=== PATIENT | male | born 1935 | race African-American/Black ===

== ENCOUNTER 2017-01-02 12:49 | Inpatient (IN) | payer MEDICARE ==
[~2017-01-02] VITALS: Ht 170.2 cm; Wt 80.7 kg
[2017-01-02 12:50] VITALS: BP 105/49
[2017-01-02] MEDS ORDERED: Esomeprazole sodium 40mg vial IVP ONE (13:00)
--- NOTE | 2017-01-02 13:00 | Emergency Room Report ---
History of Present Illness General Chief Complaint: Gastrointestinal Bleed Source: Significant Other, EMS Present Illness HPI 81-year-old male history of respiratory failure with trach, bedbound nonverbal, diabetes, multiple pressure ulcers, presenting from residential with congestion , vomiting, and coffee-ground emesis. Per residential charts patient is not on any blood thinners. History is limited as patient is nonverbal Allergies: Coded Allergies: No Known Allergies (Unverified , 01/02/17) Patient History Limited by: medical condition Past Medical History: see triage record Past Surgical History: unable to obtain Pertinent Family History: unable to obtain Reviewed Nursing Documentation: PMH: Agreed, PSxH: Agreed Review of Systems All Other Systems: limited - Dementia nonverbal Physical Exam Vital Signs Date Time Temp Pulse Resp B/P (MAP) Pulse Ox O2 Delivery O2 Flow Rate FiO2 01/02/17 12:47 100.9 127 18 105/49 99 T-piece 5.0 Sp02 EP Interpretation: reviewed, abnormal - Satting 99 on 5 L O2 General Appearance: other - Chronically ill-appearing male, trach, nonverbal Head: normocephalic, atraumatic Eyes: bilateral eye normal inspection, bilateral eye PERRL, bilateral eye EOMI ENT: normal ENT inspection, dry mucus membranes Neck: normal inspection, full range of motion, supple Respiratory: other - Trach, coarse breath sounds bilaterally, mildly tachypneic at 25, chest symmetrical Cardiovascular #1: normal inspection, regular rate, rhythm, no edema, normal capillary refill Cardiovascular #2: 2+ radial (R), 2+ radial (L) Gastrointestinal: soft, non-distended, no guarding, other - PEG tube in place, no grimace to deep palpation all quadrants of abdomen Genitourinary: no CVA tenderness Musculoskeletal: non-tender, other - Contracted lower extremities. Neurologic: other - Nonverbal and not responsive, not following commands Psychiatric: memory normal Skin: other - 5 x 5 cm sacral decubital ulcer stage III, mild purulent drainage Procedures Critical Care Time Critical Care Time 40 minutes of CC time 81-year-old male with coffee-ground emesis VS: Febrile tachycardic borderline hypotensive Sepsis criteria met Pt trached, not vented PLAN: IV access, labs, lactate, Blood/Urine Cx, Abx Anticipate admission to [facility] CC time also includes review of labs, review of EMR, paperwork from SNF, d/w hospitalist CC could include dosing of pressors, additional Abx CC time does not include procedures Medical Decision Making Diagnostic Impression: Primary Impression: Coffee ground emesis Additional Impressions: Severe sepsis Hyperkalemia UTI (urinary tract infection) Respiratory failure ER Course 81-year-old male bedbound nonverbal treat presenting with congestion, coffee- ground emesis DDX: Sepsis 2/2 UTI, PNA, bacteremia, will also consider intra-abdominal pathology such as colitis / diverticulitis / acalculous cholecystitis if no other course found but at this time abdomen soft, NT, ND. Upper GI bleed Plan: IV access - 30cc/kg bolus NS Obtain labs including cbc, bmp, blood culture, blood gas, lactate, ua, ucx CXR EKG Broad spectrum ABX Nexium IV ER course: Patient given NS at 30cc/kg bolus Patient's BP has remained stable with MAP > 65 Given broad spectrum abx - vancomycin and zosyn UTI Labs revealing leukocytosis, hyperkalemia (treated) Nexium IV given There have been no episodes of coffee-ground emesis in the emergency room Disposition: Patient will admitted to [facility] Patient requires close monitoring of respiratory/hemodynamic status and continuation of IV antibiotics. D/W Hospitalist Please note that this Emergency Department Report was dictated using [employer] blueprinting and photocopy technology software, occasionally this can lead to erroneous entry secondary to interpretation by the dictation equipment. Laboratory Tests Test 01/02/17 13:00 01/02/17 13:10 01/02/17 14:45 01/03/17 04:15 White Blood Count 15.5 K/UL (4.8-10.8) H 11.4 K/UL (4.8-10.8) H Red Blood Count 3.58 M/UL (4.70-6.10) L 3.34 M/UL (4.70-6.10) L Hemoglobin 10.1 G/DL (14.2-18.0) L 9.5 G/DL (14.2-18.0) L Hematocrit 32.2 % (42.0-52.0) L 30.1 % (42.0-52.0) L Mean Corpuscular Volume 90 FL (80-99) 90 FL (80-99) Mean Corpuscular Hemoglobin 28.1 PG (27.0-31.0) 28.4 PG (27.0-31.0) Mean Corpuscular Hemoglobin Concent 31.3 G/DL (32.0-36.0) L 31.5 G/DL (32.0-36.0) L Red Cell Distribution Width 15.7 % (11.6-14.8) H 15.7 % (11.6-14.8) H Platelet Count 262 K/UL (150-450) 240 K/UL (150-450) Mean Platelet Volume 7.7 FL (6.5-10.1) 7.3 FL (6.5-10.1) Neutrophils (%) (Auto) 81.5 % (45.0-75.0) H 70.5 % (45.0-75.0) Lymphocytes (%) (Auto) 10.4 % (20.0-45.0) L 16.6 % (20.0-45.0) L Monocytes (%) (Auto) 7.0 % (1.0-10.0) 11.5 % (1.0-10.0) H Eosinophils (%) (Auto) 0.1 % (0.0-3.0) 0.9 % (0.0-3.0) Basophils (%) (Auto) 1.0 % (0.0-2.0) 0.5 % (0.0-2.0) Prothrombin Time 9.6 SEC (9.30-11.50) Prothrombin Time INR 0.9 (0.9-1.1) PTT 21 SEC (23-33) L Sodium Level 135 mEQ/L (135-145) Pending Potassium Level 5.6 mEQ/L (3.4-4.9) H Pending Chloride Level 91 mEQ/L (98-107) L Pending Carbon Dioxide Level 33 mEQ/L (20-30) H Pending Anion Gap 11 (5-15) Blood Urea Nitrogen 21 mg/dL (7-23) Pending Creatinine 0.7 mg/dL (0.7-1.2) Pending Estimate Glomerular Filtration Rate mL/min (>60) Pending Glucose Level 105 mg/dL (74-106) Pending Hemoglobin A1c 5.9 % (< 6.0) Lactic Acid Level 2.00 mmol/L (0.66-2.22) 1.90 mmol/L (0.66-2.22) Calcium Level 9.6 mg/dL (8.6-10.2) Pending Total Bilirubin 0.2 mg/dL (0.0-1.2) 0.3 mg/dL (0.0-1.2) Aspartate Amino Transferase (AST) 34 U/L (5-40) 14 U/L (5-40) Alanine Aminotransferase (ALT) 10 U/L (3-41) 6 U/L (3-41) Alkaline Phosphatase 136 U/L (40-129) H 100 U/L (40-129) Total Creatine Kinase 88 U/L (38-174) Creatine Kinase MB < 1.5 ng/mL (< 6.7) Creatine Kinase MB Relative Index 1.7 Troponin I < 0.30 ng/mL (<=0.30) Total Protein 8.8 g/dL (6.6-8.7) H 7.1 g/dL (6.6-8.7) Albumin 2.9 g/dL (3.5-5.2) L 2.5 g/dL (3.5-5.2) L Globulin 5.9 g/dL Albumin/Globulin Ratio 0.4 (1.0-2.7) L Lipase 16 U/L (< 60) Valproic Acid Level 39 ug/mL (50-100) L Urine Color Yellow Urine Appearance Slightly cloudy Urine pH 8 (4.5-8.0) Urine Specific [place] 1.010 (1.005-1.035) Urine Protein 3+ (NEGATIVE) H Urine Glucose (UA) Negative (NEGATIVE) Urine Ketones Negative (NEGATIVE) Urine Occult Blood 5+ (NEGATIVE) H Urine Nitrite Negative (NEGATIVE) Urine Bilirubin Negative (NEGATIVE) Urine Urobilinogen Normal MG/DL (0.0-1.0) Urine Leukocyte Esterase 3+ (NEGATIVE) H Urine RBC 40-60 /HPF (0 - 0) H Urine WBC 20-30 /HPF (0 - 0) H Urine Squamous Epithelial Cells Occasional /LPF Urine Bacteria Many /HPF (NONE) H Urine Mucus Few /LPF (NONE/OCC) H Magnesium Level Pending Direct Bilirubin 0.1 mg/dL (0.1-0.3) Pro-B-Type Natriuretic Peptide Pending EKG Diagnostic Results Rate: tachycardiac Rhythm: NSR ST Segments: other - TWI aVL ASA given to the pt in ED: No Rhythm Strip Diag. Results EP Interpretation: yes Rate: 120 Rhythm: no PVC's, no ectopy Chest X-Ray Diagnostic Results Chest X-Ray Diagnostic Results : Chest X-Ray Ordered: Yes # of Views/Limited/Complete: 1 View Indication: Shortness of Breath EP Interpretation: Yes Electronically Signed by: Electronically signed by Fidel Rodriguez MD Last Vital Signs Date Time Temp Pulse Resp B/P (MAP) Pulse Ox O2 Delivery O2 Flow Rate FiO2 01/02/17 12:47 100.9 127 18 105/49 99 T-piece 5.0 Disposition: ADMITTED INPATIENT Condition: Critical Fidel Rodriguez M.D. Jan 02, 2017 13:00
[2017-01-02] MEDS ORDERED: Acetaminophen 650 MG SUPP RECTAL ONE (13:15)
[2017-01-02 13:36] LABS: APPEARANCE,URINE SLIGHTLY CLOUDY; KETONES,URINE NEGATIVE (NEGATIVE); LEUKOCYTE ESTERASE ,URINE 3+ (NEGATIVE); NITRITE,URINE NEGATIVE (NEGATIVE); PH,URINE 8 (4.5-8.0); PROTEIN,URINE 3+ (NEGATIVE); UROBILINOGEN,URINE NORMAL MG/DL (0.0-1.0)
[2017-01-02 13:37] LABS: EOSINOPHILS % (AUTO) 0.1 % (0.0-3.0); LYMPHOCYTES % (AUTO) 10.4 % (20.0-45.0); MEAN CORPUSCULAR HEMOGLOBIN 28.1 PG (27.0-31.0); MEAN CORPUSCULAR HGB CONC 31.3 G/DL (32.0-36.0); MEAN CORPUSCULAR VOLUME 90 FL (80-99); MEAN PLATELET VOLUME 7.7 FL (6.5-10.1); NEUTROPHILS % (AUTO) 81.5 % (45.0-75.0); PLATELET COUNT 262 K/UL (150-450); RED BLOOD COUNT 3.58 M/UL (4.70-6.10); RED CELL DISTRIBUTION WIDTH 15.7 % (11.6-14.8); WHITE BLOOD COUNT 15.5 K/UL (4.8-10.8)
[2017-01-02 13:44] LABS: INR 0.9 (0.9-1.1); PROTHROMBIN TIME 9.6 SEC (9.30-11.50)
[2017-01-02] MEDS ORDERED: Zosyn 3.375gm inj ONE (13:44)
[2017-01-02] MEDS ORDERED: Piperacillin/Tazobactam 3.375 GM in NS 110 ML IVPB ONE (13:45)
[2017-01-02] MEDS ORDERED: Vancomycin 1.5gm/D5W 250ml 250 ML IVPB ONE (13:45)
[2017-01-02 13:47] LABS: RBC,URINE 40-60 /HPF (0 - 0); SQUAMOUS EPITHELIAL CELL,UR OCCASIONAL /LPF (NONE/OCC); WBC,URINE 20-30 /HPF (0 - 0)
[2017-01-02 13:48] LABS: BACTERIA,URINE MANY /HPF; MUCUS,URINE FEW /LPF (NONE/OCC)
[2017-01-02 13:51] LABS: ALANINE AMINOTRANSFERASE 10 U/L (3-41); ALBUMIN/GLOBULIN RATIO 0.4 (1.0-2.7); ANION GAP 11 (5-15); ASPARTATE AMINO TRANSFERASE 34 U/L (5-40); CALCIUM 9.6 mg/dL (8.6-10.2); CARBON DIOXIDE 33 mEQ/L (20-30); CHLORIDE 91 mEQ/L (98-107); CREATININE 0.7 mg/dL (0.7-1.2); HEMOLYSIS 85; LIPASE 16 U/L (< 60); POTASSIUM 5.6 mEQ/L (3.4-4.9); SODIUM 135 mEQ/L (135-145); TOTAL PROTEIN 8.8 g/dL (6.6-8.7)
[2017-01-02 13:52] LABS: TROPONIN I < 0.30 ng/mL (<=0.30)
[2017-01-02 13:56] LABS: REFLEX LACTIC ACID YES OR NO YES
[2017-01-02] MEDS ORDERED: ACETAMINOP160 MG/51 GT (13:56)
[2017-01-02] MEDS ORDERED: HIBICLENS118 ML ORAL (13:56)
[2017-01-02] MEDS ORDERED: DEPAKENE250 MG/5 M GT (13:56)
[2017-01-02] MEDS ORDERED: AMIKACIN S500 MG/2 M INH (13:56)
[2017-01-02] MEDS ORDERED: EPOGEN10000 UNIT SUBQ (13:57)
[2017-01-02] MEDS ORDERED: COLACE100 MG/10 GT (13:57)
[2017-01-02] MEDS ORDERED: HEPARIN SO5000 UNIT2 SUBQ (14:00)
[2017-01-02] MEDS ORDERED: FAMOTIDINE20 MG GT (14:00)
[2017-01-02] MEDS ORDERED: Sodium Bicarbonate 50ml Carp IV ONE (14:00)
[2017-01-02] MEDS ORDERED: FERROUS SU220 MG/53 GT (14:00)
[2017-01-02] MEDS ORDERED: LEVEMIR FL100 UNIT/2 SQ (14:00)
[2017-01-02] MEDS ORDERED: Calcium Gluconate 1gm/10ml vial IVP ONE (14:00)
[2017-01-02 14:02] LABS: CKMB < 1.5 ng/mL (< 6.7)
[2017-01-02 14:04] VITALS: BP 116/70
[2017-01-02] MEDS ORDERED: VIMPAT100 MG GT (14:05)
[2017-01-02] MEDS ORDERED: LEVETIRACE100 MG/1 M GT (14:05)
[2017-01-02] MEDS ORDERED: NORCO 5-325 TA1 EAC1 ORAL (14:05)
[2017-01-02] MEDS ORDERED: COMBIVENT RESPIM4 GM IH (14:05)
[2017-01-02] MEDS ORDERED: VITAMIN C250 MG GT (14:08)
[2017-01-02] MEDS ORDERED: ZINC SULFATE220 M1 GT (14:08)
[2017-01-02] MEDS ORDERED: POLYETHYLENE GL17 GM GT (14:08)
[2017-01-02] MEDS ORDERED: NOVOLOG100 UNIT/3 SUBQ (14:08)
[2017-01-02 16:00] VITALS: BP 113/59
[2017-01-02] MEDS ORDERED: DuoNeb 0.5-3(2.5)mg/3ml neb HHN PRN (16:15)
[2017-01-02] MEDS ORDERED: Milk of Magnesia 30ml Ud ORAL PRN (16:15)
[2017-01-02] MEDS: D5NS 1,000 ML IV SCH (16:51)
[2017-01-02] MEDS ORDERED: Miralax 17gm pkt GT PRN (17:00)
[2017-01-02 17:35] LABS: HEMOGLOBIN A1C 5.9 % (< 6.0)
--- NOTE | 2017-01-02 17:52 | Infectious Diseases Prog Note ---
Assessment/Plan Assessment/Plan Full consult to follow: A) 1) sepsis, uti, fever, leukocytosis, ? pna 2) pmh noted 3) allergies - nkda P) 1) zosyn and vancomycin 2) check chest x-ray, labs and cultures 3) thank you Subjective Allergies: Coded Allergies: No Known Allergies (Unverified , 01/02/17) Objective Vital Signs Last 24 Hour Vital Signs Date Time Temp Pulse Resp B/P (MAP) Pulse Ox O2 Delivery O2 Flow Rate FiO2 01/02/17 16:00 129 01/02/17 16:00 99.2 118 20 113/59 100 T-piece 5.0 01/02/17 15:20 134 23 145/55 100 T-piece 01/02/17 15:01 98.7 01/02/17 14:10 5.0 01/02/17 14:10 131 22 T-piece 5.0 01/02/17 14:04 127 20 116/70 100 T-piece 5.0 01/02/17 12:50 101.9 127 18 105/49 100 T-piece 5.0 01/02/17 12:47 100.9 127 18 105/49 99 T-piece 5.0 Height (Feet): 5 Height (Inches): 8.00 Weight (Pounds): 180 Laboratory Tests Test 01/02/17 13:00 01/02/17 13:10 01/02/17 14:45 White Blood Count 15.5 K/UL (4.8-10.8) H Red Blood Count 3.58 M/UL (4.70-6.10) L Hemoglobin 10.1 G/DL (14.2-18.0) L Hematocrit 32.2 % (42.0-52.0) L Mean Corpuscular Volume 90 FL (80-99) Mean Corpuscular Hemoglobin 28.1 PG (27.0-31.0) Mean Corpuscular Hemoglobin Concent 31.3 G/DL (32.0-36.0) L Red Cell Distribution Width 15.7 % (11.6-14.8) H Platelet Count 262 K/UL (150-450) Mean Platelet Volume 7.7 FL (6.5-10.1) Neutrophils (%) (Auto) 81.5 % (45.0-75.0) H Lymphocytes (%) (Auto) 10.4 % (20.0-45.0) L Monocytes (%) (Auto) 7.0 % (1.0-10.0) Eosinophils (%) (Auto) 0.1 % (0.0-3.0) Basophils (%) (Auto) 1.0 % (0.0-2.0) Prothrombin Time 9.6 SEC (9.30-11.50) Prothromb Time International Ratio 0.9 (0.9-1.1) Activated Partial Thromboplast Time 21 SEC (23-33) L Sodium Level 135 mEQ/L (135-145) Potassium Level 5.6 mEQ/L (3.4-4.9) H Chloride Level 91 mEQ/L (98-107) L Carbon Dioxide Level 33 mEQ/L (20-30) H Anion Gap 11 (5-15) Blood Urea Nitrogen 21 mg/dL (7-23) Creatinine 0.7 mg/dL (0.7-1.2) Estimat Glomerular Filtration Rate mL/min (>60) Glucose Level 105 mg/dL (74-106) Hemoglobin A1c 5.9 % (< 6.0) Lactic Acid Level 2.00 mmol/L (0.66-2.22) 1.90 mmol/L (0.66-2.22) Calcium Level 9.6 mg/dL (8.6-10.2) Total Bilirubin 0.2 mg/dL (0.0-1.2) Aspartate Amino Transf (AST/SGOT) 34 U/L (5-40) Alanine Aminotransferase (ALT/SGPT) 10 U/L (3-41) Alkaline Phosphatase 136 U/L (40-129) H Total Creatine Kinase 88 U/L (38-174) Creatine Kinase MB < 1.5 ng/mL (< 6.7) Creatine Kinase MB Relative Index 1.7 Troponin I < 0.30 ng/mL (<=0.30) Total Protein 8.8 g/dL (6.6-8.7) H Albumin 2.9 g/dL (3.5-5.2) L Globulin 5.9 g/dL Albumin/Globulin Ratio 0.4 (1.0-2.7) L Lipase 16 U/L (< 60) Valproic Acid (Depakene) Level 39 ug/mL (50-100) L Urine Color Yellow Urine Appearance Slightly cloudy Urine pH 8 (4.5-8.0) Urine Specific [place] 1.010 (1.005-1.035) Urine Protein 3+ (NEGATIVE) H Urine Glucose (UA) Negative (NEGATIVE) Urine Ketones Negative (NEGATIVE) Urine Occult Blood 5+ (NEGATIVE) H Urine Nitrite Negative (NEGATIVE) Urine Bilirubin Negative (NEGATIVE) Urine Urobilinogen Normal MG/DL (0.0-1.0) Urine Leukocyte Esterase 3+ (NEGATIVE) H Urine RBC 40-60 /HPF (0 - 0) H Urine WBC 20-30 /HPF (0 - 0) H Urine Squamous Epithelial Cells Occasional /LPF Urine Bacteria Many /HPF (NONE) H Urine Mucus Few /LPF (NONE/OCC) H Current Medications Medications (Trade) Dose Ordered Sig/Dorie Route PRN Reason Start Time Stop Time Status Last Admin Dose Admin Acetaminophen (Tylenol) 650 mg Q4H PRN ORAL Mild Pain (Pain Scale 1-3) 01/02/17 16:15 02/01/17 16:14 Albuterol/ Ipratropium (DuoNeb 0.5-3(2.5)mg/3ml) 3 ml Q4H PRN HHN Shortness of Breath 01/02/17 16:15 01/07/17 16:14 Bisacodyl (Dulcolax) 10 mg DAILYPRN PRN RECTAL Constipation 01/02/17 16:15 02/01/17 16:14 Dextrose (Dextrose 50%) STAT PRN IV Hypoglycemia 01/02/17 16:15 02/01/17 16:14 Dextrose/Sodium Chloride 1,000 ml @ 100 mls/hr Q10H IV 01/02/17 17:00 02/01/17 16:59 01/02/17 16:51 Docusate Sodium (Colace) 100 mg EVERY 12 HOURS ORAL 01/03/17 09:00 02/02/17 08:59 Heparin Sodium (Porcine) (Heparin 5000 units/ml) 5,000 units EVERY 12 HOURS SUBQ 01/02/17 21:00 02/01/17 20:59 Insulin Aspart (NovoLOG) Q6HR SUBQ 01/03/17 00:00 02/01/17 20:59 Ipratropium [place] (Atrovent) 500 mcg Q6HRT HHN 01/02/17 17:00 01/07/17 16:59 Lacosamide (Vimpat) 100 mg EVERY 12 HOURS ORAL 01/02/17 21:00 02/01/17 20:59 Levetiracetam (Keppra) 1,500 mg BID GT 01/02/17 18:00 02/01/17 17:59 Magnesium Hydroxide (Mom) 30 ml HSPRN PRN ORAL Constipation 01/02/17 16:15 02/01/17 16:14 Ondansetron HCl (Zofran) 4 mg Q6H PRN IVP Nausea & Vomiting 01/02/17 16:15 02/01/17 16:14 Pantoprazole (Protonix) 40 mg DAILY ORAL 01/03/17 09:00 02/02/17 08:59 Piperacillin Sod/ Tazobactam Sod 3.375 gm/Dextrose 110 ml @ 27.5 mls/hr Q8HR IVPB 01/02/17 22:00 01/09/17 21:59 Polyethylene Glycol (Miralax) 17 gm DAILYPRN PRN GT Constipation 01/02/17 17:00 02/01/17 16:59 Valproic Acid (Depakene) 500 mg Q8HR GT 01/02/17 22:00 02/01/17 21:59 Vancomycin HCl (Vanco rx to dose) 1 ea DAILY PRN MISC Per rx protocol 01/02/17 16:15 02/01/17 16:14 Vancomycin HCl/ Dextrose 250 ml @ 166.667 mls/hr Q24H IVPB 01/03/17 12:00 01/08/17 11:59 JENNIFER BEVERLY Jan 02, 2017 17:52
[2017-01-02] MEDS: levETIRAcetam 500mg/5ml Liquid GT SCH (18:02)
[2017-01-02] MEDS: Ipratropium 0.02% Inh Soln 2.5ml UD HHN SCH (19:24)
[2017-01-02 20:00] VITALS: BP_SYST 120; BP_SYST 126; BP_DIAS 60; BP_DIAS 64
--- NOTE | 2017-01-02 20:06 | History and Physical ---
History of Present Illness General Date patient seen: Jan 02, 2017 Time patient seen: 18:00 Reason for Hospitalization: Sepsis, UTI, concern for GI bleed Present Illness HPI 81 year old male with pmh of HTN, DM2, seizure disorder, advanced dementia, s/p trach and PEG, recurrently infected sacral decubitus ulcers presenting from SNF with congestion and coffee-ground emesis. At baseline pt is nonverbal, nonambulatory, bedbound and demented at a senior care. He is poorly responsive , occasionally spontaneously opens eyes but not to command. Per senior care charts patient is not on any blood thinners. In ED, pt febrile to 101, WBC 15K, tachycardic to 140s. Pt found to have positive U/A. Given vanco and zosyn for sepsis, as well as IVFs. No coffee- ground emesis noted. Pt started on PPI. Allergies: Coded Allergies: No Known Allergies (Unverified , 01/02/17) Medication History Scheduled Amikacin Sulfate (Amikacin Sulfate*), 500 MG INH BID, (Reported) Ascorbic Acid* (Vitamin C*), Unknown Dose GT DAILY, (Reported) Chlorhexidine Gluconate* (Hibiclens*), 5 OZ ORAL EVERY 12 HOURS, (Reported) Docusate Sodium (Docusate Sodium), 100 MG GT TWICE A DAY, (Reported) Epoetin Dereje (Epogen), 10,000 UNIT SUBQ 3XW, (Reported) Famotidine (Famotidine), 20 MG GT TWICE A DAY, (Reported) Ferrous Sulfate (Ferrous Sulfate), 7.5 MG GT DAILY, (Reported) Heparin Sod (Porcine) (Heparin Sodium*), 5,000 UNITS SUBQ EVERY 12 HOURS, ( Reported) Insulin Aspart* (Novolog*), 0 SUBQ BEFORE MEALS AND HS, (Reported) Insulin Detemir (Levemir Flextouch), 42 UNIT SQ BID, (Reported) Lacosamide (Vimpat), 100 MG GT EVERY 12 HOURS, (Reported) Levetiracetam* (Levetiracetam*), 1,500 MG GT BID, (Reported) Valproate Sodium (Depakene), 500 MG GT EVERY 8 HOURS, (Reported) Zinc Sulfate (Zinc Sulfate*), 220 MG GT DAILY, (Reported) Scheduled PRN Acetaminophen* (Acetaminophen*), 320 MG GT Q6H PRN for Mild Pain/Temp > 100.5, ( Reported) Hydrocodone Bit/Acetaminophen 5-325* ([place] 5-325 Tablet*), 1 TAB ORAL Q6HR PRN for For Pain, (Reported) Ipratropium/Albuterol Sulfate (Combivent Respimat Inhal [place]), 3 ML IH EVERY 6 HOURS PRN for Shortness of Breath, (Reported) Polyethylene Glycol 3350* (Polyethylene Glycol 3350*), 17 GM GT DAILY PRN for Constipation, (Reported) Patient History History Provided By: Family Member, Medical Record, PMD Healthcare decision maker Resuscitation status Full Code Advanced Directive on File Past Medical/Surgical History Past Medical/Surgical History: (1) Advanced dementia (2) Tracheostomy in place (3) S/P percutaneous endoscopic gastrostomy (PEG) tube placement (4) HTN (hypertension) (5) Seizure disorder (6) Diabetes mellitus Family History Family History: Patient reports no known family medical history. Social History Social History: (1) lives at [facility] Review of Systems ROS Narrative Unable to obtain as pt w/ dementia and non-verbal Physical Exam Physical Exam Narrative General: Non-verbal, unresponsive to voice or pain, +trach Head: normocephalic, without obvious abnormality, atraumatic Eyes: conjunctivae/corneas clear. PERRL Throat: lips, mucosa, and tongue normal. MMM Neck: supple, symmetrical, trachea midline, and no JVD Lungs: clear to auscultation bilaterally Heart: regular rate and rhythm, S1, S2 normal, no murmur, click, rub or gallop Abdomen: soft, non-tender, non-distended, bowel sounds normal; +PEG Extremities: extremities normal, atraumatic, no cyanosis or edema Pulses: 2+ and symmetric Skin: skin color, texture, turgor normal; no rashes or lesions Neurologic: grossly normal, no focal deficits Last 24 Hour Vital Signs Date Time Temp Pulse Resp B/P (MAP) Pulse Ox O2 Delivery O2 Flow Rate FiO2 01/02/17 19:28 55 01/02/17 19:28 104 20 100 Trach Collar 5.0 35 01/02/17 19:27 Trach Collar 5.0 35 01/02/17 19:24 104 20 T-piece 5.0 01/02/17 19:24 104 20 Trach Collar 5.0 35 9/16/17 16:00 129 01/02/17 16:00 99.2 118 20 113/59 100 T-piece 5.0 01/02/17 15:20 134 23 145/55 100 T-piece 01/02/17 15:01 98.7 01/02/17 14:10 5.0 01/02/17 14:10 131 22 T-piece 5.0 01/02/17 14:04 127 20 116/70 100 T-piece 5.0 01/02/17 12:50 101.9 127 18 105/49 100 T-piece 5.0 01/02/17 12:47 100.9 127 18 105/49 99 T-piece 5.0 Intake and Output 01/02/17 01/03/17 19:00 07:00 Intake Total 1360 ml Output Total 750 ml Balance 610 ml Intake Free Water 50 ml IV Total 1310 ml Output Urine Total 750 ml Laboratory Tests Test 01/02/17 13:00 01/02/17 13:10 01/02/17 14:45 White Blood Count 15.5 K/UL (4.8-10.8) H Red Blood Count 3.58 M/UL (4.70-6.10) L Hemoglobin 10.1 G/DL (14.2-18.0) L Hematocrit 32.2 % (42.0-52.0) L Mean Corpuscular Volume 90 FL (80-99) Mean Corpuscular Hemoglobin 28.1 PG (27.0-31.0) Mean Corpuscular Hemoglobin Concent 31.3 G/DL (32.0-36.0) L Red Cell Distribution Width 15.7 % (11.6-14.8) H Platelet Count 262 K/UL (150-450) Mean Platelet Volume 7.7 FL (6.5-10.1) Neutrophils (%) (Auto) 81.5 % (45.0-75.0) H Lymphocytes (%) (Auto) 10.4 % (20.0-45.0) L Monocytes (%) (Auto) 7.0 % (1.0-10.0) Eosinophils (%) (Auto) 0.1 % (0.0-3.0) Basophils (%) (Auto) 1.0 % (0.0-2.0) Prothrombin Time 9.6 SEC (9.30-11.50) Prothromb Time International Ratio 0.9 (0.9-1.1) Activated Partial Thromboplast Time 21 SEC (23-33) L Sodium Level 135 mEQ/L (135-145) Potassium Level 5.6 mEQ/L (3.4-4.9) H Chloride Level 91 mEQ/L (98-107) L Carbon Dioxide Level 33 mEQ/L (20-30) H Anion Gap 11 (5-15) Blood Urea Nitrogen 21 mg/dL (7-23) Creatinine 0.7 mg/dL (0.7-1.2) Estimat Glomerular Filtration Rate mL/min (>60) Glucose Level 105 mg/dL (74-106) Hemoglobin A1c 5.9 % (< 6.0) Lactic Acid Level 2.00 mmol/L (0.66-2.22) 1.90 mmol/L (0.66-2.22) Calcium Level 9.6 mg/dL (8.6-10.2) Total Bilirubin 0.2 mg/dL (0.0-1.2) Aspartate Amino Transf (AST/SGOT) 34 U/L (5-40) Alanine Aminotransferase (ALT/SGPT) 10 U/L (3-41) Alkaline Phosphatase 136 U/L (40-129) H Total Creatine Kinase 88 U/L (38-174) Creatine Kinase MB < 1.5 ng/mL (< 6.7) Creatine Kinase MB Relative Index 1.7 Troponin I < 0.30 ng/mL (<=0.30) Total Protein 8.8 g/dL (6.6-8.7) H Albumin 2.9 g/dL (3.5-5.2) L Globulin 5.9 g/dL Albumin/Globulin Ratio 0.4 (1.0-2.7) L Lipase 16 U/L (< 60) Valproic Acid (Depakene) Level 39 ug/mL (50-100) L Urine Color Yellow Urine Appearance Slightly cloudy Urine pH 8 (4.5-8.0) Urine Specific [place] 1.010 (1.005-1.035) Urine Protein 3+ (NEGATIVE) H Urine Glucose (UA) Negative (NEGATIVE) Urine Ketones Negative (NEGATIVE) Urine Occult Blood 5+ (NEGATIVE) H Urine Nitrite Negative (NEGATIVE) Urine Bilirubin Negative (NEGATIVE) Urine Urobilinogen Normal MG/DL (0.0-1.0) Urine Leukocyte Esterase 3+ (NEGATIVE) H Urine RBC 40-60 /HPF (0 - 0) H Urine WBC 20-30 /HPF (0 - 0) H Urine Squamous Epithelial Cells Occasional /LPF Urine Bacteria Many /HPF (NONE) H Urine Mucus Few /LPF (NONE/OCC) H Height (Feet): 5 Height (Inches): 8.00 Weight (Pounds): 180 Medications Current Medications Medications (Trade) Dose Ordered Sig/Dorie Route PRN Reason Start Time Stop Time Status Last Admin Dose Admin Acetaminophen (Tylenol) 650 mg Q4H PRN ORAL Mild Pain (Pain Scale 1-3) 01/02/17 16:15 02/01/17 16:14 Albuterol/ Ipratropium (DuoNeb 0.5-3(2.5)mg/3ml) 3 ml Q4H PRN HHN Shortness of Breath 01/02/17 16:15 01/07/17 16:14 Bisacodyl (Dulcolax) 10 mg DAILYPRN PRN RECTAL Constipation 01/02/17 16:15 02/01/17 16:14 Dextrose (Dextrose 50%) STAT PRN IV Hypoglycemia 01/02/17 16:15 02/01/17 16:14 Dextrose/Sodium Chloride 1,000 ml @ 100 mls/hr Q10H IV 01/02/17 17:00 02/01/17 16:59 01/02/17 16:51 Docusate Sodium (Colace) 100 mg EVERY 12 HOURS ORAL 01/03/17 09:00 02/02/17 08:59 Heparin Sodium (Porcine) (Heparin 5000 units/ml) 5,000 units EVERY 12 HOURS SUBQ 01/02/17 21:00 02/01/17 20:59 Insulin Aspart (NovoLOG) Q6HR SUBQ 01/03/17 00:00 02/01/17 20:59 Ipratropium [place] (Atrovent) 500 mcg Q6HRT HHN 01/02/17 17:00 01/07/17 16:59 01/02/17 19:24 Lacosamide (Vimpat) 100 mg EVERY 12 HOURS ORAL 01/02/17 21:00 02/01/17 20:59 Levetiracetam (Keppra) 1,500 mg BID GT 01/02/17 18:00 02/01/17 17:59 01/02/17 18:02 Magnesium Hydroxide (Mom) 30 ml HSPRN PRN ORAL Constipation 01/02/17 16:15 02/01/17 16:14 Ondansetron HCl (Zofran) 4 mg Q6H PRN IVP Nausea & Vomiting 01/02/17 16:15 02/01/17 16:14 Pantoprazole (Protonix) 40 mg DAILY ORAL 01/03/17 09:00 02/02/17 08:59 Piperacillin Sod/ Tazobactam Sod 3.375 gm/Dextrose 110 ml @ 27.5 mls/hr Q8HR IVPB 01/02/17 22:00 01/09/17 21:59 Polyethylene Glycol (Miralax) 17 gm DAILYPRN PRN GT Constipation 01/02/17 17:00 02/01/17 16:59 Valproic Acid (Depakene) 500 mg Q8HR GT 01/02/17 22:00 02/01/17 21:59 Vancomycin HCl (Vanco rx to dose) 1 ea DAILY PRN MISC Per rx protocol 01/02/17 16:15 02/01/17 16:14 Vancomycin HCl/ Dextrose 250 ml @ 166.667 mls/hr Q24H IVPB 01/03/17 12:00 01/08/17 11:59 Assessment/Plan Problem List: (1) Decubitus ulcer of sacral region, stage 4 ICD Codes: L89.154 - Pressure ulcer of sacral region, stage 4 SNOMED: 184489775, 722430552 (2) Severe sepsis ICD Codes: A41.9 - Sepsis, unspecified organism; R65.20 - Severe sepsis without septic shock SNOMED: 22300852 (3) UTI (urinary tract infection) ICD Codes: N39.0 - Urinary tract infection, site not specified SNOMED: 90962866 (4) Coffee ground emesis ICD Codes: K92.0 - Hematemesis SNOMED: 191690775, 62096278 (5) Acute blood loss anemia ICD Codes: D62 - Acute posthemorrhagic anemia SNOMED: 043903066 (6) Advanced dementia ICD Codes: F03.90 - Unspecified dementia without behavioral disturbance SNOMED: 55554357 (7) Tracheostomy in place ICD Codes: Z93.0 - Tracheostomy status SNOMED: 837682311 (8) S/P percutaneous endoscopic gastrostomy (PEG) tube placement ICD Codes: Z93.1 - Gastrostomy status SNOMED: 670263917 (9) Hyperkalemia ICD Codes: E87.5 - Hyperkalemia SNOMED: 48397139 (10) HTN (hypertension) ICD Codes: I10 - Essential (primary) hypertension SNOMED: 73683944 (11) Seizure disorder ICD Codes: G40.909 - Epilepsy, unspecified, not intractable, without status epilepticus SNOMED: 393719914 (12) Diabetes mellitus ICD Codes: E11.9 - Type 2 diabetes mellitus without complications SNOMED: 67717731 (13) Functional quadriplegia ICD Codes: R53.2 - Functional quadriplegia SNOMED: 932759037423638 Status: stable Assessment/Plan Admit to [facility], Pulm and ID consulted Broad-spectrum abx: vanco and zosyn for now (01/02-) F/u urine and blood cultures IVFs Monitor lytes closely Type and screen Trend CBC, transfuse for hgb<7.5 or active bleeding NPO, hold tube feeds for now Trach and PEG care Wound care consult Supportive care DVT Prophylaxis: SCD Code Status: Full Hospital Classification Declaration: Based on this initial evaluation, and depending on the patient's clinical course, I anticipate that this patient will require hospitalization for 2-3 days for severe sepsis and close respiratory/ hemodynamic monitoring. Disposition: Once the patient is stable to leave the hospital, I anticipate the patient will likely be discharged to the following environment: back to SNF I spent 70 minutes on this patient's case, and 40 minutes were dedicated to counseling and/or care coordination. Discussed with patient/family, nursing staff, SW/CM, pulm, ID, GI regarding clinical status, treatment course, and disposition planning. Time of note may not reflect time of encounter. Travis Hinojosa M.D. Jan 02, 2017 20:06
[2017-01-02] MEDS: Heparin 5000 units/ml inj SUBQ SCH (21:00)
[2017-01-02] MEDS ORDERED: Dyna-Hex 2% Top Sol 8oz TOPIC SCH (21:00)
[2017-01-02] MEDS ORDERED: NovoLOG Insulin Flexpen SUBQ SCH (21:00)
[2017-01-02] MEDS: Lacosamide 100 MG TABLET ORAL SCH (21:36)
[2017-01-02] MEDS: Valproic Acid 250mg/5ml Liquid GT SCH (21:37)
[2017-01-02] MEDS: Piperacillin/Tazobactam 3.375 GM in D5W 110 ML IVPB SCH (21:38)
[2017-01-02] MEDS: NovoLOG Insulin Flexpen SUBQ SCH (23:49)
[2017-01-03] VITALS: BP 120/60
[2017-01-03] MEDS: Ipratropium 0.02% Inh Soln 2.5ml UD HHN SCH ×4 (01:12→19:17)
[2017-01-03] MEDS: D5NS 1,000 ML IV SCH ×3 (02:51→23:00)
[2017-01-03 04:00] VITALS: BP 127/58
[2017-01-03 05:24] LABS: BASOPHILS % (AUTO) 0.5 % (0.0-2.0); EOSINOPHILS % (AUTO) 0.9 % (0.0-3.0); LYMPHOCYTES % (AUTO) 16.6 % (20.0-45.0); MEAN CORPUSCULAR HEMOGLOBIN 28.4 PG (27.0-31.0); MEAN CORPUSCULAR HGB CONC 31.5 G/DL (32.0-36.0); MEAN CORPUSCULAR VOLUME 90 FL (80-99); MEAN PLATELET VOLUME 7.3 FL (6.5-10.1); MONOCYTES % (AUTO) 11.5 % (1.0-10.0); NEUTROPHILS % (AUTO) 70.5 % (45.0-75.0); PLATELET COUNT 240 K/UL (150-450); RED BLOOD COUNT 3.34 M/UL (4.70-6.10); RED CELL DISTRIBUTION WIDTH 15.7 % (11.6-14.8); WHITE BLOOD COUNT 11.4 K/UL (4.8-10.8)
[2017-01-03] MEDS: Valproic Acid 250mg/5ml Liquid GT SCH ×3 (05:57→21:33)
[2017-01-03] MEDS: NovoLOG Insulin Flexpen SUBQ SCH ×3 (05:58→17:35)
[2017-01-03] MEDS: Piperacillin/Tazobactam 3.375 GM in D5W 110 ML IVPB SCH ×3 (05:58→21:35)
[2017-01-03 06:39] LABS: BILIRUBIN,DIRECT 0.1 mg/dL (0.1-0.3); TOTAL PROTEIN 7.1 g/dL (6.6-8.7)
[2017-01-03 07:38] LABS: CHLORIDE 100 mEQ/L (98-107); POTASSIUM 3.8 mEQ/L (3.4-4.9); SODIUM 140 mEQ/L (135-145)
[2017-01-03 07:42] LABS: ANION GAP 9 (5-15); CALCIUM 9.1 mg/dL (8.6-10.2); CARBON DIOXIDE 31 mEQ/L (20-30); CREATININE 0.5 mg/dL (0.7-1.2)
[2017-01-03 07:50] LABS: MAGNESIUM 1.9 mg/dL (1.7-2.5)
[2017-01-03 08:00] VITALS: BP 113/56
[2017-01-03] MEDS: Lacosamide 100 MG TABLET ORAL SCH ×2 (09:00→20:58)
[2017-01-03] MEDS: Docusate 100mg cap ORAL SCH ×2 (09:01→20:58)
[2017-01-03] MEDS: levETIRAcetam 500mg/5ml Liquid GT SCH ×2 (09:01→17:35)
[2017-01-03] MEDS: Heparin 5000 units/ml inj SUBQ SCH ×2 (09:03→20:58)
[2017-01-03] MEDS ORDERED: D5NS 1000ml IV ONE (10:04)
[2017-01-03] MEDS ORDERED: Tubing IV Secondary IV ONE (10:04)
[2017-01-03] MEDS ORDERED: NS 275ml ONE (10:04)
--- NOTE | 2017-01-03 11:00 | Consultation ---
History of Present Illness General Date patient seen: Jan 03, 2017 Chief Complaint: Gastrointestinal Bleed Referring physician: Dr. Robles Present Illness HPI 81-year-old male with PMHx of of chronic respiratory failure with trach, bedbound nonverbal, diabetes, multiple pressure ulcers, PEG, end-stage Alzheimers, presenting from [facility] with congestion, vomiting, and coffee- ground emesis. Patient was febrile in [facility] and admitted to [facility] for further evaluation and treatment. Allergies: Coded Allergies: No Known Allergies (Unverified , 01/02/17) Medication History Scheduled Amikacin Sulfate (Amikacin Sulfate*), 500 MG INH BID, (Reported) Ascorbic Acid* (Vitamin C*), Unknown Dose GT DAILY, (Reported) Chlorhexidine Gluconate* (Hibiclens*), 5 OZ ORAL EVERY 12 HOURS, (Reported) Docusate Sodium (Docusate Sodium), 100 MG GT TWICE A DAY, (Reported) Epoetin Dereje (Epogen), 10,000 UNIT SUBQ 3XW, (Reported) Famotidine (Famotidine), 20 MG GT TWICE A DAY, (Reported) Ferrous Sulfate (Ferrous Sulfate), 7.5 MG GT DAILY, (Reported) Heparin Sod (Porcine) (Heparin Sodium*), 5,000 UNITS SUBQ EVERY 12 HOURS, ( Reported) Insulin Aspart* (Novolog*), 0 SUBQ BEFORE MEALS AND HS, (Reported) Insulin Detemir (Levemir Flextouch), 42 UNIT SQ BID, (Reported) Lacosamide (Vimpat), 100 MG GT EVERY 12 HOURS, (Reported) Levetiracetam* (Levetiracetam*), 1,500 MG GT BID, (Reported) Valproate Sodium (Depakene), 500 MG GT EVERY 8 HOURS, (Reported) Zinc Sulfate (Zinc Sulfate*), 220 MG GT DAILY, (Reported) Scheduled PRN Acetaminophen* (Acetaminophen*), 320 MG GT Q6H PRN for Mild Pain/Temp > 100.5, ( Reported) Hydrocodone Bit/Acetaminophen 5-325* ([place] 5-325 Tablet*), 1 TAB ORAL Q6HR PRN for For Pain, (Reported) Ipratropium/Albuterol Sulfate (Combivent Respimat Inhal [place]), 3 ML IH EVERY 6 HOURS PRN for Shortness of Breath, (Reported) Polyethylene Glycol 3350* (Polyethylene Glycol 3350*), 17 GM GT DAILY PRN for Constipation, (Reported) Patient History Healthcare decision maker Resuscitation status Full Code Advanced Directive on File Past Medical/Surgical History Past Medical/Surgical History: (1) Alzheimer's dementia (2) Tracheostomy care (3) G tube feedings Review of Systems All Other Systems: negative except mentioned in HPI Physical Exam General Appearance: WD/WN Lines, tubes and drains: peripheral HEENT: normocephalic, atraumatic Neck: non-tender, normal alignment Respiratory/Chest: chest wall non-tender, lungs clear Cardiovascular/Chest: normal peripheral pulses, normal rate Abdomen: normal bowel sounds, non tender Genitourinary/Rectal: normal genital exam, normal rectal exam Extremities: normal range of motion Skin Exam: normal pigmentation Last 24 Hour Vital Signs Date Time Temp Pulse Resp B/P (MAP) Pulse Ox O2 Delivery O2 Flow Rate FiO2 01/03/17 08:00 74 01/03/17 08:00 97.9 75 20 113/56 100 T-piece 5.0 01/03/17 08:00 5.0 01/03/17 07:01 99 T-piece 6.0 35 01/03/17 07:01 T-piece 6.0 35 01/03/17 06:35 88 20 99 Trach Collar 6.0 35 01/03/17 06:30 89 20 99 Trach Collar 6.0 35 01/03/17 06:30 35 01/03/17 04:00 79 01/03/17 04:00 97.7 80 20 127/58 100 T-piece 5.0 01/03/17 04:00 5.0 01/03/17 01:19 86 20 99 Trach Collar 5.0 30 01/03/17 01:12 55 01/03/17 01:12 70 20 97 Trach Collar 5.0 35 01/03/17 00:00 97.7 96 20 120/60 100 T-piece 5.0 01/03/17 00:00 85 01/02/17 20:00 5.0 01/02/17 20:00 111 01/02/17 20:00 99.0 111 19 126/64 100 T-piece 5.0 01/02/17 19:45 110 20 100 Trach Collar 5.0 35 01/02/17 19:28 55 01/02/17 19:28 104 20 100 Trach Collar 5.0 35 01/02/17 19:27 Trach Collar 5.0 35 01/02/17 19:24 104 20 T-piece 5.0 01/02/17 19:24 104 20 Trach Collar 5.0 35 01/02/17 16:00 129 01/02/17 16:00 99.2 118 20 113/59 100 T-piece 5.0 01/02/17 15:20 134 23 145/55 100 T-piece 01/02/17 15:01 98.7 01/02/17 14:10 5.0 01/02/17 14:10 131 22 T-piece 5.0 01/02/17 14:04 127 20 116/70 100 T-piece 5.0 01/02/17 12:50 101.9 127 18 105/49 100 T-piece 5.0 01/02/17 12:47 100.9 127 18 105/49 99 T-piece 5.0 Intake and Output 01/03/17 01/04/17 19:00 07:00 Intake Total 182.5 ml Balance 182.5 ml IV Total 182.5 ml Laboratory Tests Test 01/02/17 13:00 01/02/17 13:10 01/02/17 14:45 01/03/17 04:15 White Blood Count 15.5 K/UL (4.8-10.8) H 11.4 K/UL (4.8-10.8) H Red Blood Count 3.58 M/UL (4.70-6.10) L 3.34 M/UL (4.70-6.10) L Hemoglobin 10.1 G/DL (14.2-18.0) L 9.5 G/DL (14.2-18.0) L Hematocrit 32.2 % (42.0-52.0) L 30.1 % (42.0-52.0) L Mean Corpuscular Volume 90 FL (80-99) 90 FL (80-99) Mean Corpuscular Hemoglobin 28.1 PG (27.0-31.0) 28.4 PG (27.0-31.0) Mean Corpuscular Hemoglobin Concent 31.3 G/DL (32.0-36.0) L 31.5 G/DL (32.0-36.0) L Red Cell Distribution Width 15.7 % (11.6-14.8) H 15.7 % (11.6-14.8) H Platelet Count 262 K/UL (150-450) 240 K/UL (150-450) Mean Platelet Volume 7.7 FL (6.5-10.1) 7.3 FL (6.5-10.1) Neutrophils (%) (Auto) 81.5 % (45.0-75.0) H 70.5 % (45.0-75.0) Lymphocytes (%) (Auto) 10.4 % (20.0-45.0) L 16.6 % (20.0-45.0) L Monocytes (%) (Auto) 7.0 % (1.0-10.0) 11.5 % (1.0-10.0) H Eosinophils (%) (Auto) 0.1 % (0.0-3.0) 0.9 % (0.0-3.0) Basophils (%) (Auto) 1.0 % (0.0-2.0) 0.5 % (0.0-2.0) Prothrombin Time 9.6 SEC (9.30-11.50) Prothromb Time International Ratio 0.9 (0.9-1.1) Activated Partial Thromboplast Time 21 SEC (23-33) L Sodium Level 135 mEQ/L (135-145) 140 mEQ/L (135-145) Potassium Level 5.6 mEQ/L (3.4-4.9) H 3.8 mEQ/L (3.4-4.9) Chloride Level 91 mEQ/L (98-107) L 100 mEQ/L (98-107) Carbon Dioxide Level 33 mEQ/L (20-30) H 31 mEQ/L (20-30) H Anion Gap 11 (5-15) 9 (5-15) Blood Urea Nitrogen 21 mg/dL (7-23) 15 mg/dL (7-23) Creatinine 0.7 mg/dL (0.7-1.2) 0.5 mg/dL (0.7-1.2) L Estimat Glomerular Filtration Rate mL/min (>60) mL/min (>60) Glucose Level 105 mg/dL (74-106) 94 mg/dL (74-106) Hemoglobin A1c 5.9 % (< 6.0) Lactic Acid Level 2.00 mmol/L (0.66-2.22) 1.90 mmol/L (0.66-2.22) Calcium Level 9.6 mg/dL (8.6-10.2) 9.1 mg/dL (8.6-10.2) Total Bilirubin 0.2 mg/dL (0.0-1.2) 0.3 mg/dL (0.0-1.2) Aspartate Amino Transf (AST/SGOT) 34 U/L (5-40) 14 U/L (5-40) Alanine Aminotransferase (ALT/SGPT) 10 U/L (3-41) 6 U/L (3-41) Alkaline Phosphatase 136 U/L (40-129) H 100 U/L (40-129) Total Creatine Kinase 88 U/L (38-174) Creatine Kinase MB < 1.5 ng/mL (< 6.7) Creatine Kinase MB Relative Index 1.7 Troponin I < 0.30 ng/mL (<=0.30) Total Protein 8.8 g/dL (6.6-8.7) H 7.1 g/dL (6.6-8.7) Albumin 2.9 g/dL (3.5-5.2) L 2.5 g/dL (3.5-5.2) L Globulin 5.9 g/dL Albumin/Globulin Ratio 0.4 (1.0-2.7) L Lipase 16 U/L (< 60) Valproic Acid (Depakene) Level 39 ug/mL (50-100) L Urine Color Yellow Urine Appearance Slightly cloudy Urine pH 8 (4.5-8.0) Urine Specific [place] 1.010 (1.005-1.035) Urine Protein 3+ (NEGATIVE) H Urine Glucose (UA) Negative (NEGATIVE) Urine Ketones Negative (NEGATIVE) Urine Occult Blood 5+ (NEGATIVE) H Urine Nitrite Negative (NEGATIVE) Urine Bilirubin Negative (NEGATIVE) Urine Urobilinogen Normal MG/DL (0.0-1.0) Urine Leukocyte Esterase 3+ (NEGATIVE) H Urine RBC 40-60 /HPF (0 - 0) H Urine WBC 20-30 /HPF (0 - 0) H Urine Squamous Epithelial Cells Occasional /LPF Urine Bacteria Many /HPF (NONE) H Urine Mucus Few /LPF (NONE/OCC) H Magnesium Level 1.9 mg/dL (1.7-2.5) Direct Bilirubin 0.1 mg/dL (0.1-0.3) Pro-B-Type Natriuretic Peptide 796 pg/mL (0-450) H Microbiology Date/Time Source Procedure Growth Status 01/02/17 13:10 Urine,Clean Catch Urine Culture - Preliminary Gram Negative Sunday Resulted Height (Feet): 5 Height (Inches): 8.00 Weight (Pounds): 180 Medications Current Medications Medications (Trade) Dose Ordered Sig/Dorie Route PRN Reason Start Time Stop Time Status Last Admin Dose Admin Acetaminophen (Tylenol) 650 mg Q4H PRN ORAL Mild Pain (Pain Scale 1-3) 01/02/17 16:15 02/01/17 16:14 Albuterol/ Ipratropium (DuoNeb 0.5-3(2.5)mg/3ml) 3 ml Q4H PRN HHN Shortness of Breath 01/02/17 16:15 01/07/17 16:14 Bisacodyl (Dulcolax) 10 mg DAILYPRN PRN RECTAL Constipation 01/02/17 16:15 02/01/17 16:14 Dextrose (Dextrose 50%) STAT PRN IV Hypoglycemia 01/02/17 16:15 02/01/17 16:14 Dextrose/Sodium Chloride 1,000 ml @ 100 mls/hr Q10H IV 01/02/17 17:00 02/01/17 16:59 01/03/17 02:51 Docusate Sodium (Colace) 100 mg EVERY 12 HOURS ORAL 01/03/17 09:00 02/02/17 08:59 01/03/17 09:01 Heparin Sodium (Porcine) (Heparin 5000 units/ml) 5,000 units EVERY 12 HOURS SUBQ 01/02/17 21:00 02/01/17 20:59 01/03/17 09:03 Insulin Aspart (NovoLOG) Q6HR SUBQ 01/03/17 00:00 02/01/17 20:59 Ipratropium [place] (Atrovent) 500 mcg Q6HRT HHN 01/02/17 17:00 01/07/17 16:59 01/03/17 06:58 Lacosamide (Vimpat) 100 mg EVERY 12 HOURS ORAL 01/02/17 21:00 02/01/17 20:59 01/03/17 09:00 Levetiracetam (Keppra) 1,500 mg BID GT 01/02/17 18:00 02/01/17 17:59 01/03/17 09:01 Magnesium Hydroxide (Mom) 30 ml HSPRN PRN ORAL Constipation 01/02/17 16:15 02/01/17 16:14 Ondansetron HCl (Zofran) 4 mg Q6H PRN IVP Nausea & Vomiting 01/02/17 16:15 02/01/17 16:14 Pantoprazole (Protonix) 40 mg DAILY ORAL 01/03/17 09:00 02/02/17 08:59 01/03/17 09:00 Piperacillin Sod/ Tazobactam Sod 3.375 gm/Dextrose 110 ml @ 27.5 mls/hr Q8HR IVPB 01/02/17 22:00 01/09/17 21:59 01/03/17 05:58 Polyethylene Glycol (Miralax) 17 gm DAILYPRN PRN GT Constipation 01/02/17 17:00 02/01/17 16:59 Valproic Acid (Depakene) 500 mg Q8HR GT 01/02/17 22:00 02/01/17 21:59 01/03/17 05:57 Vancomycin HCl (Vanco rx to dose) 1 ea DAILY PRN MISC Per rx protocol 01/02/17 16:15 02/01/17 16:14 Vancomycin HCl/ Dextrose 250 ml @ 166.667 mls/hr Q24H IVPB 01/03/17 12:00 01/08/17 11:59 Assessment/Plan Problem List: (1) Respiratory failure ICD Codes: J96.90 - Respiratory failure, unspecified, unspecified whether with hypoxia or hypercapnia SNOMED: 065984476 (2) Severe sepsis ICD Codes: A41.9 - Sepsis, unspecified organism; R65.20 - Severe sepsis without septic shock SNOMED: 82890958 (3) Coffee ground emesis ICD Codes: K92.0 - Hematemesis SNOMED: 997854779, 05290857 (4) Tracheostomy care ICD Codes: Z43.0 - Encounter for attention to tracheostomy SNOMED: 404583908 (5) Alzheimer's dementia ICD Codes: G30.9 - Alzheimer's disease, unspecified SNOMED: 02625569 (6) G tube feedings ICD Codes: Z93.1 - Gastrostomy status SNOMED: 593651956, 516615927 (7) UTI (urinary tract infection) ICD Codes: N39.0 - Urinary tract infection, site not specified SNOMED: 58362461 Respiratory: monitor respiratory rate, adjust FIO2 Cardiac: continue to monitor HR/BP Renal: F/U I&O, keep IV fluid, other - d5 ns 100 cc/hour Infectious Disease: check cultures, continue antibiotics Gastrointestinal: hold feedings, abdominal imaging, other - EGD tomorrow Endocrine: monitor blood sugar Hematologic: monitor H/H Neurologic: PRN Ativan Affect: PRN ativan Time Spent (Minutes): 40 Notes Reviewed: cardio, renal Discussed with: nurses, consultants BAM SCHAEFFER Jan 03, 2017 10:59
--- NOTE | 2017-01-03 11:06 | Diagnostic Imaging Report ---
Indication: Dyspnea Comparison: None A single view chest radiograph was obtained. Findings: Tracheostomy noted. There is basilar atelectasis with several linear reticular densities noted at the lower lung sánchez. Lung volumes are slightly low. Heart is prominent in size. Bones are osteopenic. Impression: Basilar atelectasis. Doubt CHF/interstitial edema. Followup recommended.
[2017-01-03 11:58] VITALS: BP 128/66
[2017-01-03] MEDS ORDERED: Vancomycin 1250mg/D5W 250ml IVPB SCH (12:00)
[2017-01-03 16:00] VITALS: BP 132/66
--- NOTE | 2017-01-03 16:33 | Infectious Diseases Prog Note ---
Assessment/Plan Assessment/Plan Full consult dictated: A) 1) sepsis, gram neg uti/pyelonephritis, fever, leukocytosis 2) pmh noted 3) allergies - nkda P) 1) zosyn, discontinue vancomycin 2) check cultures and f/u labs 3) orders entered and noted 4) continue per Dr. Robles and consultants 4) wound care per protocol - doubt sepsis source Subjective Allergies: Coded Allergies: No Known Allergies (Unverified , 01/02/17) Objective Vital Signs Last 24 Hour Vital Signs Date Time Temp Pulse Resp B/P (MAP) Pulse Ox O2 Delivery O2 Flow Rate FiO2 01/03/17 12:35 75 20 99 Trach Collar 6.0 35 01/03/17 12:30 35 01/03/17 12:30 74 20 99 Trach Collar 6.0 35 01/03/17 12:00 76 01/03/17 12:00 5.0 01/03/17 11:58 97.7 78 20 128/66 100 T-piece 5.0 01/03/17 08:00 74 01/03/17 08:00 97.9 75 20 113/56 100 T-piece 5.0 01/03/17 08:00 5.0 01/03/17 07:01 99 T-piece 6.0 35 01/03/17 07:01 T-piece 6.0 35 01/03/17 06:35 88 20 99 Trach Collar 6.0 35 01/03/17 06:30 89 20 99 Trach Collar 6.0 35 01/03/17 06:30 35 01/03/17 04:00 79 01/03/17 04:00 97.7 80 20 127/58 100 T-piece 5.0 01/03/17 04:00 5.0 01/03/17 01:19 86 20 99 Trach Collar 5.0 30 01/03/17 01:12 55 01/03/17 01:12 70 20 97 Trach Collar 5.0 35 01/03/17 00:00 97.7 96 20 120/60 100 T-piece 5.0 01/03/17 00:00 85 01/02/17 20:00 5.0 01/02/17 20:00 111 01/02/17 20:00 99.0 111 19 126/64 100 T-piece 5.0 01/02/17 19:45 110 20 100 Trach Collar 5.0 35 01/02/17 19:28 55 01/02/17 19:28 104 20 100 Trach Collar 5.0 35 01/02/17 19:27 Trach Collar 5.0 35 01/02/17 19:24 104 20 T-piece 5.0 01/02/17 19:24 104 20 Trach Collar 5.0 35 Height (Feet): 5 Height (Inches): 8.00 Weight (Pounds): 180 Microbiology Date/Time Source Procedure Growth Status 01/02/17 13:10 Urine,Clean Catch Urine Culture - Preliminary Gram Negative Sunday Resulted Laboratory Tests Test 01/03/17 04:15 White Blood Count 11.4 K/UL (4.8-10.8) H Red Blood Count 3.34 M/UL (4.70-6.10) L Hemoglobin 9.5 G/DL (14.2-18.0) L Hematocrit 30.1 % (42.0-52.0) L Mean Corpuscular Volume 90 FL (80-99) Mean Corpuscular Hemoglobin 28.4 PG (27.0-31.0) Mean Corpuscular Hemoglobin Concent 31.5 G/DL (32.0-36.0) L Red Cell Distribution Width 15.7 % (11.6-14.8) H Platelet Count 240 K/UL (150-450) Mean Platelet Volume 7.3 FL (6.5-10.1) Neutrophils (%) (Auto) 70.5 % (45.0-75.0) Lymphocytes (%) (Auto) 16.6 % (20.0-45.0) L Monocytes (%) (Auto) 11.5 % (1.0-10.0) H Eosinophils (%) (Auto) 0.9 % (0.0-3.0) Basophils (%) (Auto) 0.5 % (0.0-2.0) Sodium Level 140 mEQ/L (135-145) Potassium Level 3.8 mEQ/L (3.4-4.9) Chloride Level 100 mEQ/L (98-107) Carbon Dioxide Level 31 mEQ/L (20-30) H Anion Gap 9 (5-15) Blood Urea Nitrogen 15 mg/dL (7-23) Creatinine 0.5 mg/dL (0.7-1.2) L Estimat Glomerular Filtration Rate mL/min (>60) Glucose Level 94 mg/dL (74-106) Calcium Level 9.1 mg/dL (8.6-10.2) Magnesium Level 1.9 mg/dL (1.7-2.5) Total Bilirubin 0.3 mg/dL (0.0-1.2) Direct Bilirubin 0.1 mg/dL (0.1-0.3) Aspartate Amino Transf (AST/SGOT) 14 U/L (5-40) Alanine Aminotransferase (ALT/SGPT) 6 U/L (3-41) Alkaline Phosphatase 100 U/L (40-129) Pro-B-Type Natriuretic Peptide 796 pg/mL (0-450) H Total Protein 7.1 g/dL (6.6-8.7) Albumin 2.5 g/dL (3.5-5.2) L Current Medications Medications (Trade) Dose Ordered Sig/Dorie Route PRN Reason Start Time Stop Time Status Last Admin Dose Admin Acetaminophen (Tylenol) 650 mg Q4H PRN ORAL Mild Pain (Pain Scale 1-3) 01/02/17 16:15 02/01/17 16:14 Albuterol/ Ipratropium (DuoNeb 0.5-3(2.5)mg/3ml) 3 ml Q4H PRN HHN Shortness of Breath 01/02/17 16:15 01/07/17 16:14 Bisacodyl (Dulcolax) 10 mg DAILYPRN PRN RECTAL Constipation 01/02/17 16:15 02/01/17 16:14 Dextrose (Dextrose 50%) STAT PRN IV Hypoglycemia 01/02/17 16:15 02/01/17 16:14 Dextrose/Sodium Chloride 1,000 ml @ 100 mls/hr Q10H IV 01/02/17 17:00 02/01/17 16:59 01/03/17 13:44 Docusate Sodium (Colace) 100 mg EVERY 12 HOURS ORAL 01/03/17 09:00 02/02/17 08:59 01/03/17 09:01 Heparin Sodium (Porcine) (Heparin 5000 units/ml) 5,000 units EVERY 12 HOURS SUBQ 01/02/17 21:00 02/01/17 20:59 01/03/17 09:03 Insulin Aspart (NovoLOG) Q6HR SUBQ 01/03/17 00:00 02/01/17 20:59 01/03/17 11:47 Ipratropium [place] (Atrovent) 500 mcg Q6HRT HHN 01/02/17 17:00 01/07/17 16:59 01/03/17 12:42 Lacosamide (Vimpat) 100 mg EVERY 12 HOURS ORAL 01/02/17 21:00 02/01/17 20:59 01/03/17 09:00 Levetiracetam (Keppra) 1,500 mg BID GT 01/02/17 18:00 02/01/17 17:59 01/03/17 09:01 Magnesium Hydroxide (Mom) 30 ml HSPRN PRN ORAL Constipation 01/02/17 16:15 02/01/17 16:14 Ondansetron HCl (Zofran) 4 mg Q6H PRN IVP Nausea & Vomiting 01/02/17 16:15 02/01/17 16:14 Pantoprazole (Protonix) 40 mg DAILY ORAL 01/03/17 09:00 02/02/17 08:59 01/03/17 09:00 Piperacillin Sod/ Tazobactam Sod 3.375 gm/Dextrose 110 ml @ 27.5 mls/hr Q8HR IVPB 01/02/17 22:00 01/09/17 21:59 01/03/17 13:44 Polyethylene Glycol (Miralax) 17 gm DAILYPRN PRN GT Constipation 01/02/17 17:00 02/01/17 16:59 Valproic Acid (Depakene) 500 mg Q8HR GT 01/02/17 22:00 02/01/17 21:59 01/03/17 13:43 Vancomycin HCl (Vanco rx to dose) 1 ea DAILY PRN MISC Per rx protocol 01/02/17 16:15 02/01/17 16:14 Vancomycin HCl/ Dextrose 250 ml @ 166.667 mls/hr Q24H IVPB 01/03/17 12:00 01/08/17 11:59 01/03/17 11:10 JENNIFER BEVERLY Jan 03, 2017 16:33
--- NOTE | 2017-01-03 17:45 | Consultation ---
DATE OF CONSULTATION: 01/03/2017 GASTROENTEROLOGY CONSULTATION CHIEF COMPLAINT: Coffee-ground emesis. History Of Present Illness: Most of the history is per chart. The patient has a history of chronic respiratory failure with trach, chronic dysphagia requiring G-tube, and nonverbal. In halfway, the patient had episode of coffee-grounds emesis and was transferred to hospital. PAST MEDICAL HISTORY: 1. Prior respiratory failure, now only on trach collar. 2. Dysphagia requiring G-tube placement. 3. Severe decubital ulcerations. 4. Diabetes. 5. Constipation. PAST SURGICAL HISTORY: Tracheostomy. MEDICATIONS: Please see medication reconciliation list. ALLERGIES: No known drug allergies. Social History: Currently lives in a halfway. No known prior history of alcohol or drug abuse. FAMILY HISTORY: Noncontributory. REVIEW OF SYSTEMS: Unable to obtain. PHYSICAL EXAMINATION: Vital Signs: Temperature 97.9 degrees, pulse 75, respirations 20, and blood pressure 113/56. HEENT: Normocephalic and atraumatic. Sclerae anicteric. NECK: Supple. No lymphadenopathy. CARDIOVASCULAR: Regular rhythm. Plus S1 and S2. LUNGS: Decreased breath sounds bilaterally based on the supine exam. Abdomen: Soft and nontender. G-tube in place. No rebound. No guarding. No peritoneal sign. EXTREMITIES: No cyanosis, no clubbing, no edema. Laboratory Data: Laboratories showed white count 7.4, hemoglobin 9.5, hematocrit 30, and platelet count is 240,000. Assessment: This is an 81-year-old male with significant medical problems as dictated above, came in with coffee-ground emesis and anemia. Plan: Keep the patient NPO. Continue on Protonix. Plan to do an endoscopy tomorrow for evaluation of upper gastrointestinal bleeding. I want to thank, Dr. Lima, for this kind referral. Chandrakant Tony M.D. DR: ANGEL JOB#: [id number] CC: Guy Lima M.D.; Fax#: [phone]
[2017-01-03 20:00] VITALS: BP 144/78
--- NOTE | 2017-01-03 21:43 | General Progress Note ---
Assessment/Plan Problem List: (1) Decubitus ulcer of sacral region, stage 4 ICD Codes: L89.154 - Pressure ulcer of sacral region, stage 4 SNOMED: 364976445, 883703252 (2) Severe sepsis ICD Codes: A41.9 - Sepsis, unspecified organism; R65.20 - Severe sepsis without septic shock SNOMED: 10001681 (3) UTI (urinary tract infection) ICD Codes: N39.0 - Urinary tract infection, site not specified SNOMED: 90971809 (4) Coffee ground emesis ICD Codes: K92.0 - Hematemesis SNOMED: 756046336, 69389774 (5) Acute blood loss anemia ICD Codes: D62 - Acute posthemorrhagic anemia SNOMED: 428018323 (6) Advanced dementia ICD Codes: F03.90 - Unspecified dementia without behavioral disturbance SNOMED: 57631358 (7) Tracheostomy in place ICD Codes: Z93.0 - Tracheostomy status SNOMED: 476873865 (8) S/P percutaneous endoscopic gastrostomy (PEG) tube placement ICD Codes: Z93.1 - Gastrostomy status SNOMED: 514560757 (9) Hyperkalemia ICD Codes: E87.5 - Hyperkalemia SNOMED: 60216767 (10) HTN (hypertension) ICD Codes: I10 - Essential (primary) hypertension SNOMED: 27116719 (11) Seizure disorder ICD Codes: G40.909 - Epilepsy, unspecified, not intractable, without status epilepticus SNOMED: 904805753 (12) Diabetes mellitus ICD Codes: E11.9 - Type 2 diabetes mellitus without complications SNOMED: 59478068 (13) Functional quadriplegia ICD Codes: R53.2 - Functional quadriplegia SNOMED: 911367741666202 Status: stable Assessment/Plan GI, Pulm and ID consulted D/c vanco (01/02-01/03) Cont zosyn (01/02-) F/u urine and blood cultures IVFs PPI Monitor lytes closely Type and screen Trend CBC, transfuse for hgb<7.5 or active bleeding NPO, hold tube feeds for now Possible plan for EGD tomorrow Trach and PEG care Wound care consult Supportive care DVT Prophylaxis: SCD Code Status: Full Hospital Classification Declaration: Based on this initial evaluation, and depending on the patient's clinical course, I anticipate that this patient will require hospitalization for 2-3 days for severe sepsis and close respiratory/ hemodynamic monitoring. Disposition: Once the patient is stable to leave the hospital, I anticipate the patient will likely be discharged to the following environment: back to SNF I spent 42 minutes on this patient's case, and 22 minutes were dedicated to counseling and/or care coordination. Discussed with patient/family, nursing staff, SW/CM, pulm, ID, GI regarding clinical status, treatment course, and disposition planning. Time of note may not reflect time of encounter. Subjective Date patient seen: Jan 03, 2017 Time patient seen: 14:20 ROS Limited/Unobtainable: Yes Allergies: Coded Allergies: No Known Allergies (Unverified , 01/02/17) Subjective No acute o/n events HR improved WBC down to 11K No fevers this AM Urine cx w/ >100K GNR Pt non-verbal, bed-bound at baseline. Poorly responsive at baseline Unable to obtain ROS given dementia, non-verbal Objective Last 24 Hour Vital Signs Date Time Temp Pulse Resp B/P (MAP) Pulse Ox O2 Delivery O2 Flow Rate FiO2 01/03/17 20:00 91 01/03/17 20:00 5.0 01/03/17 19:20 102 20 98 T-piece 8.0 30 01/03/17 19:19 30 01/03/17 19:18 100 20 96 T-piece 8.0 30 01/03/17 19:18 T-piece 8.0 30 01/03/17 19:17 97 T-piece 8.0 30 01/03/17 16:00 5.0 01/03/17 16:00 78 01/03/17 16:00 97.7 81 20 132/66 100 T-piece 5.0 01/03/17 12:35 75 20 99 Trach Collar 6.0 35 01/03/17 12:30 35 01/03/17 12:30 74 20 99 Trach Collar 6.0 35 01/03/17 12:00 76 01/03/17 12:00 5.0 01/03/17 11:58 97.7 78 20 128/66 100 T-piece 5.0 01/03/17 08:00 74 01/03/17 08:00 97.9 75 20 113/56 100 T-piece 5.0 01/03/17 08:00 5.0 01/03/17 07:01 99 T-piece 6.0 35 01/03/17 07:01 T-piece 6.0 35 01/03/17 06:35 88 20 99 Trach Collar 6.0 35 01/03/17 06:30 89 20 99 Trach Collar 6.0 35 01/03/17 06:30 35 01/03/17 04:00 79 01/03/17 04:00 97.7 80 20 127/58 100 T-piece 5.0 01/03/17 04:00 5.0 01/03/17 01:19 86 20 99 Trach Collar 5.0 30 01/03/17 01:12 55 01/03/17 01:12 70 20 97 Trach Collar 5.0 35 01/03/17 00:00 97.7 96 20 120/60 100 T-piece 5.0 01/03/17 00:00 85 Intake and Output 01/03/17 01/04/17 19:00 07:00 Intake Total 1142.500 ml Output Total 500 ml Balance 642.500 ml Intake Free Water 100 ml IV Total 1042.500 ml Output Urine Total 500 ml Laboratory Tests 01/03/17 04:15: White Blood Count 11.4H, Red Blood Count 3.34L, Hemoglobin 9.5L, Hematocrit 30.1L, Mean Corpuscular Volume 90, Mean Corpuscular Hemoglobin 28.4, Mean Corpuscular Hemoglobin Concent 31.5L, Red Cell Distribution Width 15.7H, Platelet Count 240, Mean Platelet Volume 7.3, Neutrophils (%) (Auto) 70.5, Lymphocytes (%) (Auto) 16.6L, Monocytes (%) (Auto) 11.5H, Eosinophils (%) (Auto ) 0.9, Basophils (%) (Auto) 0.5, Sodium Level 140, Potassium Level 3.8, Chloride Level 100, Carbon Dioxide Level 31H, Anion Gap 9, Blood Urea Nitrogen 15, Creatinine 0.5L, Estimat Glomerular Filtration Rate , Glucose Level 94, Calcium Level 9.1, Magnesium Level 1.9, Total Bilirubin 0.3, Direct Bilirubin 0.1, Aspartate Amino Transf (AST/SGOT) 14, Alanine Aminotransferase (ALT/SGPT) 6 , Alkaline Phosphatase 100, Pro-B-Type Natriuretic Peptide 796H, Total Protein 7.1, Albumin 2.5L Height (Feet): 5 Height (Inches): 8.00 Weight (Pounds): 180 Objective General: Non-verbal, unresponsive to voice or pain, +trach Head: normocephalic, without obvious abnormality, atraumatic Eyes: conjunctivae/corneas clear. PERRL Throat: lips, mucosa, and tongue normal. MMM Neck: supple, symmetrical, trachea midline, and no JVD Lungs: clear to auscultation bilaterally Heart: regular rate and rhythm, S1, S2 normal, no murmur, click, rub or gallop Abdomen: soft, non-tender, non-distended, bowel sounds normal; +PEG Extremities: extremities normal, atraumatic, no cyanosis or edema Pulses: 2+ and symmetric Skin: skin color, texture, turgor normal; no rashes or lesions Neurologic: grossly normal, no focal deficits General: Non-verbal, unresponsive to voice or pain, +trach Head: normocephalic, without obvious abnormality, atraumatic Eyes: conjunctivae/corneas clear. PERRL Throat: lips, mucosa, and tongue normal. MMM Neck: supple, symmetrical, trachea midline, and no JVD Lungs: clear to auscultation bilaterally Heart: regular rate and rhythm, S1, S2 normal, no murmur, click, rub or gallop Abdomen: soft, non-tender, non-distended, bowel sounds normal; +PEG Extremities: extremities normal, atraumatic, no cyanosis or edema Pulses: 2+ and symmetric Skin: skin color, texture, turgor normal; no rashes or lesions Neurologic: grossly normal, no focal deficits Travis Hinojosa M.D. Jan 03, 2017 21:43
[2017-01-04] VITALS: BP 133/77
[2017-01-04] MEDS ORDERED: Metoprolol 5mg/5ml Inj IVP SCH (01:00)
[2017-01-04] MEDS: Ipratropium 0.02% Inh Soln 2.5ml UD HHN SCH ×4 (01:00→19:21)
[2017-01-04] MEDS: D5NS 1,000 ML IV SCH (03:56)
[2017-01-04 04:00] VITALS: BP 123/84
[2017-01-04 04:47] LABS: BASOPHILS % (AUTO) 0.9 % (0.0-2.0); EOSINOPHILS % (AUTO) 1.8 % (0.0-3.0); LYMPHOCYTES % (AUTO) 20.2 % (20.0-45.0); MEAN CORPUSCULAR HEMOGLOBIN 27.8 PG (27.0-31.0); MEAN CORPUSCULAR HGB CONC 31.2 G/DL (32.0-36.0); MEAN CORPUSCULAR VOLUME 89 FL (80-99); MEAN PLATELET VOLUME 7.5 FL (6.5-10.1); MONOCYTES % (AUTO) 11.4 % (1.0-10.0); NEUTROPHILS % (AUTO) 65.7 % (45.0-75.0); PLATELET COUNT 208 K/UL (150-450); RED BLOOD COUNT 3.35 M/UL (4.70-6.10); RED CELL DISTRIBUTION WIDTH 15.5 % (11.6-14.8); WHITE BLOOD COUNT 8.4 K/UL (4.8-10.8)
[2017-01-04 04:56] LABS: PROTHROMBIN TIME 10.7 SEC (9.30-11.50)
[2017-01-04 05:07] LABS: ALANINE AMINOTRANSFERASE 6 U/L (3-41); ALBUMIN/GLOBULIN RATIO 0.4 (1.0-2.7); ANION GAP 7 (5-15); ASPARTATE AMINO TRANSFERASE 14 U/L (5-40); CALCIUM 10.3 mg/dL (8.6-10.2); CARBON DIOXIDE 31 mEQ/L (20-30); CHLORIDE 100 mEQ/L (98-107); CREATININE 0.4 mg/dL (0.7-1.2); LACTATE DEHYDROGENASE 220 U/L (135-230); MAGNESIUM 1.8 mg/dL (1.7-2.5); PHOSPHORUS 2.7 mg/dL (2.5-4.8); POTASSIUM 3.4 mEQ/L (3.4-4.9); SODIUM 138 mEQ/L (135-145); TOTAL PROTEIN 6.9 g/dL (6.6-8.7)
[2017-01-04 05:41] LABS: HEMOLYSIS 8; IRON 29 ug/dL (59-158); TOTAL IRON BINDING CAPACITY 190 ug/dL (250-400)
[2017-01-04] MEDS: Valproic Acid 250mg/5ml Liquid GT SCH ×3 (05:46→21:04)
[2017-01-04] MEDS: Piperacillin/Tazobactam 3.375 GM in D5W 110 ML IVPB SCH ×3 (05:47→21:05)
[2017-01-04] MEDS: NovoLOG Insulin Flexpen SUBQ SCH ×4 (05:48→17:13)
[2017-01-04 06:04] LABS: ERYTHROCYTE SEDIMENTATION RATE 105 MM/HR (0-30)
[2017-01-04 06:06] LABS: RETICULOCYTE COUNT 2.5 % (0.0-2.0)
[2017-01-04 06:07] LABS: PATH BLOOD SMEAR/OMC SENT TO PATHOLOGIST
[2017-01-04 08:00] VITALS: BP 121/75
[2017-01-04] MEDS: levETIRAcetam 500mg/5ml Liquid GT SCH ×2 (08:43→17:10)
[2017-01-04] MEDS: Docusate 100mg cap ORAL SCH ×2 (08:43→21:03)
[2017-01-04] MEDS: Lacosamide 100 MG TABLET ORAL SCH ×2 (08:43→21:03)
[2017-01-04] MEDS: Heparin 5000 units/ml inj SUBQ SCH ×2 (08:47→21:06)
--- NOTE | 2017-01-04 09:30 | Consultation ---
DATE OF CONSULTATION: 01/03/2017 INFECTIOUS DISEASES CONSULTATION CONSULTING PHYSICIAN: Bear Ocampo M.D. ATTENDING PHYSICIAN: Guy Lima M.D. I was asked by Dr. Robles to see this patient. Reason For Consultation: Gram-negative UTI, pyelonephritis, and sepsis. Chief Complaint: The patient's chief complaint coming to the hospital is sepsis and coffee-ground emesis. History Of Present Illness: This is an 81-year-old male with tracheostomy. He is clearly not on a vent. He does have a Crump. He presents to [facility] with fevers and leukocytosis likely septic. Workup shows that he has Gram-negative UTI/pyelonephritis and sepsis. Infectious Diseases consultation is requested for antibiotic management. Chest x-ray shows CHF and interstitial edema, no consolidation mentioned, it does show atelectasis also. The patient is on Zosyn and vancomycin. The patient's vancomycin will be discontinued. Final cultures are pending. MAR was noted. Orders noted. Notes and records were reviewed. The patient did come in with coffee-ground emesis also. Past Medical History: The patient's past medical history includes history of following: The patient has a past medical history of trach, no vent. Currently, he has history of respiratory failure. He has a history of being bedbound. He has history of diabetes, history of pressure ulcers, trach, respiratory failure, and history of congestion. He came in with coffee-ground emesis. History of PEG, Alzheimer's, G-tube, dysphagia, and diabetes. He is anemic also. Please see past medical history in medical order. Medications: Upon reviewing the MAR, he is on the following medications. He is on vancomycin, which I have discontinued. He is on Protonix. He is on Colace, NovoLog insulin, Zosyn, piperacillin and tazobactam, Depakene, heparin, Lacosamide, Keppra, MiraLAX, Atrovent, breathing treatments including DuoNeb, Tylenol, bisacodyl, Zofran, vancomycin and Zosyn antibiotics. ALLERGIES: No known drug allergies. No antibiotic allergies. Family History: Per the records. No mention of exposure to tuberculosis or cancer. Social History: Per the records, no mention of smoking, alcohol, or drug abuse. Review Of Systems: General: He has generalized weakness. Opens eyes. He has a trach, but no vent. Head And Neck: He has trach. Cardiac: No pressors. Gastrointestinal: No nausea, vomiting, or diarrhea. Also, he came in with coffee-ground emesis. Genitourinary: He has a Crump. Pulmonary: Mild congestion noted. Skin: No rash. He has wounds that are covered. Neurologic: No seizures. He has generalized weakness and fatigue. Overall, poorly responsive. PHYSICAL EXAMINATION: Vital Signs: Temperature on admission was 101.9, currently temperature is 97.7 degrees, pulse rate is 75, respiratory rate 20, and saturation 99%. He is on trach collar with FiO2 35%. His heart rate has been as high as 131 on admission. General: Opens eyes occasionally, but overall lethargic, poorly responsive. HEENT: Oral exam, no thrush. He has trach intact. Trach collar. No vent. Normocephalic. Eye exam, no icterus. NECK: Supple. HEART: Regular. No gallop or murmur. Lungs: Few bilateral rhonchi. Decreased breath sounds and crackles. No definite rales. ABDOMEN: Soft. Positive bowel sounds. SKIN: No rash or dermatitis. MUSCULOSKELETAL: No effusion or contractures. EXTREMITIES: Legs are without cellulitis. PERIPHERAL VASCULAR: No cyanosis or gangrene. GENITOURINARY: He has a Crump. LINES: Line sites without phlebitis. NEUROLOGIC: Responsive. Opens eyes with generalized weakness noted. Skin: Multiple wounds reviewed and did not look acutely infected to me. Laboratory And Diagnostic Data: Laboratory data is as follows, white count is 11.4 and hemoglobin 9.5. White count initially is 15.5. Creatinine 0.5. Cultures grew. Urine culture growing greater than 100,000 gram-negative rods. Identification is pending. Urinalysis had 3+ leukocyte esterase, 23 white blood cells, and many bacteria. Imaging Studies: Chest x-ray shows there is no obvious consolidation, but does show atelectasis. ASSESSMENT AND PLAN: 1. The patient has likely severe sepsis with fevers, leukocytosis, and altered mental status. The patient has a Gram-negative urinary tract infection plus pyelonephritis with sepsis syndrome. Continue Zosyn for Gram-negative coverage. I will discontinue vancomycin. Chest x-ray shows no obvious pneumonia or consolidation. Continue Zosyn. Check urine culture and labs. 2. Wound care protocol. I do not think wounds are clearly infected. 3. Anemia. 4. Tracheostomy, no ventilator and history of respiratory failure. 5. Dysphagia and gastrostomy tube. 6. Diabetes. 7. History of pressure ulcers. Wound care protocol. 8. History of Alzheimer's. 9. Dementia. 10. Poor historian. 11. Chronic respiratory failure. 12. Bedbound. 13. Weakness. 14. Coffee-ground emesis, treatment per primary consultants. 15. Allergies are negative. 16. MAR was noted. 17. Case was discussed with RN. 18. Family history is noncontributory. 19. Notes are reviewed. 20. MAR was noted. 21. Continue treatment per primary consultants. 22. skin care per protocol - doubt wounds septic source 23. Notes and records were reviewed. I was asked by Dr. Robles to see this patient in Infectious Diseases consult. Bear Ocampo M.D. DR: LAURA JOB#: [id number] CC: QUINTON
--- NOTE | 2017-01-04 11:01 | Pulmonology Progress Note ---
Assessment/Plan Problems: (1) Respiratory failure (2) Severe sepsis (3) Coffee ground emesis (4) Tracheostomy care (5) Alzheimer's dementia (6) G tube feedings (7) UTI (urinary tract infection) Respiratory: monitor respiratory rate, adjust FIO2, CXR Cardiac: continue to monitor HR/BP Renal: F/U I&O, keep IV fluid Infectious Disease: check cultures Gastrointestinal: continue feedings/current rate, adjust feedings, start feedings Endocrine: monitor blood sugar, check HgA1C, continue sliding scale insulin Hematologic: monitor H/H, transfuse if hgb<8.5 Neurologic: PRN Ativan, keep patient comfortable Affect: PRN ativan Notes Reviewed: hydrometallurgical engineer, renal Discussed with: nurses, consultants, watch case polisher Subjective ROS Limited/Unobtainable: Yes Constitutional: Reports: no symptoms HEENT: Repors: no symptoms Allergies: Coded Allergies: No Known Allergies (Unverified , 01/02/17) Objective Last 24 Hour Vital Signs Date Time Temp Pulse Resp B/P (MAP) Pulse Ox O2 Delivery O2 Flow Rate FiO2 01/04/17 08:00 28 01/04/17 08:00 92 01/04/17 08:00 98.7 98 20 121/75 100 T-piece 01/04/17 07:33 81 20 100 Trach Collar 6.0 01/04/17 07:31 T-piece 6.0 01/04/17 07:24 28 01/04/17 07:24 80 20 98 Trach Collar 6.0 01/04/17 07:20 99 T-piece 6.0 01/04/17 04:00 30 01/04/17 04:00 97.5 96 20 123/84 100 T-piece 01/04/17 04:00 105 01/04/17 01:36 T-piece 8.0 01/04/17 01:34 T-piece 8.0 01/04/17 01:30 99 T-piece 6.0 01/04/17 01:30 T-piece 6.0 01/04/17 01:10 140 133/77 01/04/17 00:00 30 01/04/17 00:00 97.5 130 20 133/77 100 T-piece 01/04/17 00:00 130 01/03/17 20:00 91 9/17/17 20:00 97.5 96 20 144/78 99 T-piece 5.0 30 01/03/17 20:00 5.0 01/03/17 19:20 102 20 98 T-piece 8.0 30 01/03/17 19:19 30 01/03/17 19:18 100 20 96 T-piece 8.0 30 01/03/17 19:18 T-piece 8.0 30 01/03/17 19:17 97 T-piece 8.0 30 01/03/17 16:00 5.0 01/03/17 16:00 78 01/03/17 16:00 97.7 81 20 132/66 100 T-piece 5.0 01/03/17 12:35 75 20 99 Trach Collar 6.0 35 01/03/17 12:30 35 01/03/17 12:30 74 20 99 Trach Collar 6.0 35 01/03/17 12:00 76 01/03/17 12:00 5.0 01/03/17 11:58 97.7 78 20 128/66 100 T-piece 5.0 Intake and Output 01/04/17 01/05/17 19:00 07:00 Intake Total 285.0 ml Balance 285.0 ml IV Total 255.0 ml Other 30 ml General Appearance: cachetic HEENT: normocephalic, anicteric Respiratory/Chest: chest wall non-tender, lungs clear Cardiovascular: normal peripheral pulses, normal rate Abdomen: normal bowel sounds, soft, non tender Genitourinary: normal external genitalia Extremities: no cyanosis Neurologic/Psychiatric: speech correction assistant II-XII grossly normal, abnormal gait Lymphatic: no neck adenopathy, no groin adenopathy Microbiology Date/Time Source Procedure Growth Status 01/02/17 13:15 Blood Blood Culture - Preliminary NO GROWTH AFTER 24 HOURS Resulted 01/02/17 13:02 Blood Blood Culture - Preliminary NO GROWTH AFTER 24 HOURS Resulted 01/02/17 17:00 Nasal Nares MRSA Culture - Final NO METHICILLIN RESISTANT STAPH AUREUS... Complete 01/02/17 13:10 Urine,Clean Catch Urine Culture - Final Providencia Stuartii Complete 01/02/17 17:00 Rectum VRE Culture - Final Enterococcus Faecium - Vre Complete Laboratory Tests 01/04/17 03:35: White Blood Count 8.4, Red Blood Count 3.35L, Hemoglobin 9.3L, Hematocrit 29.9L , Mean Corpuscular Volume 89, Mean Corpuscular Hemoglobin 27.8, Mean Corpuscular Hemoglobin Concent 31.2L, Red Cell Distribution Width 15.5H, Platelet Count 208, Mean Platelet Volume 7.5, Neutrophils (%) (Auto) 65.7, Lymphocytes (%) (Auto) 20.2, Monocytes (%) (Auto) 11.4H, Eosinophils (%) (Auto) 1.8, Basophils (%) (Auto) 0.9, Erythrocyte Sedimentation Rate 105H, Reticulocyte Count 2.5H, Prothrombin Time 10.7, Prothromb Time International Ratio 1.0, Activated Partial Thromboplast Time 34H, Sodium Level 138, Potassium Level 3.4, Chloride Level 100, Carbon Dioxide Level 31H, Anion Gap 7, Blood Urea Nitrogen 8, Creatinine 0.4L, Estimat Glomerular Filtration Rate , Glucose Level 137H, Calcium Level 10.3H, Phosphorus Level 2.7, Magnesium Level 1.8, Iron Level 29L, Total Iron Binding Capacity 190L, Percent Iron Saturation 15, Unsaturated Iron Binding 161, Total Bilirubin 0.3, Aspartate Amino Transf (AST/ SGOT) 14, Alanine Aminotransferase (ALT/SGPT) 6, Alkaline Phosphatase 100, Lactate Dehydrogenase 220, Total Protein 6.9, Albumin 2.1L, Globulin 4.8, Albumin/Globulin Ratio 0.4L, Carcinoembryonic Antigen 4.9H, Vitamin B12 Level 1684H, Folate [Pending] Current Medications Medications (Trade) Dose Ordered Sig/Dorie Route PRN Reason Start Time Stop Time Status Last Admin Dose Admin Acetaminophen (Tylenol) 650 mg Q4H PRN ORAL Mild Pain (Pain Scale 1-3) 01/02/17 16:15 02/01/17 16:14 Albuterol/ Ipratropium (DuoNeb 0.5-3(2.5)mg/3ml) 3 ml Q4H PRN HHN Shortness of Breath 01/02/17 16:15 01/07/17 16:14 Bisacodyl (Dulcolax) 10 mg DAILYPRN PRN RECTAL Constipation 01/02/17 16:15 02/01/17 16:14 Dextrose (Dextrose 50%) STAT PRN IV Hypoglycemia 01/02/17 16:15 02/01/17 16:14 Dextrose/Sodium Chloride 1,000 ml @ 100 mls/hr Q10H IV 01/02/17 17:00 02/01/17 16:59 01/04/17 03:56 Docusate Sodium (Colace) 100 mg EVERY 12 HOURS ORAL 01/03/17 09:00 02/02/17 08:59 01/04/17 08:43 Heparin Sodium (Porcine) (Heparin 5000 units/ml) 5,000 units EVERY 12 HOURS SUBQ 01/02/17 21:00 02/01/17 20:59 01/04/17 08:47 Insulin Aspart (NovoLOG) Q6HR SUBQ 01/03/17 00:00 02/01/17 20:59 01/03/17 11:47 Ipratropium [place] (Atrovent) 500 mcg Q6HRT HHN 01/02/17 17:00 01/07/17 16:59 01/04/17 07:27 Lacosamide (Vimpat) 100 mg EVERY 12 HOURS ORAL 01/02/17 21:00 02/01/17 20:59 01/04/17 08:43 Levetiracetam (Keppra) 1,500 mg BID GT 01/02/17 18:00 02/01/17 17:59 01/04/17 08:43 Magnesium Hydroxide (Mom) 30 ml HSPRN PRN ORAL Constipation 01/02/17 16:15 02/01/17 16:14 Metoprolol Tartrate (Lopressor) 5 mg NOW IVP 01/04/17 01:00 02/03/17 00:59 01/04/17 01:10 Ondansetron HCl (Zofran) 4 mg Q6H PRN IVP Nausea & Vomiting 01/02/17 16:15 02/01/17 16:14 Pantoprazole (Protonix) 40 mg DAILY ORAL 01/03/17 09:00 02/02/17 08:59 01/04/17 08:42 Piperacillin Sod/ Tazobactam Sod 3.375 gm/Dextrose 110 ml @ 27.5 mls/hr Q8HR IVPB 01/02/17 22:00 01/09/17 21:59 01/04/17 05:47 Polyethylene Glycol (Miralax) 17 gm DAILYPRN PRN GT Constipation 01/02/17 17:00 02/01/17 16:59 Valproic Acid (Depakene) 500 mg Q8HR GT 01/02/17 22:00 02/01/17 21:59 01/03/17 21:33 BAM SCHAEFFER Jan 04, 2017 11:01
--- NOTE | 2017-01-04 11:04 | Pre-Procedure Note/Attestation ---
Pre-Procedure Note/Attestation Complete Prior to Procedure Planned Procedure: not applicable Procedure Narrative: egd Indications for Procedure Pre-Operative Diagnosis: gib Attestation I attest that I discussed the nature of the procedure; its benefits; risks and complications; and alternatives (and the risks and benefits of such alternatives ), prior to the procedure, with the patient (or the patient's legal access service representative). I attest that, if there was a reasonable possibility of needing a blood transfusion, the patient (or the patient's legal access service representative) was given the [facility] standardized written summary, pursuant to the Andrew Philippe Blood Safety Act ([place] Health and Safety Code # 1645, as amended). I attest that I re-evaluated the patient just prior to the surgery and that there has been no change in the patient's H&P, except as documented below: CHANEL GILBERT Jan 04, 2017 11:04
[2017-01-04] MEDS ORDERED: D5NS 1000ml IV ONE (11:18)
--- NOTE | 2017-01-04 11:54 | Endoscopy Procedure Note ---
Endoscopy Procedure Note Indication for Procedure: anemia, GIB Procedures Performed: EGD Operative Findings/Diagnosis: gastritis Specimen: yes Pt Tolerated Procedure Well: Yes Estimated Blood Loss: none Anesthesiologist: andressa Anesthesia: MAC Implant(s) used?: No 50 yrs or older w/o bx or poly: Not Applicable 10yrs. F/U not recommended: Not Applicable CHANEL GILBERT Jan 04, 2017 11:54
[2017-01-04 12:00] VITALS: BP 112/68
--- NOTE | 2017-01-04 12:08 | Anethesia Preoperative Eval ---
Anesthesia Pre-op PMH/ROS General Date of Evaluation: Jan 04, 2017 Time of Evaluation: 11:35 Anesthesiologist: andressa ASA Score: ASA 4 Mallampati Score Class I : Soft palate, uvula, fauces, pillars visible Class II: Soft palate, uvula, fauces visible Class III: Soft palate, base of uvula visible Class IV: Only hard plate visible Mallampati Classification: Class II Surgeon: ryder Diagnosis: coffee ground emesis Surgical Procedure: egd Anesthesia History: none Social History: smoking - nonsmoker Family History: no anesthesia problems Allergies: Coded Allergies: No Known Allergies (Unverified , 01/02/17) Medications: see eMAR Past Medical History Cardiovascular: Reports: HTN Pulmonary: Reports: other - tracheostomy, respiratory failure Gastrointestinal/Genitourinary: Reports: other - coffee ground emesis Neurologic/Psychiatric: Reports: CVA, other - functional quadriplegia, seizure Endocrine: Reports: DM Hematology/Immune: Reports: anemia Anesthesia Pre-op Phys. Exam Physician Exam Last Vital Signs Date Time Temp Pulse Resp B/P (MAP) Pulse Ox O2 Delivery O2 Flow Rate FiO2 01/04/17 08:00 28 01/04/17 08:00 92 01/04/17 08:00 98.7 20 121/75 100 T-piece 01/04/17 07:33 6.0 Constitutional: NAD Neurologic: other - quadriplegia Respiratory: other - scattered rales Gastrointestinal: S/NT/ND - g-tube Airway Exam Mallampati Score: Class II MO: limited Neck: tracheostomy TMD: 2fb ROM: limited Teeth: missing, broken Anesthesia Pre-op A/P Labs Labs Test 01/02/17 13:00 01/02/17 13:10 01/02/17 14:45 01/03/17 04:15 White Blood Count 15.5 K/UL (4.8-10.8) 11.4 K/UL (4.8-10.8) Red Blood Count 3.58 M/UL (4.70-6.10) 3.34 M/UL (4.70-6.10) Hemoglobin 10.1 G/DL (14.2-18.0) 9.5 G/DL (14.2-18.0) Hematocrit 32.2 % (42.0-52.0) 30.1 % (42.0-52.0) Mean Corpuscular Volume 90 FL (80-99) 90 FL (80-99) Mean Corpuscular Hemoglobin 28.1 PG (27.0-31.0) 28.4 PG (27.0-31.0) Mean Corpuscular Hemoglobin Concent 31.3 G/DL (32.0-36.0) 31.5 G/DL (32.0-36.0) Red Cell Distribution Width 15.7 % (11.6-14.8) 15.7 % (11.6-14.8) Platelet Count 262 K/UL (150-450) 240 K/UL (150-450) Mean Platelet Volume 7.7 FL (6.5-10.1) 7.3 FL (6.5-10.1) Neutrophils (%) (Auto) 81.5 % (45.0-75.0) 70.5 % (45.0-75.0) Lymphocytes (%) (Auto) 10.4 % (20.0-45.0) 16.6 % (20.0-45.0) Monocytes (%) (Auto) 7.0 % (1.0-10.0) 11.5 % (1.0-10.0) Eosinophils (%) (Auto) 0.1 % (0.0-3.0) 0.9 % (0.0-3.0) Basophils (%) (Auto) 1.0 % (0.0-2.0) 0.5 % (0.0-2.0) Prothrombin Time 9.6 SEC (9.30-11.50) Prothromb Time International Ratio 0.9 (0.9-1.1) Activated Partial Thromboplast Time 21 SEC (23-33) Sodium Level 135 mEQ/L (135-145) 140 mEQ/L (135-145) Potassium Level 5.6 mEQ/L (3.4-4.9) 3.8 mEQ/L (3.4-4.9) Chloride Level 91 mEQ/L (98-107) 100 mEQ/L (98-107) Carbon Dioxide Level 33 mEQ/L (20-30) 31 mEQ/L (20-30) Anion Gap 11 (5-15) 9 (5-15) Blood Urea Nitrogen 21 mg/dL (7-23) 15 mg/dL (7-23) Creatinine 0.7 mg/dL (0.7-1.2) 0.5 mg/dL (0.7-1.2) Estimat Glomerular Filtration Rate mL/min (>60) mL/min (>60) Glucose Level 105 mg/dL (74-106) 94 mg/dL (74-106) Hemoglobin A1c 5.9 % (< 6.0) Lactic Acid Level 2.00 mmol/L (0.66-2.22) 1.90 mmol/L (0.66-2.22) Calcium Level 9.6 mg/dL (8.6-10.2) 9.1 mg/dL (8.6-10.2) Total Bilirubin 0.2 mg/dL (0.0-1.2) 0.3 mg/dL (0.0-1.2) Aspartate Amino Transf (AST/SGOT) 34 U/L (5-40) 14 U/L (5-40) Alanine Aminotransferase (ALT/SGPT) 10 U/L (3-41) 6 U/L (3-41) Alkaline Phosphatase 136 U/L (40-129) 100 U/L (40-129) Total Creatine Kinase 88 U/L (38-174) Creatine Kinase MB < 1.5 ng/mL (< 6.7) Creatine Kinase MB Relative Index 1.7 Troponin I < 0.30 ng/mL (<=0.30) Total Protein 8.8 g/dL (6.6-8.7) 7.1 g/dL (6.6-8.7) Albumin 2.9 g/dL (3.5-5.2) 2.5 g/dL (3.5-5.2) Globulin 5.9 g/dL Albumin/Globulin Ratio 0.4 (1.0-2.7) Lipase 16 U/L (< 60) Valproic Acid (Depakene) Level 39 ug/mL (50-100) Urine Color Yellow Urine Appearance Slightly cloudy Urine pH 8 (4.5-8.0) Urine Specific [place] 1.010 (1.005-1.035) Urine Protein 3+ (NEGATIVE) Urine Glucose (UA) Negative (NEGATIVE) Urine Ketones Negative (NEGATIVE) Urine Occult Blood 5+ (NEGATIVE) Urine Nitrite Negative (NEGATIVE) Urine Bilirubin Negative (NEGATIVE) Urine Urobilinogen Normal MG/DL (0.0-1.0) Urine Leukocyte Esterase 3+ (NEGATIVE) Urine RBC 40-60 /HPF (0 - 0) Urine WBC 20-30 /HPF (0 - 0) Urine Squamous Epithelial Cells Occasional /LPF Urine Bacteria Many /HPF (NONE) Urine Mucus Few /LPF (NONE/OCC) Magnesium Level 1.9 mg/dL (1.7-2.5) Direct Bilirubin 0.1 mg/dL (0.1-0.3) Pro-B-Type Natriuretic Peptide 796 pg/mL (0-450) Test 01/04/17 03:35 01/04/17 11:15 White Blood Count 8.4 K/UL (4.8-10.8) Red Blood Count 3.35 M/UL (4.70-6.10) Hemoglobin 9.3 G/DL (14.2-18.0) Hematocrit 29.9 % (42.0-52.0) Mean Corpuscular Volume 89 FL (80-99) Mean Corpuscular Hemoglobin 27.8 PG (27.0-31.0) Mean Corpuscular Hemoglobin Concent 31.2 G/DL (32.0-36.0) Red Cell Distribution Width 15.5 % (11.6-14.8) Platelet Count 208 K/UL (150-450) Mean Platelet Volume 7.5 FL (6.5-10.1) Neutrophils (%) (Auto) 65.7 % (45.0-75.0) Lymphocytes (%) (Auto) 20.2 % (20.0-45.0) Monocytes (%) (Auto) 11.4 % (1.0-10.0) Eosinophils (%) (Auto) 1.8 % (0.0-3.0) Basophils (%) (Auto) 0.9 % (0.0-2.0) Erythrocyte Sedimentation Rate 105 MM/HR (0-30) Reticulocyte Count 2.5 % (0.0-2.0) Prothrombin Time 10.7 SEC (9.30-11.50) Prothromb Time International Ratio 1.0 (0.9-1.1) Activated Partial Thromboplast Time 34 SEC (23-33) Sodium Level 138 mEQ/L (135-145) Potassium Level 3.4 mEQ/L (3.4-4.9) Chloride Level 100 mEQ/L (98-107) Carbon Dioxide Level 31 mEQ/L (20-30) Anion Gap 7 (5-15) Blood Urea Nitrogen 8 mg/dL (7-23) Creatinine 0.4 mg/dL (0.7-1.2) Estimat Glomerular Filtration Rate mL/min (>60) Glucose Level 137 mg/dL (74-106) Calcium Level 10.3 mg/dL (8.6-10.2) Phosphorus Level 2.7 mg/dL (2.5-4.8) Magnesium Level 1.8 mg/dL (1.7-2.5) Iron Level 29 ug/dL (59-158) Total Iron Binding Capacity 190 ug/dL (250-400) Percent Iron Saturation 15 % (15-50) Unsaturated Iron Binding 161 ug/dL (112-346) Total Bilirubin 0.3 mg/dL (0.0-1.2) Aspartate Amino Transf (AST/SGOT) 14 U/L (5-40) Alanine Aminotransferase (ALT/SGPT) 6 U/L (3-41) Alkaline Phosphatase 100 U/L (40-129) Lactate Dehydrogenase 220 U/L (135-230) Total Protein 6.9 g/dL (6.6-8.7) Albumin 2.1 g/dL (3.5-5.2) Globulin 4.8 g/dL Albumin/Globulin Ratio 0.4 (1.0-2.7) Carcinoembryonic Antigen 4.9 ng/mL Vitamin B12 Level 1684 pg/mL (211-946) Vancomycin Level Trough 4.9 ug/mL (5.0-12.0) Hematology Test 01/04/17 03:35 White Blood Count 8.4 K/UL (4.8-10.8) Red Blood Count 3.35 M/UL (4.70-6.10) L Hemoglobin 9.3 G/DL (14.2-18.0) L Hematocrit 29.9 % (42.0-52.0) L Mean Corpuscular Volume 89 FL (80-99) Mean Corpuscular Hemoglobin 27.8 PG (27.0-31.0) Mean Corpuscular Hemoglobin Concent 31.2 G/DL (32.0-36.0) L Red Cell Distribution Width 15.5 % (11.6-14.8) H Platelet Count 208 K/UL (150-450) Mean Platelet Volume 7.5 FL (6.5-10.1) Neutrophils (%) (Auto) 65.7 % (45.0-75.0) Lymphocytes (%) (Auto) 20.2 % (20.0-45.0) Monocytes (%) (Auto) 11.4 % (1.0-10.0) H Eosinophils (%) (Auto) 1.8 % (0.0-3.0) Basophils (%) (Auto) 0.9 % (0.0-2.0) Erythrocyte Sedimentation Rate 105 MM/HR (0-30) H Reticulocyte Count 2.5 % (0.0-2.0) H Coagulation Test 01/04/17 03:35 Prothrombin Time 10.7 SEC (9.30-11.50) Prothromb Time International Ratio 1.0 (0.9-1.1) Activated Partial Thromboplast Time 34 SEC (23-33) H Chemistry Test 01/04/17 03:35 Sodium Level 138 mEQ/L (135-145) Potassium Level 3.4 mEQ/L (3.4-4.9) Chloride Level 100 mEQ/L (98-107) Carbon Dioxide Level 31 mEQ/L (20-30) H Anion Gap 7 (5-15) Blood Urea Nitrogen 8 mg/dL (7-23) Creatinine 0.4 mg/dL (0.7-1.2) L Estimat Glomerular Filtration Rate mL/min (>60) Glucose Level 137 mg/dL (74-106) H Calcium Level 10.3 mg/dL (8.6-10.2) H Phosphorus Level 2.7 mg/dL (2.5-4.8) Magnesium Level 1.8 mg/dL (1.7-2.5) Iron Level 29 ug/dL (59-158) L Total Iron Binding Capacity 190 ug/dL (250-400) L Percent Iron Saturation 15 % (15-50) Unsaturated Iron Binding 161 ug/dL (112-346) Total Bilirubin 0.3 mg/dL (0.0-1.2) Aspartate Amino Transf (AST/SGOT) 14 U/L (5-40) Alanine Aminotransferase (ALT/SGPT) 6 U/L (3-41) Alkaline Phosphatase 100 U/L (40-129) Lactate Dehydrogenase 220 U/L (135-230) Total Protein 6.9 g/dL (6.6-8.7) Albumin 2.1 g/dL (3.5-5.2) L Globulin 4.8 g/dL Albumin/Globulin Ratio 0.4 (1.0-2.7) L Carcinoembryonic Antigen 4.9 ng/mL H Vitamin B12 Level 1684 pg/mL (211-946) H Folate Pending Risk Assessment & Plan Assessment: [email or web address] Plan: mac Status Change Before Surgery: No Pre-Antibiotics Drug: YULISA Curtis Jan 04, 2017 12:08
--- NOTE | 2017-01-04 12:10 | Immediate Post-Op Evaluation ---
Immediate Post-Op Evalulation Immediate Post-Op Evalulation Procedure: egd Date of Evaluation: Jan 04, 2017 Time of Evaluation: 12:08 IV Fluids: 30ml 0.9ns Blood Products: none Estimated Blood Loss: negligible Blood Pressure Systolic: 120 Blood Pressure Diastolic: 78 Pulse Rate: 84 Respiratory Rate: 18 O2 Sat by Pulse Oximetry: 100 Temperature (Fahrenheit): 98.7 Pain Score (1-10): 0 Nausea: No Vomiting: No Complications none Patient Status: awake, reacts, patent Hydration Status: adequate Drug: YULISA Curtis Jan 04, 2017 12:10
--- NOTE | 2017-01-04 12:11 | 48 Hour Post Anesthesia Eval ---
Post Anesthesia Evaluation Procedure: egd Date of Evaluation: Jan 04, 2017 Time of Evaluation: 12:10 Blood Pressure Systolic: 120 0: 78 Pulse Rate: 84 Respiratory Rate: 18 Temperature (Fahrenheit): 98.7 O2 Sat by Pulse Oximetry: 100 Airway: patent Nausea: No Vomiting: No Pain Intensity: 0 Hydration Status: adequate Cardiopulmonary Status: stable Mental Status/LOC: patient returned to baseline Post-Anesthesia Complications: none Follow-up care needed: N/A YULISA ALFARO Jan 04, 2017 12:11
[2017-01-04] MEDS ORDERED: DiphenhydrAMINE 50mg/ml Inj IVP PRN (12:15)
[2017-01-04] MEDS ORDERED: Midazolam 2mg/2ml Inj IVP PRN (12:15)
[2017-01-04] MEDS ORDERED: Hydromorphone 0.5mg/0.5ml inj IVP PRN (12:15)
[2017-01-04] MEDS ORDERED: Atropine Inj 1mg/10ml Syr IV PRN (12:15)
--- NOTE | 2017-01-04 13:54 | Wound Care Consultation ---
Wound Assessment Wound Assessment #1: Wound Number: 1 Wound Present on Admission: Yes New Wound: No Status Change of Wound: No Wound Location Body Site Modif: mid Wound Location Body Site: sacral Wound Type: pressure ulcer Elsa Test: Does not Elsa Pressure Ulcer Stage: IV/unstageable Wound Thickness: Full Thickness Wound Length: 9.0 Wound Width: 7.5 Wound Depth: 1.5 Percent of Wound [place]/Red: 100 Wound Drainage Description: Serosanguineous Wound Drainage Amount: Moderate Wound Drainage Odor: None/Absent Tissue Surrounding Wound: Macerated Wound Undermining at 12:00: 3.2 Wound Undermining at 3:00: 1.5 Wound Undermining at 6:00: 0.8 Wound General Appearance: Reddened, Draining, Bone Palpable, Muscle Visible Wound Assessment #2: Wound Number: 2 Wound Present on Admission: Yes New Wound: No Status Change of Wound: No Wound Location Body Site Modif: right Wound Location Body Site: foot Wound Type: pressure ulcer Elsa Test: Does not Elsa Pressure Ulcer Stage: IV/unstageable Wound Thickness: Full Thickness Wound Length: 2.5 Wound Width: 4.0 Wound Depth: utd Percent of Wound Black/Brown: 100 Wound Drainage Amount: None Wound Drainage Odor: None/Absent Tissue Surrounding Wound: Intact Wound General Appearance: Asymptomatic, Blackened Wound Assessment #3: Wound Number: 3 Wound Present on Admission: Yes New Wound: No Status Change of Wound: No Wound Location Body Site Modif: right Wound Location Body Site: metatarsal head - 1st Wound Type: pressure ulcer Elsa Test: Does not Elsa Pressure Ulcer Stage: IV/unstageable Wound Thickness: Full Thickness Wound Length: 2.0 Wound Width: 2.0 Wound Depth: utd Percent of Wound Bed Yellow/Wh: 100 - dry Wound Drainage Amount: None Wound Drainage Odor: None/Absent Tissue Surrounding Wound: Intact Wound General Appearance: Asymptomatic Wound Comment #1 Sacral stage IV pressure ulcer #2 Right 1st metatarsal head unstageable pressure ulcer #3 Right foot unstageable dry eschar adhered to the wound bed Recommendation -Keep clean and dry -Local wound care per protocol -Turn and reposition -Optimize nutrition -Low air loss mattress -Offload both heels -Heel protector on both heels -Assess and f/u accordingly for any changes VARUN PURDY RN Jan 04, 2017 13:54
--- NOTE | 2017-01-04 15:01 | Cardiac Electrophysiology PN ---
Subjective Subjective [id number] Objective Last 24 Hour Vital Signs Date Time Temp Pulse Resp B/P (MAP) Pulse Ox O2 Delivery O2 Flow Rate FiO2 01/04/17 12:59 82 20 100 Trach Collar 6.0 28 01/04/17 12:53 T-piece 6.0 28 01/04/17 12:46 66 20 100 Trach Collar 6.0 28 01/04/17 12:46 28 01/04/17 12:45 100 T-piece 6.0 28 01/04/17 12:11 84 18 100 01/04/17 12:10 84 18 100 01/04/17 12:00 98.5 72 21 112/68 100 T-piece 28 01/04/17 12:00 72 01/04/17 12:00 28 01/04/17 08:00 28 01/04/17 08:00 92 01/04/17 08:00 98.7 98 20 121/75 100 T-piece 28 01/04/17 07:33 81 20 100 Trach Collar 6.0 28 01/04/17 07:31 T-piece 6.0 28 01/04/17 07:24 28 01/04/17 07:24 80 20 98 Trach Collar 6.0 28 01/04/17 07:20 99 T-piece 6.0 28 01/04/17 04:00 30 01/04/17 04:00 97.5 96 20 123/84 100 T-piece 30 01/04/17 04:00 105 01/04/17 01:36 T-piece 8.0 30 01/04/17 01:34 T-piece 8.0 30 01/04/17 01:30 99 T-piece 6.0 28 01/04/17 01:30 T-piece 6.0 28 01/04/17 01:10 140 133/77 01/04/17 00:00 30 01/04/17 00:00 97.5 130 20 133/77 100 T-piece 30 01/04/17 00:00 130 01/03/17 20:00 91 01/03/17 20:00 97.5 96 20 144/78 99 T-piece 5.0 30 01/03/17 20:00 5.0 01/03/17 19:20 102 20 98 T-piece 8.0 30 01/03/17 19:19 30 01/03/17 19:18 100 20 96 T-piece 8.0 30 01/03/17 19:18 T-piece 8.0 30 01/03/17 19:17 97 T-piece 8.0 30 01/03/17 16:00 5.0 01/03/17 16:00 78 01/03/17 16:00 97.7 81 20 132/66 100 T-piece 5.0 Intake and Output 01/04/17 01/05/17 19:00 07:00 Intake Total 853.0 ml Output Total 250 ml Balance 603.0 ml IV Total 793.0 ml Tube Feeding 30 ml Other 30 ml Output Urine Total 250 ml Laboratory Tests Test 01/04/17 03:35 01/04/17 11:15 White Blood Count 8.4 K/UL (4.8-10.8) Red Blood Count 3.35 M/UL (4.70-6.10) L Hemoglobin 9.3 G/DL (14.2-18.0) L Hematocrit 29.9 % (42.0-52.0) L Mean Corpuscular Volume 89 FL (80-99) Mean Corpuscular Hemoglobin 27.8 PG (27.0-31.0) Mean Corpuscular Hemoglobin Concent 31.2 G/DL (32.0-36.0) L Red Cell Distribution Width 15.5 % (11.6-14.8) H Platelet Count 208 K/UL (150-450) Mean Platelet Volume 7.5 FL (6.5-10.1) Neutrophils (%) (Auto) 65.7 % (45.0-75.0) Lymphocytes (%) (Auto) 20.2 % (20.0-45.0) Monocytes (%) (Auto) 11.4 % (1.0-10.0) H Eosinophils (%) (Auto) 1.8 % (0.0-3.0) Basophils (%) (Auto) 0.9 % (0.0-2.0) Erythrocyte Sedimentation Rate 105 MM/HR (0-30) H Reticulocyte Count 2.5 % (0.0-2.0) H Prothrombin Time 10.7 SEC (9.30-11.50) Prothromb Time International Ratio 1.0 (0.9-1.1) Activated Partial Thromboplast Time 34 SEC (23-33) H Sodium Level 138 mEQ/L (135-145) Potassium Level 3.4 mEQ/L (3.4-4.9) Chloride Level 100 mEQ/L (98-107) Carbon Dioxide Level 31 mEQ/L (20-30) H Anion Gap 7 (5-15) Blood Urea Nitrogen 8 mg/dL (7-23) Creatinine 0.4 mg/dL (0.7-1.2) L Estimat Glomerular Filtration Rate mL/min (>60) Glucose Level 137 mg/dL (74-106) H Calcium Level 10.3 mg/dL (8.6-10.2) H Phosphorus Level 2.7 mg/dL (2.5-4.8) Magnesium Level 1.8 mg/dL (1.7-2.5) Iron Level 29 ug/dL (59-158) L Total Iron Binding Capacity 190 ug/dL (250-400) L Percent Iron Saturation 15 % (15-50) Unsaturated Iron Binding 161 ug/dL (112-346) Total Bilirubin 0.3 mg/dL (0.0-1.2) Aspartate Amino Transf (AST/SGOT) 14 U/L (5-40) Alanine Aminotransferase (ALT/SGPT) 6 U/L (3-41) Alkaline Phosphatase 100 U/L (40-129) Lactate Dehydrogenase 220 U/L (135-230) Total Protein 6.9 g/dL (6.6-8.7) Albumin 2.1 g/dL (3.5-5.2) L Globulin 4.8 g/dL Albumin/Globulin Ratio 0.4 (1.0-2.7) L Carcinoembryonic Antigen 4.9 ng/mL H Vitamin B12 Level 1684 pg/mL (211-946) H Folate Pending Vancomycin Level Trough 4.9 ug/mL (5.0-12.0) L Microbiology Date/Time Source Procedure Growth Status 01/02/17 13:15 Blood Blood Culture - Preliminary NO GROWTH AFTER 24 HOURS Resulted 01/02/17 13:02 Blood Blood Culture - Preliminary NO GROWTH AFTER 24 HOURS Resulted 01/02/17 17:00 Nasal Nares MRSA Culture - Final NO METHICILLIN RESISTANT STAPH AUREUS... Complete 01/02/17 13:10 Urine,Clean Catch Urine Culture - Final Providencia Stuartii Complete 01/02/17 17:00 Rectum VRE Culture - Final Enterococcus Faecium - Vre Complete ANA ROSA TAYLOR Jan 04, 2017 15:00
[2017-01-04 16:00] VITALS: BP 129/67
--- NOTE | 2017-01-04 18:59 | Cardiology Report ---
APPROVED REPORT EXAM: Two-dimensional and M-mode echocardiogram with Doppler and color Doppler. INDICATION Tachycardia M-Mode DIMENSIONS IVSd1.0 (0.7-1.1cm)Left Atrium (MM)2.8 (1.6-4.0cm) LVDd5.2 (3.5-5.6cm)Aortic Root3.0 (2.0-3.7cm) PWd1.1 (0.7-1.1cm)Aortic Cusp Exc.1.9 (1.5-2.0cm) LVDs3.5 (2.5-4.0cm) PWs1.2 cm Normal left ventricular chamber size, systolic function and wall motion. Left ventricular ejection fraction estimated to be 55-60%. No evidence of left ventricular hypertrophy. No evidence of pericardial or pleural effusion. Right cardiac chamber sizes are within normal limits. Mild left atrial enlargement by 2D. Focal aortic valve sclerosis with adequate cusp excursion. Thickened mitral valve leaflets with normal excursion. Mild mitral annulus and aortic root calcification. Pulmonic valve not well visualized. Normal tricuspid valve structure. IVC not obtainable. A color flow and spectral Doppler study was performed and revealed: Trace mitral regurgitation. Mitral diastolic velocities suggest reduced left ventricular relaxation c/w diastolic dysfunction grade 1. No tricuspid regurgitation. Tricuspid systolic velocities suggests peak right ventricular systolic pressure of 22 mmHg
--- NOTE | 2017-01-04 19:10 | Cardiology Report ---
APPROVED REPORT EKG Measurement Heart [id number] Sinus tachycardia Possible Left atrial enlargement Anteroseptal infarct, age undetermined Abnormal ECG
[2017-01-04 19:51] VITALS: BP 133/65
[2017-01-04] MEDS: Metoprolol 25mg tab PEG SCH (21:03)
[2017-01-05] VITALS: BP 110/55
[2017-01-05] MEDS: NovoLOG Insulin Flexpen SUBQ SCH ×4 (00:41→17:54)
[2017-01-05] MEDS: Ipratropium 0.02% Inh Soln 2.5ml UD HHN SCH ×4 (01:13→20:13)
--- NOTE | 2017-01-05 01:45 | Consultation ---
DATE OF CONSULTATION: 01/04/2017 CARDIOLOGY CONSULTATION REFERRING PHYSICIAN: Guy Lima M.D. REASON FOR CONSULTATION: Atrial fibrillation. History Of Present Illness: The patient is an 81-year-old gentleman with history of hypertension, diabetes, seizure disorder, as well as advanced dementia, who has ventilator-dependent respiratory failure, status post tracheostomy and history of PEG placement, who was admitted for coffee-ground emesis and congestion. The patient has had recurrent infected sacral decubitus as well. The patient is nonverbal, his at the bedside and the patient is currently bedbound and demented. On telemetry, the patient had episodes of atrial fibrillation with rapid ventricular response and a Cardiology consultation was obtained for further evaluation. PAST MEDICAL HISTORY: As mentioned above. MEDICATIONS: Per reconciliation. Social History: He lives in a care home. Does not smoke or drink alcohol. FAMILY HISTORY: Noncontributory. REVIEW OF SYSTEMS: Cannot be obtained. PHYSICAL EXAMINATION: Vital Signs: Blood pressure is 112/68, pulse is 98, respirations 18, and temperature 98.5. HEAD AND NECK: No JVD. Status post tracheostomy. LUNGS: Decreased breath sounds. CARDIOVASCULAR: Irregular S1 and S2 with no gallop or murmur. ABDOMEN: Status post G-tube. EXTREMITIES: No pitting edema. Laboratory Data: White count 8.4, hemoglobin 9.2, hematocrit of 30, and platelet count is 208,000. Sodium 138, potassium 3.4, BUN 8, creatinine 0.5, and glucose of 137. INR is 1. ASSESSMENT AND PLAN: 1. Bursts of atrial fibrillation with rapid ventricular response. Currently, the patient is in sinus rhythm, looks like the patient had low-dose beta-nita suppressing his arrhythmia. The patient received 5 mg intravenous metoprolol earlier as well. 2. Coffee-ground emesis. The patient underwent esophagogastroduodenoscopy today by Dr. Tony that showed gastritis. 3. Respiratory failure, status post tracheostomy. 4. Dysphagia, status post percutaneous endoscopic gastrostomy placement. 5. Sacral decubitus. Further evaluation by wound management and is on IV antibiotics per Dr. Ocampo. Thank you very much, Dr. Lima, for allowing me to participate in the care of this patient. Please do not hesitate to contact me if you have any questions regarding my evaluation. Sonny Aranda M.D. DR: MARITZA JOB#: [id number] CC:
[2017-01-05 04:00] VITALS: BP 110/49
[2017-01-05 05:10] LABS: BASOPHILS % (AUTO) 0.8 % (0.0-2.0); EOSINOPHILS % (AUTO) 1.3 % (0.0-3.0); LYMPHOCYTES % (AUTO) 27.6 % (20.0-45.0); MEAN CORPUSCULAR HEMOGLOBIN 27.9 PG (27.0-31.0); MEAN CORPUSCULAR VOLUME 90 FL (80-99); MONOCYTES % (AUTO) 12.2 % (1.0-10.0); NEUTROPHILS % (AUTO) 58.2 % (45.0-75.0); PLATELET COUNT 259 K/UL (150-450); RED BLOOD COUNT 3.27 M/UL (4.70-6.10); RED CELL DISTRIBUTION WIDTH 15.7 % (11.6-14.8); WHITE BLOOD COUNT 6.1 K/UL (4.8-10.8)
[2017-01-05 05:40] LABS: ALANINE AMINOTRANSFERASE 6 U/L (3-41); ALBUMIN/GLOBULIN RATIO 0.5 (1.0-2.7); ANION GAP 11 (5-15); ASPARTATE AMINO TRANSFERASE 15 U/L (5-40); CALCIUM 8.6 mg/dL (8.6-10.2); CARBON DIOXIDE 31 mEQ/L (20-30); CHLORIDE 99 mEQ/L (98-107); HEMOLYSIS 2; MAGNESIUM 1.7 mg/dL (1.7-2.5); PHOSPHORUS 2.5 mg/dL (2.5-4.8); POTASSIUM 3.4 mEQ/L (3.4-4.9); SODIUM 141 mEQ/L (135-145); TOTAL PROTEIN 6.9 g/dL (6.6-8.7)
[2017-01-05] MEDS: Valproic Acid 250mg/5ml Liquid GT SCH ×3 (06:09→21:42)
[2017-01-05] MEDS: Piperacillin/Tazobactam 3.375 GM in D5W 110 ML IVPB SCH ×3 (06:09→13:33)
[2017-01-05 06:12] LABS: CREATININE 0.4 mg/dL (0.7-1.2)
--- NOTE | 2017-01-05 06:32 | General Progress Note ---
Assessment/Plan Problem List: (1) Atrial fibrillation with RVR ICD Codes: I48.91 - Unspecified atrial fibrillation SNOMED: 388277478259598 (2) Severe sepsis ICD Codes: A41.9 - Sepsis, unspecified organism; R65.20 - Severe sepsis without septic shock SNOMED: 56423045 (3) UTI (urinary tract infection) ICD Codes: N39.0 - Urinary tract infection, site not specified SNOMED: 57357726 (4) Decubitus ulcer of sacral region, stage 4 ICD Codes: L89.154 - Pressure ulcer of sacral region, stage 4 SNOMED: 754582821, 688946025 (5) Coffee ground emesis ICD Codes: K92.0 - Hematemesis SNOMED: 641547017, 76596309 (6) Acute blood loss anemia ICD Codes: D62 - Acute posthemorrhagic anemia SNOMED: 520814111 (7) Advanced dementia ICD Codes: F03.90 - Unspecified dementia without behavioral disturbance SNOMED: 96670056 (8) Tracheostomy in place ICD Codes: Z93.0 - Tracheostomy status SNOMED: 552919388 (9) Hyperkalemia ICD Codes: E87.5 - Hyperkalemia SNOMED: 68966341 (10) S/P percutaneous endoscopic gastrostomy (PEG) tube placement ICD Codes: Z93.1 - Gastrostomy status SNOMED: 394291117 (11) HTN (hypertension) ICD Codes: I10 - Essential (primary) hypertension SNOMED: 91663591 (12) Seizure disorder ICD Codes: G40.909 - Epilepsy, unspecified, not intractable, without status epilepticus SNOMED: 812998261 (13) Diabetes mellitus ICD Codes: E11.9 - Type 2 diabetes mellitus without complications SNOMED: 55972073 (14) Functional quadriplegia ICD Codes: R53.2 - Functional quadriplegia SNOMED: 337507652402624 Status: stable Assessment/Plan GI, Pulm and ID consulted D/c vanco (01/02-01/03) Cont zosyn (01/02-) F/u urine and blood cultures D/c IVFs Monitor lytes closely Type and screen Trend CBC, transfuse for hgb<7.5 or active bleeding s/p EGD on 01/04 which showed gastritis PPI Resume tube feeds Cardiology consulted given Afib w/ RVR MTP 25mg BID Trach and PEG care Wound care consult Supportive care Possible d/c back to SNF tomorrow DVT Prophylaxis: SCD Code Status: Full Hospital Classification Declaration: Based on this initial evaluation, and depending on the patient's clinical course, I anticipate that this patient will require hospitalization for 1-2 days for severe sepsis and close respiratory/ hemodynamic monitoring. Disposition: Once the patient is stable to leave the hospital, I anticipate the patient will likely be discharged to the following environment: back to SNF I spent 40 minutes on this patient's case, and 22 minutes were dedicated to counseling and/or care coordination. Discussed with patient/family, nursing staff, SW/CM, pulm, ID, GI regarding clinical status, treatment course, and disposition planning. Time of note may not reflect time of encounter. Subjective Date patient seen: Jan 04, 2017 Time patient seen: 15:30 ROS Limited/Unobtainable: Yes Allergies: Coded Allergies: No Known Allergies (Unverified , 01/02/17) Subjective Episode of Afib RVR w/ HR 150s overnight. MTP 5mg IVP given w/ good response. Now in NSR WBC down to 6K No fevers this AM Urine cx w/ >100K Providencii stuarti Pt non-verbal, bed-bound at baseline. Poorly responsive at baseline Unable to obtain ROS given dementia, non-verbal Objective Last 24 Hour Vital Signs Date Time Temp Pulse Resp B/P (MAP) Pulse Ox O2 Delivery O2 Flow Rate FiO2 01/05/17 04:00 97.5 69 19 110/49 100 T-piece 28 01/05/17 04:00 77 01/05/17 01:14 74 20 100 T-piece 6.0 28 01/05/17 01:13 T-piece 6.0 28 01/05/17 01:13 69 20 100 Trach Collar 6.0 28 01/05/17 01:13 100 T-piece 6.0 28 01/05/17 00:00 69 01/05/17 00:00 97.9 68 20 110/55 100 T-piece 28 01/05/17 00:00 28 01/04/17 21:03 91 133/65 01/04/17 20:00 92 01/04/17 20:00 28 01/04/17 19:51 97.5 91 20 133/65 98 T-piece 01/04/17 19:24 85 20 100 Trach Collar 6.0 01/04/17 19:21 76 20 100 Trach Collar 6.0 01/04/17 19:21 100 T-piece 6.0 01/04/17 19:21 T-piece 6.0 01/04/17 19:21 28 01/04/17 16:00 82 01/04/17 16:00 28 01/04/17 16:00 97.8 79 21 129/67 100 T-piece 01/04/17 12:59 82 20 100 Trach Collar 6.0 01/04/17 12:53 T-piece 6.0 01/04/17 12:46 66 20 100 Trach Collar 6.0 01/04/17 12:46 28 01/04/17 12:45 100 T-piece 6.0 01/04/17 12:11 84 18 100 01/04/17 12:10 84 18 100 01/04/17 12:00 98.5 72 21 112/68 100 T-piece 01/04/17 12:00 72 01/04/17 12:00 28 01/04/17 08:00 28 01/04/17 08:00 92 01/04/17 08:00 98.7 98 20 121/75 100 T-piece 01/04/17 07:33 81 20 100 Trach Collar 6.0 01/04/17 07:31 T-piece 6.0 01/04/17 07:24 28 01/04/17 07:24 80 20 98 Trach Collar 6.0 01/04/17 07:20 99 T-piece 6.0 28 Laboratory Tests 01/04/17 11:15: Vancomycin Level Trough 4.9L 01/05/17 03:10: White Blood Count 6.1, Red Blood Count 3.27L, Hemoglobin 9.1L, Hematocrit 29.4L , Mean Corpuscular Volume 90, Mean Corpuscular Hemoglobin 27.9, Mean Corpuscular Hemoglobin Concent 31.0L, Red Cell Distribution Width 15.7H, Platelet Count 259, Mean Platelet Volume 7.0, Neutrophils (%) (Auto) 58.2, Lymphocytes (%) (Auto) 27.6, Monocytes (%) (Auto) 12.2H, Eosinophils (%) (Auto) 1.3, Basophils (%) (Auto) 0.8, Sodium Level 141, Potassium Level 3.4, Chloride Level 99, Carbon Dioxide Level 31H, Anion Gap 11, Blood Urea Nitrogen 8, Creatinine 0.4L, Estimat Glomerular Filtration Rate , Glucose Level 139H, Calcium Level 8.6, Phosphorus Level 2.5, Magnesium Level 1.7, Total Bilirubin < 0.2, Aspartate Amino Transf (AST/SGOT) 15, Alanine Aminotransferase (ALT/SGPT) 6 , Alkaline Phosphatase 97, Total Protein 6.9, Albumin 2.5L, Globulin 4.4, Albumin/Globulin Ratio 0.5L Height (Feet): 5 Height (Inches): 7.00 Weight (Pounds): 178 Objective General: Non-verbal, unresponsive to voice or pain, +trach Head: normocephalic, without obvious abnormality, atraumatic Eyes: conjunctivae/corneas clear. PERRL Throat: lips, mucosa, and tongue normal. MMM Neck: supple, symmetrical, trachea midline, and no JVD Lungs: clear to auscultation bilaterally Heart: regular rate and rhythm, S1, S2 normal, no murmur, click, rub or gallop Abdomen: soft, non-tender, non-distended, bowel sounds normal; +PEG Extremities: extremities normal, atraumatic, no cyanosis or edema Pulses: 2+ and symmetric Skin: skin color, texture, turgor normal; no rashes or lesions Neurologic: grossly normal, no focal deficits General: Non-verbal, unresponsive to voice or pain, +trach Head: normocephalic, without obvious abnormality, atraumatic Eyes: conjunctivae/corneas clear. PERRL Throat: lips, mucosa, and tongue normal. MMM Neck: supple, symmetrical, trachea midline, and no JVD Lungs: clear to auscultation bilaterally Heart: regular rate and rhythm, S1, S2 normal, no murmur, click, rub or gallop Abdomen: soft, non-tender, non-distended, bowel sounds normal; +PEG Extremities: extremities normal, atraumatic, no cyanosis or edema Pulses: 2+ and symmetric Skin: skin color, texture, turgor normal; no rashes or lesions Neurologic: grossly normal, no focal deficits Travis HinojosaD. Jan 05, 2017 06:32
[2017-01-05 08:00] VITALS: BP 114/56
[2017-01-05] MEDS: Lacosamide 100 MG TABLET ORAL SCH ×2 (09:22→21:42)
[2017-01-05] MEDS: Metoprolol 25mg tab PEG SCH ×2 (09:22→21:42)
[2017-01-05] MEDS: Docusate 100mg/10ml Liq NG SCH ×2 (09:22→18:00)
[2017-01-05] MEDS: levETIRAcetam 500mg/5ml Liquid GT SCH ×2 (09:22→18:04)
[2017-01-05] MEDS: Heparin 5000 units/ml inj SUBQ SCH ×2 (09:23→21:50)
[2017-01-05 12:03] VITALS: BP 112/61
--- NOTE | 2017-01-05 12:49 | GI Progress Note ---
Assessment/Plan Problems: (1) Acute blood loss anemia ICD Codes: D62 - Acute posthemorrhagic anemia SNOMED: 352422458 (2) Diabetes mellitus ICD Codes: E11.9 - Type 2 diabetes mellitus without complications SNOMED: 03054501 (3) Advanced dementia ICD Codes: F03.90 - Unspecified dementia without behavioral disturbance SNOMED: 20681519 (4) G tube feedings ICD Codes: Z93.1 - Gastrostomy status SNOMED: 114085760, 145744861 (5) Coffee ground emesis ICD Codes: K92.0 - Hematemesis SNOMED: 221545285, 93063572 Status: stable Status Narrative Discussed with Dr. Tony. Assessment/Plan Endoscopy Procedure Note Indication for Procedure: anemia, GIB Procedures Performed: EGD Operative Findings/Diagnosis: gastritis CHANEL TONY - Jan 04, 2017 11:54 Recommendations: GTFs per dietary fu bx and treat appropriately monitor H&H, prn tranfusions ppi fu labs Subjective Subjective limited Objective Last 24 Hour Vital Signs Date Time Temp Pulse Resp B/P (MAP) Pulse Ox O2 Delivery O2 Flow Rate FiO2 01/05/17 12:03 80 01/05/17 12:03 28 01/05/17 12:03 97.8 80 20 112/61 100 T-piece 01/05/17 09:22 84 114/56 01/05/17 08:00 84 01/05/17 08:00 01/05/17 08:00 98.3 84 20 114/56 100 T-piece 01/05/17 06:53 100 T-piece 6.0 01/05/17 06:53 T-piece 6.0 01/05/17 06:53 81 20 100 T-piece 6.0 01/05/17 06:48 83 18 100 Trach Collar 6.0 01/05/17 06:48 28 01/05/17 04:00 97.5 69 19 110/49 100 T-piece 01/05/17 04:00 01/05/17 04:00 77 01/05/17 01:14 74 20 100 T-piece 6.0 01/05/17 01:13 T-piece 6.0 01/05/17 01:13 69 20 100 Trach Collar 6.0 01/05/17 01:13 100 T-piece 6.0 28 01/05/17 00:00 69 01/05/17 00:00 97.9 68 20 110/55 100 T-piece 28 01/05/17 00:00 28 01/04/17 21:03 91 133/65 01/04/17 20:00 92 01/04/17 20:00 28 01/04/17 19:51 97.5 91 20 133/65 98 T-piece 28 01/04/17 19:24 85 20 100 Trach Collar 6.0 28 01/04/17 19:21 76 20 100 Trach Collar 6.0 28 01/04/17 19:21 100 T-piece 6.0 28 01/04/17 19:21 T-piece 6.0 28 01/04/17 19:21 28 01/04/17 16:00 82 01/04/17 16:00 28 01/04/17 16:00 97.8 79 21 129/67 100 T-piece 01/04/17 12:59 82 20 100 Trach Collar 6.0 01/04/17 12:53 T-piece 6.0 28 Laboratory Tests Test 01/05/17 03:10 White Blood Count 6.1 K/UL (4.8-10.8) Red Blood Count 3.27 M/UL (4.70-6.10) L Hemoglobin 9.1 G/DL (14.2-18.0) L Hematocrit 29.4 % (42.0-52.0) L Mean Corpuscular Volume 90 FL (80-99) Mean Corpuscular Hemoglobin 27.9 PG (27.0-31.0) Mean Corpuscular Hemoglobin Concent 31.0 G/DL (32.0-36.0) L Red Cell Distribution Width 15.7 % (11.6-14.8) H Platelet Count 259 K/UL (150-450) Mean Platelet Volume 7.0 FL (6.5-10.1) Neutrophils (%) (Auto) 58.2 % (45.0-75.0) Lymphocytes (%) (Auto) 27.6 % (20.0-45.0) Monocytes (%) (Auto) 12.2 % (1.0-10.0) H Eosinophils (%) (Auto) 1.3 % (0.0-3.0) Basophils (%) (Auto) 0.8 % (0.0-2.0) Sodium Level 141 mEQ/L (135-145) Potassium Level 3.4 mEQ/L (3.4-4.9) Chloride Level 99 mEQ/L (98-107) Carbon Dioxide Level 31 mEQ/L (20-30) H Anion Gap 11 (5-15) Blood Urea Nitrogen 8 mg/dL (7-23) Creatinine 0.4 mg/dL (0.7-1.2) L Estimat Glomerular Filtration Rate mL/min (>60) Glucose Level 139 mg/dL (74-106) H Calcium Level 8.6 mg/dL (8.6-10.2) Phosphorus Level 2.5 mg/dL (2.5-4.8) Magnesium Level 1.7 mg/dL (1.7-2.5) Total Bilirubin < 0.2 mg/dL (0.0-1.2) Aspartate Amino Transf (AST/SGOT) 15 U/L (5-40) Alanine Aminotransferase (ALT/SGPT) 6 U/L (3-41) Alkaline Phosphatase 97 U/L (40-129) Total Protein 6.9 g/dL (6.6-8.7) Albumin 2.5 g/dL (3.5-5.2) L Globulin 4.4 g/dL Albumin/Globulin Ratio 0.5 (1.0-2.7) L Height (Feet): 5 Height (Inches): 7.00 Weight (Pounds): 178 General Appearance: no apparent distress, alert Cardiovascular: normal rate Respiratory/Chest: normal breath sounds, no respiratory distress Abdominal Exam: normal bowel sounds, non tender, soft Kalpana Oneil N.PRuben Jan 05, 2017 12:49
--- NOTE | 2017-01-05 12:57 | General Progress Note ---
Assessment/Plan Problem List: (1) Atrial fibrillation with RVR ICD Codes: I48.91 - Unspecified atrial fibrillation SNOMED: 550266478276895 (2) Severe sepsis ICD Codes: A41.9 - Sepsis, unspecified organism; R65.20 - Severe sepsis without septic shock SNOMED: 20361044 (3) UTI (urinary tract infection) ICD Codes: N39.0 - Urinary tract infection, site not specified SNOMED: 02175569 (4) Decubitus ulcer of sacral region, stage 4 ICD Codes: L89.154 - Pressure ulcer of sacral region, stage 4 SNOMED: 615601461, 311465189 (5) Coffee ground emesis ICD Codes: K92.0 - Hematemesis SNOMED: 337220007, 53249946 (6) Acute blood loss anemia ICD Codes: D62 - Acute posthemorrhagic anemia SNOMED: 101348118 (7) Advanced dementia ICD Codes: F03.90 - Unspecified dementia without behavioral disturbance SNOMED: 14335327 (8) Tracheostomy in place ICD Codes: Z93.0 - Tracheostomy status SNOMED: 824025450 (9) Hyperkalemia ICD Codes: E87.5 - Hyperkalemia SNOMED: 37034049 (10) S/P percutaneous endoscopic gastrostomy (PEG) tube placement ICD Codes: Z93.1 - Gastrostomy status SNOMED: 642013745 (11) HTN (hypertension) ICD Codes: I10 - Essential (primary) hypertension SNOMED: 71114572 (12) Seizure disorder ICD Codes: G40.909 - Epilepsy, unspecified, not intractable, without status epilepticus SNOMED: 084066997 (13) Diabetes mellitus ICD Codes: E11.9 - Type 2 diabetes mellitus without complications SNOMED: 82402895 (14) Functional quadriplegia ICD Codes: R53.2 - Functional quadriplegia SNOMED: 049952362075710 Status: stable Assessment/Plan GI, Pulm and ID consulted D/c vanco (01/02-01/03) D/c zosyn (01/02-01/04) Start ceftriaxone per ID x 1 more week F/u urine and blood cultures D/c IVFs Monitor lytes closely Type and screen Trend CBC, transfuse for hgb<7.5 or active bleeding s/p EGD on 01/04 which showed gastritis PPI Resume tube feeds Cardiology consulted given Afib w/ RVR MTP 25mg BID Trach and PEG care Wound care consult Supportive care Possible d/c back to SNF tomorrow DVT Prophylaxis: SCD Code Status: Full Hospital Classification Declaration: Based on this initial evaluation, and depending on the patient's clinical course, I anticipate that this patient will require hospitalization for 1-2 days for severe sepsis and close respiratory/ hemodynamic monitoring. Disposition: Once the patient is stable to leave the hospital, I anticipate the patient will likely be discharged to the following environment: back to SNF I spent 40 minutes on this patient's case, and 22 minutes were dedicated to counseling and/or care coordination. Discussed with patient/family, nursing staff, SW/CM, pulm, ID, GI regarding clinical status, treatment course, and disposition planning. Time of note may not reflect time of encounter. Subjective Date patient seen: Jan 05, 2017 Time patient seen: 14:00 ROS Limited/Unobtainable: No Allergies: Coded Allergies: No Known Allergies (Unverified , 01/02/17) Subjective No acute o/n events No further Afib RVR Pt non-verbal, bed-bound at baseline. Poorly responsive at baseline Unable to obtain ROS given dementia, non-verbal Objective Last 24 Hour Vital Signs Date Time Temp Pulse Resp B/P (MAP) Pulse Ox O2 Delivery O2 Flow Rate FiO2 01/05/17 12:03 80 01/05/17 12:03 28 01/05/17 12:03 97.8 80 20 112/61 100 T-piece 01/05/17 09:22 84 114/56 01/05/17 08:00 84 01/05/17 08:00 28 01/05/17 08:00 98.3 84 20 114/56 100 T-piece 01/05/17 06:53 100 T-piece 6.0 01/05/17 06:53 T-piece 6.0 01/05/17 06:53 81 20 100 T-piece 6.0 01/05/17 06:48 83 18 100 Trach Collar 6.0 01/05/17 06:48 28 01/05/17 04:00 97.5 69 19 110/49 100 T-piece 01/05/17 04:00 28 01/05/17 04:00 77 01/05/17 01:14 74 20 100 T-piece 6.0 01/05/17 01:13 T-piece 6.0 01/05/17 01:13 69 20 100 Trach Collar 6.0 01/05/17 01:13 100 T-piece 6.0 01/05/17 00:00 69 01/05/17 00:00 97.9 68 20 110/55 100 T-piece 01/05/17 00:00 28 01/04/17 21:03 91 133/65 01/04/17 20:00 92 01/04/17 20:00 28 01/04/17 19:51 97.5 91 20 133/65 98 T-piece 01/04/17 19:24 85 20 100 Trach Collar 6.0 01/04/17 19:21 76 20 100 Trach Collar 6.0 01/04/17 19:21 100 T-piece 6.0 01/04/17 19:21 T-piece 6.0 01/04/17 19:21 28 01/04/17 16:00 82 01/04/17 16:00 28 01/04/17 16:00 97.8 79 21 129/67 100 T-piece 01/04/17 12:59 82 20 100 Trach Collar 6.0 Laboratory Tests 01/05/17 03:10: White Blood Count 6.1, Red Blood Count 3.27L, Hemoglobin 9.1L, Hematocrit 29.4L , Mean Corpuscular Volume 90, Mean Corpuscular Hemoglobin 27.9, Mean Corpuscular Hemoglobin Concent 31.0L, Red Cell Distribution Width 15.7H, Platelet Count 259, Mean Platelet Volume 7.0, Neutrophils (%) (Auto) 58.2, Lymphocytes (%) (Auto) 27.6, Monocytes (%) (Auto) 12.2H, Eosinophils (%) (Auto) 1.3, Basophils (%) (Auto) 0.8, Sodium Level 141, Potassium Level 3.4, Chloride Level 99, Carbon Dioxide Level 31H, Anion Gap 11, Blood Urea Nitrogen 8, Creatinine 0.4L, Estimat Glomerular Filtration Rate , Glucose Level 139H, Calcium Level 8.6, Phosphorus Level 2.5, Magnesium Level 1.7, Total Bilirubin < 0.2, Aspartate Amino Transf (AST/SGOT) 15, Alanine Aminotransferase (ALT/SGPT) 6 , Alkaline Phosphatase 97, Total Protein 6.9, Albumin 2.5L, Globulin 4.4, Albumin/Globulin Ratio 0.5L Height (Feet): 5 Height (Inches): 7.00 Weight (Pounds): 178 Objective General: Non-verbal, unresponsive to voice or pain, +trach Head: normocephalic, without obvious abnormality, atraumatic Eyes: conjunctivae/corneas clear. PERRL Throat: lips, mucosa, and tongue normal. MMM Neck: supple, symmetrical, trachea midline, and no JVD Lungs: clear to auscultation bilaterally Heart: regular rate and rhythm, S1, S2 normal, no murmur, click, rub or gallop Abdomen: soft, non-tender, non-distended, bowel sounds normal; +PEG Extremities: extremities normal, atraumatic, no cyanosis or edema Pulses: 2+ and symmetric Skin: skin color, texture, turgor normal; no rashes or lesions Neurologic: grossly normal, no focal deficits General: Non-verbal, unresponsive to voice or pain, +trach Head: normocephalic, without obvious abnormality, atraumatic Eyes: conjunctivae/corneas clear. PERRL Throat: lips, mucosa, and tongue normal. MMM Neck: supple, symmetrical, trachea midline, and no JVD Lungs: clear to auscultation bilaterally Heart: regular rate and rhythm, S1, S2 normal, no murmur, click, rub or gallop Abdomen: soft, non-tender, non-distended, bowel sounds normal; +PEG Extremities: extremities normal, atraumatic, no cyanosis or edema Pulses: 2+ and symmetric Skin: skin color, texture, turgor normal; no rashes or lesions Neurologic: grossly normal, no focal deficits Travis Hinojosa M.D. Jan 05, 2017 12:57
--- NOTE | 2017-01-05 14:56 | Infectious Diseases Prog Note ---
Assessment/Plan Assessment/Plan ASSESSMENT AND PLAN: 1. providencia uti with sepsis and leukocytosis and fevers - clinically better - change abx to ceftriaxone - day # 3/10 abx - d/w Dr. Robles 2. Wound care protocol. I do not think wounds are clearly infected. 3. Anemia, atx, vre colonization and isolation 4. Tracheostomy, no ventilator and history of respiratory failure. 5. Dysphagia and gastrostomy tube. 6. Diabetes. 7. History of pressure ulcers. Wound care protocol. 8. History of Alzheimer's. 9. Dementia. 10. Poor historian. 11. Chronic respiratory failure. 12. Bedbound. 13. Weakness. 14. Coffee-ground emesis, treatment per primary consultants. 15. Allergies are negative. 16. MAR was noted. 17. Case was discussed with RN. 18. Family history is noncontributory. 19. Notes are reviewed. 20. MAR was noted. 21. Continue treatment per primary consultants. 22. skin care per protocol - doubt wounds septic source 23. Notes and records were reviewed. Subjective Constitutional: Denies: fever HEENT: Reports: congestion, other - + trach, no vent Respiratory: Denies: shortness of breath Cardiovascular: Denies: chest pain Gastrointestinal/Abdominal: Denies: nausea, vomiting, diarrhea Genitourinary: Reports: other - + olvera Neurologic: Denies: headache, weakness Psychiatric: Reports: no symptoms Skin: Denies: rash Hematologic: Denies: bleeding Musculoskeletal: Denies: pain Allergies: Coded Allergies: No Known Allergies (Unverified , 01/02/17) Objective Vital Signs Last 24 Hour Vital Signs Date Time Temp Pulse Resp B/P (MAP) Pulse Ox O2 Delivery O2 Flow Rate FiO2 01/05/17 12:57 83 20 100 T-piece 6.0 01/05/17 12:50 28 01/05/17 12:50 100 T-piece 6.0 01/05/17 12:50 80 18 100 Trach Collar 6.0 01/05/17 12:50 T-piece 6.0 01/05/17 12:03 80 01/05/17 12:03 01/05/17 12:03 97.8 80 20 112/61 100 T-piece 01/05/17 09:22 84 114/56 01/05/17 08:00 84 01/05/17 08:00 28 01/05/17 08:00 98.3 84 20 114/56 100 T-piece 01/05/17 06:53 100 T-piece 6.0 01/05/17 06:53 T-piece 6.0 01/05/17 06:53 81 20 100 T-piece 6.0 01/05/17 06:48 83 18 100 Trach Collar 6.0 01/05/17 06:48 01/05/17 04:00 97.5 69 19 110/49 100 T-piece 01/05/17 04:00 01/05/17 04:00 77 01/05/17 01:14 74 20 100 T-piece 6.0 01/05/17 01:13 T-piece 6.0 01/05/17 01:13 69 20 100 Trach Collar 6.0 01/05/17 01:13 100 T-piece 6.0 01/05/17 00:00 69 01/05/17 00:00 97.9 68 20 110/55 100 T-piece 01/05/17 00:00 01/04/17 21:03 91 133/65 01/04/17 20:00 92 01/04/17 20:00 01/04/17 19:51 97.5 91 20 133/65 98 T-piece 01/04/17 19:24 85 20 100 Trach Collar 6.0 01/04/17 19:21 76 20 100 Trach Collar 6.0 01/04/17 19:21 100 T-piece 6.0 01/04/17 19:21 T-piece 6.0 01/04/17 19:21 28 01/04/17 16:00 82 01/04/17 16:00 28 01/04/17 16:00 97.8 79 21 129/67 100 T-piece 28 Height (Feet): 5 Height (Inches): 7.00 Weight (Pounds): 178 General Appearance: no acute distress HEENT: normocephalic, mucous membranes moist, EOMI, supple, no JVD, status post trach Respiratory/Chest: no accessory muscle use, rhonchi - bilaterally, other - fairly clear bilateral with occ rhonchi Cardiovascular: normal rate, regular rhythm, no gallop/murmur, no JVD Abdomen: normal bowel sounds, soft, non tender, no organomegaly, non distended Genitourinary: other - + olvera - urine cloudy Extremities: no cyanosis Skin: no rash, no ulcers Neurologic/Psychiatric: alert, responsive Lymphatic: no neck adenopathy Musculoskeletal: no effusion Objective chest x-ray - atx (reviewed) Microbiology Date/Time Source Procedure Growth Status 01/02/17 17:00 Nasal Nares MRSA Culture - Final NO METHICILLIN RESISTANT STAPH AUREUS... Complete 01/02/17 17:00 Rectum VRE Culture - Final Enterococcus Faecium - Vre Complete Laboratory Tests Test 01/05/17 03:10 White Blood Count 6.1 K/UL (4.8-10.8) Red Blood Count 3.27 M/UL (4.70-6.10) L Hemoglobin 9.1 G/DL (14.2-18.0) L Hematocrit 29.4 % (42.0-52.0) L Mean Corpuscular Volume 90 FL (80-99) Mean Corpuscular Hemoglobin 27.9 PG (27.0-31.0) Mean Corpuscular Hemoglobin Concent 31.0 G/DL (32.0-36.0) L Red Cell Distribution Width 15.7 % (11.6-14.8) H Platelet Count 259 K/UL (150-450) Mean Platelet Volume 7.0 FL (6.5-10.1) Neutrophils (%) (Auto) 58.2 % (45.0-75.0) Lymphocytes (%) (Auto) 27.6 % (20.0-45.0) Monocytes (%) (Auto) 12.2 % (1.0-10.0) H Eosinophils (%) (Auto) 1.3 % (0.0-3.0) Basophils (%) (Auto) 0.8 % (0.0-2.0) Sodium Level 141 mEQ/L (135-145) Potassium Level 3.4 mEQ/L (3.4-4.9) Chloride Level 99 mEQ/L (98-107) Carbon Dioxide Level 31 mEQ/L (20-30) H Anion Gap 11 (5-15) Blood Urea Nitrogen 8 mg/dL (7-23) Creatinine 0.4 mg/dL (0.7-1.2) L Estimat Glomerular Filtration Rate mL/min (>60) Glucose Level 139 mg/dL (74-106) H Calcium Level 8.6 mg/dL (8.6-10.2) Phosphorus Level 2.5 mg/dL (2.5-4.8) Magnesium Level 1.7 mg/dL (1.7-2.5) Total Bilirubin < 0.2 mg/dL (0.0-1.2) Aspartate Amino Transf (AST/SGOT) 15 U/L (5-40) Alanine Aminotransferase (ALT/SGPT) 6 U/L (3-41) Alkaline Phosphatase 97 U/L (40-129) Total Protein 6.9 g/dL (6.6-8.7) Albumin 2.5 g/dL (3.5-5.2) L Globulin 4.4 g/dL Albumin/Globulin Ratio 0.5 (1.0-2.7) L Current Medications Medications (Trade) Dose Ordered Sig/Dorie Route PRN Reason Start Time Stop Time Status Last Admin Dose Admin Acetaminophen (Tylenol) 650 mg Q4H PRN ORAL Mild Pain (Pain Scale 1-3) 01/02/17 16:15 02/01/17 16:14 Albuterol/ Ipratropium (DuoNeb 0.5-3(2.5)mg/3ml) 3 ml Q4H PRN HHN Shortness of Breath 01/02/17 16:15 01/07/17 16:14 Bisacodyl (Dulcolax) 10 mg DAILYPRN PRN RECTAL Constipation 01/02/17 16:15 02/01/17 16:14 Dextrose (Dextrose 50%) STAT PRN IV Hypoglycemia 01/02/17 16:15 02/01/17 16:14 Docusate Sodium (Colace) 100 mg TWICE A DAY NG 01/05/17 09:00 02/04/17 08:59 01/05/17 09:22 Heparin Sodium (Porcine) (Heparin 5000 units/ml) 5,000 units EVERY 12 HOURS SUBQ 01/02/17 21:00 02/01/17 20:59 01/05/17 09:23 Insulin Aspart (NovoLOG) Q6HR SUBQ 01/03/17 00:00 02/01/17 20:59 01/05/17 12:11 Ipratropium [place] (Atrovent) 500 mcg Q6HRT HHN 01/02/17 17:00 01/07/17 16:59 01/05/17 12:59 Lacosamide (Vimpat) 100 mg EVERY 12 HOURS ORAL 01/02/17 21:00 02/01/17 20:59 01/05/17 09:22 Levetiracetam (Keppra) 1,500 mg BID GT 01/02/17 18:00 02/01/17 17:59 01/05/17 09:22 Magnesium Hydroxide (Mom) 30 ml HSPRN PRN ORAL Constipation 01/02/17 16:15 02/01/17 16:14 Metoprolol Tartrate (Lopressor) 25 mg Q12HR PEG 01/04/17 21:00 02/03/17 20:59 01/05/17 09:22 Ondansetron HCl (Zofran) 4 mg Q6H PRN IVP Nausea & Vomiting 01/02/17 16:15 02/01/17 16:14 Pantoprazole (Protonix) 40 mg DAILY ORAL 01/03/17 09:00 02/02/17 08:59 01/05/17 09:22 Piperacillin Sod/ Tazobactam Sod 3.375 gm/Dextrose 110 ml @ 27.5 mls/hr Q8HR IVPB 01/02/17 22:00 01/09/17 21:59 01/05/17 13:33 Polyethylene Glycol (Miralax) 17 gm DAILYPRN PRN GT Constipation 01/02/17 17:00 02/01/17 16:59 Valproic Acid (Depakene) 500 mg Q8HR GT 01/02/17 22:00 02/01/17 21:59 01/05/17 13:19 JENNIFER BEVERLY Jan 05, 2017 14:56
--- NOTE | 2017-01-05 15:25 | Pulmonology Progress Note ---
Assessment/Plan Problems: (1) Respiratory failure (2) Severe sepsis (3) Coffee ground emesis (4) Tracheostomy care (5) Alzheimer's dementia (6) G tube feedings (7) UTI (urinary tract infection) Respiratory: monitor respiratory rate, adjust FIO2 Cardiac: continue to monitor HR/BP Renal: F/U I&O, check electrolytes Infectious Disease: check cultures, continue antibiotics - afebrile on current regimen, other - GNR in urine Gastrointestinal: continue feedings/current rate, other - endosocoy showed gastritis Endocrine: monitor blood sugar Hematologic: monitor H/H Prophylaxis: Protonix, SCDs Notes Reviewed: grassroots organizer, ID, GI Discussed with: nurses, consultants Subjective ROS Limited/Unobtainable: Yes Allergies: Coded Allergies: No Known Allergies (Unverified , 01/02/17) Objective Last 24 Hour Vital Signs Date Time Temp Pulse Resp B/P (MAP) Pulse Ox O2 Delivery O2 Flow Rate FiO2 01/05/17 12:57 83 20 100 T-piece 6.0 01/05/17 12:50 28 01/05/17 12:50 100 T-piece 6.0 01/05/17 12:50 80 18 100 Trach Collar 6.0 01/05/17 12:50 T-piece 6.0 01/05/17 12:03 80 01/05/17 12:03 01/05/17 12:03 97.8 80 20 112/61 100 T-piece 01/05/17 09:22 84 114/56 01/05/17 08:00 84 01/05/17 08:00 01/05/17 08:00 98.3 84 20 114/56 100 T-piece 01/05/17 06:53 100 T-piece 6.0 01/05/17 06:53 T-piece 6.0 01/05/17 06:53 81 20 100 T-piece 6.0 01/05/17 06:48 83 18 100 Trach Collar 6.0 01/05/17 06:48 01/05/17 04:00 97.5 69 19 110/49 100 T-piece 01/05/17 04:00 01/05/17 04:00 77 01/05/17 01:14 74 20 100 T-piece 6.0 01/05/17 01:13 T-piece 6.0 28 01/05/17 01:13 69 20 100 Trach Collar 6.0 28 01/05/17 01:13 100 T-piece 6.0 01/05/17 00:00 69 01/05/17 00:00 97.9 68 20 110/55 100 T-piece 28 01/05/17 00:00 28 01/04/17 21:03 91 133/65 01/04/17 20:00 92 01/04/17 20:00 28 01/04/17 19:51 97.5 91 20 133/65 98 T-piece 28 01/04/17 19:24 85 20 100 Trach Collar 6.0 28 01/04/17 19:21 76 20 100 Trach Collar 6.0 01/04/17 19:21 100 T-piece 6.0 01/04/17 19:21 T-piece 6.0 28 01/04/17 19:21 28 01/04/17 16:00 82 01/04/17 16:00 28 01/04/17 16:00 97.8 79 21 129/67 100 T-piece 28 General Appearance: WD/WN HEENT: status post trach Respiratory/Chest: chest wall non-tender, lungs clear Cardiovascular: normal peripheral pulses Abdomen: no scars Skin: no rash, no ulcers Microbiology Date/Time Source Procedure Growth Status 01/02/17 17:00 Nasal Nares MRSA Culture - Final NO METHICILLIN RESISTANT STAPH AUREUS... Complete 01/02/17 17:00 Rectum VRE Culture - Final Enterococcus Faecium - Vre Complete Laboratory Tests 01/05/17 03:10: White Blood Count 6.1, Red Blood Count 3.27L, Hemoglobin 9.1L, Hematocrit 29.4L , Mean Corpuscular Volume 90, Mean Corpuscular Hemoglobin 27.9, Mean Corpuscular Hemoglobin Concent 31.0L, Red Cell Distribution Width 15.7H, Platelet Count 259, Mean Platelet Volume 7.0, Neutrophils (%) (Auto) 58.2, Lymphocytes (%) (Auto) 27.6, Monocytes (%) (Auto) 12.2H, Eosinophils (%) (Auto) 1.3, Basophils (%) (Auto) 0.8, Sodium Level 141, Potassium Level 3.4, Chloride Level 99, Carbon Dioxide Level 31H, Anion Gap 11, Blood Urea Nitrogen 8, Creatinine 0.4L, Estimat Glomerular Filtration Rate , Glucose Level 139H, Calcium Level 8.6, Phosphorus Level 2.5, Magnesium Level 1.7, Total Bilirubin < 0.2, Aspartate Amino Transf (AST/SGOT) 15, Alanine Aminotransferase (ALT/SGPT) 6 , Alkaline Phosphatase 97, Total Protein 6.9, Albumin 2.5L, Globulin 4.4, Albumin/Globulin Ratio 0.5L Current Medications Medications (Trade) Dose Ordered Sig/Dorie Route PRN Reason Start Time Stop Time Status Last Admin Dose Admin Acetaminophen (Tylenol) 650 mg Q4H PRN ORAL Mild Pain (Pain Scale 1-3) 01/02/17 16:15 02/01/17 16:14 Albuterol/ Ipratropium (DuoNeb 0.5-3(2.5)mg/3ml) 3 ml Q4H PRN HHN Shortness of Breath 01/02/17 16:15 01/07/17 16:14 Bisacodyl (Dulcolax) 10 mg DAILYPRN PRN RECTAL Constipation 01/02/17 16:15 02/01/17 16:14 Ceftriaxone Sodium 1 gm/ Dextrose 50 ml @ 100 mls/hr Q24H IVPB 01/05/17 16:00 01/12/17 15:59 Dextrose (Dextrose 50%) STAT PRN IV Hypoglycemia 01/02/17 16:15 02/01/17 16:14 Docusate Sodium (Colace) 100 mg TWICE A DAY NG 01/05/17 09:00 02/04/17 08:59 01/05/17 09:22 Heparin Sodium (Porcine) (Heparin 5000 units/ml) 5,000 units EVERY 12 HOURS SUBQ 01/02/17 21:00 02/01/17 20:59 01/05/17 09:23 Insulin Aspart (NovoLOG) Q6HR SUBQ 01/03/17 00:00 02/01/17 20:59 01/05/17 12:11 Ipratropium [place] (Atrovent) 500 mcg Q6HRT HHN 01/02/17 17:00 01/07/17 16:59 01/05/17 12:59 Lacosamide (Vimpat) 100 mg EVERY 12 HOURS ORAL 01/02/17 21:00 02/01/17 20:59 01/05/17 09:22 Levetiracetam (Keppra) 1,500 mg BID GT 01/02/17 18:00 02/01/17 17:59 01/05/17 09:22 Magnesium Hydroxide (Mom) 30 ml HSPRN PRN ORAL Constipation 01/02/17 16:15 02/01/17 16:14 Metoprolol Tartrate (Lopressor) 25 mg Q12HR PEG 01/04/17 21:00 02/03/17 20:59 01/05/17 09:22 Ondansetron HCl (Zofran) 4 mg Q6H PRN IVP Nausea & Vomiting 01/02/17 16:15 02/01/17 16:14 Pantoprazole (Protonix) 40 mg DAILY ORAL 01/03/17 09:00 02/02/17 08:59 01/05/17 09:22 Polyethylene Glycol (Miralax) 17 gm DAILYPRN PRN GT Constipation 01/02/17 17:00 02/01/17 16:59 Valproic Acid (Depakene) 500 mg Q8HR GT 01/02/17 22:00 02/01/17 21:59 01/05/17 13:19 BAM SCHAEFFER Jan 05, 2017 15:25
[2017-01-05 16:00] VITALS: BP 117/59
[2017-01-05] MEDS: cefTRIAXone 1 GM in D5W 50 ML IVPB SCH (17:04)
--- NOTE | 2017-01-05 17:14 | Cardiac Electrophysiology PN ---
Assessment/Plan Assessment/Plan 1. Atrial fibrillation with rapid ventricular response last night again up to 160s. Converted to sinus rhythm, continue Lopressor 25 bid 2. Coffee-ground emesis. The patient underwent esophagogastroduodenoscopy by Dr. Tony that showed gastritis. 3. Respiratory failure, status post tracheostomy. 4. Dysphagia, status post percutaneous endoscopic gastrostomy placement. 5. Sacral decubitus. IV antibiotics per Dr. Ocampo. DW RN Subjective Subjective Comfortable in NAD. Nonverbal. Trach to T tube. No arrhythmias overnight. Objective Last 24 Hour Vital Signs Date Time Temp Pulse Resp B/P (MAP) Pulse Ox O2 Delivery O2 Flow Rate FiO2 01/05/17 16:00 28 01/05/17 16:00 84 01/05/17 16:00 97.9 84 19 117/59 100 T-piece 01/05/17 12:57 83 20 100 T-piece 6.0 01/05/17 12:50 28 01/05/17 12:50 100 T-piece 6.0 01/05/17 12:50 80 18 100 Trach Collar 6.0 01/05/17 12:50 T-piece 6.0 01/05/17 12:03 80 01/05/17 12:03 28 01/05/17 12:03 97.8 80 20 112/61 100 T-piece 01/05/17 09:22 84 114/56 01/05/17 08:00 84 01/05/17 08:00 01/05/17 08:00 98.3 84 20 114/56 100 T-piece 01/05/17 06:53 100 T-piece 6.0 01/05/17 06:53 T-piece 6.0 01/05/17 06:53 81 20 100 T-piece 6.0 01/05/17 06:48 83 18 100 Trach Collar 6.0 01/05/17 06:48 01/05/17 04:00 97.5 69 19 110/49 100 T-piece 01/05/17 04:00 01/05/17 04:00 77 01/05/17 01:14 74 20 100 T-piece 6.0 01/05/17 01:13 T-piece 6.0 01/05/17 01:13 69 20 100 Trach Collar 6.0 28 01/05/17 01:13 100 T-piece 6.0 28 01/05/17 00:00 69 01/05/17 00:00 97.9 68 20 110/55 100 T-piece 28 01/05/17 00:00 28 01/04/17 21:03 91 133/65 01/04/17 20:00 92 01/04/17 20:00 28 01/04/17 19:51 97.5 91 20 133/65 98 T-piece 28 01/04/17 19:24 85 20 100 Trach Collar 6.0 28 01/04/17 19:21 76 20 100 Trach Collar 6.0 28 01/04/17 19:21 100 T-piece 6.0 28 01/04/17 19:21 T-piece 6.0 28 01/04/17 19:21 28 Intake and Output 01/05/17 01/06/17 19:00 07:00 Intake Total 550 ml Balance 550 ml Intake Free Water 100 ml Tube Feeding 450 ml Laboratory Tests Test 01/05/17 03:10 White Blood Count 6.1 K/UL (4.8-10.8) Red Blood Count 3.27 M/UL (4.70-6.10) L Hemoglobin 9.1 G/DL (14.2-18.0) L Hematocrit 29.4 % (42.0-52.0) L Mean Corpuscular Volume 90 FL (80-99) Mean Corpuscular Hemoglobin 27.9 PG (27.0-31.0) Mean Corpuscular Hemoglobin Concent 31.0 G/DL (32.0-36.0) L Red Cell Distribution Width 15.7 % (11.6-14.8) H Platelet Count 259 K/UL (150-450) Mean Platelet Volume 7.0 FL (6.5-10.1) Neutrophils (%) (Auto) 58.2 % (45.0-75.0) Lymphocytes (%) (Auto) 27.6 % (20.0-45.0) Monocytes (%) (Auto) 12.2 % (1.0-10.0) H Eosinophils (%) (Auto) 1.3 % (0.0-3.0) Basophils (%) (Auto) 0.8 % (0.0-2.0) Sodium Level 141 mEQ/L (135-145) Potassium Level 3.4 mEQ/L (3.4-4.9) Chloride Level 99 mEQ/L (98-107) Carbon Dioxide Level 31 mEQ/L (20-30) H Anion Gap 11 (5-15) Blood Urea Nitrogen 8 mg/dL (7-23) Creatinine 0.4 mg/dL (0.7-1.2) L Estimat Glomerular Filtration Rate mL/min (>60) Glucose Level 139 mg/dL (74-106) H Calcium Level 8.6 mg/dL (8.6-10.2) Phosphorus Level 2.5 mg/dL (2.5-4.8) Magnesium Level 1.7 mg/dL (1.7-2.5) Total Bilirubin < 0.2 mg/dL (0.0-1.2) Aspartate Amino Transf (AST/SGOT) 15 U/L (5-40) Alanine Aminotransferase (ALT/SGPT) 6 U/L (3-41) Alkaline Phosphatase 97 U/L (40-129) Total Protein 6.9 g/dL (6.6-8.7) Albumin 2.5 g/dL (3.5-5.2) L Globulin 4.4 g/dL Albumin/Globulin Ratio 0.5 (1.0-2.7) L Objective HEAD AND NECK: No JVD. Status post tracheostomy. LUNGS: Decreased breath sounds. CARDIOVASCULAR: Regular S1 and S2 with no gallop or murmur. ABDOMEN: Status post G-tube. EXTREMITIES: No pitting edema. ANA ROSA TAYLOR Jan 05, 2017 17:14
[2017-01-05] MEDS ORDERED: CEFTRIAXON1 GM/50 ML IV (17:49)
[2017-01-05 20:00] VITALS: BP 114/62
[2017-01-06] VITALS: BP 110/53
[2017-01-06] MEDS: NovoLOG Insulin Flexpen SUBQ SCH ×4 (00:27→17:06)
[2017-01-06] MEDS: Ipratropium 0.02% Inh Soln 2.5ml UD HHN SCH ×3 (02:08→13:15)
[2017-01-06 04:00] VITALS: BP 125/62
[2017-01-06 05:54] LABS: BASOPHILS % (AUTO) 0.6 % (0.0-2.0); LYMPHOCYTES % (AUTO) 28.3 % (20.0-45.0); MEAN CORPUSCULAR HEMOGLOBIN 27.6 PG (27.0-31.0); MEAN CORPUSCULAR HGB CONC 30.8 G/DL (32.0-36.0); MEAN CORPUSCULAR VOLUME 89 FL (80-99); MEAN PLATELET VOLUME 6.8 FL (6.5-10.1); MONOCYTES % (AUTO) 12.4 % (1.0-10.0); NEUTROPHILS % (AUTO) 57.8 % (45.0-75.0); PLATELET COUNT 266 K/UL (150-450); RED CELL DISTRIBUTION WIDTH 15.6 % (11.6-14.8); WHITE BLOOD COUNT 6.5 K/UL (4.8-10.8)
[2017-01-06] MEDS: Valproic Acid 250mg/5ml Liquid GT SCH ×2 (06:10→14:58)
[2017-01-06 06:23] LABS: ANION GAP 9 (5-15); CALCIUM 8.8 mg/dL (8.6-10.2); CARBON DIOXIDE 32 mEQ/L (20-30); CHLORIDE 101 mEQ/L (98-107); CREATININE 0.5 mg/dL (0.7-1.2); HEMOLYSIS 0; MAGNESIUM 1.7 mg/dL (1.7-2.5); PHOSPHORUS 2.5 mg/dL (2.5-4.8); POTASSIUM 3.8 mEQ/L (3.4-4.9); SODIUM 142 mEQ/L (135-145)
[2017-01-06 08:11] VITALS: BP 120/60
[2017-01-06] MEDS: Lacosamide 100 MG TABLET ORAL SCH (09:21)
[2017-01-06] MEDS: Metoprolol 25mg tab PEG SCH (09:21)
[2017-01-06] MEDS: Docusate 100mg/10ml Liq NG SCH ×2 (09:21→16:59)
[2017-01-06] MEDS: levETIRAcetam 500mg/5ml Liquid GT SCH ×2 (09:22→17:00)
[2017-01-06] MEDS: Heparin 5000 units/ml inj SUBQ SCH (09:23)
--- NOTE | 2017-01-06 10:42 | GI Progress Note ---
Assessment/Plan Problems: (1) Acute blood loss anemia ICD Codes: D62 - Acute posthemorrhagic anemia SNOMED: 455531654 (2) Diabetes mellitus ICD Codes: E11.9 - Type 2 diabetes mellitus without complications SNOMED: 82698453 (3) Advanced dementia ICD Codes: F03.90 - Unspecified dementia without behavioral disturbance SNOMED: 87067049 (4) G tube feedings ICD Codes: Z93.1 - Gastrostomy status SNOMED: 084950321, 731538291 (5) Coffee ground emesis ICD Codes: K92.0 - Hematemesis SNOMED: 493260770, 23236643 Status: stable, unchanged Status Narrative Discussed with Dr. Tony. Assessment/Plan Endoscopy Procedure Note Indication for Procedure: anemia, GIB Procedures Performed: EGD Operative Findings/Diagnosis: gastritis CHANEL TONY - Jan 04, 2017 11:54 Recommendations: GTFs per dietary fu bx and treat appropriately monitor H&H, prn transfusions ppi fu labs Subjective Subjective limited Objective Last 24 Hour Vital Signs Date Time Temp Pulse Resp B/P (MAP) Pulse Ox O2 Delivery O2 Flow Rate FiO2 01/06/17 09:57 70 01/06/17 09:21 67 120/60 01/06/17 08:11 98.1 67 18 120/60 100 T-piece 01/06/17 08:00 64 01/06/17 08:00 01/06/17 06:59 77 18 100 T-piece 6.0 01/06/17 06:50 28 01/06/17 06:50 T-piece 5.0 01/06/17 06:50 100 T-piece 5.0 01/06/17 06:50 85 18 100 Trach Collar 5.0 01/06/17 04:00 98.2 75 19 125/62 100 T-piece 5.0 01/06/17 04:00 5.0 01/06/17 04:00 84 01/06/17 02:15 81 18 100 T-piece 6.0 01/06/17 02:15 28 01/06/17 02:09 T-piece 5.0 01/06/17 02:09 99 T-piece 5.0 01/06/17 02:08 71 18 99 Trach Collar 6.0 01/06/17 00:00 68 01/06/17 00:00 98.1 66 18 110/53 100 T-piece 5.0 01/05/17 21:42 85 114/62 01/05/17 20:24 28 01/05/17 20:24 85 18 100 T-piece 6.0 28 01/05/17 20:15 99 T-piece 5.0 28 01/05/17 20:15 T-piece 5.0 28 01/05/17 20:13 70 18 99 Trach Collar 6.0 28 01/05/17 20:00 71 01/05/17 20:00 5.0 28 01/05/17 20:00 97.9 74 19 114/62 100 T-piece 5.0 01/05/17 16:00 28 01/05/17 16:00 84 01/05/17 16:00 97.9 84 19 117/59 100 T-piece 01/05/17 12:57 83 20 100 T-piece 6.0 01/05/17 12:50 28 01/05/17 12:50 100 T-piece 6.0 01/05/17 12:50 80 18 100 Trach Collar 6.0 01/05/17 12:50 T-piece 6.0 01/05/17 12:03 80 01/05/17 12:03 28 01/05/17 12:03 97.8 80 20 112/61 100 T-piece 28 Laboratory Tests Test 01/06/17 03:35 White Blood Count 6.5 K/UL (4.8-10.8) Red Blood Count 3.40 M/UL (4.70-6.10) L Hemoglobin 9.4 G/DL (14.2-18.0) L Hematocrit 30.4 % (42.0-52.0) L Mean Corpuscular Volume 89 FL (80-99) Mean Corpuscular Hemoglobin 27.6 PG (27.0-31.0) Mean Corpuscular Hemoglobin Concent 30.8 G/DL (32.0-36.0) L Red Cell Distribution Width 15.6 % (11.6-14.8) H Platelet Count 266 K/UL (150-450) Mean Platelet Volume 6.8 FL (6.5-10.1) Neutrophils (%) (Auto) 57.8 % (45.0-75.0) Lymphocytes (%) (Auto) 28.3 % (20.0-45.0) Monocytes (%) (Auto) 12.4 % (1.0-10.0) H Eosinophils (%) (Auto) 1.0 % (0.0-3.0) Basophils (%) (Auto) 0.6 % (0.0-2.0) Sodium Level 142 mEQ/L (135-145) Potassium Level 3.8 mEQ/L (3.4-4.9) Chloride Level 101 mEQ/L (98-107) Carbon Dioxide Level 32 mEQ/L (20-30) H Anion Gap 9 (5-15) Blood Urea Nitrogen 8 mg/dL (7-23) Creatinine 0.5 mg/dL (0.7-1.2) L Estimat Glomerular Filtration Rate mL/min (>60) Glucose Level 106 mg/dL (74-106) Calcium Level 8.8 mg/dL (8.6-10.2) Phosphorus Level 2.5 mg/dL (2.5-4.8) Magnesium Level 1.7 mg/dL (1.7-2.5) Height (Feet): 5 Height (Inches): 7.00 Weight (Pounds): 178 General Appearance: no apparent distress, alert Cardiovascular: normal rate Respiratory/Chest: other - mech vent Abdominal Exam: GT site - c/d/i Kalpana Oneil N.P. Jan 06, 2017 10:42
--- NOTE | 2017-01-06 10:54 | Pulmonology Progress Note ---
Assessment/Plan Problems: (1) Respiratory failure (2) Severe sepsis (3) Coffee ground emesis (4) Tracheostomy care (5) Alzheimer's dementia (6) G tube feedings (7) UTI (urinary tract infection) Respiratory: monitor respiratory rate, adjust FIO2 Cardiac: continue to monitor HR/BP Renal: F/U I&O, keep IV fluid, check electrolytes Infectious Disease: check cultures, continue antibiotics, other - on ceftrixone , afebrile, wbc wnl Gastrointestinal: continue feedings/current rate Endocrine: monitor blood sugar Neurologic: PRN Ativan, PRN Morphine Prophylaxis: Protonix Notes Reviewed: pharmacy operations coordinator, cardio Discussed with: nurses, consultants Subjective ROS Limited/Unobtainable: No Constitutional: Reports: no symptoms HEENT: Repors: no symptoms Allergies: Coded Allergies: No Known Allergies (Unverified , 01/02/17) Objective Last 24 Hour Vital Signs Date Time Temp Pulse Resp B/P (MAP) Pulse Ox O2 Delivery O2 Flow Rate FiO2 01/06/17 09:57 70 01/06/17 09:21 67 120/60 01/06/17 08:11 98.1 67 18 120/60 100 T-piece 01/06/17 08:00 64 01/06/17 08:00 01/06/17 06:59 77 18 100 T-piece 6.0 01/06/17 06:50 01/06/17 06:50 T-piece 5.0 01/06/17 06:50 100 T-piece 5.0 01/06/17 06:50 85 18 100 Trach Collar 5.0 01/06/17 04:00 98.2 75 19 125/62 100 T-piece 5.0 01/06/17 04:00 5.0 01/06/17 04:00 84 01/06/17 02:15 81 18 100 T-piece 6.0 01/06/17 02:15 01/06/17 02:09 T-piece 5.0 01/06/17 02:09 99 T-piece 5.0 01/06/17 02:08 71 18 99 Trach Collar 6.0 01/06/17 00:00 68 01/06/17 00:00 98.1 66 18 110/53 100 T-piece 5.0 01/05/17 21:42 85 114/62 01/05/17 20:24 28 01/05/17 20:24 85 18 100 T-piece 6.0 01/05/17 20:15 99 T-piece 5.0 01/05/17 20:15 T-piece 5.0 01/05/17 20:13 70 18 99 Trach Collar 6.0 01/05/17 20:00 71 01/05/17 20:00 5.0 01/05/17 20:00 97.9 74 19 114/62 100 T-piece 5.0 01/05/17 16:00 28 01/05/17 16:00 84 01/05/17 16:00 97.9 84 19 117/59 100 T-piece 01/05/17 12:57 83 20 100 T-piece 6.0 01/05/17 12:50 28 01/05/17 12:50 100 T-piece 6.0 01/05/17 12:50 80 18 100 Trach Collar 6.0 01/05/17 12:50 T-piece 6.0 01/05/17 12:03 80 01/05/17 12:03 28 01/05/17 12:03 97.8 80 20 112/61 100 T-piece 28 General Appearance: WD/WN HEENT: normocephalic, status post trach Respiratory/Chest: chest wall non-tender, lungs clear, normal breath sounds, chest wall tender Cardiovascular: normal peripheral pulses, normal rate Abdomen: normal bowel sounds, soft, non tender Extremities: no cyanosis Neurologic/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: 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, no motor/sensory deficits Lymphatic: no neck adenopathy Laboratory Tests 01/06/17 03:35: White Blood Count 6.5, Red Blood Count 3.40L, Hemoglobin 9.4L, Hematocrit 30.4L , Mean Corpuscular Volume 89, Mean Corpuscular Hemoglobin 27.6, Mean Corpuscular Hemoglobin Concent 30.8L, Red Cell Distribution Width 15.6H, Platelet Count 266, Mean Platelet Volume 6.8, Neutrophils (%) (Auto) 57.8, Lymphocytes (%) (Auto) 28.3, Monocytes (%) (Auto) 12.4H, Eosinophils (%) (Auto) 1.0, Basophils (%) (Auto) 0.6, Sodium Level 142, Potassium Level 3.8, Chloride Level 101, Carbon Dioxide Level 32H, Anion Gap 9, Blood Urea Nitrogen 8, Creatinine 0.5L, Estimat Glomerular Filtration Rate , Glucose Level 106, Calcium Level 8.8, Phosphorus Level 2.5, Magnesium Level 1.7 Current Medications Medications (Trade) Dose Ordered Sig/Dorie Route PRN Reason Start Time Stop Time Status Last Admin Dose Admin Acetaminophen (Tylenol) 650 mg Q4H PRN ORAL Mild Pain (Pain Scale 1-3) 01/02/17 16:15 02/01/17 16:14 Albuterol/ Ipratropium (DuoNeb 0.5-3(2.5)mg/3ml) 3 ml Q4H PRN HHN Shortness of Breath 01/02/17 16:15 01/07/17 16:14 Bisacodyl (Dulcolax) 10 mg DAILYPRN PRN RECTAL Constipation 01/02/17 16:15 02/01/17 16:14 Ceftriaxone Sodium 1 gm/ Dextrose 50 ml @ 100 mls/hr Q24H IVPB 01/05/17 16:00 01/12/17 15:59 01/05/17 17:04 Dextrose (Dextrose 50%) STAT PRN IV Hypoglycemia 01/02/17 16:15 02/01/17 16:14 Docusate Sodium (Colace) 100 mg TWICE A DAY NG 01/05/17 09:00 02/04/17 08:59 01/06/17 09:21 Heparin Sodium (Porcine) (Heparin 5000 units/ml) 5,000 units EVERY 12 HOURS SUBQ 01/02/17 21:00 02/01/17 20:59 01/06/17 09:23 Insulin Aspart (NovoLOG) Q6HR SUBQ 01/03/17 00:00 02/01/17 20:59 01/06/17 06:10 Ipratropium [place] (Atrovent) 500 mcg Q6HRT HHN 01/02/17 17:00 01/07/17 16:59 01/06/17 06:50 Lacosamide (Vimpat) 100 mg EVERY 12 HOURS ORAL 01/02/17 21:00 02/01/17 20:59 01/06/17 09:21 Levetiracetam (Keppra) 1,500 mg BID GT 01/02/17 18:00 02/01/17 17:59 01/06/17 09:22 Magnesium Hydroxide (Mom) 30 ml HSPRN PRN ORAL Constipation 01/02/17 16:15 02/01/17 16:14 Metoprolol Tartrate (Lopressor) 25 mg Q12HR PEG 01/04/17 21:00 02/03/17 20:59 01/06/17 09:21 Ondansetron HCl (Zofran) 4 mg Q6H PRN IVP Nausea & Vomiting 01/02/17 16:15 02/01/17 16:14 Pantoprazole (Protonix) 40 mg DAILY ORAL 01/03/17 09:00 02/02/17 08:59 01/06/17 09:21 Polyethylene Glycol (Miralax) 17 gm DAILYPRN PRN GT Constipation 01/02/17 17:00 02/01/17 16:59 Valproic Acid (Depakene) 500 mg Q8HR GT 01/02/17 22:00 02/01/17 21:59 01/06/17 06:10 BAM SCHAEFFER Jan 06, 2017 10:54
[2017-01-06 11:28] VITALS: BP 117/58
[2017-01-06 16:00] VITALS: BP 131/66
--- NOTE | 2017-01-06 16:13 | Cardiac Electrophysiology PN ---
Assessment/Plan Assessment/Plan 1. Atrial fibrillation with rapid ventricular response. Converted to sinus rhythm, continue Lopressor 25 bid 2. Coffee-ground emesis. S/P esophagogastroduodenoscopy by Dr. Tony that showed gastritis. 3. Respiratory failure, status post tracheostomy. 4. Dysphagia, status post percutaneous endoscopic gastrostomy placement. 5. Sacral decubitus. IV antibiotics per Dr. Ocampo. DW RN Subjective Subjective Comfortable in NAD. Nonverbal. Trach to T tube. No arrhythmias. RNA t bedside. DC planning today. Objective Last 24 Hour Vital Signs Date Time Temp Pulse Resp B/P (MAP) Pulse Ox O2 Delivery O2 Flow Rate FiO2 01/06/17 13:22 82 18 100 T-piece 6.0 01/06/17 13:12 28 01/06/17 13:12 80 18 100 Trach Collar 5.0 01/06/17 13:12 T-piece 6.0 01/06/17 13:12 100 T-piece 6.0 01/06/17 11:28 28 01/06/17 11:28 97.9 72 20 117/58 100 T-piece 01/06/17 09:57 70 01/06/17 09:21 67 120/60 01/06/17 08:11 98.1 67 18 120/60 100 T-piece 01/06/17 08:00 64 01/06/17 08:00 01/06/17 06:59 77 18 100 T-piece 6.0 01/06/17 06:50 01/06/17 06:50 T-piece 5.0 01/06/17 06:50 100 T-piece 5.0 01/06/17 06:50 85 18 100 Trach Collar 5.0 01/06/17 04:00 98.2 75 19 125/62 100 T-piece 5.0 01/06/17 04:00 5.0 01/06/17 04:00 84 01/06/17 02:15 81 18 100 T-piece 6.0 01/06/17 02:15 01/06/17 02:09 T-piece 5.0 01/06/17 02:09 99 T-piece 5.0 01/06/17 02:08 71 18 99 Trach Collar 6.0 28 01/06/17 00:00 68 01/06/17 00:00 98.1 66 18 110/53 100 T-piece 5.0 28 01/05/17 21:42 85 114/62 01/05/17 20:24 28 01/05/17 20:24 85 18 100 T-piece 6.0 28 01/05/17 20:15 99 T-piece 5.0 28 01/05/17 20:15 T-piece 5.0 28 01/05/17 20:13 70 18 99 Trach Collar 6.0 28 01/05/17 20:00 71 01/05/17 20:00 5.0 28 01/05/17 20:00 97.9 74 19 114/62 100 T-piece 5.0 28 Laboratory Tests Test 01/06/17 03:35 White Blood Count 6.5 K/UL (4.8-10.8) Red Blood Count 3.40 M/UL (4.70-6.10) L Hemoglobin 9.4 G/DL (14.2-18.0) L Hematocrit 30.4 % (42.0-52.0) L Mean Corpuscular Volume 89 FL (80-99) Mean Corpuscular Hemoglobin 27.6 PG (27.0-31.0) Mean Corpuscular Hemoglobin Concent 30.8 G/DL (32.0-36.0) L Red Cell Distribution Width 15.6 % (11.6-14.8) H Platelet Count 266 K/UL (150-450) Mean Platelet Volume 6.8 FL (6.5-10.1) Neutrophils (%) (Auto) 57.8 % (45.0-75.0) Lymphocytes (%) (Auto) 28.3 % (20.0-45.0) Monocytes (%) (Auto) 12.4 % (1.0-10.0) H Eosinophils (%) (Auto) 1.0 % (0.0-3.0) Basophils (%) (Auto) 0.6 % (0.0-2.0) Sodium Level 142 mEQ/L (135-145) Potassium Level 3.8 mEQ/L (3.4-4.9) Chloride Level 101 mEQ/L (98-107) Carbon Dioxide Level 32 mEQ/L (20-30) H Anion Gap 9 (5-15) Blood Urea Nitrogen 8 mg/dL (7-23) Creatinine 0.5 mg/dL (0.7-1.2) L Estimat Glomerular Filtration Rate mL/min (>60) Glucose Level 106 mg/dL (74-106) Calcium Level 8.8 mg/dL (8.6-10.2) Phosphorus Level 2.5 mg/dL (2.5-4.8) Magnesium Level 1.7 mg/dL (1.7-2.5) Objective HEAD AND NECK: No JVD. Status post tracheostomy. LUNGS: Decreased breath sounds. CARDIOVASCULAR: Regular S1 and S2 with no gallop or murmur. ABDOMEN: Status post G-tube. EXTREMITIES: No pitting edema. ANA ROSA TAYLOR Jan 06, 2017 16:13
[2017-01-06] MEDS: cefTRIAXone 1 GM in D5W 50 ML IVPB SCH (16:57)
[2017-01-07] MEDS ORDERED: METOPROLOL TART25 MG ORAL (05:53)
--- NOTE | 2017-01-07 05:53 | Discharge Summary ---
Discharge Summary Hospital Course Date of Admission Jan 02, 2017 at 13:52 Date of Discharge Jan 06, 2017 at 17:40 Admitting Diagnosis Sepsis, Coffee ground emesis PHU FriasRuben Ramos is a 81 year old male who was admitted on Jan 02, 2017 at 13:52 for Sepsis,Coffee Ground Emesis Discharge Discharge Disposition Patient was discharged to Discharge Diagnoses: Travis Hinojosa M.D. Jan 07, 2017 05:53
== END 2017-01-06 17:40 | DRG 871 ==
LOC: EDBD 12:49 → EMR 13:41 → 2W 13:52 → EDBEDREQ 14:42
PROC: 0DJ08ZZ Inspection of Upper Intestinal Tract, Via Natural or Artificial Opening Endoscopic (ICD-10-PCS; principal; 2017-01-04 13:30)
DX: A41.59 Other Gram-negative sepsis (principal); R53.2 Functional quadriplegia; N17.9 Acute kidney failure, unspecified; K92.0 Hematemesis; L89.154 Pressure ulcer of sacral region, stage 4; J96.10 Chronic respiratory failure, unspecified whether with hypoxia or hypercapnia; N39.0 Urinary tract infection, site not specified; I50.9 Heart failure, unspecified; N12 Tubulo-interstitial nephritis, not specified as acute or chronic; D62 Acute posthemorrhagic anemia; R65.20 Severe sepsis without septic shock; E87.5 Hyperkalemia; I10 Essential (primary) hypertension; G40.909 Epilepsy, unspecified, not intractable, without status epilepticus; E11.9 Type 2 diabetes mellitus without complications; K29.70 Gastritis, unspecified, without bleeding; I48.91 Unspecified atrial fibrillation; R13.10 Dysphagia, unspecified; G30.9 Alzheimer's disease, unspecified; F02.80 Dementia in other diseases classified elsewhere, unspecified severity, without behavioral disturbance, psychotic disturbance, mood disturbance, and anxiety; Z93.1 Gastrostomy status; Z93.0 Tracheostomy status; Z79.899 Other long term (current) drug therapy; Z74.01 Bed confinement status
CPT/HCPCS: 36415; 71010; 80048; 80053; 80076; 80164; 80202; 81003; 82378; 82550; 82553; 82607; 82746; 82962; 83036; 83540; 83550; 83605; 83615; 83690; 83735; 83880; 84100; 84484; 85025; 85044; 85060; 85610; 85651; 85730; 86850; 86900; 86901; 87040; 87081; 87086; 87181; 93005; 93306; 94003; 94150; 94640; 94664; 94760; 99291; J1815; J7620

== ENCOUNTER 2017-02-02 01:45 | Inpatient (IN) | payer MEDICARE ==
[2017-02-02] VITALS (7 sets, daily range): BP systolic 110–149; BP diastolic 51–80
[~2017-02-02] VITALS: Ht 185.4 cm; Wt 77.1 kg
[~2017-02-02 01:45] MED LIST: ACETAMINOP160 MG/51 GT; AMIKACIN S500 MG/2 M INH; CEFTRIAXON1 GM/50 ML IV; COLACE100 MG/10 GT; COMBIVENT RESPIM4 GM IH; DEPAKENE250 MG/5 M GT; EPOGEN10000 UNIT SUBQ; FAMOTIDINE20 MG GT; FERROUS SU220 MG/53 GT; HEPARIN SO5000 UNIT2 SUBQ; HIBICLENS118 ML ORAL; LEVEMIR FL100 UNIT/2 SQ; LEVETIRACE100 MG/1 M GT; METOPROLOL TART25 MG ORAL; NORCO 5-325 TA1 EAC1 ORAL; NOVOLOG100 UNIT/3 SUBQ; POLYETHYLENE GL17 GM GT; VIMPAT100 MG GT; VITAMIN C250 MG GT; ZINC SULFATE220 M1 GT
[2017-02-02 02:23] LABS: APPEARANCE,URINE CLOUDY; KETONES,URINE NEGATIVE (NEGATIVE); LEUKOCYTE ESTERASE ,URINE 3+ (NEGATIVE); NITRITE,URINE NEGATIVE (NEGATIVE); PH,URINE 8 (4.5-8.0); PROTEIN,URINE 3+ (NEGATIVE); UROBILINOGEN,URINE NORMAL MG/DL (0.0-1.0)
--- NOTE | 2017-02-02 02:29 | Emergency Room Report ---
History of Present Illness General Chief Complaint: Fever Source: EMS Present Illness HPI Patient was sent from nursing facility with complaints of fever Here the patient has a productive cough Has a tracheostomy but is not ventilator-dependent Unknown regarding vomiting or diarrhea Patient himself is nonverbal There was no reports of any fall or trauma Symptoms ongoing since earlier this afternoon Allergies: Coded Allergies: No Known Allergies (Unverified , 01/02/17) Patient History Limited by: medical condition Past Medical History: see triage record Pertinent Family History: unable to obtain Reviewed Nursing Documentation: PMH: Agreed, PSxH: Agreed Nursing Documentation-PMH Hx Hypertension: Yes Hx Diabetes: Yes Hx Gastrointestinal Problems: Yes - G-tube Hx Cerebrovascular Accident: Yes Hx Seizures: Yes Review of Systems All Other Systems: limited - Other than the ones mentioned in the history of present illness all others are reviewed however they do stay limited due to the patient's mental status Physical Exam Vital Signs Date Time Temp Pulse Resp B/P (MAP) Pulse Ox O2 Delivery O2 Flow Rate FiO2 02/02/17 01:46 100.9 131 17 133/94 92 Room Air Sp02 EP Interpretation: reviewed, abnormal - Interpreted low at 92%, on cool mist blow-by patient is saturating at 95% which is normal General Appearance: mild distress - appears short breath Head: normocephalic, atraumatic Eyes: bilateral eye PERRL, bilateral eye EOMI ENT: normal pharynx Neck: supple, other - Tracheostomy in place Respiratory: crackles - Diffusely in both lower lobes Cardiovascular #1: no edema, tachycardia Gastrointestinal: soft, no mass Musculoskeletal: other - Patient is chronically debilitated does not move extremities Neurologic: responsive - To physical stimuli, otherwise decreased GCS Skin: other - ulcers Lymphatic: no adenopathy Medical Decision Making Diagnostic Impression: Primary Impression: Tracheostomy in place Additional Impressions: Decubitus ulcer of sacral region, stage 4 UTI (urinary tract infection) uri ER Course Patient is a fairly complex patient with multiple differential to consideration including but not limited to cardiac cardiopulmonary and vascular emergencies Patient's lactic acid is elevated patient presents with a fever there is concern for obvious sepsis however patient's blood pressure is appropriate no signs of any severe sepsis patient was provided with IV hydration and antibiotics And requires further inpatient care Labs Test 02/02/17 01:13 02/02/17 02:15 Urine Color Yellow Urine Appearance Cloudy Urine pH 8 (4.5-8.0) Urine Specific [place] 1.015 (1.005-1.035) Urine Protein 3+ (NEGATIVE) Urine Glucose (UA) Negative (NEGATIVE) Urine Ketones Negative (NEGATIVE) Urine Occult Blood 4+ (NEGATIVE) Urine Nitrite Negative (NEGATIVE) Urine Bilirubin Negative (NEGATIVE) Urine Urobilinogen Normal MG/DL (0.0-1.0) Urine Leukocyte Esterase 3+ (NEGATIVE) Urine RBC 15-20 /HPF (0 - 0) Urine WBC 40-60 /HPF (0 - 0) Urine Squamous Epithelial Cells Occasional /LPF Urine Amorphous Sediment Many /LPF (NONE) Urine Bacteria Many /HPF (NONE) White Blood Count 12.2 K/UL (4.8-10.8) Red Blood Count 4.19 M/UL (4.70-6.10) Hemoglobin 12.0 G/DL (14.2-18.0) Hematocrit 37.1 % (42.0-52.0) Mean Corpuscular Volume 89 FL (80-99) Mean Corpuscular Hemoglobin 28.7 PG (27.0-31.0) Mean Corpuscular Hemoglobin Concent 32.4 G/DL (32.0-36.0) Red Cell Distribution Width 15.6 % (11.6-14.8) Platelet Count 318 K/UL (150-450) Mean Platelet Volume 8.1 FL (6.5-10.1) Neutrophils (%) (Auto) 79.0 % (45.0-75.0) Lymphocytes (%) (Auto) 12.2 % (20.0-45.0) Monocytes (%) (Auto) 7.5 % (1.0-10.0) Eosinophils (%) (Auto) 0.9 % (0.0-3.0) Basophils (%) (Auto) 0.5 % (0.0-2.0) Sodium Level 134 MMOL/L (136-145) Potassium Level 4.6 MMOL/L (3.5-5.1) Chloride Level 96 MMOL/L (98-107) Carbon Dioxide Level 31 MMOL/L (21-32) Anion Gap 7 mmol/L (5-15) Blood Urea Nitrogen 21 mg/dL (7-18) Creatinine 0.9 MG/DL (0.55-1.30) Estimat Glomerular Filtration Rate mL/min (>60) Glucose Level 225 MG/DL (74-106) Lactic Acid Level 3.10 mmol/L (0.66-2.22) Calcium Level 10.1 MG/DL (8.5-10.1) Total Bilirubin 0.2 MG/DL (0.2-1.0) Aspartate Amino Transf (AST/SGOT) 13 U/L (15-37) Alanine Aminotransferase (ALT/SGPT) 13 U/L (12-78) Alkaline Phosphatase 169 U/L (46-116) Total Creatine Kinase 75 U/L (26-308) Creatine Kinase MB 0.4 NG/ML (0.0-3.6) Creatine Kinase MB Relative Index 0.5 Troponin I 0.007 ng/mL (0.000-0.056) Pro-B-Type Natriuretic Peptide 345 pg/mL (0-125) Total Protein 9.4 G/DL (6.4-8.2) Albumin 2.6 G/DL (3.4-5.0) Globulin 6.8 g/dL Albumin/Globulin Ratio 0.4 (1.0-2.7) Lipase 99 U/L (73-393) Rhythm Strip Diag. Results EP Interpretation: yes Rate: 78 Rhythm: NSR, no PVC's, no ectopy Chest X-Ray Diagnostic Results Chest X-Ray Diagnostic Results : Chest X-Ray Ordered: Yes # of Views/Limited/Complete: 1 View Indication: Chest Pain EP Interpretation: Yes Interpretation: no consolidation, no effusion, no pneumothorax, other - mild pulmonary congest Impression: No acute disease Electronically Signed by: Carlyn James DO Last Vital Signs Date Time Temp Pulse Resp B/P (MAP) Pulse Ox O2 Delivery O2 Flow Rate FiO2 02/02/17 01:46 100.9 131 17 133/94 92 Room Air Status: improved Disposition: ADMITTED INPATIENT Condition: Serious CARLYN JAMES D.O. Feb 02, 2017 02:29
[2017-02-02 02:48] LABS: RBC,URINE 15-20 /HPF (0 - 0); SQUAMOUS EPITHELIAL CELL,UR OCCASIONAL /LPF (NONE/OCC); WBC,URINE 40-60 /HPF (0 - 0)
[2017-02-02 02:48] LABS: BASOPHILS % (AUTO) 0.5 % (0.0-2.0); EOSINOPHILS % (AUTO) 0.9 % (0.0-3.0); LYMPHOCYTES % (AUTO) 12.2 % (20.0-45.0); MEAN CORPUSCULAR HEMOGLOBIN 28.7 PG (27.0-31.0); MEAN CORPUSCULAR HGB CONC 32.4 G/DL (32.0-36.0); MEAN CORPUSCULAR VOLUME 89 FL (80-99); MEAN PLATELET VOLUME 8.1 FL (6.5-10.1); MONOCYTES % (AUTO) 7.5 % (1.0-10.0); PLATELET COUNT 318 K/UL (150-450); RED BLOOD COUNT 4.19 M/UL (4.70-6.10); RED CELL DISTRIBUTION WIDTH 15.6 % (11.6-14.8); WHITE BLOOD COUNT 12.2 K/UL (4.8-10.8)
[2017-02-02 02:49] LABS: AMORPHOUS SEDIMENT,UR MANY /LPF; BACTERIA,URINE MANY /HPF
[2017-02-02 03:10] LABS: REFLEX LACTIC ACID YES OR NO YES
[2017-02-02 03:13] LABS: ALANINE AMINOTRANSFERASE 13 U/L (12-78); ALBUMIN/GLOBULIN RATIO 0.4 (1.0-2.7); ANION GAP 7 mmol/L (5-15); ASPARTATE AMINO TRANSFERASE 13 U/L (15-37); CALCIUM 10.1 MG/DL (8.5-10.1); CARBON DIOXIDE 31 MMOL/L (21-32); CHLORIDE 96 MMOL/L (98-107); CKMB 0.4 NG/ML (0.0-3.6); CREATININE 0.9 MG/DL (0.55-1.30); LIPASE 99 U/L (73-393); POTASSIUM 4.6 MMOL/L (3.5-5.1); SODIUM 134 MMOL/L (136-145); TOTAL PROTEIN 9.4 G/DL (6.4-8.2)
[2017-02-02] MEDS ORDERED: Zosyn 3.375gm inj ONE (03:38)
[2017-02-02] MEDS ORDERED: Piperacillin/Tazobactam 3.375 GM in NS 110 ML IVPB ONE (03:45)
[2017-02-02] MEDS ORDERED: MIRALAX17 G2 ORAL (05:14)
[2017-02-02] MEDS ORDERED: DEPAKOTE250 MG PO (05:14)
[2017-02-02] MEDS ORDERED: PROTONIX40 MG ORAL (05:14)
[2017-02-02] MEDS ORDERED: KEPPRA500 M4 ORAL (05:14)
[2017-02-02] MEDS ORDERED: DUONEB 0.5-3(2.53 ML HHN (05:14)
[2017-02-02] MEDS ORDERED: NOVOLOG100 UNIT/3 SUBQ (05:14)
[2017-02-02] MEDS ORDERED: ZOFRAN4 M3 ORAL (05:14)
[2017-02-02] MEDS ORDERED: COLACE100 MG ORAL (05:14)
[2017-02-02] MEDS ORDERED: LORazepam Inj 2mg/ml 1ml IV PRN (12:15)
[2017-02-02] MEDS ORDERED: Morphine Sulfate 4mg/ml Inj IVP PRN (12:15)
[2017-02-02] MEDS ORDERED: Albuterol/Ipratropium 3ml neb HHN PRN (12:15)
[2017-02-02] MEDS ORDERED: Miralax 17gm pkt ORAL PRN (12:15)
--- NOTE | 2017-02-02 12:37 | Diagnostic Imaging Report ---
Indication: Dyspnea Comparison: 01/02/17 A single view chest radiograph was obtained. Findings: No definite infiltrate or pulmonary vascular congestion identified. The heart is normal in size. Tracheostomy noted. Right hemidiaphragm is elevated. The aorta is mildly enlarged consistent with atherosclerotic vascular disease. The bones are osteopenic. Impression: No acute disease
[2017-02-02] MEDS ORDERED: Vancomycin 1.5 GM/D5W 250ML IVPB ONE (14:00)
--- NOTE | 2017-02-02 14:45 | Infectious Diseases Prog Note ---
Assessment/Plan Assessment/Plan Full consult dictated: A) 1) uti, sepsis, sirs, ? asp pna/hcap, congestion, ams, leukocytosis, fevers 2) pmh noted 3) allergies - negative P) 1) vancomycin and zosyn 2) check labs, uc, chest x-ray, bc 3) d/w Dr. Robles 4) thank you Subjective Allergies: Coded Allergies: No Known Allergies (Unverified , 01/02/17) Objective Vital Signs Last 24 Hour Vital Signs Date Time Temp Pulse Resp B/P (MAP) Pulse Ox O2 Delivery O2 Flow Rate FiO2 02/02/17 13:00 99 T-piece 8.0 35 02/02/17 13:00 T-piece 8.0 35 02/02/17 12:00 98.3 101 19 110/58 96 T-piece 02/02/17 08:00 112 02/02/17 08:00 97.5 111 20 142/77 99 Trach Collar 35 02/02/17 07:32 99 T-piece 8.0 35 02/02/17 07:30 T-piece 8.0 35 02/02/17 06:09 98.2 120 20 149/78 100 02/02/17 05:30 99.3 122 23 142/76 100 Trach Collar 10.0 35 02/02/17 05:15 10.0 35 02/02/17 05:14 99.3 122 23 142/76 100 Trach Collar 10.0 35 02/02/17 03:03 99.3 127 17 138/80 100 Trach Collar 10.0 35 02/02/17 02:00 134 17 Trach Collar 10.0 35 02/02/17 02:00 100 Trach Collar 10.0 35 02/02/17 01:46 100.9 131 17 133/94 92 Room Air Height (Feet): 6 Height (Inches): 1.00 Weight (Pounds): 170 Laboratory Tests Test 02/02/17 01:13 02/02/17 02:15 02/02/17 04:10 Urine Color Yellow Urine Appearance Cloudy Urine pH 8 (4.5-8.0) Urine Specific [place] 1.015 (1.005-1.035) Urine Protein 3+ (NEGATIVE) H Urine Glucose (UA) Negative (NEGATIVE) Urine Ketones Negative (NEGATIVE) Urine Occult Blood 4+ (NEGATIVE) H Urine Nitrite Negative (NEGATIVE) Urine Bilirubin Negative (NEGATIVE) Urine Urobilinogen Normal MG/DL (0.0-1.0) Urine Leukocyte Esterase 3+ (NEGATIVE) H Urine RBC 15-20 /HPF (0 - 0) H Urine WBC 40-60 /HPF (0 - 0) H Urine Squamous Epithelial Cells Occasional /LPF Urine Amorphous Sediment Many /LPF (NONE) H Urine Bacteria Many /HPF (NONE) H White Blood Count 12.2 K/UL (4.8-10.8) H Red Blood Count 4.19 M/UL (4.70-6.10) L Hemoglobin 12.0 G/DL (14.2-18.0) L Hematocrit 37.1 % (42.0-52.0) L Mean Corpuscular Volume 89 FL (80-99) Mean Corpuscular Hemoglobin 28.7 PG (27.0-31.0) Mean Corpuscular Hemoglobin Concent 32.4 G/DL (32.0-36.0) Red Cell Distribution Width 15.6 % (11.6-14.8) H Platelet Count 318 K/UL (150-450) Mean Platelet Volume 8.1 FL (6.5-10.1) Neutrophils (%) (Auto) 79.0 % (45.0-75.0) H Lymphocytes (%) (Auto) 12.2 % (20.0-45.0) L Monocytes (%) (Auto) 7.5 % (1.0-10.0) Eosinophils (%) (Auto) 0.9 % (0.0-3.0) Basophils (%) (Auto) 0.5 % (0.0-2.0) Sodium Level 134 MMOL/L (136-145) L Potassium Level 4.6 MMOL/L (3.5-5.1) Chloride Level 96 MMOL/L (98-107) L Carbon Dioxide Level 31 MMOL/L (21-32) Anion Gap 7 mmol/L (5-15) Blood Urea Nitrogen 21 mg/dL (7-18) H Creatinine 0.9 MG/DL (0.55-1.30) Estimat Glomerular Filtration Rate mL/min (>60) Glucose Level 225 MG/DL (74-106) H Lactic Acid Level 3.10 mmol/L (0.66-2.22) H 1.30 mmol/L (0.66-2.22) Calcium Level 10.1 MG/DL (8.5-10.1) Total Bilirubin 0.2 MG/DL (0.2-1.0) Aspartate Amino Transf (AST/SGOT) 13 U/L (15-37) L Alanine Aminotransferase (ALT/SGPT) 13 U/L (12-78) Alkaline Phosphatase 169 U/L (46-116) H Total Creatine Kinase 75 U/L (26-308) Creatine Kinase MB 0.4 NG/ML (0.0-3.6) Creatine Kinase MB Relative Index 0.5 Troponin I 0.007 ng/mL (0.000-0.056) Pro-B-Type Natriuretic Peptide 345 pg/mL (0-125) H Total Protein 9.4 G/DL (6.4-8.2) H Albumin 2.6 G/DL (3.4-5.0) L Globulin 6.8 g/dL Albumin/Globulin Ratio 0.4 (1.0-2.7) L Lipase 99 U/L (73-393) Current Medications Medications (Trade) Dose Ordered Sig/Dorie Route PRN Reason Start Time Stop Time Status Last Admin Dose Admin Acetaminophen (Tylenol) 650 mg Q4H PRN ORAL T>100.5 02/02/17 12:15 03/04/17 12:14 Albuterol/ Ipratropium (DuoNeb 0.5-3(2.5)mg/3ml) 3 ml Q4H PRN HHN Shortness of Breath 02/02/17 12:15 02/07/17 12:14 Dextrose (Dextrose 50%) STAT PRN IV Hypoglycemia 02/02/17 12:15 03/04/17 12:14 Divalproex Sodium (Depakote) 250 mg Q12HR ORAL 02/02/17 21:00 03/04/17 20:59 Heparin Sodium (Porcine) (Heparin 5000 units/ml) 5,000 units EVERY 12 HOURS SUBQ 02/02/17 21:00 03/04/17 20:59 Insulin Aspart (NovoLOG) BEFORE MEALS AND HS SUBQ 02/02/17 16:30 03/04/17 16:29 Levetiracetam (Keppra) 500 mg EVERY 12 HOURS ORAL 02/02/17 21:00 03/04/17 20:59 Lorazepam (Ativan 2mg/ml 1ml) 2 mg Q2H PRN IV For Anxiety 02/02/17 12:15 02/09/17 12:14 Metoprolol Tartrate (Lopressor) 25 mg Q12HR ORAL 02/02/17 21:00 03/04/17 20:59 Morphine Sulfate (Morphine Sulfate) 4 mg Q4H PRN IVP Severe Pain (Pain Scale 7-10) 02/02/17 12:15 02/09/17 12:14 Ondansetron HCl (Zofran) 4 mg Q6H PRN IVP Nausea & Vomiting 02/02/17 12:15 03/04/17 12:14 Pantoprazole (Protonix) 40 mg DAILY IV 02/03/17 09:00 03/05/17 08:59 Piperacillin Sod/ Tazobactam Sod 4.5 gm/Dextrose 110 ml @ 27.5 mls/hr Q8HR@0000,0800,1600 IVPB 02/02/17 16:00 02/09/17 15:59 Polyethylene Glycol (Miralax) 17 gm DAILYPRN PRN ORAL Constipation 02/02/17 12:15 03/04/17 12:14 Sodium Chloride 1,000 ml @ 75 mls/hr [id number] IV 02/02/17 13:00 03/04/17 12:59 02/02/17 13:54 Vancomycin HCl (Vanco rx to dose) 1 ea DAILY PRN MISC Per rx protocol 02/02/17 12:15 03/04/17 12:14 Vancomycin HCl 1 gm/Dextrose 275 ml @ 183.3 mls/ hr Q24H IVPB 02/03/17 14:00 02/08/17 13:59 Vancomycin HCl/ Dextrose 250 ml @ 125 mls/hr ONCE ONCE IVPB 02/02/17 14:00 02/02/17 15:59 02/02/17 14:24 JENNIFER BEVERLY Feb 02, 2017 14:45
[2017-02-02] MEDS: Zosyn 4.5gm q8h **Extended infusion IVPB SCH ×4 (16:58→23:31)
[2017-02-02] MEDS: NovoLOG Insulin Flexpen SUBQ SCH ×2 (16:59→22:17)
[2017-02-02] MEDS ORDERED: Piperacillin/Tazobactam 3.375 GM in NS 110 ML IVPB SCH (18:00)
--- NOTE | 2017-02-02 18:58 | Wound Care Consultation ---
Wound Assessment Wound Assessment #1: Wound Number: 1 Wound Present on Admission: Yes New Wound: No Status Change of Wound: No Wound Location Body Site Modif: right Wound Location Body Site: heel Wound Type: pressure ulcer Elsa Test: Does not Elsa Pressure Ulcer Stage: Unstageable Wound Thickness: Full Thickness Wound Length: 3.0 Wound Width: 3.0 Wound Depth: utd Percent of Wound Black/Brown: 100 - dry Wound Drainage Description: Serosanguineous Wound Drainage Amount: Scant Wound Drainage Odor: None/Absent Tissue Surrounding Wound: scar tissue Wound Assessment #2: Wound Number: 2 Wound Present on Admission: Yes New Wound: No Status Change of Wound: No Wound Location Body Site Modif: right Wound Location Body Site: heel Wound Type: pressure ulcer Elsa Test: Does not Elsa Wound Thickness: Full Thickness - scar tissue Wound Length: 3.0 Wound Width: 4.5 Percent of Wound Olds/Red: 100 - pink Wound Drainage Amount: None Wound Drainage Odor: None/Absent Tissue Surrounding Wound: Intact Wound General Appearance: Asymptomatic, Open to air, Clean/Dry Wound Assessment #3: Wound Number: 3 Wound Present on Admission: Yes New Wound: No Status Change of Wound: No Wound Location Body Site Modif: mid Wound Location Body Site: sacral Wound Type: pressure ulcer Elsa Test: Does not Elsa Pressure Ulcer Stage: IV Wound Thickness: Full Thickness Wound Length: 5.5 Wound Width: 4.5 Wound Depth: 0.5 Percent of Wound Olds/Red: 100 Wound Drainage Description: Serosanguineous Wound Drainage Amount: Moderate Wound Drainage Odor: None/Absent Tissue Surrounding Wound: Macerated Wound General Appearance: Reddened, Draining, Muscle Visible Wound Assessment #4: Wound Number: 4 Wound Present on Admission: Yes New Wound: No Status Change of Wound: No Wound Location Body Site Modif: left, right, medial, lateral Wound Location Body Site: malleolus/ankle Wound Type: scar Elsa Test: Does not Elsa Wound Thickness: Full Thickness Wound Drainage Amount: None Wound Drainage Odor: None/Absent Tissue Surrounding Wound: Intact Wound General Appearance: Asymptomatic Wound Assessment #5: Wound Number: 5 Wound Present on Admission: Yes New Wound: No Status Change of Wound: No Wound Location Body Site Modif: right Wound Location Body Site: metatarsal head - 1st Wound Type: pressure ulcer Elsa Test: Does not Elsa Wound Thickness: Full Thickness - scar tissue with small dry scab Wound Length: 2.0 Wound Width: 2.0 Wound Depth: utd Percent of Wound Olds/Red: 100 Wound Drainage Amount: None Wound Drainage Odor: None/Absent Tissue Surrounding Wound: Intact Wound General Appearance: Asymptomatic, Open to air, Clean/Dry Wound Comment #1 Left heel full thickness scar tissue #2 Right heel unstageable pressure ulcer #3 Sacral stage IV pressure ulcer #4 Right 1st metatarsal head full thickness scar tissue with dry scab #5 Left and right medial and lateral malleolus with full thickness scar tissue Recommendation -Local wound care per protocol -Keep clean and dry -Turn and reposition -Optimize nutrition -Offload both heels -Heel protector on both heels -Low air loss mattress -Assess and f/u accordingly for any changes VARUN PURDY RN Feb 02, 2017 18:58
--- NOTE | 2017-02-02 22:00 | Consultation ---
DATE OF CONSULTATION: 02/02/2017 INFECTIOUS DISEASE CONSULTATION CONSULTING PHYSICIAN: Bear Ocampo M.D. ATTENDING PHYSICIAN: Guy Lima M.D. REQUESTING PHYSICIAN: I was asked by Dr. Robles to see this patient. REASON FOR CONSULTATION: Sepsis, UTI, and possible pneumonia. CHIEF COMPLAINT: The patient's chief complaint coming in to the hospital is fevers, sepsis, and leukocytosis. HISTORY OF PRESENT ILLNESS: This is an 81-year-old male, who is a very poor historian. The patient comes in to [facility] with fevers, tachycardia, and respiratory insufficiency. The patient is septic with elevated white count. He has altered mental status. The patient's workup shows UTI. Initial chest x-ray is negative. The patient will be started on broad-spectrum antibiotics, vancomycin and Zosyn. An Infectious Disease consultation was requested for antibiotic management. Case was discussed with Dr. Robles. Cultures are pending. MAR was noted. Orders noted. Notes and records were reviewed. PAST MEDICAL HISTORY: The patient's past medical history includes history of the following: The patient has a past medical history of trach. He is currently not on vent. He has a history of respiratory failure and history of decubitus. He has a history of diabetes and tracheostomy. He has history of decubitus and pressure ulcers. He has history of congestion. He has history of dysphagia and G-tube. He has history of Alzheimer's. He seems to have possible dementia. He is anemic. He has a history of weakness. He has a history of functional quadriplegia, history of UTIs, and atrial fibrillation. He does have a history of hypertension and seizures. MEDICATIONS: Upon reviewing the MAR, he is on the following medications. He is on vancomycin. He is on Protonix. He is on Depakote or divalproex. He is on levetiracetam. He is on metoprolol. He is on heparin, insulin, piperacillin and tazobactam, and vancomycin. He is on albuterol, acetaminophen, and morphine. He is on MiraLAX. He is on Zofran. He is on lorazepam. Vancomycin and Zosyn antibiotics. ALLERGIES: No known drug allergies. SOCIAL HISTORY: Negative for smoking, alcohol, and drug abuse. FAMILY HISTORY: Noncontributory per the records. No mention of exposure to tuberculosis or cancer. REVIEW OF SYSTEMS: CONSTITUTIONAL: The patient has generalized weakness and fatigue. He is poorly responsive. He has a trach. He has a Crump. He has no vent at this time. I do not believe he has a central line. HEAD AND NECK: He has a trach. CARDIAC: No pressors. GASTROINTESTINAL: No nausea, vomiting, or diarrhea. GENITOURINARY: He has a Crump. PULMONARY: Congestion and shortness of breath. SKIN: No new rash. NEUROLOGIC: No seizures. He has generalized weakness. Poorly responsive. SKIN: He has multiple wounds and skin breakdown. PHYSICAL EXAMINATION: VITAL SIGNS: T-max is 101.9 degrees. Heart rate is 101. It has been as high as 112 today, temperature now is 98.3 degrees, respiratory rate 19. It has been as high as high 23, blood pressure 110/58, and saturation 96%. He is on a T-piece, FiO2 35%. GENERAL: Poorly responsive and lethargic. HEAD AND NECK: Trach intact. Normocephalic. Eye exam, no icterus. NECK: Supple. HEART: Regular. No gallop or murmur. Occasionally irregular. LUNGS: Bilateral rhonchi. Possible rales. ABDOMEN: Soft. Positive bowel sounds. He has a G-tube, intact. SKIN: No new rash. His wounds were reviewed. Most pronounced is the sacrococcyx wound, which looks clean. It does not look to be infected. Other wounds do not look acutely infected at this time. MUSCULOSKELETAL: No effusion. EXTREMITIES: Legs are without cellulitis. PERIPHERAL VASCULAR: No cyanosis or gangrene. Possible contractures. RECTAL: Deferred. GENITOURINARY: He has a Crump. Urine is cloudy. LINES: Line sites without phlebitis. NEUROLOGIC: Poorly responsive. Generalized weakness. LABORATORY AND DIAGNOSTIC DATA: Laboratory data is as follows: White count 12.2 and hemoglobin 12.0. The patient's creatinine is 0.9 and sodium 134. UA had 3+ leukocyte esterase, 4 to 6 white blood cells, and many bacteria. Cultures are pending. Chest x-ray initially was negative. No acute disease. ASSESSMENT AND PLAN: 1. The patient has sepsis syndrome with systemic inflammatory response syndrome, fevers, elevated white count, respiratory failure, and elevated heart rate, most likely sepsis secondary to urinary tract infection with sepsis and also possible aspiration and healthcare-acquired pneumonia. The patient is at high risk for aspiration with a tracheostomy and altered mental status. Continue Zosyn and vancomycin. Check cultures, labs, and followup chest x-ray. Continue wound care protocol. I do not think the wounds are acutely infected at this time causing the underlying sepsis. 2. The patient has a tracheostomy. No ventilator. 3. Dysphagia, gastrostomy tube. 4. Weakness. 5. Altered mental status. 6. Alzheimer's. 7. Dementia. 8. Hypertension. 9. Diabetes. 10. Blood sugar and blood pressure control per primary. 11. Seizures. 12. Wound care protocol. 13. Quadriplegia. 14. Atrial fibrillation. 15. Hypokalemia history. 16. Urinary tract infection. 17. History of decubitus. 18. Aspiration risk. 19. 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 20. The patient has anemia. 21. Hyponatremia. 22. Allergies are negative. 23. Family history is noncontributory. 24. Social history is negative. 25. MAR was noted. 26. Case was discussed with RN. 27. Case was discussed with Dr. Robles. 28. PATRICIO care. 29. Continue treatment per primary consultants. Bear Ocampo M.D. DR: SHEILA JOB#: [id number] CC:
[2017-02-02] MEDS: Metoprolol 25mg tab ORAL SCH (22:14)
[2017-02-02] MEDS: Heparin 5000 units/ml inj SUBQ SCH (22:16)
[2017-02-03] VITALS: BP 115/58
--- NOTE | 2017-02-03 02:05 | History and Physical ---
History of Present Illness General Date patient seen: Feb 03, 2017 Time patient seen: 12:00 Reason for Hospitalization: Fever Present Illness HPI 81 year old male with pmh of HTN, DM2, pAfib, gastritis, seizure disorder, advanced dementia, s/p trach and PEG, recurrently infected sacral decubitus ulcers who presents from SNF with fever. Pt noted to have fever as well as productive cough as well as SOB. No reports of chest pain, abd pain, n/v, d/c. Pt is nonverbal and bed-bound at baseline. In ED, pt w/ fever to 100.9, tachycardic to 130s. U/A positive. CXR w/ questionable infiltrate. Pt also w/ lactic acidosis. He was given IVFs and zosyn in ED. Allergies: Coded Allergies: No Known Allergies (Unverified , 01/02/17) Medication History Scheduled Ascorbic Acid* (Vitamin C*), Unknown Dose GT DAILY, (Reported) Ceftriaxone Na/Dextrose,Iso (Ceftriaxone 1 Gm Piggyback), 1 GM IV Q24H Chlorhexidine Gluconate* (Hibiclens*), 5 OZ ORAL EVERY 12 HOURS, (Reported) Divalproex Sodium* (Depakote*), 250 MG PO Q12HR, (Reported) Docusate Sodium (Docusate Sodium), 100 MG GT TWICE A DAY, (Reported) Docusate Sodium* (Colace*), 100 MG ORAL TWICE A DAY, (Reported) Epoetin Dereje (Epogen), 10,000 UNIT SUBQ 3XW, (Reported) Famotidine (Famotidine), 20 MG GT TWICE A DAY, (Reported) Ferrous Sulfate (Ferrous Sulfate), 7.5 MG GT DAILY, (Reported) Heparin Sod (Porcine) (Heparin Sodium*), 5,000 UNITS SUBQ EVERY 12 HOURS, ( Reported) Insulin Aspart* (Novolog*), 0 SUBQ BEFORE MEALS AND HS, (Reported) Insulin Detemir (Levemir Flextouch), 42 UNIT SQ BID, (Reported) Lacosamide (Vimpat), 100 MG GT EVERY 12 HOURS, (Reported) Levetiracetam (Keppra), 500 MG ORAL EVERY 12 HOURS, (Reported) Levetiracetam* (Levetiracetam*), 1,500 MG GT BID, (Reported) Metoprolol Tartrate* (Metoprolol Tartrate*), 25 MG ORAL TWICE A DAY Pantoprazole* (Protonix*), 40 MG ORAL DAILY, (Reported) Polyethylene Glycol 3350* (Miralax*), 17 GM ORAL DAILY, (Reported) Valproate Sodium (Depakene), 500 MG GT EVERY 8 HOURS, (Reported) Zinc Sulfate (Zinc Sulfate*), 220 MG GT DAILY, (Reported) Scheduled PRN Acetaminophen* (Acetaminophen*), 320 MG GT Q6H PRN for Mild Pain/Temp > 100.5, ( Reported) Hydrocodone Bit/Acetaminophen 5-325* ([place] 5-325 Tablet*), 1 TAB ORAL Q6HR PRN for For Pain, (Reported) Ipratropium/Albuterol Sulfate (Combivent Respimat Inhal Antigo), 3 ML IH EVERY 6 HOURS PRN for Shortness of Breath, (Reported) Ondansetron* (Zofran*), 4 MG ORAL Q4HR PRN for Nausea & Vomiting, (Reported) Polyethylene Glycol 3350* (Polyethylene Glycol 3350*), 17 GM GT DAILY PRN for Constipation, (Reported) Miscellaneous Medications Insulin Aspart* (Novolog*), 0 SUBQ, (Reported) Ipratropium/Albuterol Sulfate (DuoNeb 0.5-3(2.5)mg/3ml), 3 ML HHN, (Reported) Patient History Healthcare decision maker Manuelito Ramos Resuscitation status Full Code Advanced Directive on File No Past Medical/Surgical History Past Medical/Surgical History: (1) Paroxysmal a-fib (2) Advanced dementia (3) HTN (hypertension) (4) Seizure disorder (5) Diabetes mellitus (6) S/P percutaneous endoscopic gastrostomy (PEG) tube placement (7) Tracheostomy in place (8) Decubitus ulcer of sacral region, stage 4 Family History Family History: Patient reports no known family medical history. Social History Social History: (1) lives at [facility] Review of Systems ROS Narrative Unable to obtain as pt non-verbal Physical Exam Physical Exam Narrative General: non-verbal, bed bound, occasionally opens eyes but not to command Head: normocephalic, without obvious abnormality, atraumatic Eyes: conjunctivae/corneas clear. PERRL Throat: lips, mucosa, and tongue normal. MMM Neck: supple, symmetrical, trachea midline, and no JVD, +tracheostomy c/d/i Lungs: +rhonchi b/l Heart: regular rate and rhythm, S1, S2 normal, no murmur, click, rub or gallop Abdomen: soft, non-tender, non-distended, bowel sounds normal; no masses or organomegaly Extremities: extremities normal, atraumatic, no cyanosis or edema Pulses: 2+ and symmetric Skin: skin color, texture, turgor normal; no rashes or lesions Neurologic: unable to assess as pt does not follow commands Last 24 Hour Vital Signs Date Time Temp Pulse Resp B/P (MAP) Pulse Ox O2 Delivery O2 Flow Rate FiO2 02/03/17 01:05 T-piece 8.0 35 02/03/17 01:05 99 T-piece 8.0 35 02/03/17 00:00 10.0 35 02/03/17 00:00 91 02/03/17 00:00 98.2 88 16 115/58 100 T-piece 88 02/02/17 22:14 87 113/60 02/02/17 20:00 86 02/02/17 20:00 10.0 35 02/02/17 20:00 97.7 87 16 113/60 100 Mechanical Ventilator 87 02/02/17 19:41 T-piece 8.0 35 02/02/17 19:41 99 T-piece 8.0 35 02/02/17 16:00 115 02/02/17 16:00 99.3 104 19 112/51 96 T-piece 35 02/02/17 13:00 99 T-piece 8.0 35 02/02/17 13:00 T-piece 8.0 35 02/02/17 12:00 98.3 101 19 110/58 96 T-piece 02/02/17 11:45 100 02/02/17 08:00 112 02/02/17 08:00 97.5 111 20 142/77 99 Trach Collar 35 02/02/17 07:32 99 T-piece 8.0 35 02/02/17 07:30 T-piece 8.0 35 02/02/17 06:09 98.2 120 20 149/78 100 02/02/17 05:30 99.3 122 23 142/76 100 Trach Collar 10.0 35 02/02/17 05:15 10.0 35 02/02/17 05:14 99.3 122 23 142/76 100 Trach Collar 10.0 35 02/02/17 03:03 99.3 127 17 138/80 100 Trach Collar 10.0 35 Laboratory Tests Test 02/02/17 02:15 02/02/17 04:10 White Blood Count 12.2 K/UL (4.8-10.8) H Red Blood Count 4.19 M/UL (4.70-6.10) L Hemoglobin 12.0 G/DL (14.2-18.0) L Hematocrit 37.1 % (42.0-52.0) L Mean Corpuscular Volume 89 FL (80-99) Mean Corpuscular Hemoglobin 28.7 PG (27.0-31.0) Mean Corpuscular Hemoglobin Concent 32.4 G/DL (32.0-36.0) Red Cell Distribution Width 15.6 % (11.6-14.8) H Platelet Count 318 K/UL (150-450) Mean Platelet Volume 8.1 FL (6.5-10.1) Neutrophils (%) (Auto) 79.0 % (45.0-75.0) H Lymphocytes (%) (Auto) 12.2 % (20.0-45.0) L Monocytes (%) (Auto) 7.5 % (1.0-10.0) Eosinophils (%) (Auto) 0.9 % (0.0-3.0) Basophils (%) (Auto) 0.5 % (0.0-2.0) Sodium Level 134 MMOL/L (136-145) L Potassium Level 4.6 MMOL/L (3.5-5.1) Chloride Level 96 MMOL/L (98-107) L Carbon Dioxide Level 31 MMOL/L (21-32) Anion Gap 7 mmol/L (5-15) Blood Urea Nitrogen 21 mg/dL (7-18) H Creatinine 0.9 MG/DL (0.55-1.30) Estimat Glomerular Filtration Rate mL/min (>60) Glucose Level 225 MG/DL (74-106) H Lactic Acid Level 3.10 mmol/L (0.66-2.22) H 1.30 mmol/L (0.66-2.22) Calcium Level 10.1 MG/DL (8.5-10.1) Total Bilirubin 0.2 MG/DL (0.2-1.0) Aspartate Amino Transf (AST/SGOT) 13 U/L (15-37) L Alanine Aminotransferase (ALT/SGPT) 13 U/L (12-78) Alkaline Phosphatase 169 U/L (46-116) H Total Creatine Kinase 75 U/L (26-308) Creatine Kinase MB 0.4 NG/ML (0.0-3.6) Creatine Kinase MB Relative Index 0.5 Troponin I 0.007 ng/mL (0.000-0.056) Pro-B-Type Natriuretic Peptide 345 pg/mL (0-125) H Total Protein 9.4 G/DL (6.4-8.2) H Albumin 2.6 G/DL (3.4-5.0) L Globulin 6.8 g/dL Albumin/Globulin Ratio 0.4 (1.0-2.7) L Lipase 99 U/L (73-393) Height (Feet): 6 Height (Inches): 1.00 Weight (Pounds): 170 Medications Current Medications Medications (Trade) Dose Ordered Sig/Dorie Route PRN Reason Start Time Stop Time Status Last Admin Dose Admin Acetaminophen (Tylenol) 650 mg Q4H PRN ORAL T>100.5 02/02/17 12:15 03/04/17 12:14 Albuterol/ Ipratropium (DuoNeb 0.5-3(2.5)mg/3ml) 3 ml Q4H PRN HHN Shortness of Breath 02/02/17 12:15 02/07/17 12:14 Dextrose (Dextrose 50%) STAT PRN IV Hypoglycemia 02/02/17 12:15 03/04/17 12:14 Divalproex Sodium (Depakote) 250 mg Q12HR ORAL 02/02/17 21:00 03/04/17 20:59 02/02/17 22:13 Heparin Sodium (Porcine) (Heparin 5000 units/ml) 5,000 units EVERY 12 HOURS SUBQ 02/02/17 21:00 03/04/17 20:59 02/02/17 22:16 Insulin Aspart (NovoLOG) BEFORE MEALS AND HS SUBQ 02/02/17 16:30 03/04/17 16:29 02/02/17 22:17 Levetiracetam (Keppra) 500 mg EVERY 12 HOURS ORAL 02/02/17 21:00 03/04/17 20:59 02/02/17 22:13 Lorazepam (Ativan 2mg/ml 1ml) 2 mg Q2H PRN IV For Anxiety 02/02/17 12:15 02/09/17 12:14 Metoprolol Tartrate (Lopressor) 25 mg Q12HR ORAL 02/02/17 21:00 03/04/17 20:59 02/02/17 22:14 Morphine Sulfate (Morphine Sulfate) 4 mg Q4H PRN IVP Severe Pain (Pain Scale 7-10) 02/02/17 12:15 02/09/17 12:14 Ondansetron HCl (Zofran) 4 mg Q6H PRN IVP Nausea & Vomiting 02/02/17 12:15 03/04/17 12:14 Pantoprazole (Protonix) 40 mg DAILY IV 02/03/17 09:00 03/05/17 08:59 Piperacillin Sod/ Tazobactam Sod 4.5 gm/Dextrose 110 ml @ 27.5 mls/hr Q8HR@0000,0800,1600 IVPB 02/02/17 16:00 02/03/17 23:59 02/02/17 23:31 Piperacillin Sod/ Tazobactam Sod 4.5 gm/Sodium Chloride 110 ml @ 27.5 mls/hr Q8HR@0000,0800,1600 IVPB 02/04/17 00:00 02/11/17 00:00 Polyethylene Glycol (Miralax) 17 gm DAILYPRN PRN ORAL Constipation 02/02/17 12:15 03/04/17 12:14 Sodium Chloride 1,000 ml @ 75 mls/hr [id number] IV 02/02/17 13:00 03/04/17 12:59 02/02/17 13:54 Vancomycin HCl (Vanco rx to dose) 1 ea DAILY PRN MISC Per rx protocol 02/02/17 12:15 03/04/17 12:14 Vancomycin HCl 1 gm/Dextrose 275 ml @ 183.3 mls/ hr Q24H IVPB 02/03/17 14:00 02/08/17 13:59 Assessment/Plan Problem List: (1) Severe sepsis ICD Codes: A41.9 - Sepsis, unspecified organism; R65.20 - Severe sepsis without septic shock SNOMED: 87438301 (2) Aspiration pneumonia ICD Codes: J69.0 - Pneumonitis due to inhalation of food and vomit SNOMED: 942981743 (3) UTI (urinary tract infection) ICD Codes: N39.0 - Urinary tract infection, site not specified SNOMED: 28995404 (4) Lactic acidemia ICD Codes: E87.2 - Acidosis SNOMED: 075225108 (5) Hyponatremia ICD Codes: E87.1 - Hypo-osmolality and hyponatremia SNOMED: 67645077 (6) Tracheostomy in place ICD Codes: Z93.0 - Tracheostomy status SNOMED: 548373220 (7) Diabetes mellitus ICD Codes: E11.9 - Type 2 diabetes mellitus without complications SNOMED: 41679712 (8) Seizure disorder ICD Codes: G40.909 - Epilepsy, unspecified, not intractable, without status epilepticus SNOMED: 642954128 (9) HTN (hypertension) ICD Codes: I10 - Essential (primary) hypertension SNOMED: 00260915 (10) Advanced dementia ICD Codes: F03.90 - Unspecified dementia without behavioral disturbance SNOMED: 27834964 (11) S/P percutaneous endoscopic gastrostomy (PEG) tube placement ICD Codes: Z93.1 - Gastrostomy status SNOMED: 809668902 (12) Functional quadriplegia ICD Codes: R53.2 - Functional quadriplegia SNOMED: 458722760177817 (13) Decubitus ulcer of sacral region, stage 4 ICD Codes: L89.154 - Pressure ulcer of sacral region, stage 4 SNOMED: 898573145, 572153879 (14) Decubitus ulcer, heel, right, unstageable ICD Codes: L89.610 - Pressure ulcer of right heel, unstageable SNOMED: 801895895 Status: stable Assessment/Plan Admit to PATRICIO Empiric vanco and daryl (02/02-) Pulm and ID consulted F/u cultures IVFs Trend lactate Trend BMP, CBC Cont SNF meds O2 via trach collar PRN for O2 sat>92% Suction frequently Nebs ATC and PRN Pain control, supportive care, bowel regimen Cont tube feeds DVT Prophylaxis: SCD, HSQ Code Status: Full Hospital Classification Declaration: Based on this initial evaluation, and depending on the patient's clinical course, I anticipate that this patient will require hospitalization for 3-4 days for severe sepsis, PNA, UTI and close respiratory/hemodynamic monitoring. Disposition: Once the patient is stable to leave the hospital, I anticipate the patient will likely be discharged to the following environment: back to SNF I spent 72 minutes on this patient's case, and 42 minutes were dedicated to counseling and/or care coordination. Discussed with patient/family, nursing staff, SW/CM, pulm, ID regarding clinical status, treatment course, and disposition planning. Time of note may not reflect time of encounter. Travis Hinojosa M.D. Feb 03, 2017 02:05
[2017-02-03 04:00] VITALS: BP 106/58
[2017-02-03 05:19] LABS: BASOPHILS % (AUTO) 0.5 % (0.0-2.0); EOSINOPHILS % (AUTO) 1.8 % (0.0-3.0); LYMPHOCYTES % (AUTO) 23.6 % (20.0-45.0); MEAN CORPUSCULAR HEMOGLOBIN 28.3 PG (27.0-31.0); MEAN CORPUSCULAR VOLUME 88 FL (80-99); MEAN PLATELET VOLUME 7.6 FL (6.5-10.1); MONOCYTES % (AUTO) 10.4 % (1.0-10.0); NEUTROPHILS % (AUTO) 63.6 % (45.0-75.0); PLATELET COUNT 254 K/UL (150-450); RED BLOOD COUNT 3.56 M/UL (4.70-6.10); RED CELL DISTRIBUTION WIDTH 15.8 % (11.6-14.8); WHITE BLOOD COUNT 9.7 K/UL (4.8-10.8)
[2017-02-03 05:50] LABS: PHOSPHORUS 3.3 MG/DL (2.5-4.9)
[2017-02-03] MEDS: Valproic Acid 250mg/5ml Liquid NG SCH ×3 (06:03→21:42)
[2017-02-03] MEDS: NovoLOG Insulin Flexpen SUBQ SCH ×4 (06:04→21:44)
[2017-02-03 06:15] LABS: ALANINE AMINOTRANSFERASE 10 U/L (12-78); ANION GAP 7 mmol/L (5-15); ASPARTATE AMINO TRANSFERASE 18 U/L (15-37); BILIRUBIN,DIRECT < 0.1 MG/DL (0.0-0.3); CALCIUM 9.4 MG/DL (8.5-10.1); CARBON DIOXIDE 30 MMOL/L (21-32); CHLORIDE 101 MMOL/L (98-107); CREATININE 0.8 MG/DL (0.55-1.30); POTASSIUM 3.8 MMOL/L (3.5-5.1); SODIUM 138 MMOL/L (136-145); TOTAL PROTEIN 7.7 G/DL (6.4-8.2)
[2017-02-03 08:00] VITALS: BP 108/59
[2017-02-03] MEDS: Zosyn 4.5gm q8h **Extended infusion IVPB SCH ×4 (08:21→15:24)
[2017-02-03] MEDS: Pantoprazole Inj IV SCH (09:31)
[2017-02-03] MEDS: levETIRAcetam 500mg/5ml Liquid GT SCH ×2 (09:31→17:13)
[2017-02-03] MEDS: Lacosamide 100 MG TABLET ORAL SCH ×2 (09:31→21:42)
[2017-02-03] MEDS: Metoprolol 25mg tab ORAL SCH ×2 (09:32→21:47)
[2017-02-03] MEDS: Heparin 5000 units/ml inj SUBQ SCH ×2 (09:33→21:43)
--- NOTE | 2017-02-03 11:38 | Consultation ---
History of Present Illness General Date patient seen: Feb 02, 2017 Chief Complaint: Fever Present Illness HPI 81 year old male with hx of dm, advanced Dementia, chronic trach, PEG, bed bound, on brink of life was sent from nursing facility with complaints of fever and a productive cough Patient himself is nonverbal. Looks chronically ill on total life support in retirement. Allergies: Coded Allergies: No Known Allergies (Unverified , 01/02/17) Medication History Scheduled Ascorbic Acid* (Vitamin C*), Unknown Dose GT DAILY, (Reported) Ceftriaxone Na/Dextrose,Iso (Ceftriaxone 1 Gm Piggyback), 1 GM IV Q24H Chlorhexidine Gluconate* (Hibiclens*), 5 OZ ORAL EVERY 12 HOURS, (Reported) Divalproex Sodium* (Depakote*), 250 MG PO Q12HR, (Reported) Docusate Sodium (Docusate Sodium), 100 MG GT TWICE A DAY, (Reported) Docusate Sodium* (Colace*), 100 MG ORAL TWICE A DAY, (Reported) Epoetin Dereje (Epogen), 10,000 UNIT SUBQ 3XW, (Reported) Famotidine (Famotidine), 20 MG GT TWICE A DAY, (Reported) Ferrous Sulfate (Ferrous Sulfate), 7.5 MG GT DAILY, (Reported) Heparin Sod (Porcine) (Heparin Sodium*), 5,000 UNITS SUBQ EVERY 12 HOURS, ( Reported) Insulin Aspart* (Novolog*), 0 SUBQ BEFORE MEALS AND HS, (Reported) Insulin Detemir (Levemir Flextouch), 42 UNIT SQ BID, (Reported) Lacosamide (Vimpat), 100 MG GT EVERY 12 HOURS, (Reported) Levetiracetam (Keppra), 500 MG ORAL EVERY 12 HOURS, (Reported) Levetiracetam* (Levetiracetam*), 1,500 MG GT BID, (Reported) Metoprolol Tartrate* (Metoprolol Tartrate*), 25 MG ORAL TWICE A DAY Pantoprazole* (Protonix*), 40 MG ORAL DAILY, (Reported) Polyethylene Glycol 3350* (Miralax*), 17 GM ORAL DAILY, (Reported) Valproate Sodium (Depakene), 500 MG GT EVERY 8 HOURS, (Reported) Zinc Sulfate (Zinc Sulfate*), 220 MG GT DAILY, (Reported) Scheduled PRN Acetaminophen* (Acetaminophen*), 320 MG GT Q6H PRN for Mild Pain/Temp > 100.5, ( Reported) Hydrocodone Bit/Acetaminophen 5-325* ([place] 5-325 Tablet*), 1 TAB ORAL Q6HR PRN for For Pain, (Reported) Ipratropium/Albuterol Sulfate (Combivent Respimat Inhal [place]), 3 ML IH EVERY 6 HOURS PRN for Shortness of Breath, (Reported) Ondansetron* (Zofran*), 4 MG ORAL Q4HR PRN for Nausea & Vomiting, (Reported) Polyethylene Glycol 3350* (Polyethylene Glycol 3350*), 17 GM GT DAILY PRN for Constipation, (Reported) Miscellaneous Medications Insulin Aspart* (Novolog*), 0 SUBQ, (Reported) Ipratropium/Albuterol Sulfate (DuoNeb 0.5-3(2.5)mg/3ml), 3 ML HHN, (Reported) Patient History Healthcare decision maker Mnauelito Ramos Resuscitation status Full Code Advanced Directive on File No Past Medical/Surgical History Past Medical/Surgical History: (1) Decubitus ulcer, heel, right, unstageable (2) Advanced dementia (3) HTN (hypertension) (4) Seizure disorder (5) Diabetes mellitus (6) Decubitus ulcer of sacral region, stage 4 Review of Systems All Other Systems: negative except mentioned in HPI Physical Exam General Appearance: WD/WN, cachetic Lines, tubes and drains: peripheral, PICC HEENT: normocephalic, atraumatic Neck: non-tender, normal alignment Respiratory/Chest: chest wall non-tender, lungs clear Breasts: no masses Cardiovascular/Chest: normal peripheral pulses, normal rate Abdomen: normal bowel sounds Genitourinary/Rectal: normal genital exam, heme negative stool Extremities: normal range of motion 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, normal mood/affect Last 24 Hour Vital Signs Date Time Temp Pulse Resp B/P (MAP) Pulse Ox O2 Delivery O2 Flow Rate FiO2 02/03/17 09:32 79 108/59 02/03/17 08:00 99.5 79 16 108/59 96 T-piece 35 02/03/17 08:00 10.0 35 02/03/17 07:25 78 02/03/17 06:52 99 T-piece 8.0 35 02/03/17 06:52 T-piece 8.0 35 02/03/17 04:00 98.6 88 18 106/58 100 T-piece 88 02/03/17 02:31 74 02/03/17 01:05 T-piece 8.0 35 02/03/17 01:05 99 T-piece 8.0 35 02/03/17 00:00 10.0 35 02/03/17 00:00 91 02/03/17 00:00 98.2 88 16 115/58 100 T-piece 88 02/02/17 22:14 87 113/60 02/02/17 20:00 86 02/02/17 20:00 10.0 35 02/02/17 20:00 97.7 87 16 113/60 100 Mechanical Ventilator 87 02/02/17 19:41 T-piece 8.0 35 02/02/17 19:41 99 T-piece 8.0 35 02/02/17 16:00 115 02/02/17 16:00 99.3 104 19 112/51 96 T-piece 35 02/02/17 13:00 99 T-piece 8.0 35 02/02/17 13:00 T-piece 8.0 35 02/02/17 12:00 98.3 101 19 110/58 96 T-piece 02/02/17 11:45 100 Intake and Output 02/03/17 02/04/17 19:00 07:00 Intake Total 425.0 ml Balance 425.0 ml Intake Free Water 50 ml IV Total 225.0 ml Tube Feeding 120 ml Other 30 ml Laboratory Tests Test 02/03/17 03:56 White Blood Count 9.7 K/UL (4.8-10.8) Red Blood Count 3.56 M/UL (4.70-6.10) L Hemoglobin 10.1 G/DL (14.2-18.0) L Hematocrit 31.5 % (42.0-52.0) L Mean Corpuscular Volume 88 FL (80-99) Mean Corpuscular Hemoglobin 28.3 PG (27.0-31.0) Mean Corpuscular Hemoglobin Concent 32.0 G/DL (32.0-36.0) Red Cell Distribution Width 15.8 % (11.6-14.8) H Platelet Count 254 K/UL (150-450) Mean Platelet Volume 7.6 FL (6.5-10.1) Neutrophils (%) (Auto) 63.6 % (45.0-75.0) Lymphocytes (%) (Auto) 23.6 % (20.0-45.0) Monocytes (%) (Auto) 10.4 % (1.0-10.0) H Eosinophils (%) (Auto) 1.8 % (0.0-3.0) Basophils (%) (Auto) 0.5 % (0.0-2.0) Sodium Level 138 MMOL/L (136-145) Potassium Level 3.8 MMOL/L (3.5-5.1) Chloride Level 101 MMOL/L (98-107) Carbon Dioxide Level 30 MMOL/L (21-32) Anion Gap 7 mmol/L (5-15) Blood Urea Nitrogen 16 mg/dL (7-18) Creatinine 0.8 MG/DL (0.55-1.30) Estimat Glomerular Filtration Rate mL/min (>60) Glucose Level 133 MG/DL (74-106) H Calcium Level 9.4 MG/DL (8.5-10.1) Phosphorus Level 3.3 MG/DL (2.5-4.9) Magnesium Level 2.0 MG/DL (1.8-2.4) Total Bilirubin 0.4 MG/DL (0.2-1.0) Direct Bilirubin < 0.1 MG/DL (0.0-0.3) Aspartate Amino Transf (AST/SGOT) 18 U/L (15-37) Alanine Aminotransferase (ALT/SGPT) 10 U/L (12-78) L Alkaline Phosphatase 138 U/L (46-116) H Total Protein 7.7 G/DL (6.4-8.2) Albumin 2.1 G/DL (3.4-5.0) L Valproic Acid (Depakene) Level 22 MCG/ML (50-100) L Height (Feet): 6 Height (Inches): 1.00 Weight (Pounds): 170 Medications Current Medications Medications (Trade) Dose Ordered Sig/Dorie Route PRN Reason Start Time Stop Time Status Last Admin Dose Admin Acetaminophen (Tylenol) 650 mg Q4H PRN ORAL T>100.5 10/17/17 12:15 03/04/17 12:14 Albuterol/ Ipratropium (DuoNeb 0.5-3(2.5)mg/3ml) 3 ml Q4H PRN HHN Shortness of Breath 02/02/17 12:15 02/07/17 12:14 Dextrose (Dextrose 50%) STAT PRN IV Hypoglycemia 02/02/17 12:15 03/04/17 12:14 Divalproex Sodium (Depakote) 250 mg Q12HR ORAL 02/02/17 21:00 03/04/17 20:59 02/03/17 09:32 Heparin Sodium (Porcine) (Heparin 5000 units/ml) 5,000 units EVERY 12 HOURS SUBQ 02/02/17 21:00 03/04/17 20:59 02/03/17 09:33 Insulin Aspart (NovoLOG) BEFORE MEALS AND HS SUBQ 02/02/17 16:30 03/04/17 16:29 02/03/17 06:04 Lacosamide (Vimpat) 100 mg EVERY 12 HOURS ORAL 02/03/17 09:00 03/05/17 08:59 02/03/17 09:31 Levetiracetam (Keppra) 1,500 mg BID GT 02/03/17 09:00 03/05/17 08:59 02/03/17 09:31 Lorazepam (Ativan 2mg/ml 1ml) 2 mg Q2H PRN IV For Anxiety 02/02/17 12:15 02/09/17 12:14 Metoprolol Tartrate (Lopressor) 25 mg Q12HR ORAL 02/02/17 21:00 03/04/17 20:59 02/03/17 09:32 Morphine Sulfate (Morphine Sulfate) 4 mg Q4H PRN IVP Severe Pain (Pain Scale 7-10) 02/02/17 12:15 02/09/17 12:14 Ondansetron HCl (Zofran) 4 mg Q6H PRN IVP Nausea & Vomiting 02/02/17 12:15 03/04/17 12:14 Pantoprazole (Protonix) 40 mg DAILY IV 02/03/17 09:00 03/05/17 08:59 02/03/17 09:31 Piperacillin Sod/ Tazobactam Sod 4.5 gm/Dextrose 110 ml @ 27.5 mls/hr Q8HR@0000,0800,1600 IVPB 02/02/17 16:00 02/03/17 23:59 02/03/17 08:21 Piperacillin Sod/ Tazobactam Sod 4.5 gm/Sodium Chloride 110 ml @ 27.5 mls/hr Q8HR@0000,0800,1600 IVPB 02/04/17 00:00 02/11/17 00:00 Polyethylene Glycol (Miralax) 17 gm DAILYPRN PRN ORAL Constipation 02/02/17 12:15 03/04/17 12:14 Sodium Chloride 1,000 ml @ 75 mls/hr [id number] IV 02/02/17 13:00 03/04/17 12:59 02/03/17 02:42 Valproic Acid (Depakene) 500 mg Q8HR NG 02/03/17 06:00 03/05/17 05:59 02/03/17 06:03 Vancomycin HCl (Vanco rx to dose) 1 ea DAILY PRN MISC Per rx protocol 02/02/17 12:15 03/04/17 12:14 Vancomycin HCl 1 gm/Dextrose 275 ml @ 183.3 mls/ hr Q24H IVPB 02/03/17 14:00 02/08/17 13:59 Assessment/Plan Problem List: (1) Aspiration pneumonia ICD Codes: J69.0 - Pneumonitis due to inhalation of food and vomit SNOMED: 570334825 (2) Severe sepsis ICD Codes: A41.9 - Sepsis, unspecified organism; R65.20 - Severe sepsis without septic shock SNOMED: 98001572 (3) Seizure disorder ICD Codes: G40.909 - Epilepsy, unspecified, not intractable, without status epilepticus SNOMED: 044951004 (4) Advanced dementia ICD Codes: F03.90 - Unspecified dementia without behavioral disturbance SNOMED: 92493293 (5) G tube feedings ICD Codes: Z93.1 - Gastrostomy status SNOMED: 570069115, 425065278 Respiratory: monitor respiratory rate, adjust FIO2, CXR Cardiac: continue to monitor HR/BP Renal: F/U I&O Infectious Disease: check cultures Gastrointestinal: continue feedings/current rate Endocrine: monitor blood sugar Hematologic: transfuse if hgb<8.5 Neurologic: PRN Ativan, PRN Morphine, keep patient comfortable Prophylaxis: Protonix Notes Reviewed: cardio, renal Discussed with: nurses, consultants, piano case and bench assembler BAM SCHAEFFER Feb 03, 2017 11:38
--- NOTE | 2017-02-03 11:39 | Pulmonology Progress Note ---
Assessment/Plan Problems: (1) Aspiration pneumonia (2) Severe sepsis (3) Seizure disorder (4) Advanced dementia (5) G tube feedings Respiratory: monitor respiratory rate Cardiac: continue to monitor HR/BP Renal: F/U I&O, check electrolytes Infectious Disease: check cultures, continue antibiotics Gastrointestinal: continue feedings/current rate Endocrine: monitor blood sugar Hematologic: monitor H/H, transfuse if hgb<8.5 Neurologic: PRN Ativan, keep patient comfortable Prophylaxis: Protonix, Heparin Notes Reviewed: cardio, renal Discussed with: nurses, consultants, case planner Subjective ROS Limited/Unobtainable: No Constitutional: Reports: no symptoms HEENT: Repors: no symptoms Respiratory: Reports: no symptoms Allergies: Coded Allergies: No Known Allergies (Unverified , 01/02/17) Objective Last 24 Hour Vital Signs Date Time Temp Pulse Resp B/P (MAP) Pulse Ox O2 Delivery O2 Flow Rate FiO2 02/03/17 09:32 79 108/59 02/03/17 08:00 99.5 79 16 108/59 96 T-piece 35 02/03/17 08:00 10.0 35 02/03/17 07:25 78 02/03/17 06:52 99 T-piece 8.0 35 02/03/17 06:52 T-piece 8.0 35 02/03/17 04:00 98.6 88 18 106/58 100 T-piece 88 02/03/17 02:31 74 02/03/17 01:05 T-piece 8.0 35 02/03/17 01:05 99 T-piece 8.0 35 02/03/17 00:00 10.0 35 02/03/17 00:00 91 02/03/17 00:00 98.2 88 16 115/58 100 T-piece 88 02/02/17 22:14 87 113/60 02/02/17 20:00 86 02/02/17 20:00 10.0 35 02/02/17 20:00 97.7 87 16 113/60 100 Mechanical Ventilator 87 02/02/17 19:41 T-piece 8.0 35 02/02/17 19:41 99 T-piece 8.0 35 02/02/17 16:00 115 02/02/17 16:00 99.3 104 19 112/51 96 T-piece 35 02/02/17 13:00 99 T-piece 8.0 35 02/02/17 13:00 T-piece 8.0 35 02/02/17 12:00 98.3 101 19 110/58 96 T-piece 02/02/17 11:45 100 Intake and Output 02/03/17 02/04/17 19:00 07:00 Intake Total 425.0 ml Balance 425.0 ml Intake Free Water 50 ml IV Total 225.0 ml Tube Feeding 120 ml Other 30 ml Objective still has lots of secretions General Appearance: WD/WN HEENT: normocephalic Respiratory/Chest: chest wall non-tender, accessory muscle use Cardiovascular: normal peripheral pulses, normal rate Abdomen: normal bowel sounds, soft, non tender Genitourinary: normal external genitalia Skin: no rash 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, no motor/sensory deficits Musculoskeletal: normal muscle bulk Microbiology Date/Time Source Procedure Growth Status 02/02/17 02:30 Blood Blood Culture - Preliminary NO GROWTH AFTER 24 HOURS Resulted 02/02/17 02:30 Blood Blood Culture - Preliminary NO GROWTH AFTER 24 HOURS Resulted 02/02/17 01:13 Urine,Clean Catch Urine Culture - Preliminary Gram Negative Bacillus 1 Resulted Laboratory Tests 02/03/17 03:56: White Blood Count 9.7, Red Blood Count 3.56L, Hemoglobin 10.1L, Hematocrit 31.5L , Mean Corpuscular Volume 88, Mean Corpuscular Hemoglobin 28.3, Mean Corpuscular Hemoglobin Concent 32.0, Red Cell Distribution Width 15.8H, Platelet Count 254, Mean Platelet Volume 7.6, Neutrophils (%) (Auto) 63.6, Lymphocytes (%) (Auto) 23.6, Monocytes (%) (Auto) 10.4H, Eosinophils (%) (Auto) 1.8, Basophils (%) (Auto) 0.5, Sodium Level 138, Potassium Level 3.8, Chloride Level 101, Carbon Dioxide Level 30, Anion Gap 7, Blood Urea Nitrogen 16, Creatinine 0.8, Estimat Glomerular Filtration Rate , Glucose Level 133H, Calcium Level 9.4, Phosphorus Level 3.3, Magnesium Level 2.0, Total Bilirubin 0.4, Direct Bilirubin < 0.1, Aspartate Amino Transf (AST/SGOT) 18, Alanine Aminotransferase (ALT/SGPT) 10L, Alkaline Phosphatase 138H, Total Protein 7.7, Albumin 2.1L, Valproic Acid (Depakene) Level 22L Current Medications Medications (Trade) Dose Ordered Sig/Dorie Route PRN Reason Start Time Stop Time Status Last Admin Dose Admin Acetaminophen (Tylenol) 650 mg Q4H PRN ORAL T>100.5 02/02/17 12:15 03/04/17 12:14 Albuterol/ Ipratropium (DuoNeb 0.5-3(2.5)mg/3ml) 3 ml Q4H PRN HHN Shortness of Breath 02/02/17 12:15 02/07/17 12:14 Dextrose (Dextrose 50%) STAT PRN IV Hypoglycemia 02/02/17 12:15 03/04/17 12:14 Divalproex Sodium (Depakote) 250 mg Q12HR ORAL 02/02/17 21:00 03/04/17 20:59 02/03/17 09:32 Heparin Sodium (Porcine) (Heparin 5000 units/ml) 5,000 units EVERY 12 HOURS SUBQ 02/02/17 21:00 03/04/17 20:59 02/03/17 09:33 Insulin Aspart (NovoLOG) BEFORE MEALS AND HS SUBQ 02/02/17 16:30 03/04/17 16:29 02/03/17 06:04 Lacosamide (Vimpat) 100 mg EVERY 12 HOURS ORAL 02/03/17 09:00 03/05/17 08:59 02/03/17 09:31 Levetiracetam (Keppra) 1,500 mg BID GT 02/03/17 09:00 03/05/17 08:59 02/03/17 09:31 Lorazepam (Ativan 2mg/ml 1ml) 2 mg Q2H PRN IV For Anxiety 02/02/17 12:15 02/09/17 12:14 Metoprolol Tartrate (Lopressor) 25 mg Q12HR ORAL 02/02/17 21:00 03/04/17 20:59 02/03/17 09:32 Morphine Sulfate (Morphine Sulfate) 4 mg Q4H PRN IVP Severe Pain (Pain Scale 7-10) 02/02/17 12:15 02/09/17 12:14 Ondansetron HCl (Zofran) 4 mg Q6H PRN IVP Nausea & Vomiting 10/17/17 12:15 03/04/17 12:14 Pantoprazole (Protonix) 40 mg DAILY IV 02/03/17 09:00 03/05/17 08:59 02/03/17 09:31 Piperacillin Sod/ Tazobactam Sod 4.5 gm/Dextrose 110 ml @ 27.5 mls/hr Q8HR@0000,0800,1600 IVPB 02/02/17 16:00 02/03/17 23:59 02/03/17 08:21 Piperacillin Sod/ Tazobactam Sod 4.5 gm/Sodium Chloride 110 ml @ 27.5 mls/hr Q8HR@0000,0800,1600 IVPB 02/04/17 00:00 02/11/17 00:00 Polyethylene Glycol (Miralax) 17 gm DAILYPRN PRN ORAL Constipation 02/02/17 12:15 03/04/17 12:14 Sodium Chloride 1,000 ml @ 75 mls/hr [id number] IV 02/02/17 13:00 03/04/17 12:59 02/03/17 02:42 Valproic Acid (Depakene) 500 mg Q8HR NG 02/03/17 06:00 03/05/17 05:59 02/03/17 06:03 Vancomycin HCl (Vanco rx to dose) 1 ea DAILY PRN MISC Per rx protocol 02/02/17 12:15 03/04/17 12:14 Vancomycin HCl 1 gm/Dextrose 275 ml @ 183.3 mls/ hr Q24H IVPB 02/03/17 14:00 02/08/17 13:59 BAM SCHAEFFER Feb 03, 2017 11:39
--- NOTE | 2017-02-03 11:55 | Diagnostic Imaging Report ---
Indication: Shortness of breath Technique: One view of the chest Comparison: 02/02/2017 Findings: There is atelectasis at the right lung base normal atelectasis at the left lung base. Lungs and pleural spaces are otherwise clear. Tracheostomy remains. The right hemidiaphragm is somewhat elevated, less so than on the previous study. Impression: Bilateral basilar atelectasis. No acute process otherwise
[2017-02-03 12:00] VITALS: BP 105/55
[2017-02-03] MEDS ORDERED: Vancomycin 1 GM in D5W 275 ML IVPB SCH (14:00)
--- NOTE | 2017-02-03 15:47 | Cardiology Report ---
APPROVED REPORT EKG Measurement Heart [id number] Sinus tachycardia with frequent premature ventricular complexes Left axis deviation Septal infarct, age undetermined Abnormal ECG
[2017-02-03 16:00] VITALS: BP 93/54
[2017-02-03] MEDS ORDERED: NS Irrig 1000ml ONE (17:44)
[2017-02-03 20:00] VITALS: BP 121/64
--- NOTE | 2017-02-03 20:43 | Infectious Diseases Prog Note ---
Assessment/Plan Assessment/Plan ASSESSMENT AND PLAN: 1. gram neg uti/pyelonephritis, sepsis, leukocytosis and fevers, chest x-ray neg for pna - still with fevers, leukocytosis improved - continue zosyn and vancomycin - check final cultures and f/u labs, watch temps - pulmonary treatment - streamline abx once cultures back 2. The patient has a tracheostomy. No ventilator. 3. Dysphagia, gastrostomy tube. 4. Weakness. 5. Altered mental status. 6. Alzheimer's. 7. Dementia. 8. Hypertension. 9. Diabetes. 10. Blood sugar and blood pressure control per primary. 11. Seizures. 12. Wound care protocol. 13. Quadriplegia. 14. Atrial fibrillation. 15. Hypokalemia history. 16. Urinary tract infection. 17. History of decubitus. 18. Aspiration risk. 19. 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 20. The patient has anemia. 21. Hyponatremia. 22. Allergies are negative. 23. Family history is noncontributory. 24. Social history is negative. 25. MAR was noted. 26. Case was discussed with RN. 27. Case was discussed with Dr. Robles. 28. PATRICIO care. 29. Continue treatment per primary consultants. Subjective Constitutional: Reports: fever, fatigue, other - lethargic HEENT: Reports: congestion - mild, other - + trach, no vent Respiratory: Reports: shortness of breath - mild Cardiovascular: Denies: chest pain Gastrointestinal/Abdominal: Denies: nausea, vomiting, diarrhea Genitourinary: Reports: other - + olvera Neurologic: Denies: headache Psychiatric: Denies: depression Skin: Denies: rash Hematologic: Denies: bleeding Musculoskeletal: Denies: pain Allergies: Coded Allergies: No Known Allergies (Unverified , 01/02/17) Objective Vital Signs Last 24 Hour Vital Signs Date Time Temp Pulse Resp B/P (MAP) Pulse Ox O2 Delivery O2 Flow Rate FiO2 02/03/17 16:30 75 02/03/17 16:00 10.0 35 02/03/17 16:00 100.2 83 17 93/54 100 T-piece 35 02/03/17 15:05 99.8 02/03/17 12:47 79 02/03/17 12:30 T-piece 8.0 35 02/03/17 12:30 99 T-piece 8.0 35 02/03/17 12:00 10.0 35 02/03/17 12:00 99.3 74 18 105/55 98 T-piece 35 02/03/17 09:32 79 108/59 02/03/17 08:00 99.5 79 16 108/59 96 T-piece 35 02/03/17 08:00 10.0 35 02/03/17 07:25 78 02/03/17 06:52 99 T-piece 8.0 35 02/03/17 06:52 T-piece 8.0 35 02/03/17 04:00 98.6 88 18 106/58 100 T-piece 88 02/03/17 02:31 74 02/03/17 01:05 T-piece 8.0 35 02/03/17 01:05 99 T-piece 8.0 35 02/03/17 00:00 10.0 35 02/03/17 00:00 91 02/03/17 00:00 98.2 88 16 115/58 100 T-piece 88 02/02/17 22:14 87 113/60 Height (Feet): 6 Height (Inches): 1.00 Weight (Pounds): 170 General Appearance: no acute distress HEENT: normocephalic, atraumatic, anicteric, mucous membranes moist, EOMI, pharynx normal, supple, no JVD, status post trach Respiratory/Chest: no accessory muscle use, decreased breath sounds, rhonchi - bilaterally Cardiovascular: normal rate, regular rhythm, no gallop/murmur, no JVD Abdomen: normal bowel sounds, soft, non tender, no organomegaly, non distended Genitourinary: other - + olvera - urine clearer Extremities: no cyanosis Skin: no rash, other - wounds covered 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 Lungs and pleural spaces are otherwise clear. Tracheostomy remains. The right hemidiaphragm is somewhat elevated, less so than on the previous study. Impression: Bilateral basilar atelectasis. No acute process otherwise Microbiology Date/Time Source Procedure Growth Status 02/02/17 02:30 Blood Blood Culture - Preliminary NO GROWTH AFTER 24 HOURS Resulted 02/02/17 02:30 Blood Blood Culture - Preliminary NO GROWTH AFTER 24 HOURS Resulted 02/02/17 01:13 Urine,Clean Catch Urine Culture - Preliminary Gram Negative Bacillus 1 Resulted Laboratory Tests Test 02/03/17 03:56 White Blood Count 9.7 K/UL (4.8-10.8) Red Blood Count 3.56 M/UL (4.70-6.10) L Hemoglobin 10.1 G/DL (14.2-18.0) L Hematocrit 31.5 % (42.0-52.0) L Mean Corpuscular Volume 88 FL (80-99) Mean Corpuscular Hemoglobin 28.3 PG (27.0-31.0) Mean Corpuscular Hemoglobin Concent 32.0 G/DL (32.0-36.0) Red Cell Distribution Width 15.8 % (11.6-14.8) H Platelet Count 254 K/UL (150-450) Mean Platelet Volume 7.6 FL (6.5-10.1) Neutrophils (%) (Auto) 63.6 % (45.0-75.0) Lymphocytes (%) (Auto) 23.6 % (20.0-45.0) Monocytes (%) (Auto) 10.4 % (1.0-10.0) H Eosinophils (%) (Auto) 1.8 % (0.0-3.0) Basophils (%) (Auto) 0.5 % (0.0-2.0) Sodium Level 138 MMOL/L (136-145) Potassium Level 3.8 MMOL/L (3.5-5.1) Chloride Level 101 MMOL/L (98-107) Carbon Dioxide Level 30 MMOL/L (21-32) Anion Gap 7 mmol/L (5-15) Blood Urea Nitrogen 16 mg/dL (7-18) Creatinine 0.8 MG/DL (0.55-1.30) Estimat Glomerular Filtration Rate mL/min (>60) Glucose Level 133 MG/DL (74-106) H Calcium Level 9.4 MG/DL (8.5-10.1) Phosphorus Level 3.3 MG/DL (2.5-4.9) Magnesium Level 2.0 MG/DL (1.8-2.4) Total Bilirubin 0.4 MG/DL (0.2-1.0) Direct Bilirubin < 0.1 MG/DL (0.0-0.3) Aspartate Amino Transf (AST/SGOT) 18 U/L (15-37) Alanine Aminotransferase (ALT/SGPT) 10 U/L (12-78) L Alkaline Phosphatase 138 U/L (46-116) H Total Protein 7.7 G/DL (6.4-8.2) Albumin 2.1 G/DL (3.4-5.0) L Valproic Acid (Depakene) Level 22 MCG/ML (50-100) L Current Medications Medications (Trade) Dose Ordered Sig/Dorie Route PRN Reason Start Time Stop Time Status Last Admin Dose Admin Acetaminophen (Tylenol) 650 mg Q4H PRN ORAL T>100.5 02/02/17 12:15 03/04/17 12:14 02/03/17 14:06 Albuterol/ Ipratropium (DuoNeb 0.5-3(2.5)mg/3ml) 3 ml Q4H PRN HHN Shortness of Breath 02/02/17 12:15 02/07/17 12:14 Dextrose (Dextrose 50%) STAT PRN IV Hypoglycemia 02/02/17 12:15 03/04/17 12:14 Divalproex Sodium (Depakote) 250 mg Q12HR ORAL 02/02/17 21:00 03/04/17 20:59 02/03/17 09:32 Heparin Sodium (Porcine) (Heparin 5000 units/ml) 5,000 units EVERY 12 HOURS SUBQ 02/02/17 21:00 03/04/17 20:59 02/03/17 09:33 Insulin Aspart (NovoLOG) BEFORE MEALS AND HS SUBQ 02/02/17 16:30 03/04/17 16:29 02/03/17 17:12 Lacosamide (Vimpat) 100 mg EVERY 12 HOURS ORAL 02/03/17 09:00 03/05/17 08:59 02/03/17 09:31 Levetiracetam (Keppra) 1,500 mg BID GT 02/03/17 09:00 03/05/17 08:59 02/03/17 17:13 Lorazepam (Ativan 2mg/ml 1ml) 2 mg Q2H PRN IV For Anxiety 02/02/17 12:15 02/09/17 12:14 Metoprolol Tartrate (Lopressor) 25 mg Q12HR ORAL 02/02/17 21:00 03/04/17 20:59 02/03/17 09:32 Morphine Sulfate (Morphine Sulfate) 4 mg Q4H PRN IVP Severe Pain (Pain Scale 7-10) 02/02/17 12:15 02/09/17 12:14 Ondansetron HCl (Zofran) 4 mg Q6H PRN IVP Nausea & Vomiting 02/02/17 12:15 03/04/17 12:14 Pantoprazole (Protonix) 40 mg DAILY IV 02/03/17 09:00 03/05/17 08:59 02/03/17 09:31 Piperacillin Sod/ Tazobactam Sod 4.5 gm/Dextrose 110 ml @ 27.5 mls/hr Q8HR@0000,0800,1600 IVPB 02/02/17 16:00 02/03/17 23:59 02/03/17 15:24 Piperacillin Sod/ Tazobactam Sod 4.5 gm/Sodium Chloride 110 ml @ 27.5 mls/hr Q8HR@0000,0800,1600 IVPB 02/04/17 00:00 02/11/17 00:00 Polyethylene Glycol (Miralax) 17 gm DAILYPRN PRN ORAL Constipation 02/02/17 12:15 03/04/17 12:14 Sodium Chloride 1,000 ml @ 75 mls/hr [id number] IV 02/02/17 13:00 03/04/17 12:59 02/03/17 15:24 Valproic Acid (Depakene) 500 mg Q8HR NG 02/03/17 06:00 03/05/17 05:59 02/03/17 13:50 Vancomycin HCl (Vanco rx to dose) 1 ea DAILY PRN MISC Per rx protocol 02/02/17 12:15 03/04/17 12:14 Vancomycin HCl 1 gm/Dextrose 275 ml @ 183.3 mls/ hr Q24H IVPB 02/03/17 14:00 02/08/17 13:59 02/03/17 13:50 ALKASSPOOLES,SALAM Feb 03, 2017 20:43
--- NOTE | 2017-02-03 22:04 | General Progress Note ---
Assessment/Plan Problem List: (1) Severe sepsis ICD Codes: A41.9 - Sepsis, unspecified organism; R65.20 - Severe sepsis without septic shock SNOMED: 26463065 (2) Aspiration pneumonia ICD Codes: J69.0 - Pneumonitis due to inhalation of food and vomit SNOMED: 786365908 (3) UTI (urinary tract infection) ICD Codes: N39.0 - Urinary tract infection, site not specified SNOMED: 91149887 (4) Lactic acidemia ICD Codes: E87.2 - Acidosis SNOMED: 424700722 (5) Hyponatremia ICD Codes: E87.1 - Hypo-osmolality and hyponatremia SNOMED: 87644296 (6) Tracheostomy in place ICD Codes: Z93.0 - Tracheostomy status SNOMED: 404063534 (7) Diabetes mellitus ICD Codes: E11.9 - Type 2 diabetes mellitus without complications SNOMED: 72647096 (8) Seizure disorder ICD Codes: G40.909 - Epilepsy, unspecified, not intractable, without status epilepticus SNOMED: 250847025 (9) HTN (hypertension) ICD Codes: I10 - Essential (primary) hypertension SNOMED: 52327285 (10) Advanced dementia ICD Codes: F03.90 - Unspecified dementia without behavioral disturbance SNOMED: 89485928 (11) S/P percutaneous endoscopic gastrostomy (PEG) tube placement ICD Codes: Z93.1 - Gastrostomy status SNOMED: 217850718 (12) Functional quadriplegia ICD Codes: R53.2 - Functional quadriplegia SNOMED: 432909054878378 (13) Decubitus ulcer of sacral region, stage 4 ICD Codes: L89.154 - Pressure ulcer of sacral region, stage 4 SNOMED: 805547439, 514804122 (14) Decubitus ulcer, heel, right, unstageable ICD Codes: L89.610 - Pressure ulcer of right heel, unstageable SNOMED: 211328145 Status: stable Assessment/Plan Cont empiric vanco and zosyn (02/02-) Pulm and ID consulted F/u cultures--urine cx w/ GNR, blood NGTD IVFs Trend lactate Trend BMP, CBC Cont SNF meds O2 via trach collar PRN for O2 sat>92% Suction frequently Nebs ATC and PRN Pain control, supportive care, bowel regimen Cont tube feeds DVT Prophylaxis: SCD, HSQ Code Status: Full Hospital Classification Declaration: Based on this initial evaluation, and depending on the patient's clinical course, I anticipate that this patient will require hospitalization for 3-4 days for severe sepsis, PNA, UTI and close respiratory/hemodynamic monitoring. Disposition: Once the patient is stable to leave the hospital, I anticipate the patient will likely be discharged to the following environment: back to SNF I spent 45 minutes on this patient's case, and 25 minutes were dedicated to counseling and/or care coordination. Discussed with patient/family, nursing staff, SW/CM, pulm, ID regarding clinical status, treatment course, and disposition planning. Time of note may not reflect time of encounter. Subjective Date patient seen: Feb 03, 2017 Time patient seen: 15:00 ROS Limited/Unobtainable: Yes Allergies: Coded Allergies: No Known Allergies (Unverified , 01/02/17) Subjective No acute o/n events Afebrile Tachycardia improved Lactic acid has normalized Urine cx showing GNR Pt cont on trach, non-verbal Objective Last 24 Hour Vital Signs Date Time Temp Pulse Resp B/P (MAP) Pulse Ox O2 Delivery O2 Flow Rate FiO2 02/03/17 21:47 76 121/64 02/03/17 20:56 T-piece 8.0 35 02/03/17 20:56 100 T-piece 8.0 35 02/03/17 20:00 97.9 76 16 121/64 100 T-piece 35 02/03/17 16:30 75 02/03/17 16:00 10.0 35 02/03/17 16:00 100.2 83 17 93/54 100 T-piece 35 02/03/17 15:05 99.8 02/03/17 12:47 79 02/03/17 12:30 T-piece 8.0 35 02/03/17 12:30 99 T-piece 8.0 35 02/03/17 12:00 10.0 35 02/03/17 12:00 99.3 74 18 105/55 98 T-piece 35 02/03/17 09:32 79 108/59 02/03/17 08:00 99.5 79 16 108/59 96 T-piece 35 02/03/17 08:00 10.0 35 02/03/17 07:25 78 02/03/17 06:52 99 T-piece 8.0 35 02/03/17 06:52 T-piece 8.0 35 02/03/17 04:00 98.6 88 18 106/58 100 T-piece 88 02/03/17 02:31 74 02/03/17 01:05 T-piece 8.0 35 02/03/17 01:05 99 T-piece 8.0 35 02/03/17 00:00 10.0 35 02/03/17 00:00 91 02/03/17 00:00 98.2 88 16 115/58 100 T-piece 88 02/02/17 22:14 87 113/60 Intake and Output 02/03/17 02/04/17 19:00 07:00 Intake Total 1565.0 ml Output Total 650 ml Balance 915.0 ml Intake Free Water 100 ml IV Total 1025.0 ml Tube Feeding 360 ml Other 80 ml Output Urine Total 650 ml Laboratory Tests 02/03/17 03:56: White Blood Count 9.7, Red Blood Count 3.56L, Hemoglobin 10.1L, Hematocrit 31.5L , Mean Corpuscular Volume 88, Mean Corpuscular Hemoglobin 28.3, Mean Corpuscular Hemoglobin Concent 32.0, Red Cell Distribution Width 15.8H, Platelet Count 254, Mean Platelet Volume 7.6, Neutrophils (%) (Auto) 63.6, Lymphocytes (%) (Auto) 23.6, Monocytes (%) (Auto) 10.4H, Eosinophils (%) (Auto) 1.8, Basophils (%) (Auto) 0.5, Sodium Level 138, Potassium Level 3.8, Chloride Level 101, Carbon Dioxide Level 30, Anion Gap 7, Blood Urea Nitrogen 16, Creatinine 0.8, Estimat Glomerular Filtration Rate , Glucose Level 133H, Calcium Level 9.4, Phosphorus Level 3.3, Magnesium Level 2.0, Total Bilirubin 0.4, Direct Bilirubin < 0.1, Aspartate Amino Transf (AST/SGOT) 18, Alanine Aminotransferase (ALT/SGPT) 10L, Alkaline Phosphatase 138H, Total Protein 7.7, Albumin 2.1L, Valproic Acid (Depakene) Level 22L Height (Feet): 6 Height (Inches): 1.00 Weight (Pounds): 170 Objective General: non-verbal, bed bound, occasionally opens eyes but not to command Head: normocephalic, without obvious abnormality, atraumatic Eyes: conjunctivae/corneas clear. PERRL Throat: lips, mucosa, and tongue normal. MMM Neck: supple, symmetrical, trachea midline, and no JVD, +tracheostomy c/d/i Lungs: +rhonchi b/l Heart: regular rate and rhythm, S1, S2 normal, no murmur, click, rub or gallop Abdomen: soft, non-tender, non-distended, bowel sounds normal; no masses or organomegaly Extremities: extremities normal, atraumatic, no cyanosis or edema Pulses: 2+ and symmetric Skin: skin color, texture, turgor normal; no rashes or lesions Neurologic: unable to assess as pt does not follow commands Travis Hinojosa M.D. Feb 03, 2017 22:04
--- NOTE | 2017-02-03 23:29 | Diagnostic Imaging Report ---
APPROVED REPORT CPT Code: 99667 Present Symptoms Shortness of breath BILATERAL: Imaging reveals a patent deep venous system bilaterally. There is no evidence of thrombus within the femoral, popliteal or tibial segments. The greater saphenous veins are also within normal limits. Doppler indicates normal spontaneous flow within these segments.
[2017-02-04] VITALS: BP 100/54
[2017-02-04 04:00] VITALS: BP 91/46
[2017-02-04] MEDS: Valproic Acid 250mg/5ml Liquid NG SCH ×3 (05:50→22:59)
[2017-02-04] MEDS: NovoLOG Insulin Flexpen SUBQ SCH ×4 (05:51→21:11)
[2017-02-04 06:16] LABS: ALANINE AMINOTRANSFERASE 7 U/L (12-78); ALBUMIN/GLOBULIN RATIO 0.4 (1.0-2.7); ANION GAP 5 mmol/L (5-15); ASPARTATE AMINO TRANSFERASE 15 U/L (15-37); CALCIUM 9.2 MG/DL (8.5-10.1); CARBON DIOXIDE 32 MMOL/L (21-32); CHLORIDE 102 MMOL/L (98-107); CREATININE 0.7 MG/DL (0.55-1.30); SODIUM 138 MMOL/L (136-145); TOTAL PROTEIN 7.4 G/DL (6.4-8.2)
[2017-02-04 06:37] LABS: BASOPHILS % (AUTO) 0.9 % (0.0-2.0); EOSINOPHILS % (AUTO) 3.3 % (0.0-3.0); LYMPHOCYTES % (AUTO) 23.8 % (20.0-45.0); MEAN CORPUSCULAR HEMOGLOBIN 29.2 PG (27.0-31.0); MEAN CORPUSCULAR HGB CONC 32.5 G/DL (32.0-36.0); MEAN CORPUSCULAR VOLUME 90 FL (80-99); MEAN PLATELET VOLUME 7.7 FL (6.5-10.1); MONOCYTES % (AUTO) 8.6 % (1.0-10.0); NEUTROPHILS % (AUTO) 63.4 % (45.0-75.0); PLATELET COUNT 222 K/UL (150-450); RED CELL DISTRIBUTION WIDTH 15.8 % (11.6-14.8); WHITE BLOOD COUNT 9.5 K/UL (4.8-10.8)
[2017-02-04] MEDS: Piperacillin/Tazobactam 4.5 GM in NS 110 ML IVPB SCH ×4 (07:51→17:09)
[2017-02-04 08:00] VITALS: BP 111/53
[2017-02-04] MEDS: Pantoprazole Inj IV SCH (09:16)
[2017-02-04] MEDS: Metoprolol 25mg tab ORAL SCH ×2 (09:16→21:05)
[2017-02-04] MEDS: Lacosamide 100 MG TABLET ORAL SCH ×2 (09:16→21:05)
[2017-02-04] MEDS: levETIRAcetam 500mg/5ml Liquid GT SCH ×2 (09:17→17:58)
[2017-02-04] MEDS: Heparin 5000 units/ml inj SUBQ SCH ×2 (09:19→21:13)
--- NOTE | 2017-02-04 11:55 | Pulmonology Progress Note ---
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, ID Discussed with: nurses, consultants, caser Subjective ROS Limited/Unobtainable: Yes Constitutional: Reports: no symptoms Allergies: Coded Allergies: No Known Allergies (Unverified , 01/02/17) Objective Last 24 Hour Vital Signs Date Time Temp Pulse Resp B/P (MAP) Pulse Ox O2 Delivery O2 Flow Rate FiO2 02/04/17 09:16 76 111/53 02/04/17 08:00 98.4 76 18 111/53 95 Trach Collar 35 02/04/17 08:00 76 02/04/17 07:59 T-piece 8.0 35 02/04/17 07:59 100 T-piece 8.0 35 02/04/17 04:00 98.0 72 16 91/46 100 T-piece 35 02/04/17 04:00 10.0 35 02/04/17 03:47 71 02/04/17 01:09 100 T-piece 8.0 35 02/04/17 01:09 T-piece 8.0 35 02/04/17 00:00 98.0 70 16 100/54 100 T-piece 35 02/04/17 00:00 10.0 35 02/04/17 00:00 72 02/03/17 21:47 76 121/64 02/03/17 20:56 T-piece 8.0 35 02/03/17 20:56 100 T-piece 8.0 35 02/03/17 20:00 10.0 35 02/03/17 20:00 97.9 76 16 121/64 100 T-piece 35 02/03/17 19:24 78 02/03/17 16:30 75 02/03/17 16:00 10.0 35 02/03/17 16:00 100.2 83 17 93/54 100 T-piece 35 02/03/17 15:05 99.8 02/03/17 12:47 79 02/03/17 12:30 T-piece 8.0 35 02/03/17 12:30 99 T-piece 8.0 35 02/03/17 12:00 10.0 35 02/03/17 12:00 99.3 74 18 105/55 98 T-piece 35 Objective still has lots of secretions General Appearance: WD/WN HEENT: normocephalic, atraumatic Respiratory/Chest: chest wall non-tender, lungs clear, decreased breath sounds , crackles/rales Cardiovascular: normal peripheral pulses, regular rhythm Abdomen: normal bowel sounds, soft, non tender Extremities: no cyanosis Skin: no rash Microbiology Date/Time Source Procedure Growth Status 02/02/17 02:30 Blood Blood Culture - Preliminary NO GROWTH AFTER 48 HOURS Resulted 02/02/17 02:30 Blood Blood Culture - Preliminary NO GROWTH AFTER 48 HOURS Resulted 02/02/17 01:55 Nasal Nares MRSA Culture - Final NO METHICILLIN RESISTANT STAPH AUREUS... Complete 02/02/17 01:13 Urine,Clean Catch Urine Culture - Preliminary Klebsiella Pneumoniae - Mdr Gram Negative Bacillus 2 Gram Negative Bacillus 3 Resulted 02/02/17 01:55 Rectum VRE Culture - Final Enterococcus Faecium - Vre Complete Laboratory Tests 02/04/17 05:05: White Blood Count 9.5, Red Blood Count 3.50L, Hemoglobin 10.2L, Hematocrit 31.5L , Mean Corpuscular Volume 90, Mean Corpuscular Hemoglobin 29.2, Mean Corpuscular Hemoglobin Concent 32.5, Red Cell Distribution Width 15.8H, Platelet Count 222, Mean Platelet Volume 7.7, Neutrophils (%) (Auto) 63.4, Lymphocytes (%) (Auto) 23.8, Monocytes (%) (Auto) 8.6, Eosinophils (%) (Auto) 3.3H, Basophils (%) (Auto) 0.9, Sodium Level 138, Potassium Level 4.0, Chloride Level 102, Carbon Dioxide Level 32, Anion Gap 5, Blood Urea Nitrogen 13, Creatinine 0.7, Estimat Glomerular Filtration Rate , Glucose Level 143H, Calcium Level 9.2, Total Bilirubin 0.3, Aspartate Amino Transf (AST/SGOT) 15, Alanine Aminotransferase (ALT/SGPT) 7L, Alkaline Phosphatase 125H, Pro-B-Type Natriuretic Peptide 275H, Total Protein 7.4, Albumin 2.0L, Globulin 5.4, Albumin /Globulin Ratio 0.4L Current Medications Medications (Trade) Dose Ordered Sig/Dorie Route PRN Reason Start Time Stop Time Status Last Admin Dose Admin Acetaminophen (Tylenol) 650 mg Q4H PRN ORAL T>100.5 02/02/17 12:15 03/04/17 12:14 02/03/17 14:06 Albuterol/ Ipratropium (DuoNeb 0.5-3(2.5)mg/3ml) 3 ml Q4H PRN HHN Shortness of Breath 02/02/17 12:15 02/07/17 12:14 Dextrose (Dextrose 50%) STAT PRN IV Hypoglycemia 02/02/17 12:15 03/04/17 12:14 Heparin Sodium (Porcine) (Heparin 5000 units/ml) 5,000 units EVERY 12 HOURS SUBQ 02/02/17 21:00 03/04/17 20:59 02/04/17 09:19 Insulin Aspart (NovoLOG) BEFORE MEALS AND HS SUBQ 02/02/17 16:30 03/04/17 16:29 02/04/17 05:51 Lacosamide (Vimpat) 100 mg EVERY 12 HOURS ORAL 02/03/17 09:00 03/05/17 08:59 02/04/17 09:16 Levetiracetam (Keppra) 1,500 mg BID GT 02/03/17 09:00 03/05/17 08:59 02/04/17 09:17 Lorazepam (Ativan 2mg/ml 1ml) 2 mg Q2H PRN IV For Anxiety 02/02/17 12:15 02/09/17 12:14 Metoprolol Tartrate (Lopressor) 25 mg Q12HR ORAL 02/02/17 21:00 03/04/17 20:59 02/04/17 09:16 Morphine Sulfate (Morphine Sulfate) 4 mg Q4H PRN IVP Severe Pain (Pain Scale 7-10) 02/02/17 12:15 02/09/17 12:14 Ondansetron HCl (Zofran) 4 mg Q6H PRN IVP Nausea & Vomiting 02/02/17 12:15 03/04/17 12:14 Pantoprazole (Protonix) 40 mg DAILY IV 02/03/17 09:00 03/05/17 08:59 02/04/17 09:16 Piperacillin Sod/ Tazobactam Sod 4.5 gm/Sodium Chloride 110 ml @ 27.5 mls/hr Q8HR@0000,0800,1600 IVPB 02/04/17 00:00 02/11/17 00:00 02/04/17 07:51 Polyethylene Glycol (Miralax) 17 gm DAILYPRN PRN ORAL Constipation 02/02/17 12:15 03/04/17 12:14 Sodium Chloride 1,000 ml @ 75 mls/hr [id number] IV 02/02/17 13:00 03/04/17 12:59 02/04/17 05:02 Valproic Acid (Depakene) 500 mg Q8HR NG 02/03/17 06:00 03/05/17 05:59 02/04/17 05:50 Vancomycin HCl (Vanco rx to dose) 1 ea DAILY PRN MISC Per rx protocol 02/02/17 12:15 03/04/17 12:14 Vancomycin HCl 1 gm/Dextrose 275 ml @ 183.3 mls/ hr Q24H IVPB 02/03/17 14:00 02/08/17 13:59 02/03/17 13:50 BAM SCHAEFFER Feb 04, 2017 11:55
[2017-02-04 12:05] VITALS: BP 111/59
[2017-02-04] MEDS ORDERED: Amikacin Rx to dose MISC PRN (12:30)
--- NOTE | 2017-02-04 12:33 | Infectious Diseases Prog Note ---
Assessment/Plan Assessment/Plan ASSESSMENT AND PLAN: 1. MDR klebsiella/gram neg uti/pyelonephritis, sepsis, leukocytosis and fevers, ? asp pna/hcap, d/w Dr. Martinez and possible infiltrate on chest x-ray - fevers improved, leukocytosis improved - continue zosyn, add amikacin, discontinue vancomycin - check final cultures and f/u labs, watch temps, check f/u chest x-ray - pulmonary treatment - communicated with Dr. Robles 2. The patient has a tracheostomy. No ventilator. 3. Dysphagia, gastrostomy tube. 4. Weakness. 5. Altered mental status. 6. Alzheimer's. 7. Dementia. 8. Hypertension. 9. Diabetes. 10. Blood sugar and blood pressure control per primary. 11. Seizures. 12. Wound care protocol. 13. Quadriplegia. 14. Atrial fibrillation. 15. Hypokalemia history. 16. Urinary tract infection. 17. History of decubitus. 18. Aspiration risk. 19. 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 20. The patient has anemia. 21. Hyponatremia. 22. Allergies are negative. 23. Family history is noncontributory. 24. Social history is negative. 25. MAR was noted. 26. Case was discussed with RN. 27. Case was discussed with Dr. Robles. 28. PATRICIO care. 29. Continue treatment per primary consultants. Subjective Constitutional: Denies: fever HEENT: Reports: congestion - minimal Respiratory: Reports: shortness of breath Cardiovascular: Denies: chest pain Gastrointestinal/Abdominal: Denies: nausea, vomiting, diarrhea Genitourinary: Reports: other - + olvera Psychiatric: Denies: depression Skin: Denies: rash Hematologic: Denies: bleeding Musculoskeletal: Denies: pain Allergies: Coded Allergies: No Known Allergies (Unverified , 01/02/17) Objective Vital Signs Last 24 Hour Vital Signs Date Time Temp Pulse Resp B/P (MAP) Pulse Ox O2 Delivery O2 Flow Rate FiO2 02/04/17 12:05 97.8 72 18 111/59 98 Trach Collar 35 02/04/17 12:00 10.0 35 02/04/17 09:16 76 111/53 02/04/17 08:00 10.0 35 02/04/17 08:00 98.4 76 18 111/53 95 Trach Collar 35 02/04/17 08:00 76 02/04/17 07:59 T-piece 8.0 35 02/04/17 07:59 100 T-piece 8.0 35 02/04/17 04:00 98.0 72 16 91/46 100 T-piece 35 02/04/17 04:00 10.0 35 02/04/17 03:47 71 02/04/17 01:09 100 T-piece 8.0 35 02/04/17 01:09 T-piece 8.0 35 02/04/17 00:00 98.0 70 16 100/54 100 T-piece 35 02/04/17 00:00 10.0 35 02/04/17 00:00 72 02/03/17 21:47 76 121/64 02/03/17 20:56 T-piece 8.0 35 02/03/17 20:56 100 T-piece 8.0 35 02/03/17 20:00 10.0 35 02/03/17 20:00 97.9 76 16 121/64 100 T-piece 35 02/03/17 19:24 78 02/03/17 16:30 75 02/03/17 16:00 10.0 35 02/03/17 16:00 100.2 83 17 93/54 100 T-piece 35 02/03/17 15:05 99.8 02/03/17 12:47 79 02/03/17 12:30 T-piece 8.0 35 02/03/17 12:30 99 T-piece 8.0 35 Height (Feet): 6 Height (Inches): 1.00 Weight (Pounds): 170 General Appearance: no acute distress HEENT: normocephalic, atraumatic, anicteric, mucous membranes moist, EOMI, pharynx normal, supple, no JVD, status post trach, other - no vent Respiratory/Chest: no accessory muscle use, decreased breath sounds, crackles/ rales - ? rales , rhonchi - bilaterally Cardiovascular: normal rate, regular rhythm, no gallop/murmur, no JVD Abdomen: normal bowel sounds, no organomegaly, non distended Genitourinary: other - + olvera - urine clear Extremities: no cyanosis Skin: no rash Neurologic/Psychiatric: responsive, other - lethargic, poorly responsive Lymphatic: no neck adenopathy Musculoskeletal: no effusion Objective 02/03 - chest x-ray: Comparison: 02/02/2017 Findings: There is atelectasis at the right lung base normal atelectasis at the left lung base. Lungs and pleural spaces are otherwise clear. Tracheostomy remains. The right hemidiaphragm is somewhat elevated, less so than on the previous study. Impression: Bilateral basilar atelectasis. No acute process otherwise Microbiology Date/Time Source Procedure Growth Status 02/02/17 02:30 Blood Blood Culture - Preliminary NO GROWTH AFTER 48 HOURS Resulted 02/02/17 02:30 Blood Blood Culture - Preliminary NO GROWTH AFTER 48 HOURS Resulted 02/02/17 01:55 Nasal Nares MRSA Culture - Final NO METHICILLIN RESISTANT STAPH AUREUS... Complete 02/02/17 01:13 Urine,Clean Catch Urine Culture - Preliminary Klebsiella Pneumoniae - Mdr Gram Negative Bacillus 2 Gram Negative Bacillus 3 Resulted 02/02/17 01:55 Rectum VRE Culture - Final Enterococcus Faecium - Vre Complete Laboratory Tests Test 02/04/17 05:05 White Blood Count 9.5 K/UL (4.8-10.8) Red Blood Count 3.50 M/UL (4.70-6.10) L Hemoglobin 10.2 G/DL (14.2-18.0) L Hematocrit 31.5 % (42.0-52.0) L Mean Corpuscular Volume 90 FL (80-99) Mean Corpuscular Hemoglobin 29.2 PG (27.0-31.0) Mean Corpuscular Hemoglobin Concent 32.5 G/DL (32.0-36.0) Red Cell Distribution Width 15.8 % (11.6-14.8) H Platelet Count 222 K/UL (150-450) Mean Platelet Volume 7.7 FL (6.5-10.1) Neutrophils (%) (Auto) 63.4 % (45.0-75.0) Lymphocytes (%) (Auto) 23.8 % (20.0-45.0) Monocytes (%) (Auto) 8.6 % (1.0-10.0) Eosinophils (%) (Auto) 3.3 % (0.0-3.0) H Basophils (%) (Auto) 0.9 % (0.0-2.0) Sodium Level 138 MMOL/L (136-145) Potassium Level 4.0 MMOL/L (3.5-5.1) Chloride Level 102 MMOL/L (98-107) Carbon Dioxide Level 32 MMOL/L (21-32) Anion Gap 5 mmol/L (5-15) Blood Urea Nitrogen 13 mg/dL (7-18) Creatinine 0.7 MG/DL (0.55-1.30) Estimat Glomerular Filtration Rate mL/min (>60) Glucose Level 143 MG/DL (74-106) H Calcium Level 9.2 MG/DL (8.5-10.1) Total Bilirubin 0.3 MG/DL (0.2-1.0) Aspartate Amino Transf (AST/SGOT) 15 U/L (15-37) Alanine Aminotransferase (ALT/SGPT) 7 U/L (12-78) L Alkaline Phosphatase 125 U/L (46-116) H Pro-B-Type Natriuretic Peptide 275 pg/mL (0-125) H Total Protein 7.4 G/DL (6.4-8.2) Albumin 2.0 G/DL (3.4-5.0) L Globulin 5.4 g/dL Albumin/Globulin Ratio 0.4 (1.0-2.7) L Current Medications Medications (Trade) Dose Ordered Sig/Dorie Route PRN Reason Start Time Stop Time Status Last Admin Dose Admin Acetaminophen (Tylenol) 650 mg Q4H PRN ORAL T>100.5 02/02/17 12:15 03/04/17 12:14 02/03/17 14:06 Albuterol/ Ipratropium (DuoNeb 0.5-3(2.5)mg/3ml) 3 ml Q4H PRN HHN Shortness of Breath 02/02/17 12:15 02/07/17 12:14 Dextrose (Dextrose 50%) STAT PRN IV Hypoglycemia 02/02/17 12:15 03/04/17 12:14 Heparin Sodium (Porcine) (Heparin 5000 units/ml) 5,000 units EVERY 12 HOURS SUBQ 02/02/17 21:00 03/04/17 20:59 02/04/17 09:19 Insulin Aspart (NovoLOG) BEFORE MEALS AND HS SUBQ 02/02/17 16:30 03/04/17 16:29 02/04/17 05:51 Lacosamide (Vimpat) 100 mg EVERY 12 HOURS ORAL 02/03/17 09:00 03/05/17 08:59 02/04/17 09:16 Levetiracetam (Keppra) 1,500 mg BID GT 02/03/17 09:00 03/05/17 08:59 02/04/17 09:17 Lorazepam (Ativan 2mg/ml 1ml) 2 mg Q2H PRN IV For Anxiety 02/02/17 12:15 02/09/17 12:14 Metoprolol Tartrate (Lopressor) 25 mg Q12HR ORAL 02/02/17 21:00 03/04/17 20:59 02/04/17 09:16 Morphine Sulfate (Morphine Sulfate) 4 mg Q4H PRN IVP Severe Pain (Pain Scale 7-10) 02/02/17 12:15 02/09/17 12:14 Ondansetron HCl (Zofran) 4 mg Q6H PRN IVP Nausea & Vomiting 02/02/17 12:15 03/04/17 12:14 Pantoprazole (Protonix) 40 mg DAILY IV 02/03/17 09:00 03/05/17 08:59 02/04/17 09:16 Piperacillin Sod/ Tazobactam Sod 4.5 gm/Sodium Chloride 110 ml @ 27.5 mls/hr Q8HR@0000,0800,1600 IVPB 02/04/17 00:00 02/11/17 00:00 02/04/17 07:51 Polyethylene Glycol (Miralax) 17 gm DAILYPRN PRN ORAL Constipation 02/02/17 12:15 03/04/17 12:14 Sodium Chloride 1,000 ml @ 75 mls/hr [id number] IV 02/02/17 13:00 03/04/17 12:59 02/04/17 05:02 Valproic Acid (Depakene) 500 mg Q8HR NG 02/03/17 06:00 03/05/17 05:59 02/04/17 05:50 Vancomycin HCl (Vanco rx to dose) 1 ea DAILY PRN MISC Per rx protocol 02/02/17 12:15 03/04/17 12:14 Vancomycin HCl 1 gm/Dextrose 275 ml @ 183.3 mls/ hr Q24H IVPB 02/03/17 14:00 02/08/17 13:59 02/03/17 13:50 JENNIFER BEVERLY Feb 04, 2017 12:33
--- NOTE | 2017-02-04 12:38 | Diagnostic Imaging Report ---
Indication: Dyspnea Comparison: 02/03/17 A single view chest radiograph was obtained. Findings: There is mild basilar atelectasis. Right hemidiaphragm is elevated. Tracheostomy noted. Heart size is stable. The Impression: No significant change
[2017-02-04] MEDS ORDERED: Amikacin 1,200 MG in NS 110 ML IV SCH (14:00)
--- NOTE | 2017-02-04 15:46 | General Progress Note ---
Assessment/Plan Problem List: (1) Severe sepsis ICD Codes: A41.9 - Sepsis, unspecified organism; R65.20 - Severe sepsis without septic shock SNOMED: 04220401 (2) UTI secondary to multidrug resistant Klebsiella pneumonia (3) Aspiration pneumonia ICD Codes: J69.0 - Pneumonitis due to inhalation of food and vomit SNOMED: 002690561 (4) Lactic acidemia ICD Codes: E87.2 - Acidosis SNOMED: 769629019 (5) Hyponatremia ICD Codes: E87.1 - Hypo-osmolality and hyponatremia SNOMED: 98523354 (6) Tracheostomy in place ICD Codes: Z93.0 - Tracheostomy status SNOMED: 268145129 (7) Diabetes mellitus ICD Codes: E11.9 - Type 2 diabetes mellitus without complications SNOMED: 28110028 (8) Seizure disorder ICD Codes: G40.909 - Epilepsy, unspecified, not intractable, without status epilepticus SNOMED: 171635775 (9) HTN (hypertension) ICD Codes: I10 - Essential (primary) hypertension SNOMED: 06740600 (10) Advanced dementia ICD Codes: F03.90 - Unspecified dementia without behavioral disturbance SNOMED: 88947407 (11) S/P percutaneous endoscopic gastrostomy (PEG) tube placement ICD Codes: Z93.1 - Gastrostomy status SNOMED: 984578911 (12) Functional quadriplegia ICD Codes: R53.2 - Functional quadriplegia SNOMED: 555240828428379 (13) Decubitus ulcer of sacral region, stage 4 ICD Codes: L89.154 - Pressure ulcer of sacral region, stage 4 SNOMED: 667218546, 728172070 (14) Decubitus ulcer, heel, right, unstageable ICD Codes: L89.610 - Pressure ulcer of right heel, unstageable SNOMED: 342109922 Status: stable Assessment/Plan Cont zosyn (02/02-) D/c vanco (02/02-02/04) Start amikacin (02/04-) Pulm and ID consulted F/u urine cx--MDR Klebsiella pneumonia + 2 other GNRs to be speciated F/u blood cx--ngtd IVFs Trend lactate Trend BMP, CBC Cont SNF meds O2 via trach collar PRN for O2 sat>92% Suction frequently Nebs ATC and PRN Pain control, supportive care, bowel regimen Cont tube feeds DVT Prophylaxis: SCD, HSQ Code Status: Full Hospital Classification Declaration: Based on this initial evaluation, and depending on the patient's clinical course, I anticipate that this patient will require hospitalization for 2-3 days for severe sepsis, PNA, UTI and close respiratory/hemodynamic monitoring. Disposition: Once the patient is stable to leave the hospital, I anticipate the patient will likely be discharged to the following environment: back to SNF I spent 42 minutes on this patient's case, and 25 minutes were dedicated to counseling and/or care coordination. Discussed with patient/family, nursing staff, SW/CM, pulm, ID regarding clinical status, treatment course, and disposition planning. D/w ID re MDR UTI, change of abx Time of note may not reflect time of encounter. Subjective Date patient seen: Feb 04, 2017 Time patient seen: 15:46 ROS Limited/Unobtainable: No Allergies: Coded Allergies: No Known Allergies (Unverified , 01/02/17) Subjective No acute o/n events Afebrile Tachycardia improved Lactic acid has normalized Urine cx showing MDR Klebsiella pneumoniae Pt cont on trach, non-verbal Objective Last 24 Hour Vital Signs Date Time Temp Pulse Resp B/P (MAP) Pulse Ox O2 Delivery O2 Flow Rate FiO2 02/04/17 13:11 T-piece 8.0 35 02/04/17 13:11 99 T-piece 8.0 35 02/04/17 12:32 69 02/04/17 12:05 97.8 72 18 111/59 98 Trach Collar 35 02/04/17 12:00 10.0 35 02/04/17 09:16 76 111/53 02/04/17 08:00 10.0 35 02/04/17 08:00 98.4 76 18 111/53 95 Trach Collar 35 02/04/17 08:00 76 02/04/17 07:59 T-piece 8.0 35 02/04/17 07:59 100 T-piece 8.0 35 02/04/17 04:00 98.0 72 16 91/46 100 T-piece 35 02/04/17 04:00 10.0 35 02/04/17 03:47 71 02/04/17 01:09 100 T-piece 8.0 35 02/04/17 01:09 T-piece 8.0 35 02/04/17 00:00 98.0 70 16 100/54 100 T-piece 35 02/04/17 00:00 10.0 35 02/04/17 00:00 72 02/03/17 21:47 76 121/64 02/03/17 20:56 T-piece 8.0 35 02/03/17 20:56 100 T-piece 8.0 35 02/03/17 20:00 10.0 35 02/03/17 20:00 97.9 76 16 121/64 100 T-piece 35 02/03/17 19:24 78 02/03/17 16:30 75 02/03/17 16:00 10.0 35 02/03/17 16:00 100.2 83 17 93/54 100 T-piece 35 Laboratory Tests 02/04/17 05:05: White Blood Count 9.5, Red Blood Count 3.50L, Hemoglobin 10.2L, Hematocrit 31.5L , Mean Corpuscular Volume 90, Mean Corpuscular Hemoglobin 29.2, Mean Corpuscular Hemoglobin Concent 32.5, Red Cell Distribution Width 15.8H, Platelet Count 222, Mean Platelet Volume 7.7, Neutrophils (%) (Auto) 63.4, Lymphocytes (%) (Auto) 23.8, Monocytes (%) (Auto) 8.6, Eosinophils (%) (Auto) 3.3H, Basophils (%) (Auto) 0.9, Sodium Level 138, Potassium Level 4.0, Chloride Level 102, Carbon Dioxide Level 32, Anion Gap 5, Blood Urea Nitrogen 13, Creatinine 0.7, Estimat Glomerular Filtration Rate , Glucose Level 143H, Calcium Level 9.2, Total Bilirubin 0.3, Aspartate Amino Transf (AST/SGOT) 15, Alanine Aminotransferase (ALT/SGPT) 7L, Alkaline Phosphatase 125H, Pro-B-Type Natriuretic Peptide 275H, Total Protein 7.4, Albumin 2.0L, Globulin 5.4, Albumin /Globulin Ratio 0.4L Height (Feet): 6 Height (Inches): 1.00 Weight (Pounds): 170 Objective General: non-verbal, bed bound, occasionally opens eyes but not to command Head: normocephalic, without obvious abnormality, atraumatic Eyes: conjunctivae/corneas clear. PERRL Throat: lips, mucosa, and tongue normal. MMM Neck: supple, symmetrical, trachea midline, and no JVD, +tracheostomy c/d/i Lungs: +rhonchi b/l Heart: regular rate and rhythm, S1, S2 normal, no murmur, click, rub or gallop Abdomen: soft, non-tender, non-distended, bowel sounds normal; no masses or organomegaly Extremities: extremities normal, atraumatic, no cyanosis or edema Pulses: 2+ and symmetric Skin: skin color, texture, turgor normal; no rashes or lesions Neurologic: unable to assess as pt does not follow commands Travis Hinojosa M.D. Feb 04, 2017 15:46
[2017-02-04 16:00] VITALS: BP 109/62
[2017-02-04] MEDS ORDERED: NS 275ml ONE (16:19)
[2017-02-04] MEDS ORDERED: Tubing IV Secondary IV ONE (16:19)
[2017-02-04 20:00] VITALS: BP 109/57
[2017-02-05] VITALS: BP 109/60
[2017-02-05] MEDS: Piperacillin/Tazobactam 4.5 GM in NS 110 ML IVPB SCH ×3 (00:46→15:58)
[2017-02-05 04:00] VITALS: BP 123/65
[2017-02-05 04:00] LABS: BASOPHILS % (AUTO) 0.7 % (0.0-2.0); EOSINOPHILS % (AUTO) 3.2 % (0.0-3.0); MEAN CORPUSCULAR HEMOGLOBIN 29.1 PG (27.0-31.0); MEAN CORPUSCULAR HGB CONC 32.6 G/DL (32.0-36.0); MEAN CORPUSCULAR VOLUME 89 FL (80-99); MEAN PLATELET VOLUME 7.2 FL (6.5-10.1); NEUTROPHILS % (AUTO) 56.1 % (45.0-75.0); PLATELET COUNT 238 K/UL (150-450); RED BLOOD COUNT 3.13 M/UL (4.70-6.10); RED CELL DISTRIBUTION WIDTH 15.4 % (11.6-14.8); WHITE BLOOD COUNT 6.5 K/UL (4.8-10.8)
[2017-02-05 04:09] LABS: ALANINE AMINOTRANSFERASE 8 U/L (12-78); ALBUMIN/GLOBULIN RATIO 0.4 (1.0-2.7); ANION GAP 2 mmol/L (5-15); ASPARTATE AMINO TRANSFERASE 12 U/L (15-37); CALCIUM 8.8 MG/DL (8.5-10.1); CARBON DIOXIDE 34 MMOL/L (21-32); CHLORIDE 107 MMOL/L (98-107); CREATININE 0.7 MG/DL (0.55-1.30); CRP QUANT 8.3 mg/dL (0.00-0.90); MAGNESIUM 1.9 MG/DL (1.8-2.4); PHOSPHORUS 2.9 MG/DL (2.5-4.9); SODIUM 143 MMOL/L (136-145); TOTAL PROTEIN 6.9 G/DL (6.4-8.2)
[2017-02-05 05:13] LABS: ERYTHROCYTE SEDIMENTATION RATE 122 MM/HR (0-30)
[2017-02-05] MEDS: Valproic Acid 250mg/5ml Liquid NG SCH ×3 (05:13→21:29)
[2017-02-05] MEDS: NovoLOG Insulin Flexpen SUBQ SCH ×4 (06:59→20:20)
[2017-02-05 08:00] VITALS: BP 116/59
[2017-02-05] MEDS: levETIRAcetam 500mg/5ml Liquid GT SCH ×2 (09:06→17:21)
[2017-02-05] MEDS: Lacosamide 100 MG TABLET ORAL SCH ×2 (09:06→20:12)
[2017-02-05] MEDS: Pantoprazole Inj IV SCH (09:07)
[2017-02-05] MEDS: Metoprolol 25mg tab ORAL SCH ×2 (09:07→20:12)
[2017-02-05] MEDS: Heparin 5000 units/ml inj SUBQ SCH ×2 (09:08→20:16)
--- NOTE | 2017-02-05 10:57 | Pulmonology Progress Note ---
Assessment/Plan Problems: (1) Aspiration pneumonia (2) Severe sepsis (3) Seizure disorder (4) Advanced dementia (5) G tube feedings Assessment/Plan improving respiratory treament check cultures tolerating feeding dvt prophylaxis Subjective ROS Limited/Unobtainable: No Allergies: Coded Allergies: No Known Allergies (Unverified , 01/02/17) Objective Last 24 Hour Vital Signs Date Time Temp Pulse Resp B/P (MAP) Pulse Ox O2 Delivery O2 Flow Rate FiO2 02/05/17 09:07 63 116/59 02/05/17 08:00 99.3 63 19 116/59 98 T-piece 35 02/05/17 07:48 10.0 35 02/05/17 07:30 T-piece 10.0 35 02/05/17 07:29 99 T-piece 10.0 35 02/05/17 04:00 10.0 35 02/05/17 04:00 98.8 69 20 123/65 99 Mechanical Ventilator 02/05/17 04:00 63 02/05/17 01:00 99 T-piece 10.0 35 02/05/17 01:00 T-piece 10.0 35 02/05/17 00:00 97.9 66 20 109/60 99 Mechanical Ventilator 02/05/17 00:00 66 02/04/17 21:05 69 109/57 02/04/17 20:00 98.8 69 18 109/57 98 Mechanical Ventilator 02/04/17 20:00 67 02/04/17 20:00 10.0 35 02/04/17 18:40 T-piece 10.0 35 02/04/17 18:40 98 T-piece 10.0 35 02/04/17 18:08 10.0 35 02/04/17 16:45 68 02/04/17 16:00 98.5 69 18 109/62 98 Trach Collar 35 02/04/17 13:11 T-piece 8.0 35 02/04/17 13:11 99 T-piece 8.0 35 02/04/17 12:32 69 02/04/17 12:05 97.8 72 18 111/59 98 Trach Collar 35 02/04/17 12:00 10.0 35 Objective still has lots of secretions General Appearance: WD/WN, no acute distress HEENT: atraumatic Respiratory/Chest: chest wall non-tender, lungs clear Cardiovascular: normal peripheral pulses, normal rate Abdomen: normal bowel sounds, soft, non tender, no organomegaly Extremities: no cyanosis, no clubbing Skin: no lesions Neurologic/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: 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 normal, no motor/sensory deficits Laboratory Tests 02/05/17 02:45: White Blood Count 6.5, Red Blood Count 3.13L, Hemoglobin 9.1L, Hematocrit 27.9L , Mean Corpuscular Volume 89, Mean Corpuscular Hemoglobin 29.1, Mean Corpuscular Hemoglobin Concent 32.6, Red Cell Distribution Width 15.4H, Platelet Count 238, Mean Platelet Volume 7.2, Neutrophils (%) (Auto) 56.1, Lymphocytes (%) (Auto) 30.0, Monocytes (%) (Auto) 10.0, Eosinophils (%) (Auto) 3.2H, Basophils (%) (Auto) 0.7, Erythrocyte Sedimentation Rate 122H, Sodium Level 143, Potassium Level 4.0, Chloride Level 107, Carbon Dioxide Level 34H, Anion Gap 2L, Blood Urea Nitrogen 9, Creatinine 0.7, Estimat Glomerular Filtration Rate , Glucose Level 100, Calcium Level 8.8, Phosphorus Level 2.9, Magnesium Level 1.9, Total Bilirubin 0.1L, Aspartate Amino Transf (AST/SGOT) 12L , Alanine Aminotransferase (ALT/SGPT) 8L, Alkaline Phosphatase 109, C-Reactive Protein, Quantitative 8.3H, Total Protein 6.9, Albumin 1.8L, Globulin 5.1, Albumin/Globulin Ratio 0.4L, Random Amikacin Level [Pending] Current Medications Medications (Trade) Dose Ordered Sig/Dorie Route PRN Reason Start Time Stop Time Status Last Admin Dose Admin Acetaminophen (Tylenol) 650 mg Q4H PRN ORAL T>100.5 02/02/17 12:15 03/04/17 12:14 02/03/17 14:06 Albuterol/ Ipratropium (DuoNeb 0.5-3(2.5)mg/3ml) 3 ml Q4H PRN HHN Shortness of Breath 02/02/17 12:15 02/07/17 12:14 Amikacin Protocol (Amikacin pharmacy to dose) 1 ea DAILY PRN MISC Per rx protocol 02/04/17 12:30 03/06/17 12:29 Amikacin Sulfate 1200 mg/Dextrose 279.8 ml @ 559.6 mls/ hr Q24H IV 02/05/17 14:00 02/12/17 13:59 Dextrose (Dextrose 50%) STAT PRN IV Hypoglycemia 02/02/17 12:15 03/04/17 12:14 Heparin Sodium (Porcine) (Heparin 5000 units/ml) 5,000 units EVERY 12 HOURS SUBQ 02/02/17 21:00 03/04/17 20:59 02/05/17 09:08 Insulin Aspart (NovoLOG) BEFORE MEALS AND HS SUBQ 02/02/17 16:30 03/04/17 16:29 02/05/17 06:59 Lacosamide (Vimpat) 100 mg EVERY 12 HOURS ORAL 02/03/17 09:00 03/05/17 08:59 02/05/17 09:06 Levetiracetam (Keppra) 1,500 mg BID GT 02/03/17 09:00 03/05/17 08:59 02/05/17 09:06 Lorazepam (Ativan 2mg/ml 1ml) 2 mg Q2H PRN IV For Anxiety 02/02/17 12:15 02/09/17 12:14 Metoprolol Tartrate (Lopressor) 25 mg Q12HR ORAL 02/02/17 21:00 03/04/17 20:59 02/05/17 09:07 Morphine Sulfate (Morphine Sulfate) 4 mg Q4H PRN IVP Severe Pain (Pain Scale 7-10) 02/02/17 12:15 02/09/17 12:14 Ondansetron HCl (Zofran) 4 mg Q6H PRN IVP Nausea & Vomiting 02/02/17 12:15 03/04/17 12:14 Pantoprazole (Protonix) 40 mg DAILY IV 02/03/17 09:00 03/05/17 08:59 02/05/17 09:07 Piperacillin Sod/ Tazobactam Sod 4.5 gm/Sodium Chloride 110 ml @ 27.5 mls/hr Q8HR@0000,0800,1600 IVPB 02/04/17 00:00 02/11/17 00:00 02/05/17 07:45 Polyethylene Glycol (Miralax) 17 gm DAILYPRN PRN ORAL Constipation 02/02/17 12:15 11/16/17 12:14 02/04/17 12:45 Sodium Chloride 1,000 ml @ 75 mls/hr [id number] IV 02/02/17 13:00 03/04/17 12:59 02/05/17 07:45 Valproic Acid (Depakene) 500 mg Q8HR NG 02/03/17 06:00 03/05/17 05:59 02/05/17 05:13 BAM SCHAEFFER Feb 05, 2017 10:57
[2017-02-05 12:00] VITALS: BP 124/71
[2017-02-05] MEDS ORDERED: D5W IV SCH (14:00)
[2017-02-05] MEDS ORDERED: AMIKACIN IV SCH (14:00)
[2017-02-05 16:00] VITALS: BP 138/80
[2017-02-05] MEDS ORDERED: Docusate 100mg cap ORAL SCH ×2 (18:45→19:30)
[2017-02-05] MEDS ORDERED: Lactulose 10gm/15ml UDC ORAL SCH (18:45)
[2017-02-05] MEDS ORDERED: Lactulose 20gm/30ml UDC ORAL PRN (18:45)
[2017-02-05 20:10] VITALS: BP 154/72
[2017-02-05] MEDS: Docusate 100mg/10ml Liq GT SCH (20:12)
[2017-02-05] MEDS ORDERED: NS 275ml ONE (21:39)
--- NOTE | 2017-02-05 22:36 | General Progress Note ---
Assessment/Plan Problem List: (1) Severe sepsis ICD Codes: A41.9 - Sepsis, unspecified organism; R65.20 - Severe sepsis without septic shock SNOMED: 89444916 (2) UTI secondary to multidrug resistant Klebsiella pneumonia (3) Aspiration pneumonia ICD Codes: J69.0 - Pneumonitis due to inhalation of food and vomit SNOMED: 604514375 (4) Lactic acidemia ICD Codes: E87.2 - Acidosis SNOMED: 092781288 (5) Hyponatremia ICD Codes: E87.1 - Hypo-osmolality and hyponatremia SNOMED: 42504015 (6) Tracheostomy in place ICD Codes: Z93.0 - Tracheostomy status SNOMED: 598009763 (7) Diabetes mellitus ICD Codes: E11.9 - Type 2 diabetes mellitus without complications SNOMED: 78965903 (8) Seizure disorder ICD Codes: G40.909 - Epilepsy, unspecified, not intractable, without status epilepticus SNOMED: 087073840 (9) HTN (hypertension) ICD Codes: I10 - Essential (primary) hypertension SNOMED: 75383417 (10) Advanced dementia ICD Codes: F03.90 - Unspecified dementia without behavioral disturbance SNOMED: 16957637 (11) S/P percutaneous endoscopic gastrostomy (PEG) tube placement ICD Codes: Z93.1 - Gastrostomy status SNOMED: 451288770 (12) Functional quadriplegia ICD Codes: R53.2 - Functional quadriplegia SNOMED: 682971754117554 (13) Decubitus ulcer of sacral region, stage 4 ICD Codes: L89.154 - Pressure ulcer of sacral region, stage 4 SNOMED: 455765281, 572954898 (14) Decubitus ulcer, heel, right, unstageable ICD Codes: L89.610 - Pressure ulcer of right heel, unstageable SNOMED: 743450472 Status: stable Assessment/Plan Appreciate ID rec's Cont zosyn (02/02-) D/c vanco (02/02-02/04) Cont amikacin (02/04-) F/u urine cx--MDR Klebsiella pneumonia, Klebsiella #2, Psedumonas F/u blood cx--ngtd IVFs Trend lactate Trend BMP, CBC Cont SNF meds O2 via trach collar PRN for O2 sat>92% Suction frequently Nebs ATC and PRN Pain control, supportive care, bowel regimen Cont tube feeds DVT Prophylaxis: SCD, HSQ Code Status: Full Hospital Classification Declaration: Based on this initial evaluation, and depending on the patient's clinical course, I anticipate that this patient will require hospitalization for 2-3 days for severe sepsis, PNA, UTI and close respiratory/hemodynamic monitoring. Disposition: Once the patient is stable to leave the hospital, I anticipate the patient will likely be discharged to the following environment: back to SNF I spent 40 minutes on this patient's case, and 24 minutes were dedicated to counseling and/or care coordination. Discussed with patient/family, nursing staff, SW/CM, pulm, ID regarding clinical status, treatment course, and disposition planning. D/w ID re MDR UTI, change of abx Time of note may not reflect time of encounter. Subjective Date patient seen: Feb 05, 2017 Time patient seen: 15:00 ROS Limited/Unobtainable: No Constitutional: Reports: no symptoms HEENT: Reports: no symptoms Cardiovascular: Reports: no symptoms Respiratory: Reports: no symptoms Gastrointestinal/Abdominal: Reports: no symptoms Genitourinary: Reports: no symptoms Neurologic/Psychiatric: Reports: no symptoms Endocrine: Reports: no symptoms Hematologic/Lymphatic: Reports: no symptoms Allergies: Coded Allergies: No Known Allergies (Unverified , 01/02/17) All Systems: reviewed and negative except above Subjective No acute o/n events Afebrile Tachycardia improved Lactic acid has normalized Urine cx showing MDR Klebsiella pneumoniae Abx switched from vanco to amikacin yesterday Pt cont on trach, non-verbal Objective Last 24 Hour Vital Signs Date Time Temp Pulse Resp B/P (MAP) Pulse Ox O2 Delivery O2 Flow Rate FiO2 02/05/17 20:12 62 135/60 02/05/17 20:10 98.4 64 20 154/72 100 T-piece 35 02/05/17 20:00 60 02/05/17 18:56 T-piece 10.0 35 02/05/17 18:56 99 T-piece 10.0 35 02/05/17 16:00 10.0 35 02/05/17 16:00 62 02/05/17 16:00 97.8 64 22 138/80 100 T-piece 35 02/05/17 13:59 T-piece 10.0 35 02/05/17 13:55 99 T-piece 10.0 35 02/05/17 12:00 61 02/05/17 12:00 10.0 35 02/05/17 12:00 99.1 64 20 124/71 99 T-piece 35 02/05/17 09:07 63 116/59 02/05/17 08:00 64 02/05/17 08:00 99.3 63 19 116/59 98 T-piece 35 02/05/17 07:48 10.0 35 02/05/17 07:30 T-piece 10.0 35 02/05/17 07:29 99 T-piece 10.0 35 02/05/17 04:00 10.0 35 02/05/17 04:00 98.8 69 20 123/65 99 Mechanical Ventilator 02/05/17 04:00 63 02/05/17 01:00 99 T-piece 10.0 35 02/05/17 01:00 T-piece 10.0 35 02/05/17 00:00 97.9 66 20 109/60 99 Mechanical Ventilator 02/05/17 00:00 66 Intake and Output 02/05/17 02/06/17 19:00 07:00 Intake Total 1329.8 ml Output Total 1000 ml Balance 329.8 ml Intake Free Water 100 ml IV Total 989.8 ml Tube Feeding 240 ml Output Urine Total 1000 ml # Bowel Movements 1 Laboratory Tests 02/05/17 02:45: White Blood Count 6.5, Red Blood Count 3.13L, Hemoglobin 9.1L, Hematocrit 27.9L , Mean Corpuscular Volume 89, Mean Corpuscular Hemoglobin 29.1, Mean Corpuscular Hemoglobin Concent 32.6, Red Cell Distribution Width 15.4H, Platelet Count 238, Mean Platelet Volume 7.2, Neutrophils (%) (Auto) 56.1, Lymphocytes (%) (Auto) 30.0, Monocytes (%) (Auto) 10.0, Eosinophils (%) (Auto) 3.2H, Basophils (%) (Auto) 0.7, Erythrocyte Sedimentation Rate 122H, Sodium Level 143, Potassium Level 4.0, Chloride Level 107, Carbon Dioxide Level 34H, Anion Gap 2L, Blood Urea Nitrogen 9, Creatinine 0.7, Estimat Glomerular Filtration Rate , Glucose Level 100, Calcium Level 8.8, Phosphorus Level 2.9, Magnesium Level 1.9, Total Bilirubin 0.1L, Aspartate Amino Transf (AST/SGOT) 12L , Alanine Aminotransferase (ALT/SGPT) 8L, Alkaline Phosphatase 109, C-Reactive Protein, Quantitative 8.3H, Total Protein 6.9, Albumin 1.8L, Globulin 5.1, Albumin/Globulin Ratio 0.4L, Random Amikacin Level 11.3 Height (Feet): 6 Height (Inches): 1.00 Weight (Pounds): 170 Objective General: non-verbal, bed bound, occasionally opens eyes but not to command Head: normocephalic, without obvious abnormality, atraumatic Eyes: conjunctivae/corneas clear. PERRL Throat: lips, mucosa, and tongue normal. MMM Neck: supple, symmetrical, trachea midline, and no JVD, +tracheostomy c/d/i Lungs: +rhonchi b/l Heart: regular rate and rhythm, S1, S2 normal, no murmur, click, rub or gallop Abdomen: soft, non-tender, non-distended, bowel sounds normal; no masses or organomegaly Extremities: extremities normal, atraumatic, no cyanosis or edema Pulses: 2+ and symmetric Skin: skin color, texture, turgor normal; no rashes or lesions Neurologic: unable to assess as pt does not follow commands Travis Hinojosa M.D. Feb 05, 2017 22:36
[2017-02-06] VITALS: BP 140/72
[2017-02-06] MEDS: Piperacillin/Tazobactam 4.5 GM in NS 110 ML IVPB SCH ×2 (00:17→08:36)
[2017-02-06 04:11] VITALS: BP 135/81
[2017-02-06] MEDS: Valproic Acid 250mg/5ml Liquid NG SCH ×3 (05:30→21:44)
[2017-02-06] MEDS: NovoLOG Insulin Flexpen SUBQ SCH ×4 (05:30→23:10)
[2017-02-06 05:35] LABS: BASOPHILS % (AUTO) 0.5 % (0.0-2.0); EOSINOPHILS % (AUTO) 3.1 % (0.0-3.0); LYMPHOCYTES % (AUTO) 22.8 % (20.0-45.0); MEAN CORPUSCULAR HEMOGLOBIN 28.8 PG (27.0-31.0); MEAN CORPUSCULAR HGB CONC 32.1 G/DL (32.0-36.0); MEAN CORPUSCULAR VOLUME 90 FL (80-99); MEAN PLATELET VOLUME 7.4 FL (6.5-10.1); MONOCYTES % (AUTO) 12.4 % (1.0-10.0); NEUTROPHILS % (AUTO) 61.2 % (45.0-75.0); PLATELET COUNT 244 K/UL (150-450); RED BLOOD COUNT 3.73 M/UL (4.70-6.10); RED CELL DISTRIBUTION WIDTH 15.9 % (11.6-14.8)
[2017-02-06 05:46] LABS: ALANINE AMINOTRANSFERASE 9 U/L (12-78); ALBUMIN/GLOBULIN RATIO 0.4 (1.0-2.7); ANION GAP 7 mmol/L (5-15); ASPARTATE AMINO TRANSFERASE 15 U/L (15-37); CALCIUM 9.3 MG/DL (8.5-10.1); CARBON DIOXIDE 31 MMOL/L (21-32); CHLORIDE 105 MMOL/L (98-107); CREATININE 0.7 MG/DL (0.55-1.30); PHOSPHORUS 2.7 MG/DL (2.5-4.9); SODIUM 142 MMOL/L (136-145); TOTAL PROTEIN 7.7 G/DL (6.4-8.2)
[2017-02-06 08:00] VITALS: BP 146/80
[2017-02-06] MEDS: Docusate 100mg/10ml Liq GT SCH ×2 (09:00→18:00)
[2017-02-06] MEDS: Metoprolol 25mg tab ORAL SCH ×2 (09:08→20:10)
[2017-02-06] MEDS: levETIRAcetam 500mg/5ml Liquid GT SCH ×2 (09:08→17:18)
[2017-02-06] MEDS: Lacosamide 100 MG TABLET ORAL SCH ×2 (09:08→20:10)
[2017-02-06] MEDS: Pantoprazole Inj IV SCH (09:08)
[2017-02-06] MEDS: Heparin 5000 units/ml inj SUBQ SCH ×2 (09:09→20:11)
[2017-02-06] MEDS ORDERED: NS 275ml ONE (09:31)
--- NOTE | 2017-02-06 11:03 | Infectious Diseases Prog Note ---
Assessment/Plan Assessment/Plan ASSESSMENT AND PLAN: 1. MDR klebsiella/pseudomonas/gram neg uti/pyelonephritis, sepsis, leukocytosis and fevers, ? asp pna/hcap, d/w Dr. Martinez and possible infiltrate on chest x-ray - fevers improved, leukocytosis improved - amikacin, flagyl x one week - check final cultures and f/u labs, watch temps, check f/u chest x-ray - pulmonary treatment 2. The patient has a tracheostomy. No ventilator. 3. Dysphagia, gastrostomy tube. 4. Weakness. 5. Altered mental status. 6. Alzheimer's. 7. Dementia. 8. Hypertension. 9. Diabetes. 10. Blood sugar and blood pressure control per primary. 11. Seizures. 12. Wound care protocol. 13. Quadriplegia. 14. Atrial fibrillation. 15. Hypokalemia history. 16. Urinary tract infection. 17. History of decubitus. 18. Aspiration risk. 19. 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 20. The patient has anemia. 21. Hyponatremia. 22. Allergies are negative. 23. Family history is noncontributory. 24. Social history is negative. 25. MAR was noted. 26. Case was discussed with RN. 27. Case was discussed with Dr. Robles. 28. PATRICIO care. 29. Continue treatment per primary consultants. Subjective Constitutional: Denies: fever HEENT: Reports: congestion - les Respiratory: Reports: shortness of breath - less Cardiovascular: Reports: other - no pressors, Denies: chest pain Gastrointestinal/Abdominal: Denies: nausea, vomiting, diarrhea Genitourinary: Reports: other - + olvera Psychiatric: Denies: depression Skin: Denies: rash Hematologic: Denies: bleeding Musculoskeletal: Denies: pain Allergies: Coded Allergies: No Known Allergies (Unverified , 01/02/17) Objective Vital Signs Last 24 Hour Vital Signs Date Time Temp Pulse Resp B/P (MAP) Pulse Ox O2 Delivery O2 Flow Rate FiO2 02/06/17 09:08 78 146/80 02/06/17 08:00 10.0 28 02/06/17 08:00 97.5 78 20 146/80 100 T-piece 28 02/06/17 07:49 75 02/06/17 06:42 99 T-piece 6.0 28 02/06/17 06:42 T-piece 6.0 28 02/06/17 04:11 97.9 66 20 135/81 99 T-piece 30 02/06/17 04:01 66 02/06/17 04:00 10.0 28 02/06/17 01:25 T-piece 6.0 28 02/06/17 01:25 100 T-piece 6.0 28 02/06/17 00:00 97.7 72 24 140/72 100 T-piece 28 02/06/17 00:00 64 02/05/17 20:12 62 135/60 02/05/17 20:10 98.4 64 20 154/72 100 T-piece 35 02/05/17 20:00 10.0 28 02/05/17 20:00 60 02/05/17 18:56 T-piece 10.0 35 02/05/17 18:56 99 T-piece 10.0 35 02/05/17 16:00 10.0 35 02/05/17 16:00 62 02/05/17 16:00 97.8 64 22 138/80 100 T-piece 35 02/05/17 13:59 T-piece 10.0 35 02/05/17 13:55 99 T-piece 10.0 35 02/05/17 12:00 61 02/05/17 12:00 10.0 35 02/05/17 12:00 99.1 64 20 124/71 99 T-piece 35 Height (Feet): 6 Height (Inches): 1.00 Weight (Pounds): 170 General Appearance: no acute distress HEENT: normocephalic, atraumatic, anicteric, mucous membranes moist, PERRL, EOMI, pharynx normal, supple, no JVD, status post trach Respiratory/Chest: no accessory muscle use, crackles/rales, rhonchi - bilaterally Cardiovascular: normal rate, regular rhythm, no gallop/murmur Abdomen: normal bowel sounds, soft, non tender, no organomegaly, non distended Genitourinary: other - + olvera - urine clear Extremities: no cyanosis Skin: no rash Neurologic/Psychiatric: other - generalized weakness, poorly responsive Lymphatic: no neck adenopathy Musculoskeletal: no effusion Objective 02/03 - chest x-ray: Comparison: 02/02/2017 Findings: There is atelectasis at the right lung base normal atelectasis at the left lung base. Lungs and pleural spaces are otherwise clear. Tracheostomy remains. The right hemidiaphragm is somewhat elevated, less so than on the previous study. Impression: Bilateral basilar atelectasis. No acute process otherwise Chest x-ray: Findings: There is mild basilar atelectasis. Right hemidiaphragm is elevated. Tracheostomy noted. Heart size is stable. The Impression: No significant change Microbiology Date/Time Source Procedure Growth Status 02/02/17 02:30 Blood Blood Culture - Preliminary NO GROWTH AFTER 4 DAYS Resulted 02/02/17 01:55 Nasal Nares MRSA Culture - Final NO METHICILLIN RESISTANT STAPH AUREUS... Complete 02/02/17 01:13 Urine,Clean Catch Urine Culture - Preliminary K.pneumoniae Carbapenem Resist Pseudomonas Aeruginosa Resulted 02/02/17 01:55 Rectum VRE Culture - Final Enterococcus Faecium - Vre Complete Laboratory Tests Test 02/06/17 03:05 White Blood Count 7.0 K/UL (4.8-10.8) Red Blood Count 3.73 M/UL (4.70-6.10) L Hemoglobin 10.7 G/DL (14.2-18.0) L Hematocrit 33.5 % (42.0-52.0) L Mean Corpuscular Volume 90 FL (80-99) Mean Corpuscular Hemoglobin 28.8 PG (27.0-31.0) Mean Corpuscular Hemoglobin Concent 32.1 G/DL (32.0-36.0) Red Cell Distribution Width 15.9 % (11.6-14.8) H Platelet Count 244 K/UL (150-450) Mean Platelet Volume 7.4 FL (6.5-10.1) Neutrophils (%) (Auto) 61.2 % (45.0-75.0) Lymphocytes (%) (Auto) 22.8 % (20.0-45.0) Monocytes (%) (Auto) 12.4 % (1.0-10.0) H Eosinophils (%) (Auto) 3.1 % (0.0-3.0) H Basophils (%) (Auto) 0.5 % (0.0-2.0) Sodium Level 142 MMOL/L (136-145) Potassium Level 4.0 MMOL/L (3.5-5.1) Chloride Level 105 MMOL/L (98-107) Carbon Dioxide Level 31 MMOL/L (21-32) Anion Gap 7 mmol/L (5-15) Blood Urea Nitrogen 7 mg/dL (7-18) Creatinine 0.7 MG/DL (0.55-1.30) Estimat Glomerular Filtration Rate mL/min (>60) Glucose Level 106 MG/DL (74-106) Calcium Level 9.3 MG/DL (8.5-10.1) Phosphorus Level 2.7 MG/DL (2.5-4.9) Magnesium Level 2.0 MG/DL (1.8-2.4) Total Bilirubin 0.2 MG/DL (0.2-1.0) Aspartate Amino Transf (AST/SGOT) 15 U/L (15-37) Alanine Aminotransferase (ALT/SGPT) 9 U/L (12-78) L Alkaline Phosphatase 116 U/L (46-116) Total Protein 7.7 G/DL (6.4-8.2) Albumin 2.1 G/DL (3.4-5.0) L Globulin 5.6 g/dL Albumin/Globulin Ratio 0.4 (1.0-2.7) L Current Medications Medications (Trade) Dose Ordered Sig/Dorie Route PRN Reason Start Time Stop Time Status Last Admin Dose Admin Acetaminophen (Tylenol) 650 mg Q4H PRN ORAL T>100.5 02/02/17 12:15 03/04/17 12:14 02/03/17 14:06 Albuterol/ Ipratropium (DuoNeb 0.5-3(2.5)mg/3ml) 3 ml Q4H PRN HHN Shortness of Breath 02/02/17 12:15 02/07/17 12:14 Amikacin Protocol (Amikacin pharmacy to dose) 1 ea DAILY PRN MISC Per rx protocol 02/04/17 12:30 03/06/17 12:29 Amikacin Sulfate 1200 mg/Dextrose 279.8 ml @ 559.6 mls/ hr Q36H IV 02/07/17 02:00 02/14/17 01:59 Dextrose (Dextrose 50%) STAT PRN IV Hypoglycemia 02/02/17 12:15 03/04/17 12:14 Docusate Sodium (Colace) 100 mg TWICE A DAY GT 02/05/17 19:30 03/07/17 19:29 02/05/17 20:12 Heparin Sodium (Porcine) (Heparin 5000 units/ml) 5,000 units EVERY 12 HOURS SUBQ 02/02/17 21:00 03/04/17 20:59 02/06/17 09:09 Insulin Aspart (NovoLOG) EVERY 6 HOURS SUBQ 02/06/17 12:00 03/04/17 16:29 Lacosamide (Vimpat) 100 mg EVERY 12 HOURS ORAL 02/03/17 09:00 03/05/17 08:59 02/06/17 09:08 Lactulose (Cephulac) 20 gm Q8H PRN ORAL CONSTIPATION 02/05/17 18:45 03/07/17 18:44 02/05/17 19:11 Levetiracetam (Keppra) 1,500 mg BID GT 02/03/17 09:00 03/05/17 08:59 02/06/17 09:08 Lorazepam (Ativan 2mg/ml 1ml) 2 mg Q2H PRN IV For Anxiety 02/02/17 12:15 02/09/17 12:14 Metoprolol Tartrate (Lopressor) 25 mg Q12HR ORAL 02/02/17 21:00 03/04/17 20:59 02/06/17 09:08 Morphine Sulfate (Morphine Sulfate) 4 mg Q4H PRN IVP Severe Pain (Pain Scale 7-10) 02/02/17 12:15 02/09/17 12:14 Ondansetron HCl (Zofran) 4 mg Q6H PRN IVP Nausea & Vomiting 02/02/17 12:15 03/04/17 12:14 Pantoprazole (Protonix) 40 mg DAILY IV 02/03/17 09:00 03/05/17 08:59 02/06/17 09:08 Piperacillin Sod/ Tazobactam Sod 4.5 gm/Sodium Chloride 110 ml @ 27.5 mls/hr Q8HR@0000,0800,1600 IVPB 02/04/17 00:00 02/11/17 00:00 02/06/17 08:36 Polyethylene Glycol (Miralax) 17 gm DAILYPRN PRN ORAL Constipation 02/02/17 12:15 11/16/17 12:14 02/04/17 12:45 Sodium Chloride 1,000 ml @ 75 mls/hr [id number] IV 02/02/17 13:00 03/04/17 12:59 02/05/17 20:13 Valproic Acid (Depakene) 500 mg Q8HR NG 02/03/17 06:00 03/05/17 05:59 02/06/17 05:30 JENNIFER BEVERLY Feb 06, 2017 11:03
[2017-02-06 12:00] VITALS: BP 130/66
--- NOTE | 2017-02-06 12:48 | Pulmonology Progress Note ---
Assessment/Plan Problems: (1) Aspiration pneumonia (2) Severe sepsis (3) Seizure disorder (4) Advanced dementia (5) G tube feedings Assessment/Plan improving respiratory treament check cultures tolerating feeding dvt prophylaxis Subjective ROS Limited/Unobtainable: Yes Constitutional: Reports: no symptoms HEENT: Repors: no symptoms Allergies: Coded Allergies: No Known Allergies (Unverified , 01/02/17) Objective Last 24 Hour Vital Signs Date Time Temp Pulse Resp B/P (MAP) Pulse Ox O2 Delivery O2 Flow Rate FiO2 02/06/17 12:00 98.7 68 20 130/66 99 T-piece 28 02/06/17 12:00 10.0 28 02/06/17 09:08 78 146/80 02/06/17 08:00 10.0 28 02/06/17 08:00 97.5 78 20 146/80 100 T-piece 28 02/06/17 07:49 75 02/06/17 06:42 99 T-piece 6.0 28 02/06/17 06:42 T-piece 6.0 28 02/06/17 04:11 97.9 66 20 135/81 99 T-piece 30 02/06/17 04:01 66 02/06/17 04:00 10.0 28 02/06/17 01:25 T-piece 6.0 28 02/06/17 01:25 100 T-piece 6.0 28 02/06/17 00:00 97.7 72 24 140/72 100 T-piece 28 02/06/17 00:00 64 02/05/17 20:12 62 135/60 02/05/17 20:10 98.4 64 20 154/72 100 T-piece 35 02/05/17 20:00 10.0 28 02/05/17 20:00 60 02/05/17 18:56 T-piece 10.0 35 02/05/17 18:56 99 T-piece 10.0 35 02/05/17 16:00 10.0 35 02/05/17 16:00 62 02/05/17 16:00 97.8 64 22 138/80 100 T-piece 35 02/05/17 13:59 T-piece 10.0 35 02/05/17 13:55 99 T-piece 10.0 35 Intake and Output 02/06/17 02/07/17 19:00 07:00 Intake Total 280.0 ml Balance 280.0 ml IV Total 160.0 ml Tube Feeding 60 ml Other 60 ml # Bowel Movements 3 Objective still has lots of secretions General Appearance: WD/WN HEENT: normocephalic, anicteric Respiratory/Chest: chest wall non-tender, decreased breath sounds, crackles/ rales Cardiovascular: normal peripheral pulses, normal rate, no JVD Abdomen: normal bowel sounds, no organomegaly Genitourinary: normal external genitalia Extremities: no cyanosis 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, abnormal gait Laboratory Tests 02/06/17 03:05: White Blood Count 7.0, Red Blood Count 3.73L, Hemoglobin 10.7L, Hematocrit 33.5L , Mean Corpuscular Volume 90, Mean Corpuscular Hemoglobin 28.8, Mean Corpuscular Hemoglobin Concent 32.1, Red Cell Distribution Width 15.9H, Platelet Count 244, Mean Platelet Volume 7.4, Neutrophils (%) (Auto) 61.2, Lymphocytes (%) (Auto) 22.8, Monocytes (%) (Auto) 12.4H, Eosinophils (%) (Auto) 3.1H, Basophils (%) (Auto) 0.5, Sodium Level 142, Potassium Level 4.0, Chloride Level 105, Carbon Dioxide Level 31, Anion Gap 7, Blood Urea Nitrogen 7, Creatinine 0.7, Estimat Glomerular Filtration Rate , Glucose Level 106, Calcium Level 9.3, Phosphorus Level 2.7, Magnesium Level 2.0, Total Bilirubin 0.2, Aspartate Amino Transf (AST/SGOT) 15, Alanine Aminotransferase (ALT/SGPT) 9L, Alkaline Phosphatase 116, Total Protein 7.7, Albumin 2.1L, Globulin 5.6, Albumin /Globulin Ratio 0.4L Current Medications Medications (Trade) Dose Ordered Sig/Dorie Route PRN Reason Start Time Stop Time Status Last Admin Dose Admin Acetaminophen (Tylenol) 650 mg Q4H PRN ORAL T>100.5 02/02/17 12:15 03/04/17 12:14 02/03/17 14:06 Albuterol/ Ipratropium (DuoNeb 0.5-3(2.5)mg/3ml) 3 ml Q4H PRN HHN Shortness of Breath 02/02/17 12:15 02/07/17 12:14 Amikacin Protocol (Amikacin pharmacy to dose) 1 ea DAILY PRN MISC Per rx protocol 02/04/17 12:30 03/06/17 12:29 Amikacin Sulfate 1200 mg/Dextrose 279.8 ml @ 559.6 mls/ hr Q36H IV 02/07/17 02:00 02/14/17 01:59 Dextrose (Dextrose 50%) STAT PRN IV Hypoglycemia 02/02/17 12:15 03/04/17 12:14 Docusate Sodium (Colace) 100 mg TWICE A DAY GT 02/05/17 19:30 03/07/17 19:29 02/05/17 20:12 Heparin Sodium (Porcine) (Heparin 5000 units/ml) 5,000 units EVERY 12 HOURS SUBQ 02/02/17 21:00 03/04/17 20:59 02/06/17 09:09 Insulin Aspart (NovoLOG) EVERY 6 HOURS SUBQ 02/06/17 12:00 03/04/17 16:29 02/06/17 11:37 Lacosamide (Vimpat) 100 mg EVERY 12 HOURS ORAL 02/03/17 09:00 03/05/17 08:59 02/06/17 09:08 Lactulose (Cephulac) 20 gm Q8H PRN ORAL CONSTIPATION 02/05/17 18:45 03/07/17 18:44 02/05/17 19:11 Levetiracetam (Keppra) 1,500 mg BID GT 02/03/17 09:00 03/05/17 08:59 02/06/17 09:08 Lorazepam (Ativan 2mg/ml 1ml) 2 mg Q2H PRN IV For Anxiety 02/02/17 12:15 02/09/17 12:14 Metoprolol Tartrate (Lopressor) 25 mg Q12HR ORAL 02/02/17 21:00 03/04/17 20:59 02/06/17 09:08 Metronidazole (Flagyl) 500 mg EVERY 8 HOURS ORAL 02/06/17 14:00 02/13/17 13:59 Morphine Sulfate (Morphine Sulfate) 4 mg Q4H PRN IVP Severe Pain (Pain Scale 7-10) 02/02/17 12:15 02/09/17 12:14 Ondansetron HCl (Zofran) 4 mg Q6H PRN IVP Nausea & Vomiting 02/02/17 12:15 03/04/17 12:14 Pantoprazole (Protonix) 40 mg DAILY IV 02/03/17 09:00 03/05/17 08:59 02/06/17 09:08 Polyethylene Glycol (Miralax) 17 gm DAILYPRN PRN ORAL Constipation 02/02/17 12:15 03/04/17 12:14 02/04/17 12:45 Sodium Chloride 1,000 ml @ 75 mls/hr [id number] IV 02/02/17 13:00 03/04/17 12:59 02/06/17 11:36 Valproic Acid (Depakene) 500 mg Q8HR NG 02/03/17 06:00 03/05/17 05:59 02/06/17 05:30 BAM SCHAEFFER Feb 06, 2017 12:48
--- NOTE | 2017-02-06 13:11 | General Progress Note ---
Assessment/Plan Problem List: (1) Severe sepsis ICD Codes: A41.9 - Sepsis, unspecified organism; R65.20 - Severe sepsis without septic shock SNOMED: 71681015 (2) UTI secondary to multidrug resistant Klebsiella pneumonia (3) Aspiration pneumonia ICD Codes: J69.0 - Pneumonitis due to inhalation of food and vomit SNOMED: 489501954 (4) Lactic acidemia ICD Codes: E87.2 - Acidosis SNOMED: 959046505 (5) Hyponatremia ICD Codes: E87.1 - Hypo-osmolality and hyponatremia SNOMED: 64986437 (6) Tracheostomy in place ICD Codes: Z93.0 - Tracheostomy status SNOMED: 547432028 (7) Diabetes mellitus ICD Codes: E11.9 - Type 2 diabetes mellitus without complications SNOMED: 98278885 (8) Seizure disorder ICD Codes: G40.909 - Epilepsy, unspecified, not intractable, without status epilepticus SNOMED: 029110430 (9) HTN (hypertension) ICD Codes: I10 - Essential (primary) hypertension SNOMED: 98893005 (10) Advanced dementia ICD Codes: F03.90 - Unspecified dementia without behavioral disturbance SNOMED: 95714071 (11) S/P percutaneous endoscopic gastrostomy (PEG) tube placement ICD Codes: Z93.1 - Gastrostomy status SNOMED: 057781228 (12) Functional quadriplegia ICD Codes: R53.2 - Functional quadriplegia SNOMED: 155479912453929 (13) Decubitus ulcer of sacral region, stage 4 ICD Codes: L89.154 - Pressure ulcer of sacral region, stage 4 SNOMED: 270799176, 129550502 (14) Decubitus ulcer, heel, right, unstageable ICD Codes: L89.610 - Pressure ulcer of right heel, unstageable SNOMED: 832324341 Status: stable Assessment/Plan Appreciate ID rec's D/c zosyn (02/02-02/06) D/c vanco (02/02-02/04) Cont amikacin per pharmacy (02/04-) x 1 more week per ID Cont flagyl 500mg q8h x 1 more week per ID F/u urine cx--MDR Klebsiella pneumonia, Klebsiella #2, Psedumonas F/u blood cx--ngtd IVFs Trend lactate Trend BMP, CBC Cont SNF meds O2 via trach collar PRN for O2 sat>92% Suction frequently Nebs ATC and PRN Pain control, supportive care, bowel regimen Cont tube feeds SW/CM consulted for d/c back to SNF, likely Sun vs Mon DVT Prophylaxis: SCD, HSQ Code Status: Full Hospital Classification Declaration: Based on this initial evaluation, and depending on the patient's clinical course, I anticipate that this patient will require hospitalization for 1-2 days for severe sepsis, PNA, UTI and close respiratory/hemodynamic monitoring. Disposition: Once the patient is stable to leave the hospital, I anticipate the patient will likely be discharged to the following environment: back to SNF I spent 40 minutes on this patient's case, and 24 minutes were dedicated to counseling and/or care coordination. Discussed with patient/family, nursing staff, SW/CM, pulm, ID regarding clinical status, treatment course, and disposition planning. D/w ID re MDR UTI, change of abx Time of note may not reflect time of encounter. Subjective Date patient seen: Feb 06, 2017 Time patient seen: 12:00 Allergies: Coded Allergies: No Known Allergies (Unverified , 01/02/17) Subjective No acute o/n events Afebrile Tachycardia improved Lactic acid has normalized Urine cx showing MDR Klebsiella pneumoniae and pseudmonas Cont on amikacin Pt cont on trach, non-verbal Objective Last 24 Hour Vital Signs Date Time Temp Pulse Resp B/P (MAP) Pulse Ox O2 Delivery O2 Flow Rate FiO2 02/06/17 12:38 T-piece 6.0 28 02/06/17 12:38 100 T-piece 6.0 02/06/17 12:01 62 02/06/17 12:00 98.7 68 20 130/66 99 T-piece 28 02/06/17 12:00 10.0 28 02/06/17 09:08 78 146/80 02/06/17 08:00 10.0 28 02/06/17 08:00 97.5 78 20 146/80 100 T-piece 02/06/17 07:49 75 02/06/17 06:42 99 T-piece 6.0 28 02/06/17 06:42 T-piece 6.0 02/06/17 04:11 97.9 66 20 135/81 99 T-piece 30 02/06/17 04:01 66 02/06/17 04:00 10.0 28 02/06/17 01:25 T-piece 6.0 28 02/06/17 01:25 100 T-piece 6.0 28 02/06/17 00:00 97.7 72 24 140/72 100 T-piece 28 02/06/17 00:00 64 02/05/17 20:12 62 135/60 02/05/17 20:10 98.4 64 20 154/72 100 T-piece 35 02/05/17 20:00 10.0 28 02/05/17 20:00 60 02/05/17 18:56 T-piece 10.0 35 02/05/17 18:56 99 T-piece 10.0 35 02/05/17 16:00 10.0 35 02/05/17 16:00 62 02/05/17 16:00 97.8 64 22 138/80 100 T-piece 35 02/05/17 13:59 T-piece 10.0 35 02/05/17 13:55 99 T-piece 10.0 35 Intake and Output 02/06/17 02/07/17 19:00 07:00 Intake Total 280.0 ml Balance 280.0 ml IV Total 160.0 ml Tube Feeding 60 ml Other 60 ml # Bowel Movements 3 Laboratory Tests 02/06/17 03:05: White Blood Count 7.0, Red Blood Count 3.73L, Hemoglobin 10.7L, Hematocrit 33.5L , Mean Corpuscular Volume 90, Mean Corpuscular Hemoglobin 28.8, Mean Corpuscular Hemoglobin Concent 32.1, Red Cell Distribution Width 15.9H, Platelet Count 244, Mean Platelet Volume 7.4, Neutrophils (%) (Auto) 61.2, Lymphocytes (%) (Auto) 22.8, Monocytes (%) (Auto) 12.4H, Eosinophils (%) (Auto) 3.1H, Basophils (%) (Auto) 0.5, Sodium Level 142, Potassium Level 4.0, Chloride Level 105, Carbon Dioxide Level 31, Anion Gap 7, Blood Urea Nitrogen 7, Creatinine 0.7, Estimat Glomerular Filtration Rate , Glucose Level 106, Calcium Level 9.3, Phosphorus Level 2.7, Magnesium Level 2.0, Total Bilirubin 0.2, Aspartate Amino Transf (AST/SGOT) 15, Alanine Aminotransferase (ALT/SGPT) 9L, Alkaline Phosphatase 116, Total Protein 7.7, Albumin 2.1L, Globulin 5.6, Albumin /Globulin Ratio 0.4L Height (Feet): 6 Height (Inches): 1.00 Weight (Pounds): 170 Objective General: non-verbal, bed bound, occasionally opens eyes but not to command Head: normocephalic, without obvious abnormality, atraumatic Eyes: conjunctivae/corneas clear. PERRL Throat: lips, mucosa, and tongue normal. MMM Neck: supple, symmetrical, trachea midline, and no JVD, +tracheostomy c/d/i Lungs: +rhonchi b/l Heart: regular rate and rhythm, S1, S2 normal, no murmur, click, rub or gallop Abdomen: soft, non-tender, non-distended, bowel sounds normal; no masses or organomegaly Extremities: extremities normal, atraumatic, no cyanosis or edema Pulses: 2+ and symmetric Skin: skin color, texture, turgor normal; no rashes or lesions Neurologic: unable to assess as pt does not follow commands Travis Hinojosa M.D. Feb 06, 2017 13:11
[2017-02-06] MEDS: metroNIDAZOLE 500mg tab ORAL SCH ×2 (13:15→21:44)
[2017-02-06 16:00] VITALS: BP 135/71
[2017-02-06 19:51] VITALS: BP 141/73
[2017-02-07] VITALS (7 sets, daily range): BP systolic 117–145; BP diastolic 48–82
[2017-02-07] MEDS: D5W IV SCH (01:42)
[2017-02-07] MEDS: AMIKACIN IV SCH (01:42)
[2017-02-07 04:54] LABS: BASOPHILS % (AUTO) 0.8 % (0.0-2.0); EOSINOPHILS % (AUTO) 3.5 % (0.0-3.0); LYMPHOCYTES % (AUTO) 32.1 % (20.0-45.0); MEAN CORPUSCULAR HEMOGLOBIN 29.2 PG (27.0-31.0); MEAN CORPUSCULAR HGB CONC 32.7 G/DL (32.0-36.0); MEAN CORPUSCULAR VOLUME 89 FL (80-99); MEAN PLATELET VOLUME 7.4 FL (6.5-10.1); MONOCYTES % (AUTO) 12.8 % (1.0-10.0); NEUTROPHILS % (AUTO) 50.8 % (45.0-75.0); PLATELET COUNT 263 K/UL (150-450); RED BLOOD COUNT 3.49 M/UL (4.70-6.10); RED CELL DISTRIBUTION WIDTH 15.9 % (11.6-14.8); WHITE BLOOD COUNT 5.5 K/UL (4.8-10.8)
[2017-02-07 05:28] LABS: ANION GAP 5 mmol/L (5-15); CALCIUM 8.9 MG/DL (8.5-10.1); CARBON DIOXIDE 31 MMOL/L (21-32); CHLORIDE 102 MMOL/L (98-107); CREATININE 0.6 MG/DL (0.55-1.30); SODIUM 138 MMOL/L (136-145)
[2017-02-07] MEDS: Valproic Acid 250mg/5ml Liquid NG SCH ×3 (05:41→22:07)
[2017-02-07] MEDS: metroNIDAZOLE 500mg tab ORAL SCH ×3 (05:41→22:07)
[2017-02-07] MEDS: NovoLOG Insulin Flexpen SUBQ SCH ×4 (05:41→23:29)
[2017-02-07] MEDS: Pantoprazole Inj IV SCH (09:09)
[2017-02-07] MEDS: Docusate 100mg/10ml Liq GT SCH ×2 (09:09→17:05)
[2017-02-07] MEDS: levETIRAcetam 500mg/5ml Liquid GT SCH ×2 (09:09→17:04)
[2017-02-07] MEDS: Lacosamide 100 MG TABLET ORAL SCH ×2 (09:09→21:01)
[2017-02-07] MEDS: Metoprolol 25mg tab ORAL SCH (09:09)
[2017-02-07] MEDS: Heparin 5000 units/ml inj SUBQ SCH ×2 (09:10→21:03)
--- NOTE | 2017-02-07 11:45 | Pulmonology Progress Note ---
Assessment/Plan Problems: (1) Aspiration pneumonia (2) Severe sepsis (3) Seizure disorder (4) Advanced dementia (5) G tube feedings Assessment/Plan improving respiratory treament check cultures tolerating feeding dvt prophylaxis med/surg Subjective ROS Limited/Unobtainable: No Constitutional: Reports: no symptoms Respiratory: Reports: no symptoms Allergies: Coded Allergies: No Known Allergies (Unverified , 01/02/17) Objective Last 24 Hour Vital Signs Date Time Temp Pulse Resp B/P (MAP) Pulse Ox O2 Delivery O2 Flow Rate FiO2 02/07/17 09:09 62 125/57 02/07/17 08:00 97.6 62 18 125/57 100 T-piece 28 02/07/17 08:00 10.0 28 02/07/17 07:51 60 02/07/17 06:55 T-piece 6.0 28 02/07/17 06:55 91 16 Trach Collar 8.0 28 02/07/17 06:55 98 T-piece 6.0 28 02/07/17 04:00 10.0 28 02/07/17 04:00 97.5 61 18 145/48 100 T-piece 02/07/17 04:00 65 02/07/17 01:29 100 T-piece 6.0 28 02/07/17 01:29 T-piece 6.0 28 02/07/17 00:20 97.9 66 18 137/70 100 T-piece 02/07/17 00:00 65 02/07/17 00:00 10.0 28 02/07/17 00:00 97.9 61 20 143/82 100 T-piece 28 02/06/17 21:03 T-piece 6.0 28 02/06/17 21:03 100 T-piece 6.0 28 02/06/17 20:10 74 141/73 02/06/17 20:00 61 02/06/17 19:53 10.0 28 02/06/17 19:51 97.8 74 20 141/73 100 T-piece 28 02/06/17 16:00 10.0 28 02/06/17 16:00 98.3 70 20 135/71 98 T-piece 35 02/06/17 15:31 70 02/06/17 12:38 T-piece 6.0 28 02/06/17 12:38 100 T-piece 6.0 28 02/06/17 12:01 62 02/06/17 12:00 98.7 68 20 130/66 99 T-piece 28 02/06/17 12:00 10.0 28 Objective still has lots of secretions General Appearance: WD/WN HEENT: normocephalic, anicteric Respiratory/Chest: chest wall non-tender, lungs clear, crackles/rales, rhonchi Cardiovascular: normal peripheral pulses, normal rate Abdomen: normal bowel sounds, soft, non tender Extremities: no cyanosis, no clubbing Skin: no lesions Laboratory Tests 02/07/17 03:30: White Blood Count 5.5, Red Blood Count 3.49L, Hemoglobin 10.2L, Hematocrit 31.2L , Mean Corpuscular Volume 89, Mean Corpuscular Hemoglobin 29.2, Mean Corpuscular Hemoglobin Concent 32.7, Red Cell Distribution Width 15.9H, Platelet Count 263, Mean Platelet Volume 7.4, Neutrophils (%) (Auto) 50.8, Lymphocytes (%) (Auto) 32.1, Monocytes (%) (Auto) 12.8H, Eosinophils (%) (Auto) 3.5H, Basophils (%) (Auto) 0.8, Sodium Level 138, Potassium Level 4.0, Chloride Level 102, Carbon Dioxide Level 31, Anion Gap 5, Blood Urea Nitrogen 5L, Creatinine 0.6, Estimat Glomerular Filtration Rate , Glucose Level 152H, Calcium Level 8.9 Current Medications Medications (Trade) Dose Ordered Sig/Dorie Route PRN Reason Start Time Stop Time Status Last Admin Dose Admin Acetaminophen (Tylenol) 650 mg Q4H PRN ORAL T>100.5 02/02/17 12:15 03/04/17 12:14 02/03/17 14:06 Albuterol/ Ipratropium (DuoNeb 0.5-3(2.5)mg/3ml) 3 ml Q4H PRN HHN Shortness of Breath 02/02/17 12:15 02/07/17 12:14 Amikacin Protocol (Amikacin pharmacy to dose) 1 ea DAILY PRN MISC Per rx protocol 02/04/17 12:30 03/06/17 12:29 Amikacin Sulfate 1200 mg/Dextrose 279.8 ml @ 559.6 mls/ hr Q36H IV 02/07/17 02:00 02/14/17 01:59 02/07/17 01:42 Dextrose (Dextrose 50%) STAT PRN IV Hypoglycemia 02/02/17 12:15 03/04/17 12:14 Docusate Sodium (Colace) 100 mg TWICE A DAY GT 02/05/17 19:30 03/07/17 19:29 02/07/17 09:09 Heparin Sodium (Porcine) (Heparin 5000 units/ml) 5,000 units EVERY 12 HOURS SUBQ 02/02/17 21:00 03/04/17 20:59 02/07/17 09:10 Insulin Aspart (NovoLOG) EVERY 6 HOURS SUBQ 02/06/17 12:00 03/04/17 16:29 02/07/17 05:41 Lacosamide (Vimpat) 100 mg EVERY 12 HOURS ORAL 02/03/17 09:00 03/05/17 08:59 02/07/17 09:09 Lactulose (Cephulac) 20 gm Q8H PRN ORAL CONSTIPATION 02/05/17 18:45 03/07/17 18:44 02/05/17 19:11 Levetiracetam (Keppra) 1,500 mg BID GT 02/03/17 09:00 03/05/17 08:59 02/07/17 09:09 Lorazepam (Ativan 2mg/ml 1ml) 2 mg Q2H PRN IV For Anxiety 02/02/17 12:15 02/09/17 12:14 Metoprolol Tartrate (Lopressor) 25 mg Q12HR ORAL 02/02/17 21:00 03/04/17 20:59 02/07/17 09:09 Metronidazole (Flagyl) 500 mg EVERY 8 HOURS ORAL 02/06/17 14:00 02/13/17 13:59 02/07/17 05:41 Morphine Sulfate (Morphine Sulfate) 4 mg Q4H PRN IVP Severe Pain (Pain Scale 7-10) 02/02/17 12:15 02/09/17 12:14 Ondansetron HCl (Zofran) 4 mg Q6H PRN IVP Nausea & Vomiting 02/02/17 12:15 03/04/17 12:14 Pantoprazole (Protonix) 40 mg DAILY IV 02/03/17 09:00 03/05/17 08:59 02/07/17 09:09 Polyethylene Glycol (Miralax) 17 gm DAILYPRN PRN ORAL Constipation 02/02/17 12:15 03/04/17 12:14 02/04/17 12:45 Sodium Chloride 1,000 ml @ 75 mls/hr [id number] IV 02/02/17 13:00 03/04/17 12:59 02/06/17 23:07 Valproic Acid (Depakene) 500 mg Q8HR NG 02/03/17 06:00 03/05/17 05:59 02/07/17 05:41 BAM SCHAEFFER Feb 07, 2017 11:45
--- NOTE | 2017-02-07 12:06 | Diagnostic Imaging Report ---
Indication: Dyspnea Comparison: 02/04/17 A single view chest radiograph was obtained. Findings: Right basilar pulmonary infiltrate is present. Heart size is borderline and stable. Tracheostomy again noted. Impression: Suspected pneumonia involving the right lung base
--- NOTE | 2017-02-07 13:43 | Cardiac Electrophysiology PN ---
Subjective Subjective [id number] Objective Last 24 Hour Vital Signs Date Time Temp Pulse Resp B/P (MAP) Pulse Ox O2 Delivery O2 Flow Rate FiO2 02/07/17 12:45 T-piece 6.0 28 02/07/17 12:45 99 T-piece 6.0 28 02/07/17 12:00 10.0 28 02/07/17 12:00 98.0 63 19 117/74 100 T-piece 28 02/07/17 09:09 62 125/57 02/07/17 08:00 97.6 62 18 125/57 100 T-piece 28 02/07/17 08:00 10.0 28 02/07/17 07:51 60 02/07/17 06:55 T-piece 6.0 28 02/07/17 06:55 91 16 Trach Collar 8.0 28 02/07/17 06:55 98 T-piece 6.0 28 02/07/17 04:00 10.0 28 02/07/17 04:00 97.5 61 18 145/48 100 T-piece 02/07/17 04:00 65 02/07/17 01:29 100 T-piece 6.0 28 02/07/17 01:29 T-piece 6.0 28 02/07/17 00:20 97.9 66 18 137/70 100 T-piece 02/07/17 00:00 65 02/07/17 00:00 10.0 28 02/07/17 00:00 97.9 61 20 143/82 100 T-piece 28 02/06/17 21:03 T-piece 6.0 28 02/06/17 21:03 100 T-piece 6.0 28 02/06/17 20:10 74 141/73 02/06/17 20:00 61 02/06/17 19:53 10.0 28 02/06/17 19:51 97.8 74 20 141/73 100 T-piece 28 02/06/17 16:00 10.0 28 02/06/17 16:00 98.3 70 20 135/71 98 T-piece 35 02/06/17 15:31 70 Laboratory Tests Test 02/07/17 03:30 White Blood Count 5.5 K/UL (4.8-10.8) Red Blood Count 3.49 M/UL (4.70-6.10) L Hemoglobin 10.2 G/DL (14.2-18.0) L Hematocrit 31.2 % (42.0-52.0) L Mean Corpuscular Volume 89 FL (80-99) Mean Corpuscular Hemoglobin 29.2 PG (27.0-31.0) Mean Corpuscular Hemoglobin Concent 32.7 G/DL (32.0-36.0) Red Cell Distribution Width 15.9 % (11.6-14.8) H Platelet Count 263 K/UL (150-450) Mean Platelet Volume 7.4 FL (6.5-10.1) Neutrophils (%) (Auto) 50.8 % (45.0-75.0) Lymphocytes (%) (Auto) 32.1 % (20.0-45.0) Monocytes (%) (Auto) 12.8 % (1.0-10.0) H Eosinophils (%) (Auto) 3.5 % (0.0-3.0) H Basophils (%) (Auto) 0.8 % (0.0-2.0) Sodium Level 138 MMOL/L (136-145) Potassium Level 4.0 MMOL/L (3.5-5.1) Chloride Level 102 MMOL/L (98-107) Carbon Dioxide Level 31 MMOL/L (21-32) Anion Gap 5 mmol/L (5-15) Blood Urea Nitrogen 5 mg/dL (7-18) L Creatinine 0.6 MG/DL (0.55-1.30) Estimat Glomerular Filtration Rate mL/min (>60) Glucose Level 152 MG/DL (74-106) H Calcium Level 8.9 MG/DL (8.5-10.1) Microbiology Date/Time Source Procedure Growth Status 02/06/17 09:15 Sputum Gram Stain - Final Resulted 02/06/17 09:15 Sputum Sputum Culture Pending Resulted ANA ROSA TAYLOR Feb 07, 2017 13:42
--- NOTE | 2017-02-07 16:07 | General Progress Note ---
Assessment/Plan Problem List: (1) Severe sepsis ICD Codes: A41.9 - Sepsis, unspecified organism; R65.20 - Severe sepsis without septic shock SNOMED: 06174009 (2) UTI secondary to multidrug resistant Klebsiella pneumonia (3) Aspiration pneumonia ICD Codes: J69.0 - Pneumonitis due to inhalation of food and vomit SNOMED: 668317903 (4) Lactic acidemia ICD Codes: E87.2 - Acidosis SNOMED: 437921742 (5) Hyponatremia ICD Codes: E87.1 - Hypo-osmolality and hyponatremia SNOMED: 95744478 (6) Tracheostomy in place ICD Codes: Z93.0 - Tracheostomy status SNOMED: 799976991 (7) Diabetes mellitus ICD Codes: E11.9 - Type 2 diabetes mellitus without complications SNOMED: 70132960 (8) Seizure disorder ICD Codes: G40.909 - Epilepsy, unspecified, not intractable, without status epilepticus SNOMED: 731120558 (9) HTN (hypertension) ICD Codes: I10 - Essential (primary) hypertension SNOMED: 76959711 (10) Advanced dementia ICD Codes: F03.90 - Unspecified dementia without behavioral disturbance SNOMED: 08299996 (11) S/P percutaneous endoscopic gastrostomy (PEG) tube placement ICD Codes: Z93.1 - Gastrostomy status SNOMED: 349855104 (12) Functional quadriplegia ICD Codes: R53.2 - Functional quadriplegia SNOMED: 585128219362456 (13) Decubitus ulcer of sacral region, stage 4 ICD Codes: L89.154 - Pressure ulcer of sacral region, stage 4 SNOMED: 397654431, 336646920 (14) Decubitus ulcer, heel, right, unstageable ICD Codes: L89.610 - Pressure ulcer of right heel, unstageable SNOMED: 381765219 (15) Junctional cardiac arrhythmia ICD Codes: I49.8 - Other specified cardiac arrhythmias SNOMED: 583906792 (16) Paroxysmal a-fib ICD Codes: I48.0 - Paroxysmal atrial fibrillation SNOMED: 106048356 Status: stable Assessment/Plan Appreciate ID rec's D/c zosyn (02/02-02/06) D/c vanco (02/02-02/04) Cont amikacin per pharmacy (02/04-) x 6 days per ID Cont flagyl 500mg q8h x 6 days per ID F/u urine cx--MDR Klebsiella pneumonia, Klebsiella #2, Psedumonas F/u blood cx--ngtd D/c IVFs Cardiology consulted given junctional arrythmia--MTP dose lowered to 12.5mg BID Trend BMP, CBC Cont SNF meds O2 via trach collar PRN for O2 sat>92% Suction frequently Nebs ATC and PRN Pain control, supportive care, bowel regimen Cont tube feeds SW/CM consulted for d/c back to SNF, likely tomorrow DVT Prophylaxis: SCD, HSQ Code Status: Full Hospital Classification Declaration: Based on this initial evaluation, and depending on the patient's clinical course, I anticipate that this patient will require hospitalization for 1-2 days for severe sepsis, PNA, UTI and close respiratory/hemodynamic monitoring. Disposition: Once the patient is stable to leave the hospital, I anticipate the patient will likely be discharged to the following environment: back to SNF I spent 40 minutes on this patient's case, and 22 minutes were dedicated to counseling and/or care coordination. Discussed with patient/family, nursing staff, SW/CM, pulm, ID regarding clinical status, treatment course, and disposition planning. D/w cardiology re junctional rhythm, lowering MTP Time of note may not reflect time of encounter. Subjective Date patient seen: Feb 07, 2017 Time patient seen: 16:07 ROS Limited/Unobtainable: Yes Allergies: Coded Allergies: No Known Allergies (Unverified , 01/02/17) Subjective No acute o/n events Afebrile Tachycardia improved Lactic acid has normalized Urine cx showing MDR Klebsiella pneumoniae and pseudmonas Cont on amikacin and flagyl Pt cont on trach, non-verbal Objective Last 24 Hour Vital Signs Date Time Temp Pulse Resp B/P (MAP) Pulse Ox O2 Delivery O2 Flow Rate FiO2 02/07/17 12:45 T-piece 6.0 28 02/07/17 12:45 99 T-piece 6.0 28 02/07/17 12:00 10.0 28 02/07/17 12:00 98.0 63 19 117/74 100 T-piece 28 02/07/17 11:48 74 02/07/17 09:09 62 125/57 02/07/17 08:00 97.6 62 18 125/57 100 T-piece 28 02/07/17 08:00 10.0 28 02/07/17 07:51 60 02/07/17 06:55 T-piece 6.0 28 02/07/17 06:55 91 16 Trach Collar 8.0 28 02/07/17 06:55 98 T-piece 6.0 28 02/07/17 04:00 10.0 28 02/07/17 04:00 97.5 61 18 145/48 100 T-piece 02/07/17 04:00 65 02/07/17 01:29 100 T-piece 6.0 28 02/07/17 01:29 T-piece 6.0 28 02/07/17 00:20 97.9 66 18 137/70 100 T-piece 02/07/17 00:00 65 02/07/17 00:00 10.0 28 02/07/17 00:00 97.9 61 20 143/82 100 T-piece 28 02/06/17 21:03 T-piece 6.0 28 02/06/17 21:03 100 T-piece 6.0 02/06/17 20:10 74 141/73 02/06/17 20:00 61 02/06/17 19:53 10.0 28 02/06/17 19:51 97.8 74 20 141/73 100 T-piece 28 Intake and Output 02/07/17 02/08/17 19:00 07:00 Intake Total 450 ml Balance 450 ml IV Total 450 ml Laboratory Tests 02/07/17 03:30: White Blood Count 5.5, Red Blood Count 3.49L, Hemoglobin 10.2L, Hematocrit 31.2L , Mean Corpuscular Volume 89, Mean Corpuscular Hemoglobin 29.2, Mean Corpuscular Hemoglobin Concent 32.7, Red Cell Distribution Width 15.9H, Platelet Count 263, Mean Platelet Volume 7.4, Neutrophils (%) (Auto) 50.8, Lymphocytes (%) (Auto) 32.1, Monocytes (%) (Auto) 12.8H, Eosinophils (%) (Auto) 3.5H, Basophils (%) (Auto) 0.8, Sodium Level 138, Potassium Level 4.0, Chloride Level 102, Carbon Dioxide Level 31, Anion Gap 5, Blood Urea Nitrogen 5L, Creatinine 0.6, Estimat Glomerular Filtration Rate , Glucose Level 152H, Calcium Level 8.9 Height (Feet): 6 Height (Inches): 1.00 Weight (Pounds): 170 Objective General: non-verbal, bed bound, occasionally opens eyes but not to command Head: normocephalic, without obvious abnormality, atraumatic Eyes: conjunctivae/corneas clear. PERRL Throat: lips, mucosa, and tongue normal. MMM Neck: supple, symmetrical, trachea midline, and no JVD, +tracheostomy c/d/i Lungs: +rhonchi b/l Heart: regular rate and rhythm, S1, S2 normal, no murmur, click, rub or gallop Abdomen: soft, non-tender, non-distended, bowel sounds normal; no masses or organomegaly Extremities: extremities normal, atraumatic, no cyanosis or edema Pulses: 2+ and symmetric Skin: skin color, texture, turgor normal; no rashes or lesions Neurologic: unable to assess as pt does not follow commands Travis Hinojosa M.D. Feb 07, 2017 16:07
--- NOTE | 2017-02-07 17:00 | Cardiology Report ---
APPROVED REPORT EXAM: Two-dimensional and M-mode echocardiogram with Doppler and color Doppler. INDICATION Congestive Heart Failure M-Mode DIMENSIONS IVSd1.3 (0.7-1.1cm)Left Atrium (MM)3.4 (1.6-4.0cm) LVDd4.5 (3.5-5.6cm)Aortic Root2.9 (2.0-3.7cm) PWd0.9 (0.7-1.1cm)Aortic Cusp Exc.1.8 (1.5-2.0cm) LVDs2.2 (2.5-4.0cm) PWs2.3 cm Normal left ventricular chamber size, systolic function and wall motion. Left ventricular ejection fraction estimated to be 55 %. Mild left ventricular hypertrophy. Anterior Echo-free space, may be due to pericardial fat or effusion. All other cardiac chamber sizes are within normal limits. Mild focal aortic valve sclerosis with adequate cusp excursion. Mild thickened mitral valve leaflets with normal excursion. Mild mitral annulus and aortic root calcification. Normal pulmonic valve structure. Normal tricuspid valve structure. IVC could not be obtained due to GI tube. A color flow and spectral Doppler study was performed and revealed: Trace aortic regurgitation. Mild to moderate mitral regurgitation. Mitral diastolic velocities suggest reduced left ventricular relaxation c/w mild LV diastolic dysfunction (Grade I ). Mild tricuspid regurgitation. Tricuspid systolic velocities suggests peak right ventricular systolic pressure of 35 mmHg, consistent with mild pulmonary hypertension. Trace pulmonic regurgitation present.
[2017-02-07] MEDS: Metoprolol Tartrate 12.5mg TAB GT SCH (21:01)
[2017-02-08] VITALS: BP 133/70
[2017-02-08 04:00] VITALS: BP 133/69
[2017-02-08] MEDS: Valproic Acid 250mg/5ml Liquid NG SCH ×2 (05:55→13:50)
[2017-02-08] MEDS: metroNIDAZOLE 500mg tab ORAL SCH ×2 (05:55→13:50)
[2017-02-08] MEDS: NovoLOG Insulin Flexpen SUBQ SCH ×2 (05:57→12:58)
[2017-02-08 06:41] LABS: THYROID STIMULATING HORMONE 1.391 uiU/mL (0.360-3.740)
[2017-02-08 08:00] VITALS: BP 138/68
[2017-02-08] MEDS ORDERED: LOPRESSOR25 M1 GT (10:22)
[2017-02-08] MEDS ORDERED: Amikacin Rx to dose MISC (10:22)
[2017-02-08] MEDS ORDERED: FLAGYL500 MG ORAL (10:22)
--- NOTE | 2017-02-08 10:34 | Pulmonology Progress Note ---
Assessment/Plan Problems: (1) Aspiration pneumonia (2) Severe sepsis (3) Seizure disorder (4) Advanced dementia (5) G tube feedings Assessment/Plan improving respiratory treament check cultures tolerating feeding dvt prophylaxis med/surg dc planning Subjective ROS Limited/Unobtainable: Yes Allergies: Coded Allergies: No Known Allergies (Unverified , 01/02/17) Objective Last 24 Hour Vital Signs Date Time Temp Pulse Resp B/P (MAP) Pulse Ox O2 Delivery O2 Flow Rate FiO2 02/08/17 08:35 100 T-piece 6.0 28 02/08/17 08:35 T-piece 6.0 28 02/08/17 08:35 100 T-piece 6.0 28 02/08/17 08:00 62 02/08/17 08:00 98.2 67 19 138/68 100 T-piece 28 02/08/17 04:00 10.0 28 02/08/17 04:00 98.1 71 20 133/69 99 T-piece 02/08/17 04:00 71 02/08/17 01:30 100 T-piece 6.0 28 02/08/17 01:30 T-piece 6.0 28 02/08/17 00:18 10.0 28 02/08/17 00:00 98.3 64 18 133/70 100 T-piece 28 02/08/17 00:00 64 02/07/17 21:01 64 136/76 02/07/17 20:03 T-piece 6.0 28 02/07/17 20:03 100 T-piece 6.0 28 02/07/17 20:00 97.7 64 18 136/76 100 T-piece 28 02/07/17 20:00 10.0 28 02/07/17 20:00 64 02/07/17 16:00 97.7 62 19 127/59 100 T-piece 28 02/07/17 16:00 10.0 28 02/07/17 15:41 1 02/07/17 12:45 T-piece 6.0 28 02/07/17 12:45 99 T-piece 6.0 28 02/07/17 12:00 10.0 28 02/07/17 12:00 98.0 63 19 117/74 100 T-piece 28 02/07/17 11:48 74 Objective still has lots of secretions General Appearance: WD/WN HEENT: normocephalic, atraumatic Respiratory/Chest: chest wall non-tender, lungs clear, decreased breath sounds , accessory muscle use Cardiovascular: normal peripheral pulses, normal rate Abdomen: normal bowel sounds, no organomegaly Genitourinary: normal external genitalia Extremities: no clubbing Skin: no lesions Neurologic/Psychiatric: cellophane tester II-XII grossly normal, no motor/sensory deficits Microbiology Date/Time Source Procedure Growth Status 02/06/17 09:15 Sputum Gram Stain - Final Resulted 02/06/17 09:15 Sputum Sputum Culture - Preliminary Resulted Laboratory Tests 02/08/17 03:00: Troponin I 0.000, Pro-B-Type Natriuretic Peptide 864H, Thyroid Stimulating Hormone (TSH) 1.391, Free Thyroxine 1.80H Current Medications Medications (Trade) Dose Ordered Sig/Dorie Route PRN Reason Start Time Stop Time Status Last Admin Dose Admin Acetaminophen (Tylenol) 650 mg Q4H PRN ORAL T>100.5 02/02/17 12:15 03/04/17 12:14 02/03/17 14:06 Amikacin Protocol (Amikacin pharmacy to dose) 1 ea DAILY PRN MISC Per rx protocol 02/04/17 12:30 03/06/17 12:29 Amikacin Sulfate 1200 mg/Dextrose 279.8 ml @ 559.6 mls/ hr Q36H IV 02/07/17 02:00 02/14/17 01:59 02/07/17 01:42 Dextrose (Dextrose 50%) STAT PRN IV Hypoglycemia 02/02/17 12:15 03/04/17 12:14 Docusate Sodium (Colace) 100 mg TWICE A DAY GT 02/05/17 19:30 03/07/17 19:29 02/07/17 17:05 Heparin Sodium (Porcine) (Heparin 5000 units/ml) 5,000 units EVERY 12 HOURS SUBQ 02/02/17 21:00 03/04/17 20:59 02/07/17 21:03 Insulin Aspart (NovoLOG) EVERY 6 HOURS SUBQ 02/06/17 12:00 03/04/17 16:29 02/08/17 05:57 Lacosamide (Vimpat) 100 mg EVERY 12 HOURS ORAL 02/03/17 09:00 03/05/17 08:59 02/07/17 21:01 Lactulose (Cephulac) 20 gm Q8H PRN ORAL CONSTIPATION 02/05/17 18:45 03/07/17 18:44 02/05/17 19:11 Levetiracetam (Keppra) 1,500 mg BID GT 02/03/17 09:00 03/05/17 08:59 02/07/17 17:04 Lorazepam (Ativan 2mg/ml 1ml) 2 mg Q2H PRN IV For Anxiety 02/02/17 12:15 02/09/17 12:14 Metoprolol Tartrate (Lopressor) 12.5 mg Q12HR GT 02/07/17 21:00 03/09/17 20:59 02/07/17 21:01 Metronidazole (Flagyl) 500 mg EVERY 8 HOURS ORAL 02/06/17 14:00 02/13/17 13:59 02/08/17 05:55 Morphine Sulfate (Morphine Sulfate) 4 mg Q4H PRN IVP Severe Pain (Pain Scale 7-10) 02/02/17 12:15 02/09/17 12:14 Ondansetron HCl (Zofran) 4 mg Q6H PRN IVP Nausea & Vomiting 02/02/17 12:15 03/04/17 12:14 Pantoprazole (Protonix) 40 mg DAILY IV 02/03/17 09:00 03/05/17 08:59 02/07/17 09:09 Polyethylene Glycol (Miralax) 17 gm DAILYPRN PRN ORAL Constipation 02/02/17 12:15 03/04/17 12:14 02/04/17 12:45 Valproic Acid (Depakene) 500 mg Q8HR NG 02/03/17 06:00 03/05/17 05:59 02/08/17 05:55 BAM SCHAEFFER Feb 08, 2017 10:34
--- NOTE | 2017-02-08 10:45 | Consultation ---
DATE OF CONSULTATION: 02/07/2017 CARDIOLOGY CONSULTATION CONSULTING PHYSICIAN: Sonny Aranda M.D. REFERRING PHYSICIAN: Guy Lima M.D. REASON FOR CONSULTATION: Bradycardia and junctional rhythm. HISTORY OF PRESENT ILLNESS: The patient is an 81-year-old gentleman with history of hypertension, diabetes, and seizure disorder with advanced dementia, status post tracheostomy and PEG as well as history of paroxysmal atrial fibrillation as well as recurrent infected decubitus ulcer who was [facility] with fever, productive cough, and shortness of breath. While the patient was on telemetry, he had episodes of bradycardia with heart rate dropping to 40s. the patient had temperature of 101 degrees in the emergency room and tachycardic of 130 beats per minute. The patient was on metoprolol 25 mg b.i.d. The patient also had lactic acidosis and received IV antibiotic and IV fluid in the emergency room. PAST MEDICAL HISTORY: 1. Hypertension. 2. Diabetes. 3. Paroxysmal atrial fibrillation. 4. Gastritis. 5. Advanced dementia. 6. Seizure disorder. 7. Respiratory failure, status post tracheostomy. 8. Dysphagia, status post PEG placement. 9. Recurrent sacral decubitus. MEDICATIONS: Per reconciliation. FAMILY HISTORY: Noncontributory. REVIEW OF SYSTEMS: Cannot be obtained as the patient is nonverbal. PHYSICAL EXAMINATION: VITAL SIGNS: Blood pressure of 117/74, pulse is 60, respirations 18, and he is afebrile. HEAD AND NECK: No JVD. Status post tracheostomy. LUNGS: Decreased breath sounds. CARDIOVASCULAR: Regular S1 and S2 with no gallop or murmur. ABDOMEN: Soft, status post G-tube. EXTREMITIES: 1+ pitting edema. LABORATORY AND DIAGNOSTIC DATA: His labs show white count of 5.5, hemoglobin 10.2, hematocrit 31.2, and platelet count of 263,000. Sodium of 138, potassium is 4.0, BUN of 5, and creatinine 0.6. Vancomycin level is 11. Urinalysis showed 4 to 6 WBC and many bacteria. ASSESSMENT AND PLAN: 1. Episodes of junctional rhythm and bradycardia. The heart rate has improved now, even though at times goes to 40s and 50s. I will decrease the metoprolol to 25 mg b.i.d. I will watch the patient on telemetry. I will also get thyroid function test as well as echocardiogram for further evaluation. 2. Hypertension. We will decrease metoprolol to 12.5 mg b.i.d. We will add p.r.n. clonidine. 3. Respiratory failure, status post tracheostomy, but currently off the ventilator. 4. Dysphagia, status post percutaneous endoscopic gastrostomy placement. 5. Aspiration pneumonia, on antibiotics. 6. Advanced dementia. 7. Seizure disorder. 8. Paroxysmal atrial fibrillation. Currently, he has remained in sinus rhythm. We will keep him off anticoagulation. Thank you very much, Dr. Lima for allowing me to participate in the care of this patient. Please do not hesitate to contact me for any questions regarding my evaluation. Sonny Aranda M.D. DR: Markell JOB#: [id number] CC:
[2017-02-08] MEDS: Docusate 100mg/10ml Liq GT SCH (10:55)
[2017-02-08] MEDS: Pantoprazole Inj IV SCH (10:55)
[2017-02-08] MEDS: levETIRAcetam 500mg/5ml Liquid GT SCH (10:56)
[2017-02-08] MEDS: Metoprolol Tartrate 12.5mg TAB GT SCH (10:57)
[2017-02-08] MEDS: Lacosamide 100 MG TABLET ORAL SCH (10:57)
[2017-02-08] MEDS: Heparin 5000 units/ml inj SUBQ SCH (11:03)
[2017-02-08 11:58] VITALS: BP 150/75
--- NOTE | 2017-02-08 12:30 | Infectious Diseases Prog Note ---
Assessment/Plan Assessment/Plan ASSESSMENT AND PLAN: 1. MDR klebsiella/pseudomonas/gram neg uti/pyelonephritis, sepsis, leukocytosis and fevers, ? asp pna/hcap, d/w Dr. Martinez and possible infiltrate on chest x-ray, 02/07 chest x-ray noted - fevers improved, leukocytosis improved - amikacin, flagyl x 5 days - check final cultures and f/u labs, watch temps, check f/u chest x-ray - pulmonary treatment - d/w Dr. Robles 2. The patient has a tracheostomy. No ventilator. 3. Dysphagia, gastrostomy tube. 4. Weakness. 5. Altered mental status. 6. Alzheimer's. 7. Dementia. 8. Hypertension. 9. Diabetes. 10. Blood sugar and blood pressure control per primary. 11. Seizures. 12. Wound care protocol. 13. Quadriplegia. 14. Atrial fibrillation. 15. Hypokalemia history. 16. Urinary tract infection. 17. History of decubitus. 18. Aspiration risk. 19. 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 20. The patient has anemia. 21. Hyponatremia. 22. Allergies are negative. 23. Family history is noncontributory. 24. Social history is negative. 25. MAR was noted. 26. Case was discussed with RN. 27. Case was discussed with Dr. Robles. 28. PATRICIO care. 29. Continue treatment per primary consultants. Subjective Constitutional: Denies: fever HEENT: Reports: congestion Respiratory: Reports: shortness of breath, other - respiratory status stable Cardiovascular: Denies: chest pain Gastrointestinal/Abdominal: Denies: nausea, vomiting, diarrhea Genitourinary: Reports: other - + olvera - urine slt cloudy Neurologic: Reports: other - + generalized weakness Psychiatric: Reports: no symptoms Skin: Denies: rash Hematologic: Denies: bleeding Musculoskeletal: Denies: pain Allergies: Coded Allergies: No Known Allergies (Unverified , 01/02/17) Objective Vital Signs Last 24 Hour Vital Signs Date Time Temp Pulse Resp B/P (MAP) Pulse Ox O2 Delivery O2 Flow Rate FiO2 02/08/17 11:58 98.1 73 20 150/75 100 T-piece 28 02/08/17 10:57 62 138/68 02/08/17 08:35 100 T-piece 6.0 28 02/08/17 08:35 T-piece 6.0 28 02/08/17 08:35 100 T-piece 6.0 28 02/08/17 08:00 10.0 28 02/08/17 08:00 62 02/08/17 08:00 98.2 67 19 138/68 100 T-piece 28 02/08/17 04:00 10.0 28 02/08/17 04:00 98.1 71 20 133/69 99 T-piece 02/08/17 04:00 71 02/08/17 01:30 100 T-piece 6.0 28 02/08/17 01:30 T-piece 6.0 28 02/08/17 00:18 10.0 28 02/08/17 00:00 98.3 64 18 133/70 100 T-piece 28 02/08/17 00:00 64 02/07/17 21:01 64 136/76 02/07/17 20:03 T-piece 6.0 28 02/07/17 20:03 100 T-piece 6.0 28 02/07/17 20:00 97.7 64 18 136/76 100 T-piece 28 02/07/17 20:00 10.0 28 02/07/17 20:00 64 02/07/17 16:00 97.7 62 19 127/59 100 T-piece 28 02/07/17 16:00 10.0 28 02/07/17 15:41 1 02/07/17 12:45 T-piece 6.0 28 02/07/17 12:45 99 T-piece 6.0 28 Height (Feet): 6 Height (Inches): 1.00 Weight (Pounds): 170 General Appearance: no acute distress HEENT: normocephalic, atraumatic, anicteric, mucous membranes moist, EOMI, supple, no JVD, status post trach Respiratory/Chest: no accessory muscle use, decreased breath sounds, crackles/ rales, rhonchi - bilaterally Cardiovascular: normal rate, regular rhythm, no gallop/murmur, no JVD Abdomen: soft, non tender, no organomegaly, non distended Genitourinary: other - + foely - urine slt cloudy Extremities: no cyanosis Skin: no rash 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 Lungs and pleural spaces are otherwise clear. Tracheostomy remains. The right hemidiaphragm is somewhat elevated, less so than on the previous study. Impression: Bilateral basilar atelectasis. No acute process otherwise Chest x-ray: Findings: There is mild basilar atelectasis. Right hemidiaphragm is elevated. Tracheostomy noted. Heart size is stable. The Impression: No significant change Chest x-ray - 02/07: Right basilar pulmonary infiltrate is present. Heart size is borderline and stable. Tracheostomy again noted. Impression: Suspected pneumonia involving the right lung base Microbiology Date/Time Source Procedure Growth Status 02/02/17 02:30 Blood Blood Culture - Final NO GROWTH AFTER 5 DAYS Complete 02/06/17 09:15 Sputum Gram Stain - Final Resulted 02/06/17 09:15 Sputum Sputum Culture - Preliminary Resulted 02/02/17 01:13 Urine,Clean Catch Urine Culture - Final K.pneumoniae Carbapenem Resist Pseudomonas Aeruginosa Proteus Mirabilis Esbl Complete 02/02/17 01:55 Rectum VRE Culture - Final Enterococcus Faecium - Vre Complete Microbiology Date/Time Source Procedure Growth Status 02/06/17 09:15 Sputum Gram Stain - Final Resulted 02/06/17 09:15 Sputum Sputum Culture - Preliminary Resulted Labs Test 02/06/17 03:05 02/07/17 03:30 02/08/17 03:00 White Blood Count 7.0 K/UL (4.8-10.8) 5.5 K/UL (4.8-10.8) Red Blood Count 3.73 M/UL (4.70-6.10) 3.49 M/UL (4.70-6.10) Hemoglobin 10.7 G/DL (14.2-18.0) 10.2 G/DL (14.2-18.0) Hematocrit 33.5 % (42.0-52.0) 31.2 % (42.0-52.0) Mean Corpuscular Volume 90 FL (80-99) 89 FL (80-99) Mean Corpuscular Hemoglobin 28.8 PG (27.0-31.0) 29.2 PG (27.0-31.0) Mean Corpuscular Hemoglobin Concent 32.1 G/DL (32.0-36.0) 32.7 G/DL (32.0-36.0) Red Cell Distribution Width 15.9 % (11.6-14.8) 15.9 % (11.6-14.8) Platelet Count 244 K/UL (150-450) 263 K/UL (150-450) Mean Platelet Volume 7.4 FL (6.5-10.1) 7.4 FL (6.5-10.1) Neutrophils (%) (Auto) 61.2 % (45.0-75.0) 50.8 % (45.0-75.0) Lymphocytes (%) (Auto) 22.8 % (20.0-45.0) 32.1 % (20.0-45.0) Monocytes (%) (Auto) 12.4 % (1.0-10.0) 12.8 % (1.0-10.0) Eosinophils (%) (Auto) 3.1 % (0.0-3.0) 3.5 % (0.0-3.0) Basophils (%) (Auto) 0.5 % (0.0-2.0) 0.8 % (0.0-2.0) Sodium Level 142 MMOL/L (136-145) 138 MMOL/L (136-145) Potassium Level 4.0 MMOL/L (3.5-5.1) 4.0 MMOL/L (3.5-5.1) Chloride Level 105 MMOL/L (98-107) 102 MMOL/L (98-107) Carbon Dioxide Level 31 MMOL/L (21-32) 31 MMOL/L (21-32) Anion Gap 7 mmol/L (5-15) 5 mmol/L (5-15) Blood Urea Nitrogen 7 mg/dL (7-18) 5 mg/dL (7-18) Creatinine 0.7 MG/DL (0.55-1.30) 0.6 MG/DL (0.55-1.30) Estimat Glomerular Filtration Rate mL/min (>60) mL/min (>60) Glucose Level 106 MG/DL (74-106) 152 MG/DL (74-106) Calcium Level 9.3 MG/DL (8.5-10.1) 8.9 MG/DL (8.5-10.1) Phosphorus Level 2.7 MG/DL (2.5-4.9) Magnesium Level 2.0 MG/DL (1.8-2.4) Total Bilirubin 0.2 MG/DL (0.2-1.0) Aspartate Amino Transf (AST/SGOT) 15 U/L (15-37) Alanine Aminotransferase (ALT/SGPT) 9 U/L (12-78) Alkaline Phosphatase 116 U/L (46-116) Total Protein 7.7 G/DL (6.4-8.2) Albumin 2.1 G/DL (3.4-5.0) Globulin 5.6 g/dL Albumin/Globulin Ratio 0.4 (1.0-2.7) Troponin I 0.000 ng/mL (0.000-0.056) Pro-B-Type Natriuretic Peptide 864 pg/mL (0-125) Thyroid Stimulating Hormone (TSH) 1.391 uiU/mL (0.360-3.740) Free Thyroxine 1.80 NG/DL (0.10-1.46) Laboratory Tests Test 02/08/17 03:00 Troponin I 0.000 ng/mL (0.000-0.056) Pro-B-Type Natriuretic Peptide 864 pg/mL (0-125) H Thyroid Stimulating Hormone (TSH) 1.391 uiU/mL (0.360-3.740) Free Thyroxine 1.80 NG/DL (0.10-1.46) H Current Medications Medications (Trade) Dose Ordered Sig/Dorie Route PRN Reason Start Time Stop Time Status Last Admin Dose Admin Acetaminophen (Tylenol) 650 mg Q4H PRN ORAL T>100.5 02/02/17 12:15 03/04/17 12:14 02/03/17 14:06 Amikacin Protocol (Amikacin pharmacy to dose) 1 ea DAILY PRN MISC Per rx protocol 02/04/17 12:30 03/06/17 12:29 Amikacin Sulfate 1200 mg/Dextrose 279.8 ml @ 559.6 mls/ hr Q36H IV 02/07/17 02:00 02/14/17 01:59 02/07/17 01:42 Dextrose (Dextrose 50%) STAT PRN IV Hypoglycemia 02/02/17 12:15 03/04/17 12:14 Docusate Sodium (Colace) 100 mg TWICE A DAY GT 02/05/17 19:30 03/07/17 19:29 02/08/17 10:55 Heparin Sodium (Porcine) (Heparin 5000 units/ml) 5,000 units EVERY 12 HOURS SUBQ 02/02/17 21:00 03/04/17 20:59 02/08/17 11:03 Insulin Aspart (NovoLOG) EVERY 6 HOURS SUBQ 02/06/17 12:00 03/04/17 16:29 02/08/17 05:57 Lacosamide (Vimpat) 100 mg EVERY 12 HOURS ORAL 02/03/17 09:00 03/05/17 08:59 02/08/17 10:57 Lactulose (Cephulac) 20 gm Q8H PRN ORAL CONSTIPATION 02/05/17 18:45 03/07/17 18:44 02/05/17 19:11 Levetiracetam (Keppra) 1,500 mg BID GT 02/03/17 09:00 03/05/17 08:59 02/08/17 10:56 Lorazepam (Ativan 2mg/ml 1ml) 2 mg Q2H PRN IV For Anxiety 02/02/17 12:15 02/09/17 12:14 Metoprolol Tartrate (Lopressor) 12.5 mg Q12HR GT 02/07/17 21:00 03/09/17 20:59 02/08/17 10:57 Metronidazole (Flagyl) 500 mg EVERY 8 HOURS ORAL 02/06/17 14:00 02/13/17 13:59 02/08/17 05:55 Morphine Sulfate (Morphine Sulfate) 4 mg Q4H PRN IVP Severe Pain (Pain Scale 7-10) 02/02/17 12:15 02/09/17 12:14 Ondansetron HCl (Zofran) 4 mg Q6H PRN IVP Nausea & Vomiting 02/02/17 12:15 03/04/17 12:14 Pantoprazole (Protonix) 40 mg DAILY IV 02/03/17 09:00 03/05/17 08:59 02/08/17 10:55 Polyethylene Glycol (Miralax) 17 gm DAILYPRN PRN ORAL Constipation 02/02/17 12:15 03/04/17 12:14 02/04/17 12:45 Valproic Acid (Depakene) 500 mg Q8HR NG 02/03/17 06:00 03/05/17 05:59 02/08/17 05:55 JENNIFER BEVERLY Feb 08, 2017 12:30
[2017-02-08] MEDS: D5W IV SCH (14:11)
[2017-02-08] MEDS: AMIKACIN IV SCH (14:11)
[2017-02-08] MEDS ORDERED: NS 275ml ONE (16:12)
--- NOTE | 2017-02-08 16:45 | Discharge Summary ---
Discharge Summary Hospital Course Date of Admission Feb 02, 2017 at 02:59 Date of Discharge Feb 08, 2017 at 16:13 Admitting Diagnosis SEPSIS Reason for Hospitalization: sepsis, aspiration pneumonia, UTI HPI 81 year old male with pmh of HTN, DM2, pAfib, gastritis, seizure disorder, advanced dementia, s/p trach and PEG, recurrently infected sacral decubitus ulcers who presents from SNF with fever. Pt noted to have fever as well as productive cough as well as SOB. No reports of chest pain, abd pain, n/v, d/c. Pt is nonverbal and bed-bound at baseline. In ED, pt w/ fever to 100.9, tachycardic to 130s. U/A positive. CXR w/ questionable infiltrate. Pt also w/ lactic acidosis. He was given IVFs and zosyn in ED. Consultations Pulmonology, Infectious disease, Cardiology Hospital Course Pt was admitted and continued on IV vanco and zosyn for broad coverage of severe sepsis with lactic acidosis. Urine culture ultimately showed multi-drug resistant klebsiella pneumoniae and pseudomonas. Blood cultures were negative. Pt was switched to amikacin and flagyl per ID. Pt's hospital course complicated by junctional arrhythmia and metoprolol dose was decreased per cardiology. Once pt stabilized, he was discharged to SNF to complete abt 4 more days of antibiotics per ID. Discharge physical exam General: non-verbal, bed bound, occasionally opens eyes but not to command Head: normocephalic, without obvious abnormality, atraumatic Eyes: conjunctivae/corneas clear. PERRL Throat: lips, mucosa, and tongue normal. MMM Neck: supple, symmetrical, trachea midline, and no JVD, +tracheostomy c/d/i Lungs: +rhonchi b/l Heart: regular rate and rhythm, S1, S2 normal, no murmur, click, rub or gallop Abdomen: soft, non-tender, non-distended, bowel sounds normal; no masses or organomegaly Extremities: extremities normal, atraumatic, no cyanosis or edema Pulses: 2+ and symmetric Skin: skin color, texture, turgor normal; no rashes or lesions Neurologic: unable to assess as pt does not follow commands Discharge diagnoses (1) Severe sepsis ICD Codes: A41.9 - Sepsis, unspecified organism; R65.20 - Severe sepsis without septic shock SNOMED: 03485054 (2) UTI secondary to multidrug resistant Klebsiella pneumonia and pseudmonas (3) Aspiration pneumonia ICD Codes: J69.0 - Pneumonitis due to inhalation of food and vomit SNOMED: 447525124 (4) Lactic acidemia ICD Codes: E87.2 - Acidosis SNOMED: 725288915 (5) Hyponatremia ICD Codes: E87.1 - Hypo-osmolality and hyponatremia SNOMED: 47725417 (6) Tracheostomy in place ICD Codes: Z93.0 - Tracheostomy status SNOMED: 743216071 (7) Diabetes mellitus ICD Codes: E11.9 - Type 2 diabetes mellitus without complications SNOMED: 63744705 (8) Seizure disorder ICD Codes: G40.909 - Epilepsy, unspecified, not intractable, without status epilepticus SNOMED: 507861532 (9) HTN (hypertension) ICD Codes: I10 - Essential (primary) hypertension SNOMED: 60491545 (10) Advanced dementia ICD Codes: F03.90 - Unspecified dementia without behavioral disturbance SNOMED: 58874064 (11) S/P percutaneous endoscopic gastrostomy (PEG) tube placement ICD Codes: Z93.1 - Gastrostomy status SNOMED: 899022042 (12) Functional quadriplegia ICD Codes: R53.2 - Functional quadriplegia SNOMED: 123864074085199 (13) Decubitus ulcer of sacral region, stage 4 ICD Codes: L89.154 - Pressure ulcer of sacral region, stage 4 SNOMED: 509527201, 890481744 (14) Decubitus ulcer, heel, right, unstageable ICD Codes: L89.610 - Pressure ulcer of right heel, unstageable SNOMED: 787092786 (15) Junctional cardiac arrhythmia ICD Codes: I49.8 - Other specified cardiac arrhythmias SNOMED: 147851039 (16) Functional paraplegia (17) Paroxysmal a-fib ICD Codes: I48.0 - Paroxysmal atrial fibrillation SNOMED: 818831344 Discharge Medications New Medications: Metoprolol Tartrate (Metoprolol Tartrate) 25 Mg Tablet 12.5 MG GT Q12HR, #60 TAB Metronidazole* (Flagyl*) 500 Mg Tablet 500 MG ORAL EVERY 8 HOURS for 4 Days, TAB [Amikacin Rx to dose] () 1 EA MISC 1 EA MISC DAILY for 4 Days Continued Medications: Acetaminophen* (Acetaminophen*) 160 Mg/5 Ml Liquid 320 MG GT Q6H PRN for Mild Pain/Temp > 100.5, ML Ascorbic Acid* (Vitamin C*) 250 Mg Tablet Unknown Dose GT DAILY, #30 TAB 0 Refills Chlorhexidine Gluconate* (Hibiclens*) 118 Ml Liquid 5 OZ ORAL EVERY 12 HOURS, ML Divalproex Sodium* (Depakote*) 250 Mg Tablet.dr 250 MG PO Q12HR, TAB Docusate Sodium (Docusate Sodium) 50 Mg/5 Ml Liquid 100 MG GT TWICE A DAY, EA Docusate Sodium* (Colace*) 100 Mg Capsule 100 MG ORAL TWICE A DAY, CAP Famotidine (Famotidine) 20 Mg Tablet 20 MG GT TWICE A DAY, #60 TAB 0 Refills Ferrous Sulfate (Ferrous Sulfate) 220 Mg/5 Ml Elixir 7.5 MG GT DAILY, ML Heparin Sod (Porcine) (Heparin Sodium*) 5 000/1 Ml Vial 5000 UNITS SUBQ EVERY 12 HOURS, VIAL Hydrocodone Bit/Acetaminophen 5-325* (Bicknell 5-325 Tablet*) 1 Each Tablet 1 TAB ORAL Q6HR PRN for For Pain, TAB Insulin Aspart* (Novolog*) 100 Unit/1 Ml Insuln.pen 0 SUBQ BEFORE MEALS AND HS, #1 EA 0 Refills Insulin Aspart* (Novolog*) 100 Unit/1 Ml Insuln.pen 0 SUBQ, #1 EA 0 Refills Insulin Detemir (Levemir Flextouch) 100 Unit/1 Ml Insuln.pen 42 UNIT SQ BID, EA Ipratropium/Albuterol Sulfate (Combivent Respimat Inhal Rector) 4 Gm Mist.inhal 3 ML IH EVERY 6 HOURS PRN for Shortness of Breath, GM Ipratropium/Albuterol Sulfate (DuoNeb 0.5-3(2.5)mg/3ml) 3 Ml Ampul.neb 3 ML HHN, EA Lacosamide (Vimpat) 100 Mg Tablet 100 MG GT EVERY 12 HOURS, TAB Levetiracetam (Keppra) 500 Mg Tablet 500 MG ORAL EVERY 12 HOURS, #60 TAB 0 Refills Levetiracetam* (Levetiracetam*) 100 Mg/1 Ml Solution 1500 MG GT BID Ondansetron* (Zofran*) 4 Mg Tablet 4 MG ORAL Q4HR PRN for Nausea & Vomiting, TAB Pantoprazole* (Protonix*) 40 Mg Tablet.dr 40 MG ORAL DAILY, TAB Polyethylene Glycol 3350* (Polyethylene Glycol 3350*) 17 Gm Powd.pack 17 GM GT DAILY PRN for Constipation, PACKET Polyethylene Glycol 3350* (Miralax*) 17 Gm Powd.pack 17 GM ORAL DAILY, PACKET Valproate Sodium (Depakene) 250 Mg/5 Ml Solution 500 MG GT EVERY 8 HOURS Zinc Sulfate (Zinc Sulfate*) 220 Mg Capsule 220 MG GT DAILY, CAP 0 Refills Discontinued Medications: Ceftriaxone Na/Dextrose,Iso (Ceftriaxone 1 Gm Piggyback) 1 Gm/50 Ml Froz.piggy 1 GM IV Q24H for 7 Days, BAG Epoetin Dereje (Epogen) 10,000 Unit/1 Ml Vial 94845 UNIT SUBQ 3XW, VIAL Metoprolol Tartrate* (Metoprolol Tartrate*) 25 Mg Tablet 25 MG ORAL TWICE A DAY for 30 Days, #60 TAB Discharge Condition Upon Discharge: stable Discharge Disposition Patient was discharged to Discharge Diagnoses: Travis Hinojosa M.D. Feb 08, 2017 16:45
== END 2017-02-08 16:13 | DRG 871 ==
LOC: EDBD 01:45 → EMR 01:59 → 2W 02:59 → EDBEDREQ 04:17
PROC: 5A1935Z Respiratory Ventilation, Less than 24 Consecutive Hours (ICD-10-PCS; principal; 2017-02-02)
DX: A41.9 Sepsis, unspecified organism (principal); J69.0 Pneumonitis due to inhalation of food and vomit; L89.154 Pressure ulcer of sacral region, stage 4; R53.2 Functional quadriplegia; Z43.0 Encounter for attention to tracheostomy; N39.0 Urinary tract infection, site not specified; E87.1 Hypo-osmolality and hyponatremia; Z43.1 Encounter for attention to gastrostomy; I48.1 Persistent atrial fibrillation; R65.20 Severe sepsis without septic shock; B96.1 Klebsiella pneumoniae [K. pneumoniae] as the cause of diseases classified elsewhere; Z16.24 Resistance to multiple antibiotics; B96.5 Pseudomonas (aeruginosa) (mallei) (pseudomallei) as the cause of diseases classified elsewhere; G40.909 Epilepsy, unspecified, not intractable, without status epilepticus; L89.610 Pressure ulcer of right heel, unstageable; G30.9 Alzheimer's disease, unspecified; F02.80 Dementia in other diseases classified elsewhere, unspecified severity, without behavioral disturbance, psychotic disturbance, mood disturbance, and anxiety; Z79.4 Long term (current) use of insulin; R13.10 Dysphagia, unspecified; D64.9 Anemia, unspecified; I49.8 Other specified cardiac arrhythmias
CPT/HCPCS: 36415; 71010; 80048; 80053; 80076; 80150; 80164; 80299; 81003; 82550; 82553; 82962; 83605; 83690; 83735; 83880; 84100; 84439; 84443; 84484; 85025; 85651; 86140; 87040; 87070; 87081; 87086; 87181; 87205; 93005; 93306; 93970; 94664; 94760; 99285; J1815

== ENCOUNTER 2017-03-04 11:52 | Inpatient (IN) | payer MEDICARE ==
[~2017-03-04] VITALS: Ht 182.9 cm; Wt 81.6 kg
[~2017-03-04 11:52] MED LIST changes: +Amikacin Rx to dose MISC; +COLACE100 MG ORAL; +DEPAKOTE250 MG PO; +DUONEB 0.5-3(2.53 ML HHN; +FLAGYL500 MG ORAL; +KEPPRA500 M4 ORAL; +LOPRESSOR25 M1 GT; +MIRALAX17 G2 ORAL; +PROTONIX40 MG ORAL; +ZOFRAN4 M3 ORAL
--- NOTE | 2017-03-04 12:23 | Emergency Room Report ---
History of Present Illness General Chief Complaint: General Complaint Source: Medical Record, EMS Present Illness HPI The patient was sent in for rapid heart rate. They documented heart rate 118 at the custodial facility. The patient is supposed to be on metoprolol. When paramedics got there his heart rate was 67. He has a history of paroxysmal atrial fibrillation. He is unable to give any history and has no complaints. He suffers from dementia and has a tracheostomy G-tube and Olvera. He was discharged on 02/08/17 with these diagnoses: (1) Severe sepsis (2) UTI secondary to multidrug resistant Klebsiella pneumonia and pseudmonas (3) Aspiration pneumonia (4) Lactic acidemia (5) Hyponatremia (6) Tracheostomy in place (7) Diabetes mellitus Type 2 diabetes mellitus without complications (8) Seizure disorder (9) HTN (hypertension) (10) Advanced dementia (11) S/P percutaneous endoscopic gastrostomy (PEG) tube placement (12) Functional quadriplegia (13) Decubitus ulcer of sacral region, stage 4 (14) Decubitus ulcer, heel, right, unstageable (15) Junctional cardiac arrhythmia (16) Functional paraplegia (17) Paroxysmal a-fib Allergies: Coded Allergies: No Known Allergies (Unverified , 01/02/17) Patient History Limited by: medical condition Past Medical History: see triage record, old chart reviewed Past Surgical History: other - trach, G tube, olvera Social History Narrative SNF Reviewed Nursing Documentation: PMH: Agreed, PSxH: Agreed Nursing Documentation-PMH Hx Hypertension: Yes Hx Diabetes: Yes Hx Gastrointestinal Problems: Yes - G-tube Hx Cerebrovascular Accident: Yes Hx Seizures: Yes Review of Systems All Other Systems: limited Physical Exam Vital Signs Date Time Temp Pulse Resp B/P (MAP) Pulse Ox O2 Delivery O2 Flow Rate FiO2 03/04/17 11:54 98.4 67 16 109/68 100 Trach Collar 5.0 Sp02 EP Interpretation: reviewed, normal General Appearance: other - vegetative state, Chronically Ill Head: normocephalic Eyes: bilateral eye normal inspection ENT: dry mucus membranes Neck: supple, other - trach Respiratory: lungs clear, normal breath sounds Cardiovascular #1: regular rate, rhythm Cardiovascular #2: 2+ radial (R) Gastrointestinal: normal inspection, non tender, no mass, non-distended, decreased bowel sounds Rectal: heme negative stool Musculoskeletal: back normal, other - contractures Neurologic: other - flaccid with contractures, unresponsive to pain Psychiatric: other - vegetative state Reflexes: 1+ knee (R), 1+ knee (L) Skin: warm/dry, other - decubiti - R heel = stage 4, MTP = stage 3, L heel stage 2-3, sacrum = Stage 4 Medical Decision Making Diagnostic Impression: Primary Impression: UTI (urinary tract infection) Qualified Codes: T83.511A - Infection and inflammatory reaction due to indwelling urethral catheter, initial encounter; N39.0 - Urinary tract infection , site not specified Additional Impressions: Anemia Qualified Codes: D64.9 - Anemia, unspecified Right lower lobe infiltrate Advanced dementia Sacral decubitus ulcer Qualified Codes: L89.154 - Pressure ulcer of sacral region, stage 4 Diabetes mellitus Qualified Codes: E11.8 - Type 2 diabetes mellitus with unspecified complications S/P percutaneous endoscopic gastrostomy (PEG) tube placement Tracheostomy in place Decubitus ulcer of right heel, stage 4 Functional quadriplegia ER Course Patient presents with alleged tachycardia now resolved. DDx: arrhythmia, AMI, electrolyte abnormality, sepsis, PE amongst others. Complex patient as in vegetative state and cannot give hx or physical response. Indwelling olvera possible source. Full evaluation with EKG, CXR, labs. Treatment with gentle hydration. Labs significant for pyuria. Xray read with possible infiltrate. Labs with normal WBC. H/H lower (rectal heme neg). Elevated glucose, normal renal function and troponin. Discussed with Dr. Robles. She wants the patient admitted to Telemetry. She consulted with Dr. Martinez (who also covers SNF). Prior urine with resistant organisms. Amikacin, cefepime and levaquin begun. Prior microbes both sensitive to Amikacin. This is ordered. Admit telemetry (possible arrhythmia). Laboratory Tests Test 03/04/17 12:30 03/04/17 12:40 Urine Color Yellow Urine Appearance Clear Urine pH 7 (4.5-8.0) Urine Specific Graham 1.005 (1.005-1.035) Urine Protein 1+ (NEGATIVE) H Urine Glucose (UA) Negative (NEGATIVE) Urine Ketones Negative (NEGATIVE) Urine Occult Blood 1+ (NEGATIVE) H Urine Nitrite Positive (NEGATIVE) H Urine Bilirubin Negative (NEGATIVE) Urine Urobilinogen Normal MG/DL (0.0-1.0) Urine Leukocyte Esterase 3+ (NEGATIVE) H Urine RBC 2-4 /HPF (0 - 0) H Urine WBC 15-20 /HPF (0 - 0) H Urine Squamous Epithelial Cells Occasional /LPF Urine Bacteria Many /HPF (NONE) H White Blood Count 9.0 K/UL (4.8-10.8) Red Blood Count 3.02 M/UL (4.70-6.10) L Hemoglobin 8.9 G/DL (14.2-18.0) L Hematocrit 27.5 % (42.0-52.0) L Mean Corpuscular Volume 91 FL (80-99) Mean Corpuscular Hemoglobin 29.3 PG (27.0-31.0) Mean Corpuscular Hemoglobin Concent 32.3 G/DL (32.0-36.0) Red Cell Distribution Width 15.8 % (11.6-14.8) H Platelet Count 206 K/UL (150-450) Mean Platelet Volume 7.4 FL (6.5-10.1) Neutrophils (%) (Auto) 72.6 % (45.0-75.0) Lymphocytes (%) (Auto) 13.8 % (20.0-45.0) L Monocytes (%) (Auto) 9.4 % (1.0-10.0) Eosinophils (%) (Auto) 3.7 % (0.0-3.0) H Basophils (%) (Auto) 0.6 % (0.0-2.0) Prothrombin Time 9.9 SEC (9.30-11.50) Prothrombin Time INR 0.9 (0.9-1.1) PTT 30 SEC (23-33) Sodium Level 137 MMOL/L (136-145) Potassium Level 4.4 MMOL/L (3.5-5.1) Chloride Level 100 MMOL/L (98-107) Carbon Dioxide Level 35 MMOL/L (21-32) H Anion Gap 2 mmol/L (5-15) L Blood Urea Nitrogen 17 mg/dL (7-18) Creatinine 0.7 MG/DL (0.55-1.30) Estimate Glomerular Filtration Rate mL/min (>60) Glucose Level 208 MG/DL (74-106) H Calcium Level 9.1 MG/DL (8.5-10.1) Total Bilirubin 0.2 MG/DL (0.2-1.0) Aspartate Amino Transferase (AST) 13 U/L (15-37) L Alanine Aminotransferase (ALT) 11 U/L (12-78) L Alkaline Phosphatase 119 U/L (46-116) H Total Creatine Kinase 46 U/L (26-308) Troponin I < 0.017 ng/mL (0.000-0.056) Pro-B-Type Natriuretic Peptide 476 pg/mL (0-125) H Total Protein 7.6 G/DL (6.4-8.2) Albumin 2.1 G/DL (3.4-5.0) L Globulin 5.5 g/dL Albumin/Globulin Ratio 0.4 (1.0-2.7) L EKG Diagnostic Results Rate: normal Rhythm: NSR ST Segments: no acute changes Rhythm Strip Diag. Results EP Interpretation: yes Rhythm: NSR, no PVC's, no ectopy Chest X-Ray Diagnostic Results Chest X-Ray Diagnostic Results : Chest X-Ray Ordered: Yes # of Views/Limited/Complete: 1 View Indication: Other Interpretation: no consolidation, no effusion, no pneumothorax Impression: Other Electronically Signed by: Electronically signed by Vic Borden MD Status: improved Disposition: ADMITTED INPATIENT Condition: Serious Vic Borden M.D. Mar 04, 2017 12:23
[2017-03-04 12:30] VITALS: BP 113/46
[2017-03-04 12:56] LABS: BASOPHILS % (AUTO) 0.6 % (0.0-2.0); EOSINOPHILS % (AUTO) 3.7 % (0.0-3.0); LYMPHOCYTES % (AUTO) 13.8 % (20.0-45.0); MEAN CORPUSCULAR HEMOGLOBIN 29.3 PG (27.0-31.0); MEAN CORPUSCULAR HGB CONC 32.3 G/DL (32.0-36.0); MEAN CORPUSCULAR VOLUME 91 FL (80-99); MEAN PLATELET VOLUME 7.4 FL (6.5-10.1); MONOCYTES % (AUTO) 9.4 % (1.0-10.0); NEUTROPHILS % (AUTO) 72.6 % (45.0-75.0); PLATELET COUNT 206 K/UL (150-450); RED BLOOD COUNT 3.02 M/UL (4.70-6.10); RED CELL DISTRIBUTION WIDTH 15.8 % (11.6-14.8)
[2017-03-04 12:56] LABS: APPEARANCE,URINE CLEAR; KETONES,URINE NEGATIVE (NEGATIVE); LEUKOCYTE ESTERASE ,URINE 3+ (NEGATIVE); NITRITE,URINE POSITIVE (NEGATIVE); PH,URINE 7 (4.5-8.0); PROTEIN,URINE 1+ (NEGATIVE); UROBILINOGEN,URINE NORMAL MG/DL (0.0-1.0)
[2017-03-04 13:12] LABS: INR 0.9 (0.9-1.1); PROTHROMBIN TIME 9.9 SEC (9.30-11.50)
[2017-03-04 13:13] LABS: ANION GAP 2 mmol/L (5-15); CALCIUM 9.1 MG/DL (8.5-10.1); CARBON DIOXIDE 35 MMOL/L (21-32); CHLORIDE 100 MMOL/L (98-107); CREATININE 0.7 MG/DL (0.55-1.30); POTASSIUM 4.4 MMOL/L (3.5-5.1); SODIUM 137 MMOL/L (136-145)
[2017-03-04 13:16] LABS: BACTERIA,URINE MANY /HPF; SQUAMOUS EPITHELIAL CELL,UR OCCASIONAL /LPF (NONE/OCC); WBC,URINE 15-20 /HPF (0 - 0)
[2017-03-04 13:25] LABS: ALANINE AMINOTRANSFERASE 11 U/L (12-78); ALBUMIN/GLOBULIN RATIO 0.4 (1.0-2.7); ASPARTATE AMINO TRANSFERASE 13 U/L (15-37); TOTAL PROTEIN 7.6 G/DL (6.4-8.2)
[2017-03-04] MEDS ORDERED: PRO-STAT LIQUID30 ML GT (13:26)
[2017-03-04] MEDS ORDERED: VITAMIN C250 MG GT (13:26)
[2017-03-04] MEDS ORDERED: ZOFRAN4 M3 GT (13:26)
[2017-03-04 14:26] VITALS: BP 107/41
[2017-03-04] MEDS ORDERED: Amikacin 1,000 MG in NS 275 ML IV STA (15:25)
--- NOTE | 2017-03-04 15:26 | Diagnostic Imaging Report ---
Indication: CP shortness of breath Technique: One view of the chest Comparison: And 06/07/16 Findings: Slightly better inspiration currently. There is persistent atelectasis and possibly some consolidation at the right lung base which is decreased from the prior exam. There is retrocardiac consolidation with air bronchograms which appears increased from the prior exam. There is suggestion of a small left pleural effusion now present. Tracheostomy remains. Impression: New finding of left-sided pleural effusion Retrocardiac atelectasis and consolidation, new since previous study of 02/07/2017 Right basilar atelectasis, improved since 07/04/17
[2017-03-04] MEDS ORDERED: LORazepam Inj 2mg/ml 1ml IV PRN (15:30)
[2017-03-04] MEDS ORDERED: Morphine Sulfate 4mg/ml Inj IVP PRN (15:30)
[2017-03-04] MEDS ORDERED: Miralax 17gm pkt ORAL PRN (15:30)
[2017-03-04] MEDS ORDERED: Amikacin 500mg/2mL Inj ONE ×2 (15:45→15:46)
[2017-03-04] MEDS ORDERED: Cefepime HCl 1 GM in D5W 55 ML IVPB ONE (15:45)
[2017-03-04] MEDS ORDERED: Cefepime 1gm vial ONE (16:02)
[2017-03-04 17:50] VITALS: BP 131/66
[2017-03-04] MEDS ORDERED: Vancomycin 1.5 GM/D5W 250ML IVPB ONE (18:00)
--- NOTE | 2017-03-04 19:03 | History and Physical ---
History of Present Illness General Date patient seen: Mar 04, 2017 Time patient seen: 18:00 Reason for Hospitalization: tachycardia, lethargy Present Illness HPI 81 year old male with pmh of HTN, DM2, pAfib, gastritis, seizure disorder, advanced dementia, s/p trach and PEG, recurrently infected sacral decubitus ulcers, bed bound and nonverbal at baseline who presents from SNF with tachycardia and lethargy. Pt recently admitted and discharged 02/08/17 for severe sepsis 2/2 aspiration PNA and UTI w/ MDR Klebsiella and pseudomonas. Pt found ot have HR up to 118 at SNF. He was also more lethargic than baseline. In ED, VSS. Pt found to have UTI. Allergies: Coded Allergies: No Known Allergies (Unverified , 01/02/17) Medication History Scheduled Amino Acids/Protein Hydrolys (Pro-Stat Liquid), 30 ML GT DAILY, (Reported) Ascorbic Acid* (Vitamin C*), Unknown Dose GT DAILY, (Reported) Ascorbic Acid* (Vitamin C*), 250 MG GT DAILY, (Reported) Chlorhexidine Gluconate* (Hibiclens*), 5 OZ ORAL EVERY 12 HOURS, (Reported) Divalproex Sodium* (Depakote*), 250 MG PO Q12HR, (Reported) Docusate Sodium (Docusate Sodium), 100 MG GT TWICE A DAY, (Reported) Docusate Sodium* (Colace*), 100 MG ORAL TWICE A DAY, (Reported) Famotidine (Famotidine), 20 MG GT TWICE A DAY, (Reported) Ferrous Sulfate (Ferrous Sulfate), 7.5 MG GT DAILY, (Reported) Heparin Sod (Porcine) (Heparin Sodium*), 5,000 UNITS SUBQ EVERY 12 HOURS, ( Reported) Insulin Aspart* (Novolog*), 0 SUBQ BEFORE MEALS AND HS, (Reported) Insulin Detemir (Levemir Flextouch), 42 UNIT SQ BID, (Reported) Lacosamide (Vimpat), 100 MG GT EVERY 12 HOURS, (Reported) Levetiracetam (Keppra), 500 MG ORAL EVERY 12 HOURS, (Reported) Levetiracetam* (Levetiracetam*), 1,500 MG GT BID, (Reported) Metoprolol Tartrate (Metoprolol Tartrate), 12.5 MG GT Q12HR Metronidazole* (Flagyl*), 500 MG ORAL EVERY 8 HOURS Pantoprazole* (Protonix*), 40 MG ORAL DAILY, (Reported) Polyethylene Glycol 3350* (Miralax*), 17 GM ORAL DAILY, (Reported) Valproate Sodium (Depakene), 500 MG GT EVERY 8 HOURS, (Reported) Zinc Sulfate (Zinc Sulfate*), 220 MG GT DAILY, (Reported) [Amikacin Rx to dose], 1 EA MISC DAILY Scheduled PRN Acetaminophen* (Acetaminophen*), 320 MG GT Q6H PRN for Mild Pain/Temp > 100.5, ( Reported) Hydrocodone Bit/Acetaminophen 5-325* (Roberts 5-325 Tablet*), 1 TAB ORAL Q6HR PRN for For Pain, (Reported) Ipratropium/Albuterol Sulfate (Combivent Respimat Inhal [place]), 3 ML IH EVERY 6 HOURS PRN for Shortness of Breath, (Reported) Ondansetron* (Zofran*), 4 MG ORAL Q4HR PRN for Nausea & Vomiting, (Reported) Ondansetron* (Zofran*), 4 MG GT Q4HR PRN for Nausea & Vomiting, (Reported) Polyethylene Glycol 3350* (Polyethylene Glycol 3350*), 17 GM GT DAILY PRN for Constipation, (Reported) Miscellaneous Medications Insulin Aspart* (Novolog*), 0 SUBQ, (Reported) Ipratropium/Albuterol Sulfate (DuoNeb 0.5-3(2.5)mg/3ml), 3 ML HHN, (Reported) Patient History History Provided By: Medical Record, EMS Healthcare decision maker Resuscitation status Advanced Directive on File Past Medical/Surgical History Past Medical/Surgical History: (1) Alzheimer's dementia (2) Gastritis (3) Paroxysmal a-fib (4) Seizure disorder (5) Pressure ulcer (6) Tracheostomy in place (7) Diabetes mellitus (8) Anemia (9) HTN (hypertension) (10) S/P percutaneous endoscopic gastrostomy (PEG) tube placement Family History Family History: Patient reports no known family medical history. Social History Social History: (1) lives at [facility] Review of Systems ROS Narrative Unable to obtain as pt non-verbal Physical Exam Physical Exam Narrative General: eyes closed, non-verbal, unresponsive to voice or painful stimuli Head: normocephalic, without obvious abnormality, atraumatic Eyes: conjunctivae/corneas clear. PERRL, EOM's intact Throat: lips, mucosa, and tongue normal. MMM Neck: supple, symmetrical, trachea midline, and no JVD Lungs: clear to auscultation bilaterally Heart: regular rate and rhythm, S1, S2 normal, no murmur, click, rub or gallop Abdomen: soft, non-tender, non-distended, bowel sounds normal; no masses or organomegaly : +olvera Extremities: extremities normal, atraumatic, no cyanosis or edema Pulses: 2+ and symmetric Skin: skin color, texture, turgor normal; no rashes or lesions Neurologic: unable to asssess Last 24 Hour Vital Signs Date Time Temp Pulse Resp B/P (MAP) Pulse Ox O2 Delivery O2 Flow Rate FiO2 03/04/17 18:55 98 T-piece 10.0 35 03/04/17 18:55 T-piece 10.0 35 03/04/17 18:54 85 20 T-piece 10.0 35 03/04/17 17:50 97.7 75 20 131/66 Mechanical Ventilator 03/04/17 16:48 99.1 68 18 114/53 100 Room Air 5.0 03/04/17 14:26 99.1 70 12 107/41 100 Room Air 03/04/17 12:30 68 14 113/46 100 T-piece 5.0 03/04/17 12:30 68 14 T-piece 5.0 03/04/17 11:54 98.4 67 16 109/68 100 Trach Collar 5.0 Intake and Output 03/04/17 03/05/17 19:00 07:00 Intake Total 355 ml Output Total 50 ml Balance 305 ml Intake IV Total 355 ml Output Urine Total 50 ml # Bowel Movements 1 Laboratory Tests Test 03/04/17 12:30 03/04/17 12:40 Urine Color Yellow Urine Appearance Clear Urine pH 7 (4.5-8.0) Urine Specific [place] 1.005 (1.005-1.035) Urine Protein 1+ (NEGATIVE) H Urine Glucose (UA) Negative (NEGATIVE) Urine Ketones Negative (NEGATIVE) Urine Occult Blood 1+ (NEGATIVE) H Urine Nitrite Positive (NEGATIVE) H Urine Bilirubin Negative (NEGATIVE) Urine Urobilinogen Normal MG/DL (0.0-1.0) Urine Leukocyte Esterase 3+ (NEGATIVE) H Urine RBC 2-4 /HPF (0 - 0) H Urine WBC 15-20 /HPF (0 - 0) H Urine Squamous Epithelial Cells Occasional /LPF Urine Bacteria Many /HPF (NONE) H White Blood Count 9.0 K/UL (4.8-10.8) Red Blood Count 3.02 M/UL (4.70-6.10) L Hemoglobin 8.9 G/DL (14.2-18.0) L Hematocrit 27.5 % (42.0-52.0) L Mean Corpuscular Volume 91 FL (80-99) Mean Corpuscular Hemoglobin 29.3 PG (27.0-31.0) Mean Corpuscular Hemoglobin Concent 32.3 G/DL (32.0-36.0) Red Cell Distribution Width 15.8 % (11.6-14.8) H Platelet Count 206 K/UL (150-450) Mean Platelet Volume 7.4 FL (6.5-10.1) Neutrophils (%) (Auto) 72.6 % (45.0-75.0) Lymphocytes (%) (Auto) 13.8 % (20.0-45.0) L Monocytes (%) (Auto) 9.4 % (1.0-10.0) Eosinophils (%) (Auto) 3.7 % (0.0-3.0) H Basophils (%) (Auto) 0.6 % (0.0-2.0) Prothrombin Time 9.9 SEC (9.30-11.50) Prothromb Time International Ratio 0.9 (0.9-1.1) Activated Partial Thromboplast Time 30 SEC (23-33) Sodium Level 137 MMOL/L (136-145) Potassium Level 4.4 MMOL/L (3.5-5.1) Chloride Level 100 MMOL/L (98-107) Carbon Dioxide Level 35 MMOL/L (21-32) H Anion Gap 2 mmol/L (5-15) L Blood Urea Nitrogen 17 mg/dL (7-18) Creatinine 0.7 MG/DL (0.55-1.30) Estimat Glomerular Filtration Rate mL/min (>60) Glucose Level 208 MG/DL (74-106) H Calcium Level 9.1 MG/DL (8.5-10.1) Total Bilirubin 0.2 MG/DL (0.2-1.0) Aspartate Amino Transf (AST/SGOT) 13 U/L (15-37) L Alanine Aminotransferase (ALT/SGPT) 11 U/L (12-78) L Alkaline Phosphatase 119 U/L (46-116) H Total Creatine Kinase 46 U/L (26-308) Troponin I < 0.017 ng/mL (0.000-0.056) Pro-B-Type Natriuretic Peptide 476 pg/mL (0-125) H Total Protein 7.6 G/DL (6.4-8.2) Albumin 2.1 G/DL (3.4-5.0) L Globulin 5.5 g/dL Albumin/Globulin Ratio 0.4 (1.0-2.7) L Height (Feet): 6 Weight (Pounds): 180 Medications Current Medications Medications (Trade) Dose Ordered Sig/Dorie Route PRN Reason Start Time Stop Time Status Last Admin Dose Admin Acetaminophen (Tylenol) 650 mg Q4H PRN ORAL T>100.5 03/04/17 15:30 04/03/17 15:29 Albuterol/ Ipratropium (Albuterol/ Ipratropium) 3 ml Q4H PRN HHN Shortness of Breath 03/04/17 15:30 03/09/17 15:29 Dextrose (Dextrose 50%) STAT PRN IV Hypoglycemia 03/04/17 15:30 04/03/17 15:29 Divalproex Sodium (Depakote) 250 mg Q12HR ORAL 03/04/17 21:00 04/03/17 20:59 Heparin Sodium (Porcine) (Heparin 5000 units/ml) 5,000 units EVERY 12 HOURS SUBQ 03/04/17 21:00 04/03/17 20:59 Insulin Aspart (NovoLOG) BEFORE MEALS AND HS SUBQ 03/04/17 21:00 04/03/17 20:59 Levetiracetam (Keppra) 500 mg EVERY 12 HOURS ORAL 03/04/17 21:00 04/03/17 20:59 Lorazepam (Ativan 2mg/ml 1ml) 2 mg Q2H PRN IV For Anxiety 03/04/17 15:30 03/11/17 15:29 Morphine Sulfate (Morphine Sulfate) 4 mg Q4H PRN IVP Severe Pain (Pain Scale 7-10) 03/04/17 15:30 03/11/17 15:29 Ondansetron HCl (Zofran) 4 mg Q6H PRN IVP Nausea & Vomiting 03/04/17 15:30 04/03/17 15:29 Pantoprazole (Protonix) 40 mg DAILY IV 03/05/17 09:00 04/04/17 08:59 Piperacillin Sod/ Tazobactam Sod 3.375 gm/Sodium Chloride 55 ml @ 13.75 mls/ hr Q8HR IVPB 03/04/17 22:00 03/11/17 21:59 Polyethylene Glycol (Miralax) 17 gm DAILYPRN PRN ORAL Constipation 03/04/17 15:30 04/03/17 15:29 Vancomycin HCl (Vanco rx to dose) 1 ea DAILY PRN MISC . 03/04/17 17:00 04/03/17 16:59 Vancomycin HCl/ Dextrose 250 ml @ 125 mls/hr ONCE ONCE IVPB 03/04/17 18:00 03/04/17 19:59 03/04/17 18:31 Vancomycin HCl/ Dextrose 250 ml @ 166.667 mls/hr Q24H IVPB 03/05/17 18:00 03/10/17 17:59 Assessment/Plan Problem List: (1) UTI (urinary tract infection) ICD Codes: N39.0 - Urinary tract infection, site not specified SNOMED: 57509080 Qualifiers: Qualified Codes: T83.511A - Infection and inflammatory reaction due to indwelling urethral catheter, initial encounter; N39.0 - Urinary tract infection , site not specified (2) Aspiration pneumonia ICD Codes: J69.0 - Pneumonitis due to inhalation of food and vomit SNOMED: 173913040 (3) Acute toxic metabolic encephalopathy (4) Paroxysmal A-fib ICD Codes: I48.0 - Paroxysmal atrial fibrillation SNOMED: 558601137 (5) Advanced dementia ICD Codes: F03.90 - Unspecified dementia without behavioral disturbance SNOMED: 72961873 (6) Functional quadriplegia ICD Codes: R53.2 - Functional quadriplegia SNOMED: 553237425347964 (7) Tracheostomy in place ICD Codes: Z93.0 - Tracheostomy status SNOMED: 377552929 (8) S/P percutaneous endoscopic gastrostomy (PEG) tube placement ICD Codes: Z93.1 - Gastrostomy status SNOMED: 356355472 (9) Anemia ICD Codes: D64.9 - Anemia, unspecified SNOMED: 320211016 Qualifiers: Qualified Codes: D64.9 - Anemia, unspecified (10) Gastritis ICD Codes: K29.70 - Gastritis, unspecified, without bleeding SNOMED: 4018742 (11) Seizure disorder ICD Codes: G40.909 - Epilepsy, unspecified, not intractable, without status epilepticus SNOMED: 854447835 (12) HTN (hypertension) ICD Codes: I10 - Essential (primary) hypertension SNOMED: 12696228 (13) Diabetes mellitus ICD Codes: E11.9 - Type 2 diabetes mellitus without complications SNOMED: 94047480 Qualifiers: Qualified Codes: E11.8 - Type 2 diabetes mellitus with unspecified complications (14) Decubitus ulcer of right heel, stage 4 ICD Codes: L89.614 - Pressure ulcer of right heel, stage 4 SNOMED: 907027972 (15) Decubitus ulcer of sacral region, stage 4 ICD Codes: L89.154 - Pressure ulcer of sacral region, stage 4 SNOMED: 745906019, 987021417 Status: stable Assessment/Plan Admit to tele Hernesto reese (03/04-) ID and pulm consulted Exchange olvera F/u cultures Cont O2 via trach PRN Duonebs PRN Trend CBC, BMP Cont SNF meds Supportive care Wound care DVT Prophylaxis: SCD, HSQ Code Status: Full Hospital Classification Declaration: Based on this initial evaluation, and depending on the patient's clinical course, I anticipate that this patient will require hospitalization for 2-3 days for UTI, AMS and close respiratory/ hemodynamic monitoring. Disposition: Once the patient is stable to leave the hospital, I anticipate the patient will likely be discharged to the following environment: back to SNF I spent 72 minutes on this patient's case, and 38minutes were dedicated to counseling and/or care coordination. Discussed with patient/family, nursing staff, SW/CM, pulm, ID regarding clinical status, treatment course, and disposition planning. Time of note may not reflect time of encounter. Travis Hinojosa M.D. Mar 04, 2017 19:03
--- NOTE | 2017-03-04 19:18 | Infectious Diseases Prog Note ---
Assessment/Plan Assessment/Plan Full consult to follow: A) 1) uti, ? aspiration pna/hcap 2) olvera 3) trach, no vent 4) pmh noted P) 1) vancomycin and zosyn for now 2) check uc, labs, sc, chest x-ray 3 thank you Subjective Allergies: Coded Allergies: No Known Allergies (Unverified , 01/02/17) Objective Vital Signs Last 24 Hour Vital Signs Date Time Temp Pulse Resp B/P (MAP) Pulse Ox O2 Delivery O2 Flow Rate FiO2 03/04/17 18:55 98 T-piece 10.0 35 03/04/17 18:55 T-piece 10.0 35 03/04/17 18:54 85 20 T-piece 10.0 35 03/04/17 17:50 97.7 75 20 131/66 Mechanical Ventilator 03/04/17 16:48 99.1 68 18 114/53 100 Room Air 5.0 03/04/17 14:26 99.1 70 12 107/41 100 Room Air 03/04/17 12:30 68 14 113/46 100 T-piece 5.0 03/04/17 12:30 68 14 T-piece 5.0 03/04/17 11:54 98.4 67 16 109/68 100 Trach Collar 5.0 Height (Feet): 6 Weight (Pounds): 180 Laboratory Tests Test 03/04/17 12:30 03/04/17 12:40 Urine Color Yellow Urine Appearance Clear Urine pH 7 (4.5-8.0) Urine Specific [place] 1.005 (1.005-1.035) Urine Protein 1+ (NEGATIVE) H Urine Glucose (UA) Negative (NEGATIVE) Urine Ketones Negative (NEGATIVE) Urine Occult Blood 1+ (NEGATIVE) H Urine Nitrite Positive (NEGATIVE) H Urine Bilirubin Negative (NEGATIVE) Urine Urobilinogen Normal MG/DL (0.0-1.0) Urine Leukocyte Esterase 3+ (NEGATIVE) H Urine RBC 2-4 /HPF (0 - 0) H Urine WBC 15-20 /HPF (0 - 0) H Urine Squamous Epithelial Cells Occasional /LPF Urine Bacteria Many /HPF (NONE) H White Blood Count 9.0 K/UL (4.8-10.8) Red Blood Count 3.02 M/UL (4.70-6.10) L Hemoglobin 8.9 G/DL (14.2-18.0) L Hematocrit 27.5 % (42.0-52.0) L Mean Corpuscular Volume 91 FL (80-99) Mean Corpuscular Hemoglobin 29.3 PG (27.0-31.0) Mean Corpuscular Hemoglobin Concent 32.3 G/DL (32.0-36.0) Red Cell Distribution Width 15.8 % (11.6-14.8) H Platelet Count 206 K/UL (150-450) Mean Platelet Volume 7.4 FL (6.5-10.1) Neutrophils (%) (Auto) 72.6 % (45.0-75.0) Lymphocytes (%) (Auto) 13.8 % (20.0-45.0) L Monocytes (%) (Auto) 9.4 % (1.0-10.0) Eosinophils (%) (Auto) 3.7 % (0.0-3.0) H Basophils (%) (Auto) 0.6 % (0.0-2.0) Prothrombin Time 9.9 SEC (9.30-11.50) Prothromb Time International Ratio 0.9 (0.9-1.1) Activated Partial Thromboplast Time 30 SEC (23-33) Sodium Level 137 MMOL/L (136-145) Potassium Level 4.4 MMOL/L (3.5-5.1) Chloride Level 100 MMOL/L (98-107) Carbon Dioxide Level 35 MMOL/L (21-32) H Anion Gap 2 mmol/L (5-15) L Blood Urea Nitrogen 17 mg/dL (7-18) Creatinine 0.7 MG/DL (0.55-1.30) Estimat Glomerular Filtration Rate mL/min (>60) Glucose Level 208 MG/DL (74-106) H Calcium Level 9.1 MG/DL (8.5-10.1) Total Bilirubin 0.2 MG/DL (0.2-1.0) Aspartate Amino Transf (AST/SGOT) 13 U/L (15-37) L Alanine Aminotransferase (ALT/SGPT) 11 U/L (12-78) L Alkaline Phosphatase 119 U/L (46-116) H Total Creatine Kinase 46 U/L (26-308) Troponin I < 0.017 ng/mL (0.000-0.056) Pro-B-Type Natriuretic Peptide 476 pg/mL (0-125) H Total Protein 7.6 G/DL (6.4-8.2) Albumin 2.1 G/DL (3.4-5.0) L Globulin 5.5 g/dL Albumin/Globulin Ratio 0.4 (1.0-2.7) L Current Medications Medications (Trade) Dose Ordered Sig/Dorie Route PRN Reason Start Time Stop Time Status Last Admin Dose Admin Acetaminophen (Tylenol) 650 mg Q4H PRN ORAL T>100.5 03/04/17 15:30 04/03/17 15:29 Albuterol/ Ipratropium (Albuterol/ Ipratropium) 3 ml Q4H PRN HHN Shortness of Breath 03/04/17 15:30 03/09/17 15:29 Dextrose (Dextrose 50%) STAT PRN IV Hypoglycemia 03/04/17 15:30 04/03/17 15:29 Divalproex Sodium (Depakote) 250 mg Q12HR ORAL 03/04/17 21:00 04/03/17 20:59 Heparin Sodium (Porcine) (Heparin 5000 units/ml) 5,000 units EVERY 12 HOURS SUBQ 03/04/17 21:00 04/03/17 20:59 Insulin Aspart (NovoLOG) BEFORE MEALS AND HS SUBQ 03/04/17 21:00 04/03/17 20:59 Levetiracetam (Keppra) 500 mg EVERY 12 HOURS ORAL 03/04/17 21:00 04/03/17 20:59 Lorazepam (Ativan 2mg/ml 1ml) 2 mg Q2H PRN IV For Anxiety 03/04/17 15:30 03/11/17 15:29 Morphine Sulfate (Morphine Sulfate) 4 mg Q4H PRN IVP Severe Pain (Pain Scale 7-10) 03/04/17 15:30 03/11/17 15:29 Ondansetron HCl (Zofran) 4 mg Q6H PRN IVP Nausea & Vomiting 03/04/17 15:30 04/03/17 15:29 Pantoprazole (Protonix) 40 mg DAILY IV 03/05/17 09:00 04/04/17 08:59 Piperacillin Sod/ Tazobactam Sod 3.375 gm/Sodium Chloride 55 ml @ 13.75 mls/ hr Q8HR IVPB 03/04/17 22:00 03/11/17 21:59 Polyethylene Glycol (Miralax) 17 gm DAILYPRN PRN ORAL Constipation 03/04/17 15:30 04/03/17 15:29 Vancomycin HCl (Vanco rx to dose) 1 ea DAILY PRN MISC . 03/04/17 17:00 04/03/17 16:59 Vancomycin HCl/ Dextrose 250 ml @ 125 mls/hr ONCE ONCE IVPB 03/04/17 18:00 03/04/17 19:59 03/04/17 18:31 Vancomycin HCl/ Dextrose 250 ml @ 166.667 mls/hr Q24H IVPB 03/05/17 18:00 03/10/17 17:59 JENNIFER BEVERLY Mar 04, 2017 19:18
[2017-03-04 19:53] VITALS: BP 125/64
[2017-03-04] MEDS ORDERED: NovoLOG Insulin Flexpen SUBQ SCH (21:00)
[2017-03-04] MEDS: Heparin 5000 units/ml inj SUBQ SCH (21:47)
[2017-03-04] MEDS: levETIRAcetam 500mg/5ml Liquid GT SCH (21:48)
[2017-03-04] MEDS: Piperacillin/Tazobactam 3.375 GM in NS 55 ML IVPB SCH (21:49)
[2017-03-04] MEDS: Depakote 125mg Sprinkles GT SCH (21:49)
--- NOTE | 2017-03-04 22:06 | Consultation ---
History of Present Illness General Date patient seen: Mar 04, 2017 Chief Complaint: General Complaint Present Illness HPI 81 year old male with hx of CVA, Dementia, physiologic quadriplegia, PEG, Trach , persistent vegetative state, senior living resident was sent in for rapid heart rate of 118 at the alf facility. The patient is supposed to be on metoprolol. When paramedics got there his heart rate was 67. He has a history of paroxysmal atrial fibrillation. He is unable to give any history and has no complaints. Initial evaluation showed that pt have retrocardiac infiltrate and sepsis and admitted to telemetry for further evaluation. Allergies: Coded Allergies: No Known Allergies (Unverified , 01/02/17) Medication History Scheduled Amino Acids/Protein Hydrolys (Pro-Stat Liquid), 30 ML GT DAILY, (Reported) Ascorbic Acid* (Vitamin C*), Unknown Dose GT DAILY, (Reported) Ascorbic Acid* (Vitamin C*), 250 MG GT DAILY, (Reported) Chlorhexidine Gluconate* (Hibiclens*), 5 OZ ORAL EVERY 12 HOURS, (Reported) Divalproex Sodium* (Depakote*), 250 MG PO Q12HR, (Reported) Docusate Sodium (Docusate Sodium), 100 MG GT TWICE A DAY, (Reported) Docusate Sodium* (Colace*), 100 MG ORAL TWICE A DAY, (Reported) Famotidine (Famotidine), 20 MG GT TWICE A DAY, (Reported) Ferrous Sulfate (Ferrous Sulfate), 7.5 MG GT DAILY, (Reported) Heparin Sod (Porcine) (Heparin Sodium*), 5,000 UNITS SUBQ EVERY 12 HOURS, ( Reported) Insulin Aspart* (Novolog*), 0 SUBQ BEFORE MEALS AND HS, (Reported) Insulin Detemir (Levemir Flextouch), 42 UNIT SQ BID, (Reported) Lacosamide (Vimpat), 100 MG GT EVERY 12 HOURS, (Reported) Levetiracetam (Keppra), 500 MG ORAL EVERY 12 HOURS, (Reported) Levetiracetam* (Levetiracetam*), 1,500 MG GT BID, (Reported) Metoprolol Tartrate (Metoprolol Tartrate), 12.5 MG GT Q12HR Metronidazole* (Flagyl*), 500 MG ORAL EVERY 8 HOURS Pantoprazole* (Protonix*), 40 MG ORAL DAILY, (Reported) Polyethylene Glycol 3350* (Miralax*), 17 GM ORAL DAILY, (Reported) Valproate Sodium (Depakene), 500 MG GT EVERY 8 HOURS, (Reported) Zinc Sulfate (Zinc Sulfate*), 220 MG GT DAILY, (Reported) [Amikacin Rx to dose], 1 EA MISC DAILY Scheduled PRN Acetaminophen* (Acetaminophen*), 320 MG GT Q6H PRN for Mild Pain/Temp > 100.5, ( Reported) Hydrocodone Bit/Acetaminophen 5-325* ([place] 5-325 Tablet*), 1 TAB ORAL Q6HR PRN for For Pain, (Reported) Ipratropium/Albuterol Sulfate (Combivent Respimat Inhal [place]), 3 ML IH EVERY 6 HOURS PRN for Shortness of Breath, (Reported) Ondansetron* (Zofran*), 4 MG ORAL Q4HR PRN for Nausea & Vomiting, (Reported) Ondansetron* (Zofran*), 4 MG GT Q4HR PRN for Nausea & Vomiting, (Reported) Polyethylene Glycol 3350* (Polyethylene Glycol 3350*), 17 GM GT DAILY PRN for Constipation, (Reported) Miscellaneous Medications Insulin Aspart* (Novolog*), 0 SUBQ, (Reported) Ipratropium/Albuterol Sulfate (DuoNeb 0.5-3(2.5)mg/3ml), 3 ML HHN, (Reported) Patient History Healthcare decision maker Resuscitation status Advanced Directive on File Past Medical/Surgical History Past Medical/Surgical History: (1) Tracheostomy in place (2) Advanced dementia (3) Functional quadriplegia (4) Anemia (5) Diabetes mellitus (6) Decubitus ulcer of right heel, stage 4 Review of Systems All Other Systems: negative except mentioned in HPI Physical Exam General Appearance: cachetic Lines, tubes and drains: peripheral HEENT: normocephalic, anicteric Neck: non-tender, normal alignment Respiratory/Chest: chest wall non-tender, lungs clear, rhonchi - left, rhonchi - right Cardiovascular/Chest: normal peripheral pulses, normal rate Abdomen: normal bowel sounds, non tender Genitourinary/Rectal: normal genital exam Extremities: normal range of motion, normal inspection Skin Exam: normal pigmentation 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: 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 artist 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 grossly normal Last 24 Hour Vital Signs Date Time Temp Pulse Resp B/P (MAP) Pulse Ox O2 Delivery O2 Flow Rate FiO2 03/04/17 19:53 97.2 72 20 125/64 100 03/04/17 18:55 98 T-piece 10.0 35 03/04/17 18:55 T-piece 10.0 35 03/04/17 18:54 85 20 T-piece 10.0 35 03/04/17 17:50 97.7 75 20 131/66 Mechanical Ventilator 03/04/17 16:48 99.1 68 18 114/53 100 Room Air 5.0 03/04/17 14:26 99.1 70 12 107/41 100 Room Air 03/04/17 12:30 68 14 113/46 100 T-piece 5.0 03/04/17 12:30 68 14 T-piece 5.0 03/04/17 11:54 98.4 67 16 109/68 100 Trach Collar 5.0 Intake and Output 03/04/17 03/05/17 19:00 07:00 Intake Total 355 ml Output Total 50 ml Balance 305 ml Intake IV Total 355 ml Output Urine Total 50 ml # Bowel Movements 1 Laboratory Tests Test 03/04/17 12:30 03/04/17 12:40 Urine Color Yellow Urine Appearance Clear Urine pH 7 (4.5-8.0) Urine Specific [place] 1.005 (1.005-1.035) Urine Protein 1+ (NEGATIVE) H Urine Glucose (UA) Negative (NEGATIVE) Urine Ketones Negative (NEGATIVE) Urine Occult Blood 1+ (NEGATIVE) H Urine Nitrite Positive (NEGATIVE) H Urine Bilirubin Negative (NEGATIVE) Urine Urobilinogen Normal MG/DL (0.0-1.0) Urine Leukocyte Esterase 3+ (NEGATIVE) H Urine RBC 2-4 /HPF (0 - 0) H Urine WBC 15-20 /HPF (0 - 0) H Urine Squamous Epithelial Cells Occasional /LPF Urine Bacteria Many /HPF (NONE) H White Blood Count 9.0 K/UL (4.8-10.8) Red Blood Count 3.02 M/UL (4.70-6.10) L Hemoglobin 8.9 G/DL (14.2-18.0) L Hematocrit 27.5 % (42.0-52.0) L Mean Corpuscular Volume 91 FL (80-99) Mean Corpuscular Hemoglobin 29.3 PG (27.0-31.0) Mean Corpuscular Hemoglobin Concent 32.3 G/DL (32.0-36.0) Red Cell Distribution Width 15.8 % (11.6-14.8) H Platelet Count 206 K/UL (150-450) Mean Platelet Volume 7.4 FL (6.5-10.1) Neutrophils (%) (Auto) 72.6 % (45.0-75.0) Lymphocytes (%) (Auto) 13.8 % (20.0-45.0) L Monocytes (%) (Auto) 9.4 % (1.0-10.0) Eosinophils (%) (Auto) 3.7 % (0.0-3.0) H Basophils (%) (Auto) 0.6 % (0.0-2.0) Prothrombin Time 9.9 SEC (9.30-11.50) Prothromb Time International Ratio 0.9 (0.9-1.1) Activated Partial Thromboplast Time 30 SEC (23-33) Sodium Level 137 MMOL/L (136-145) Potassium Level 4.4 MMOL/L (3.5-5.1) Chloride Level 100 MMOL/L (98-107) Carbon Dioxide Level 35 MMOL/L (21-32) H Anion Gap 2 mmol/L (5-15) L Blood Urea Nitrogen 17 mg/dL (7-18) Creatinine 0.7 MG/DL (0.55-1.30) Estimat Glomerular Filtration Rate mL/min (>60) Glucose Level 208 MG/DL (74-106) H Calcium Level 9.1 MG/DL (8.5-10.1) Total Bilirubin 0.2 MG/DL (0.2-1.0) Aspartate Amino Transf (AST/SGOT) 13 U/L (15-37) L Alanine Aminotransferase (ALT/SGPT) 11 U/L (12-78) L Alkaline Phosphatase 119 U/L (46-116) H Total Creatine Kinase 46 U/L (26-308) Troponin I < 0.017 ng/mL (0.000-0.056) Pro-B-Type Natriuretic Peptide 476 pg/mL (0-125) H Total Protein 7.6 G/DL (6.4-8.2) Albumin 2.1 G/DL (3.4-5.0) L Globulin 5.5 g/dL Albumin/Globulin Ratio 0.4 (1.0-2.7) L Height (Feet): 6 Weight (Pounds): 180 Medications Current Medications Medications (Trade) Dose Ordered Sig/Dorie Route PRN Reason Start Time Stop Time Status Last Admin Dose Admin Acetaminophen (Tylenol) 650 mg Q4H PRN ORAL T>100.5 03/04/17 15:30 04/03/17 15:29 Albuterol/ Ipratropium (Albuterol/ Ipratropium) 3 ml Q4H PRN HHN Shortness of Breath 03/04/17 15:30 03/09/17 15:29 Dextrose (Dextrose 50%) STAT PRN IV Hypoglycemia 03/04/17 15:30 04/03/17 15:29 Divalproex Sodium (Depakote Sprinkles) 250 mg Q12HR GT 03/04/17 21:00 04/03/17 20:59 03/04/17 21:49 Heparin Sodium (Porcine) (Heparin 5000 units/ml) 5,000 units EVERY 12 HOURS SUBQ 03/04/17 21:00 04/03/17 20:59 03/04/17 21:47 Insulin Aspart (NovoLOG) Q6HR SUBQ 03/05/17 00:00 04/03/17 20:59 Levetiracetam (Keppra) 500 mg Q12HR GT 03/04/17 21:00 04/03/17 20:59 03/04/17 21:48 Lorazepam (Ativan 2mg/ml 1ml) 2 mg Q2H PRN IV For Anxiety 03/04/17 15:30 03/11/17 15:29 Morphine Sulfate (Morphine Sulfate) 4 mg Q4H PRN IVP Severe Pain (Pain Scale 7-10) 03/04/17 15:30 03/11/17 15:29 Ondansetron HCl (Zofran) 4 mg Q6H PRN IVP Nausea & Vomiting 03/04/17 15:30 04/03/17 15:29 Pantoprazole (Protonix) 40 mg DAILY IV 03/05/17 09:00 04/04/17 08:59 Piperacillin Sod/ Tazobactam Sod 3.375 gm/Sodium Chloride 55 ml @ 13.75 mls/ hr Q8HR IVPB 03/04/17 22:00 03/11/17 21:59 03/04/17 21:49 Polyethylene Glycol (Miralax) 17 gm DAILYPRN PRN ORAL Constipation 03/04/17 15:30 04/03/17 15:29 Vancomycin HCl (Vanco rx to dose) 1 ea DAILY PRN MISC . 03/04/17 17:00 04/03/17 16:59 Vancomycin HCl/ Dextrose 250 ml @ 166.667 mls/hr Q24H IVPB 03/05/17 18:00 03/10/17 17:59 Assessment/Plan Problem List: (1) Sepsis ICD Codes: A41.9 - Sepsis, unspecified organism SNOMED: 13078349 (2) Nosocomial pneumonia ICD Codes: J18.9 - Pneumonia, unspecified organism SNOMED: 030138146 (3) Tracheostomy in place ICD Codes: Z93.0 - Tracheostomy status SNOMED: 898173675 (4) Functional quadriplegia ICD Codes: R53.2 - Functional quadriplegia SNOMED: 958107120122290 (5) Advanced dementia ICD Codes: F03.90 - Unspecified dementia without behavioral disturbance SNOMED: 40777585 (6) Sacral decubitus ulcer ICD Codes: L89.159 - Pressure ulcer of sacral region, unspecified stage SNOMED: 213863160 Qualifiers: Qualified Codes: L89.154 - Pressure ulcer of sacral region, stage 4 (7) Paroxysmal a-fib ICD Codes: I48.0 - Paroxysmal atrial fibrillation SNOMED: 142518702 (8) G tube feedings ICD Codes: Z93.1 - Gastrostomy status SNOMED: 601743781, 485126279 Assessment/Plan check sputum IV abx respiratory treatment monitor in telemetry wound care gtube site care trach care. BAM SCHAEFFER Mar 04, 2017 22:06
[2017-03-04] MEDS: Albuterol/Ipratropium 3ml neb HHN PRN (23:56)
[2017-03-05] VITALS: BP 125/59
[2017-03-05] MEDS: NovoLOG Insulin Flexpen SUBQ SCH ×5 (00:38→23:58)
[2017-03-05 04:00] VITALS: BP 113/57
[2017-03-05] MEDS: Albuterol/Ipratropium 3ml neb HHN PRN (05:48)
[2017-03-05] MEDS: Piperacillin/Tazobactam 3.375 GM in NS 55 ML IVPB SCH ×3 (06:24→21:46)
[2017-03-05 08:00] VITALS: BP_SYST 129; BP_SYST 165; BP_DIAS 67; BP_DIAS 77
[2017-03-05] MEDS: Depakote 125mg Sprinkles GT SCH ×2 (08:27→21:29)
[2017-03-05] MEDS: levETIRAcetam 500mg/5ml Liquid GT SCH ×2 (08:27→21:29)
[2017-03-05] MEDS: Pantoprazole Inj IV SCH (08:28)
[2017-03-05] MEDS: Heparin 5000 units/ml inj SUBQ SCH ×2 (08:28→21:31)
[2017-03-05 09:11] LABS: BASOPHILS % (AUTO) 0.9 % (0.0-2.0); EOSINOPHILS % (AUTO) 2.4 % (0.0-3.0); MEAN CORPUSCULAR HEMOGLOBIN 29.1 PG (27.0-31.0); MEAN CORPUSCULAR HGB CONC 31.9 G/DL (32.0-36.0); MEAN CORPUSCULAR VOLUME 91 FL (80-99); MEAN PLATELET VOLUME 7.3 FL (6.5-10.1); MONOCYTES % (AUTO) 11.2 % (1.0-10.0); NEUTROPHILS % (AUTO) 70.5 % (45.0-75.0); PLATELET COUNT 219 K/UL (150-450); RED BLOOD COUNT 3.12 M/UL (4.70-6.10); RED CELL DISTRIBUTION WIDTH 15.5 % (11.6-14.8); WHITE BLOOD COUNT 7.3 K/UL (4.8-10.8)
[2017-03-05 09:27] LABS: ANION GAP 1 mmol/L (5-15); CALCIUM 9.2 MG/DL (8.5-10.1); CARBON DIOXIDE 36 MMOL/L (21-32); CHLORIDE 101 MMOL/L (98-107); CREATININE 0.7 MG/DL (0.55-1.30); PHOSPHORUS 2.6 MG/DL (2.5-4.9); POTASSIUM 4.2 MMOL/L (3.5-5.1); SODIUM 138 MMOL/L (136-145)
--- NOTE | 2017-03-05 11:24 | Wound Care Consultation ---
Wound Assessment Wound Assessment #1: Wound Number: 1 Wound Present on Admission: Yes New Wound: No Status Change of Wound: No Wound Location Body Site Modif: right, lateral Wound Location Body Site: heel Wound Type: pressure ulcer Elsa Test: Does not Elsa Pressure Ulcer Stage: Unstageable Wound Thickness: Full Thickness Wound Length: 3.5 Wound Width: 3.5 Wound Depth: utd Percent of Wound Bed Yellow/Wh: 70 Percent of Wound Black/Brown: 30 Wound Drainage Description: Serosanguineous Wound Drainage Amount: Scant Wound Drainage Odor: None/Absent Tissue Surrounding Wound: Macerated Wound General Appearance: Blackened - yellow Wound Assessment #2: Wound Number: 2 Wound Present on Admission: Yes New Wound: No Status Change of Wound: No Wound Location Body Site Modif: right, lateral Wound Location Body Site: metatarsal head Wound Type: pressure ulcer - with yellow dry scab adhered to wound bed Elsa Test: Does not Elsa Wound Thickness: Full Thickness Wound Length: 2.0 Wound Width: 2.0 Wound Depth: utd Percent of Wound Bed Yellow/Wh: 100 - dry Wound Drainage Amount: None Wound Drainage Odor: None/Absent Tissue Surrounding Wound: Erythemic Wound General Appearance: Reddened Wound Assessment #3: Wound Number: 3 Wound Present on Admission: Yes New Wound: No Status Change of Wound: No Wound Location Body Site Modif: mid Wound Location Body Site: sacral Wound Type: pressure ulcer Elsa Test: Does not Elsa Pressure Ulcer Stage: Unstageable Wound Thickness: Full Thickness Wound Length: 8.5 Wound Width: 8.0 Wound Depth: utd Percent of Wound [place]/Red: 50 Percent of Wound Bed Yellow/Wh: 20 Percent of Wound Purple/Maroon: 30 Wound Drainage Description: Serosanguineous Wound Drainage Amount: Moderate Wound Drainage Odor: None/Absent Tissue Surrounding Wound: Macerated Wound General Appearance: Reddened - yellow, purple Wound Assessment #4: Wound Number: 4 Wound Present on Admission: Yes New Wound: No Status Change of Wound: No Wound Location Body Site Modif: left Wound Location Body Site: heel Wound Type: pressure ulcer Elsa Test: Does not Elsa Pressure Ulcer Stage: Deep Tissue Injury Wound Thickness: Full Thickness Wound Length: 4.5 Wound Width: 4.5 Wound Depth: utd Percent of Wound Purple/Maroon: 100 Wound Drainage Amount: None Wound Drainage Odor: None/Absent Tissue Surrounding Wound: Intact Wound General Appearance: Asymptomatic Wound Comment #1 Right lateral 1st metatarsal head pressure ulcer with yellow scab adhered to wound bed #2 Right Heel unstageable pressure ulcer #3 Sacral unstageable pressure ulcer #4 Left heel DTI pressure ulcer Recommendation -Right Heel unstageable pressure ulcer and Sacral unstageable pressure ulcer, Cleanse with saline, pat dry, apply skin barrier film, apply [place] gel wound bed, cover [place] Silicone drg daily and PRN soiled/dislodged -Right lateral 1st metatarsal head pressure ulcer with yellow scab adhered to wound bed and Left heel DTI pressure ulcer, Cleanse with saline, pat dry, apply skin barrier film daily and leave area open to air -Keep clean and dry -Turn and reposition -Low air loss mattress -Optimize nutrition -Offload both heels -Heel protector on both heels -Assess and f/u accordingly for any changes VARUN PURDY RN Mar 05, 2017 11:24
--- NOTE | 2017-03-05 11:49 | Pulmonology Progress Note ---
Assessment/Plan Problems: (1) Sepsis (2) Nosocomial pneumonia (3) Anemia (4) Sacral decubitus ulcer (5) Paroxysmal a-fib (6) G tube feedings (7) Advanced dementia (8) Tracheostomy in place (9) Functional quadriplegia Assessment/Plan sputum pending continue abx d/w ID consultation tolerating feeding wound care. Subjective ROS Limited/Unobtainable: Yes Interval Events: comfortable Allergies: Coded Allergies: No Known Allergies (Unverified , 01/02/17) Objective Last 24 Hour Vital Signs Date Time Temp Pulse Resp B/P (MAP) Pulse Ox O2 Delivery O2 Flow Rate FiO2 03/05/17 08:00 84 03/05/17 08:00 97.9 91 21 129/67 98 Mechanical Ventilator 03/05/17 06:46 81 T-piece 10.0 35 03/05/17 06:46 T-piece 10.0 35 03/05/17 06:46 81 18 T-piece 10.0 35 03/05/17 05:54 80 18 100 T-piece 8.0 30 03/05/17 05:47 35 03/05/17 05:46 82 19 99 T-piece 10.0 35 03/05/17 04:00 82 03/05/17 04:00 97.5 93 18 113/57 100 T-piece 30 03/05/17 00:08 88 20 98 T-piece 8.0 30 03/05/17 00:00 93 03/05/17 00:00 98.8 94 18 125/59 100 T-piece 30 03/04/17 23:58 92 22 98 T-piece 10.0 35 03/04/17 23:58 35 03/04/17 23:56 T-piece 10.0 35 03/04/17 23:56 98 T-piece 10.0 35 03/04/17 20:00 76 03/04/17 19:53 97.2 72 20 125/64 100 03/04/17 18:55 98 T-piece 10.0 35 03/04/17 18:55 T-piece 10.0 35 03/04/17 18:54 85 20 T-piece 10.0 35 03/04/17 17:50 97.7 75 20 131/66 Mechanical Ventilator 03/04/17 16:48 99.1 68 18 114/53 100 Room Air 5.0 03/04/17 14:26 99.1 70 12 107/41 100 Room Air 03/04/17 12:30 68 14 113/46 100 T-piece 5.0 03/04/17 12:30 68 14 T-piece 5.0 03/04/17 11:54 98.4 67 16 109/68 100 Trach Collar 5.0 Intake and Output 03/05/17 03/06/17 19:00 07:00 Intake Total 265.00 ml Balance 265.00 ml Intake Free Water 150 ml IV Total 55.00 ml Tube Feeding 60 ml General Appearance: WD/WN HEENT: atraumatic, status post trach Respiratory/Chest: chest wall non-tender, lungs clear Cardiovascular: normal peripheral pulses, normal rate Abdomen: normal bowel sounds, soft, non tender Extremities: no cyanosis Skin: no rash, no lesions Microbiology Date/Time Source Procedure Growth Status 03/04/17 12:30 Urine,Clean Catch Urine Culture - Preliminary Gram Negative Bacillus 1 Resulted 03/04/17 19:00 Sacral Wound Gram Stain - Final Resulted 03/04/17 19:00 Sacral Wound Wound Culture Pending Resulted Laboratory Tests 03/04/17 12:30: Urine Color Yellow, Urine Appearance Clear, Urine pH 7, Urine Specific [place] 1.005, Urine Protein 1+H, Urine Glucose (UA) Negative, Urine Ketones Negative, Urine Occult Blood 1+H, Urine Nitrite PositiveH, Urine Bilirubin Negative, Urine Urobilinogen Normal, Urine Leukocyte Esterase 3+H, Urine RBC 2-4H, Urine WBC 15-20H, Urine Squamous Epithelial Cells Occasional, Urine Bacteria ManyH 03/04/17 12:40: White Blood Count 9.0, Red Blood Count 3.02L, Hemoglobin 8.9L, Hematocrit 27.5L , Mean Corpuscular Volume 91, Mean Corpuscular Hemoglobin 29.3, Mean Corpuscular Hemoglobin Concent 32.3, Red Cell Distribution Width 15.8H, Platelet Count 206, Mean Platelet Volume 7.4, Neutrophils (%) (Auto) 72.6, Lymphocytes (%) (Auto) 13.8L, Monocytes (%) (Auto) 9.4, Eosinophils (%) (Auto) 3.7H, Basophils (%) (Auto) 0.6, Prothrombin Time 9.9, Prothromb Time International Ratio 0.9, Activated Partial Thromboplast Time 30, Sodium Level 137, Potassium Level 4.4, Chloride Level 100, Carbon Dioxide Level 35H, Anion Gap 2L, Blood Urea Nitrogen 17, Creatinine 0.7, Estimat Glomerular Filtration Rate , Glucose Level 208H, Calcium Level 9.1, Total Bilirubin 0.2, Aspartate Amino Transf (AST/SGOT) 13L, Alanine Aminotransferase (ALT/SGPT) 11L, Alkaline Phosphatase 119H, Total Creatine Kinase 46, Troponin I < 0.017, Pro-B-Type Natriuretic Peptide 476H, Total Protein 7.6, Albumin 2.1L, Globulin 5.5, Albumin /Globulin Ratio 0.4L 03/05/17 08:25: White Blood Count 7.3, Red Blood Count 3.12L, Hemoglobin 9.1L, Hematocrit 28.5L , Mean Corpuscular Volume 91, Mean Corpuscular Hemoglobin 29.1, Mean Corpuscular Hemoglobin Concent 31.9L, Red Cell Distribution Width 15.5H, Platelet Count 219, Mean Platelet Volume 7.3, Neutrophils (%) (Auto) 70.5, Lymphocytes (%) (Auto) 15.0L, Monocytes (%) (Auto) 11.2H, Eosinophils (%) (Auto ) 2.4, Basophils (%) (Auto) 0.9, Sodium Level 138, Potassium Level 4.2, Chloride Level 101, Carbon Dioxide Level 36H, Anion Gap 1L, Blood Urea Nitrogen 10, Creatinine 0.7, Estimat Glomerular Filtration Rate , Glucose Level 124H, Calcium Level 9.2, Albumin 2.0L, Phosphorus Level 2.6 Current Medications Medications (Trade) Dose Ordered Sig/Dorie Route PRN Reason Start Time Stop Time Status Last Admin Dose Admin Acetaminophen (Tylenol) 650 mg Q4H PRN ORAL T>100.5 03/04/17 15:30 04/03/17 15:29 Albuterol/ Ipratropium (Albuterol/ Ipratropium) 3 ml Q4H PRN HHN Shortness of Breath 03/04/17 15:30 03/09/17 15:29 03/05/17 05:48 Dextrose (Dextrose 50%) STAT PRN IV Hypoglycemia 03/04/17 15:30 04/03/17 15:29 Divalproex Sodium (Depakote Sprinkles) 250 mg Q12HR GT 11/16/17 21:00 04/03/17 20:59 03/05/17 08:27 Heparin Sodium (Porcine) (Heparin 5000 units/ml) 5,000 units EVERY 12 HOURS SUBQ 03/04/17 21:00 04/03/17 20:59 03/05/17 08:28 Insulin Aspart (NovoLOG) Q6HR SUBQ 03/05/17 00:00 04/03/17 20:59 03/05/17 06:25 Levetiracetam (Keppra) 500 mg Q12HR GT 03/04/17 21:00 04/03/17 20:59 03/05/17 08:27 Lorazepam (Ativan 2mg/ml 1ml) 2 mg Q2H PRN IV For Anxiety 03/04/17 15:30 03/11/17 15:29 Morphine Sulfate (Morphine Sulfate) 4 mg Q4H PRN IVP Severe Pain (Pain Scale 7-10) 03/04/17 15:30 03/11/17 15:29 Ondansetron HCl (Zofran) 4 mg Q6H PRN IVP Nausea & Vomiting 03/04/17 15:30 04/03/17 15:29 Pantoprazole (Protonix) 40 mg DAILY IV 03/05/17 09:00 04/04/17 08:59 03/05/17 08:28 Piperacillin Sod/ Tazobactam Sod 3.375 gm/Sodium Chloride 55 ml @ 13.75 mls/ hr Q8HR IVPB 03/04/17 22:00 03/11/17 21:59 03/05/17 06:24 Polyethylene Glycol (Miralax) 17 gm DAILYPRN PRN ORAL Constipation 03/04/17 15:30 04/03/17 15:29 Vancomycin HCl (Vanco rx to dose) 1 ea DAILY PRN MISC . 03/04/17 17:00 04/03/17 16:59 Vancomycin HCl/ Dextrose 250 ml @ 166.667 mls/hr Q24H IVPB 03/05/17 18:00 03/10/17 17:59 BAM SCHAEFFER Mar 05, 2017 11:49
[2017-03-05 12:00] VITALS: BP 116/63
--- NOTE | 2017-03-05 15:29 | Infectious Diseases Prog Note ---
Assessment/Plan Assessment/Plan A) 1) gram neg uti, aspiration pna/hcap vs cap, ? sacral wound infection 2) chronic olvera 3) trach, no vent 4) sz, dm, htn, anemia, arrhythmia, af, dementia, qp, cva, weakness, dysphagia, g-tube 5) allergies - negative, fh-nc, sh-negative, mar noted, notes and records noted 6) d/w RN P) 1) vancomycin and zosyn for now, amikacin x 1 given 2) check uc, labs, sc, chest x-ray 3) wound care per protocol 4) continue treatment per primary and consultants 5) orders entered and noted Subjective Constitutional: Denies: fever HEENT: Reports: congestion - mild Respiratory: Reports: shortness of breath - mild Cardiovascular: Denies: chest pain Gastrointestinal/Abdominal: Denies: nausea, vomiting, diarrhea Genitourinary: Reports: other - + olvera Neurologic: Reports: weakness, other - poorly responsive Psychiatric: Reports: no symptoms Skin: Reports: other - + wounds, Denies: rash Hematologic: Denies: bleeding Musculoskeletal: Denies: pain Allergies: Coded Allergies: No Known Allergies (Unverified , 01/02/17) Objective Vital Signs Last 24 Hour Vital Signs Date Time Temp Pulse Resp B/P (MAP) Pulse Ox O2 Delivery O2 Flow Rate FiO2 03/05/17 13:23 83 T-piece 10.0 35 03/05/17 13:23 T-piece 10.0 35 03/05/17 12:00 97.7 83 20 116/63 99 Mechanical Ventilator 03/05/17 12:00 77 03/05/17 08:00 84 03/05/17 08:00 97.9 91 21 129/67 98 Mechanical Ventilator 03/05/17 06:46 81 T-piece 10.0 35 03/05/17 06:46 T-piece 10.0 35 03/05/17 06:46 81 18 T-piece 10.0 35 03/05/17 05:54 80 18 100 T-piece 8.0 30 03/05/17 05:47 35 03/05/17 05:46 82 19 99 T-piece 10.0 35 03/05/17 04:00 82 03/05/17 04:00 97.5 93 18 113/57 100 T-piece 30 03/05/17 00:08 88 20 98 T-piece 8.0 30 03/05/17 00:00 93 03/05/17 00:00 98.8 94 18 125/59 100 T-piece 30 03/04/17 23:58 92 22 98 T-piece 10.0 35 03/04/17 23:58 35 03/04/17 23:56 T-piece 10.0 35 03/04/17 23:56 98 T-piece 10.0 35 03/04/17 20:00 76 03/04/17 19:53 97.2 72 20 125/64 100 03/04/17 18:55 98 T-piece 10.0 35 03/04/17 18:55 T-piece 10.0 35 03/04/17 18:54 85 20 T-piece 10.0 35 03/04/17 17:50 97.7 75 20 131/66 Mechanical Ventilator 03/04/17 16:48 99.1 68 18 114/53 100 Room Air 5.0 Height (Feet): 6 Height (Inches): 0.00 Weight (Pounds): 180 General Appearance: no acute distress HEENT: normocephalic, atraumatic, anicteric, mucous membranes moist, EOMI, pharynx normal, supple, no JVD Respiratory/Chest: crackles/rales, rhonchi - bilaterally Cardiovascular: normal rate, regular rhythm, no gallop/murmur, no JVD Abdomen: normal bowel sounds, soft, non tender, no organomegaly, non distended Genitourinary: other - + olvera - urine cloudy Extremities: no cyanosis Skin: no rash, other - wounds noted Neurologic/Psychiatric: other - + generalized weakness, poory responsive Lymphatic: no neck adenopathy Musculoskeletal: no effusion Objective 03/05 - chest x-ray Impression: New finding of left-sided pleural effusion Retrocardiac atelectasis and consolidation, new since previous study of 2016 Right basilar atelectasis, improved since 07/04/17 Microbiology Date/Time Source Procedure Growth Status 03/04/17 17:00 Stool Clostridium difficile Toxin Assay - Final Complete 03/04/17 12:30 Urine,Clean Catch Urine Culture - Preliminary Gram Negative Bacillus 1 Resulted 03/04/17 19:00 Sacral Wound Gram Stain - Final Resulted 03/04/17 19:00 Sacral Wound Wound Culture Pending Resulted Laboratory Tests Test 03/05/17 08:25 White Blood Count 7.3 K/UL (4.8-10.8) Red Blood Count 3.12 M/UL (4.70-6.10) L Hemoglobin 9.1 G/DL (14.2-18.0) L Hematocrit 28.5 % (42.0-52.0) L Mean Corpuscular Volume 91 FL (80-99) Mean Corpuscular Hemoglobin 29.1 PG (27.0-31.0) Mean Corpuscular Hemoglobin Concent 31.9 G/DL (32.0-36.0) L Red Cell Distribution Width 15.5 % (11.6-14.8) H Platelet Count 219 K/UL (150-450) Mean Platelet Volume 7.3 FL (6.5-10.1) Neutrophils (%) (Auto) 70.5 % (45.0-75.0) Lymphocytes (%) (Auto) 15.0 % (20.0-45.0) L Monocytes (%) (Auto) 11.2 % (1.0-10.0) H Eosinophils (%) (Auto) 2.4 % (0.0-3.0) Basophils (%) (Auto) 0.9 % (0.0-2.0) Sodium Level 138 MMOL/L (136-145) Potassium Level 4.2 MMOL/L (3.5-5.1) Chloride Level 101 MMOL/L (98-107) Carbon Dioxide Level 36 MMOL/L (21-32) H Anion Gap 1 mmol/L (5-15) L Blood Urea Nitrogen 10 mg/dL (7-18) Creatinine 0.7 MG/DL (0.55-1.30) Estimat Glomerular Filtration Rate mL/min (>60) Glucose Level 124 MG/DL (74-106) H Calcium Level 9.2 MG/DL (8.5-10.1) Phosphorus Level 2.6 MG/DL (2.5-4.9) Albumin 2.0 G/DL (3.4-5.0) L Current Medications Medications (Trade) Dose Ordered Sig/Dorie Route PRN Reason Start Time Stop Time Status Last Admin Dose Admin Acetaminophen (Tylenol) 650 mg Q4H PRN ORAL T>100.5 11/16/17 15:30 04/03/17 15:29 Albuterol/ Ipratropium (Albuterol/ Ipratropium) 3 ml Q4H PRN HHN Shortness of Breath 03/04/17 15:30 03/09/17 15:29 03/05/17 05:48 Dextrose (Dextrose 50%) STAT PRN IV Hypoglycemia 03/04/17 15:30 04/03/17 15:29 Divalproex Sodium (Depakote Sprinkles) 250 mg Q12HR GT 03/04/17 21:00 04/03/17 20:59 03/05/17 08:27 Heparin Sodium (Porcine) (Heparin 5000 units/ml) 5,000 units EVERY 12 HOURS SUBQ 03/04/17 21:00 04/03/17 20:59 03/05/17 08:28 Insulin Aspart (NovoLOG) Q6HR SUBQ 03/05/17 00:00 04/03/17 20:59 03/05/17 11:54 Levetiracetam (Keppra) 500 mg Q12HR GT 03/04/17 21:00 04/03/17 20:59 03/05/17 08:27 Lorazepam (Ativan 2mg/ml 1ml) 2 mg Q2H PRN IV For Anxiety 03/04/17 15:30 03/11/17 15:29 Morphine Sulfate (Morphine Sulfate) 4 mg Q4H PRN IVP Severe Pain (Pain Scale 7-10) 03/04/17 15:30 03/11/17 15:29 Ondansetron HCl (Zofran) 4 mg Q6H PRN IVP Nausea & Vomiting 03/04/17 15:30 04/03/17 15:29 Pantoprazole (Protonix) 40 mg DAILY IV 03/05/17 09:00 04/04/17 08:59 03/05/17 08:28 Piperacillin Sod/ Tazobactam Sod 3.375 gm/Sodium Chloride 55 ml @ 13.75 mls/ hr Q8HR IVPB 03/04/17 22:00 03/11/17 21:59 03/05/17 13:44 Polyethylene Glycol (Miralax) 17 gm DAILYPRN PRN ORAL Constipation 03/04/17 15:30 04/03/17 15:29 Vancomycin HCl (Vanco rx to dose) 1 ea DAILY PRN MISC . 03/04/17 17:00 04/03/17 16:59 Vancomycin HCl/ Dextrose 250 ml @ 166.667 mls/hr Q24H IVPB 03/05/17 18:00 03/10/17 17:59 JENNIFER BEVERLY Mar 05, 2017 15:29
[2017-03-05 16:00] VITALS: BP 125/59
[2017-03-05] MEDS: Vancomycin 1250mg/D5W 250ml IVPB SCH (18:07)
--- NOTE | 2017-03-05 20:22 | General Progress Note ---
Assessment/Plan Problem List: (1) UTI (urinary tract infection) ICD Codes: N39.0 - Urinary tract infection, site not specified SNOMED: 60854885 Qualifiers: Qualified Codes: T83.511A - Infection and inflammatory reaction due to indwelling urethral catheter, initial encounter; N39.0 - Urinary tract infection , site not specified (2) Aspiration pneumonia ICD Codes: J69.0 - Pneumonitis due to inhalation of food and vomit SNOMED: 645262143 (3) Acute toxic metabolic encephalopathy (4) Paroxysmal A-fib ICD Codes: I48.0 - Paroxysmal atrial fibrillation SNOMED: 097977961 (5) Advanced dementia ICD Codes: F03.90 - Unspecified dementia without behavioral disturbance SNOMED: 26634132 (6) Functional quadriplegia ICD Codes: R53.2 - Functional quadriplegia SNOMED: 272758994907304 (7) Tracheostomy in place ICD Codes: Z93.0 - Tracheostomy status SNOMED: 060812238 (8) S/P percutaneous endoscopic gastrostomy (PEG) tube placement ICD Codes: Z93.1 - Gastrostomy status SNOMED: 450340844 (9) Anemia ICD Codes: D64.9 - Anemia, unspecified SNOMED: 967463341 Qualifiers: Qualified Codes: D64.9 - Anemia, unspecified (10) Gastritis ICD Codes: K29.70 - Gastritis, unspecified, without bleeding SNOMED: 4009456 (11) Seizure disorder ICD Codes: G40.909 - Epilepsy, unspecified, not intractable, without status epilepticus SNOMED: 203079251 (12) HTN (hypertension) ICD Codes: I10 - Essential (primary) hypertension SNOMED: 43694095 (13) Diabetes mellitus ICD Codes: E11.9 - Type 2 diabetes mellitus without complications SNOMED: 95518785 Qualifiers: Qualified Codes: E11.8 - Type 2 diabetes mellitus with unspecified complications (14) Pressure ulcer Assessment & Plan: #1 Right lateral 1st metatarsal head pressure ulcer with yellow scab adhered to wound bed #2 Right Heel unstageable pressure ulcer #3 Sacral unstageable pressure ulcer #4 Left heel DTI pressure ulcer ICD Codes: L89.90 - Pressure ulcer of unspecified site, unspecified stage SNOMED: 393181114 Status: stable Assessment/Plan Monitor on tele tele Empiric vanco and zosyn (11/16-) s/p levaquin, cefepime and amikacin in ED on 03/04 ID and pulm consulted, appreciate rec's s/p olvera exchange on 03/05/17 F/u cultures--urine cx w/ >100K GNR so far Cont O2 via trach PRN Duonebs PRN Trend CBC, BMP Cont SNF meds Supportive care Wound care DVT Prophylaxis: SCD, HSQ Code Status: Full Hospital Classification Declaration: Based on this initial evaluation, and depending on the patient's clinical course, I anticipate that this patient will require hospitalization for 2-3 days for UTI, AMS and close respiratory/ hemodynamic monitoring. Disposition: Once the patient is stable to leave the hospital, I anticipate the patient will likely be discharged to the following environment: back to SNF Discussed with patient/family, nursing staff, SW/CM, pulm, ID regarding clinical status, treatment course, and disposition planning. Time of note may not reflect time of encounter. Subjective Date patient seen: Mar 05, 2017 Time patient seen: 15:00 ROS Limited/Unobtainable: Yes Allergies: Coded Allergies: No Known Allergies (Unverified , 01/02/17) Subjective No acute o/n events Urine cx shows >100K GNR Olvera exchanged Pt bedbound and nonverbal at baseline ROS limited 2/2 dementia and pt nonverbal Objective Last 24 Hour Vital Signs Date Time Temp Pulse Resp B/P (MAP) Pulse Ox O2 Delivery O2 Flow Rate FiO2 03/05/17 19:57 99 T-piece 10.0 35 03/05/17 19:56 105 18 T-piece 10.0 35 03/05/17 16:00 79 03/05/17 16:00 97.9 78 19 125/59 99 Mechanical Ventilator 03/05/17 13:23 83 T-piece 10.0 35 03/05/17 13:23 T-piece 10.0 35 03/05/17 12:00 97.7 83 20 116/63 99 Mechanical Ventilator 03/05/17 12:00 77 03/05/17 08:00 84 03/05/17 08:00 97.9 91 21 129/67 98 Mechanical Ventilator 03/05/17 06:46 81 T-piece 10.0 35 03/05/17 06:46 T-piece 10.0 35 03/05/17 06:46 81 18 T-piece 10.0 35 03/05/17 05:54 80 18 100 T-piece 8.0 30 03/05/17 05:47 35 03/05/17 05:46 82 19 99 T-piece 10.0 35 03/05/17 04:00 82 03/05/17 04:00 97.5 93 18 113/57 100 T-piece 30 03/05/17 00:08 88 20 98 T-piece 8.0 30 03/05/17 00:00 93 03/05/17 00:00 98.8 94 18 125/59 100 T-piece 30 03/04/17 23:58 92 22 98 T-piece 10.0 35 03/04/17 23:58 35 03/04/17 23:56 T-piece 10.0 35 03/04/17 23:56 98 T-piece 10.0 35 Intake and Output 03/05/17 03/06/17 19:00 07:00 Intake Total 920.00 ml 250.000 ml Output Total 500 ml Balance 420.00 ml 250.000 ml Intake Free Water 450 ml IV Total 110.00 ml 250.000 ml Tube Feeding 360 ml Output Urine Total 500 ml # Bowel Movements 1 Laboratory Tests 03/05/17 08:25: White Blood Count 7.3, Red Blood Count 3.12L, Hemoglobin 9.1L, Hematocrit 28.5L , Mean Corpuscular Volume 91, Mean Corpuscular Hemoglobin 29.1, Mean Corpuscular Hemoglobin Concent 31.9L, Red Cell Distribution Width 15.5H, Platelet Count 219, Mean Platelet Volume 7.3, Neutrophils (%) (Auto) 70.5, Lymphocytes (%) (Auto) 15.0L, Monocytes (%) (Auto) 11.2H, Eosinophils (%) (Auto ) 2.4, Basophils (%) (Auto) 0.9, Sodium Level 138, Potassium Level 4.2, Chloride Level 101, Carbon Dioxide Level 36H, Anion Gap 1L, Blood Urea Nitrogen 10, Creatinine 0.7, Estimat Glomerular Filtration Rate , Glucose Level 124H, Calcium Level 9.2, Phosphorus Level 2.6, Albumin 2.0L Height (Feet): 6 Height (Inches): 0.00 Weight (Pounds): 180 Objective General: eyes closed, nonverbal, unresponsive to voice and painful stimuli Head: normocephalic, without obvious abnormality, atraumatic Eyes: conjunctivae/corneas clear. PERRL, EOM's intact Throat: lips, mucosa, and tongue normal. MMM Neck: supple, symmetrical, trachea midline, and no JVD Lungs: +rhonchi b/l, decreased breath sounds on L side Heart: regular rate and rhythm, S1, S2 normal, no murmur, click, rub or gallop Abdomen: soft, non-tender, non-distended, bowel sounds normal; no masses or organomegaly Extremities: extremities normal, atraumatic, no cyanosis or edema Pulses: 2+ and symmetric Skin: skin color, texture, turgor normal; no rashes or lesions Neurologic: unable to assess Travis Hinojosa M.D. Mar 05, 2017 20:22
[2017-03-05 20:23] VITALS: BP 109/64
[2017-03-05] MEDS ORDERED: Vancomycin 1 GM in D5W 275 ML IV SCH (23:00)
[2017-03-06] VITALS (8 sets, daily range): BP systolic 91–135; BP diastolic 50–70
--- NOTE | 2017-03-06 03:01 | Consultation ---
DATE OF CONSULTATION: 03/04/2017 INFECTIOUS DISEASES CONSULTATION ATTENDING PHYSICIAN: Guy Lima M.D. I was asked by Dr. Robles to see this patient, who is Dr. Lima's associate. REASON FOR CONSULTATION: Urinary tract infection, possible pneumonia, and sacral wound. CHIEF COMPLAINT: The patient's chief complaint coming in to the hospital is elevated heart rate of 118 at the F. HISTORY OF PRESENT ILLNESS: This is an 81-year-old male, who overall is a very poor historian. The patient presents to the hospital with elevated heart rate. The patient has a history of paroxysmal atrial fibrillation. The patient was noted to have complicated UTI. Infectious Diseases consultation was requested for antibiotic management. The patient is at risk for pneumonia. The patient was started on Zosyn and vancomycin. He was also given amikacin. Cultures are pending at this time. MAR was noted. Orders were noted. Notes and records were reviewed. Case was discussed with RN and also communicated and discussed with Dr. Robles. The patient really could not give any further history. He is on trach, he is no vent. He is nonverbal. PAST MEDICAL HISTORY: Includes the following: The patient has a past medical history of diabetes, history of trach, no vent, history of respiratory failure, history of hypertension, history of seizures, anemia, arrhythmias, paroxysmal atrial fibrillation, dementia, quadriplegia, CVA, paraplegia, weakness, dysphagia, and G-tube. MEDICATIONS: Upon reviewing the MAR, he is on the following medications. He is on Zosyn and vancomycin. He is given amikacin. He is on NovoLog insulin, Protonix, heparin, Depakote, and Keppra. He was given Levaquin and amikacin. He was given cefepime. He is currently on vancomycin and Zosyn. He is on albuterol treatment, morphine, acetaminophen, polyethylene glycol, Zofran, lorazepam, and IV fluids. Medications are noted and reconciliated. ALLERGIES: No known drug allergies. SOCIAL HISTORY: Per the records, negative for smoking, alcohol, or drug abuse. FAMILY HISTORY: Per the records is noncontributory. Negative for exposure to tuberculosis or cancer. REVIEW OF SYSTEMS: CONSTITUTIONAL: The patient has generalized weakness and fatigue. He is poorly responsive. No fevers. HEAD AND NECK: He has a trach. CARDIAC: On pressor. GI: No nausea, vomiting, or diarrhea. : He has chronic Crump. PULMONARY: Mild congestion. SKIN: No new rash. He has sacral wound. NEUROLOGIC: No seizures. Generalized weakness, poorly responsive. PHYSICAL EXAMINATION: VITAL SIGNS: Temperature was 99.1 degrees, pulse rate 70, respiratory rate 12, blood pressure 107/41, saturation 100%. Outside his heart rate is as high as 118. GENERAL: Lethargic, weak, trach, no vent. He has a chronic Crump. HEAD AND NECK: Trach intact. Eye exam, no icterus. Normocephalic. LUNGS: Bilateral rhonchi and rales at the bases. HEART: Regular. No gallop or murmur. Occasionally irregular. ABDOMEN: Soft. Positive bowel sounds. G-tube intact. SKIN: No rash. Sacral wound has some area of slough. MUSCULOSKELETAL: No effusion. Legs are without cellulitis. PERIPHERAL VASCULAR: No cyanosis or gangrene. Other wounds were reviewed and noted. RECTAL: Deferred. GENITOURINARY: He has a Crump. Urine is cloudy. LINES: Line sites are without phlebitis. NEUROLOGIC: Generally weak, poorly responsive. LABORATORY AND DIAGNOSTIC DATA: Laboratory data is as follows. White count 9.0, hemoglobin 8.9, and platelet count is 206. Creatinine is 0.7. Pertinent labs, urinalysis had 3+ leukocyte esterase, 15 to 20 white blood cells, many bacteria. Imaging studies, chest x-ray showed retrocardiac atelectasis versus consolidation and right basilar atelectasis. Urine culture is pending. Other cultures pending. Sputum culture has been ordered. Blood culture has been ordered. Wound culture has been ordered. ASSESSMENT AND PLAN: 1. The patient has complicated urinary tract infection with tachycardia and paroxysmal atrial fibrillation. The patient also looks like he had an aspiration versus healthcare-acquired pneumonia versus community-acquired pneumonia. At this time, I will continue Zosyn and vancomycin for gram-negative methicillin-resistant Staphylococcus aureus and Streptococcus coverage to cover gram-negative urinary tract infection, possible Enterococcus urinary tract infection and other types of urinary tract infection and also cover pneumonia including aspiration, healthcare-acquired pneumonia, Streptococcus pneumonia, and community-acquired pneumonia. Continue vancomycin and Zosyn. Check cultures, wound culture, sputum culture, and urine culture. Followup labs and chest x-ray. Continue wound care protocol. 2. The patient has a history of seizures. 3. Diabetes. 4. Hypertension. 5. Blood sugar and blood pressure control. 6. Anemia. 7. Arrhythmias. 8. Paroxysmal atrial fibrillation. 9. Dementia. 10. Quadriplegia and paraplegia. 11. Cerebrovascular accident. 12. paraplegia 13. Dysphagia. 14. Gastrostomy tube. 15. Anemia. 16. No known drug allergies. 17. Family history noncontributory. 18. Social history negative. 19. MAR was noted. 20. Case discussed with RN. 21. Continue treatment per primary consultants. 22. Skin care protocol. 23. Notes and records were reviewed. Bear Ocampo M.D. DR: Chava JOB#: [id number] CC: QUINTON
[2017-03-06] MEDS: Piperacillin/Tazobactam 3.375 GM in NS 55 ML IVPB SCH ×3 (05:42→22:06)
[2017-03-06] MEDS: NovoLOG Insulin Flexpen SUBQ SCH ×3 (05:52→17:10)
[2017-03-06 07:38] LABS: MEAN CORPUSCULAR HEMOGLOBIN 29.7 PG (27.0-31.0); MEAN CORPUSCULAR HGB CONC 32.7 G/DL (32.0-36.0); MEAN CORPUSCULAR VOLUME 91 FL (80-99); MEAN PLATELET VOLUME 7.6 FL (6.5-10.1); PLATELET COUNT 230 K/UL (150-450); RED BLOOD COUNT 3.01 M/UL (4.70-6.10); RED CELL DISTRIBUTION WIDTH 15.6 % (11.6-14.8); WHITE BLOOD COUNT 6.8 K/UL (4.8-10.8)
[2017-03-06 07:57] LABS: LACTATE DEHYDROGENASE 163 U/L (81-234)
[2017-03-06 08:21] LABS: PROTHROMBIN TIME 10.1 SEC (9.30-11.50)
[2017-03-06 08:40] LABS: FOLIC ACID > 20.0 NG/ML (3.1-17.5); IRON 48 ug/dL (50-175); TOTAL IRON BINDING CAPACITY 201 ug/dL (250-450)
[2017-03-06] MEDS: levETIRAcetam 500mg/5ml Liquid GT SCH ×2 (08:50→21:11)
[2017-03-06] MEDS: Pantoprazole Inj IV SCH (08:50)
[2017-03-06] MEDS: Depakote 125mg Sprinkles GT SCH ×2 (08:50→21:11)
[2017-03-06] MEDS: Heparin 5000 units/ml inj SUBQ SCH ×2 (08:55→21:13)
[2017-03-06 10:05] LABS: PATH BLOOD SMEAR/OMC SENT TO PATHOLOGIST
[2017-03-06 10:08] LABS: BAND NEUTROPHILS % (MANUAL) 0 % (0-8); BASOPHILS % (MANUAL) 0 % (0-2); EOSINOPHILS % (MANUAL) 3 % (0-3); LYMPHOCYTES % (MANUAL) 18 % (20-45); NEUTROPHILS % (MANUAL) 69 % (45-75); PLATELET ESTIMATE ADEQUATE; PLATELET MORPHOLOGY NORMAL; TOTAL CELLS COUNTED 100
--- NOTE | 2017-03-06 10:25 | Diagnostic Imaging Report ---
Indication: Shortness of breath Technique: One view of the chest Comparison: 03/04/2017 Findings: Slightly improved inspiration, with slightly decreased right basilar atelectasis. There is also decreased atelectasis at the left lung base. Tracheostomy remains. Impression: Preparation with improved bibasilar atelectasis. Otherwise little global director air and climate change 2 days
[2017-03-06 10:38] LABS: RETICULOCYTE COUNT 2.1 % (0.0-2.0)
[2017-03-06 10:40] LABS: ERYTHROCYTE SEDIMENTATION RATE 125 MM/HR (0-30)
[2017-03-06] MEDS ORDERED: Tubing IV Secondary IV ONE (10:44)
[2017-03-06] MEDS ORDERED: NS 275ml ONE (10:44)
[2017-03-06] MEDS: Colistin 150mg vial IVP SCH ×2 (11:00→21:11)
[2017-03-06] MEDS: Albuterol/Ipratropium 3ml neb HHN PRN (13:46)
--- NOTE | 2017-03-06 14:48 | Infectious Diseases Prog Note ---
Assessment/Plan Assessment/Plan A) 1) KPC/Klebsiella uti, gram neg chaney, staph aureus/gram neg sacral wound infection 2) chronic olvera 3) trach, no vent 4) sz, dm, htn, anemia, arrhythmia, af, dementia, qp, cva, weakness, dysphagia, g-tube 5) allergies - negative, fh-nc, sh-negative, mar noted, notes and records noted 6) d/w RN P) 1) vancomycin and zosyn, add polymyxin 2) check culture, labs and chest x-ray 3) wound care per protocol 4) continue treatment per primary and consultants 5) orders entered and noted Subjective Constitutional: Denies: fever HEENT: Denies: congestion Respiratory: Reports: other - trach, no vent, Denies: shortness of breath Cardiovascular: Denies: chest pain Gastrointestinal/Abdominal: Denies: nausea, vomiting, diarrhea Genitourinary: Reports: other - + olvera Neurologic: Denies: headache Psychiatric: Denies: depression Skin: Reports: other - wound covered , Denies: rash Hematologic: Denies: bleeding Musculoskeletal: Denies: pain Allergies: Coded Allergies: No Known Allergies (Unverified , 01/02/17) Objective Vital Signs Last 24 Hour Vital Signs Date Time Temp Pulse Resp B/P (MAP) Pulse Ox O2 Delivery O2 Flow Rate FiO2 03/06/17 13:56 89 20 98 T-piece 10.0 35 03/06/17 13:30 98 24 T-piece 10.0 35 03/06/17 13:30 98 24 93 T-piece 10.0 35 03/06/17 13:30 93 T-piece 10.0 35 03/06/17 13:30 T-piece 10.0 35 03/06/17 12:09 80 118/62 03/06/17 12:00 78 03/06/17 11:52 99/52 03/06/17 11:39 99.1 73 20 92/50 100 T-piece 10.0 03/06/17 08:38 98.2 79 20 127/70 100 T-piece 10.0 03/06/17 08:00 92 03/06/17 07:28 100 T-piece 10.0 35 03/06/17 07:28 T-piece 10.0 35 03/06/17 07:28 84 20 T-piece 10.0 35 03/06/17 04:56 97.2 82 21 107/69 98 Endotracheal Tube 03/06/17 04:00 82 03/06/17 01:30 T-piece 10.0 35 03/06/17 01:29 99 T-piece 10.0 35 03/06/17 00:41 98.4 79 24 135/70 95 Room Air 03/06/17 00:00 78 03/05/17 20:23 98.2 81 19 109/64 95 Room Air 03/05/17 20:00 80 03/05/17 19:58 T-piece 10.0 35 03/05/17 19:57 99 T-piece 10.0 35 03/05/17 19:56 105 18 T-piece 10.0 35 03/05/17 16:00 79 03/05/17 16:00 97.9 78 19 125/59 99 Mechanical Ventilator Height (Feet): 6 Height (Inches): 0.00 Weight (Pounds): 180 General Appearance: no acute distress HEENT: normocephalic, atraumatic, anicteric, mucous membranes moist, status post trach, other - no vent Respiratory/Chest: lungs clear, normal breath sounds, no respiratory distress, no accessory muscle use Cardiovascular: normal rate, regular rhythm, no gallop/murmur, no JVD Abdomen: normal bowel sounds, soft, non tender, no organomegaly, non distended Genitourinary: other - + olvera - urine cloudy Extremities: no cyanosis Skin: no rash Neurologic/Psychiatric: other - lethargic and poorly responsive Lymphatic: no neck adenopathy Musculoskeletal: no effusion Objective 03/05 - chest x-ray Impression: New finding of left-sided pleural effusion Retrocardiac atelectasis and consolidation, new since previous study of 2016 Right basilar atelectasis, improved since 07/04/1703/06 - chest x-ray - Comparison: 03/04/2017 Findings: Slightly improved inspiration, with slightly decreased right basilar atelectasis. There is also decreased atelectasis at the left lung base. Tracheostomy remains. Impression: Preparation with improved bibasilar atelectasis. Microbiology Date/Time Source Procedure Growth Status 03/05/17 05:50 Sputum Gram Stain - Final Resulted 03/05/17 05:50 Sputum Culture - Preliminary Gram Negative Bacillus 1 Resulted 03/04/17 15:00 Nasal Nares MRSA Culture - Final NO METHICILLIN RESISTANT STAPH AUREUS... Complete 03/04/17 17:00 Stool Clostridium difficile Toxin Assay - Final Complete 03/04/17 12:30 Urine,Clean Catch Urine Culture - Final K.pneumoniae Carbapenem Resist Complete 03/04/17 19:00 Sacral Wound Gram Stain - Final Resulted 03/04/17 19:00 Wound Culture - Preliminary Gram Negative Bacillus 1 Staphylococcus Aureus Resulted Laboratory Tests Test 03/06/17 06:00 White Blood Count 6.8 K/UL (4.8-10.8) Red Blood Count 3.01 M/UL (4.70-6.10) L Hemoglobin 8.9 G/DL (14.2-18.0) L Hematocrit 27.4 % (42.0-52.0) L Mean Corpuscular Volume 91 FL (80-99) Mean Corpuscular Hemoglobin 29.7 PG (27.0-31.0) Mean Corpuscular Hemoglobin Concent 32.7 G/DL (32.0-36.0) Red Cell Distribution Width 15.6 % (11.6-14.8) H Platelet Count 230 K/UL (150-450) Mean Platelet Volume 7.6 FL (6.5-10.1) Neutrophils (%) (Auto) % (45.0-75.0) Lymphocytes (%) (Auto) % (20.0-45.0) Monocytes (%) (Auto) % (1.0-10.0) Eosinophils (%) (Auto) % (0.0-3.0) Basophils (%) (Auto) % (0.0-2.0) Differential Total Cells Counted 100 Neutrophils % (Manual) 69 % (45-75) Lymphocytes % (Manual) 18 % (20-45) L Monocytes % (Manual) 10 % (1-10) Eosinophils % (Manual) 3 % (0-3) Basophils % (Manual) 0 % (0-2) Band Neutrophils 0 % (0-8) Platelet Estimate Adequate Platelet Morphology Normal Red Blood Cell Morphology Normal Erythrocyte Sedimentation Rate 125 MM/HR (0-30) H Reticulocyte Count 2.1 % (0.0-2.0) H Prothrombin Time 10.1 SEC (9.30-11.50) Prothromb Time International Ratio 1.0 (0.9-1.1) Activated Partial Thromboplast Time 32 SEC (23-33) Iron Level 48 ug/dL (50-175) L Total Iron Binding Capacity 201 ug/dL (250-450) L Percent Iron Saturation 24 % (15-50) Unsaturated Iron Binding 153 ug/dL (112-346) Lactate Dehydrogenase 163 U/L (81-234) Vitamin B12 Level 1553 PG/ML (193-986) H Folate > 20.0 NG/ML (3.1-17.5) H Current Medications Medications (Trade) Dose Ordered Sig/Dorie Route PRN Reason Start Time Stop Time Status Last Admin Dose Admin Acetaminophen (Tylenol) 650 mg Q4H PRN ORAL T>100.5 03/04/17 15:30 04/03/17 15:29 Albuterol/ Ipratropium (Albuterol/ Ipratropium) 3 ml Q4H PRN HHN Shortness of Breath 03/04/17 15:30 03/09/17 15:29 03/06/17 13:46 Colistimethate Sodium (Colistin) 150 mg Q12HR IVP 03/06/17 11:30 03/13/17 11:29 03/06/17 11:00 Dextrose (Dextrose 50%) STAT PRN IV Hypoglycemia 03/04/17 15:30 04/03/17 15:29 Divalproex Sodium (Depakote Sprinkles) 250 mg Q12HR GT 03/04/17 21:00 04/03/17 20:59 03/06/17 08:50 Heparin Sodium (Porcine) (Heparin 5000 units/ml) 5,000 units EVERY 12 HOURS SUBQ 03/04/17 21:00 04/03/17 20:59 03/06/17 08:55 Insulin Aspart (NovoLOG) Q6HR SUBQ 03/05/17 00:00 04/03/17 20:59 03/06/17 12:00 Levetiracetam (Keppra) 500 mg Q12HR GT 03/04/17 21:00 04/03/17 20:59 03/06/17 08:50 Lorazepam (Ativan 2mg/ml 1ml) 2 mg Q2H PRN IV For Anxiety 03/04/17 15:30 03/11/17 15:29 Morphine Sulfate (Morphine Sulfate) 4 mg Q4H PRN IVP Severe Pain (Pain Scale 7-10) 03/04/17 15:30 03/11/17 15:29 Ondansetron HCl (Zofran) 4 mg Q6H PRN IVP Nausea & Vomiting 03/04/17 15:30 04/03/17 15:29 Pantoprazole (Protonix) 40 mg DAILY IV 03/05/17 09:00 04/04/17 08:59 03/06/17 08:50 Piperacillin Sod/ Tazobactam Sod 3.375 gm/Sodium Chloride 55 ml @ 13.75 mls/ hr Q8HR IVPB 03/04/17 22:00 03/11/17 21:59 03/06/17 13:30 Polyethylene Glycol (Miralax) 17 gm DAILYPRN PRN ORAL Constipation 03/04/17 15:30 04/03/17 15:29 Vancomycin HCl (Vanco rx to dose) 1 ea DAILY PRN MISC . 03/04/17 17:00 04/03/17 16:59 Vancomycin HCl/ Dextrose 250 ml @ 166.667 mls/hr Q24H IVPB 03/05/17 18:00 03/10/17 17:59 03/05/17 18:07 JENNIFER BEVERLY Mar 06, 2017 14:48
--- NOTE | 2017-03-06 15:20 | Pulmonology Progress Note ---
Assessment/Plan Assessment/Plan ASSESSMENT UTI HCAP vs aspiration Chronic respiratory failure with tracheostomy status dysphagia, G tube Anemia DM seizure disorder R heel decub ulcer un-stageable , POA sacral decub POA, un-stageable PLAN OF CARE tele Abx ID follows sputum cx + GNB urine cx + KPC, stool C dif negative trach care titrate FiO2 to keep sat above 02% Pulmonary toilet fup CXR with improved bibasilar atelectasis. strict aspiration precautions, GT feeding, monitor tolerance Venous Duplex BLE negative BS management with SS of insulin DVT GI prophylaxis seizure precautions continue Depakote and Keppra bowel regimen wound care as per wound nurse recommendations transfer to [place] floor case discussed and evaluated by supervising physician Subjective Allergies: Coded Allergies: No Known Allergies (Unverified , 01/02/17) Subjective no leukocytosis, low grade fever this am no signs of respiratory distress on current FiO2 Objective Last 24 Hour Vital Signs Date Time Temp Pulse Resp B/P (MAP) Pulse Ox O2 Delivery O2 Flow Rate FiO2 03/06/17 13:56 89 20 98 T-piece 10.0 35 03/06/17 13:30 98 24 T-piece 10.0 35 03/06/17 13:30 98 24 93 T-piece 10.0 35 03/06/17 13:30 93 T-piece 10.0 35 03/06/17 13:30 T-piece 10.0 35 03/06/17 12:09 80 118/62 03/06/17 12:00 78 03/06/17 11:52 99/52 03/06/17 11:39 99.1 73 20 92/50 100 T-piece 10.0 03/06/17 08:38 98.2 79 20 127/70 100 T-piece 10.0 03/06/17 08:00 92 03/06/17 07:28 100 T-piece 10.0 35 03/06/17 07:28 T-piece 10.0 35 03/06/17 07:28 84 20 T-piece 10.0 35 03/06/17 04:56 97.2 82 21 107/69 98 Endotracheal Tube 03/06/17 04:00 82 03/06/17 01:30 T-piece 10.0 35 03/06/17 01:29 99 T-piece 10.0 35 03/06/17 00:41 98.4 79 24 135/70 95 Room Air 03/06/17 00:00 78 03/05/17 20:23 98.2 81 19 109/64 95 Room Air 03/05/17 20:00 80 03/05/17 19:58 T-piece 10.0 35 03/05/17 19:57 99 T-piece 10.0 35 03/05/17 19:56 105 18 T-piece 10.0 35 03/05/17 16:00 79 03/05/17 16:00 97.9 78 19 125/59 99 Mechanical Ventilator Intake and Output 03/06/17 03/07/17 19:00 07:00 Intake Total 27.50 ml Balance 27.50 ml IV Total 27.50 ml General Appearance: no acute distress, other - bedridden chronically ill looking elderly male with trach HEENT: normocephalic, atraumatic, anicteric, status post trach - with large, white and thick secretions Respiratory/Chest: rhonchi - scattered Cardiovascular: normal peripheral pulses, normal rate - SR with PVC , no JVD Abdomen: normal bowel sounds, soft, non tender, other - G tueb Extremities: no edema Neurologic/Psychiatric: abnormal gait - bedridden , other - awake, poorly but resposnie Musculoskeletal: atrophy - BLE Microbiology Date/Time Source Procedure Growth Status 03/05/17 05:50 Sputum Gram Stain - Final Resulted 03/05/17 05:50 Sputum Culture - Preliminary Gram Negative Bacillus 1 Resulted 03/04/17 15:00 Nasal Nares MRSA Culture - Final NO METHICILLIN RESISTANT STAPH AUREUS... Complete 03/04/17 17:00 Stool Clostridium difficile Toxin Assay - Final Complete 03/04/17 12:30 Urine,Clean Catch Urine Culture - Final K.pneumoniae Carbapenem Resist Complete 03/04/17 19:00 Sacral Wound Gram Stain - Final Resulted 03/04/17 19:00 Wound Culture - Preliminary Gram Negative Bacillus 1 Staphylococcus Aureus Resulted Laboratory Tests 03/06/17 06:00: White Blood Count 6.8, Red Blood Count 3.01L, Hemoglobin 8.9L, Hematocrit 27.4L , Mean Corpuscular Volume 91, Mean Corpuscular Hemoglobin 29.7, Mean Corpuscular Hemoglobin Concent 32.7, Red Cell Distribution Width 15.6H, Platelet Count 230, Mean Platelet Volume 7.6, Neutrophils (%) (Auto) , Lymphocytes (%) (Auto) , Monocytes (%) (Auto) , Eosinophils (%) (Auto) , Basophils (%) (Auto) , Differential Total Cells Counted 100, Neutrophils % ( Manual) 69, Lymphocytes % (Manual) 18L, Monocytes % (Manual) 10, Eosinophils % ( Manual) 3, Basophils % (Manual) 0, Band Neutrophils 0, Platelet Estimate Adequate, Platelet Morphology Normal, Red Blood Cell Morphology Normal, Erythrocyte Sedimentation Rate 125H, Reticulocyte Count 2.1H, Prothrombin Time 10.1, Prothromb Time International Ratio 1.0, Activated Partial Thromboplast Time 32, Iron Level 48L, Total Iron Binding Capacity 201L, Percent Iron Saturation 24, Unsaturated Iron Binding 153, Lactate Dehydrogenase 163, Vitamin B12 Level 1553H, Folate > 20.0H Current Medications Medications (Trade) Dose Ordered Sig/Dorie Route PRN Reason Start Time Stop Time Status Last Admin Dose Admin Acetaminophen (Tylenol) 650 mg Q4H PRN ORAL T>100.5 03/04/17 15:30 04/03/17 15:29 Albuterol/ Ipratropium (Albuterol/ Ipratropium) 3 ml Q4H PRN HHN Shortness of Breath 03/04/17 15:30 03/09/17 15:29 03/06/17 13:46 Colistimethate Sodium (Colistin) 150 mg Q12HR IVP 03/06/17 11:30 03/13/17 11:29 03/06/17 11:00 Dextrose (Dextrose 50%) STAT PRN IV Hypoglycemia 03/04/17 15:30 04/03/17 15:29 Divalproex Sodium (Depakote Sprinkles) 250 mg Q12HR GT 03/04/17 21:00 04/03/17 20:59 03/06/17 08:50 Heparin Sodium (Porcine) (Heparin 5000 units/ml) 5,000 units EVERY 12 HOURS SUBQ 03/04/17 21:00 04/03/17 20:59 03/06/17 08:55 Insulin Aspart (NovoLOG) Q6HR SUBQ 03/05/17 00:00 04/03/17 20:59 03/06/17 12:00 Levetiracetam (Keppra) 500 mg Q12HR GT 03/04/17 21:00 04/03/17 20:59 03/06/17 08:50 Lorazepam (Ativan 2mg/ml 1ml) 2 mg Q2H PRN IV For Anxiety 03/04/17 15:30 03/11/17 15:29 Morphine Sulfate (Morphine Sulfate) 4 mg Q4H PRN IVP Severe Pain (Pain Scale 7-10) 03/04/17 15:30 03/11/17 15:29 Ondansetron HCl (Zofran) 4 mg Q6H PRN IVP Nausea & Vomiting 03/04/17 15:30 04/03/17 15:29 Pantoprazole (Protonix) 40 mg DAILY IV 03/05/17 09:00 04/04/17 08:59 03/06/17 08:50 Piperacillin Sod/ Tazobactam Sod 3.375 gm/Sodium Chloride 55 ml @ 13.75 mls/ hr Q8HR IVPB 03/04/17 22:00 03/11/17 21:59 03/06/17 13:30 Polyethylene Glycol (Miralax) 17 gm DAILYPRN PRN ORAL Constipation 03/04/17 15:30 04/03/17 15:29 Vancomycin HCl (Vanco rx to dose) 1 ea DAILY PRN MISC . 03/04/17 17:00 04/03/17 16:59 Vancomycin HCl/ Dextrose 250 ml @ 166.667 mls/hr Q24H IVPB 03/05/17 18:00 03/10/17 17:59 03/05/17 18:07 Corinna Honeycutt NP ([facility]) Mar 06, 2017 15:20
[2017-03-06] MEDS: Vancomycin 1250mg/D5W 250ml IVPB SCH (19:09)
--- NOTE | 2017-03-06 20:44 | General Progress Note ---
Assessment/Plan Problem List: (1) UTI (urinary tract infection) Assessment & Plan: 2/2 MDR Klebsiella ICD Codes: N39.0 - Urinary tract infection, site not specified SNOMED: 27832140 Qualifiers: Qualified Codes: T83.511A - Infection and inflammatory reaction due to indwelling urethral catheter, initial encounter; N39.0 - Urinary tract infection , site not specified (2) Aspiration pneumonia ICD Codes: J69.0 - Pneumonitis due to inhalation of food and vomit SNOMED: 674478244 (3) Acute toxic metabolic encephalopathy (4) Chronic respiratory failure Assessment & Plan: with hypoxia s/p tracheostomy ICD Codes: J96.10 - Chronic respiratory failure, unspecified whether with hypoxia or hypercapnia SNOMED: 01924186 (5) Paroxysmal A-fib ICD Codes: I48.0 - Paroxysmal atrial fibrillation SNOMED: 933454270 (6) Advanced dementia ICD Codes: F03.90 - Unspecified dementia without behavioral disturbance SNOMED: 58585518 (7) Functional quadriplegia ICD Codes: R53.2 - Functional quadriplegia SNOMED: 394251565449213 (8) Tracheostomy in place ICD Codes: Z93.0 - Tracheostomy status SNOMED: 751572317 (9) S/P percutaneous endoscopic gastrostomy (PEG) tube placement ICD Codes: Z93.1 - Gastrostomy status SNOMED: 065577519 (10) Anemia ICD Codes: D64.9 - Anemia, unspecified SNOMED: 911723958 Qualifiers: Qualified Codes: D64.9 - Anemia, unspecified (11) Gastritis ICD Codes: K29.70 - Gastritis, unspecified, without bleeding SNOMED: 3604337 (12) Seizure disorder ICD Codes: G40.909 - Epilepsy, unspecified, not intractable, without status epilepticus SNOMED: 037531650 (13) HTN (hypertension) ICD Codes: I10 - Essential (primary) hypertension SNOMED: 09334159 (14) Diabetes mellitus ICD Codes: E11.9 - Type 2 diabetes mellitus without complications SNOMED: 53606584 Qualifiers: Qualified Codes: E11.8 - Type 2 diabetes mellitus with unspecified complications (15) Pressure ulcer Assessment & Plan: #1 Right lateral 1st metatarsal head pressure ulcer with yellow scab adhered to wound bed #2 Right Heel unstageable pressure ulcer #3 Sacral unstageable pressure ulcer #4 Left heel DTI pressure ulcer ICD Codes: L89.90 - Pressure ulcer of unspecified site, unspecified stage SNOMED: 899314343 Status: stable Assessment/Plan Downgrade to med-surg floor Empiric vanco and zosyn (03/04-); polymixin added (03/06-) s/p levaquin, cefepime and amikacin in ED on 03/04 ID and pulm consulted, appreciate rec's s/p olvera exchange on 03/05/17 F/u cultures--urine cx w/ >100K GNR so far Cont O2 via trach PRN Duonebs PRN Trend CBC, BMP Cont SNF meds Supportive care Wound care DVT Prophylaxis: SCD, HSQ Code Status: Full Hospital Classification Declaration: Based on this initial evaluation, and depending on the patient's clinical course, I anticipate that this patient will require hospitalization for 2-3 days for UTI, AMS and close respiratory/ hemodynamic monitoring. Disposition: Once the patient is stable to leave the hospital, I anticipate the patient will likely be discharged to the following environment: back to SNF Discussed with patient/family, nursing staff, SW/CM, pulm, ID regarding clinical status, treatment course, and disposition planning. Time of note may not reflect time of encounter. Subjective Date patient seen: Mar 06, 2017 Time patient seen: 12:00 ROS Limited/Unobtainable: Yes Allergies: Coded Allergies: No Known Allergies (Unverified , 01/02/17) Subjective No acute o/n events HDS Urine cx shows >100K Klebisella w/ carbapenem resistance Olvera exchanged yesterday Pt bedbound and nonverbal at baseline ROS limited 2/2 dementia and pt nonverbal Objective Last 24 Hour Vital Signs Date Time Temp Pulse Resp B/P (MAP) Pulse Ox O2 Delivery O2 Flow Rate FiO2 03/06/17 19:30 87 20 T-piece 8.0 30 03/06/17 19:30 95 T-piece 8.0 30 03/06/17 19:30 T-piece 8.0 30 03/06/17 16:00 97 03/06/17 15:51 97.2 85 20 91/51 99 T-piece 10.0 03/06/17 13:56 89 20 98 T-piece 10.0 35 03/06/17 13:30 98 24 T-piece 10.0 35 03/06/17 13:30 98 24 93 T-piece 10.0 35 03/06/17 13:30 93 T-piece 10.0 35 03/06/17 13:30 T-piece 10.0 35 03/06/17 12:09 80 118/62 03/06/17 12:00 78 03/06/17 11:52 99/52 03/06/17 11:39 99.1 73 20 92/50 100 T-piece 10.0 03/06/17 08:38 98.2 79 20 127/70 100 T-piece 10.0 03/06/17 08:00 92 03/06/17 07:28 100 T-piece 10.0 35 03/06/17 07:28 T-piece 10.0 35 03/06/17 07:28 84 20 T-piece 10.0 35 03/06/17 04:56 97.2 82 21 107/69 98 Endotracheal Tube 03/06/17 04:00 82 03/06/17 01:30 T-piece 10.0 35 03/06/17 01:29 99 T-piece 10.0 35 03/06/17 00:41 98.4 79 24 135/70 95 Room Air 03/06/17 00:00 78 Intake and Output 03/06/17 03/07/17 19:00 07:00 Intake Total 27.50 ml Output Total 700 ml Balance -672.50 ml IV Total 27.50 ml Output Urine Total 700 ml # Bowel Movements 1 Laboratory Tests 03/06/17 06:00: White Blood Count 6.8, Red Blood Count 3.01L, Hemoglobin 8.9L, Hematocrit 27.4L , Mean Corpuscular Volume 91, Mean Corpuscular Hemoglobin 29.7, Mean Corpuscular Hemoglobin Concent 32.7, Red Cell Distribution Width 15.6H, Platelet Count 230, Mean Platelet Volume 7.6, Neutrophils (%) (Auto) , Lymphocytes (%) (Auto) , Monocytes (%) (Auto) , Eosinophils (%) (Auto) , Basophils (%) (Auto) , Differential Total Cells Counted 100, Neutrophils % ( Manual) 69, Lymphocytes % (Manual) 18L, Monocytes % (Manual) 10, Eosinophils % ( Manual) 3, Basophils % (Manual) 0, Band Neutrophils 0, Platelet Estimate Adequate, Platelet Morphology Normal, Red Blood Cell Morphology Normal, Erythrocyte Sedimentation Rate 125H, Reticulocyte Count 2.1H, Prothrombin Time 10.1, Prothromb Time International Ratio 1.0, Activated Partial Thromboplast Time 32, Iron Level 48L, Total Iron Binding Capacity 201L, Percent Iron Saturation 24, Unsaturated Iron Binding 153, Lactate Dehydrogenase 163, Vitamin B12 Level 1553H, Folate > 20.0H Height (Feet): 6 Height (Inches): 0.00 Weight (Pounds): 180 Objective General: eyes closed, nonverbal, unresponsive to voice and painful stimuli Head: normocephalic, without obvious abnormality, atraumatic Eyes: conjunctivae/corneas clear. PERRL, EOM's intact Throat: lips, mucosa, and tongue normal. MMM Neck: supple, symmetrical, trachea midline, and no JVD Lungs: +rhonchi b/l, decreased breath sounds on L side Heart: regular rate and rhythm, S1, S2 normal, no murmur, click, rub or gallop Abdomen: soft, non-tender, non-distended, bowel sounds normal; no masses or organomegaly Extremities: extremities normal, atraumatic, no cyanosis or edema Pulses: 2+ and symmetric Skin: skin color, texture, turgor normal; no rashes or lesions Neurologic: unable to assess Travis Hinojosa M.D. Mar 06, 2017 20:44
[2017-03-07] VITALS (8 sets, daily range): BP systolic 114–132; BP diastolic 58–78
[2017-03-07] MEDS: NovoLOG Insulin Flexpen SUBQ SCH ×4 (00:23→17:58)
[2017-03-07] MEDS ORDERED: LORazepam Inj 2mg/ml 1ml IV PRN (01:30)
[2017-03-07] MEDS ORDERED: Morphine Sulfate 4mg/ml Inj IVP PRN (03:30)
[2017-03-07] MEDS ORDERED: Albuterol/Ipratropium 3ml neb HHN PRN (03:30)
[2017-03-07] MEDS ORDERED: Piperacillin/Tazobactam 3.375 GM in NS 55 ML IVPB SCH (06:00)
[2017-03-07 07:41] LABS: ANION GAP 3 mmol/L (5-15); CALCIUM 9.1 MG/DL (8.5-10.1); CARBON DIOXIDE 34 MMOL/L (21-32); CHLORIDE 102 MMOL/L (98-107); CREATININE 0.8 MG/DL (0.55-1.30); SODIUM 139 MMOL/L (136-145)
[2017-03-07 07:50] LABS: BASOPHILS % (AUTO) 0.9 % (0.0-2.0); EOSINOPHILS % (AUTO) 3.2 % (0.0-3.0); LYMPHOCYTES % (AUTO) 28.3 % (20.0-45.0); MEAN CORPUSCULAR HEMOGLOBIN 29.5 PG (27.0-31.0); MEAN CORPUSCULAR HGB CONC 32.6 G/DL (32.0-36.0); MEAN CORPUSCULAR VOLUME 91 FL (80-99); MEAN PLATELET VOLUME 7.4 FL (6.5-10.1); MONOCYTES % (AUTO) 14.2 % (1.0-10.0); NEUTROPHILS % (AUTO) 53.4 % (45.0-75.0); PLATELET COUNT 235 K/UL (150-450); RED BLOOD COUNT 2.96 M/UL (4.70-6.10); RED CELL DISTRIBUTION WIDTH 15.8 % (11.6-14.8)
[2017-03-07] MEDS: Colistin 150mg vial IVP SCH ×2 (08:45→22:09)
[2017-03-07] MEDS: Depakote 125mg Sprinkles GT SCH ×2 (08:45→21:59)
[2017-03-07] MEDS: levETIRAcetam 500mg/5ml Liquid GT SCH ×2 (08:46→21:59)
[2017-03-07] MEDS: Pantoprazole Inj IV SCH (08:46)
[2017-03-07] MEDS: Heparin 5000 units/ml inj SUBQ SCH ×2 (08:47→22:00)
--- NOTE | 2017-03-07 11:39 | Infectious Diseases Prog Note ---
Assessment/Plan Assessment/Plan A) 1) KPC/Klebsiella uti, pseudomonas pna/gram neg pna, proteus/strep/staph aureus/gram neg sacral wound infection 2) chronic olvera 3) trach, no vent 4) sz, dm, htn, anemia, arrhythmia, af, dementia, qp, cva, weakness, dysphagia, g-tube 5) allergies - negative, fh-nc, sh-negative, mar noted, notes and records noted 6) d/w RN P) 1) vancomycin, polymyxin, flagyl, cefepime x one week 2) check culture, labs and chest x-ray 3) wound care per protocol 4) continue treatment per primary and consultants 5) orders entered and noted Subjective Constitutional: Denies: fever HEENT: Reports: congestion - mild Respiratory: Denies: shortness of breath Cardiovascular: Reports: other - no pressors, Denies: chest pain Gastrointestinal/Abdominal: Denies: nausea, vomiting, diarrhea Genitourinary: Reports: other - + olvera Neurologic: Reports: weakness Skin: Reports: other - wounds covered , Denies: rash Hematologic: Denies: bleeding Musculoskeletal: Denies: pain Allergies: Coded Allergies: No Known Allergies (Unverified , 01/02/17) Objective Vital Signs Last 24 Hour Vital Signs Date Time Temp Pulse Resp B/P (MAP) Pulse Ox O2 Delivery O2 Flow Rate FiO2 03/07/17 08:00 97.2 73 21 132/66 98 Trach Collar 03/07/17 07:33 98 T-piece 8.0 30 03/07/17 07:33 T-piece 8.0 30 03/07/17 07:32 71 20 T-piece 8.0 30 03/07/17 04:00 99.0 72 18 118/59 100 T-piece 03/07/17 01:30 T-piece 8.0 30 03/07/17 01:30 96 T-piece 8.0 30 03/07/17 00:10 98.2 75 20 128/72 94 Room Air 03/07/17 00:00 98.2 72 20 117/78 98 Room Air 03/06/17 20:00 98.2 76 22 115/59 99 Endotracheal Tube 03/06/17 20:00 76 03/06/17 20:00 97.2 85 20 91/51 95 T-piece 8.0 30 03/06/17 19:30 87 20 T-piece 8.0 30 03/06/17 19:30 95 T-piece 8.0 30 03/06/17 19:30 T-piece 8.0 30 03/06/17 16:00 97 03/06/17 15:51 97.2 85 20 91/51 99 T-piece 10.0 03/06/17 13:56 89 20 98 T-piece 10.0 35 03/06/17 13:30 98 24 T-piece 10.0 35 03/06/17 13:30 98 24 93 T-piece 10.0 35 03/06/17 13:30 93 T-piece 10.0 35 03/06/17 13:30 T-piece 10.0 35 03/06/17 12:09 80 118/62 03/06/17 12:00 78 03/06/17 11:52 99/52 03/06/17 11:39 99.1 73 20 92/50 100 T-piece 10.0 Height (Feet): 6 Height (Inches): 0.00 Weight (Pounds): 180 General Appearance: no acute distress HEENT: normocephalic, atraumatic, anicteric, mucous membranes moist, supple, no JVD, status post trach Respiratory/Chest: crackles/rales, rhonchi - bilaterally Cardiovascular: normal rate, regular rhythm, no gallop/murmur, no JVD Abdomen: normal bowel sounds, soft, non tender, no organomegaly, non distended Genitourinary: other - + olvera - urine cloudy Extremities: no cyanosis Skin: no rash, other - wound/ulcer covered 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 There is also decreased atelectasis at the left lung base. Tracheostomy remains. Impression: Preparation with improved bibasilar atelectasis. Microbiology Date/Time Source Procedure Growth Status 03/05/17 05:50 Sputum Gram Stain - Final Resulted 03/05/17 05:50 Sputum Culture - Preliminary Pseudomonas Aeruginosa Gram Negative Bacillus 2 Resulted 03/04/17 15:00 Nasal Nares MRSA Culture - Final NO METHICILLIN RESISTANT STAPH AUREUS... Complete 03/04/17 17:00 Stool Clostridium difficile Toxin Assay - Final Complete 03/04/17 12:30 Urine,Clean Catch Urine Culture - Final K.pneumoniae Carbapenem Resist Complete 03/04/17 19:00 Sacral Wound Gram Stain - Final Resulted 03/04/17 19:00 Wound Culture - Preliminary Proteus Mirabilis Staphylococcus Aureus Strep Species, Gamma-Hemolytic Resulted Laboratory Tests Test 03/07/17 05:50 White Blood Count 7.0 K/UL (4.8-10.8) Red Blood Count 2.96 M/UL (4.70-6.10) L Hemoglobin 8.7 G/DL (14.2-18.0) L Hematocrit 26.8 % (42.0-52.0) L Mean Corpuscular Volume 91 FL (80-99) Mean Corpuscular Hemoglobin 29.5 PG (27.0-31.0) Mean Corpuscular Hemoglobin Concent 32.6 G/DL (32.0-36.0) Red Cell Distribution Width 15.8 % (11.6-14.8) H Platelet Count 235 K/UL (150-450) Mean Platelet Volume 7.4 FL (6.5-10.1) Neutrophils (%) (Auto) 53.4 % (45.0-75.0) Lymphocytes (%) (Auto) 28.3 % (20.0-45.0) Monocytes (%) (Auto) 14.2 % (1.0-10.0) H Eosinophils (%) (Auto) 3.2 % (0.0-3.0) H Basophils (%) (Auto) 0.9 % (0.0-2.0) Sodium Level 139 MMOL/L (136-145) Potassium Level 4.0 MMOL/L (3.5-5.1) Chloride Level 102 MMOL/L (98-107) Carbon Dioxide Level 34 MMOL/L (21-32) H Anion Gap 3 mmol/L (5-15) L Blood Urea Nitrogen 9 mg/dL (7-18) Creatinine 0.8 MG/DL (0.55-1.30) Estimat Glomerular Filtration Rate mL/min (>60) Glucose Level 132 MG/DL (74-106) H Calcium Level 9.1 MG/DL (8.5-10.1) Current Medications Medications (Trade) Dose Ordered Sig/Dorie Route PRN Reason Start Time Stop Time Status Last Admin Dose Admin Acetaminophen (Tylenol) 650 mg Q4H PRN ORAL T>100.5 03/07/17 03:30 04/03/17 15:29 Albuterol/ Ipratropium (Albuterol/ Ipratropium) 3 ml Q4H PRN HHN Shortness of Breath 03/07/17 03:30 03/09/17 15:29 Cefepime HCl 2 gm/ Dextrose 100 ml @ 200 mls/hr Q12HR IVPB 03/07/17 21:00 03/14/17 20:59 Colistimethate Sodium (Colistin) 150 mg Q12HR IVP 03/07/17 09:00 03/13/17 11:29 03/07/17 08:45 Dextrose (Dextrose 50%) STAT PRN IV Hypoglycemia 03/07/17 15:30 04/03/17 15:29 Divalproex Sodium (Depakote Sprinkles) 250 mg Q12HR GT 03/07/17 09:00 04/03/17 20:59 03/07/17 08:45 Heparin Sodium (Porcine) (Heparin 5000 units/ml) 5,000 units EVERY 12 HOURS SUBQ 03/07/17 09:00 04/03/17 20:59 03/07/17 08:47 Insulin Aspart (NovoLOG) Q6HR SUBQ 03/07/17 00:00 04/03/17 20:59 03/07/17 05:48 Levetiracetam (Keppra) 500 mg Q12HR GT 03/07/17 09:00 04/03/17 20:59 03/07/17 08:46 Lorazepam (Ativan 2mg/ml 1ml) 2 mg Q2H PRN IV For Anxiety 03/07/17 01:30 03/11/17 15:29 Metronidazole (Flagyl) 500 mg EVERY 8 HOURS ORAL 03/07/17 14:00 03/14/17 13:59 Morphine Sulfate (Morphine Sulfate) 4 mg Q4H PRN IVP Severe Pain (Pain Scale 7-10) 03/07/17 03:30 03/11/17 15:29 Ondansetron HCl (Zofran) 4 mg Q6H PRN IVP Nausea & Vomiting 03/07/17 03:30 04/03/17 15:29 Pantoprazole (Protonix) 40 mg DAILY IV 03/07/17 09:00 04/04/17 08:59 03/07/17 08:46 Polyethylene Glycol (Miralax) 17 gm DAILYPRN PRN ORAL Constipation 03/07/17 15:30 04/03/17 15:29 Vancomycin HCl (Vanco rx to dose) 1 ea DAILY PRN MISC . 03/07/17 09:00 04/03/17 16:59 Vancomycin HCl/ Dextrose 250 ml @ 166.667 mls/hr Q24H IVPB 03/07/17 18:00 03/10/17 17:59 JENNIFER BEVERLY Mar 07, 2017 11:39
--- NOTE | 2017-03-07 12:16 | General Progress Note ---
Assessment/Plan Problem List: (1) UTI (urinary tract infection) Assessment & Plan: 2/2 MDR Klebsiella ICD Codes: N39.0 - Urinary tract infection, site not specified SNOMED: 10222658 Qualifiers: Qualified Codes: T83.511A - Infection and inflammatory reaction due to indwelling urethral catheter, initial encounter; N39.0 - Urinary tract infection , site not specified (2) Aspiration pneumonia ICD Codes: J69.0 - Pneumonitis due to inhalation of food and vomit SNOMED: 881724679 (3) Acute toxic metabolic encephalopathy (4) Chronic respiratory failure Assessment & Plan: with hypoxia s/p tracheostomy ICD Codes: J96.10 - Chronic respiratory failure, unspecified whether with hypoxia or hypercapnia SNOMED: 56540887 (5) Paroxysmal A-fib ICD Codes: I48.0 - Paroxysmal atrial fibrillation SNOMED: 662351006 (6) Advanced dementia ICD Codes: F03.90 - Unspecified dementia without behavioral disturbance SNOMED: 32118965 (7) Functional quadriplegia ICD Codes: R53.2 - Functional quadriplegia SNOMED: 746305601754574 (8) Tracheostomy in place ICD Codes: Z93.0 - Tracheostomy status SNOMED: 106372234 (9) S/P percutaneous endoscopic gastrostomy (PEG) tube placement ICD Codes: Z93.1 - Gastrostomy status SNOMED: 934359484 (10) Anemia ICD Codes: D64.9 - Anemia, unspecified SNOMED: 010023822 Qualifiers: Qualified Codes: D64.9 - Anemia, unspecified (11) Gastritis ICD Codes: K29.70 - Gastritis, unspecified, without bleeding SNOMED: 4867125 (12) Seizure disorder ICD Codes: G40.909 - Epilepsy, unspecified, not intractable, without status epilepticus SNOMED: 916529806 (13) HTN (hypertension) ICD Codes: I10 - Essential (primary) hypertension SNOMED: 34091637 (14) Diabetes mellitus ICD Codes: E11.9 - Type 2 diabetes mellitus without complications SNOMED: 30848160 Qualifiers: Qualified Codes: E11.8 - Type 2 diabetes mellitus with unspecified complications (15) Pressure ulcer Assessment & Plan: #1 Right lateral 1st metatarsal head pressure ulcer with yellow scab adhered to wound bed #2 Right Heel unstageable pressure ulcer #3 Sacral unstageable pressure ulcer #4 Left heel DTI pressure ulcer ICD Codes: L89.90 - Pressure ulcer of unspecified site, unspecified stage SNOMED: 279765875 Status: stable Assessment/Plan Empiric vanco and zosyn (03/04-); polymixin added (03/06-) s/p levaquin, cefepime and amikacin in ED on 03/04 ID and pulm consulted, appreciate rec's s/p olvera exchange on 03/05/17 F/u cultures--urine cx w/ >100K Klebseilla w/ carbapenem resistance Cont O2 via trach PRN Duonebs PRN Trend CBC, BMP Cont SNF meds Supportive care Wound care DVT Prophylaxis: SCD, HSQ Code Status: Full Hospital Classification Declaration: Based on this initial evaluation, and depending on the patient's clinical course, I anticipate that this patient will require hospitalization for 2-3 days for UTI, AMS and close respiratory/ hemodynamic monitoring. Disposition: Once the patient is stable to leave the hospital, I anticipate the patient will likely be discharged to the following environment: back to SNF Discussed with patient/family, nursing staff, SW/CM, pulm, ID regarding clinical status, treatment course, and disposition planning. Time of note may not reflect time of encounter. Subjective Date patient seen: Mar 07, 2017 Time patient seen: 12:15 ROS Limited/Unobtainable: Yes Allergies: Coded Allergies: No Known Allergies (Unverified , 01/02/17) Subjective No acute o/n events HDS Urine cx shows >100K Klebisella w/ carbapenem resistance Olvera exchanged on 03/06/17 Pt bedbound and nonverbal at baseline Unable to obtain ROS 2/2 dementia and pt nonverbal Objective Last 24 Hour Vital Signs Date Time Temp Pulse Resp B/P (MAP) Pulse Ox O2 Delivery O2 Flow Rate FiO2 03/07/17 08:00 97.2 73 21 132/66 98 Trach Collar 03/07/17 07:33 98 T-piece 8.0 30 03/07/17 07:33 T-piece 8.0 30 03/07/17 07:32 71 20 T-piece 8.0 30 03/07/17 04:00 99.0 72 18 118/59 100 T-piece 03/07/17 01:30 T-piece 8.0 30 03/07/17 01:30 96 T-piece 8.0 30 03/07/17 00:10 98.2 75 20 128/72 94 Room Air 03/07/17 00:00 98.2 72 20 117/78 98 Room Air 03/06/17 20:00 98.2 76 22 115/59 99 Endotracheal Tube 03/06/17 20:00 76 03/06/17 20:00 97.2 85 20 91/51 95 T-piece 8.0 30 03/06/17 19:30 87 20 T-piece 8.0 30 03/06/17 19:30 95 T-piece 8.0 30 03/06/17 19:30 T-piece 8.0 30 03/06/17 16:00 97 03/06/17 15:51 97.2 85 20 91/51 99 T-piece 10.0 03/06/17 13:56 89 20 98 T-piece 10.0 35 03/06/17 13:30 98 24 T-piece 10.0 35 03/06/17 13:30 98 24 93 T-piece 10.0 35 03/06/17 13:30 93 T-piece 10.0 35 03/06/17 13:30 T-piece 10.0 35 Laboratory Tests 03/07/17 05:50: White Blood Count 7.0, Red Blood Count 2.96L, Hemoglobin 8.7L, Hematocrit 26.8L , Mean Corpuscular Volume 91, Mean Corpuscular Hemoglobin 29.5, Mean Corpuscular Hemoglobin Concent 32.6, Red Cell Distribution Width 15.8H, Platelet Count 235, Mean Platelet Volume 7.4, Neutrophils (%) (Auto) 53.4, Lymphocytes (%) (Auto) 28.3, Monocytes (%) (Auto) 14.2H, Eosinophils (%) (Auto) 3.2H, Basophils (%) (Auto) 0.9, Sodium Level 139, Potassium Level 4.0, Chloride Level 102, Carbon Dioxide Level 34H, Anion Gap 3L, Blood Urea Nitrogen 9, Creatinine 0.8, Estimat Glomerular Filtration Rate , Glucose Level 132H, Calcium Level 9.1 Height (Feet): 6 Height (Inches): 0.00 Weight (Pounds): 180 Objective General: eyes closed, nonverbal, unresponsive to voice and painful stimuli Head: normocephalic, without obvious abnormality, atraumatic Eyes: conjunctivae/corneas clear. PERRL, EOM's intact Throat: lips, mucosa, and tongue normal. MMM Neck: supple, symmetrical, trachea midline, and no JVD Lungs: +rhonchi b/l, decreased breath sounds on L side Heart: regular rate and rhythm, S1, S2 normal, no murmur, click, rub or gallop Abdomen: soft, non-tender, non-distended, bowel sounds normal; no masses or organomegaly Extremities: extremities normal, atraumatic, no cyanosis or edema Pulses: 2+ and symmetric Skin: skin color, texture, turgor normal; no rashes or lesions Neurologic: unable to assess Travis Hinojosa M.D. Mar 07, 2017 12:15
--- NOTE | 2017-03-07 13:28 | Pulmonology Progress Note ---
Assessment/Plan Assessment/Plan ASSESSMENT UTI with KPC likely aspiration PNA with Pseudomonas possible HCAP Chronic respiratory failure with tracheostomy status dysphagia, G tube Anemia DM seizure disorder R heel decub ulcer un-stageable , POA sacral decub POA, un-stageable PLAN OF CARE MS floor Abx ID follows sputum cx + Pseudomonas , GNB urine cx + KPC, stool C dif negative trach care titrate FiO2 to keep sat above 02% Pulmonary toilet 03/06 CXR with improved bibasilar atelectasis. CXR in am strict aspiration precautions, GT feeding, monitor tolerance Venous Duplex BLE negative BS management with SS of insulin DVT GI prophylaxis seizure precautions continue Depakote and Keppra bowel regimen wound care as per wound nurse recommendations dc plan as per pMD case discussed and evaluated by supervising physician Subjective Allergies: Coded Allergies: No Known Allergies (Unverified , 01/02/17) Subjective no leukocytosis, low grade fever this am no signs of respiratory distress on current FiO2 Objective Last 24 Hour Vital Signs Date Time Temp Pulse Resp B/P (MAP) Pulse Ox O2 Delivery O2 Flow Rate FiO2 03/07/17 12:46 98 T-piece 8.0 30 03/07/17 12:46 T-piece 8.0 30 03/07/17 12:00 97.9 70 21 114/58 100 Trach Collar 8.0 03/07/17 08:00 97.2 73 21 132/66 98 Trach Collar 03/07/17 07:33 98 T-piece 8.0 30 03/07/17 07:33 T-piece 8.0 30 03/07/17 07:32 71 20 T-piece 8.0 30 03/07/17 04:00 99.0 72 18 118/59 100 T-piece 03/07/17 01:30 T-piece 8.0 30 03/07/17 01:30 96 T-piece 8.0 30 03/07/17 00:10 98.2 75 20 128/72 94 Room Air 03/07/17 00:00 98.2 72 20 117/78 98 Room Air 03/06/17 20:00 98.2 76 22 115/59 99 Endotracheal Tube 03/06/17 20:00 76 03/06/17 20:00 97.2 85 20 91/51 95 T-piece 8.0 30 03/06/17 19:30 87 20 T-piece 8.0 30 03/06/17 19:30 95 T-piece 8.0 30 03/06/17 19:30 T-piece 8.0 30 03/06/17 16:00 97 03/06/17 15:51 97.2 85 20 91/51 99 T-piece 10.0 03/06/17 13:56 89 20 98 T-piece 10.0 35 03/06/17 13:30 98 24 T-piece 10.0 35 03/06/17 13:30 98 24 93 T-piece 10.0 35 03/06/17 13:30 93 T-piece 10.0 35 03/06/17 13:30 T-piece 10.0 35 Objective General Appearance: no acute distress, bedridden chronically ill looking elderly male with trach, FiO2 30% HEENT: normocephalic, atraumatic, anicteric, status post trach with large, white and thick secretions Respiratory/Chest: rhonchi - scattered Cardiovascular: normal peripheral pulses, normal rate Abdomen: normal bowel sounds, soft, non tender, G tube Extremities: no edema Neurologic/Psychiatric: abnormal gait, bedridden , awake, poorly but responsive Musculoskeletal: atrophy - BLE Microbiology Date/Time Source Procedure Growth Status 03/05/17 05:50 Sputum Gram Stain - Final Resulted 03/05/17 05:50 Sputum Culture - Preliminary Pseudomonas Aeruginosa Gram Negative Bacillus 2 Resulted 03/04/17 15:00 Nasal Nares MRSA Culture - Final NO METHICILLIN RESISTANT STAPH AUREUS... Complete 03/04/17 17:00 Stool Clostridium difficile Toxin Assay - Final Complete 03/04/17 19:00 Sacral Wound Gram Stain - Final Resulted 03/04/17 19:00 Wound Culture - Preliminary Proteus Mirabilis Staphylococcus Aureus Strep Species, Gamma-Hemolytic Resulted Laboratory Tests 03/07/17 05:50: White Blood Count 7.0, Red Blood Count 2.96L, Hemoglobin 8.7L, Hematocrit 26.8L , Mean Corpuscular Volume 91, Mean Corpuscular Hemoglobin 29.5, Mean Corpuscular Hemoglobin Concent 32.6, Red Cell Distribution Width 15.8H, Platelet Count 235, Mean Platelet Volume 7.4, Neutrophils (%) (Auto) 53.4, Lymphocytes (%) (Auto) 28.3, Monocytes (%) (Auto) 14.2H, Eosinophils (%) (Auto) 3.2H, Basophils (%) (Auto) 0.9, Sodium Level 139, Potassium Level 4.0, Chloride Level 102, Carbon Dioxide Level 34H, Anion Gap 3L, Blood Urea Nitrogen 9, Creatinine 0.8, Estimat Glomerular Filtration Rate , Glucose Level 132H, Calcium Level 9.1 Current Medications Medications (Trade) Dose Ordered Sig/Dorie Route PRN Reason Start Time Stop Time Status Last Admin Dose Admin Acetaminophen (Tylenol) 650 mg Q4H PRN ORAL T>100.5 03/07/17 03:30 04/03/17 15:29 Albuterol/ Ipratropium (Albuterol/ Ipratropium) 3 ml Q4H PRN HHN Shortness of Breath 03/07/17 03:30 03/09/17 15:29 Cefepime HCl 2 gm/ Dextrose 100 ml @ 200 mls/hr Q12HR IVPB 03/07/17 21:00 03/14/17 20:59 Colistimethate Sodium (Colistin) 150 mg Q12HR IVP 03/07/17 09:00 03/13/17 11:29 03/07/17 08:45 Dextrose (Dextrose 50%) STAT PRN IV Hypoglycemia 03/07/17 15:30 04/03/17 15:29 Divalproex Sodium (Depakote Sprinkles) 250 mg Q12HR GT 03/07/17 09:00 04/03/17 20:59 03/07/17 08:45 Heparin Sodium (Porcine) (Heparin 5000 units/ml) 5,000 units EVERY 12 HOURS SUBQ 03/07/17 09:00 04/03/17 20:59 03/07/17 08:47 Insulin Aspart (NovoLOG) Q6HR SUBQ 03/07/17 00:00 04/03/17 20:59 03/07/17 12:30 Levetiracetam (Keppra) 500 mg Q12HR GT 03/07/17 09:00 04/03/17 20:59 03/07/17 08:46 Lorazepam (Ativan 2mg/ml 1ml) 2 mg Q2H PRN IV For Anxiety 03/07/17 01:30 03/11/17 15:29 Metronidazole (Flagyl) 500 mg EVERY 8 HOURS ORAL 03/07/17 14:00 03/14/17 13:59 Morphine Sulfate (Morphine Sulfate) 4 mg Q4H PRN IVP Severe Pain (Pain Scale 7-10) 03/07/17 03:30 03/11/17 15:29 Ondansetron HCl (Zofran) 4 mg Q6H PRN IVP Nausea & Vomiting 03/07/17 03:30 04/03/17 15:29 Pantoprazole (Protonix) 40 mg DAILY IV 03/07/17 09:00 04/04/17 08:59 03/07/17 08:46 Polyethylene Glycol (Miralax) 17 gm DAILYPRN PRN ORAL Constipation 03/07/17 15:30 04/03/17 15:29 Vancomycin HCl (Vanco rx to dose) 1 ea DAILY PRN MISC . 03/07/17 09:00 04/03/17 16:59 Vancomycin HCl/ Dextrose 250 ml @ 166.667 mls/hr Q24H IVPB 03/07/17 18:00 03/10/17 17:59 Corinna Honeycutt NP ([facility]) Mar 07, 2017 13:28
[2017-03-07] MEDS ORDERED: metroNIDAZOLE 500mg tab ORAL SCH (14:00)
[2017-03-07] MEDS ORDERED: Miralax 17gm pkt ORAL PRN (15:30)
[2017-03-07] MEDS ORDERED: Vancomycin 1250mg/D5W 250ml 250 ML IVPB SCH (18:00)
[2017-03-07] MEDS ORDERED: Miralax 17gm pkt GT PRN (18:15)
[2017-03-07] MEDS: metroNIDAZOLE 500mg tab GT SCH (21:58)
[2017-03-08] MEDS: NovoLOG Insulin Flexpen SUBQ SCH ×5 (01:01→21:28)
[2017-03-08 04:00] VITALS: BP 129/67
[2017-03-08] MEDS: metroNIDAZOLE 500mg tab GT SCH ×3 (05:59→21:25)
[2017-03-08 06:35] LABS: LYMPHOCYTES % (AUTO) 21.8 % (20.0-45.0); MEAN CORPUSCULAR HEMOGLOBIN 30.4 PG (27.0-31.0); MEAN CORPUSCULAR HGB CONC 33.6 G/DL (32.0-36.0); MEAN CORPUSCULAR VOLUME 91 FL (80-99); MEAN PLATELET VOLUME 6.7 FL (6.5-10.1); MONOCYTES % (AUTO) 17.5 % (1.0-10.0); NEUTROPHILS % (AUTO) 56.8 % (45.0-75.0); PLATELET COUNT 270 K/UL (150-450); RED BLOOD COUNT 3.36 M/UL (4.70-6.10); RED CELL DISTRIBUTION WIDTH 15.6 % (11.6-14.8); WHITE BLOOD COUNT 7.4 K/UL (4.8-10.8)
[2017-03-08 07:34] LABS: ANION GAP 2 mmol/L (5-15); CALCIUM 9.5 MG/DL (8.5-10.1); CARBON DIOXIDE 33 MMOL/L (21-32); CHLORIDE 101 MMOL/L (98-107); CREATININE 0.8 MG/DL (0.55-1.30); POTASSIUM 4.1 MMOL/L (3.5-5.1); SODIUM 136 MMOL/L (136-145)
[2017-03-08 08:00] VITALS: BP 138/69
[2017-03-08] MEDS: Depakote 125mg Sprinkles GT SCH ×2 (08:19→21:24)
[2017-03-08] MEDS: Pantoprazole Inj IV SCH (08:19)
[2017-03-08] MEDS: levETIRAcetam 500mg/5ml Liquid GT SCH ×2 (08:19→21:25)
[2017-03-08] MEDS: Heparin 5000 units/ml inj SUBQ SCH ×2 (08:21→21:29)
[2017-03-08 09:19] LABS: OTHERS PATHOLOGIST COMMENT
[2017-03-08] MEDS: Colistin 150mg vial IVP SCH ×2 (09:37→21:25)
[2017-03-08] MEDS: Vancomycin 750mg/NS 250ml IVPB SCH ×2 (09:37→21:26)
[2017-03-08 12:00] VITALS: BP 124/67
--- NOTE | 2017-03-08 13:21 | Diagnostic Imaging Report ---
Indication: Shortness of breath Technique: One view of the chest Comparison: 03/06/2017 Findings: There is some atelectasis at the right lung base. This is increased from the previous study. Somewhat unusual lucency at the left lung base has been evident on multiple prior radiographs dating back to December, probably just lung outlined by curvilinear scar. There is questionably increased opacity in the left perihilar region. There is increased retrocardiac opacity increased pleural fluid Normal heart size. Tracheostomy again demonstrated is a gastrostomy Impression: Increased retrocardiac consolidation and left pleural fluid, over 2 days Slightly increased right basilar atelectasis. Possibly increased left perihilar congestion Other stable findings as described
--- NOTE | 2017-03-08 13:25 | Diagnostic Imaging Report ---
Indication: Pain Technique: Multiple views of the sacrum and coccyx Comparison: None Findings: A lucency overlies most of the distal coccyx. This probably represents a soft tissue ulcer. A Crump catheter is in place There is ossific density anteriorly which may represent a detached fourth coccygeal fragment, but also could represent some soft tissue calcification/ossification. The sacroiliac joint spaces are preserved. The sacrum appears grossly unremarkable. Impression: The coccyx is not well demonstrated, but destructive change of the second and third coccygeal segments is quite possible based on the available findings. There does appear to be associated soft tissue ulcer. Further evaluation with CT or MRI should be considered
[2017-03-08 16:00] VITALS: BP 127/69
--- NOTE | 2017-03-08 16:34 | Infectious Diseases Prog Note ---
Assessment/Plan Assessment/Plan A) 1) KPC/Klebsiella uti, pseudomonas pna/providencia pna, proteus/strep/staph aureus/enterococcus sacral wound infection 2) chronic olvera 3) trach, no vent 4) sz, dm, htn, anemia, arrhythmia, af, dementia, qp, cva, weakness, dysphagia, g-tube 5) allergies - negative, fh-nc, sh-negative, mar noted, notes and records noted 6) d/w RN P) 1) vancomycin, polymyxin, cefepime and flagyl x 6 days 2) check labs and chest x-ray 3) wound care per protocol 4) continue treatment per primary and consultants 5) orders entered and noted Subjective Constitutional: Denies: fever HEENT: Denies: congestion Respiratory: Denies: shortness of breath Cardiovascular: Reports: other - no pressors, Denies: chest pain Gastrointestinal/Abdominal: Denies: nausea, vomiting, diarrhea Genitourinary: Reports: other - + olvera Neurologic: Denies: headache Psychiatric: Denies: depression Skin: Denies: rash Hematologic: Denies: bleeding Musculoskeletal: Denies: pain Allergies: Coded Allergies: No Known Allergies (Unverified , 01/02/17) Objective Vital Signs Last 24 Hour Vital Signs Date Time Temp Pulse Resp B/P (MAP) Pulse Ox O2 Delivery O2 Flow Rate FiO2 03/08/17 16:00 97.8 60 20 127/69 99 Trach Collar 6.0 03/08/17 13:12 T-piece 8.0 30 03/08/17 13:12 99 T-piece 6.0 30 03/08/17 12:00 98.0 79 20 124/67 99 Trach Collar 6.0 03/08/17 08:00 97.0 65 22 138/69 99 Trach Collar 6.0 03/08/17 08:00 99 T-piece 6.0 30 03/08/17 08:00 T-piece 8.0 30 03/08/17 08:00 90 20 T-piece 6.0 30 03/08/17 04:00 97.3 68 20 129/67 100 Room Air 03/08/17 01:32 99 T-piece 8.0 30 03/08/17 01:32 T-piece 8.0 30 03/07/17 23:58 98.1 65 18 127/67 99 Trach Collar 03/07/17 20:26 T-piece 8.0 30 03/07/17 20:26 66 20 T-piece 8.0 30 03/07/17 20:26 99 T-piece 8.0 30 03/07/17 20:06 98.1 66 20 132/73 68 Trach Collar Height (Feet): 6 Height (Inches): 0.00 Weight (Pounds): 180 General Appearance: no acute distress HEENT: normocephalic, atraumatic, anicteric, mucous membranes moist, EOMI, pharynx normal, supple, no JVD Respiratory/Chest: crackles/rales, rhonchi - bilaterally Cardiovascular: normal rate, regular rhythm, no gallop/murmur, no JVD Abdomen: normal bowel sounds, soft, non tender, no organomegaly, non distended Genitourinary: other Extremities: no cyanosis Skin: no rash Neurologic/Psychiatric: no motor/sensory deficits, motor weakness, other - lethargic and generalized weakness Lymphatic: no neck adenopathy Musculoskeletal: no effusion Objective 03/05 - chest x-ray Impression: New finding of left-sided pleural effusion Retrocardiac atelectasis and consolidation, new since previous study of 2016 Right basilar atelectasis, improved since 07/04/1703/06 - chest x-ray - Comparison: 03/04/2017 Findings: Slightly improved inspiration, with slightly decreased right basilar atelectasis. There is also decreased atelectasis at the left lung base. Tracheostomy remains. Impression: Preparation with improved bibasilar atelectasis. Laboratory Tests Test 03/07/17 17:27 03/08/17 04:40 Vancomycin Level Trough 8.9 ug/mL (5.0-12.0) White Blood Count 7.4 K/UL (4.8-10.8) Red Blood Count 3.36 M/UL (4.70-6.10) L Hemoglobin 10.2 G/DL (14.2-18.0) L Hematocrit 30.4 % (42.0-52.0) L Mean Corpuscular Volume 91 FL (80-99) Mean Corpuscular Hemoglobin 30.4 PG (27.0-31.0) Mean Corpuscular Hemoglobin Concent 33.6 G/DL (32.0-36.0) Red Cell Distribution Width 15.6 % (11.6-14.8) H Platelet Count 270 K/UL (150-450) Mean Platelet Volume 6.7 FL (6.5-10.1) Neutrophils (%) (Auto) 56.8 % (45.0-75.0) Lymphocytes (%) (Auto) 21.8 % (20.0-45.0) Monocytes (%) (Auto) 17.5 % (1.0-10.0) H Eosinophils (%) (Auto) 3.0 % (0.0-3.0) Basophils (%) (Auto) 1.0 % (0.0-2.0) Sodium Level 136 MMOL/L (136-145) Potassium Level 4.1 MMOL/L (3.5-5.1) Chloride Level 101 MMOL/L (98-107) Carbon Dioxide Level 33 MMOL/L (21-32) H Anion Gap 2 mmol/L (5-15) L Blood Urea Nitrogen 9 mg/dL (7-18) Creatinine 0.8 MG/DL (0.55-1.30) Estimat Glomerular Filtration Rate mL/min (>60) Glucose Level 143 MG/DL (74-106) H Calcium Level 9.5 MG/DL (8.5-10.1) Current Medications Medications (Trade) Dose Ordered Sig/Dorie Route PRN Reason Start Time Stop Time Status Last Admin Dose Admin Acetaminophen (Tylenol) 650 mg Q4H PRN ORAL T>100.5 03/07/17 03:30 04/03/17 15:29 Albuterol/ Ipratropium (Albuterol/ Ipratropium) 3 ml Q4H PRN HHN Shortness of Breath 03/07/17 03:30 03/09/17 15:29 Cefepime HCl 2 gm/ Dextrose 55 ml @ 110 mls/hr EVERY 12 HOURS IVPB 03/08/17 21:00 03/15/17 20:59 Colistimethate Sodium (Colistin) 150 mg Q12HR IVP 03/07/17 09:00 03/13/17 11:29 03/08/17 09:37 Dextrose (Dextrose 50%) STAT PRN IV Hypoglycemia 03/07/17 15:30 04/03/17 15:29 Divalproex Sodium (Depakote Sprinkles) 250 mg Q12HR GT 03/07/17 09:00 04/03/17 20:59 03/08/17 08:19 Heparin Sodium (Porcine) (Heparin 5000 units/ml) 5,000 units EVERY 12 HOURS SUBQ 03/07/17 09:00 04/03/17 20:59 03/08/17 08:21 Insulin Aspart (NovoLOG) Q6HR SUBQ 03/07/17 00:00 04/03/17 20:59 03/08/17 11:57 Levetiracetam (Keppra) 500 mg Q12HR GT 03/07/17 09:00 04/03/17 20:59 03/08/17 08:19 Lorazepam (Ativan 2mg/ml 1ml) 2 mg Q2H PRN IV For Anxiety 03/07/17 01:30 03/11/17 15:29 Metronidazole (Flagyl) 500 mg EVERY 8 HOURS GT 03/07/17 22:00 03/14/17 21:59 03/08/17 15:35 Morphine Sulfate (Morphine Sulfate) 4 mg Q4H PRN IVP Severe Pain (Pain Scale 7-10) 03/07/17 03:30 03/11/17 15:29 Ondansetron HCl (Zofran) 4 mg Q6H PRN IVP Nausea & Vomiting 03/07/17 03:30 04/03/17 15:29 Pantoprazole (Protonix) 40 mg DAILY IV 03/07/17 09:00 04/04/17 08:59 03/08/17 08:19 Polyethylene Glycol (Miralax) 17 gm DAILYPRN PRN GT Constipation 03/07/17 18:15 04/06/17 18:14 Vancomycin HCl (Vanco rx to dose) 1 ea DAILY PRN MISC . 03/07/17 09:00 04/03/17 16:59 Vancomycin/Sodium Chloride 250 ml @ 166.667 mls/hr Q12H IVPB 03/08/17 09:00 03/13/17 08:59 03/08/17 09:37 JENNIFER BEVERLY Mar 08, 2017 16:34
--- NOTE | 2017-03-08 16:43 | Pulmonology Progress Note ---
Assessment/Plan Problems: (1) Sepsis (2) Nosocomial pneumonia (3) Anemia (4) Sacral decubitus ulcer (5) Paroxysmal a-fib (6) G tube feedings (7) Advanced dementia (8) Tracheostomy in place (9) Functional quadriplegia Assessment/Plan continue abx, Cefepime, Colistin, Flagyl frequent suctioning tolerating feeding wound care. dc planning Subjective ROS Limited/Unobtainable: No Constitutional: Reports: no symptoms HEENT: Repors: no symptoms Respiratory: Reports: no symptoms Allergies: Coded Allergies: No Known Allergies (Unverified , 01/02/17) Objective Last 24 Hour Vital Signs Date Time Temp Pulse Resp B/P (MAP) Pulse Ox O2 Delivery O2 Flow Rate FiO2 03/08/17 16:00 97.8 60 20 127/69 99 Trach Collar 6.0 03/08/17 13:12 T-piece 8.0 30 03/08/17 13:12 99 T-piece 6.0 30 03/08/17 12:00 98.0 79 20 124/67 99 Trach Collar 6.0 03/08/17 08:00 97.0 65 22 138/69 99 Trach Collar 6.0 03/08/17 08:00 99 T-piece 6.0 30 03/08/17 08:00 T-piece 8.0 30 03/08/17 08:00 90 20 T-piece 6.0 30 03/08/17 04:00 97.3 68 20 129/67 100 Room Air 03/08/17 01:32 99 T-piece 8.0 30 03/08/17 01:32 T-piece 8.0 30 03/07/17 23:58 98.1 65 18 127/67 99 Trach Collar 03/07/17 20:26 T-piece 8.0 30 03/07/17 20:26 66 20 T-piece 8.0 30 03/07/17 20:26 99 T-piece 8.0 30 03/07/17 20:06 98.1 66 20 132/73 68 Trach Collar Intake and Output 03/08/17 03/09/17 19:00 07:00 Intake Total 540 ml Balance 540 ml Intake Free Water 300 ml Tube Feeding 240 ml General Appearance: WD/WN HEENT: normocephalic, anicteric, status post trach Respiratory/Chest: chest wall non-tender, normal breath sounds Cardiovascular: normal peripheral pulses, regular rhythm Abdomen: normal bowel sounds, soft, non tender Genitourinary: normal external genitalia Extremities: no cyanosis Skin: no lesions Neurologic/Psychiatric: drawer in II-XII grossly normal Laboratory Tests 03/07/17 17:27: Vancomycin Level Trough 8.9 03/08/17 04:40: White Blood Count 7.4, Red Blood Count 3.36L, Hemoglobin 10.2L, Hematocrit 30.4L , Mean Corpuscular Volume 91, Mean Corpuscular Hemoglobin 30.4, Mean Corpuscular Hemoglobin Concent 33.6, Red Cell Distribution Width 15.6H, Platelet Count 270, Mean Platelet Volume 6.7, Neutrophils (%) (Auto) 56.8, Lymphocytes (%) (Auto) 21.8, Monocytes (%) (Auto) 17.5H, Eosinophils (%) (Auto) 3.0, Basophils (%) (Auto) 1.0, Sodium Level 136, Potassium Level 4.1, Chloride Level 101, Carbon Dioxide Level 33H, Anion Gap 2L, Blood Urea Nitrogen 9, Creatinine 0.8, Estimat Glomerular Filtration Rate , Glucose Level 143H, Calcium Level 9.5 Current Medications Medications (Trade) Dose Ordered Sig/Dorie Route PRN Reason Start Time Stop Time Status Last Admin Dose Admin Acetaminophen (Tylenol) 650 mg Q4H PRN ORAL T>100.5 03/07/17 03:30 04/03/17 15:29 Albuterol/ Ipratropium (Albuterol/ Ipratropium) 3 ml Q4H PRN HHN Shortness of Breath 03/07/17 03:30 03/09/17 15:29 Cefepime HCl 2 gm/ Dextrose 55 ml @ 110 mls/hr EVERY 12 HOURS IVPB 03/08/17 21:00 03/15/17 20:59 Colistimethate Sodium (Colistin) 150 mg Q12HR IVP 03/07/17 09:00 03/13/17 11:29 03/08/17 09:37 Dextrose (Dextrose 50%) STAT PRN IV Hypoglycemia 03/07/17 15:30 04/03/17 15:29 Divalproex Sodium (Depakote Sprinkles) 250 mg Q12HR GT 03/07/17 09:00 04/03/17 20:59 03/08/17 08:19 Heparin Sodium (Porcine) (Heparin 5000 units/ml) 5,000 units EVERY 12 HOURS SUBQ 03/07/17 09:00 04/03/17 20:59 03/08/17 08:21 Insulin Aspart (NovoLOG) Q6HR SUBQ 03/07/17 00:00 04/03/17 20:59 03/08/17 11:57 Levetiracetam (Keppra) 500 mg Q12HR GT 03/07/17 09:00 04/03/17 20:59 03/08/17 08:19 Lorazepam (Ativan 2mg/ml 1ml) 2 mg Q2H PRN IV For Anxiety 03/07/17 01:30 03/11/17 15:29 Metronidazole (Flagyl) 500 mg EVERY 8 HOURS GT 03/07/17 22:00 03/14/17 21:59 03/08/17 15:35 Morphine Sulfate (Morphine Sulfate) 4 mg Q4H PRN IVP Severe Pain (Pain Scale 7-10) 03/07/17 03:30 03/11/17 15:29 Ondansetron HCl (Zofran) 4 mg Q6H PRN IVP Nausea & Vomiting 03/07/17 03:30 04/03/17 15:29 Pantoprazole (Protonix) 40 mg DAILY IV 03/07/17 09:00 04/04/17 08:59 03/08/17 08:19 Polyethylene Glycol (Miralax) 17 gm DAILYPRN PRN GT Constipation 03/07/17 18:15 04/06/17 18:14 Vancomycin HCl (Vanco rx to dose) 1 ea DAILY PRN MISC . 03/07/17 09:00 04/03/17 16:59 Vancomycin/Sodium Chloride 250 ml @ 166.667 mls/hr Q12H IVPB 03/08/17 09:00 03/13/17 08:59 03/08/17 09:37 BAM SCHAEFFER Mar 08, 2017 16:43
[2017-03-08 20:00] VITALS: BP 127/65
[2017-03-08] MEDS: Cefepime 2gm in D5W 55ml IVPB SCH (21:27)
[2017-03-09] VITALS (7 sets, daily range): BP systolic 121–135; BP diastolic 58–85
[2017-03-09] MEDS: metroNIDAZOLE 500mg tab GT SCH ×3 (05:50→21:59)
[2017-03-09] MEDS: NovoLOG Insulin Flexpen SUBQ SCH ×4 (05:51→22:03)
[2017-03-09 06:32] LABS: BASOPHILS % (AUTO) 0.9 % (0.0-2.0); EOSINOPHILS % (AUTO) 3.3 % (0.0-3.0); LYMPHOCYTES % (AUTO) 23.4 % (20.0-45.0); MEAN CORPUSCULAR HEMOGLOBIN 28.9 PG (27.0-31.0); MEAN CORPUSCULAR HGB CONC 31.6 G/DL (32.0-36.0); MEAN CORPUSCULAR VOLUME 91 FL (80-99); MEAN PLATELET VOLUME 6.9 FL (6.5-10.1); MONOCYTES % (AUTO) 13.8 % (1.0-10.0); NEUTROPHILS % (AUTO) 58.6 % (45.0-75.0); PLATELET COUNT 322 K/UL (150-450); RED BLOOD COUNT 3.48 M/UL (4.70-6.10); RED CELL DISTRIBUTION WIDTH 15.7 % (11.6-14.8); WHITE BLOOD COUNT 7.1 K/UL (4.8-10.8)
[2017-03-09 07:15] LABS: ANION GAP 6 mmol/L (5-15); CALCIUM 9.7 MG/DL (8.5-10.1); CARBON DIOXIDE 31 MMOL/L (21-32); CHLORIDE 102 MMOL/L (98-107); CREATININE 0.8 MG/DL (0.55-1.30); POTASSIUM 4.2 MMOL/L (3.5-5.1); SODIUM 139 MMOL/L (136-145)
--- NOTE | 2017-03-09 08:52 | General Progress Note ---
Assessment/Plan Problem List: (1) UTI (urinary tract infection) Assessment & Plan: 2/2 MDR Klebsiella ICD Codes: N39.0 - Urinary tract infection, site not specified SNOMED: 06442676 Qualifiers: Qualified Codes: T83.511A - Infection and inflammatory reaction due to indwelling urethral catheter, initial encounter; N39.0 - Urinary tract infection , site not specified (2) Aspiration pneumonia ICD Codes: J69.0 - Pneumonitis due to inhalation of food and vomit SNOMED: 186096901 (3) Acute toxic metabolic encephalopathy (4) Chronic respiratory failure Assessment & Plan: with hypoxia s/p tracheostomy ICD Codes: J96.10 - Chronic respiratory failure, unspecified whether with hypoxia or hypercapnia SNOMED: 67041932 (5) Paroxysmal A-fib ICD Codes: I48.0 - Paroxysmal atrial fibrillation SNOMED: 278586097 (6) Advanced dementia ICD Codes: F03.90 - Unspecified dementia without behavioral disturbance SNOMED: 92912938 (7) Functional quadriplegia ICD Codes: R53.2 - Functional quadriplegia SNOMED: 629493159727070 (8) Tracheostomy in place ICD Codes: Z93.0 - Tracheostomy status SNOMED: 586543053 (9) S/P percutaneous endoscopic gastrostomy (PEG) tube placement ICD Codes: Z93.1 - Gastrostomy status SNOMED: 803672580 (10) Anemia ICD Codes: D64.9 - Anemia, unspecified SNOMED: 296516103 Qualifiers: Qualified Codes: D64.9 - Anemia, unspecified (11) Gastritis ICD Codes: K29.70 - Gastritis, unspecified, without bleeding SNOMED: 7824219 (12) Seizure disorder ICD Codes: G40.909 - Epilepsy, unspecified, not intractable, without status epilepticus SNOMED: 376915206 (13) HTN (hypertension) ICD Codes: I10 - Essential (primary) hypertension SNOMED: 53775304 (14) Diabetes mellitus ICD Codes: E11.9 - Type 2 diabetes mellitus without complications SNOMED: 48749851 Qualifiers: Qualified Codes: E11.8 - Type 2 diabetes mellitus with unspecified complications (15) Pressure ulcer Assessment & Plan: #1 Right lateral 1st metatarsal head pressure ulcer with yellow scab adhered to wound bed #2 Right Heel unstageable pressure ulcer #3 Sacral unstageable pressure ulcer #4 Left heel DTI pressure ulcer ICD Codes: L89.90 - Pressure ulcer of unspecified site, unspecified stage SNOMED: 015060528 Status: stable Assessment/Plan Vancomycin, polymyxin, cefepime and flagyl x 6 days s/p levaquin, cefepime and amikacin in ED on 03/04 ID and pulm consulted, appreciate rec's s/p olvera exchange on 03/05/17 F/u cultures--urine cx w/ >100K Klebseilla w/ carbapenem resistance Cont O2 via trach PRN Duonebs PRN Trend CBC, BMP Cont SNF meds Supportive care Wound care SW/CM consulted for d/c back to SNF, likely tomorrow DVT Prophylaxis: SCD, HSQ Code Status: Full Hospital Classification Declaration: Based on this initial evaluation, and depending on the patient's clinical course, I anticipate that this patient will require hospitalization for 1-2 days for UTI, AMS and close respiratory/ hemodynamic monitoring. Disposition: Once the patient is stable to leave the hospital, I anticipate the patient will likely be discharged to the following environment: back to SNF Discussed with patient/family, nursing staff, SW/CM, pulm, ID regarding clinical status, treatment course, and disposition planning. D/w ID re plan for abx Time of note may not reflect time of encounter. Subjective Date patient seen: Mar 08, 2017 Time patient seen: 11:00 ROS Limited/Unobtainable: No Allergies: Coded Allergies: No Known Allergies (Unverified , 01/02/17) Subjective No acute o/n events HDS Urine cx shows >100K Klebisella w/ carbapenem resistance Olvera exchanged on 03/06/17 Pt bedbound and nonverbal at baseline Unable to obtain ROS 2/2 dementia and pt nonverbal Objective Last 24 Hour Vital Signs Date Time Temp Pulse Resp B/P (MAP) Pulse Ox O2 Delivery O2 Flow Rate FiO2 03/09/17 04:00 97.3 77 20 135/85 100 Room Air 03/09/17 01:00 95 T-piece 8.0 30 03/09/17 01:00 T-piece 8.0 30 03/09/17 00:00 98.4 94 20 135/83 100 Room Air 03/08/17 20:00 98.2 73 20 127/65 96 Room Air 03/08/17 19:00 97 T-piece 8.0 30 03/08/17 19:00 T-piece 8.0 30 03/08/17 19:00 56 20 T-piece 8.0 30 03/08/17 16:00 97.8 60 20 127/69 99 Trach Collar 6.0 03/08/17 13:12 T-piece 8.0 30 03/08/17 13:12 99 T-piece 6.0 30 03/08/17 12:00 98.0 79 20 124/67 99 Trach Collar 6.0 Laboratory Tests 03/09/17 05:20: White Blood Count 7.1, Red Blood Count 3.48L, Hemoglobin 10.0L, Hematocrit 31.7L , Mean Corpuscular Volume 91, Mean Corpuscular Hemoglobin 28.9, Mean Corpuscular Hemoglobin Concent 31.6L, Red Cell Distribution Width 15.7H, Platelet Count 322, Mean Platelet Volume 6.9, Neutrophils (%) (Auto) 58.6, Lymphocytes (%) (Auto) 23.4, Monocytes (%) (Auto) 13.8H, Eosinophils (%) (Auto) 3.3H, Basophils (%) (Auto) 0.9, Sodium Level 139, Potassium Level 4.2, Chloride Level 102, Carbon Dioxide Level 31, Anion Gap 6, Blood Urea Nitrogen 8, Creatinine 0.8, Estimat Glomerular Filtration Rate , Glucose Level 148H, Calcium Level 9.7 03/09/17 08:20: Vancomycin Level Trough [Pending] Height (Feet): 6 Height (Inches): 0.00 Weight (Pounds): 180 Objective General: eyes closed, nonverbal, unresponsive to voice and painful stimuli Head: normocephalic, without obvious abnormality, atraumatic Eyes: conjunctivae/corneas clear. PERRL, EOM's intact Throat: lips, mucosa, and tongue normal. MMM Neck: supple, symmetrical, trachea midline, and no JVD Lungs: +rhonchi b/l, decreased breath sounds on L side Heart: regular rate and rhythm, S1, S2 normal, no murmur, click, rub or gallop Abdomen: soft, non-tender, non-distended, bowel sounds normal; no masses or organomegaly Extremities: extremities normal, atraumatic, no cyanosis or edema Pulses: 2+ and symmetric Skin: skin color, texture, turgor normal; no rashes or lesions Neurologic: unable to assess Trvais Hinojosa M.D. Mar 09, 2017 08:52
[2017-03-09] MEDS: Colistin 150mg vial IVP SCH ×2 (09:05→22:11)
[2017-03-09] MEDS: Cefepime 2gm in D5W 55ml IVPB SCH ×2 (09:06→22:00)
[2017-03-09] MEDS: Depakote 125mg Sprinkles GT SCH ×2 (09:09→22:00)
[2017-03-09] MEDS: levETIRAcetam 500mg/5ml Liquid GT SCH ×2 (09:10→22:00)
[2017-03-09] MEDS: Pantoprazole Inj IV SCH (09:10)
[2017-03-09] MEDS: Heparin 5000 units/ml inj SUBQ SCH ×2 (09:11→22:02)
[2017-03-09] MEDS: Vancomycin 750mg/NS 250ml IVPB SCH ×2 (10:52→22:01)
[2017-03-09] MEDS ORDERED: CEFEPIME-D2 GM/50 ML IVPB (14:15)
[2017-03-09] MEDS ORDERED: COLISTIN150 MG IVP (14:22)
[2017-03-09] MEDS ORDERED: VANCOMYCIN1 GM/2502 IVPB (14:22)
--- NOTE | 2017-03-09 16:03 | Pulmonology Progress Note ---
Assessment/Plan Problems: (1) Sepsis (2) Nosocomial pneumonia (3) Anemia (4) Sacral decubitus ulcer (5) Paroxysmal a-fib (6) G tube feedings (7) Advanced dementia (8) Tracheostomy in place (9) Functional quadriplegia Assessment/Plan continue abx, Cefepime, Colistin, Flagyl frequent suctioning tolerating feeding wound care. dc planning try to find the son to arrange for dc home Subjective ROS Limited/Unobtainable: No Constitutional: Reports: no symptoms HEENT: Repors: no symptoms Respiratory: Reports: no symptoms Allergies: Coded Allergies: No Known Allergies (Unverified , 01/02/17) Objective Last 24 Hour Vital Signs Date Time Temp Pulse Resp B/P (MAP) Pulse Ox O2 Delivery O2 Flow Rate FiO2 03/09/17 13:20 97 T-piece 8.0 30 03/09/17 13:20 T-piece 8.0 30 03/09/17 12:00 97.7 86 18 121/58 100 Trach Collar 6.0 03/09/17 08:00 98.0 78 16 129/65 100 Trach Collar 6.0 03/09/17 06:38 T-piece 8.0 30 03/09/17 06:38 96 T-piece 8.0 30 03/09/17 06:38 77 19 T-piece 8.0 30 03/09/17 04:00 97.3 77 20 135/85 100 Room Air 03/09/17 01:00 95 T-piece 8.0 30 03/09/17 01:00 T-piece 8.0 30 03/09/17 00:00 98.4 94 20 135/83 100 Room Air 03/08/17 20:00 98.2 73 20 127/65 96 Room Air 03/08/17 19:00 97 T-piece 8.0 30 03/08/17 19:00 T-piece 8.0 30 03/08/17 19:00 56 20 T-piece 8.0 30 Intake and Output 03/09/17 03/10/17 19:00 07:00 Intake Total 635.000 ml Balance 635.000 ml Intake Free Water 150 ml IV Total 305.000 ml Tube Feeding 180 ml General Appearance: WD/WN HEENT: normocephalic, atraumatic Respiratory/Chest: chest wall non-tender, lungs clear Cardiovascular: normal peripheral pulses, regular rhythm Abdomen: normal bowel sounds, soft, non tender Genitourinary: normal external genitalia Extremities: no cyanosis Skin: no lesions Neurologic/Psychiatric: statue maker II-XII grossly normal Laboratory Tests 03/09/17 05:20: White Blood Count 7.1, Red Blood Count 3.48L, Hemoglobin 10.0L, Hematocrit 31.7L , Mean Corpuscular Volume 91, Mean Corpuscular Hemoglobin 28.9, Mean Corpuscular Hemoglobin Concent 31.6L, Red Cell Distribution Width 15.7H, Platelet Count 322, Mean Platelet Volume 6.9, Neutrophils (%) (Auto) 58.6, Lymphocytes (%) (Auto) 23.4, Monocytes (%) (Auto) 13.8H, Eosinophils (%) (Auto) 3.3H, Basophils (%) (Auto) 0.9, Sodium Level 139, Potassium Level 4.2, Chloride Level 102, Carbon Dioxide Level 31, Anion Gap 6, Blood Urea Nitrogen 8, Creatinine 0.8, Estimat Glomerular Filtration Rate , Glucose Level 148H, Calcium Level 9.7 03/09/17 08:20: Vancomycin Level Trough 16.5H Current Medications Medications (Trade) Dose Ordered Sig/Dorie Route PRN Reason Start Time Stop Time Status Last Admin Dose Admin Acetaminophen (Tylenol) 650 mg Q4H PRN ORAL T>100.5 03/07/17 03:30 04/03/17 15:29 Cefepime HCl 2 gm/ Dextrose 55 ml @ 110 mls/hr EVERY 12 HOURS IVPB 03/08/17 21:00 03/15/17 20:59 03/09/17 09:06 Colistimethate Sodium (Colistin) 150 mg Q12HR IVP 03/07/17 09:00 03/13/17 11:29 03/09/17 09:05 Dextrose (Dextrose 50%) STAT PRN IV Hypoglycemia 03/07/17 15:30 04/03/17 15:29 Divalproex Sodium (Depakote Sprinkles) 250 mg Q12HR GT 03/07/17 09:00 04/03/17 20:59 03/09/17 09:09 Heparin Sodium (Porcine) (Heparin 5000 units/ml) 5,000 units EVERY 12 HOURS SUBQ 03/07/17 09:00 04/03/17 20:59 03/09/17 09:11 Insulin Aspart (NovoLOG) Q6HR SUBQ 03/07/17 00:00 04/03/17 20:59 03/09/17 12:46 Levetiracetam (Keppra) 500 mg Q12HR GT 03/07/17 09:00 04/03/17 20:59 03/09/17 09:10 Lorazepam (Ativan 2mg/ml 1ml) 2 mg Q2H PRN IV For Anxiety 03/07/17 01:30 03/11/17 15:29 Metronidazole (Flagyl) 500 mg EVERY 8 HOURS GT 03/07/17 22:00 03/14/17 21:59 03/09/17 14:18 Morphine Sulfate (Morphine Sulfate) 4 mg Q4H PRN IVP Severe Pain (Pain Scale 7-10) 03/07/17 03:30 03/11/17 15:29 Ondansetron HCl (Zofran) 4 mg Q6H PRN IVP Nausea & Vomiting 03/07/17 03:30 04/03/17 15:29 Pantoprazole (Protonix) 40 mg DAILY IV 03/07/17 09:00 04/04/17 08:59 03/09/17 09:10 Polyethylene Glycol (Miralax) 17 gm DAILYPRN PRN GT Constipation 03/07/17 18:15 04/06/17 18:14 Vancomycin HCl (Vanco rx to dose) 1 ea DAILY PRN MISC . 03/07/17 09:00 04/03/17 16:59 Vancomycin/Sodium Chloride 250 ml @ 166.667 mls/hr Q12H IVPB 03/08/17 09:00 03/13/17 08:59 03/09/17 10:52 BAM SCHAEFFER Mar 09, 2017 16:03
[2017-03-09] MEDS ORDERED: NS 275ml ONE (20:06)
--- NOTE | 2017-03-09 20:47 | Infectious Diseases Prog Note ---
Assessment/Plan Assessment/Plan A) 1) KPC/Klebsiella uti, pseudomonas pna/providencia pna, proteus/strep/staph aureus/enterococcus sacral wound infection 2) chronic olvera 3) trach, no vent 4) sz, dm, htn, anemia, arrhythmia, af, dementia, qp, cva, weakness, dysphagia, g-tube 5) allergies - negative, fh-nc, sh-negative, mar noted, notes and records noted 6) d/w RN P) 1) vancomycin, polymyxin, cefepime and flagyl x 5 days 2) check labs and chest x-ray 3) wound care per protocol 4) continue treatment per primary and consultants 5) orders entered and noted Subjective Constitutional: Denies: fever HEENT: Reports: congestion - mild Respiratory: Denies: shortness of breath Cardiovascular: Reports: other - no pressors Genitourinary: Reports: other - + olvera Neurologic: Reports: weakness, other - lethargic Skin: Denies: rash Hematologic: Denies: bleeding Allergies: Coded Allergies: No Known Allergies (Unverified , 01/02/17) Objective Vital Signs Last 24 Hour Vital Signs Date Time Temp Pulse Resp B/P (MAP) Pulse Ox O2 Delivery O2 Flow Rate FiO2 03/09/17 20:00 97.9 86 18 125/71 100 Trach Collar 6.0 03/09/17 16:00 97.9 80 18 127/71 100 Room Air 03/09/17 13:20 97 T-piece 8.0 30 03/09/17 13:20 T-piece 8.0 30 03/09/17 12:00 97.7 86 18 121/58 100 Trach Collar 6.0 03/09/17 08:00 98.0 78 16 129/65 100 Trach Collar 6.0 03/09/17 06:38 T-piece 8.0 30 03/09/17 06:38 96 T-piece 8.0 30 03/09/17 06:38 77 19 T-piece 8.0 30 03/09/17 04:00 97.3 77 20 135/85 100 Room Air 03/09/17 01:00 95 T-piece 8.0 30 03/09/17 01:00 T-piece 8.0 30 03/09/17 00:00 98.4 94 20 135/83 100 Room Air Height (Feet): 6 Height (Inches): 0.00 Weight (Pounds): 180 General Appearance: no acute distress HEENT: normocephalic, atraumatic, anicteric, no JVD, status post trach Respiratory/Chest: crackles/rales, rhonchi - bilaterally Cardiovascular: normal rate, regular rhythm, no gallop/murmur, no JVD Abdomen: normal bowel sounds, soft, non tender, no organomegaly Genitourinary: other - no olvera Extremities: no cyanosis Skin: no rash, other - wounds reviewed - sacral wound fairly clean, other wouunds stable Neurologic/Psychiatric: motor weakness, other Lymphatic: no neck adenopathy Musculoskeletal: no effusion Objective 03/05 - chest x-ray Impression: New finding of left-sided pleural effusion Retrocardiac atelectasis and consolidation, new since previous study of 2016 Right basilar atelectasis, improved since 07/04/1703/06 - chest x-ray - Comparison: 03/04/2017 Findings: Slightly improved inspiration, with slightly decreased right basilar atelectasis. There is also decreased atelectasis at the left lung base. Tracheostomy remains. Impression: Preparation with improved bibasilar atelectasis. Microbiology Date/Time Source Procedure Growth Status 03/05/17 05:50 Sputum Gram Stain - Final Complete 03/05/17 05:50 Sputum Culture - Final Pseudomonas Aeruginosa Providencia Stuartii Complete 03/04/17 17:00 Stool Clostridium difficile Toxin Assay - Final Complete 03/04/17 12:30 Urine,Clean Catch Urine Culture - Final K.pneumoniae Carbapenem Resist Complete 03/04/17 19:00 Sacral Wound Gram Stain - Final Complete 03/04/17 19:00 Wound Culture - Final Proteus Mirabilis Staphylococcus Aureus - Mrsa Enterococcus Faecalis Complete Laboratory Tests Test 03/09/17 05:20 03/09/17 08:20 White Blood Count 7.1 K/UL (4.8-10.8) Red Blood Count 3.48 M/UL (4.70-6.10) L Hemoglobin 10.0 G/DL (14.2-18.0) L Hematocrit 31.7 % (42.0-52.0) L Mean Corpuscular Volume 91 FL (80-99) Mean Corpuscular Hemoglobin 28.9 PG (27.0-31.0) Mean Corpuscular Hemoglobin Concent 31.6 G/DL (32.0-36.0) L Red Cell Distribution Width 15.7 % (11.6-14.8) H Platelet Count 322 K/UL (150-450) Mean Platelet Volume 6.9 FL (6.5-10.1) Neutrophils (%) (Auto) 58.6 % (45.0-75.0) Lymphocytes (%) (Auto) 23.4 % (20.0-45.0) Monocytes (%) (Auto) 13.8 % (1.0-10.0) H Eosinophils (%) (Auto) 3.3 % (0.0-3.0) H Basophils (%) (Auto) 0.9 % (0.0-2.0) Sodium Level 139 MMOL/L (136-145) Potassium Level 4.2 MMOL/L (3.5-5.1) Chloride Level 102 MMOL/L (98-107) Carbon Dioxide Level 31 MMOL/L (21-32) Anion Gap 6 mmol/L (5-15) Blood Urea Nitrogen 8 mg/dL (7-18) Creatinine 0.8 MG/DL (0.55-1.30) Estimat Glomerular Filtration Rate mL/min (>60) Glucose Level 148 MG/DL (74-106) H Calcium Level 9.7 MG/DL (8.5-10.1) Vancomycin Level Trough 16.5 ug/mL (5.0-12.0) H Current Medications Medications (Trade) Dose Ordered Sig/Dorie Route PRN Reason Start Time Stop Time Status Last Admin Dose Admin Acetaminophen (Tylenol) 650 mg Q4H PRN ORAL T>100.5 03/07/17 03:30 04/03/17 15:29 Cefepime HCl 2 gm/ Dextrose 55 ml @ 110 mls/hr EVERY 12 HOURS IVPB 03/08/17 21:00 03/15/17 20:59 03/09/17 09:06 Colistimethate Sodium (Colistin) 150 mg Q12HR IVP 03/07/17 09:00 03/13/17 11:29 03/09/17 09:05 Dextrose (Dextrose 50%) STAT PRN IV Hypoglycemia 03/07/17 15:30 04/03/17 15:29 Divalproex Sodium (Depakote Sprinkles) 250 mg Q12HR GT 03/07/17 09:00 04/03/17 20:59 03/09/17 09:09 Heparin Sodium (Porcine) (Heparin 5000 units/ml) 5,000 units EVERY 12 HOURS SUBQ 03/07/17 09:00 04/03/17 20:59 03/09/17 09:11 Insulin Aspart (NovoLOG) Q6HR SUBQ 03/07/17 00:00 04/03/17 20:59 03/09/17 17:36 Levetiracetam (Keppra) 500 mg Q12HR GT 03/07/17 09:00 04/03/17 20:59 03/09/17 09:10 Lorazepam (Ativan 2mg/ml 1ml) 2 mg Q2H PRN IV For Anxiety 03/07/17 01:30 03/11/17 15:29 Metronidazole (Flagyl) 500 mg EVERY 8 HOURS GT 03/07/17 22:00 03/14/17 21:59 03/09/17 14:18 Morphine Sulfate (Morphine Sulfate) 4 mg Q4H PRN IVP Severe Pain (Pain Scale 7-10) 03/07/17 03:30 03/11/17 15:29 Ondansetron HCl (Zofran) 4 mg Q6H PRN IVP Nausea & Vomiting 03/07/17 03:30 04/03/17 15:29 Pantoprazole (Protonix) 40 mg DAILY IV 03/07/17 09:00 04/04/17 08:59 03/09/17 09:10 Polyethylene Glycol (Miralax) 17 gm DAILYPRN PRN GT Constipation 03/07/17 18:15 04/06/17 18:14 Vancomycin HCl (Vanco rx to dose) 1 ea DAILY PRN MISC . 03/07/17 09:00 04/03/17 16:59 Vancomycin/Sodium Chloride 250 ml @ 166.667 mls/hr Q12H IVPB 03/08/17 09:00 03/13/17 08:59 03/09/17 10:52 JENNIFER BEVERLY Mar 09, 2017 20:47
[2017-03-10 04:00] VITALS: BP 149/60
[2017-03-10] MEDS: metroNIDAZOLE 500mg tab GT SCH ×3 (05:07→22:08)
[2017-03-10] MEDS: NovoLOG Insulin Flexpen SUBQ SCH ×3 (05:11→18:07)
[2017-03-10 06:28] LABS: BASOPHILS % (AUTO) 0.8 % (0.0-2.0); EOSINOPHILS % (AUTO) 4.1 % (0.0-3.0); LYMPHOCYTES % (AUTO) 26.6 % (20.0-45.0); MEAN CORPUSCULAR HEMOGLOBIN 30.9 PG (27.0-31.0); MEAN CORPUSCULAR VOLUME 91 FL (80-99); MEAN PLATELET VOLUME 6.3 FL (6.5-10.1); MONOCYTES % (AUTO) 14.6 % (1.0-10.0); NEUTROPHILS % (AUTO) 53.9 % (45.0-75.0); PLATELET COUNT 324 K/UL (150-450); RED BLOOD COUNT 3.38 M/UL (4.70-6.10); RED CELL DISTRIBUTION WIDTH 15.6 % (11.6-14.8); WHITE BLOOD COUNT 6.4 K/UL (4.8-10.8)
[2017-03-10 07:36] LABS: ALANINE AMINOTRANSFERASE 10 U/L (12-78); ALBUMIN/GLOBULIN RATIO 0.3 (1.0-2.7); ANION GAP 4 mmol/L (5-15); ASPARTATE AMINO TRANSFERASE 14 U/L (15-37); CALCIUM 9.5 MG/DL (8.5-10.1); CARBON DIOXIDE 33 MMOL/L (21-32); CHLORIDE 100 MMOL/L (98-107); CREATININE 0.9 MG/DL (0.55-1.30); MAGNESIUM 1.8 MG/DL (1.8-2.4); PHOSPHORUS 3.9 MG/DL (2.5-4.9); POTASSIUM 3.9 MMOL/L (3.5-5.1); SODIUM 137 MMOL/L (136-145); TOTAL PROTEIN 8.1 G/DL (6.4-8.2)
[2017-03-10 08:00] VITALS: BP 128/81
[2017-03-10] MEDS: Cefepime 2gm in D5W 55ml IVPB SCH ×2 (08:28→22:08)
[2017-03-10] MEDS: Depakote 125mg Sprinkles GT SCH ×2 (08:51→22:09)
[2017-03-10] MEDS: levETIRAcetam 500mg/5ml Liquid GT SCH ×2 (08:53→22:07)
[2017-03-10] MEDS: Heparin 5000 units/ml inj SUBQ SCH ×2 (09:14→22:09)
[2017-03-10] MEDS: Vancomycin 750mg/NS 250ml IVPB SCH ×2 (09:19→23:29)
[2017-03-10] MEDS: Colistin 150mg vial IVP SCH ×2 (09:19→22:08)
[2017-03-10] MEDS: Pantoprazole Inj IV SCH (09:19)
--- NOTE | 2017-03-10 11:21 | Wound Nurse Progress Note ---
Wound RN Progress Note Wound Consult Reassessment #1 Right lateral 1st metatarsal head pressure ulcer with yellow scab adhered to wound bed-noted good progress, no further deterioration present, noted decrease in yellow scab, #2 Right Heel unstageable pressure ulcer- no further deterioration, remains unstageable, current treatment remains effective. #3 Sacral unstageable pressure ulcer- noted good progress, noted wound bed with pink in color 60%,maroon 20%, yellow 20% , current wound care effective. #4 Left heel DTI pressure ulcer- remains as dti,intact, tobacco blender in color. no further deterioration noted upon reassessment. Recommendation -Right Heel unstageable pressure ulcer and Sacral unstageable pressure ulcer, Cleanse with saline, pat dry, apply skin barrier film, apply Therahoney gel wound bed, cover Biatain Silicone drg daily and PRN soiled/dislodged -Right lateral 1st metatarsal head pressure ulcer with yellow scab adhered to wound bed and Left heel DTI pressure ulcer, Cleanse with saline, pat dry, apply skin barrier film daily and leave area open to air -Keep clean and dry -Turn and reposition -Low air loss mattress -Optimize nutrition -Offload both heels -Heel protector on both heels -Assess and f/u accordingly for any changes RUSH CAMPOS Mar 10, 2017 11:21
[2017-03-10 12:00] VITALS: BP 137/91
--- NOTE | 2017-03-10 12:20 | Diagnostic Imaging Report ---
Indication: Shortness of breath Technique: One view of the chest Comparison: 03/08/2017 Findings: Tracheostomy, bilateral basilar atelectasis, left basilar ovoid lucency , cholecystectomy clips are all unchanged. Impression: Unchanged, over 2 days, findings as above.
--- NOTE | 2017-03-10 13:47 | Pulmonology Progress Note ---
Assessment/Plan Problems: (1) Sepsis (2) Nosocomial pneumonia (3) Anemia (4) Sacral decubitus ulcer (5) Paroxysmal a-fib (6) G tube feedings (7) Advanced dementia (8) Tracheostomy in place (9) Functional quadriplegia Assessment/Plan dc planning in progress continue abx, Cefepime, Colistin, Flagyl frequent suctioning tolerating feeding wound care. try to find the son to arrange for dc home Subjective ROS Limited/Unobtainable: No Constitutional: Reports: no symptoms HEENT: Repors: no symptoms Allergies: Coded Allergies: No Known Allergies (Unverified , 01/02/17) Objective Last 24 Hour Vital Signs Date Time Temp Pulse Resp B/P (MAP) Pulse Ox O2 Delivery O2 Flow Rate FiO2 03/10/17 12:00 96.8 72 20 137/91 100 03/10/17 08:00 97.0 99 20 128/81 100 03/10/17 08:00 T-piece 8.0 03/10/17 07:00 T-piece 8.0 30 03/10/17 07:00 78 19 T-piece 8.0 30 03/10/17 07:00 100 T-piece 8.0 30 03/10/17 04:00 98.4 87 20 149/60 100 Room Air 03/10/17 01:51 97 T-piece 8.0 30 03/10/17 01:51 T-piece 8.0 30 03/09/17 23:52 98.4 90 18 135/77 100 Trach Collar 6.0 03/09/17 22:23 T-piece 8.0 30 03/09/17 22:23 100 T-piece 8.0 30 03/09/17 22:23 86 19 T-piece 8.0 30 03/09/17 20:00 97.9 86 18 125/71 100 Trach Collar 6.0 03/09/17 16:00 97.9 80 18 127/71 100 Room Air Objective General Appearance: WD/WN HEENT: normocephalic, anicteric, trach intact Cardiovascular: normal peripheral pulses, normal rate Abdomen: normal bowel sounds, no organomegaly Genitourinary: normal external genitalia Extremities: no clubbing Skin: no lesions Lymphatic: no neck adenopathy Laboratory Tests 03/10/17 04:50: Sodium Level 137, Potassium Level 3.9, Chloride Level 100, Carbon Dioxide Level 33H, Anion Gap 4L, Blood Urea Nitrogen 8, Creatinine 0.9, Estimat Glomerular Filtration Rate , Glucose Level 154H, Calcium Level 9.5, Phosphorus Level 3.9, Magnesium Level 1.8, Total Bilirubin 0.2, Aspartate Amino Transf (AST/SGOT) 14L , Alanine Aminotransferase (ALT/SGPT) 10L, Alkaline Phosphatase 125H, Total Protein 8.1, Albumin 2.1L, Globulin 6.0, Albumin/Globulin Ratio 0.3L 03/10/17 04:55: White Blood Count 6.4, Red Blood Count 3.38L, Hemoglobin 10.4L, Hematocrit 30.7L , Mean Corpuscular Volume 91, Mean Corpuscular Hemoglobin 30.9, Mean Corpuscular Hemoglobin Concent 34.0, Red Cell Distribution Width 15.6H, Platelet Count 324, Mean Platelet Volume 6.3L, Neutrophils (%) (Auto) 53.9, Lymphocytes (%) (Auto) 26.6, Monocytes (%) (Auto) 14.6H, Eosinophils (%) (Auto) 4.1H, Basophils (%) (Auto) 0.8 Current Medications Medications (Trade) Dose Ordered Sig/Dorie Route PRN Reason Start Time Stop Time Status Last Admin Dose Admin Acetaminophen (Tylenol) 650 mg Q4H PRN ORAL T>100.5 03/07/17 03:30 04/03/17 15:29 Cefepime HCl 2 gm/ Dextrose 55 ml @ 110 mls/hr EVERY 12 HOURS IVPB 03/08/17 21:00 03/15/17 20:59 03/10/17 08:28 Colistimethate Sodium (Colistin) 150 mg Q12HR IVP 03/07/17 09:00 03/13/17 11:29 03/10/17 09:19 Dextrose (Dextrose 50%) STAT PRN IV Hypoglycemia 03/07/17 15:30 04/03/17 15:29 Divalproex Sodium (Depakote Sprinkles) 250 mg Q12HR GT 03/07/17 09:00 04/03/17 20:59 03/10/17 08:51 Heparin Sodium (Porcine) (Heparin 5000 units/ml) 5,000 units EVERY 12 HOURS SUBQ 03/07/17 09:00 04/03/17 20:59 03/10/17 09:14 Insulin Aspart (NovoLOG) Q6HR SUBQ 03/07/17 00:00 04/03/17 20:59 03/10/17 12:36 Levetiracetam (Keppra) 500 mg Q12HR GT 03/07/17 09:00 04/03/17 20:59 03/10/17 08:53 Lorazepam (Ativan 2mg/ml 1ml) 2 mg Q2H PRN IV For Anxiety 03/07/17 01:30 03/11/17 15:29 Metronidazole (Flagyl) 500 mg EVERY 8 HOURS GT 03/07/17 22:00 03/14/17 21:59 03/10/17 05:07 Morphine Sulfate (Morphine Sulfate) 4 mg Q4H PRN IVP Severe Pain (Pain Scale 7-10) 03/07/17 03:30 03/11/17 15:29 Ondansetron HCl (Zofran) 4 mg Q6H PRN IVP Nausea & Vomiting 03/07/17 03:30 04/03/17 15:29 Pantoprazole (Protonix) 40 mg DAILY IV 03/07/17 09:00 04/04/17 08:59 03/10/17 09:19 Polyethylene Glycol (Miralax) 17 gm DAILYPRN PRN GT Constipation 03/07/17 18:15 04/06/17 18:14 Vancomycin HCl (Vanco rx to dose) 1 ea DAILY PRN MISC . 03/07/17 09:00 04/03/17 16:59 Vancomycin/Sodium Chloride 250 ml @ 166.667 mls/hr Q12H IVPB 03/08/17 09:00 03/13/17 08:59 03/10/17 09:19 BAM SCHAEFFER Mar 10, 2017 13:47
--- NOTE | 2017-03-10 14:07 | General Progress Note ---
Assessment/Plan Problem List: (1) UTI (urinary tract infection) Assessment & Plan: 2/2 MDR Klebsiella ICD Codes: N39.0 - Urinary tract infection, site not specified SNOMED: 06032616 Qualifiers: Qualified Codes: T83.511A - Infection and inflammatory reaction due to indwelling urethral catheter, initial encounter; N39.0 - Urinary tract infection , site not specified (2) Aspiration pneumonia ICD Codes: J69.0 - Pneumonitis due to inhalation of food and vomit SNOMED: 722871961 (3) Acute toxic metabolic encephalopathy (4) Chronic respiratory failure Assessment & Plan: with hypoxia s/p tracheostomy ICD Codes: J96.10 - Chronic respiratory failure, unspecified whether with hypoxia or hypercapnia SNOMED: 15695724 (5) Paroxysmal A-fib ICD Codes: I48.0 - Paroxysmal atrial fibrillation SNOMED: 428599095 (6) Advanced dementia ICD Codes: F03.90 - Unspecified dementia without behavioral disturbance SNOMED: 29900889 (7) Functional quadriplegia ICD Codes: R53.2 - Functional quadriplegia SNOMED: 107274548311071 (8) Tracheostomy in place ICD Codes: Z93.0 - Tracheostomy status SNOMED: 932815218 (9) S/P percutaneous endoscopic gastrostomy (PEG) tube placement ICD Codes: Z93.1 - Gastrostomy status SNOMED: 336163072 (10) Anemia ICD Codes: D64.9 - Anemia, unspecified SNOMED: 408667058 Qualifiers: Qualified Codes: D64.9 - Anemia, unspecified (11) Gastritis ICD Codes: K29.70 - Gastritis, unspecified, without bleeding SNOMED: 6831898 (12) Seizure disorder ICD Codes: G40.909 - Epilepsy, unspecified, not intractable, without status epilepticus SNOMED: 889138601 (13) HTN (hypertension) ICD Codes: I10 - Essential (primary) hypertension SNOMED: 06272187 (14) Diabetes mellitus ICD Codes: E11.9 - Type 2 diabetes mellitus without complications SNOMED: 71134958 Qualifiers: Qualified Codes: E11.8 - Type 2 diabetes mellitus with unspecified complications (15) Pressure ulcer Assessment & Plan: #1 Right lateral 1st metatarsal head pressure ulcer with yellow scab adhered to wound bed #2 Right Heel unstageable pressure ulcer #3 Sacral unstageable pressure ulcer #4 Left heel DTI pressure ulcer ICD Codes: L89.90 - Pressure ulcer of unspecified site, unspecified stage SNOMED: 114005232 Status: stable Assessment/Plan Vancomycin, polymyxin, cefepime and flagyl x 4 more days s/p levaquin, cefepime and amikacin in ED on 03/04 ID and pulm consulted, appreciate rec's s/p olvera exchange on 03/05/17 F/u cultures--urine cx w/ >100K Klebseilla w/ carbapenem resistance Cont O2 via trach PRN Duonebs PRN Trend CBC, BMP Cont SNF meds Supportive care Wound care CM consulted for d/c back to SNF, awaiting placement. Pt has run out of Medicare SNF days and he has no secondary insurance. He has not qualified for [facility] in past. Awaiting discussion w/ son. Consider home w/ hospice if family agrees SW consulted for possible APS DVT Prophylaxis: SCD, HSQ Code Status: Full Hospital Classification Declaration: Based on this initial evaluation, and depending on the patient's clinical course, I anticipate that this patient will require hospitalization for 1-2 days for UTI, AMS and close respiratory/ hemodynamic monitoring. Disposition: Once the patient is stable to leave the hospital, I anticipate the patient will likely be discharged to the following environment: back to SNF Discussed with patient/family, nursing staff, SW/CM, pulm, ID regarding clinical status, treatment course, and disposition planning. D/w ID re plan for abx Time of note may not reflect time of encounter. Subjective Date patient seen: Mar 10, 2017 Time patient seen: 14:05 ROS Limited/Unobtainable: Yes Allergies: Coded Allergies: No Known Allergies (Unverified , 01/02/17) All Systems: reviewed and negative except above Subjective No acute o/n events HDS Urine cx shows >100K Klebisella w/ carbapenem resistance Olvera exchanged on 03/06/17 Awaiting placement. Spoke to pt's who deferred to son Manuelito. Left ms for Manuelito, awaiting call back Pt bedbound and nonverbal at baseline Unable to obtain ROS 2/2 dementia and pt nonverbal Objective Last 24 Hour Vital Signs Date Time Temp Pulse Resp B/P (MAP) Pulse Ox O2 Delivery O2 Flow Rate FiO2 03/10/17 12:00 96.8 72 20 137/91 100 03/10/17 08:00 97.0 99 20 128/81 100 03/10/17 08:00 T-piece 8.0 03/10/17 07:00 T-piece 8.0 30 03/10/17 07:00 78 19 T-piece 8.0 30 03/10/17 07:00 100 T-piece 8.0 30 03/10/17 04:00 98.4 87 20 149/60 100 Room Air 03/10/17 01:51 97 T-piece 8.0 30 03/10/17 01:51 T-piece 8.0 30 03/09/17 23:52 98.4 90 18 135/77 100 Trach Collar 6.0 03/09/17 22:23 T-piece 8.0 30 03/09/17 22:23 100 T-piece 8.0 30 03/09/17 22:23 86 19 T-piece 8.0 30 03/09/17 20:00 97.9 86 18 125/71 100 Trach Collar 6.0 03/09/17 16:00 97.9 80 18 127/71 100 Room Air Laboratory Tests 03/10/17 04:50: Sodium Level 137, Potassium Level 3.9, Chloride Level 100, Carbon Dioxide Level 33H, Anion Gap 4L, Blood Urea Nitrogen 8, Creatinine 0.9, Estimat Glomerular Filtration Rate , Glucose Level 154H, Calcium Level 9.5, Phosphorus Level 3.9, Magnesium Level 1.8, Total Bilirubin 0.2, Aspartate Amino Transf (AST/SGOT) 14L , Alanine Aminotransferase (ALT/SGPT) 10L, Alkaline Phosphatase 125H, Total Protein 8.1, Albumin 2.1L, Globulin 6.0, Albumin/Globulin Ratio 0.3L 03/10/17 04:55: White Blood Count 6.4, Red Blood Count 3.38L, Hemoglobin 10.4L, Hematocrit 30.7L , Mean Corpuscular Volume 91, Mean Corpuscular Hemoglobin 30.9, Mean Corpuscular Hemoglobin Concent 34.0, Red Cell Distribution Width 15.6H, Platelet Count 324, Mean Platelet Volume 6.3L, Neutrophils (%) (Auto) 53.9, Lymphocytes (%) (Auto) 26.6, Monocytes (%) (Auto) 14.6H, Eosinophils (%) (Auto) 4.1H, Basophils (%) (Auto) 0.8 Height (Feet): 6 Height (Inches): 0.00 Weight (Pounds): 180 Objective General: eyes closed, nonverbal, unresponsive to voice and painful stimuli Head: normocephalic, without obvious abnormality, atraumatic Eyes: conjunctivae/corneas clear. PERRL, EOM's intact Throat: lips, mucosa, and tongue normal. MMM Neck: supple, symmetrical, trachea midline, and no JVD Lungs: +rhonchi b/l, decreased breath sounds on L side Heart: regular rate and rhythm, S1, S2 normal, no murmur, click, rub or gallop Abdomen: soft, non-tender, non-distended, bowel sounds normal; no masses or organomegaly Extremities: extremities normal, atraumatic, no cyanosis or edema Pulses: 2+ and symmetric Skin: skin color, texture, turgor normal; no rashes or lesions Neurologic: unable to assess Travis Hinojosa M.D. Mar 10, 2017 14:07
[2017-03-10 16:00] VITALS: BP 104/59
--- NOTE | 2017-03-10 16:10 | Infectious Diseases Prog Note ---
Assessment/Plan Assessment/Plan A) 1) KPC/Klebsiella uti, pseudomonas pna/providencia pna, proteus/strep/staph aureus/enterococcus sacral wound infection 2) chronic olvera 3) trach, no vent 4) sz, dm, htn, anemia, arrhythmia, af, dementia, qp, cva, weakness, dysphagia, g-tube 5) allergies - negative, fh-nc, sh-negative, mar noted, notes and records noted 6) d/w RN P) 1) vancomycin, polymyxin, cefepime and flagyl x 4 days 2) check labs and chest x-ray 3) wound care per protocol 4) continue treatment per primary and consultants 5) orders entered and noted 6) d/w Dr. Robles Subjective Constitutional: Denies: fever HEENT: Reports: congestion Respiratory: Denies: shortness of breath Cardiovascular: Denies: chest pain Gastrointestinal/Abdominal: Denies: nausea, vomiting, diarrhea Genitourinary: Reports: other - + olvera - urine clearer Neurologic: Reports: weakness, other - poorly responsive Psychiatric: Reports: no symptoms Skin: Denies: rash Hematologic: Denies: bleeding Musculoskeletal: Denies: pain Allergies: Coded Allergies: No Known Allergies (Unverified , 01/02/17) Objective Vital Signs Last 24 Hour Vital Signs Date Time Temp Pulse Resp B/P (MAP) Pulse Ox O2 Delivery O2 Flow Rate FiO2 03/10/17 14:00 T-piece 8.0 30 03/10/17 14:00 99 T-piece 8.0 30 03/10/17 12:00 96.8 72 20 137/91 100 03/10/17 08:00 97.0 99 20 128/81 100 03/10/17 08:00 T-piece 8.0 03/10/17 07:00 T-piece 8.0 30 03/10/17 07:00 78 19 T-piece 8.0 30 03/10/17 07:00 100 T-piece 8.0 30 03/10/17 04:00 98.4 87 20 149/60 100 Room Air 03/10/17 01:51 97 T-piece 8.0 30 03/10/17 01:51 T-piece 8.0 30 03/09/17 23:52 98.4 90 18 135/77 100 Trach Collar 6.0 03/09/17 22:23 T-piece 8.0 30 03/09/17 22:23 100 T-piece 8.0 30 03/09/17 22:23 86 19 T-piece 8.0 30 03/09/17 20:00 97.9 86 18 125/71 100 Trach Collar 6.0 Height (Feet): 6 Height (Inches): 0.00 Weight (Pounds): 180 General Appearance: no acute distress HEENT: normocephalic, atraumatic, anicteric, mucous membranes moist, no JVD, status post trach Respiratory/Chest: crackles/rales, rhonchi - bilaterally Cardiovascular: normal rate, regular rhythm, no gallop/murmur, no JVD Abdomen: normal bowel sounds, soft, non tender, no organomegaly, non distended Genitourinary: other - + olvera - urine clearer Extremities: no cyanosis Skin: no rash Neurologic/Psychiatric: motor weakness, other - poorly responsive Lymphatic: no neck adenopathy Musculoskeletal: no effusion Objective 03/05 - chest x-ray Impression: New finding of left-sided pleural effusion Retrocardiac atelectasis and consolidation, new since previous study of 2016 Right basilar atelectasis, improved since 07/04/1703/06 - chest x-ray - Comparison: 03/04/2017 Findings: Slightly improved inspiration, with slightly decreased right basilar atelectasis. There is also decreased atelectasis at the left lung base. Tracheostomy remains. Impression: Preparation with improved bibasilar atelectasis. 03/10 - chest x-ray: Findings: Tracheostomy, bilateral basilar atelectasis, left basilar ovoid lucency , cholecystectomy clips are all unchanged. Impression: Unchanged, over 2 days, findings as above. Microbiology Date/Time Source Procedure Growth Status 03/05/17 05:50 Sputum Gram Stain - Final Complete 03/05/17 05:50 Sputum Culture - Final Pseudomonas Aeruginosa Providencia Stuartii Complete 03/04/17 17:00 Stool Clostridium difficile Toxin Assay - Final Complete 03/04/17 12:30 Urine,Clean Catch Urine Culture - Final K.pneumoniae Carbapenem Resist Complete 03/04/17 19:00 Sacral Wound Gram Stain - Final Complete 03/04/17 19:00 Wound Culture - Final Proteus Mirabilis Staphylococcus Aureus - Mrsa Enterococcus Faecalis Complete Laboratory Tests Test 03/10/17 04:50 03/10/17 04:55 Sodium Level 137 MMOL/L (136-145) Potassium Level 3.9 MMOL/L (3.5-5.1) Chloride Level 100 MMOL/L (98-107) Carbon Dioxide Level 33 MMOL/L (21-32) H Anion Gap 4 mmol/L (5-15) L Blood Urea Nitrogen 8 mg/dL (7-18) Creatinine 0.9 MG/DL (0.55-1.30) Estimat Glomerular Filtration Rate mL/min (>60) Glucose Level 154 MG/DL (74-106) H Calcium Level 9.5 MG/DL (8.5-10.1) Phosphorus Level 3.9 MG/DL (2.5-4.9) Magnesium Level 1.8 MG/DL (1.8-2.4) Total Bilirubin 0.2 MG/DL (0.2-1.0) Aspartate Amino Transf (AST/SGOT) 14 U/L (15-37) L Alanine Aminotransferase (ALT/SGPT) 10 U/L (12-78) L Alkaline Phosphatase 125 U/L (46-116) H Total Protein 8.1 G/DL (6.4-8.2) Albumin 2.1 G/DL (3.4-5.0) L Globulin 6.0 g/dL Albumin/Globulin Ratio 0.3 (1.0-2.7) L White Blood Count 6.4 K/UL (4.8-10.8) Red Blood Count 3.38 M/UL (4.70-6.10) L Hemoglobin 10.4 G/DL (14.2-18.0) L Hematocrit 30.7 % (42.0-52.0) L Mean Corpuscular Volume 91 FL (80-99) Mean Corpuscular Hemoglobin 30.9 PG (27.0-31.0) Mean Corpuscular Hemoglobin Concent 34.0 G/DL (32.0-36.0) Red Cell Distribution Width 15.6 % (11.6-14.8) H Platelet Count 324 K/UL (150-450) Mean Platelet Volume 6.3 FL (6.5-10.1) L Neutrophils (%) (Auto) 53.9 % (45.0-75.0) Lymphocytes (%) (Auto) 26.6 % (20.0-45.0) Monocytes (%) (Auto) 14.6 % (1.0-10.0) H Eosinophils (%) (Auto) 4.1 % (0.0-3.0) H Basophils (%) (Auto) 0.8 % (0.0-2.0) Current Medications Medications (Trade) Dose Ordered Sig/Dorie Route PRN Reason Start Time Stop Time Status Last Admin Dose Admin Acetaminophen (Tylenol) 650 mg Q4H PRN ORAL T>100.5 03/07/17 03:30 04/03/17 15:29 Cefepime HCl 2 gm/ Dextrose 55 ml @ 110 mls/hr EVERY 12 HOURS IVPB 03/08/17 21:00 03/15/17 20:59 03/10/17 08:28 Colistimethate Sodium (Colistin) 150 mg Q12HR IVP 03/07/17 09:00 03/13/17 11:29 03/10/17 09:19 Dextrose (Dextrose 50%) STAT PRN IV Hypoglycemia 03/07/17 15:30 04/03/17 15:29 Divalproex Sodium (Depakote Sprinkles) 250 mg Q12HR GT 03/07/17 09:00 04/03/17 20:59 03/10/17 08:51 Heparin Sodium (Porcine) (Heparin 5000 units/ml) 5,000 units EVERY 12 HOURS SUBQ 03/07/17 09:00 04/03/17 20:59 03/10/17 09:14 Insulin Aspart (NovoLOG) Q6HR SUBQ 03/07/17 00:00 04/03/17 20:59 03/10/17 12:36 Levetiracetam (Keppra) 500 mg Q12HR GT 03/07/17 09:00 04/03/17 20:59 03/10/17 08:53 Lorazepam (Ativan 2mg/ml 1ml) 2 mg Q2H PRN IV For Anxiety 03/07/17 01:30 03/11/17 15:29 Metronidazole (Flagyl) 500 mg EVERY 8 HOURS GT 03/07/17 22:00 03/14/17 21:59 03/10/17 14:43 Morphine Sulfate (Morphine Sulfate) 4 mg Q4H PRN IVP Severe Pain (Pain Scale 7-10) 03/07/17 03:30 03/11/17 15:29 Ondansetron HCl (Zofran) 4 mg Q6H PRN IVP Nausea & Vomiting 03/07/17 03:30 04/03/17 15:29 Pantoprazole (Protonix) 40 mg DAILY IV 03/07/17 09:00 04/04/17 08:59 03/10/17 09:19 Polyethylene Glycol (Miralax) 17 gm DAILYPRN PRN GT Constipation 03/07/17 18:15 04/06/17 18:14 Vancomycin HCl (Vanco rx to dose) 1 ea DAILY PRN MISC . 03/07/17 09:00 04/03/17 16:59 Vancomycin/Sodium Chloride 250 ml @ 166.667 mls/hr Q12H IVPB 03/08/17 09:00 03/13/17 08:59 03/10/17 09:19 JENNIFER BEVERLY Mar 10, 2017 16:10
[2017-03-10 20:00] VITALS: BP 91/52
[2017-03-11] VITALS (7 sets, daily range): BP systolic 111–138; BP diastolic 61–88
[2017-03-11] MEDS: NovoLOG Insulin Flexpen SUBQ SCH ×4 (00:16→16:58)
[2017-03-11] MEDS: metroNIDAZOLE 500mg tab GT SCH ×3 (05:13→22:08)
[2017-03-11] MEDS: Pantoprazole Inj IV SCH (07:55)
[2017-03-11] MEDS: levETIRAcetam 500mg/5ml Liquid GT SCH ×2 (07:55→20:23)
[2017-03-11] MEDS: Depakote 125mg Sprinkles GT SCH ×2 (07:56→20:23)
[2017-03-11] MEDS: Heparin 5000 units/ml inj SUBQ SCH ×2 (07:57→20:24)
[2017-03-11] MEDS: Cefepime 2gm in D5W 55ml IVPB SCH ×2 (08:36→20:23)
[2017-03-11] MEDS: Colistin 150mg vial IVP SCH ×2 (08:55→20:22)
[2017-03-11] MEDS: Vancomycin 750mg/NS 250ml IVPB SCH ×2 (09:50→22:09)
--- NOTE | 2017-03-11 11:30 | Pulmonology Progress Note ---
Assessment/Plan Problems: (1) Sepsis (2) Nosocomial pneumonia (3) Anemia (4) Sacral decubitus ulcer (5) Paroxysmal a-fib (6) G tube feedings (7) Advanced dementia (8) Tracheostomy in place (9) Functional quadriplegia Assessment/Plan dc planning in progress continue abx, Cefepime, Colistin, Flagyl frequent suctioning tolerating feeding wound care. I discussed with the son about different options. the patient has some properties, and gets 1500 in [place]. They can't take him home and don't have the money to pay for assisted living or "prison Care" Subjective ROS Limited/Unobtainable: No Constitutional: Reports: no symptoms HEENT: Repors: no symptoms Respiratory: Reports: no symptoms Allergies: Coded Allergies: No Known Allergies (Unverified , 01/02/17) Objective Last 24 Hour Vital Signs Date Time Temp Pulse Resp B/P (MAP) Pulse Ox O2 Delivery O2 Flow Rate FiO2 03/11/17 08:00 97.0 77 21 138/63 96 Trach Collar 03/11/17 07:23 100 T-piece 8.0 30 03/11/17 07:23 T-piece 8.0 30 03/11/17 07:23 96 20 T-piece 8.0 30 03/11/17 04:43 97.7 74 17 111/61 99 03/11/17 04:00 T-piece 03/11/17 01:30 T-piece 8.0 30 03/11/17 01:30 98 T-piece 8.0 30 03/11/17 00:00 97.3 91 20 134/88 100 T-piece 03/11/17 00:00 T-piece 03/10/17 20:00 97.3 97 20 91/52 100 T-piece 03/10/17 20:00 T-piece 03/10/17 19:00 T-piece 8.0 30 03/10/17 19:00 100 T-piece 8.0 30 03/10/17 19:00 97 20 T-piece 8.0 30 03/10/17 16:00 97.3 64 20 104/59 98 03/10/17 14:00 T-piece 8.0 30 03/10/17 14:00 99 T-piece 8.0 30 03/10/17 12:00 96.8 72 20 137/91 100 Intake and Output 03/11/17 03/12/17 19:00 07:00 Intake Total 60 ml Balance 60 ml Tube Feeding 60 ml # Voids 1 Objective General Appearance: WD/WN HEENT: normocephalic, anicteric, trach intact Cardiovascular: normal peripheral pulses, normal rate Abdomen: normal bowel sounds, no organomegaly Genitourinary: normal external genitalia Extremities: no clubbing Skin: no lesions Lymphatic: no neck adenopathy Current Medications Medications (Trade) Dose Ordered Sig/Dorie Route PRN Reason Start Time Stop Time Status Last Admin Dose Admin Acetaminophen (Tylenol) 650 mg Q4H PRN ORAL T>100.5 03/07/17 03:30 04/03/17 15:29 Cefepime HCl 2 gm/ Dextrose 55 ml @ 110 mls/hr EVERY 12 HOURS IVPB 03/08/17 21:00 03/15/17 20:59 03/11/17 08:36 Colistimethate Sodium (Colistin) 150 mg Q12HR IVP 03/07/17 09:00 03/13/17 11:29 03/11/17 08:55 Dextrose (Dextrose 50%) STAT PRN IV Hypoglycemia 03/07/17 15:30 04/03/17 15:29 Divalproex Sodium (Depakote Sprinkles) 250 mg Q12HR GT 03/07/17 09:00 04/03/17 20:59 03/11/17 07:56 Heparin Sodium (Porcine) (Heparin 5000 units/ml) 5,000 units EVERY 12 HOURS SUBQ 03/07/17 09:00 04/03/17 20:59 03/11/17 07:57 Insulin Aspart (NovoLOG) Q6HR SUBQ 03/07/17 00:00 04/03/17 20:59 03/11/17 05:14 Levetiracetam (Keppra) 500 mg Q12HR GT 03/07/17 09:00 04/03/17 20:59 03/11/17 07:55 Lorazepam (Ativan 2mg/ml 1ml) 2 mg Q2H PRN IV For Anxiety 03/07/17 01:30 03/11/17 15:29 Metronidazole (Flagyl) 500 mg EVERY 8 HOURS GT 03/07/17 22:00 03/14/17 21:59 03/11/17 05:13 Morphine Sulfate (Morphine Sulfate) 4 mg Q4H PRN IVP Severe Pain (Pain Scale 7-10) 03/07/17 03:30 03/11/17 15:29 Ondansetron HCl (Zofran) 4 mg Q6H PRN IVP Nausea & Vomiting 03/07/17 03:30 04/03/17 15:29 Pantoprazole (Protonix) 40 mg DAILY IV 03/07/17 09:00 04/04/17 08:59 03/11/17 07:55 Polyethylene Glycol (Miralax) 17 gm DAILYPRN PRN GT Constipation 03/07/17 18:15 04/06/17 18:14 Vancomycin HCl (Vanco rx to dose) 1 ea DAILY PRN MISC . 03/07/17 09:00 04/03/17 16:59 Vancomycin/Sodium Chloride 250 ml @ 166.667 mls/hr Q12H IVPB 03/08/17 09:00 03/13/17 08:59 03/11/17 09:50 BAM SCHAEFFER Mar 11, 2017 11:30
[2017-03-11] MEDS ORDERED: Tubing IV Secondary IV ONE ×2 (16:32→16:39)
[2017-03-11] MEDS ORDERED: NS 275ml ONE ×2 (16:32→16:39)
--- NOTE | 2017-03-11 18:36 | General Progress Note ---
Assessment/Plan Problem List: (1) UTI (urinary tract infection) Assessment & Plan: 2/2 MDR Klebsiella ICD Codes: N39.0 - Urinary tract infection, site not specified SNOMED: 77060114 Qualifiers: Qualified Codes: T83.511A - Infection and inflammatory reaction due to indwelling urethral catheter, initial encounter; N39.0 - Urinary tract infection , site not specified (2) Aspiration pneumonia ICD Codes: J69.0 - Pneumonitis due to inhalation of food and vomit SNOMED: 106076806 (3) Acute toxic metabolic encephalopathy (4) Chronic respiratory failure Assessment & Plan: with hypoxia s/p tracheostomy ICD Codes: J96.10 - Chronic respiratory failure, unspecified whether with hypoxia or hypercapnia SNOMED: 63134592 (5) Paroxysmal A-fib ICD Codes: I48.0 - Paroxysmal atrial fibrillation SNOMED: 453555153 (6) Advanced dementia ICD Codes: F03.90 - Unspecified dementia without behavioral disturbance SNOMED: 22626061 (7) Functional quadriplegia ICD Codes: R53.2 - Functional quadriplegia SNOMED: 444269406180788 (8) Tracheostomy in place ICD Codes: Z93.0 - Tracheostomy status SNOMED: 537061090 (9) S/P percutaneous endoscopic gastrostomy (PEG) tube placement ICD Codes: Z93.1 - Gastrostomy status SNOMED: 465099683 (10) Anemia ICD Codes: D64.9 - Anemia, unspecified SNOMED: 687261563 Qualifiers: Qualified Codes: D64.9 - Anemia, unspecified (11) Gastritis ICD Codes: K29.70 - Gastritis, unspecified, without bleeding SNOMED: 4229646 (12) Seizure disorder ICD Codes: G40.909 - Epilepsy, unspecified, not intractable, without status epilepticus SNOMED: 777361236 (13) HTN (hypertension) ICD Codes: I10 - Essential (primary) hypertension SNOMED: 66859375 (14) Diabetes mellitus ICD Codes: E11.9 - Type 2 diabetes mellitus without complications SNOMED: 20527855 Qualifiers: Qualified Codes: E11.8 - Type 2 diabetes mellitus with unspecified complications (15) Pressure ulcer Assessment & Plan: #1 Right lateral 1st metatarsal head pressure ulcer with yellow scab adhered to wound bed #2 Right Heel unstageable pressure ulcer #3 Sacral unstageable pressure ulcer #4 Left heel DTI pressure ulcer ICD Codes: L89.90 - Pressure ulcer of unspecified site, unspecified stage SNOMED: 293506017 Status: stable Assessment/Plan Vancomycin, polymyxin, cefepime and flagyl x 3 more days s/p levaquin, cefepime and amikacin in ED on 03/04 ID and pulm consulted, appreciate rec's s/p olvera exchange on 03/05/17 F/u cultures--urine cx w/ >100K Klebseilla w/ carbapenem resistance Cont O2 via trach PRN Duonebs PRN Trend CBC, BMP Cont SNF meds Supportive care Wound care CM consulted for d/c back to SNF, awaiting placement. Pt has run out of Medicare SNF days and he has no secondary insurance. He has not qualified for [facility] in past. Awaiting discussion w/ son. Consider home w/ hospice if family agrees SW consulted for possible APS DVT Prophylaxis: SCD, HSQ Code Status: Full Hospital Classification Declaration: Based on this initial evaluation, and depending on the patient's clinical course, I anticipate that this patient will require hospitalization for 1-2 days for UTI, AMS and close respiratory/ hemodynamic monitoring. Disposition: Once the patient is stable to leave the hospital, I anticipate the patient will likely be discharged to the following environment: back to SNF Discussed with patient/family, nursing staff, SW/CM, pulm, ID regarding clinical status, treatment course, and disposition planning. D/w ID re plan for abx Time of note may not reflect time of encounter. Subjective Date patient seen: Mar 11, 2017 Time patient seen: 12:00 ROS Limited/Unobtainable: Yes Allergies: Coded Allergies: No Known Allergies (Unverified , 01/02/17) Subjective No acute o/n events HDS Urine cx shows >100K Klebisella w/ carbapenem resistance Olvera exchanged on 03/06/17 A[address] placement. Spoke to pt's who deferred to son Manuelito. Left ms for Manuelito, awaiting call back Pt bedbound and nonverbal at baseline Unable to obtain ROS 2/2 dementia and pt nonverbal Objective Last 24 Hour Vital Signs Date Time Temp Pulse Resp B/P (MAP) Pulse Ox O2 Delivery O2 Flow Rate FiO2 03/11/17 16:00 97.7 86 20 120/61 100 03/11/17 12:45 T-piece 8.0 30 03/11/17 12:45 99 T-piece 8.0 30 03/11/17 11:46 97.9 76 19 126/71 99 Trach Collar 03/11/17 08:00 97.0 77 21 138/63 96 Trach Collar 03/11/17 07:23 100 T-piece 8.0 30 03/11/17 07:23 T-piece 8.0 30 03/11/17 07:23 96 20 T-piece 8.0 30 03/11/17 04:43 97.7 74 17 111/61 99 03/11/17 04:00 T-piece 03/11/17 01:30 T-piece 8.0 30 03/11/17 01:30 98 T-piece 8.0 30 03/11/17 00:00 97.3 91 20 134/88 100 T-piece 03/11/17 00:00 T-piece 03/10/17 20:00 97.3 97 20 91/52 100 T-piece 03/10/17 20:00 T-piece 03/10/17 19:00 T-piece 8.0 30 03/10/17 19:00 100 T-piece 8.0 30 03/10/17 19:00 97 20 T-piece 8.0 30 Intake and Output 03/11/17 03/12/17 19:00 07:00 Intake Total 905.000 ml Balance 905.000 ml Intake Free Water 300 ml IV Total 305.000 ml Tube Feeding 300 ml # Voids 2 Height (Feet): 6 Height (Inches): 0.00 Weight (Pounds): 180 Objective General: eyes closed, nonverbal, unresponsive to voice and painful stimuli Head: normocephalic, without obvious abnormality, atraumatic Eyes: conjunctivae/corneas clear. PERRL, EOM's intact Throat: lips, mucosa, and tongue normal. MMM Neck: supple, symmetrical, trachea midline, and no JVD Lungs: +rhonchi b/l, decreased breath sounds on L side Heart: regular rate and rhythm, S1, S2 normal, no murmur, click, rub or gallop Abdomen: soft, non-tender, non-distended, bowel sounds normal; no masses or organomegaly Extremities: extremities normal, atraumatic, no cyanosis or edema Pulses: 2+ and symmetric Skin: skin color, texture, turgor normal; no rashes or lesions Neurologic: unable to assess Travis Hinojosa M.D. Mar 11, 2017 18:36
--- NOTE | 2017-03-11 23:13 | Diagnostic Imaging Report ---
APPROVED REPORT CPT Code: 75850 Present Symptoms Comments: R/O DVT Hx of HTN AFIB Risk Factors Bed Rest BILATERAL: Imaging reveals a patent deep venous system bilaterally. There is no evidence of thrombus within the femoral, popliteal or tibial segments. The greater saphenous veins are also within normal limits. Doppler indicates normal spontaneous flow within these segments.
[2017-03-12] VITALS: BP 143/79
[2017-03-12] MEDS: NovoLOG Insulin Flexpen SUBQ SCH ×4 (00:35→17:31)
[2017-03-12 04:00] VITALS: BP 127/76
[2017-03-12] MEDS: metroNIDAZOLE 500mg tab GT SCH ×3 (05:52→21:49)
[2017-03-12 07:20] LABS: BASOPHILS % (AUTO) 0.8 % (0.0-2.0); EOSINOPHILS % (AUTO) 4.3 % (0.0-3.0); LYMPHOCYTES % (AUTO) 30.3 % (20.0-45.0); MEAN CORPUSCULAR HEMOGLOBIN 30.4 PG (27.0-31.0); MEAN CORPUSCULAR HGB CONC 33.3 G/DL (32.0-36.0); MEAN CORPUSCULAR VOLUME 91 FL (80-99); MEAN PLATELET VOLUME 6.5 FL (6.5-10.1); MONOCYTES % (AUTO) 13.8 % (1.0-10.0); NEUTROPHILS % (AUTO) 50.8 % (45.0-75.0); PLATELET COUNT 335 K/UL (150-450); RED BLOOD COUNT 3.39 M/UL (4.70-6.10); RED CELL DISTRIBUTION WIDTH 16.4 % (11.6-14.8); WHITE BLOOD COUNT 7.5 K/UL (4.8-10.8)
[2017-03-12 07:35] LABS: ALANINE AMINOTRANSFERASE 9 U/L (12-78); ALBUMIN/GLOBULIN RATIO 0.4 (1.0-2.7); ANION GAP 4 mmol/L (5-15); ASPARTATE AMINO TRANSFERASE 19 U/L (15-37); CALCIUM 9.6 MG/DL (8.5-10.1); CARBON DIOXIDE 34 MMOL/L (21-32); CHLORIDE 102 MMOL/L (98-107); CREATININE 1.1 MG/DL (0.55-1.30); POTASSIUM 3.5 MMOL/L (3.5-5.1); SODIUM 140 MMOL/L (136-145)
[2017-03-12 08:00] VITALS: BP 135/59
[2017-03-12] MEDS: Pantoprazole Inj IV SCH (09:13)
[2017-03-12] MEDS: levETIRAcetam 500mg/5ml Liquid GT SCH ×2 (09:13→21:23)
[2017-03-12] MEDS: Cefepime 2gm in D5W 55ml IVPB SCH ×2 (09:14→21:23)
[2017-03-12] MEDS: Depakote 125mg Sprinkles GT SCH ×2 (09:14→21:24)
[2017-03-12] MEDS: Heparin 5000 units/ml inj SUBQ SCH ×2 (09:16→21:47)
[2017-03-12] MEDS: Colistin 150mg vial IVP SCH ×3 (10:15→21:46)
--- NOTE | 2017-03-12 11:14 | General Progress Note ---
Assessment/Plan Problem List: (1) UTI (urinary tract infection) Assessment & Plan: 2/2 MDR Klebsiella ICD Codes: N39.0 - Urinary tract infection, site not specified SNOMED: 01259049 Qualifiers: Qualified Codes: T83.511A - Infection and inflammatory reaction due to indwelling urethral catheter, initial encounter; N39.0 - Urinary tract infection , site not specified (2) Aspiration pneumonia ICD Codes: J69.0 - Pneumonitis due to inhalation of food and vomit SNOMED: 863682749 (3) Acute toxic metabolic encephalopathy (4) Chronic respiratory failure Assessment & Plan: with hypoxia s/p tracheostomy ICD Codes: J96.10 - Chronic respiratory failure, unspecified whether with hypoxia or hypercapnia SNOMED: 19054875 (5) Paroxysmal A-fib ICD Codes: I48.0 - Paroxysmal atrial fibrillation SNOMED: 041176600 (6) Advanced dementia ICD Codes: F03.90 - Unspecified dementia without behavioral disturbance SNOMED: 01176708 (7) Functional quadriplegia ICD Codes: R53.2 - Functional quadriplegia SNOMED: 789191089957742 (8) Tracheostomy in place ICD Codes: Z93.0 - Tracheostomy status SNOMED: 157634971 (9) S/P percutaneous endoscopic gastrostomy (PEG) tube placement ICD Codes: Z93.1 - Gastrostomy status SNOMED: 991637270 (10) Anemia ICD Codes: D64.9 - Anemia, unspecified SNOMED: 993995542 Qualifiers: Qualified Codes: D64.9 - Anemia, unspecified (11) Gastritis ICD Codes: K29.70 - Gastritis, unspecified, without bleeding SNOMED: 3258241 (12) Seizure disorder ICD Codes: G40.909 - Epilepsy, unspecified, not intractable, without status epilepticus SNOMED: 756548620 (13) HTN (hypertension) ICD Codes: I10 - Essential (primary) hypertension SNOMED: 81873298 (14) Diabetes mellitus ICD Codes: E11.9 - Type 2 diabetes mellitus without complications SNOMED: 53608298 Qualifiers: Qualified Codes: E11.8 - Type 2 diabetes mellitus with unspecified complications (15) Pressure ulcer Assessment & Plan: #1 Right lateral 1st metatarsal head pressure ulcer with yellow scab adhered to wound bed #2 Right Heel unstageable pressure ulcer #3 Sacral unstageable pressure ulcer #4 Left heel DTI pressure ulcer ICD Codes: L89.90 - Pressure ulcer of unspecified site, unspecified stage SNOMED: 908953304 Status: stable Assessment/Plan Vancomycin, polymyxin, cefepime and flagyl x 2 more days per ID s/p levaquin, cefepime and amikacin in ED on 03/04 ID and pulm consulted, appreciate rec's s/p olvera exchange on 03/05/17 F/u cultures--urine cx w/ >100K Klebseilla w/ carbapenem resistance Cont O2 via trach PRN Duonebs PRN Trend CBC, BMP Cont SNF meds Supportive care Wound care CM consulted for d/c back to SNF, awaiting placement. Pt has run out of Medicare SNF days and he has no secondary insurance. He has not qualified for [facility] in past. Awaiting discussion w/ son. Consider home w/ hospice if family agrees SW consulted for possible APS DVT Prophylaxis: SCD, HSQ Code Status: Full Hospital Classification Declaration: Based on this initial evaluation, and depending on the patient's clinical course, I anticipate that this patient will require hospitalization for 1-2 days for UTI, AMS and close respiratory/ hemodynamic monitoring. Disposition: Once the patient is stable to leave the hospital, I anticipate the patient will likely be discharged to the following environment: back to SNF Discussed with patient/family, nursing staff, SW/CM, pulm, ID regarding clinical status, treatment course, and disposition planning. D/w ID re plan for abx Time of note may not reflect time of encounter. Subjective Date patient seen: Mar 12, 2017 Time patient seen: 11:14 ROS Limited/Unobtainable: No Constitutional: Reports: no symptoms HEENT: Reports: no symptoms Cardiovascular: Reports: no symptoms Respiratory: Reports: no symptoms Gastrointestinal/Abdominal: Reports: no symptoms Genitourinary: Reports: no symptoms Neurologic/Psychiatric: Reports: no symptoms Endocrine: Reports: no symptoms Hematologic/Lymphatic: Reports: no symptoms Allergies: Coded Allergies: No Known Allergies (Unverified , 01/02/17) Subjective No acute o/n events HDS Urine cx shows >100K Klebisella w/ carbapenem resistance Olvera exchanged on 03/06/17 Await[address] placement. Spoke to pt's who deferred to son Manuelito. Left msg for Manuelito, awaiting call back Pt bedbound and nonverbal at baseline Unable to obtain ROS 2/2 dementia and pt nonverbal Objective Last 24 Hour Vital Signs Date Time Temp Pulse Resp B/P (MAP) Pulse Ox O2 Delivery O2 Flow Rate FiO2 03/12/17 08:28 83 18 Trach Collar 8.0 30 03/12/17 08:28 Trach Collar 8.0 30 03/12/17 08:28 100 Trach Collar 8.0 30 03/12/17 08:00 98.4 62 17 135/59 100 Trach Collar 6.0 03/12/17 04:09 Trach Collar 30 03/12/17 04:09 99 Trach Collar 8.0 30 03/12/17 04:00 98.0 60 20 127/76 100 Room Air 03/12/17 00:00 98.3 76 18 143/79 99 T-piece 03/11/17 20:00 96.4 84 18 131/79 98 T-piece 03/11/17 19:40 71 16 Trach Collar 30 03/11/17 19:40 Trach Collar 30 03/11/17 19:40 99 Trach Collar 30 03/11/17 16:00 97.7 86 20 120/61 100 03/11/17 12:45 T-piece 8.0 30 03/11/17 12:45 99 T-piece 8.0 30 03/11/17 11:46 97.9 76 19 126/71 99 Trach Collar Laboratory Tests 03/12/17 05:35: White Blood Count 7.5, Red Blood Count 3.39L, Hemoglobin 10.3L, Hematocrit 31.0L , Mean Corpuscular Volume 91, Mean Corpuscular Hemoglobin 30.4, Mean Corpuscular Hemoglobin Concent 33.3, Red Cell Distribution Width 16.4H, Platelet Count 335, Mean Platelet Volume 6.5, Neutrophils (%) (Auto) 50.8, Lymphocytes (%) (Auto) 30.3, Monocytes (%) (Auto) 13.8H, Eosinophils (%) (Auto) 4.3H, Basophils (%) (Auto) 0.8, Sodium Level 140, Potassium Level 3.5, Chloride Level 102, Carbon Dioxide Level 34H, Anion Gap 4L, Blood Urea Nitrogen 11, Creatinine 1.1, Estimat Glomerular Filtration Rate , Glucose Level 128H, Calcium Level 9.6, Total Bilirubin 0.2, Aspartate Amino Transf (AST/SGOT) 19, Alanine Aminotransferase (ALT/SGPT) 9L, Alkaline Phosphatase 114, Pro-B-Type Natriuretic Peptide 385H, Total Protein 8.0, Albumin 2.2L, Globulin 5.8, Albumin /Globulin Ratio 0.4L 03/12/17 07:50: Vancomycin Level Trough 26.1H Height (Feet): 6 Height (Inches): 0.00 Weight (Pounds): 180 Objective General: eyes closed, nonverbal, unresponsive to voice and painful stimuli Head: normocephalic, without obvious abnormality, atraumatic Eyes: conjunctivae/corneas clear. PERRL, EOM's intact Throat: lips, mucosa, and tongue normal. MMM Neck: supple, symmetrical, trachea midline, and no JVD Lungs: +rhonchi b/l, decreased breath sounds on L side Heart: regular rate and rhythm, S1, S2 normal, no murmur, click, rub or gallop Abdomen: soft, non-tender, non-distended, bowel sounds normal; no masses or organomegaly Extremities: extremities normal, atraumatic, no cyanosis or edema Pulses: 2+ and symmetric Skin: skin color, texture, turgor normal; no rashes or lesions Neurologic: unable to assess Travis Hinojosa M.D. Mar 12, 2017 11:14
--- NOTE | 2017-03-12 11:46 | Pulmonology Progress Note ---
Assessment/Plan Problems: (1) Sepsis (2) Nosocomial pneumonia (3) Anemia (4) Sacral decubitus ulcer (5) Paroxysmal a-fib (6) G tube feedings (7) Advanced dementia (8) Tracheostomy in place (9) Functional quadriplegia Assessment/Plan open eyes, comfortable continue abx, Cefepime, Colistin, Flagyl frequent suctioning tolerating feeding wound care. I discussed with the son about different options. the patient has some properties, and gets 1500 in [place]. They can't take him home and don't have the money to pay for assisted living or "senior care Care all reviewed check labs in am Subjective ROS Limited/Unobtainable: No Constitutional: Reports: no symptoms HEENT: Repors: no symptoms Allergies: Coded Allergies: No Known Allergies (Unverified , 01/02/17) Objective Last 24 Hour Vital Signs Date Time Temp Pulse Resp B/P (MAP) Pulse Ox O2 Delivery O2 Flow Rate FiO2 03/12/17 08:28 83 18 Trach Collar 8.0 30 03/12/17 08:28 Trach Collar 8.0 30 03/12/17 08:28 100 Trach Collar 8.0 30 03/12/17 08:00 98.4 62 17 135/59 100 Trach Collar 6.0 03/12/17 04:09 Trach Collar 30 03/12/17 04:09 99 Trach Collar 8.0 30 03/12/17 04:00 98.0 60 20 127/76 100 Room Air 03/12/17 00:00 98.3 76 18 143/79 99 T-piece 03/11/17 20:00 96.4 84 18 131/79 98 T-piece 03/11/17 19:40 71 16 Trach Collar 30 03/11/17 19:40 Trach Collar 30 03/11/17 19:40 99 Trach Collar 30 03/11/17 16:00 97.7 86 20 120/61 100 03/11/17 12:45 T-piece 8.0 30 03/11/17 12:45 99 T-piece 8.0 30 03/11/17 11:46 97.9 76 19 126/71 99 Trach Collar Objective General Appearance: WD/WN HEENT: normocephalic, anicteric, trach intact Cardiovascular: normal peripheral pulses, normal rate Abdomen: normal bowel sounds, no organomegaly Genitourinary: normal external genitalia Extremities: no clubbing Skin: no lesions Lymphatic: no neck adenopathy Laboratory Tests 03/12/17 05:35: White Blood Count 7.5, Red Blood Count 3.39L, Hemoglobin 10.3L, Hematocrit 31.0L , Mean Corpuscular Volume 91, Mean Corpuscular Hemoglobin 30.4, Mean Corpuscular Hemoglobin Concent 33.3, Red Cell Distribution Width 16.4H, Platelet Count 335, Mean Platelet Volume 6.5, Neutrophils (%) (Auto) 50.8, Lymphocytes (%) (Auto) 30.3, Monocytes (%) (Auto) 13.8H, Eosinophils (%) (Auto) 4.3H, Basophils (%) (Auto) 0.8, Sodium Level 140, Potassium Level 3.5, Chloride Level 102, Carbon Dioxide Level 34H, Anion Gap 4L, Blood Urea Nitrogen 11, Creatinine 1.1, Estimat Glomerular Filtration Rate , Glucose Level 128H, Calcium Level 9.6, Total Bilirubin 0.2, Aspartate Amino Transf (AST/SGOT) 19, Alanine Aminotransferase (ALT/SGPT) 9L, Alkaline Phosphatase 114, Pro-B-Type Natriuretic Peptide 385H, Total Protein 8.0, Albumin 2.2L, Globulin 5.8, Albumin /Globulin Ratio 0.4L 03/12/17 07:50: Vancomycin Level Trough 26.1H Current Medications Medications (Trade) Dose Ordered Sig/Dorie Route PRN Reason Start Time Stop Time Status Last Admin Dose Admin Acetaminophen (Tylenol) 650 mg Q4H PRN ORAL T>100.5 03/07/17 03:30 04/03/17 15:29 Cefepime HCl 2 gm/ Dextrose 55 ml @ 110 mls/hr EVERY 12 HOURS IVPB 03/08/17 21:00 03/15/17 20:59 03/12/17 09:14 Colistimethate Sodium (Colistin) 150 mg Q12HR IVP 03/07/17 09:00 03/13/17 23:59 03/12/17 10:15 Dextrose (Dextrose 50%) STAT PRN IV Hypoglycemia 03/07/17 15:30 04/03/17 15:29 Divalproex Sodium (Depakote Sprinkles) 250 mg Q12HR GT 03/07/17 09:00 04/03/17 20:59 03/12/17 09:14 Heparin Sodium (Porcine) (Heparin 5000 units/ml) 5,000 units EVERY 12 HOURS SUBQ 03/07/17 09:00 04/03/17 20:59 03/12/17 09:16 Insulin Aspart (NovoLOG) Q6HR SUBQ 03/07/17 00:00 04/03/17 20:59 03/12/17 05:53 Levetiracetam (Keppra) 500 mg Q12HR GT 03/07/17 09:00 04/03/17 20:59 03/12/17 09:13 Metronidazole (Flagyl) 500 mg EVERY 8 HOURS GT 03/07/17 22:00 03/14/17 21:59 03/12/17 05:52 Ondansetron HCl (Zofran) 4 mg Q6H PRN IVP Nausea & Vomiting 03/07/17 03:30 04/03/17 15:29 Pantoprazole (Protonix) 40 mg DAILY IV 03/07/17 09:00 04/04/17 08:59 03/12/17 09:13 Polyethylene Glycol (Miralax) 17 gm DAILYPRN PRN GT Constipation 03/07/17 18:15 04/06/17 18:14 Vancomycin HCl (Vanco rx to dose) 1 ea DAILY PRN MISC . 03/07/17 09:00 04/03/17 16:59 Vancomycin/Sodium Chloride 250 ml @ 166.667 mls/hr Q24H IVPB 03/13/17 09:00 03/18/17 08:59 BAM SCHAEFFER Mar 12, 2017 11:46
[2017-03-12 12:00] VITALS: BP 131/62
--- NOTE | 2017-03-12 13:11 | Diagnostic Imaging Report ---
Indication: Cough Technique: One view of the chest Comparison: 03/10/2017 Findings: Again demonstrated is atelectasis at the right lung base, which appears slightly increased from prior study. Retrocardiac atelectasis and consolidation persists, unchanged. Heart size is upper limits normal. Tracheostomy remains Impression: Is slight increased bibasilar atelectasis. 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
--- NOTE | 2017-03-12 15:01 | Infectious Diseases Prog Note ---
Assessment/Plan Assessment/Plan A) 1) KPC/Klebsiella uti, pseudomonas pna/providencia pna, proteus/strep/staph aureus/enterococcus sacral wound infection 2) chronic olvera 3) trach, no vent 4) sz, dm, htn, anemia, arrhythmia, af, dementia, qp, cva, weakness, dysphagia, g-tube 5) allergies - negative, fh-nc, sh-negative, mar noted, notes and records noted 6) d/w RN P) 1) vancomycin, polymyxin, cefepime and flagyl x 2 days 2) check labs and chest x-ray 3) wound care per protocol 4) continue treatment per primary and consultants 5) orders entered and noted 6) d/w Dr. Robles Subjective Constitutional: Denies: fever HEENT: Denies: congestion Respiratory: Denies: shortness of breath Cardiovascular: Reports: other - no pressors , Denies: chest pain Gastrointestinal/Abdominal: Denies: nausea, vomiting, diarrhea Genitourinary: Reports: other - + olvera Neurologic: Denies: headache Psychiatric: Denies: depression Skin: Denies: rash Hematologic: Denies: bleeding Musculoskeletal: Denies: pain Allergies: Coded Allergies: No Known Allergies (Unverified , 01/02/17) Objective Vital Signs Last 24 Hour Vital Signs Date Time Temp Pulse Resp B/P (MAP) Pulse Ox O2 Delivery O2 Flow Rate FiO2 03/12/17 12:39 Trach Collar 8.0 30 03/12/17 12:39 100 Trach Collar 8.0 30 03/12/17 12:00 98.0 64 18 131/62 99 Trach Collar 6.0 03/12/17 08:28 83 18 Trach Collar 8.0 30 03/12/17 08:28 Trach Collar 8.0 30 03/12/17 08:28 100 Trach Collar 8.0 30 03/12/17 08:00 98.4 62 17 135/59 100 Trach Collar 6.0 03/12/17 04:09 Trach Collar 30 03/12/17 04:09 99 Trach Collar 8.0 30 03/12/17 04:00 98.0 60 20 127/76 100 Room Air 03/12/17 00:00 98.3 76 18 143/79 99 T-piece 03/11/17 20:00 96.4 84 18 131/79 98 T-piece 03/11/17 19:40 71 16 Trach Collar 30 03/11/17 19:40 Trach Collar 30 03/11/17 19:40 99 Trach Collar 30 03/11/17 16:00 97.7 86 20 120/61 100 Height (Feet): 6 Height (Inches): 0.00 Weight (Pounds): 180 General Appearance: no acute distress HEENT: normocephalic, atraumatic, anicteric, supple, no JVD, status post trach Respiratory/Chest: crackles/rales - few, rhonchi - bilaterally - few Cardiovascular: normal rate, regular rhythm, no gallop/murmur, no JVD Abdomen: normal bowel sounds, soft, non tender, no organomegaly, non distended Genitourinary: other Extremities: no cyanosis Skin: no rash Neurologic/Psychiatric: motor weakness, other - lethargic, poorly responsive Lymphatic: no neck adenopathy Musculoskeletal: no effusion Objective 03/05 - chest x-ray Impression: New finding of left-sided pleural effusion Retrocardiac atelectasis and consolidation, new since previous study of 2016 Right basilar atelectasis, improved since 07/04/1703/06 - chest x-ray - Comparison: 03/04/2017 Findings: Slightly improved inspiration, with slightly decreased right basilar atelectasis. There is also decreased atelectasis at the left lung base. Tracheostomy remains. Impression: Preparation with improved bibasilar atelectasis. 03/10 - chest x-ray: Findings: Tracheostomy, bilateral basilar atelectasis, left basilar ovoid lucency , cholecystectomy clips are all unchanged. Impression: Unchanged, over 2 days, findings as above. 03/12/17- Impression: Is slight increased bibasilar atelectasis. Otherwise little manager of change 2 days, findings as noted Microbiology Date/Time Source Procedure Growth Status 03/05/17 05:50 Sputum Gram Stain - Final Complete 03/05/17 05:50 Sputum Culture - Final Pseudomonas Aeruginosa Providencia Stuartii Complete 03/04/17 17:00 Stool Clostridium difficile Toxin Assay - Final Complete 03/04/17 12:30 Urine,Clean Catch Urine Culture - Final K.pneumoniae Carbapenem Resist Complete 03/04/17 19:00 Sacral Wound Gram Stain - Final Complete 03/04/17 19:00 Wound Culture - Final Proteus Mirabilis Staphylococcus Aureus - Mrsa Enterococcus Faecalis Complete Laboratory Tests Test 03/12/17 05:35 03/12/17 07:50 White Blood Count 7.5 K/UL (4.8-10.8) Red Blood Count 3.39 M/UL (4.70-6.10) L Hemoglobin 10.3 G/DL (14.2-18.0) L Hematocrit 31.0 % (42.0-52.0) L Mean Corpuscular Volume 91 FL (80-99) Mean Corpuscular Hemoglobin 30.4 PG (27.0-31.0) Mean Corpuscular Hemoglobin Concent 33.3 G/DL (32.0-36.0) Red Cell Distribution Width 16.4 % (11.6-14.8) H Platelet Count 335 K/UL (150-450) Mean Platelet Volume 6.5 FL (6.5-10.1) Neutrophils (%) (Auto) 50.8 % (45.0-75.0) Lymphocytes (%) (Auto) 30.3 % (20.0-45.0) Monocytes (%) (Auto) 13.8 % (1.0-10.0) H Eosinophils (%) (Auto) 4.3 % (0.0-3.0) H Basophils (%) (Auto) 0.8 % (0.0-2.0) Sodium Level 140 MMOL/L (136-145) Potassium Level 3.5 MMOL/L (3.5-5.1) Chloride Level 102 MMOL/L (98-107) Carbon Dioxide Level 34 MMOL/L (21-32) H Anion Gap 4 mmol/L (5-15) L Blood Urea Nitrogen 11 mg/dL (7-18) Creatinine 1.1 MG/DL (0.55-1.30) Estimat Glomerular Filtration Rate mL/min (>60) Glucose Level 128 MG/DL (74-106) H Calcium Level 9.6 MG/DL (8.5-10.1) Total Bilirubin 0.2 MG/DL (0.2-1.0) Aspartate Amino Transf (AST/SGOT) 19 U/L (15-37) Alanine Aminotransferase (ALT/SGPT) 9 U/L (12-78) L Alkaline Phosphatase 114 U/L (46-116) Pro-B-Type Natriuretic Peptide 385 pg/mL (0-125) H Total Protein 8.0 G/DL (6.4-8.2) Albumin 2.2 G/DL (3.4-5.0) L Globulin 5.8 g/dL Albumin/Globulin Ratio 0.4 (1.0-2.7) L Vancomycin Level Trough 26.1 ug/mL (5.0-12.0) H Current Medications Medications (Trade) Dose Ordered Sig/Dorie Route PRN Reason Start Time Stop Time Status Last Admin Dose Admin Acetaminophen (Tylenol) 650 mg Q4H PRN ORAL T>100.5 03/07/17 03:30 04/03/17 15:29 Cefepime HCl 2 gm/ Dextrose 55 ml @ 110 mls/hr EVERY 12 HOURS IVPB 03/08/17 21:00 03/15/17 20:59 03/12/17 09:14 Colistimethate Sodium (Colistin) 150 mg Q12HR IVP 03/07/17 09:00 03/13/17 23:59 03/12/17 10:15 Dextrose (Dextrose 50%) STAT PRN IV Hypoglycemia 03/07/17 15:30 04/03/17 15:29 Divalproex Sodium (Depakote Sprinkles) 250 mg Q12HR GT 03/07/17 09:00 04/03/17 20:59 03/12/17 09:14 Heparin Sodium (Porcine) (Heparin 5000 units/ml) 5,000 units EVERY 12 HOURS SUBQ 03/07/17 09:00 04/03/17 20:59 03/12/17 09:16 Insulin Aspart (NovoLOG) Q6HR SUBQ 03/07/17 00:00 04/03/17 20:59 03/12/17 11:48 Levetiracetam (Keppra) 500 mg Q12HR GT 03/07/17 09:00 04/03/17 20:59 03/12/17 09:13 Metronidazole (Flagyl) 500 mg EVERY 8 HOURS GT 03/07/17 22:00 03/14/17 21:59 03/12/17 05:52 Ondansetron HCl (Zofran) 4 mg Q6H PRN IVP Nausea & Vomiting 03/07/17 03:30 04/03/17 15:29 Pantoprazole (Protonix) 40 mg DAILY IV 03/07/17 09:00 04/04/17 08:59 03/12/17 09:13 Polyethylene Glycol (Miralax) 17 gm DAILYPRN PRN GT Constipation 03/07/17 18:15 04/06/17 18:14 Vancomycin HCl (Vanco rx to dose) 1 ea DAILY PRN MISC . 03/07/17 09:00 04/03/17 16:59 Vancomycin/Sodium Chloride 250 ml @ 166.667 mls/hr Q24H IVPB 03/13/17 09:00 03/18/17 08:59 JENNIFER BEVERLY Mar 12, 2017 15:01
[2017-03-12 16:28] VITALS: BP 132/70
[2017-03-12 20:00] VITALS: BP 135/63
[2017-03-13] VITALS: BP 131/71
[2017-03-13] MEDS: NovoLOG Insulin Flexpen SUBQ SCH ×4 (00:06→17:43)
[2017-03-13 04:00] VITALS: BP 127/67
[2017-03-13] MEDS: metroNIDAZOLE 500mg tab GT SCH ×3 (05:39→21:10)
[2017-03-13 07:43] LABS: BASOPHILS % (AUTO) 1.3 % (0.0-2.0); EOSINOPHILS % (AUTO) 3.8 % (0.0-3.0); LYMPHOCYTES % (AUTO) 27.3 % (20.0-45.0); MEAN CORPUSCULAR HEMOGLOBIN 30.4 PG (27.0-31.0); MEAN CORPUSCULAR HGB CONC 33.6 G/DL (32.0-36.0); MEAN CORPUSCULAR VOLUME 91 FL (80-99); MEAN PLATELET VOLUME 6.8 FL (6.5-10.1); MONOCYTES % (AUTO) 15.3 % (1.0-10.0); NEUTROPHILS % (AUTO) 52.3 % (45.0-75.0); PLATELET COUNT 341 K/UL (150-450); RED BLOOD COUNT 3.06 M/UL (4.70-6.10); RED CELL DISTRIBUTION WIDTH 15.6 % (11.6-14.8); WHITE BLOOD COUNT 8.7 K/UL (4.8-10.8)
[2017-03-13 07:59] VITALS: BP 121/68
[2017-03-13 08:32] LABS: ALANINE AMINOTRANSFERASE 11 U/L (12-78); ALBUMIN/GLOBULIN RATIO 0.3 (1.0-2.7); ANION GAP 6 mmol/L (5-15); ASPARTATE AMINO TRANSFERASE 23 U/L (15-37); CALCIUM 9.8 MG/DL (8.5-10.1); CARBON DIOXIDE 33 MMOL/L (21-32); CHLORIDE 98 MMOL/L (98-107); CREATININE 1.1 MG/DL (0.55-1.30); MAGNESIUM 1.5 MG/DL (1.8-2.4); PHOSPHORUS 3.7 MG/DL (2.5-4.9); POTASSIUM 3.5 MMOL/L (3.5-5.1); SODIUM 137 MMOL/L (136-145); TOTAL PROTEIN 8.1 G/DL (6.4-8.2)
[2017-03-13] MEDS: Heparin 5000 units/ml inj SUBQ SCH ×2 (08:32→20:58)
[2017-03-13] MEDS: Depakote 125mg Sprinkles GT SCH ×2 (08:32→20:57)
[2017-03-13] MEDS: Cefepime 2gm in D5W 55ml IVPB SCH ×2 (08:32→20:56)
[2017-03-13] MEDS: levETIRAcetam 500mg/5ml Liquid GT SCH ×2 (08:32→20:56)
[2017-03-13] MEDS: Pantoprazole Inj IV SCH (08:33)
[2017-03-13] MEDS: Vancomycin 750mg/NS 250ml 250 ML IVPB SCH (09:19)
[2017-03-13] MEDS: Colistin 150mg vial IVP SCH ×2 (09:48→20:56)
[2017-03-13 12:00] VITALS: BP 139/72
--- NOTE | 2017-03-13 13:06 | General Progress Note ---
Assessment/Plan Problem List: (1) UTI (urinary tract infection) Assessment & Plan: 2/2 MDR Klebsiella ICD Codes: N39.0 - Urinary tract infection, site not specified SNOMED: 29791671 Qualifiers: Qualified Codes: T83.511A - Infection and inflammatory reaction due to indwelling urethral catheter, initial encounter; N39.0 - Urinary tract infection , site not specified (2) Aspiration pneumonia ICD Codes: J69.0 - Pneumonitis due to inhalation of food and vomit SNOMED: 744691804 (3) Acute toxic metabolic encephalopathy (4) Chronic respiratory failure Assessment & Plan: with hypoxia s/p tracheostomy ICD Codes: J96.10 - Chronic respiratory failure, unspecified whether with hypoxia or hypercapnia SNOMED: 71583069 (5) Paroxysmal A-fib ICD Codes: I48.0 - Paroxysmal atrial fibrillation SNOMED: 493917102 (6) Advanced dementia ICD Codes: F03.90 - Unspecified dementia without behavioral disturbance SNOMED: 48518822 (7) Functional quadriplegia ICD Codes: R53.2 - Functional quadriplegia SNOMED: 254320691811790 (8) Tracheostomy in place ICD Codes: Z93.0 - Tracheostomy status SNOMED: 012636864 (9) S/P percutaneous endoscopic gastrostomy (PEG) tube placement ICD Codes: Z93.1 - Gastrostomy status SNOMED: 249359908 (10) Anemia ICD Codes: D64.9 - Anemia, unspecified SNOMED: 728274884 Qualifiers: Qualified Codes: D64.9 - Anemia, unspecified (11) Gastritis ICD Codes: K29.70 - Gastritis, unspecified, without bleeding SNOMED: 8353282 (12) Seizure disorder ICD Codes: G40.909 - Epilepsy, unspecified, not intractable, without status epilepticus SNOMED: 133689952 (13) HTN (hypertension) ICD Codes: I10 - Essential (primary) hypertension SNOMED: 07972121 (14) Diabetes mellitus ICD Codes: E11.9 - Type 2 diabetes mellitus without complications SNOMED: 21972854 Qualifiers: Qualified Codes: E11.8 - Type 2 diabetes mellitus with unspecified complications (15) Pressure ulcer Assessment & Plan: #1 Right lateral 1st metatarsal head pressure ulcer with yellow scab adhered to wound bed #2 Right Heel unstageable pressure ulcer #3 Sacral unstageable pressure ulcer #4 Left heel DTI pressure ulcer ICD Codes: L89.90 - Pressure ulcer of unspecified site, unspecified stage SNOMED: 031597174 Status: stable Assessment/Plan Vancomycin, polymyxin, cefepime and flagyl x 1 more day per ID s/p levaquin, cefepime and amikacin in ED on 03/04 ID and pulm consulted, appreciate rec's s/p olvera exchange on 03/05/17 F/u cultures--urine cx w/ >100K Klebseilla w/ carbapenem resistance Cont O2 via trach PRN Duonebs PRN Trend CBC, BMP Cont SNF meds Supportive care Wound care CM consulted for d/c back to SNF, awaiting placement. Pt has run out of Medicare SNF days and he has no secondary insurance. He has not qualified for [facility] in past. Awaiting discussion w/ son. Consider home w/ hospice if family agrees SW consulted for possible APS DVT Prophylaxis: SCD, HSQ Code Status: Full Hospital Classification Declaration: Based on this initial evaluation, and depending on the patient's clinical course, I anticipate that this patient will require hospitalization for 1-2 days for UTI, AMS and close respiratory/ hemodynamic monitoring. Disposition: Once the patient is stable to leave the hospital, I anticipate the patient will likely be discharged to the following environment: back to SNF Discussed with patient/family, nursing staff, SW/CM, pulm, ID regarding clinical status, treatment course, and disposition planning. D/w ID re plan for abx Time of note may not reflect time of encounter. Subjective Date patient seen: Mar 13, 2017 Time patient seen: 13:06 ROS Limited/Unobtainable: Yes Allergies: Coded Allergies: No Known Allergies (Unverified , 01/02/17) Subjective No acute o/n events HDS Urine cx shows >100K Klebisella w/ carbapenem resistance Olvera exchanged on 03/06/17 A[address] placement. Spoke to pt's who deferred to son Manuelito. Left msg for Manuelito, awaiting call back Pt bedbound and nonverbal at baseline Unable to obtain ROS 2/2 dementia and pt nonverbal Objective Last 24 Hour Vital Signs Date Time Temp Pulse Resp B/P (MAP) Pulse Ox O2 Delivery O2 Flow Rate FiO2 03/13/17 12:00 97.1 60 19 139/72 100 Trach Collar 03/13/17 07:59 97.0 58 20 121/68 100 Trach Collar 03/13/17 07:55 T-piece 8.0 30 03/13/17 07:55 100 T-piece 8.0 30 03/13/17 07:55 71 20 T-piece 8.0 30 03/13/17 04:00 97.1 68 20 127/67 100 Room Air 03/13/17 01:20 T-piece 8.0 30 03/13/17 01:20 99 T-piece 8.0 30 03/13/17 00:00 97.5 55 18 131/71 100 Nasal Cannula 03/12/17 20:00 97.0 51 20 135/63 100 03/12/17 18:45 70 16 Trach Collar 8.0 30 03/12/17 18:45 100 T-piece 8.0 30 03/12/17 18:45 T-piece 8.0 30 03/12/17 16:28 97.5 54 16 132/70 100 Room Air Intake and Output 03/13/17 03/14/17 19:00 07:00 Intake Total 516.667 ml Balance 516.667 ml Intake Free Water 150 ml IV Total 276.667 ml Tube Feeding 90 ml Laboratory Tests 03/13/17 07:10: White Blood Count 8.7, Red Blood Count 3.06L, Hemoglobin 9.3L, Hematocrit 27.7L , Mean Corpuscular Volume 91, Mean Corpuscular Hemoglobin 30.4, Mean Corpuscular Hemoglobin Concent 33.6, Red Cell Distribution Width 15.6H, Platelet Count 341, Mean Platelet Volume 6.8, Neutrophils (%) (Auto) 52.3, Lymphocytes (%) (Auto) 27.3, Monocytes (%) (Auto) 15.3H, Eosinophils (%) (Auto) 3.8H, Basophils (%) (Auto) 1.3, Sodium Level 137, Potassium Level 3.5, Chloride Level 98, Carbon Dioxide Level 33H, Anion Gap 6, Blood Urea Nitrogen 13, Creatinine 1.1, Estimat Glomerular Filtration Rate , Glucose Level 156H, Calcium Level 9.8, Phosphorus Level 3.7, Magnesium Level 1.5L, Total Bilirubin 0.2, Aspartate Amino Transf (AST/SGOT) 23, Alanine Aminotransferase (ALT/SGPT) 11L, Alkaline Phosphatase 115, Total Protein 8.1, Albumin 2.1L, Globulin 6.0, Albumin/Globulin Ratio 0.3L Height (Feet): 6 Height (Inches): 0.00 Weight (Pounds): 180 Objective General: eyes closed, nonverbal, unresponsive to voice and painful stimuli Head: normocephalic, without obvious abnormality, atraumatic Eyes: conjunctivae/corneas clear. PERRL, EOM's intact Throat: lips, mucosa, and tongue normal. MMM Neck: supple, symmetrical, trachea midline, and no JVD Lungs: +rhonchi b/l, decreased breath sounds on L side Heart: regular rate and rhythm, S1, S2 normal, no murmur, click, rub or gallop Abdomen: soft, non-tender, non-distended, bowel sounds normal; no masses or organomegaly Extremities: extremities normal, atraumatic, no cyanosis or edema Pulses: 2+ and symmetric Skin: skin color, texture, turgor normal; no rashes or lesions Neurologic: unable to assess Travis Hinojosa M.D. Mar 13, 2017 13:06
[2017-03-13 16:00] VITALS: BP 138/80
--- NOTE | 2017-03-13 16:27 | Pulmonology Progress Note ---
Assessment/Plan Problems: (1) Sepsis (2) Nosocomial pneumonia (3) Anemia (4) Sacral decubitus ulcer (5) Paroxysmal a-fib (6) G tube feedings (7) Advanced dementia (8) Tracheostomy in place (9) Functional quadriplegia Assessment/Plan open eyes, comfortable continue abx, Cefepime, Colistin, Flagyl frequent suctioning tolerating feeding wound care. I discussed with the son about different options. the patient has some properties, and gets 1500 in [place]. They can't take him home and don't have the money to pay for assisted living or "usp Care all reviewed check labs in am Subjective ROS Limited/Unobtainable: No Allergies: Coded Allergies: No Known Allergies (Unverified , 01/02/17) Objective Last 24 Hour Vital Signs Date Time Temp Pulse Resp B/P (MAP) Pulse Ox O2 Delivery O2 Flow Rate FiO2 03/13/17 13:04 T-piece 8.0 30 03/13/17 13:04 100 T-piece 8.0 30 03/13/17 12:00 97.1 60 19 139/72 100 Trach Collar 03/13/17 07:59 97.0 58 20 121/68 100 Trach Collar 03/13/17 07:55 T-piece 8.0 30 03/13/17 07:55 100 T-piece 8.0 30 03/13/17 07:55 71 20 T-piece 8.0 30 03/13/17 04:00 97.1 68 20 127/67 100 Room Air 03/13/17 01:20 T-piece 8.0 30 03/13/17 01:20 99 T-piece 8.0 30 03/13/17 00:00 97.5 55 18 131/71 100 Nasal Cannula 03/12/17 20:00 97.0 51 20 135/63 100 03/12/17 18:45 70 16 Trach Collar 8.0 30 03/12/17 18:45 100 T-piece 8.0 30 03/12/17 18:45 T-piece 8.0 30 03/12/17 16:28 97.5 54 16 132/70 100 Room Air Intake and Output 03/13/17 03/14/17 19:00 07:00 Intake Total 1083.334 ml Output Total 500 ml Balance 583.334 ml Intake Free Water 300 ml IV Total 543.334 ml Tube Feeding 240 ml Output Urine Total 500 ml Objective General Appearance: WD/WN HEENT: normocephalic, anicteric, trach intact Cardiovascular: normal peripheral pulses, normal rate Abdomen: normal bowel sounds, no organomegaly Genitourinary: normal external genitalia Extremities: no clubbing Skin: no lesions Lymphatic: no neck adenopathy Laboratory Tests 03/13/17 07:10: White Blood Count 8.7, Red Blood Count 3.06L, Hemoglobin 9.3L, Hematocrit 27.7L , Mean Corpuscular Volume 91, Mean Corpuscular Hemoglobin 30.4, Mean Corpuscular Hemoglobin Concent 33.6, Red Cell Distribution Width 15.6H, Platelet Count 341, Mean Platelet Volume 6.8, Neutrophils (%) (Auto) 52.3, Lymphocytes (%) (Auto) 27.3, Monocytes (%) (Auto) 15.3H, Eosinophils (%) (Auto) 3.8H, Basophils (%) (Auto) 1.3, Sodium Level 137, Potassium Level 3.5, Chloride Level 98, Carbon Dioxide Level 33H, Anion Gap 6, Blood Urea Nitrogen 13, Creatinine 1.1, Estimat Glomerular Filtration Rate , Glucose Level 156H, Calcium Level 9.8, Phosphorus Level 3.7, Magnesium Level 1.5L, Total Bilirubin 0.2, Aspartate Amino Transf (AST/SGOT) 23, Alanine Aminotransferase (ALT/SGPT) 11L, Alkaline Phosphatase 115, Total Protein 8.1, Albumin 2.1L, Globulin 6.0, Albumin/Globulin Ratio 0.3L Current Medications Medications (Trade) Dose Ordered Sig/Dorie Route PRN Reason Start Time Stop Time Status Last Admin Dose Admin Acetaminophen (Tylenol) 650 mg Q4H PRN ORAL T>100.5 03/07/17 03:30 04/03/17 15:29 Cefepime HCl 2 gm/ Dextrose 55 ml @ 110 mls/hr EVERY 12 HOURS IVPB 03/08/17 21:00 03/15/17 20:59 03/13/17 08:32 Colistimethate Sodium (Colistin) 150 mg Q12HR IVP 03/07/17 09:00 03/13/17 23:59 03/13/17 09:48 Dextrose (Dextrose 50%) STAT PRN IV Hypoglycemia 03/07/17 15:30 04/03/17 15:29 Divalproex Sodium (Depakote Sprinkles) 250 mg Q12HR GT 03/07/17 09:00 04/03/17 20:59 03/13/17 08:32 Heparin Sodium (Porcine) (Heparin 5000 units/ml) 5,000 units EVERY 12 HOURS SUBQ 03/07/17 09:00 04/03/17 20:59 03/13/17 08:32 Insulin Aspart (NovoLOG) Q6HR SUBQ 03/07/17 00:00 04/03/17 20:59 03/13/17 11:56 Levetiracetam (Keppra) 500 mg Q12HR GT 03/07/17 09:00 04/03/17 20:59 03/13/17 08:32 Metronidazole (Flagyl) 500 mg EVERY 8 HOURS GT 03/07/17 22:00 03/14/17 21:59 03/13/17 13:18 Ondansetron HCl (Zofran) 4 mg Q6H PRN IVP Nausea & Vomiting 03/07/17 03:30 04/03/17 15:29 Pantoprazole (Protonix) 40 mg DAILY IV 03/07/17 09:00 04/04/17 08:59 03/13/17 08:33 Polyethylene Glycol (Miralax) 17 gm DAILYPRN PRN GT Constipation 03/07/17 18:15 04/06/17 18:14 Vancomycin HCl (Vanco rx to dose) 1 ea DAILY PRN MISC . 03/07/17 09:00 04/03/17 16:59 Vancomycin/Sodium Chloride 250 ml @ 166.667 mls/hr Q24H IVPB 03/13/17 09:00 03/18/17 08:59 03/13/17 09:19 BAM SCHAEFFER Mar 13, 2017 16:27
--- NOTE | 2017-03-13 19:04 | Infectious Diseases Prog Note ---
Assessment/Plan Assessment/Plan A) 1) KPC/Klebsiella uti, pseudomonas pna/providencia pna, proteus/strep/staph aureus/enterococcus sacral wound infection 2) chronic olvera 3) trach, no vent 4) sz, dm, htn, anemia, arrhythmia, af, dementia, qp, cva, weakness, dysphagia, g-tube 5) allergies - negative, fh-nc, sh-negative, mar noted, notes and records noted 6) d/w RN P) 1) vancomycin, polymyxin, cefepime and flagyl x 1 day 2) check labs and chest x-ray 3) wound care per protocol 4) continue treatment per primary and consultants 5) orders entered and noted 6) d/w Dr. Robles Subjective Constitutional: Denies: fever HEENT: Denies: congestion Respiratory: Denies: shortness of breath Cardiovascular: Denies: chest pain Gastrointestinal/Abdominal: Denies: nausea, vomiting, diarrhea Genitourinary: Reports: other - + olvera Neurologic: Denies: headache Psychiatric: Denies: depression Skin: Denies: rash Hematologic: Denies: bleeding Musculoskeletal: Denies: pain Allergies: Coded Allergies: No Known Allergies (Unverified , 01/02/17) Objective Vital Signs Last 24 Hour Vital Signs Date Time Temp Pulse Resp B/P (MAP) Pulse Ox O2 Delivery O2 Flow Rate FiO2 03/13/17 16:00 97.9 58 19 138/80 100 Trach Collar 03/13/17 13:04 T-piece 8.0 30 03/13/17 13:04 100 T-piece 8.0 30 03/13/17 12:00 97.1 60 19 139/72 100 Trach Collar 03/13/17 07:59 97.0 58 20 121/68 100 Trach Collar 03/13/17 07:55 T-piece 8.0 30 03/13/17 07:55 100 T-piece 8.0 30 03/13/17 07:55 71 20 T-piece 8.0 30 03/13/17 04:00 97.1 68 20 127/67 100 Room Air 03/13/17 01:20 T-piece 8.0 30 03/13/17 01:20 99 T-piece 8.0 30 03/13/17 00:00 97.5 55 18 131/71 100 Nasal Cannula 03/12/17 20:00 97.0 51 20 135/63 100 Height (Feet): 6 Height (Inches): 0.00 Weight (Pounds): 180 General Appearance: no acute distress HEENT: normocephalic, atraumatic, anicteric, mucous membranes moist, no JVD, status post trach Respiratory/Chest: crackles/rales - few, rhonchi - bilaterally - few Cardiovascular: normal rate, regular rhythm, no gallop/murmur, no JVD Abdomen: normal bowel sounds, soft, non tender, no organomegaly, non distended Genitourinary: other - + condom catheter - urine slt cloudy Extremities: no cyanosis Skin: no rash Neurologic/Psychiatric: 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 There is also decreased atelectasis at the left lung base. Tracheostomy remains. Impression: Preparation with improved bibasilar atelectasis. 03/10 - chest x-ray: Findings: Tracheostomy, bilateral basilar atelectasis, left basilar ovoid lucency , cholecystectomy clips are all unchanged. Impression: Unchanged, over 2 days, findings as above. 03/12/17- Impression: Is slight increased bibasilar atelectasis. 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, findings as noted Microbiology Date/Time Source Procedure Growth Status 03/05/17 05:50 Sputum Gram Stain - Final Complete 03/05/17 05:50 Sputum Culture - Final Pseudomonas Aeruginosa Providencia Stuartii Complete 03/04/17 17:00 Stool Clostridium difficile Toxin Assay - Final Complete 03/04/17 12:30 Urine,Clean Catch Urine Culture - Final K.pneumoniae Carbapenem Resist Complete 03/04/17 19:00 Sacral Wound Gram Stain - Final Complete 03/04/17 19:00 Wound Culture - Final Proteus Mirabilis Staphylococcus Aureus - Mrsa Enterococcus Faecalis Complete Laboratory Tests Test 03/13/17 07:10 White Blood Count 8.7 K/UL (4.8-10.8) Red Blood Count 3.06 M/UL (4.70-6.10) L Hemoglobin 9.3 G/DL (14.2-18.0) L Hematocrit 27.7 % (42.0-52.0) L Mean Corpuscular Volume 91 FL (80-99) Mean Corpuscular Hemoglobin 30.4 PG (27.0-31.0) Mean Corpuscular Hemoglobin Concent 33.6 G/DL (32.0-36.0) Red Cell Distribution Width 15.6 % (11.6-14.8) H Platelet Count 341 K/UL (150-450) Mean Platelet Volume 6.8 FL (6.5-10.1) Neutrophils (%) (Auto) 52.3 % (45.0-75.0) Lymphocytes (%) (Auto) 27.3 % (20.0-45.0) Monocytes (%) (Auto) 15.3 % (1.0-10.0) H Eosinophils (%) (Auto) 3.8 % (0.0-3.0) H Basophils (%) (Auto) 1.3 % (0.0-2.0) Sodium Level 137 MMOL/L (136-145) Potassium Level 3.5 MMOL/L (3.5-5.1) Chloride Level 98 MMOL/L (98-107) Carbon Dioxide Level 33 MMOL/L (21-32) H Anion Gap 6 mmol/L (5-15) Blood Urea Nitrogen 13 mg/dL (7-18) Creatinine 1.1 MG/DL (0.55-1.30) Estimat Glomerular Filtration Rate mL/min (>60) Glucose Level 156 MG/DL (74-106) H Calcium Level 9.8 MG/DL (8.5-10.1) Phosphorus Level 3.7 MG/DL (2.5-4.9) Magnesium Level 1.5 MG/DL (1.8-2.4) L Total Bilirubin 0.2 MG/DL (0.2-1.0) Aspartate Amino Transf (AST/SGOT) 23 U/L (15-37) Alanine Aminotransferase (ALT/SGPT) 11 U/L (12-78) L Alkaline Phosphatase 115 U/L (46-116) Total Protein 8.1 G/DL (6.4-8.2) Albumin 2.1 G/DL (3.4-5.0) L Globulin 6.0 g/dL Albumin/Globulin Ratio 0.3 (1.0-2.7) L Current Medications Medications (Trade) Dose Ordered Sig/Dorie Route PRN Reason Start Time Stop Time Status Last Admin Dose Admin Acetaminophen (Tylenol) 650 mg Q4H PRN ORAL T>100.5 03/07/17 03:30 04/03/17 15:29 Cefepime HCl 2 gm/ Dextrose 55 ml @ 110 mls/hr EVERY 12 HOURS IVPB 03/08/17 21:00 03/15/17 20:59 03/13/17 08:32 Colistimethate Sodium (Colistin) 150 mg Q12HR IVP 03/07/17 09:00 03/13/17 23:59 03/13/17 09:48 Dextrose (Dextrose 50%) STAT PRN IV Hypoglycemia 03/07/17 15:30 04/03/17 15:29 Divalproex Sodium (Depakote Sprinkles) 250 mg Q12HR GT 03/07/17 09:00 04/03/17 20:59 03/13/17 08:32 Heparin Sodium (Porcine) (Heparin 5000 units/ml) 5,000 units EVERY 12 HOURS SUBQ 03/07/17 09:00 04/03/17 20:59 03/13/17 08:32 Insulin Aspart (NovoLOG) Q6HR SUBQ 03/07/17 00:00 04/03/17 20:59 03/13/17 17:43 Levetiracetam (Keppra) 500 mg Q12HR GT 03/07/17 09:00 04/03/17 20:59 03/13/17 08:32 Metronidazole (Flagyl) 500 mg EVERY 8 HOURS GT 03/07/17 22:00 03/14/17 21:59 03/13/17 13:18 Ondansetron HCl (Zofran) 4 mg Q6H PRN IVP Nausea & Vomiting 03/07/17 03:30 04/03/17 15:29 Pantoprazole (Protonix) 40 mg DAILY IV 03/07/17 09:00 04/04/17 08:59 03/13/17 08:33 Polyethylene Glycol (Miralax) 17 gm DAILYPRN PRN GT Constipation 03/07/17 18:15 04/06/17 18:14 Vancomycin HCl (Vanco rx to dose) 1 ea DAILY PRN MISC . 03/07/17 09:00 04/03/17 16:59 Vancomycin/Sodium Chloride 250 ml @ 166.667 mls/hr Q24H IVPB 03/13/17 09:00 03/18/17 08:59 03/13/17 09:19 JENNIFER BEVERLY Mar 13, 2017 19:04
[2017-03-13 20:00] VITALS: BP 117/56
[2017-03-14] VITALS: BP 108/65
[2017-03-14] MEDS: NovoLOG Insulin Flexpen SUBQ SCH ×4 (00:38→18:04)
[2017-03-14 04:21] VITALS: BP 127/75
[2017-03-14] MEDS: metroNIDAZOLE 500mg tab GT SCH ×2 (05:54→14:20)
[2017-03-14 08:00] VITALS: BP 125/68
[2017-03-14 08:30] LABS: EOSINOPHILS % (AUTO) 2.9 % (0.0-3.0); LYMPHOCYTES % (AUTO) 24.8 % (20.0-45.0); MEAN CORPUSCULAR HEMOGLOBIN 29.3 PG (27.0-31.0); MEAN CORPUSCULAR HGB CONC 32.2 G/DL (32.0-36.0); MEAN CORPUSCULAR VOLUME 91 FL (80-99); MEAN PLATELET VOLUME 6.5 FL (6.5-10.1); MONOCYTES % (AUTO) 11.8 % (1.0-10.0); NEUTROPHILS % (AUTO) 59.5 % (45.0-75.0); PLATELET COUNT 339 K/UL (150-450); RED BLOOD COUNT 3.61 M/UL (4.70-6.10); RED CELL DISTRIBUTION WIDTH 15.7 % (11.6-14.8); WHITE BLOOD COUNT 8.5 K/UL (4.8-10.8)
[2017-03-14 08:58] LABS: ALANINE AMINOTRANSFERASE 14 U/L (12-78); ALBUMIN/GLOBULIN RATIO 0.4 (1.0-2.7); ANION GAP 6 mmol/L (5-15); ASPARTATE AMINO TRANSFERASE 22 U/L (15-37); CARBON DIOXIDE 35 MMOL/L (21-32); CHLORIDE 96 MMOL/L (98-107); CREATININE 1.3 MG/DL (0.55-1.30); CRP QUANT 5.5 mg/dL (0.00-0.90); MAGNESIUM 1.9 MG/DL (1.8-2.4); PHOSPHORUS 3.9 MG/DL (2.5-4.9); POTASSIUM 3.4 MMOL/L (3.5-5.1); SODIUM 137 MMOL/L (136-145); TOTAL PROTEIN 8.4 G/DL (6.4-8.2)
[2017-03-14] MEDS: Cefepime 2gm in D5W 55ml IVPB SCH (09:24)
[2017-03-14] MEDS: Depakote 125mg Sprinkles GT SCH ×2 (09:25→20:57)
[2017-03-14] MEDS: levETIRAcetam 500mg/5ml Liquid GT SCH ×2 (09:25→20:56)
[2017-03-14] MEDS: Pantoprazole Inj IV SCH (09:25)
[2017-03-14] MEDS: Heparin 5000 units/ml inj SUBQ SCH ×2 (09:27→20:59)
[2017-03-14 10:13] LABS: ERYTHROCYTE SEDIMENTATION RATE 99 MM/HR (0-30)
[2017-03-14] MEDS: Vancomycin 750mg/NS 250ml 250 ML IVPB SCH (11:02)
[2017-03-14 12:00] VITALS: BP 140/77
--- NOTE | 2017-03-14 13:09 | General Progress Note ---
Assessment/Plan Problem List: (1) UTI (urinary tract infection) Assessment & Plan: 2/2 MDR Klebsiella ICD Codes: N39.0 - Urinary tract infection, site not specified SNOMED: 87620149 Qualifiers: Qualified Codes: T83.511A - Infection and inflammatory reaction due to indwelling urethral catheter, initial encounter; N39.0 - Urinary tract infection , site not specified (2) Aspiration pneumonia ICD Codes: J69.0 - Pneumonitis due to inhalation of food and vomit SNOMED: 392307194 (3) Acute toxic metabolic encephalopathy (4) Chronic respiratory failure Assessment & Plan: with hypoxia s/p tracheostomy ICD Codes: J96.10 - Chronic respiratory failure, unspecified whether with hypoxia or hypercapnia SNOMED: 13947554 (5) Paroxysmal A-fib ICD Codes: I48.0 - Paroxysmal atrial fibrillation SNOMED: 451223050 (6) Advanced dementia ICD Codes: F03.90 - Unspecified dementia without behavioral disturbance SNOMED: 06777808 (7) Functional quadriplegia ICD Codes: R53.2 - Functional quadriplegia SNOMED: 561725550070240 (8) Tracheostomy in place ICD Codes: Z93.0 - Tracheostomy status SNOMED: 833341132 (9) S/P percutaneous endoscopic gastrostomy (PEG) tube placement ICD Codes: Z93.1 - Gastrostomy status SNOMED: 248598181 (10) Anemia ICD Codes: D64.9 - Anemia, unspecified SNOMED: 883867721 Qualifiers: Qualified Codes: D64.9 - Anemia, unspecified (11) Gastritis ICD Codes: K29.70 - Gastritis, unspecified, without bleeding SNOMED: 4277469 (12) Seizure disorder ICD Codes: G40.909 - Epilepsy, unspecified, not intractable, without status epilepticus SNOMED: 179887135 (13) HTN (hypertension) ICD Codes: I10 - Essential (primary) hypertension SNOMED: 15577961 (14) Diabetes mellitus ICD Codes: E11.9 - Type 2 diabetes mellitus without complications SNOMED: 69390009 Qualifiers: Qualified Codes: E11.8 - Type 2 diabetes mellitus with unspecified complications (15) Pressure ulcer Assessment & Plan: #1 Right lateral 1st metatarsal head pressure ulcer with yellow scab adhered to wound bed #2 Right Heel unstageable pressure ulcer #3 Sacral unstageable pressure ulcer #4 Left heel DTI pressure ulcer ICD Codes: L89.90 - Pressure ulcer of unspecified site, unspecified stage SNOMED: 505573885 Status: stable Assessment/Plan Vancomycin, polymyxin, cefepime and flagyl per ID s/p levaquin, cefepime and amikacin in ED on 03/04 ID and pulm consulted, appreciate rec's s/p olvera exchange on 03/05/17 F/u cultures--urine cx w/ >100K Klebseilla w/ carbapenem resistance Cont O2 via trach PRN Duonebs PRN Trend CBC, BMP Cont SNF meds Supportive care Wound care CM consulted for d/c back to SNF, awaiting placement. Pt has run out of Medicare SNF days and he has no secondary insurance. He has not qualified for [facility] in past. Awaiting discussion w/ son. Consider home w/ hospice if family agrees SW consulted for possible APS DVT Prophylaxis: SCD, HSQ Code Status: Full Hospital Classification Declaration: Based on this initial evaluation, and depending on the patient's clinical course, I anticipate that this patient will require hospitalization for 1-2 days for UTI, AMS and close respiratory/ hemodynamic monitoring. Disposition: Once the patient is stable to leave the hospital, I anticipate the patient will likely be discharged to the following environment: back to SNF Discussed with patient/family, nursing staff, SW/CM, pulm, ID regarding clinical status, treatment course, and disposition planning. D/w ID re plan for abx Time of note may not reflect time of encounter. Subjective Date patient seen: Mar 14, 2017 Time patient seen: 13:00 ROS Limited/Unobtainable: No Constitutional: Reports: no symptoms HEENT: Reports: no symptoms Cardiovascular: Reports: no symptoms Respiratory: Reports: no symptoms Gastrointestinal/Abdominal: Reports: no symptoms Neurologic/Psychiatric: Reports: no symptoms Endocrine: Reports: no symptoms Hematologic/Lymphatic: Reports: no symptoms Allergies: Coded Allergies: No Known Allergies (Unverified , 01/02/17) All Systems: reviewed and negative except above Subjective No acute o/n events HDS Urine cx shows >100K Klebisella w/ carbapenem resistance Olvera exchanged on 03/06/17 Awaiting placement. Spoke to pt's who deferred to son Manuelito. Left ms for Manuelito, awaiting call back Pt bedbound and nonverbal at baseline Unable to obtain ROS 2/2 dementia and pt nonverbal Objective Last 24 Hour Vital Signs Date Time Temp Pulse Resp B/P (MAP) Pulse Ox O2 Delivery O2 Flow Rate FiO2 03/14/17 12:00 97.3 79 18 140/77 100 T-piece 03/14/17 08:09 T-piece 8.0 30 03/14/17 08:09 100 Trach Collar 8.0 30 03/14/17 08:08 90 18 T-piece 8.0 30 03/14/17 08:00 97.5 80 17 125/68 100 T-piece 8.0 03/14/17 04:24 T-piece 03/14/17 04:21 97.6 91 18 127/75 99 03/14/17 01:22 Trach Collar 8.0 30 03/14/17 01:22 99 Trach Collar 8.0 30 03/14/17 00:00 97.9 82 21 108/65 100 T-piece 03/13/17 20:00 T-piece 03/13/17 20:00 97.3 89 20 117/56 100 T-piece 30 03/13/17 19:59 68 18 Trach Collar 8.0 30 03/13/17 19:59 Trach Collar 8.0 30 03/13/17 19:59 99 Trach Collar 8.0 30 03/13/17 16:00 97.9 58 19 138/80 100 Trach Collar Intake and Output 03/14/17 03/15/17 19:00 07:00 Intake Total 605.000 ml Balance 605.000 ml Intake Free Water 150 ml IV Total 305.000 ml Tube Feeding 150 ml Laboratory Tests 03/14/17 08:05: White Blood Count 8.5, Red Blood Count 3.61L, Hemoglobin 10.6L, Hematocrit 32.7L , Mean Corpuscular Volume 91, Mean Corpuscular Hemoglobin 29.3, Mean Corpuscular Hemoglobin Concent 32.2, Red Cell Distribution Width 15.7H, Platelet Count 339, Mean Platelet Volume 6.5, Neutrophils (%) (Auto) 59.5, Lymphocytes (%) (Auto) 24.8, Monocytes (%) (Auto) 11.8H, Eosinophils (%) (Auto) 2.9, Basophils (%) (Auto) 1.0, Erythrocyte Sedimentation Rate 99H, Sodium Level 137, Potassium Level 3.4L, Chloride Level 96L, Carbon Dioxide Level 35H, Anion Gap 6, Blood Urea Nitrogen 15, Creatinine 1.3, Estimat Glomerular Filtration Rate , Glucose Level 149H, Calcium Level 10.0, Phosphorus Level 3.9, Magnesium Level 1.9, Total Bilirubin 0.2, Aspartate Amino Transf (AST/SGOT) 22, Alanine Aminotransferase (ALT/SGPT) 14, Alkaline Phosphatase 119H, C-Reactive Protein, Quantitative 5.5H, Total Protein 8.4H, Albumin 2.3L, Globulin 6.1, Albumin/ Globulin Ratio 0.4L Height (Feet): 6 Height (Inches): 0.00 Weight (Pounds): 180 Objective General: eyes closed, nonverbal, unresponsive to voice and painful stimuli Head: normocephalic, without obvious abnormality, atraumatic Eyes: conjunctivae/corneas clear. PERRL, EOM's intact Throat: lips, mucosa, and tongue normal. MMM Neck: supple, symmetrical, trachea midline, and no JVD Lungs: +rhonchi b/l, decreased breath sounds on L side Heart: regular rate and rhythm, S1, S2 normal, no murmur, click, rub or gallop Abdomen: soft, non-tender, non-distended, bowel sounds normal; no masses or organomegaly Extremities: extremities normal, atraumatic, no cyanosis or edema Pulses: 2+ and symmetric Skin: skin color, texture, turgor normal; no rashes or lesions Neurologic: unable to assess Travis Hinojosa M.D. Mar 14, 2017 13:09
--- NOTE | 2017-03-14 14:25 | Pulmonology Progress Note ---
Assessment/Plan Problems: (1) Sepsis (2) Nosocomial pneumonia (3) Anemia (4) Sacral decubitus ulcer (5) Paroxysmal a-fib (6) G tube feedings (7) Advanced dementia (8) Tracheostomy in place (9) Functional quadriplegia Assessment/Plan somnolent, comfortable continue abx, Cefepime, Colistin, Flagyl frequent suctioning tolerating feeding wound care. I discussed with the son about different options. the patient has some properties, and gets 1500 in [place]. They can't take him home and don't have the money to pay for assisted living or "retirement Care all reviewed check labs in am Subjective ROS Limited/Unobtainable: Yes Constitutional: Reports: no symptoms HEENT: Repors: no symptoms Respiratory: Reports: no symptoms Allergies: Coded Allergies: No Known Allergies (Unverified , 01/02/17) Objective Last 24 Hour Vital Signs Date Time Temp Pulse Resp B/P (MAP) Pulse Ox O2 Delivery O2 Flow Rate FiO2 03/14/17 13:37 100 Trach Collar 8.0 30 03/14/17 13:37 T-piece 8.0 30 03/14/17 12:00 97.3 79 18 140/77 100 T-piece 03/14/17 08:09 T-piece 8.0 30 03/14/17 08:09 100 Trach Collar 8.0 30 03/14/17 08:08 90 18 T-piece 8.0 30 03/14/17 08:00 97.5 80 17 125/68 100 T-piece 8.0 03/14/17 04:24 T-piece 03/14/17 04:21 97.6 91 18 127/75 99 03/14/17 01:22 Trach Collar 8.0 30 03/14/17 01:22 99 Trach Collar 8.0 30 03/14/17 00:00 97.9 82 21 108/65 100 T-piece 03/13/17 20:00 T-piece 03/13/17 20:00 97.3 89 20 117/56 100 T-piece 30 03/13/17 19:59 68 18 Trach Collar 8.0 30 03/13/17 19:59 Trach Collar 8.0 30 03/13/17 19:59 99 Trach Collar 8.0 30 03/13/17 16:00 97.9 58 19 138/80 100 Trach Collar Intake and Output 03/14/17 03/15/17 19:00 07:00 Intake Total 605.000 ml Balance 605.000 ml Intake Free Water 150 ml IV Total 305.000 ml Tube Feeding 150 ml Objective General Appearance: WD/WN HEENT: normocephalic, anicteric, trach intact Cardiovascular: normal peripheral pulses, normal rate Abdomen: normal bowel sounds, no organomegaly Genitourinary: normal external genitalia Extremities: no clubbing Skin: no lesions Lymphatic: no neck adenopathy Laboratory Tests 03/14/17 08:05: White Blood Count 8.5, Red Blood Count 3.61L, Hemoglobin 10.6L, Hematocrit 32.7L , Mean Corpuscular Volume 91, Mean Corpuscular Hemoglobin 29.3, Mean Corpuscular Hemoglobin Concent 32.2, Red Cell Distribution Width 15.7H, Platelet Count 339, Mean Platelet Volume 6.5, Neutrophils (%) (Auto) 59.5, Lymphocytes (%) (Auto) 24.8, Monocytes (%) (Auto) 11.8H, Eosinophils (%) (Auto) 2.9, Basophils (%) (Auto) 1.0, Erythrocyte Sedimentation Rate 99H, Sodium Level 137, Potassium Level 3.4L, Chloride Level 96L, Carbon Dioxide Level 35H, Anion Gap 6, Blood Urea Nitrogen 15, Creatinine 1.3, Estimat Glomerular Filtration Rate , Glucose Level 149H, Calcium Level 10.0, Phosphorus Level 3.9, Magnesium Level 1.9, Total Bilirubin 0.2, Aspartate Amino Transf (AST/SGOT) 22, Alanine Aminotransferase (ALT/SGPT) 14, Alkaline Phosphatase 119H, C-Reactive Protein, Quantitative 5.5H, Total Protein 8.4H, Albumin 2.3L, Globulin 6.1, Albumin/ Globulin Ratio 0.4L Current Medications Medications (Trade) Dose Ordered Sig/Dorie Route PRN Reason Start Time Stop Time Status Last Admin Dose Admin Acetaminophen (Tylenol) 650 mg Q4H PRN ORAL T>100.5 03/07/17 03:30 04/03/17 15:29 Cefepime HCl 2 gm/ Dextrose 55 ml @ 110 mls/hr EVERY 12 HOURS IVPB 03/08/17 21:00 03/15/17 20:59 03/14/17 09:24 Dextrose (Dextrose 50%) STAT PRN IV Hypoglycemia 03/07/17 15:30 04/03/17 15:29 Divalproex Sodium (Depakote Sprinkles) 250 mg Q12HR GT 03/07/17 09:00 04/03/17 20:59 03/14/17 09:25 Heparin Sodium (Porcine) (Heparin 5000 units/ml) 5,000 units EVERY 12 HOURS SUBQ 03/07/17 09:00 04/03/17 20:59 03/14/17 09:27 Insulin Aspart (NovoLOG) Q6HR SUBQ 03/07/17 00:00 04/03/17 20:59 03/14/17 12:57 Levetiracetam (Keppra) 500 mg Q12HR GT 03/07/17 09:00 04/03/17 20:59 03/14/17 09:25 Metronidazole (Flagyl) 500 mg EVERY 8 HOURS GT 03/07/17 22:00 03/14/17 21:59 03/14/17 14:20 Ondansetron HCl (Zofran) 4 mg Q6H PRN IVP Nausea & Vomiting 03/07/17 03:30 04/03/17 15:29 Pantoprazole (Protonix) 40 mg DAILY IV 03/07/17 09:00 04/04/17 08:59 03/14/17 09:25 Polyethylene Glycol (Miralax) 17 gm DAILYPRN PRN GT Constipation 03/07/17 18:15 04/06/17 18:14 Vancomycin HCl (Vanco rx to dose) 1 ea DAILY PRN MISC . 03/07/17 09:00 04/03/17 16:59 Vancomycin/Sodium Chloride 250 ml @ 166.667 mls/hr Q24H IVPB 03/13/17 09:00 03/18/17 08:59 03/14/17 11:02 BAM SCHAEFFER Mar 14, 2017 14:25
[2017-03-14 16:00] VITALS: BP 152/64
--- NOTE | 2017-03-14 17:56 | Infectious Diseases Prog Note ---
Assessment/Plan Assessment/Plan A) 1) KPC/Klebsiella uti, pseudomonas pna/providencia pna, proteus/strep/staph aureus/enterococcus sacral wound infection 2) chronic olvera 3) trach, no vent 4) sz, dm, htn, anemia, arrhythmia, af, dementia, qp, cva, weakness, dysphagia, g-tube 5) allergies - negative, fh-nc, sh-negative, mar noted, notes and records noted 6) d/w RN P) 1) vancomycin, polymyxin, cefepime and flagyl - finish course 2) check labs and chest x-ray 3) wound care per protocol 4) continue treatment per primary and consultants 5) orders entered and noted Subjective Constitutional: Denies: fever HEENT: Denies: congestion Respiratory: Denies: shortness of breath Cardiovascular: Denies: chest pain Gastrointestinal/Abdominal: Denies: nausea, vomiting, diarrhea Genitourinary: Reports: other - + condom catheter Neurologic: Reports: weakness, other - no sz Psychiatric: Reports: no symptoms Skin: Denies: rash Hematologic: Reports: other - weak Allergies: Coded Allergies: No Known Allergies (Unverified , 01/02/17) Objective Vital Signs Last 24 Hour Vital Signs Date Time Temp Pulse Resp B/P (MAP) Pulse Ox O2 Delivery O2 Flow Rate FiO2 03/14/17 16:00 97.7 64 18 152/64 100 T-piece 8.0 03/14/17 13:37 100 Trach Collar 8.0 30 03/14/17 13:37 T-piece 8.0 30 03/14/17 12:00 97.3 79 18 140/77 100 T-piece 03/14/17 08:09 T-piece 8.0 30 03/14/17 08:09 100 Trach Collar 8.0 30 03/14/17 08:08 90 18 T-piece 8.0 30 03/14/17 08:00 97.5 80 17 125/68 100 T-piece 8.0 03/14/17 04:24 T-piece 03/14/17 04:21 97.6 91 18 127/75 99 03/14/17 01:22 Trach Collar 8.0 30 03/14/17 01:22 99 Trach Collar 8.0 30 03/14/17 00:00 97.9 82 21 108/65 100 T-piece 03/13/17 20:00 T-piece 03/13/17 20:00 97.3 89 20 117/56 100 T-piece 30 03/13/17 19:59 68 18 Trach Collar 8.0 30 03/13/17 19:59 Trach Collar 8.0 30 03/13/17 19:59 99 Trach Collar 8.0 30 Height (Feet): 6 Height (Inches): 0.00 Weight (Pounds): 180 General Appearance: no acute distress HEENT: normocephalic, atraumatic, anicteric, no JVD, status post trach Respiratory/Chest: crackles/rales - few, rhonchi - bilaterally - few Cardiovascular: normal rate, regular rhythm Abdomen: normal bowel sounds, soft, non tender, no organomegaly Genitourinary: other - + condom cath - urine clear Extremities: no cyanosis Skin: no rash Neurologic/Psychiatric: motor weakness, other - lethargic Lymphatic: no neck adenopathy Musculoskeletal: no effusion Objective 03/05 - chest x-ray Impression: New finding of left-sided pleural effusion Retrocardiac atelectasis and consolidation, new since previous study of 2016 Right basilar atelectasis, improved since 07/04/1703/06 - chest x-ray - Comparison: 03/04/2017 Findings: Slightly improved inspiration, with slightly decreased right basilar atelectasis. There is also decreased atelectasis at the left lung base. Tracheostomy remains. Impression: Preparation with improved bibasilar atelectasis. 03/10 - chest x-ray: Findings: Tracheostomy, bilateral basilar atelectasis, left basilar ovoid lucency , cholecystectomy clips are all unchanged. Impression: Unchanged, over 2 days, findings as above. 03/12/17- Impression: Is slight increased bibasilar atelectasis. Otherwise little belt changer 2 days, findings as noted Microbiology Date/Time Source Procedure Growth Status 03/05/17 05:50 Sputum Gram Stain - Final Complete 03/05/17 05:50 Sputum Culture - Final Pseudomonas Aeruginosa Providencia Stuartii Complete 03/04/17 17:00 Stool Clostridium difficile Toxin Assay - Final Complete 03/04/17 12:30 Urine,Clean Catch Urine Culture - Final K.pneumoniae Carbapenem Resist Complete 03/04/17 19:00 Sacral Wound Gram Stain - Final Complete 03/04/17 19:00 Wound Culture - Final Proteus Mirabilis Staphylococcus Aureus - Mrsa Enterococcus Faecalis Complete Laboratory Tests Test 03/14/17 08:05 White Blood Count 8.5 K/UL (4.8-10.8) Red Blood Count 3.61 M/UL (4.70-6.10) L Hemoglobin 10.6 G/DL (14.2-18.0) L Hematocrit 32.7 % (42.0-52.0) L Mean Corpuscular Volume 91 FL (80-99) Mean Corpuscular Hemoglobin 29.3 PG (27.0-31.0) Mean Corpuscular Hemoglobin Concent 32.2 G/DL (32.0-36.0) Red Cell Distribution Width 15.7 % (11.6-14.8) H Platelet Count 339 K/UL (150-450) Mean Platelet Volume 6.5 FL (6.5-10.1) Neutrophils (%) (Auto) 59.5 % (45.0-75.0) Lymphocytes (%) (Auto) 24.8 % (20.0-45.0) Monocytes (%) (Auto) 11.8 % (1.0-10.0) H Eosinophils (%) (Auto) 2.9 % (0.0-3.0) Basophils (%) (Auto) 1.0 % (0.0-2.0) Erythrocyte Sedimentation Rate 99 MM/HR (0-30) H Sodium Level 137 MMOL/L (136-145) Potassium Level 3.4 MMOL/L (3.5-5.1) L Chloride Level 96 MMOL/L (98-107) L Carbon Dioxide Level 35 MMOL/L (21-32) H Anion Gap 6 mmol/L (5-15) Blood Urea Nitrogen 15 mg/dL (7-18) Creatinine 1.3 MG/DL (0.55-1.30) Estimat Glomerular Filtration Rate mL/min (>60) Glucose Level 149 MG/DL (74-106) H Calcium Level 10.0 MG/DL (8.5-10.1) Phosphorus Level 3.9 MG/DL (2.5-4.9) Magnesium Level 1.9 MG/DL (1.8-2.4) Total Bilirubin 0.2 MG/DL (0.2-1.0) Aspartate Amino Transf (AST/SGOT) 22 U/L (15-37) Alanine Aminotransferase (ALT/SGPT) 14 U/L (12-78) Alkaline Phosphatase 119 U/L (46-116) H C-Reactive Protein, Quantitative 5.5 mg/dL (0.00-0.90) H Total Protein 8.4 G/DL (6.4-8.2) H Albumin 2.3 G/DL (3.4-5.0) L Globulin 6.1 g/dL Albumin/Globulin Ratio 0.4 (1.0-2.7) L Current Medications Medications (Trade) Dose Ordered Sig/Dorie Route PRN Reason Start Time Stop Time Status Last Admin Dose Admin Acetaminophen (Tylenol) 650 mg Q4H PRN ORAL T>100.5 03/07/17 03:30 04/03/17 15:29 Cefepime HCl 2 gm/ Dextrose 55 ml @ 110 mls/hr EVERY 12 HOURS IVPB 03/08/17 21:00 03/15/17 20:59 03/14/17 09:24 Dextrose (Dextrose 50%) STAT PRN IV Hypoglycemia 03/07/17 15:30 04/03/17 15:29 Divalproex Sodium (Depakote Sprinkles) 250 mg Q12HR GT 03/07/17 09:00 04/03/17 20:59 03/14/17 09:25 Heparin Sodium (Porcine) (Heparin 5000 units/ml) 5,000 units EVERY 12 HOURS SUBQ 03/07/17 09:00 04/03/17 20:59 03/14/17 09:27 Insulin Aspart (NovoLOG) Q6HR SUBQ 03/07/17 00:00 04/03/17 20:59 03/14/17 12:57 Levetiracetam (Keppra) 500 mg Q12HR GT 03/07/17 09:00 04/03/17 20:59 03/14/17 09:25 Metronidazole (Flagyl) 500 mg EVERY 8 HOURS GT 03/07/17 22:00 03/14/17 21:59 03/14/17 14:20 Ondansetron HCl (Zofran) 4 mg Q6H PRN IVP Nausea & Vomiting 03/07/17 03:30 04/03/17 15:29 Pantoprazole (Protonix) 40 mg DAILY IV 03/07/17 09:00 04/04/17 08:59 03/14/17 09:25 Polyethylene Glycol (Miralax) 17 gm DAILYPRN PRN GT Constipation 03/07/17 18:15 04/06/17 18:14 Vancomycin HCl (Vanco rx to dose) 1 ea DAILY PRN MISC . 03/07/17 09:00 04/03/17 16:59 Vancomycin/Sodium Chloride 250 ml @ 166.667 mls/hr Q24H IVPB 03/13/17 09:00 03/18/17 08:59 03/14/17 11:02 JENNIFER BEVERLY Mar 14, 2017 17:56
[2017-03-14 20:18] VITALS: BP 111/60
[2017-03-15 00:09] VITALS: BP 112/67
[2017-03-15] MEDS: NovoLOG Insulin Flexpen SUBQ SCH ×4 (01:00→17:47)
[2017-03-15 04:00] VITALS: BP 138/85
[2017-03-15] MEDS: levETIRAcetam 500mg/5ml Liquid GT SCH ×2 (08:54→20:37)
[2017-03-15] MEDS: Depakote 125mg Sprinkles GT SCH ×2 (08:55→20:37)
[2017-03-15] MEDS: Pantoprazole Inj IV SCH (08:55)
[2017-03-15] MEDS: Heparin 5000 units/ml inj SUBQ SCH ×2 (08:56→20:43)
[2017-03-15 11:59] VITALS: BP 134/64
--- NOTE | 2017-03-15 13:51 | Pulmonology Progress Note ---
Assessment/Plan Problems: (1) Sepsis (2) Nosocomial pneumonia (3) Anemia (4) Sacral decubitus ulcer (5) Paroxysmal a-fib (6) G tube feedings (7) Advanced dementia (8) Tracheostomy in place (9) Functional quadriplegia Assessment/Plan somnolent, comfortable continue abx, Cefepime, Colistin, Flagyl frequent suctioning tolerating feeding wound care. all reviewed check labs in am pt;s son appealed discharge. Subjective ROS Limited/Unobtainable: No Constitutional: Reports: no symptoms Allergies: Coded Allergies: No Known Allergies (Unverified , 01/02/17) Objective Last 24 Hour Vital Signs Date Time Temp Pulse Resp B/P (MAP) Pulse Ox O2 Delivery O2 Flow Rate FiO2 03/15/17 11:59 97.2 81 18 134/64 03/15/17 08:01 T-piece 8.0 30 03/15/17 08:00 T-piece 8.0 03/15/17 07:59 98 T-piece 8.0 30 03/15/17 07:57 90 18 Room Air 8.0 30 03/15/17 04:00 97.3 95 20 138/85 100 Room Air 03/15/17 01:18 99 Trach Collar 8.0 30 03/15/17 01:18 T-piece 8.0 30 03/15/17 00:46 T-piece 03/15/17 00:09 97.9 86 18 112/67 100 Room Air 03/14/17 20:50 99 Trach Collar 8.0 30 03/14/17 20:50 Trach Collar 8.0 30 03/14/17 20:50 87 18 Trach Collar 8.0 30 03/14/17 20:18 97.3 60 17 111/60 100 03/14/17 20:00 T-piece 03/14/17 16:00 97.7 64 18 152/64 100 T-piece 8.0 Objective General Appearance: WD/WN HEENT: normocephalic, anicteric, trach intact Cardiovascular: normal peripheral pulses, normal rate Abdomen: normal bowel sounds, no organomegaly Genitourinary: normal external genitalia Extremities: no clubbing Skin: no lesions Lymphatic: no neck adenopathy Current Medications Medications (Trade) Dose Ordered Sig/Dorie Route PRN Reason Start Time Stop Time Status Last Admin Dose Admin Acetaminophen (Tylenol) 650 mg Q4H PRN ORAL T>100.5 03/07/17 03:30 04/03/17 15:29 Dextrose (Dextrose 50%) STAT PRN IV Hypoglycemia 03/07/17 15:30 04/03/17 15:29 Divalproex Sodium (Depakote Sprinkles) 250 mg Q12HR GT 03/07/17 09:00 04/03/17 20:59 03/15/17 08:55 Heparin Sodium (Porcine) (Heparin 5000 units/ml) 5,000 units EVERY 12 HOURS SUBQ 03/07/17 09:00 04/03/17 20:59 03/15/17 08:56 Insulin Aspart (NovoLOG) Q6HR SUBQ 03/07/17 00:00 04/03/17 20:59 03/15/17 13:37 Levetiracetam (Keppra) 500 mg Q12HR GT 03/07/17 09:00 04/03/17 20:59 03/15/17 08:54 Ondansetron HCl (Zofran) 4 mg Q6H PRN IVP Nausea & Vomiting 03/07/17 03:30 04/03/17 15:29 Pantoprazole (Protonix) 40 mg DAILY IV 03/07/17 09:00 04/04/17 08:59 03/15/17 08:55 Polyethylene Glycol (Miralax) 17 gm DAILYPRN PRN GT Constipation 03/07/17 18:15 04/06/17 18:14 BAM SCHAEFFER Mar 15, 2017 13:51
--- NOTE | 2017-03-15 15:30 | Diagnostic Imaging Report ---
Indication: Cough Technique: One view of the chest Comparison: 05/12/2016 Findings: There is atelectasis at the right lung base, unchanged. Left basilar crescentic opacity is stable. No new infiltrates. Tracheostomy remains Impression: Unchanged, over 3 days, findings as above.
[2017-03-15 16:01] VITALS: BP 132/70
--- NOTE | 2017-03-15 16:03 | General Progress Note ---
Assessment/Plan Problem List: (1) UTI (urinary tract infection) Assessment & Plan: 2/2 MDR Klebsiella ICD Codes: N39.0 - Urinary tract infection, site not specified SNOMED: 89528291 Qualifiers: Qualified Codes: T83.511A - Infection and inflammatory reaction due to indwelling urethral catheter, initial encounter; N39.0 - Urinary tract infection , site not specified (2) Aspiration pneumonia ICD Codes: J69.0 - Pneumonitis due to inhalation of food and vomit SNOMED: 752622605 (3) Acute toxic metabolic encephalopathy (4) Chronic respiratory failure Assessment & Plan: with hypoxia s/p tracheostomy ICD Codes: J96.10 - Chronic respiratory failure, unspecified whether with hypoxia or hypercapnia SNOMED: 47155964 (5) Paroxysmal A-fib ICD Codes: I48.0 - Paroxysmal atrial fibrillation SNOMED: 798824687 (6) Advanced dementia ICD Codes: F03.90 - Unspecified dementia without behavioral disturbance SNOMED: 82109488 (7) Functional quadriplegia ICD Codes: R53.2 - Functional quadriplegia SNOMED: 896871915636319 (8) Tracheostomy in place ICD Codes: Z93.0 - Tracheostomy status SNOMED: 142602087 (9) S/P percutaneous endoscopic gastrostomy (PEG) tube placement ICD Codes: Z93.1 - Gastrostomy status SNOMED: 817994119 (10) Anemia ICD Codes: D64.9 - Anemia, unspecified SNOMED: 120620316 Qualifiers: Qualified Codes: D64.9 - Anemia, unspecified (11) Gastritis ICD Codes: K29.70 - Gastritis, unspecified, without bleeding SNOMED: 5531871 (12) Seizure disorder ICD Codes: G40.909 - Epilepsy, unspecified, not intractable, without status epilepticus SNOMED: 414440660 (13) HTN (hypertension) ICD Codes: I10 - Essential (primary) hypertension SNOMED: 42725324 (14) Diabetes mellitus ICD Codes: E11.9 - Type 2 diabetes mellitus without complications SNOMED: 30511899 Qualifiers: Qualified Codes: E11.8 - Type 2 diabetes mellitus with unspecified complications (15) Pressure ulcer Assessment & Plan: #1 Right lateral 1st metatarsal head pressure ulcer with yellow scab adhered to wound bed #2 Right Heel unstageable pressure ulcer #3 Sacral unstageable pressure ulcer #4 Left heel DTI pressure ulcer ICD Codes: L89.90 - Pressure ulcer of unspecified site, unspecified stage SNOMED: 445386783 Status: stable Assessment/Plan Vancomycin, polymyxin, cefepime and flagyl per ID s/p levaquin, cefepime and amikacin in ED on 03/04 ID and pulm consulted, appreciate rec's s/p olvera exchange on 03/05/17 F/u cultures--urine cx w/ >100K Klebsiella w/ carbapenem resistance Cont O2 via trach PRN Duonebs PRN Trend CBC, BMP Cont SNF meds Supportive care Wound care CM consulted for d/c back to SNF, awaiting placement. Pt has run out of Medicare SNF days and he has no secondary insurance. He has not qualified for [facility] in past. Awaiting discussion w/ son. Consider home w/ hospice if family agrees. Family stating they are not able to care for pt at home SW consulted for possible APS DVT Prophylaxis: SCD, HSQ Code Status: Full Hospital Classification Declaration: Based on this initial evaluation, and depending on the patient's clinical course, I anticipate that this patient will require hospitalization for 1-2 days for UTI, AMS and close respiratory/ hemodynamic monitoring. Disposition: Once the patient is stable to leave the hospital, I anticipate the patient will likely be discharged to the following environment: back to SNF Discussed with patient/family, nursing staff, SW/CM, pulm, ID regarding clinical status, treatment course, and disposition planning. D/w ID re plan for abx Time of note may not reflect time of encounter. Subjective Date patient seen: Mar 15, 2017 Time patient seen: 16:02 ROS Limited/Unobtainable: Yes Allergies: Coded Allergies: No Known Allergies (Unverified , 01/02/17) Subjective No acute o/n events HDS Urine cx shows >100K Klebisella w/ carbapenem resistance Olvera exchanged on 03/06/17 Awaiting placement. Spoke to pt's who deferred to son Manuelito. Left msg for Manuelito, awaiting call back Pt bedbound and nonverbal at baseline Unable to obtain ROS 2/2 dementia and pt nonverbal Objective Last 24 Hour Vital Signs Date Time Temp Pulse Resp B/P (MAP) Pulse Ox O2 Delivery O2 Flow Rate FiO2 03/15/17 14:20 98 T-piece 6.0 30 03/15/17 14:18 T-piece 6.0 30 03/15/17 12:00 100 T-piece 8.0 03/15/17 11:59 97.2 81 18 134/64 03/15/17 08:01 T-piece 8.0 30 03/15/17 08:00 T-piece 8.0 03/15/17 07:59 98 T-piece 8.0 30 03/15/17 07:57 90 18 Room Air 8.0 30 03/15/17 04:00 97.3 95 20 138/85 100 Room Air 03/15/17 01:18 99 Trach Collar 8.0 30 03/15/17 01:18 T-piece 8.0 30 03/15/17 00:46 T-piece 03/15/17 00:09 97.9 86 18 112/67 100 Room Air 03/14/17 20:50 99 Trach Collar 8.0 30 03/14/17 20:50 Trach Collar 8.0 30 03/14/17 20:50 87 18 Trach Collar 8.0 30 03/14/17 20:18 97.3 60 17 111/60 100 03/14/17 20:00 T-piece Height (Feet): 6 Height (Inches): 0.00 Weight (Pounds): 180 Objective General: eyes closed, nonverbal, unresponsive to voice and painful stimuli Head: normocephalic, without obvious abnormality, atraumatic Eyes: conjunctivae/corneas clear. PERRL, EOM's intact Throat: lips, mucosa, and tongue normal. MMM Neck: supple, symmetrical, trachea midline, and no JVD Lungs: +rhonchi b/l, decreased breath sounds on L side Heart: regular rate and rhythm, S1, S2 normal, no murmur, click, rub or gallop Abdomen: soft, non-tender, non-distended, bowel sounds normal; no masses or organomegaly Extremities: extremities normal, atraumatic, no cyanosis or edema Pulses: 2+ and symmetric Skin: skin color, texture, turgor normal; no rashes or lesions Neurologic: unable to assess Travis Hinojosa M.D. Mar 15, 2017 16:03
[2017-03-15 20:00] VITALS: BP 125/63
--- NOTE | 2017-03-15 21:11 | Infectious Diseases Prog Note ---
Assessment/Plan Assessment/Plan A) 1) KPC/Klebsiella uti, pseudomonas pna/providencia pna, proteus/strep/staph aureus/enterococcus sacral wound infection - clinically stable - chest x-ray stable - s/p abx, discontinued yesterday 2) chronic olvera 3) trach, no vent 4) sz, dm, htn, anemia, arrhythmia, af, dementia, qp, cva, weakness, dysphagia, g-tube 5) allergies - negative, fh-nc, sh-negative, mar noted, notes and records noted 6) d/w RN P) 1) observe off abx 2) check labs and chest x-ray 3) wound care per protocol 4) continue treatment per primary and consultants 5) orders entered and noted Subjective Constitutional: Reports: fatigue HEENT: Denies: congestion Respiratory: Denies: shortness of breath Cardiovascular: Reports: other - no pressors Gastrointestinal/Abdominal: Denies: nausea, vomiting, diarrhea Genitourinary: Reports: other - no olvera Neurologic: Reports: weakness, other - opens eyes Psychiatric: Denies: depression Skin: Denies: rash Hematologic: Denies: bleeding Musculoskeletal: Denies: pain Allergies: Coded Allergies: No Known Allergies (Unverified , 01/02/17) Objective Vital Signs Last 24 Hour Vital Signs Date Time Temp Pulse Resp B/P (MAP) Pulse Ox O2 Delivery O2 Flow Rate FiO2 03/15/17 20:00 97.2 79 20 125/63 99 Room Air 03/15/17 16:01 97.0 67 18 132/70 99 03/15/17 14:20 98 T-piece 6.0 30 03/15/17 14:18 T-piece 6.0 30 03/15/17 12:00 100 T-piece 8.0 03/15/17 11:59 97.2 81 18 134/64 03/15/17 08:01 T-piece 8.0 30 03/15/17 08:00 T-piece 8.0 03/15/17 07:59 98 T-piece 8.0 30 03/15/17 07:57 90 18 Room Air 8.0 30 03/15/17 04:00 97.3 95 20 138/85 100 Room Air 03/15/17 01:18 99 Trach Collar 8.0 30 03/15/17 01:18 T-piece 8.0 30 03/15/17 00:46 T-piece 03/15/17 00:09 97.9 86 18 112/67 100 Room Air Height (Feet): 6 Height (Inches): 0.00 Weight (Pounds): 180 General Appearance: no acute distress HEENT: normocephalic, atraumatic, anicteric, mucous membranes moist, EOMI, pharynx normal, supple, no JVD, status post trach Respiratory/Chest: crackles/rales, rhonchi - bilaterally Cardiovascular: normal rate, regular rhythm, no gallop/murmur, no JVD Abdomen: normal bowel sounds, soft, non tender, no organomegaly, non distended Genitourinary: other - no olvera seen Extremities: no cyanosis Skin: no rash Neurologic/Psychiatric: manager golf II-XII grossly normal, alert, motor weakness, other - opens eyes Lymphatic: no neck adenopathy Musculoskeletal: no effusion Objective 03/05 - chest x-ray Impression: New finding of left-sided pleural effusion Retrocardiac atelectasis and consolidation, new since previous study of 2016 Right basilar atelectasis, improved since 07/04/1703/06 - chest x-ray - Comparison: 03/04/2017 Findings: Slightly improved inspiration, with slightly decreased right basilar atelectasis. There is also decreased atelectasis at the left lung base. Tracheostomy remains. Impression: Preparation with improved bibasilar atelectasis. 03/10 - chest x-ray: Findings: Tracheostomy, bilateral basilar atelectasis, left basilar ovoid lucency , cholecystectomy clips are all unchanged. Impression: Unchanged, over 2 days, findings as above. 03/12/17- Impression: Is slight increased bibasilar atelectasis. Otherwise little microsoft exchange administrator 2 days, findings as noted 03/15 - chest x-ray - no change (report noted) Microbiology Date/Time Source Procedure Growth Status 03/05/17 05:50 Sputum Gram Stain - Final Complete 03/05/17 05:50 Sputum Culture - Final Pseudomonas Aeruginosa Providencia Stuartii Complete 03/04/17 17:00 Stool Clostridium difficile Toxin Assay - Final Complete 03/04/17 12:30 Urine,Clean Catch Urine Culture - Final K.pneumoniae Carbapenem Resist Complete 03/04/17 19:00 Sacral Wound Gram Stain - Final Complete 03/04/17 19:00 Wound Culture - Final Proteus Mirabilis Staphylococcus Aureus - Mrsa Enterococcus Faecalis Complete Labs Test 03/13/17 07:10 03/14/17 08:05 White Blood Count 8.7 K/UL (4.8-10.8) 8.5 K/UL (4.8-10.8) Red Blood Count 3.06 M/UL (4.70-6.10) 3.61 M/UL (4.70-6.10) Hemoglobin 9.3 G/DL (14.2-18.0) 10.6 G/DL (14.2-18.0) Hematocrit 27.7 % (42.0-52.0) 32.7 % (42.0-52.0) Mean Corpuscular Volume 91 FL (80-99) 91 FL (80-99) Mean Corpuscular Hemoglobin 30.4 PG (27.0-31.0) 29.3 PG (27.0-31.0) Mean Corpuscular Hemoglobin Concent 33.6 G/DL (32.0-36.0) 32.2 G/DL (32.0-36.0) Red Cell Distribution Width 15.6 % (11.6-14.8) 15.7 % (11.6-14.8) Platelet Count 341 K/UL (150-450) 339 K/UL (150-450) Mean Platelet Volume 6.8 FL (6.5-10.1) 6.5 FL (6.5-10.1) Neutrophils (%) (Auto) 52.3 % (45.0-75.0) 59.5 % (45.0-75.0) Lymphocytes (%) (Auto) 27.3 % (20.0-45.0) 24.8 % (20.0-45.0) Monocytes (%) (Auto) 15.3 % (1.0-10.0) 11.8 % (1.0-10.0) Eosinophils (%) (Auto) 3.8 % (0.0-3.0) 2.9 % (0.0-3.0) Basophils (%) (Auto) 1.3 % (0.0-2.0) 1.0 % (0.0-2.0) Sodium Level 137 MMOL/L (136-145) 137 MMOL/L (136-145) Potassium Level 3.5 MMOL/L (3.5-5.1) 3.4 MMOL/L (3.5-5.1) Chloride Level 98 MMOL/L (98-107) 96 MMOL/L (98-107) Carbon Dioxide Level 33 MMOL/L (21-32) 35 MMOL/L (21-32) Anion Gap 6 mmol/L (5-15) 6 mmol/L (5-15) Blood Urea Nitrogen 13 mg/dL (7-18) 15 mg/dL (7-18) Creatinine 1.1 MG/DL (0.55-1.30) 1.3 MG/DL (0.55-1.30) Estimat Glomerular Filtration Rate mL/min (>60) mL/min (>60) Glucose Level 156 MG/DL (74-106) 149 MG/DL (74-106) Calcium Level 9.8 MG/DL (8.5-10.1) 10.0 MG/DL (8.5-10.1) Phosphorus Level 3.7 MG/DL (2.5-4.9) 3.9 MG/DL (2.5-4.9) Magnesium Level 1.5 MG/DL (1.8-2.4) 1.9 MG/DL (1.8-2.4) Total Bilirubin 0.2 MG/DL (0.2-1.0) 0.2 MG/DL (0.2-1.0) Aspartate Amino Transf (AST/SGOT) 23 U/L (15-37) 22 U/L (15-37) Alanine Aminotransferase (ALT/SGPT) 11 U/L (12-78) 14 U/L (12-78) Alkaline Phosphatase 115 U/L (46-116) 119 U/L (46-116) Total Protein 8.1 G/DL (6.4-8.2) 8.4 G/DL (6.4-8.2) Albumin 2.1 G/DL (3.4-5.0) 2.3 G/DL (3.4-5.0) Globulin 6.0 g/dL 6.1 g/dL Albumin/Globulin Ratio 0.3 (1.0-2.7) 0.4 (1.0-2.7) Erythrocyte Sedimentation Rate 99 MM/HR (0-30) C-Reactive Protein, Quantitative 5.5 mg/dL (0.00-0.90) Current Medications Medications (Trade) Dose Ordered Sig/Dorie Route PRN Reason Start Time Stop Time Status Last Admin Dose Admin Acetaminophen (Tylenol) 650 mg Q4H PRN ORAL T>100.5 03/07/17 03:30 04/03/17 15:29 Dextrose (Dextrose 50%) STAT PRN IV Hypoglycemia 03/07/17 15:30 04/03/17 15:29 Divalproex Sodium (Depakote Sprinkles) 250 mg Q12HR GT 03/07/17 09:00 04/03/17 20:59 03/15/17 20:37 Heparin Sodium (Porcine) (Heparin 5000 units/ml) 5,000 units EVERY 12 HOURS SUBQ 03/07/17 09:00 04/03/17 20:59 03/15/17 20:43 Insulin Aspart (NovoLOG) Q6HR SUBQ 03/07/17 00:00 04/03/17 20:59 03/15/17 17:47 Levetiracetam (Keppra) 500 mg Q12HR GT 03/07/17 09:00 04/03/17 20:59 03/15/17 20:37 Ondansetron HCl (Zofran) 4 mg Q6H PRN IVP Nausea & Vomiting 03/07/17 03:30 04/03/17 15:29 Pantoprazole (Protonix) 40 mg DAILY IV 03/07/17 09:00 04/04/17 08:59 03/15/17 08:55 Polyethylene Glycol (Miralax) 17 gm DAILYPRN PRN GT Constipation 03/07/17 18:15 04/06/17 18:14 JENNIFER BEVERLY Mar 15, 2017 21:11
--- NOTE | 2017-03-15 23:27 | Consultation ---
History of Present Illness General Chief Complaint: General Complaint Present Illness HPI 81-year-old male, who is a very poor historian. The patient presents to the hospital with elevated heart rate. The patient has a history of paroxysmal atrial fibrillation. The patient was noted to have complicated UTI. the pt was agitated earlier confused Allergies: Coded Allergies: No Known Allergies (Unverified , 01/02/17) Medication History Scheduled Amino Acids/Protein Hydrolys (Pro-Stat Liquid), 30 ML GT DAILY, (Reported) Ascorbic Acid* (Vitamin C*), Unknown Dose GT DAILY, (Reported) Ascorbic Acid* (Vitamin C*), 250 MG GT DAILY, (Reported) Chlorhexidine Gluconate* (Hibiclens*), 5 OZ ORAL EVERY 12 HOURS, (Reported) Divalproex Sodium* (Depakote*), 250 MG PO Q12HR, (Reported) Docusate Sodium (Docusate Sodium), 100 MG GT TWICE A DAY, (Reported) Docusate Sodium* (Colace*), 100 MG ORAL TWICE A DAY, (Reported) Famotidine (Famotidine), 20 MG GT TWICE A DAY, (Reported) Ferrous Sulfate (Ferrous Sulfate), 7.5 MG GT DAILY, (Reported) Heparin Sod (Porcine) (Heparin Sodium*), 5,000 UNITS SUBQ EVERY 12 HOURS, ( Reported) Insulin Aspart* (Novolog*), 0 SUBQ BEFORE MEALS AND HS, (Reported) Insulin Detemir (Levemir Flextouch), 42 UNIT SQ BID, (Reported) Lacosamide (Vimpat), 100 MG GT EVERY 12 HOURS, (Reported) Levetiracetam (Keppra), 500 MG ORAL EVERY 12 HOURS, (Reported) Levetiracetam* (Levetiracetam*), 1,500 MG GT BID, (Reported) Metoprolol Tartrate (Metoprolol Tartrate), 12.5 MG GT Q12HR Metronidazole* (Flagyl*), 500 MG ORAL EVERY 8 HOURS Pantoprazole* (Protonix*), 40 MG ORAL DAILY, (Reported) Polyethylene Glycol 3350* (Miralax*), 17 GM ORAL DAILY, (Reported) Valproate Sodium (Depakene), 500 MG GT EVERY 8 HOURS, (Reported) Zinc Sulfate (Zinc Sulfate*), 220 MG GT DAILY, (Reported) [Amikacin Rx to dose], 1 EA MISC DAILY Scheduled PRN Acetaminophen* (Acetaminophen*), 320 MG GT Q6H PRN for Mild Pain/Temp > 100.5, ( Reported) Hydrocodone Bit/Acetaminophen 5-325* ([place] 5-325 Tablet*), 1 TAB ORAL Q6HR PRN for For Pain, (Reported) Ipratropium/Albuterol Sulfate (Combivent Respimat Inhal [place]), 3 ML IH EVERY 6 HOURS PRN for Shortness of Breath, (Reported) Ondansetron* (Zofran*), 4 MG ORAL Q4HR PRN for Nausea & Vomiting, (Reported) Ondansetron* (Zofran*), 4 MG GT Q4HR PRN for Nausea & Vomiting, (Reported) Polyethylene Glycol 3350* (Polyethylene Glycol 3350*), 17 GM GT DAILY PRN for Constipation, (Reported) Miscellaneous Medications Insulin Aspart* (Novolog*), 0 SUBQ, (Reported) Ipratropium/Albuterol Sulfate (DuoNeb 0.5-3(2.5)mg/3ml), 3 ML HHN, (Reported) Patient History Healthcare decision maker Resuscitation status Full Code Advanced Directive on File Physical Exam Last 24 Hour Vital Signs Date Time Temp Pulse Resp B/P (MAP) Pulse Ox O2 Delivery O2 Flow Rate FiO2 03/15/17 20:00 97.2 79 20 125/63 99 Room Air 03/15/17 16:01 97.0 67 18 132/70 99 03/15/17 14:20 98 T-piece 6.0 30 03/15/17 14:18 T-piece 6.0 30 03/15/17 12:00 100 T-piece 8.0 03/15/17 11:59 97.2 81 18 134/64 03/15/17 08:01 T-piece 8.0 30 03/15/17 08:00 T-piece 8.0 03/15/17 07:59 98 T-piece 8.0 30 03/15/17 07:57 90 18 Room Air 8.0 30 03/15/17 04:00 97.3 95 20 138/85 100 Room Air 03/15/17 01:18 99 Trach Collar 8.0 30 03/15/17 01:18 T-piece 8.0 30 03/15/17 00:46 T-piece 03/15/17 00:09 97.9 86 18 112/67 100 Room Air Intake and Output 03/15/17 03/16/17 19:00 07:00 # Voids 4 Height (Feet): 6 Height (Inches): 0.00 Weight (Pounds): 180 Medications Current Medications Medications (Trade) Dose Ordered Sig/Dorie Route PRN Reason Start Time Stop Time Status Last Admin Dose Admin Acetaminophen (Tylenol) 650 mg Q4H PRN ORAL T>100.5 03/07/17 03:30 04/03/17 15:29 Dextrose (Dextrose 50%) STAT PRN IV Hypoglycemia 03/07/17 15:30 04/03/17 15:29 Divalproex Sodium (Depakote Sprinkles) 250 mg Q12HR GT 03/07/17 09:00 04/03/17 20:59 03/15/17 20:37 Heparin Sodium (Porcine) (Heparin 5000 units/ml) 5,000 units EVERY 12 HOURS SUBQ 03/07/17 09:00 04/03/17 20:59 03/15/17 20:43 Insulin Aspart (NovoLOG) Q6HR SUBQ 03/07/17 00:00 04/03/17 20:59 03/15/17 17:47 Levetiracetam (Keppra) 500 mg Q12HR GT 03/07/17 09:00 04/03/17 20:59 03/15/17 20:37 Ondansetron HCl (Zofran) 4 mg Q6H PRN IVP Nausea & Vomiting 03/07/17 03:30 04/03/17 15:29 Pantoprazole (Protonix) 40 mg DAILY IV 03/07/17 09:00 04/04/17 08:59 03/15/17 08:55 Polyethylene Glycol (Miralax) 17 gm DAILYPRN PRN GT Constipation 03/07/17 18:15 04/06/17 18:14 Fortunato Aldrich M.D. Mar 15, 2017 23:27
[2017-03-16] VITALS: BP 102/58
[2017-03-16] MEDS: NovoLOG Insulin Flexpen SUBQ SCH ×5 (00:38→23:20)
[2017-03-16 04:00] VITALS: BP 125/63
[2017-03-16 06:53] LABS: BASOPHILS % (AUTO) 0.9 % (0.0-2.0); EOSINOPHILS % (AUTO) 2.8 % (0.0-3.0); LYMPHOCYTES % (AUTO) 31.7 % (20.0-45.0); MEAN CORPUSCULAR HEMOGLOBIN 29.4 PG (27.0-31.0); MEAN CORPUSCULAR HGB CONC 32.5 G/DL (32.0-36.0); MEAN CORPUSCULAR VOLUME 91 FL (80-99); MEAN PLATELET VOLUME 6.8 FL (6.5-10.1); MONOCYTES % (AUTO) 13.1 % (1.0-10.0); NEUTROPHILS % (AUTO) 51.5 % (45.0-75.0); PLATELET COUNT 336 K/UL (150-450); RED BLOOD COUNT 3.77 M/UL (4.70-6.10); RED CELL DISTRIBUTION WIDTH 15.7 % (11.6-14.8); WHITE BLOOD COUNT 8.1 K/UL (4.8-10.8)
[2017-03-16 08:00] VITALS: BP 106/61
[2017-03-16 08:16] LABS: ALANINE AMINOTRANSFERASE 11 U/L (12-78); ALBUMIN/GLOBULIN RATIO 0.4 (1.0-2.7); ANION GAP 3 mmol/L (5-15); ASPARTATE AMINO TRANSFERASE 20 U/L (15-37); CALCIUM 10.3 MG/DL (8.5-10.1); CARBON DIOXIDE 39 MMOL/L (21-32); CHLORIDE 96 MMOL/L (98-107); CREATININE 1.4 MG/DL (0.55-1.30); MAGNESIUM 1.8 MG/DL (1.8-2.4); PHOSPHORUS 4.1 MG/DL (2.5-4.9); POTASSIUM 3.5 MMOL/L (3.5-5.1); SODIUM 138 MMOL/L (136-145)
[2017-03-16] MEDS: levETIRAcetam 500mg/5ml Liquid GT SCH ×2 (10:07→20:31)
[2017-03-16] MEDS: Pantoprazole Inj IV SCH (10:08)
[2017-03-16] MEDS: Depakote 125mg Sprinkles GT SCH ×2 (10:08→20:31)
[2017-03-16] MEDS: Heparin 5000 units/ml inj SUBQ SCH ×2 (10:10→20:32)
[2017-03-16 12:00] VITALS: BP 121/74
--- NOTE | 2017-03-16 14:16 | General Progress Note ---
Assessment/Plan Problem List: (1) UTI (urinary tract infection) Assessment & Plan: 2/2 MDR Klebsiella ICD Codes: N39.0 - Urinary tract infection, site not specified SNOMED: 99058623 Qualifiers: Qualified Codes: T83.511A - Infection and inflammatory reaction due to indwelling urethral catheter, initial encounter; N39.0 - Urinary tract infection , site not specified (2) Aspiration pneumonia ICD Codes: J69.0 - Pneumonitis due to inhalation of food and vomit SNOMED: 296989917 (3) Acute toxic metabolic encephalopathy (4) Chronic respiratory failure Assessment & Plan: with hypoxia s/p tracheostomy ICD Codes: J96.10 - Chronic respiratory failure, unspecified whether with hypoxia or hypercapnia SNOMED: 19391766 (5) Paroxysmal A-fib ICD Codes: I48.0 - Paroxysmal atrial fibrillation SNOMED: 209623445 (6) Advanced dementia ICD Codes: F03.90 - Unspecified dementia without behavioral disturbance SNOMED: 08899275 (7) Functional quadriplegia ICD Codes: R53.2 - Functional quadriplegia SNOMED: 509014600106166 (8) Tracheostomy in place ICD Codes: Z93.0 - Tracheostomy status SNOMED: 350426261 (9) S/P percutaneous endoscopic gastrostomy (PEG) tube placement ICD Codes: Z93.1 - Gastrostomy status SNOMED: 927283118 (10) Anemia ICD Codes: D64.9 - Anemia, unspecified SNOMED: 873716561 Qualifiers: Qualified Codes: D64.9 - Anemia, unspecified (11) Gastritis ICD Codes: K29.70 - Gastritis, unspecified, without bleeding SNOMED: 6407773 (12) Seizure disorder ICD Codes: G40.909 - Epilepsy, unspecified, not intractable, without status epilepticus SNOMED: 944008842 (13) HTN (hypertension) ICD Codes: I10 - Essential (primary) hypertension SNOMED: 34700574 (14) Diabetes mellitus ICD Codes: E11.9 - Type 2 diabetes mellitus without complications SNOMED: 35167283 Qualifiers: Qualified Codes: E11.8 - Type 2 diabetes mellitus with unspecified complications (15) Pressure ulcer Assessment & Plan: #1 Right lateral 1st metatarsal head pressure ulcer with yellow scab adhered to wound bed #2 Right Heel unstageable pressure ulcer #3 Sacral unstageable pressure ulcer #4 Left heel DTI pressure ulcer ICD Codes: L89.90 - Pressure ulcer of unspecified site, unspecified stage SNOMED: 513533404 Status: stable Assessment/Plan s/p Vancomycin, polymyxin, cefepime and flagyl (course ended 03/14/17 per ID) s/p levaquin, cefepime and amikacin in ED on 03/04 ID and pulm consulted, appreciate rec's s/p olvera exchange on 03/05/17 F/u cultures--urine cx w/ >100K Klebsiella w/ carbapenem resistance Cont O2 via trach PRN Duonebs PRN Trend CBC, BMP Cont SNF meds Supportive care Wound care CM consulted for d/c back to SNF, awaiting placement. Pt has run out of Medicare SNF days and he has no secondary insurance. He has not qualified for [facility] in past. Awaiting discussion w/ son. Consider home w/ hospice if family agrees. Family stating they are not able to care for pt at home. Son is appealing d/c per CM SW consulted for possible APS DVT Prophylaxis: SCD, HSQ Code Status: Full Hospital Classification Declaration: Based on this initial evaluation, and depending on the patient's clinical course, I anticipate that this patient will require hospitalization for 1-2 days for UTI, AMS and close respiratory/ hemodynamic monitoring. Disposition: Once the patient is stable to leave the hospital, I anticipate the patient will likely be discharged to the following environment: back to SNF vs home w/ hospice or health health + caregiver Discussed with patient/family, nursing staff, SW/CM, pulm, ID regarding clinical status, treatment course, and disposition planning. D/w ID re plan for abx Time of note may not reflect time of encounter. Subjective Date patient seen: Mar 16, 2017 Time patient seen: 14:16 ROS Limited/Unobtainable: Yes Allergies: Coded Allergies: No Known Allergies (Unverified , 01/02/17) Subjective No acute o/n events HDS Urine cx shows >100K Klebisella w/ carbapenem resistance Olvera exchanged on 03/06/17 Awaiting placement. Spoke to pt's who deferred to son Manuelito. Left msg for Manuelito, awaiting call back. Son appealing discharge per CM Pt bedbound and nonverbal at baseline Unable to obtain ROS 2/2 dementia and pt nonverbal Objective Last 24 Hour Vital Signs Date Time Temp Pulse Resp B/P (MAP) Pulse Ox O2 Delivery O2 Flow Rate FiO2 03/16/17 13:58 T-piece 8.0 30 03/16/17 13:57 97 T-piece 8.0 30 03/16/17 12:00 96.8 68 20 121/74 99 03/16/17 08:20 98 T-piece 8.0 30 03/16/17 08:18 T-piece 8.0 30 03/16/17 08:17 84 18 T-piece 8.0 30 03/16/17 08:00 97.3 75 20 106/61 100 03/16/17 04:00 97.3 62 17 125/63 99 03/16/17 04:00 T-piece 5.0 03/16/17 01:00 100 T-piece 8.0 30 03/16/17 01:00 T-piece 8.0 30 03/16/17 00:00 97.0 72 20 102/58 100 Room Air 03/16/17 00:00 T-piece 5.0 03/15/17 20:00 T-piece 5.5 03/15/17 20:00 97.2 79 20 125/63 99 Room Air 03/15/17 19:00 100 Trach Collar 8.0 30 03/15/17 19:00 T-piece 6.0 30 03/15/17 19:00 89 18 Trach Collar 8.0 30 03/15/17 16:01 97.0 67 18 132/70 99 03/15/17 14:20 98 T-piece 6.0 30 03/15/17 14:18 T-piece 6.0 30 Intake and Output 03/16/17 03/17/17 19:00 07:00 Intake Total 450 ml Balance 450 ml Intake Free Water 300 ml Tube Feeding 150 ml Laboratory Tests 03/16/17 05:10: White Blood Count 8.1, Red Blood Count 3.77L, Hemoglobin 11.1L, Hematocrit 34.1L , Mean Corpuscular Volume 91, Mean Corpuscular Hemoglobin 29.4, Mean Corpuscular Hemoglobin Concent 32.5, Red Cell Distribution Width 15.7H, Platelet Count 336, Mean Platelet Volume 6.8, Neutrophils (%) (Auto) 51.5, Lymphocytes (%) (Auto) 31.7, Monocytes (%) (Auto) 13.1H, Eosinophils (%) (Auto) 2.8, Basophils (%) (Auto) 0.9, Sodium Level 138, Potassium Level 3.5, Chloride Level 96L, Carbon Dioxide Level 39H, Anion Gap 3L, Blood Urea Nitrogen 20H, Creatinine 1.4H, Estimat Glomerular Filtration Rate , Glucose Level 156H, Calcium Level 10.3H, Phosphorus Level 4.1, Magnesium Level 1.8, Total Bilirubin 0.2, Aspartate Amino Transf (AST/SGOT) 20, Alanine Aminotransferase (ALT/SGPT) 11L, Alkaline Phosphatase 121H, Total Protein 9.0H, Albumin 2.5L, Globulin 6.5, Albumin/Globulin Ratio 0.4L Height (Feet): 6 Height (Inches): 0.00 Weight (Pounds): 180 Objective General: eyes closed, nonverbal, unresponsive to voice and painful stimuli Head: normocephalic, without obvious abnormality, atraumatic Eyes: conjunctivae/corneas clear. PERRL, EOM's intact Throat: lips, mucosa, and tongue normal. MMM Neck: supple, symmetrical, trachea midline, and no JVD Lungs: +rhonchi b/l, decreased breath sounds on L side Heart: regular rate and rhythm, S1, S2 normal, no murmur, click, rub or gallop Abdomen: soft, non-tender, non-distended, bowel sounds normal; no masses or organomegaly Extremities: extremities normal, atraumatic, no cyanosis or edema Pulses: 2+ and symmetric Skin: skin color, texture, turgor normal; no rashes or lesions Neurologic: unable to assess Travis Hinojosa M.D. Mar 16, 2017 14:16
[2017-03-16 16:00] VITALS: BP 115/49
--- NOTE | 2017-03-16 18:44 | Pulmonology Progress Note ---
Assessment/Plan Problems: (1) Sepsis (2) Nosocomial pneumonia (3) Anemia (4) Sacral decubitus ulcer (5) Paroxysmal a-fib (6) G tube feedings (7) Advanced dementia (8) Tracheostomy in place (9) Functional quadriplegia Assessment/Plan somnolent, comfortable continue abx, Cefepime, Colistin, Flagyl frequent suctioning tolerating feeding wound care. all reviewed check labs in am pt;s son appealed discharge. Subjective ROS Limited/Unobtainable: Yes Allergies: Coded Allergies: No Known Allergies (Unverified , 01/02/17) Objective Last 24 Hour Vital Signs Date Time Temp Pulse Resp B/P (MAP) Pulse Ox O2 Delivery O2 Flow Rate FiO2 03/16/17 16:00 97.5 66 22 115/49 100 Trach Collar 10.0 03/16/17 13:58 T-piece 8.0 30 03/16/17 13:57 97 T-piece 8.0 30 03/16/17 12:00 96.8 68 20 121/74 99 03/16/17 08:20 98 T-piece 8.0 30 03/16/17 08:18 T-piece 8.0 30 03/16/17 08:17 84 18 T-piece 8.0 30 03/16/17 08:00 97.3 75 20 106/61 100 03/16/17 04:00 97.3 62 17 125/63 99 03/16/17 04:00 T-piece 5.0 03/16/17 01:00 100 T-piece 8.0 30 03/16/17 01:00 T-piece 8.0 30 03/16/17 00:00 97.0 72 20 102/58 100 Room Air 03/16/17 00:00 T-piece 5.0 03/15/17 20:00 T-piece 5.5 03/15/17 20:00 97.2 79 20 125/63 99 Room Air 03/15/17 19:00 100 Trach Collar 8.0 30 03/15/17 19:00 T-piece 6.0 30 03/15/17 19:00 89 18 Trach Collar 8.0 30 Intake and Output 03/16/17 03/17/17 19:00 07:00 Intake Total 750 ml Output Total 150 ml Balance 600 ml Intake Free Water 450 ml Tube Feeding 300 ml Output Urine Total 150 ml Objective General Appearance: WD/WN HEENT: normocephalic, anicteric, trach intact Cardiovascular: normal peripheral pulses, normal rate Abdomen: normal bowel sounds, no organomegaly Genitourinary: normal external genitalia Extremities: no clubbing Skin: no lesions Lymphatic: no neck adenopathy Laboratory Tests 03/16/17 05:10: White Blood Count 8.1, Red Blood Count 3.77L, Hemoglobin 11.1L, Hematocrit 34.1L , Mean Corpuscular Volume 91, Mean Corpuscular Hemoglobin 29.4, Mean Corpuscular Hemoglobin Concent 32.5, Red Cell Distribution Width 15.7H, Platelet Count 336, Mean Platelet Volume 6.8, Neutrophils (%) (Auto) 51.5, Lymphocytes (%) (Auto) 31.7, Monocytes (%) (Auto) 13.1H, Eosinophils (%) (Auto) 2.8, Basophils (%) (Auto) 0.9, Sodium Level 138, Potassium Level 3.5, Chloride Level 96L, Carbon Dioxide Level 39H, Anion Gap 3L, Blood Urea Nitrogen 20H, Creatinine 1.4H, Estimat Glomerular Filtration Rate , Glucose Level 156H, Calcium Level 10.3H, Phosphorus Level 4.1, Magnesium Level 1.8, Total Bilirubin 0.2, Aspartate Amino Transf (AST/SGOT) 20, Alanine Aminotransferase (ALT/SGPT) 11L, Alkaline Phosphatase 121H, Total Protein 9.0H, Albumin 2.5L, Globulin 6.5, Albumin/Globulin Ratio 0.4L Current Medications Medications (Trade) Dose Ordered Sig/Dorie Route PRN Reason Start Time Stop Time Status Last Admin Dose Admin Acetaminophen (Tylenol) 650 mg Q4H PRN ORAL T>100.5 03/07/17 03:30 04/03/17 15:29 Dextrose (Dextrose 50%) STAT PRN IV Hypoglycemia 03/07/17 15:30 04/03/17 15:29 Divalproex Sodium (Depakote Sprinkles) 250 mg Q12HR GT 03/07/17 09:00 04/03/17 20:59 03/16/17 10:08 Heparin Sodium (Porcine) (Heparin 5000 units/ml) 5,000 units EVERY 12 HOURS SUBQ 03/07/17 09:00 04/03/17 20:59 03/16/17 10:10 Insulin Aspart (NovoLOG) Q6HR SUBQ 03/07/17 00:00 04/03/17 20:59 03/16/17 18:28 Levetiracetam (Keppra) 500 mg Q12HR GT 03/07/17 09:00 04/03/17 20:59 03/16/17 10:07 Ondansetron HCl (Zofran) 4 mg Q6H PRN IVP Nausea & Vomiting 03/07/17 03:30 04/03/17 15:29 Pantoprazole (Protonix) 40 mg DAILY IV 03/07/17 09:00 04/04/17 08:59 03/16/17 10:08 Polyethylene Glycol (Miralax) 17 gm DAILYPRN PRN GT Constipation 03/07/17 18:15 04/06/17 18:14 BAM SCHAEFFER Mar 16, 2017 18:44
[2017-03-16 20:00] VITALS: BP 105/63
--- NOTE | 2017-03-16 20:48 | Infectious Diseases Prog Note ---
Assessment/Plan Assessment/Plan A) 1) KPC/Klebsiella uti, pseudomonas pna/providencia pna, proteus/strep/staph aureus/enterococcus sacral wound infection - clinically stable - chest x-ray stable - s/p abx 2) chronic olvera, elevated cr noted 3) trach, no vent 4) sz, dm, htn, anemia, arrhythmia, af, dementia, qp, cva, weakness, dysphagia, g-tube 5) allergies - negative, fh-nc, sh-negative, mar noted, notes and records noted 6) d/w RN P) 1) observe off abx 2) check labs and chest x-ray - chest x-ray ordered for 03/18 3) wound care per protocol 4) continue treatment per primary and consultants 5) orders entered and noted Subjective Constitutional: Reports: fatigue, Denies: fever HEENT: Reports: congestion - mild only, no change Respiratory: Denies: shortness of breath Cardiovascular: Reports: other - no pressors Gastrointestinal/Abdominal: Denies: nausea, vomiting, diarrhea Genitourinary: Reports: other - + olvera Neurologic: Reports: weakness, other - poorly responsive Psychiatric: Denies: depression Skin: Denies: rash Hematologic: Denies: bleeding Musculoskeletal: Denies: pain Allergies: Coded Allergies: No Known Allergies (Unverified , 01/02/17) Objective Vital Signs Last 24 Hour Vital Signs Date Time Temp Pulse Resp B/P (MAP) Pulse Ox O2 Delivery O2 Flow Rate FiO2 03/16/17 20:00 98.5 98 18 105/63 100 Trach Collar 10.0 03/16/17 16:00 97.5 66 22 115/49 100 Trach Collar 10.0 03/16/17 13:58 T-piece 8.0 30 03/16/17 13:57 97 T-piece 8.0 30 03/16/17 12:00 96.8 68 20 121/74 99 03/16/17 08:20 98 T-piece 8.0 30 03/16/17 08:18 T-piece 8.0 30 03/16/17 08:17 84 18 T-piece 8.0 30 03/16/17 08:00 97.3 75 20 106/61 100 03/16/17 04:00 97.3 62 17 125/63 99 03/16/17 04:00 T-piece 5.0 03/16/17 01:00 100 T-piece 8.0 30 03/16/17 01:00 T-piece 8.0 30 03/16/17 00:00 97.0 72 20 102/58 100 Room Air 03/16/17 00:00 T-piece 5.0 Height (Feet): 6 Height (Inches): 0.00 Weight (Pounds): 180 General Appearance: no acute distress HEENT: normocephalic, atraumatic, anicteric, EOMI, supple, no JVD, status post trach Respiratory/Chest: crackles/rales - few, rhonchi - bilaterally - few Cardiovascular: normal rate, regular rhythm, no gallop/murmur, no JVD Abdomen: normal bowel sounds, soft, non tender, no organomegaly, non distended Genitourinary: other - + olvera - urine slt cloudy Extremities: no cyanosis Skin: no rash Neurologic/Psychiatric: motor weakness, other - generalized weakness Lymphatic: no neck adenopathy Musculoskeletal: no effusion Objective 03/05 - chest x-ray Impression: New finding of left-sided pleural effusion Retrocardiac atelectasis and consolidation, new since previous study of 2016 Right basilar atelectasis, improved since 07/04/1703/06 - chest x-ray - Comparison: 03/04/2017 Findings: Slightly improved inspiration, with slightly decreased right basilar atelectasis. There is also decreased atelectasis at the left lung base. Tracheostomy remains. Impression: Preparation with improved bibasilar atelectasis. 03/10 - chest x-ray: Findings: Tracheostomy, bilateral basilar atelectasis, left basilar ovoid lucency , cholecystectomy clips are all unchanged. Impression: Unchanged, over 2 days, findings as above. 03/12/17- Impression: Is slight increased bibasilar atelectasis. Otherwise little exchange operator 2 days, findings as noted 03/15 - chest x-ray - no change (report noted) Microbiology Date/Time Source Procedure Growth Status 03/05/17 05:50 Sputum Gram Stain - Final Complete 03/05/17 05:50 Sputum Culture - Final Pseudomonas Aeruginosa Providencia Stuartii Complete 03/04/17 17:00 Stool Clostridium difficile Toxin Assay - Final Complete 03/04/17 12:30 Urine,Clean Catch Urine Culture - Final K.pneumoniae Carbapenem Resist Complete 03/04/17 19:00 Sacral Wound Gram Stain - Final Complete 03/04/17 19:00 Wound Culture - Final Proteus Mirabilis Staphylococcus Aureus - Mrsa Enterococcus Faecalis Complete Laboratory Tests Test 03/16/17 05:10 White Blood Count 8.1 K/UL (4.8-10.8) Red Blood Count 3.77 M/UL (4.70-6.10) L Hemoglobin 11.1 G/DL (14.2-18.0) L Hematocrit 34.1 % (42.0-52.0) L Mean Corpuscular Volume 91 FL (80-99) Mean Corpuscular Hemoglobin 29.4 PG (27.0-31.0) Mean Corpuscular Hemoglobin Concent 32.5 G/DL (32.0-36.0) Red Cell Distribution Width 15.7 % (11.6-14.8) H Platelet Count 336 K/UL (150-450) Mean Platelet Volume 6.8 FL (6.5-10.1) Neutrophils (%) (Auto) 51.5 % (45.0-75.0) Lymphocytes (%) (Auto) 31.7 % (20.0-45.0) Monocytes (%) (Auto) 13.1 % (1.0-10.0) H Eosinophils (%) (Auto) 2.8 % (0.0-3.0) Basophils (%) (Auto) 0.9 % (0.0-2.0) Sodium Level 138 MMOL/L (136-145) Potassium Level 3.5 MMOL/L (3.5-5.1) Chloride Level 96 MMOL/L (98-107) L Carbon Dioxide Level 39 MMOL/L (21-32) H Anion Gap 3 mmol/L (5-15) L Blood Urea Nitrogen 20 mg/dL (7-18) H Creatinine 1.4 MG/DL (0.55-1.30) H Estimat Glomerular Filtration Rate mL/min (>60) Glucose Level 156 MG/DL (74-106) H Calcium Level 10.3 MG/DL (8.5-10.1) H Phosphorus Level 4.1 MG/DL (2.5-4.9) Magnesium Level 1.8 MG/DL (1.8-2.4) Total Bilirubin 0.2 MG/DL (0.2-1.0) Aspartate Amino Transf (AST/SGOT) 20 U/L (15-37) Alanine Aminotransferase (ALT/SGPT) 11 U/L (12-78) L Alkaline Phosphatase 121 U/L (46-116) H Total Protein 9.0 G/DL (6.4-8.2) H Albumin 2.5 G/DL (3.4-5.0) L Globulin 6.5 g/dL Albumin/Globulin Ratio 0.4 (1.0-2.7) L Current Medications Medications (Trade) Dose Ordered Sig/Dorie Route PRN Reason Start Time Stop Time Status Last Admin Dose Admin Acetaminophen (Tylenol) 650 mg Q4H PRN ORAL T>100.5 03/07/17 03:30 04/03/17 15:29 Dextrose (Dextrose 50%) STAT PRN IV Hypoglycemia 03/07/17 15:30 04/03/17 15:29 Divalproex Sodium (Depakote Sprinkles) 250 mg Q12HR GT 03/07/17 09:00 04/03/17 20:59 03/16/17 20:31 Heparin Sodium (Porcine) (Heparin 5000 units/ml) 5,000 units EVERY 12 HOURS SUBQ 03/07/17 09:00 04/03/17 20:59 03/16/17 20:32 Insulin Aspart (NovoLOG) Q6HR SUBQ 03/07/17 00:00 04/03/17 20:59 03/16/17 18:28 Levetiracetam (Keppra) 500 mg Q12HR GT 03/07/17 09:00 04/03/17 20:59 03/16/17 20:31 Ondansetron HCl (Zofran) 4 mg Q6H PRN IVP Nausea & Vomiting 03/07/17 03:30 04/03/17 15:29 Pantoprazole (Protonix) 40 mg DAILY IV 03/07/17 09:00 04/04/17 08:59 03/16/17 10:08 Polyethylene Glycol (Miralax) 17 gm DAILYPRN PRN GT Constipation 03/07/17 18:15 04/06/17 18:14 JENNIFER BEVERLY Mar 16, 2017 20:48
[2017-03-17] VITALS: BP 120/72
[2017-03-17 04:00] VITALS: BP 134/79
[2017-03-17] MEDS: NovoLOG Insulin Flexpen SUBQ SCH ×3 (05:24→18:13)
[2017-03-17 08:15] VITALS: BP 127/78
--- NOTE | 2017-03-17 08:23 | Wound Care Consultation ---
Wound Assessment Wound Assessment #1: Wound Number: 1 Wound Present on Admission: Yes New Wound: No Status Change of Wound: No Wound Location Body Site Modif: right Wound Location Body Site: heel Wound Type: pressure ulcer Elsa Test: Does not Elsa Pressure Ulcer Stage: Unstageable Wound Thickness: Full Thickness Wound Length: 3.5 Wound Width: 3.5 Wound Depth: utd Percent of Wound Bed Yellow/Wh: 70 Percent of Wound Black/Brown: 30 Wound Drainage Description: Serosanguineous Wound Drainage Amount: Moderate Wound Drainage Odor: None/Absent Tissue Surrounding Wound: Macerated Wound General Appearance: Blackened - yellow , Draining, Necrotic Wound Assessment #2: Wound Number: 2 Wound Present on Admission: Yes New Wound: No Status Change of Wound: No Wound Location Body Site Modif: right Wound Location Body Site: metatarsal head - 1st, (lateral) Wound Type: pressure ulcer Elsa Test: Does not Elsa Pressure Ulcer Stage: Unstageable - remains unstageable Wound Thickness: Full Thickness Wound Length: 1.0 Wound Width: 1.0 Wound Depth: utd Percent of Wound [place]/Red: 40 - dry Percent of Wound Bed Yellow/Wh: 60 - dry Wound Drainage Amount: None Wound Drainage Odor: None/Absent Tissue Surrounding Wound: Intact Wound General Appearance: Reddened - yellow, Clean/Dry Wound Assessment #3: Wound Number: 3 Wound Present on Admission: Yes New Wound: No Status Change of Wound: No Wound Location Body Site Modif: mid Wound Location Body Site: sacral Wound Type: pressure ulcer Elsa Test: Does not Elsa Pressure Ulcer Stage: Unstageable - stage 4 Wound Thickness: Full Thickness Wound Length: 8.5 Wound Width: 8.0 Wound Depth: utd Percent of Wound [place]/Red: 65 Percent of Wound Bed Yellow/Wh: 20 Percent of Wound Purple/Maroon: 15 Wound Drainage Description: Serosanguineous Wound Drainage Amount: Moderate Wound Drainage Odor: None/Absent Tissue Surrounding Wound: Macerated Wound General Appearance: Reddened, Draining, Necrotic, Muscle Visible Wound Assessment #4: Wound Number: 4 Wound Present on Admission: Yes New Wound: No Status Change of Wound: No Wound Location Body Site Modif: left Wound Location Body Site: heel Wound Type: pressure ulcer Elsa Test: Does not Elsa Pressure Ulcer Stage: Deep Tissue Injury Wound Thickness: Full Thickness Wound Length: 4.5 Wound Width: 4.5 Wound Depth: utd Percent of Wound Black/Brown: 100 - lovell color present. skin is intact Wound Drainage Amount: None Wound Drainage Odor: None/Absent Tissue Surrounding Wound: Intact Wound General Appearance: Clean/Dry Wound Comment Reassessment- noted good progress no further deterioration present, current wound care remains effective. #1 Right 1st metatarsal head pressure ulcer with yellow scab adhered to wound bed-noted good progress, no further deterioration present, noted decrease in yellow scab, decrease in size #2 Right Heel unstageable pressure ulcer- no further deterioration, remains unstageable, current treatment remains effective. #3 Sacral unstageable pressure ulcer- noted good progress, noted wound bed with pink in color 65%,maroon 15%, yellow 20% , current wound care effective. #4 Left heel DTI pressure ulcer- remains as dti,intact, digital engineer in color. presents with lovell color. Recommendation -Right Heel unstageable pressure ulcer and Sacral unstageable pressure ulcer, Cleanse with saline, pat dry, apply skin barrier film, apply Therahoney gel wound bed, cover Biatain Silicone drg daily and PRN soiled/dislodged -Right lateral 1st metatarsal head pressure ulcer with yellow scab adhered to wound bed and Left heel DTI pressure ulcer, Cleanse with saline, pat dry, apply skin barrier film daily and leave area open to air -Keep clean and dry -Turn and reposition -Low air loss mattress -Optimize nutrition -Offload both heels -Heel protector on both heels -Assess and f/u with MD for any changes of condition to skin noted. RUSH CAMPOS Mar 17, 2017 08:23
[2017-03-17] MEDS: Depakote 125mg Sprinkles GT SCH ×2 (09:22→20:09)
[2017-03-17] MEDS: levETIRAcetam 500mg/5ml Liquid GT SCH ×2 (09:23→20:09)
[2017-03-17] MEDS: Heparin 5000 units/ml inj SUBQ SCH ×2 (09:37→20:10)
[2017-03-17] MEDS: Pantoprazole Inj IV SCH (10:06)
[2017-03-17 12:13] VITALS: BP 118/68
--- NOTE | 2017-03-17 13:04 | Diagnostic Imaging Report ---
Indication: Shortness of breath Technique: One view of the chest Comparison: 05/15/2016 Findings: Again demonstrated are atelectatic at the right lung base, semilunar lucency at left lung base, tracheostomy. Normal heart size. No significant change Impression: Unchanged, over 2 days, findings as above.
--- NOTE | 2017-03-17 15:09 | General Progress Note ---
Assessment/Plan Problem List: (1) UTI (urinary tract infection) Assessment & Plan: 2/2 MDR Klebsiella ICD Codes: N39.0 - Urinary tract infection, site not specified SNOMED: 81450381 Qualifiers: Qualified Codes: T83.511A - Infection and inflammatory reaction due to indwelling urethral catheter, initial encounter; N39.0 - Urinary tract infection , site not specified (2) Aspiration pneumonia ICD Codes: J69.0 - Pneumonitis due to inhalation of food and vomit SNOMED: 115663453 (3) Acute toxic metabolic encephalopathy (4) Chronic respiratory failure Assessment & Plan: with hypoxia s/p tracheostomy ICD Codes: J96.10 - Chronic respiratory failure, unspecified whether with hypoxia or hypercapnia SNOMED: 88233121 (5) Paroxysmal A-fib ICD Codes: I48.0 - Paroxysmal atrial fibrillation SNOMED: 243003339 (6) Advanced dementia ICD Codes: F03.90 - Unspecified dementia without behavioral disturbance SNOMED: 91183484 (7) Functional quadriplegia ICD Codes: R53.2 - Functional quadriplegia SNOMED: 445576727684626 (8) Tracheostomy in place ICD Codes: Z93.0 - Tracheostomy status SNOMED: 639495031 (9) S/P percutaneous endoscopic gastrostomy (PEG) tube placement ICD Codes: Z93.1 - Gastrostomy status SNOMED: 983706013 (10) Anemia ICD Codes: D64.9 - Anemia, unspecified SNOMED: 983275668 Qualifiers: Qualified Codes: D64.9 - Anemia, unspecified (11) Gastritis ICD Codes: K29.70 - Gastritis, unspecified, without bleeding SNOMED: 3451933 (12) Seizure disorder ICD Codes: G40.909 - Epilepsy, unspecified, not intractable, without status epilepticus SNOMED: 130889109 (13) HTN (hypertension) ICD Codes: I10 - Essential (primary) hypertension SNOMED: 69556576 (14) Diabetes mellitus ICD Codes: E11.9 - Type 2 diabetes mellitus without complications SNOMED: 81118481 Qualifiers: Qualified Codes: E11.8 - Type 2 diabetes mellitus with unspecified complications (15) Pressure ulcer Assessment & Plan: #1 Right lateral 1st metatarsal head pressure ulcer with yellow scab adhered to wound bed #2 Right Heel unstageable pressure ulcer #3 Sacral unstageable pressure ulcer #4 Left heel DTI pressure ulcer ICD Codes: L89.90 - Pressure ulcer of unspecified site, unspecified stage SNOMED: 710874124 Status: stable Assessment/Plan s/p Vancomycin, polymyxin, cefepime and flagyl (course ended 03/14/17 per ID) s/p levaquin, cefepime and amikacin in ED on 03/04 ID and pulm consulted, appreciate rec's s/p olvera exchange on 03/05/17 F/u cultures--urine cx w/ >100K Klebsiella w/ carbapenem resistance Cont O2 via trach PRN Duonebs PRN Trend CBC, BMP Cont SNF meds Supportive care Wound care CM consulted for d/c back to SNF, awaiting placement. Pt has run out of Medicare SNF days and he has no secondary insurance. He has not qualified for [facility] in past. Awaiting discussion w/ son. Consider home w/ hospice if family agrees. Family stating they are not able to care for pt at home. Son is appealing d/c per CM SW consulted for possible APS DVT Prophylaxis: SCD, HSQ Code Status: Full Hospital Classification Declaration: Based on this initial evaluation, and depending on the patient's clinical course, I anticipate that this patient will require hospitalization for 1-2 days for UTI, AMS and close respiratory/ hemodynamic monitoring. Disposition: Once the patient is stable to leave the hospital, I anticipate the patient will likely be discharged to the following environment: back to SNF vs home w/ hospice or health health + caregiver Discussed with patient/family, nursing staff, SW/CM, pulm, ID regarding clinical status, treatment course, and disposition planning. D/w ID re plan for abx Time of note may not reflect time of encounter. Subjective Date patient seen: Mar 17, 2017 Time patient seen: 15:09 ROS Limited/Unobtainable: Yes Allergies: Coded Allergies: No Known Allergies (Unverified , 01/02/17) Subjective No acute o/n events HDS Urine cx shows >100K Klebisella w/ carbapenem resistance Olvera exchanged on 03/06/17 Now off abx per ID Awaiting placement. Spoke to pt's who deferred to son Manuelito. Left msg for Manuelito, awaiting call back. Son appealing discharge per CM Pt bedbound and nonverbal at baseline Unable to obtain ROS 2/2 dementia and pt nonverbal Objective Last 24 Hour Vital Signs Date Time Temp Pulse Resp B/P (MAP) Pulse Ox O2 Delivery O2 Flow Rate FiO2 03/17/17 13:26 T-piece 12.0 30 03/17/17 13:25 98 T-piece 8.0 30 03/17/17 12:13 98.4 107 21 118/68 96 03/17/17 08:15 97.7 118 20 127/78 97 03/17/17 07:16 T-piece 12.0 35 03/17/17 07:16 105 20 T-piece 12.0 35 03/17/17 07:16 97 T-piece 12.0 35 03/17/17 04:00 T-piece 8.0 03/17/17 04:00 97.2 72 22 134/79 100 T-piece 03/17/17 01:20 Trach Collar 12.0 30 03/17/17 01:20 99 Trach Collar 12.0 30 03/17/17 00:00 98.3 98 18 120/72 99 Trach Collar 10.0 03/17/17 00:00 T-piece 8.0 03/16/17 20:45 Trach Collar 12.0 30 03/16/17 20:45 99 Trach Collar 12.0 30 03/16/17 20:45 100 18 Trach Collar 10.0 30 03/16/17 20:00 T-piece 7.0 03/16/17 20:00 98.5 98 18 105/63 100 Trach Collar 10.0 03/16/17 16:00 97.5 66 22 115/49 100 Trach Collar 10.0 Height (Feet): 6 Height (Inches): 0.00 Weight (Pounds): 180 Objective General: eyes closed, nonverbal, unresponsive to voice and painful stimuli Head: normocephalic, without obvious abnormality, atraumatic Eyes: conjunctivae/corneas clear. PERRL, EOM's intact Throat: lips, mucosa, and tongue normal. MMM Neck: supple, symmetrical, trachea midline, and no JVD Lungs: +rhonchi b/l, decreased breath sounds on L side Heart: regular rate and rhythm, S1, S2 normal, no murmur, click, rub or gallop Abdomen: soft, non-tender, non-distended, bowel sounds normal; no masses or organomegaly Extremities: extremities normal, atraumatic, no cyanosis or edema Pulses: 2+ and symmetric Skin: skin color, texture, turgor normal; no rashes or lesions Neurologic: unable to assess Travis Hinojosa M.D. Mar 17, 2017 15:09
[2017-03-17 16:00] VITALS: BP 107/67
[2017-03-17] MEDS ORDERED: Glycopyrrolate 0.2mg/ml 1ml Vial IV PRN (17:00)
[2017-03-17 19:24] VITALS: BP 127/63
--- NOTE | 2017-03-17 21:51 | Infectious Diseases Prog Note ---
Assessment/Plan Assessment/Plan A) 1) KPC/Klebsiella uti, pseudomonas pna/providencia pna, proteus/strep/staph aureus/enterococcus sacral wound infection - clinically stable - s/p abx 2) chronic olvera, elevated cr noted 3) trach, no vent 4) sz, dm, htn, anemia, arrhythmia, af, dementia, qp, cva, weakness, dysphagia, g-tube 5) allergies - negative, fh-nc, sh-negative, mar noted, notes and records noted 6) d/w RN P) 1) observe off abx 2) f/u on labs and chest x-ray - chest x-ray ordered for 03/18 3) wound care per protocol 4) continue treatment per primary and consultants 5) orders entered and noted Subjective Constitutional: Denies: fever HEENT: Denies: congestion Respiratory: Denies: shortness of breath Cardiovascular: Denies: chest pain Gastrointestinal/Abdominal: Denies: nausea, vomiting, diarrhea Genitourinary: Reports: other - + olvera Neurologic: Reports: weakness Skin: Denies: rash Hematologic: Denies: bleeding Allergies: Coded Allergies: No Known Allergies (Unverified , 01/02/17) Objective Vital Signs Last 24 Hour Vital Signs Date Time Temp Pulse Resp B/P (MAP) Pulse Ox O2 Delivery O2 Flow Rate FiO2 03/17/17 20:00 T-piece 8.0 03/17/17 19:58 T-piece 8.0 30 03/17/17 19:58 98 T-piece 8.0 30 03/17/17 19:24 98.1 20 127/63 96 Trach Collar 03/17/17 19:00 74 20 T-piece 8.0 30 03/17/17 16:00 98.1 101 20 107/67 94 Trach Collar 10.0 03/17/17 13:26 T-piece 12.0 30 03/17/17 13:25 98 T-piece 8.0 30 03/17/17 12:23 T-piece 7.0 03/17/17 12:13 98.4 107 21 118/68 96 03/17/17 08:15 97.7 118 20 127/78 97 03/17/17 07:16 T-piece 12.0 35 03/17/17 07:16 105 20 T-piece 12.0 35 03/17/17 07:16 97 T-piece 12.0 35 03/17/17 04:00 T-piece 8.0 03/17/17 04:00 97.2 72 22 134/79 100 T-piece 03/17/17 01:20 Trach Collar 12.0 30 03/17/17 01:20 99 Trach Collar 12.0 30 03/17/17 00:00 98.3 98 18 120/72 99 Trach Collar 10.0 03/17/17 00:00 T-piece 8.0 Height (Feet): 6 Height (Inches): 0.00 Weight (Pounds): 180 General Appearance: no acute distress HEENT: normocephalic, atraumatic, anicteric, mucous membranes moist, no JVD, status post trach Respiratory/Chest: crackles/rales, rhonchi - bilaterally Cardiovascular: normal rate, regular rhythm, no gallop/murmur, no JVD Abdomen: normal bowel sounds, soft, non tender, no organomegaly, non distended Genitourinary: other - + olvera - urine clearer Extremities: no cyanosis Skin: no rash Neurologic/Psychiatric: propulsion engineer II-XII grossly normal, motor weakness, other - occ opens eyes Lymphatic: no neck adenopathy Musculoskeletal: no effusion Objective 03/05 - chest x-ray Impression: New finding of left-sided pleural effusion Retrocardiac atelectasis and consolidation, new since previous study of 2016 Right basilar atelectasis, improved since 07/04/1703/06 - chest x-ray - Comparison: 03/04/2017 Findings: Slightly improved inspiration, with slightly decreased right basilar atelectasis. There is also decreased atelectasis at the left lung base. Tracheostomy remains. Impression: Preparation with improved bibasilar atelectasis. 03/10 - chest x-ray: Findings: Tracheostomy, bilateral basilar atelectasis, left basilar ovoid lucency , cholecystectomy clips are all unchanged. Impression: Unchanged, over 2 days, findings as above. 03/12/17- Impression: Is slight increased bibasilar atelectasis. Otherwise little change management lead 2 days, findings as noted 03/15 - chest x-ray - no change (report noted) Microbiology Date/Time Source Procedure Growth Status 03/05/17 05:50 Sputum Gram Stain - Final Complete 03/05/17 05:50 Sputum Culture - Final Pseudomonas Aeruginosa Providencia Stuartii Complete 03/04/17 17:00 Stool Clostridium difficile Toxin Assay - Final Complete 03/04/17 12:30 Urine,Clean Catch Urine Culture - Final K.pneumoniae Carbapenem Resist Complete 03/04/17 19:00 Sacral Wound Gram Stain - Final Complete 03/04/17 19:00 Wound Culture - Final Proteus Mirabilis Staphylococcus Aureus - Mrsa Enterococcus Faecalis Complete Labs Test 03/16/17 05:10 White Blood Count 8.1 K/UL (4.8-10.8) Red Blood Count 3.77 M/UL (4.70-6.10) Hemoglobin 11.1 G/DL (14.2-18.0) Hematocrit 34.1 % (42.0-52.0) Mean Corpuscular Volume 91 FL (80-99) Mean Corpuscular Hemoglobin 29.4 PG (27.0-31.0) Mean Corpuscular Hemoglobin Concent 32.5 G/DL (32.0-36.0) Red Cell Distribution Width 15.7 % (11.6-14.8) Platelet Count 336 K/UL (150-450) Mean Platelet Volume 6.8 FL (6.5-10.1) Neutrophils (%) (Auto) 51.5 % (45.0-75.0) Lymphocytes (%) (Auto) 31.7 % (20.0-45.0) Monocytes (%) (Auto) 13.1 % (1.0-10.0) Eosinophils (%) (Auto) 2.8 % (0.0-3.0) Basophils (%) (Auto) 0.9 % (0.0-2.0) Sodium Level 138 MMOL/L (136-145) Potassium Level 3.5 MMOL/L (3.5-5.1) Chloride Level 96 MMOL/L (98-107) Carbon Dioxide Level 39 MMOL/L (21-32) Anion Gap 3 mmol/L (5-15) Blood Urea Nitrogen 20 mg/dL (7-18) Creatinine 1.4 MG/DL (0.55-1.30) Estimat Glomerular Filtration Rate mL/min (>60) Glucose Level 156 MG/DL (74-106) Calcium Level 10.3 MG/DL (8.5-10.1) Phosphorus Level 4.1 MG/DL (2.5-4.9) Magnesium Level 1.8 MG/DL (1.8-2.4) Total Bilirubin 0.2 MG/DL (0.2-1.0) Aspartate Amino Transf (AST/SGOT) 20 U/L (15-37) Alanine Aminotransferase (ALT/SGPT) 11 U/L (12-78) Alkaline Phosphatase 121 U/L (46-116) Total Protein 9.0 G/DL (6.4-8.2) Albumin 2.5 G/DL (3.4-5.0) Globulin 6.5 g/dL Albumin/Globulin Ratio 0.4 (1.0-2.7) Current Medications Medications (Trade) Dose Ordered Sig/Dorie Route PRN Reason Start Time Stop Time Status Last Admin Dose Admin Acetaminophen (Tylenol) 650 mg Q4H PRN ORAL T>100.5 03/07/17 03:30 04/03/17 15:29 Dextrose (Dextrose 50%) STAT PRN IV Hypoglycemia 03/07/17 15:30 04/03/17 15:29 Divalproex Sodium (Depakote Sprinkles) 250 mg Q12HR GT 03/07/17 09:00 04/03/17 20:59 03/17/17 20:09 Glycopyrrolate (Robinul) 0.2 mg Q8H PRN IV large secretions 03/17/17 17:00 04/16/17 16:59 03/17/17 20:09 Heparin Sodium (Porcine) (Heparin 5000 units/ml) 5,000 units EVERY 12 HOURS SUBQ 03/07/17 09:00 04/03/17 20:59 03/17/17 20:10 Insulin Aspart (NovoLOG) Q6HR SUBQ 03/07/17 00:00 04/03/17 20:59 03/17/17 18:13 Levetiracetam (Keppra) 500 mg Q12HR GT 03/07/17 09:00 04/03/17 20:59 03/17/17 20:09 Ondansetron HCl (Zofran) 4 mg Q6H PRN IVP Nausea & Vomiting 03/07/17 03:30 04/03/17 15:29 Pantoprazole (Protonix) 40 mg DAILY IV 03/07/17 09:00 04/04/17 08:59 03/17/17 10:06 Polyethylene Glycol (Miralax) 17 gm DAILYPRN PRN GT Constipation 03/07/17 18:15 04/06/17 18:14 03/17/17 06:19 JENNIFER BEVERLY Mar 17, 2017 21:51
[2017-03-18] VITALS (7 sets, daily range): BP systolic 96–131; BP diastolic 54–64
--- NOTE | 2017-03-18 00:56 | General Progress Note ---
Assessment/Plan Status: stable Assessment/Plan encephalopathy -no med changes Subjective Date patient seen: Mar 17, 2017 Allergies: Coded Allergies: No Known Allergies (Unverified , 01/02/17) Subjective the pt is pw waxing and waning of consciousness. calm Objective Last 24 Hour Vital Signs Date Time Temp Pulse Resp B/P (MAP) Pulse Ox O2 Delivery O2 Flow Rate FiO2 03/18/17 00:05 97.6 92 20 114/57 100 Trach Collar 03/18/17 00:02 T-piece 8.0 30 03/18/17 00:02 97 T-piece 8.0 30 03/17/17 20:00 T-piece 8.0 03/17/17 19:58 T-piece 8.0 30 03/17/17 19:58 98 T-piece 8.0 30 03/17/17 19:24 98.1 20 127/63 96 Trach Collar 03/17/17 19:00 74 20 T-piece 8.0 30 03/17/17 16:00 98.1 101 20 107/67 94 Trach Collar 10.0 03/17/17 13:26 T-piece 12.0 30 03/17/17 13:25 98 T-piece 8.0 30 03/17/17 12:23 T-piece 7.0 03/17/17 12:13 98.4 107 21 118/68 96 03/17/17 08:15 97.7 118 20 127/78 97 03/17/17 07:16 T-piece 12.0 35 03/17/17 07:16 105 20 T-piece 12.0 35 03/17/17 07:16 97 T-piece 12.0 35 03/17/17 04:00 T-piece 8.0 03/17/17 04:00 97.2 72 22 134/79 100 T-piece 03/17/17 01:20 Trach Collar 12.0 30 03/17/17 01:20 99 Trach Collar 12.0 30 Height (Feet): 6 Height (Inches): 0.00 Weight (Pounds): 180 General Appearance: no apparent distress, lethargic Neurologic: disoriented, depressed affect Fortunato Aldrich M.D. Mar 18, 2017 00:56
[2017-03-18] MEDS: NovoLOG Insulin Flexpen SUBQ SCH ×4 (00:59→17:31)
[2017-03-18 07:17] LABS: BASOPHILS % (AUTO) 1.1 % (0.0-2.0); EOSINOPHILS % (AUTO) 1.8 % (0.0-3.0); LYMPHOCYTES % (AUTO) 28.7 % (20.0-45.0); MEAN CORPUSCULAR HGB CONC 32.1 G/DL (32.0-36.0); MEAN CORPUSCULAR VOLUME 91 FL (80-99); MEAN PLATELET VOLUME 7.6 FL (6.5-10.1); MONOCYTES % (AUTO) 15.7 % (1.0-10.0); NEUTROPHILS % (AUTO) 52.7 % (45.0-75.0); PLATELET COUNT 272 K/UL (150-450); RED BLOOD COUNT 3.45 M/UL (4.70-6.10); RED CELL DISTRIBUTION WIDTH 15.8 % (11.6-14.8); WHITE BLOOD COUNT 8.3 K/UL (4.8-10.8)
[2017-03-18 08:45] LABS: ANION GAP 6 mmol/L (5-15); CALCIUM 9.7 MG/DL (8.5-10.1); CARBON DIOXIDE 35 MMOL/L (21-32); CHLORIDE 95 MMOL/L (98-107); CREATININE 1.2 MG/DL (0.55-1.30); POTASSIUM 4.8 MMOL/L (3.5-5.1); SODIUM 136 MMOL/L (136-145)
[2017-03-18] MEDS: Depakote 125mg Sprinkles GT SCH ×2 (10:21→22:13)
[2017-03-18] MEDS: levETIRAcetam 500mg/5ml Liquid GT SCH ×2 (10:21→22:13)
[2017-03-18] MEDS: Pantoprazole Inj IV SCH (10:21)
[2017-03-18] MEDS: Heparin 5000 units/ml inj SUBQ SCH ×2 (10:22→22:15)
--- NOTE | 2017-03-18 13:45 | Diagnostic Imaging Report ---
Indication: COUGH, shortness of breath Technique: One view of the chest Comparison: 03/17/2017 Findings: Tracheostomy is again demonstrated. There is suggestion of increasing consolidation at the left lung base, left hemidiaphragm now obscured. Minimal atelectasis at the right lung base persists, unchanged. Cholecystectomy clips are again demonstrated. Heart size is upper limits normal. Impression: Suspect developing consolidation of the left lung base. Correlate with clinical findings
--- NOTE | 2017-03-18 16:22 | Pulmonology Progress Note ---
Assessment/Plan Problems: (1) Sepsis (2) Nosocomial pneumonia (3) Anemia (4) Sacral decubitus ulcer (5) Paroxysmal a-fib (6) G tube feedings (7) Advanced dementia (8) Tracheostomy in place (9) Functional quadriplegia Assessment/Plan somnolent, comfortable continue abx, Cefepime, Colistin, Flagyl frequent suctioning tolerating feeding wound care. all reviewed check labs in am pt;s son appealed discharge and disappeared. Subjective ROS Limited/Unobtainable: No Constitutional: Reports: no symptoms HEENT: Repors: no symptoms Respiratory: Reports: no symptoms Allergies: Coded Allergies: No Known Allergies (Unverified , 01/02/17) Objective Last 24 Hour Vital Signs Date Time Temp Pulse Resp B/P (MAP) Pulse Ox O2 Delivery O2 Flow Rate FiO2 03/18/17 15:59 97.7 86 20 96/64 99 03/18/17 13:19 100 T-piece 8.0 30 03/18/17 13:19 T-piece 8.0 30 03/18/17 12:15 97.3 81 18 131/63 99 03/18/17 08:15 98.6 81 21 112/54 97 03/18/17 07:50 99 T-piece 8.0 30 03/18/17 07:50 T-piece 8.0 30 03/18/17 04:13 98.1 88 20 108/57 99 Trach Collar 03/18/17 04:00 T-piece 8.0 03/18/17 00:05 97.6 92 20 114/57 100 Trach Collar 03/18/17 00:02 T-piece 8.0 30 03/18/17 00:02 97 T-piece 8.0 30 03/18/17 00:00 T-piece 8.0 03/17/17 20:00 T-piece 8.0 03/17/17 19:58 T-piece 8.0 30 03/17/17 19:58 98 T-piece 8.0 30 03/17/17 19:24 98.1 20 127/63 96 Trach Collar 03/17/17 19:00 74 20 T-piece 8.0 30 Intake and Output 03/18/17 03/19/17 19:00 07:00 # Bowel Movements 2 Objective General Appearance: WD/WN HEENT: normocephalic, anicteric, trach intact Cardiovascular: normal peripheral pulses, normal rate Abdomen: normal bowel sounds, no organomegaly Genitourinary: normal external genitalia Extremities: no clubbing Skin: no lesions Lymphatic: no neck adenopathy Laboratory Tests 03/18/17 05:00: White Blood Count 8.3, Red Blood Count 3.45L, Hemoglobin 10.0L, Hematocrit 31.2L , Mean Corpuscular Volume 91, Mean Corpuscular Hemoglobin 29.0, Mean Corpuscular Hemoglobin Concent 32.1, Red Cell Distribution Width 15.8H, Platelet Count 272, Mean Platelet Volume 7.6, Neutrophils (%) (Auto) 52.7, Lymphocytes (%) (Auto) 28.7, Monocytes (%) (Auto) 15.7H, Eosinophils (%) (Auto) 1.8, Basophils (%) (Auto) 1.1, Sodium Level 136, Potassium Level 4.8, Chloride Level 95L, Carbon Dioxide Level 35H, Anion Gap 6, Blood Urea Nitrogen 26H, Creatinine 1.2, Estimat Glomerular Filtration Rate , Glucose Level 171H, Calcium Level 9.7 Current Medications Medications (Trade) Dose Ordered Sig/Dorie Route PRN Reason Start Time Stop Time Status Last Admin Dose Admin Acetaminophen (Tylenol) 650 mg Q4H PRN ORAL T>100.5 03/07/17 03:30 04/03/17 15:29 Dextrose (Dextrose 50%) STAT PRN IV Hypoglycemia 03/07/17 15:30 04/03/17 15:29 Divalproex Sodium (Depakote Sprinkles) 250 mg Q12HR GT 03/07/17 09:00 04/03/17 20:59 03/18/17 10:21 Glycopyrrolate (Robinul) 0.2 mg Q8H PRN IV large secretions 03/17/17 17:00 04/16/17 16:59 03/17/17 20:09 Heparin Sodium (Porcine) (Heparin 5000 units/ml) 5,000 units EVERY 12 HOURS SUBQ 03/07/17 09:00 04/03/17 20:59 03/18/17 10:22 Insulin Aspart (NovoLOG) Q6HR SUBQ 03/07/17 00:00 04/03/17 20:59 03/18/17 11:55 Levetiracetam (Keppra) 500 mg Q12HR GT 03/07/17 09:00 04/03/17 20:59 03/18/17 10:21 Ondansetron HCl (Zofran) 4 mg Q6H PRN IVP Nausea & Vomiting 03/07/17 03:30 04/03/17 15:29 Pantoprazole (Protonix) 40 mg DAILY IV 03/07/17 09:00 04/04/17 08:59 03/18/17 10:21 Polyethylene Glycol (Miralax) 17 gm DAILYPRN PRN GT Constipation 03/07/17 18:15 04/06/17 18:14 03/17/17 06:19 BAM SCHAEFFER Mar 18, 2017 16:22
[2017-03-18] MEDS ORDERED: Amikacin Rx to dose MISC PRN (18:15)
--- NOTE | 2017-03-18 18:15 | Infectious Diseases Prog Note ---
Assessment/Plan Assessment/Plan A) 1) worsening consolidation on chest x-ray, ? new aspiration pna/HCAP, hx KPC /Klebsiella uti, hx pseudomonas pna/providencia pna, 2) proteus/strep/staph aureus/enterococcus sacral wound infection - s/p abx, sacral wound clean and other wounds stable 3) chronic olvera, elevated cr noted 4) trach, no vent 5) sz, dm, htn, anemia, arrhythmia, af, dementia, qp, cva, weakness, dysphagia, g-tube 6) allergies - negative, fh-nc, sh-negative, mar noted, notes and records noted 7) d/w RN P) 1) restart abx amikacin, cefepime and vancomycin 2) check labs, sc, and f/u chest x-ray 3) wound care per protocol 4) continue treatment per primary and consultants 5) orders entered and noted Subjective Constitutional: Denies: fever HEENT: Reports: congestion - mild Respiratory: Reports: shortness of breath - mild Cardiovascular: Denies: chest pain Gastrointestinal/Abdominal: Denies: nausea, vomiting, diarrhea Genitourinary: Reports: other - + olvera Neurologic: Denies: headache Psychiatric: Denies: depression Skin: Denies: rash Hematologic: Denies: bleeding Musculoskeletal: Denies: pain Allergies: Coded Allergies: No Known Allergies (Unverified , 01/02/17) Objective Vital Signs Last 24 Hour Vital Signs Date Time Temp Pulse Resp B/P (MAP) Pulse Ox O2 Delivery O2 Flow Rate FiO2 03/18/17 15:59 97.7 86 20 96/64 99 03/18/17 13:19 100 T-piece 8.0 30 03/18/17 13:19 T-piece 8.0 30 03/18/17 12:15 97.3 81 18 131/63 99 03/18/17 08:15 98.6 81 21 112/54 97 03/18/17 07:50 99 T-piece 8.0 30 03/18/17 07:50 T-piece 8.0 30 03/18/17 04:13 98.1 88 20 108/57 99 Trach Collar 03/18/17 04:00 T-piece 8.0 03/18/17 00:05 97.6 92 20 114/57 100 Trach Collar 03/18/17 00:02 T-piece 8.0 30 03/18/17 00:02 97 T-piece 8.0 30 03/18/17 00:00 T-piece 8.0 03/17/17 20:00 T-piece 8.0 03/17/17 19:58 T-piece 8.0 30 03/17/17 19:58 98 T-piece 8.0 30 03/17/17 19:24 98.1 20 127/63 96 Trach Collar 03/17/17 19:00 74 20 T-piece 8.0 30 Height (Feet): 6 Height (Inches): 0.00 Weight (Pounds): 180 General Appearance: no acute distress HEENT: normocephalic, atraumatic, anicteric, mucous membranes moist, EOMI, supple, no JVD, status post trach Respiratory/Chest: crackles/rales, rhonchi - bilaterally Cardiovascular: normal rate, regular rhythm, no gallop/murmur, no JVD Abdomen: normal bowel sounds, soft, non tender, no organomegaly, non distended Genitourinary: other - + olvera - urine slt cloudy Extremities: no cyanosis Skin: no rash, other - wounds - noted, sacral wound clean, other wounds stable Neurologic/Psychiatric: alert, motor weakness, other - opens eyes, generalized weakness Lymphatic: no neck adenopathy Musculoskeletal: no effusion Objective 03/18 - chest x-ray - Impression: Suspect developing consolidation of the left lung base. Correlate with clinical findings Microbiology Date/Time Source Procedure Growth Status 03/05/17 05:50 Sputum Gram Stain - Final Complete 03/05/17 05:50 Sputum Culture - Final Pseudomonas Aeruginosa Providencia Stuartii Complete 03/04/17 17:00 Stool Clostridium difficile Toxin Assay - Final Complete 03/04/17 12:30 Urine,Clean Catch Urine Culture - Final K.pneumoniae Carbapenem Resist Complete 03/04/17 19:00 Sacral Wound Gram Stain - Final Complete 03/04/17 19:00 Wound Culture - Final Proteus Mirabilis Staphylococcus Aureus - Mrsa Enterococcus Faecalis Complete Laboratory Tests Test 03/18/17 05:00 White Blood Count 8.3 K/UL (4.8-10.8) Red Blood Count 3.45 M/UL (4.70-6.10) L Hemoglobin 10.0 G/DL (14.2-18.0) L Hematocrit 31.2 % (42.0-52.0) L Mean Corpuscular Volume 91 FL (80-99) Mean Corpuscular Hemoglobin 29.0 PG (27.0-31.0) Mean Corpuscular Hemoglobin Concent 32.1 G/DL (32.0-36.0) Red Cell Distribution Width 15.8 % (11.6-14.8) H Platelet Count 272 K/UL (150-450) Mean Platelet Volume 7.6 FL (6.5-10.1) Neutrophils (%) (Auto) 52.7 % (45.0-75.0) Lymphocytes (%) (Auto) 28.7 % (20.0-45.0) Monocytes (%) (Auto) 15.7 % (1.0-10.0) H Eosinophils (%) (Auto) 1.8 % (0.0-3.0) Basophils (%) (Auto) 1.1 % (0.0-2.0) Sodium Level 136 MMOL/L (136-145) Potassium Level 4.8 MMOL/L (3.5-5.1) Chloride Level 95 MMOL/L (98-107) L Carbon Dioxide Level 35 MMOL/L (21-32) H Anion Gap 6 mmol/L (5-15) Blood Urea Nitrogen 26 mg/dL (7-18) H Creatinine 1.2 MG/DL (0.55-1.30) Estimat Glomerular Filtration Rate mL/min (>60) Glucose Level 171 MG/DL (74-106) H Calcium Level 9.7 MG/DL (8.5-10.1) Current Medications Medications (Trade) Dose Ordered Sig/Dorie Route PRN Reason Start Time Stop Time Status Last Admin Dose Admin Acetaminophen (Tylenol) 650 mg Q4H PRN ORAL T>100.5 03/07/17 03:30 04/03/17 15:29 Dextrose (Dextrose 50%) STAT PRN IV Hypoglycemia 03/07/17 15:30 04/03/17 15:29 Divalproex Sodium (Depakote Sprinkles) 250 mg Q12HR GT 03/07/17 09:00 04/03/17 20:59 03/18/17 10:21 Glycopyrrolate (Robinul) 0.2 mg Q8H PRN IV large secretions 11/29/17 17:00 04/16/17 16:59 03/17/17 20:09 Heparin Sodium (Porcine) (Heparin 5000 units/ml) 5,000 units EVERY 12 HOURS SUBQ 03/07/17 09:00 04/03/17 20:59 03/18/17 10:22 Insulin Aspart (NovoLOG) Q6HR SUBQ 03/07/17 00:00 04/03/17 20:59 03/18/17 17:31 Levetiracetam (Keppra) 500 mg Q12HR GT 03/07/17 09:00 04/03/17 20:59 03/18/17 10:21 Ondansetron HCl (Zofran) 4 mg Q6H PRN IVP Nausea & Vomiting 03/07/17 03:30 04/03/17 15:29 Pantoprazole (Protonix) 40 mg DAILY IV 03/07/17 09:00 04/04/17 08:59 03/18/17 10:21 Polyethylene Glycol (Miralax) 17 gm DAILYPRN PRN GT Constipation 03/07/17 18:15 04/06/17 18:14 03/17/17 06:19 JENNIFER BEVERLY Mar 18, 2017 18:15
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
[2017-03-18] MEDS ORDERED: Amikacin 1,200 MG in NS 110 ML IV SCH (20:00)
[2017-03-18] MEDS: Vancomycin 1.5 GM/D5W 250ML IVPB SCH (22:00)
--- NOTE | 2017-03-18 23:07 | General Progress Note ---
Assessment/Plan Status: stable Assessment/Plan encephalopathy -no med changes Subjective Allergies: Coded Allergies: No Known Allergies (Unverified , 01/02/17) Subjective the pt is pw waxing and waning of consciousness. calm. non verbal Objective Last 24 Hour Vital Signs Date Time Temp Pulse Resp B/P (MAP) Pulse Ox O2 Delivery O2 Flow Rate FiO2 03/18/17 19:58 T-piece 8.0 30 03/18/17 19:57 94 T-piece 8.0 30 03/18/17 19:57 98.9 88 18 130/62 100 Trach Collar 9.0 03/18/17 15:59 97.7 86 20 96/64 99 03/18/17 13:19 100 T-piece 8.0 30 03/18/17 13:19 T-piece 8.0 30 03/18/17 12:15 97.3 81 18 131/63 99 03/18/17 08:15 98.6 81 21 112/54 97 03/18/17 07:50 99 T-piece 8.0 30 03/18/17 07:50 T-piece 8.0 30 03/18/17 04:13 98.1 88 20 108/57 99 Trach Collar 03/18/17 04:00 T-piece 8.0 03/18/17 00:05 97.6 92 20 114/57 100 Trach Collar 03/18/17 00:02 T-piece 8.0 30 03/18/17 00:02 97 T-piece 8.0 30 03/18/17 00:00 T-piece 8.0 Intake and Output 03/18/17 03/19/17 19:00 07:00 Intake Total 1070 ml 539.8 ml Balance 1070 ml 539.8 ml Intake Free Water 300 ml 150 ml IV Total 164.8 ml Tube Feeding 620 ml 165 ml Blood Product 150 ml 60 ml # Voids 3 # Bowel Movements 3 Laboratory Tests 03/18/17 05:00: White Blood Count 8.3, Red Blood Count 3.45L, Hemoglobin 10.0L, Hematocrit 31.2L , Mean Corpuscular Volume 91, Mean Corpuscular Hemoglobin 29.0, Mean Corpuscular Hemoglobin Concent 32.1, Red Cell Distribution Width 15.8H, Platelet Count 272, Mean Platelet Volume 7.6, Neutrophils (%) (Auto) 52.7, Lymphocytes (%) (Auto) 28.7, Monocytes (%) (Auto) 15.7H, Eosinophils (%) (Auto) 1.8, Basophils (%) (Auto) 1.1, Sodium Level 136, Potassium Level 4.8, Chloride Level 95L, Carbon Dioxide Level 35H, Anion Gap 6, Blood Urea Nitrogen 26H, Creatinine 1.2, Estimat Glomerular Filtration Rate , Glucose Level 171H, Calcium Level 9.7 Height (Feet): 6 Height (Inches): 0.00 Weight (Pounds): 180 General Appearance: lethargic, confused Fortunato Aldrich M.D. Mar 18, 2017 23:07
[2017-03-19] MEDS: NovoLOG Insulin Flexpen SUBQ SCH ×5 (00:57→23:37)
[2017-03-19 04:00] VITALS: BP 115/78
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
[2017-03-19 08:25] LABS: BASOPHILS % (AUTO) 0.7 % (0.0-2.0); EOSINOPHILS % (AUTO) 1.6 % (0.0-3.0); LYMPHOCYTES % (AUTO) 26.6 % (20.0-45.0); MEAN CORPUSCULAR HEMOGLOBIN 28.6 PG (27.0-31.0); MEAN CORPUSCULAR HGB CONC 31.4 G/DL (32.0-36.0); MEAN CORPUSCULAR VOLUME 91 FL (80-99); MEAN PLATELET VOLUME 7.5 FL (6.5-10.1); MONOCYTES % (AUTO) 13.7 % (1.0-10.0); NEUTROPHILS % (AUTO) 57.3 % (45.0-75.0); PLATELET COUNT 267 K/UL (150-450); RED BLOOD COUNT 3.67 M/UL (4.70-6.10); RED CELL DISTRIBUTION WIDTH 15.3 % (11.6-14.8); WHITE BLOOD COUNT 6.8 K/UL (4.8-10.8)
[2017-03-19] MEDS: Heparin 5000 units/ml inj SUBQ SCH ×2 (08:27→21:08)
[2017-03-19] MEDS: levETIRAcetam 500mg/5ml Liquid GT SCH ×2 (08:27→21:06)
[2017-03-19] MEDS: Pantoprazole Inj IV SCH (08:28)
[2017-03-19] MEDS: Depakote 125mg Sprinkles GT SCH ×2 (08:28→21:06)
[2017-03-19 08:34] VITALS: BP 115/62
[2017-03-19 08:53] LABS: ANION GAP 4 mmol/L (5-15); CALCIUM 9.8 MG/DL (8.5-10.1); CARBON DIOXIDE 38 MMOL/L (21-32); CHLORIDE 94 MMOL/L (98-107); CREATININE 1.3 MG/DL (0.55-1.30); POTASSIUM 3.9 MMOL/L (3.5-5.1); SODIUM 136 MMOL/L (136-145)
--- NOTE | 2017-03-19 10:51 | Infectious Diseases Prog Note ---
Assessment/Plan Assessment/Plan A) 1) worsening consolidation on chest x-ray, ? new aspiration pna/HCAP, hx KPC /Klebsiella uti, hx pseudomonas pna/providencia pna, 2) proteus/strep/staph aureus/enterococcus sacral wound infection - s/p abx, sacral wound clean and other wounds stable 3) chronic olvera, elevated cr noted 4) trach, no vent 5) sz, dm, htn, anemia, arrhythmia, af, dementia, qp, cva, weakness, dysphagia, g-tube 6) allergies - negative, fh-nc, sh-negative, mar noted, notes and records noted 7) d/w RN P) 1) amikacin, cefepime and vancomycin 2) check labs, sc, and f/u chest x-ray 3) wound care per protocol 4) continue treatment per primary and consultants 5) orders entered and noted Subjective Constitutional: Denies: fever HEENT: Denies: congestion Respiratory: Denies: shortness of breath Cardiovascular: Denies: chest pain Gastrointestinal/Abdominal: Denies: nausea, vomiting, diarrhea Genitourinary: Reports: other - + olvera, Denies: dysuria, hematuria Neurologic: Denies: headache Psychiatric: Denies: depression Skin: Denies: rash Hematologic: Denies: bleeding Musculoskeletal: Denies: pain Allergies: Coded Allergies: No Known Allergies (Unverified , 01/02/17) Objective Vital Signs Last 24 Hour Vital Signs Date Time Temp Pulse Resp B/P (MAP) Pulse Ox O2 Delivery O2 Flow Rate FiO2 03/19/17 08:34 97.9 78 18 115/62 03/19/17 04:00 98.7 86 18 115/78 98 Trach Collar 03/19/17 01:11 T-piece 8.0 30 03/19/17 01:11 98 T-piece 8.0 30 03/19/17 00:00 Trach Collar 5.0 30 03/18/17 23:49 97.9 66 18 119/61 97 Trach Collar 9.0 03/18/17 20:00 Trach Collar 9.0 30 03/18/17 19:58 T-piece 8.0 30 03/18/17 19:57 94 T-piece 8.0 30 03/18/17 19:57 98.9 88 18 130/62 100 Trach Collar 9.0 03/18/17 15:59 97.7 86 20 96/64 99 03/18/17 13:19 100 T-piece 8.0 30 03/18/17 13:19 T-piece 8.0 30 03/18/17 12:15 97.3 81 18 131/63 99 Height (Feet): 6 Height (Inches): 0.00 Weight (Pounds): 180 General Appearance: no acute distress HEENT: normocephalic, atraumatic, anicteric, mucous membranes moist, EOMI, pharynx normal, supple, no JVD Respiratory/Chest: crackles/rales, rhonchi - bilaterally Cardiovascular: normal rate, regular rhythm, no gallop/murmur, no JVD Abdomen: normal bowel sounds, soft, non tender, no organomegaly, non distended Genitourinary: other - + olvera - urine clear Extremities: no cyanosis Skin: no rash 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 Correlate with clinical findings Microbiology Date/Time Source Procedure Growth Status 03/05/17 05:50 Sputum Gram Stain - Final Complete 03/05/17 05:50 Sputum Culture - Final Pseudomonas Aeruginosa Providencia Stuartii Complete 03/04/17 17:00 Stool Clostridium difficile Toxin Assay - Final Complete 03/04/17 12:30 Urine,Clean Catch Urine Culture - Final K.pneumoniae Carbapenem Resist Complete 03/04/17 19:00 Sacral Wound Gram Stain - Final Complete 03/04/17 19:00 Wound Culture - Final Proteus Mirabilis Staphylococcus Aureus - Mrsa Enterococcus Faecalis Complete Laboratory Tests Test 03/19/17 07:55 White Blood Count 6.8 K/UL (4.8-10.8) Red Blood Count 3.67 M/UL (4.70-6.10) L Hemoglobin 10.5 G/DL (14.2-18.0) L Hematocrit 33.5 % (42.0-52.0) L Mean Corpuscular Volume 91 FL (80-99) Mean Corpuscular Hemoglobin 28.6 PG (27.0-31.0) Mean Corpuscular Hemoglobin Concent 31.4 G/DL (32.0-36.0) L Red Cell Distribution Width 15.3 % (11.6-14.8) H Platelet Count 267 K/UL (150-450) Mean Platelet Volume 7.5 FL (6.5-10.1) Neutrophils (%) (Auto) 57.3 % (45.0-75.0) Lymphocytes (%) (Auto) 26.6 % (20.0-45.0) Monocytes (%) (Auto) 13.7 % (1.0-10.0) H Eosinophils (%) (Auto) 1.6 % (0.0-3.0) Basophils (%) (Auto) 0.7 % (0.0-2.0) Sodium Level 136 MMOL/L (136-145) Potassium Level 3.9 MMOL/L (3.5-5.1) Chloride Level 94 MMOL/L (98-107) L Carbon Dioxide Level 38 MMOL/L (21-32) H Anion Gap 4 mmol/L (5-15) L Blood Urea Nitrogen 27 mg/dL (7-18) H Creatinine 1.3 MG/DL (0.55-1.30) Estimat Glomerular Filtration Rate mL/min (>60) Glucose Level 204 MG/DL (74-106) H Calcium Level 9.8 MG/DL (8.5-10.1) Random Amikacin Level Pending Current Medications Medications (Trade) Dose Ordered Sig/Dorie Route PRN Reason Start Time Stop Time Status Last Admin Dose Admin Acetaminophen (Tylenol) 650 mg Q4H PRN ORAL T>100.5 03/07/17 03:30 04/03/17 15:29 Amikacin Protocol (Amikacin pharmacy to dose) 1 ea DAILY PRN MISC Per rx protocol 03/18/17 18:15 04/17/17 18:14 Amikacin Sulfate 1200 mg/Sodium Chloride 114.8 ml @ 229.6 mls/ hr Q36H IV 03/18/17 20:00 03/25/17 19:59 03/18/17 20:00 Cefepime HCl 1 gm/ Dextrose 50 ml @ 100 mls/hr Q12HR IVPB 03/18/17 21:00 03/25/17 20:59 03/19/17 08:29 Dextrose (Dextrose 50%) STAT PRN IV Hypoglycemia 03/07/17 15:30 04/03/17 15:29 Divalproex Sodium (Depakote Sprinkles) 250 mg Q12HR GT 03/07/17 09:00 04/03/17 20:59 03/19/17 08:28 Glycopyrrolate (Robinul) 0.2 mg Q8H PRN IV large secretions 03/17/17 17:00 04/16/17 16:59 03/17/17 20:09 Heparin Sodium (Porcine) (Heparin 5000 units/ml) 5,000 units EVERY 12 HOURS SUBQ 03/07/17 09:00 04/03/17 20:59 03/19/17 08:27 Insulin Aspart (NovoLOG) Q6HR SUBQ 03/07/17 00:00 04/03/17 20:59 03/19/17 05:52 Levetiracetam (Keppra) 500 mg Q12HR GT 03/07/17 09:00 04/03/17 20:59 03/19/17 08:27 Ondansetron HCl (Zofran) 4 mg Q6H PRN IVP Nausea & Vomiting 03/07/17 03:30 04/03/17 15:29 Pantoprazole (Protonix) 40 mg DAILY IV 03/07/17 09:00 04/04/17 08:59 03/19/17 08:28 Polyethylene Glycol (Miralax) 17 gm DAILYPRN PRN GT Constipation 03/07/17 18:15 04/06/17 18:14 03/17/17 06:19 Vancomycin HCl (Vanco rx to dose) 1 ea DAILY PRN MISC Per rx protocol 03/18/17 18:15 04/17/17 18:14 Vancomycin HCl/ Dextrose 250 ml @ 125 mls/hr Q24H IVPB 03/18/17 22:00 03/23/17 21:59 03/18/17 22:00 JENNIFER BEVERLY Mar 19, 2017 10:51
[2017-03-19 12:00] VITALS: BP 120/55
--- NOTE | 2017-03-19 15:17 | General Progress Note ---
Assessment/Plan Status: stable Assessment/Plan encephalopathy -no med changes Subjective Date patient seen: Mar 19, 2017 Allergies: Coded Allergies: No Known Allergies (Unverified , 01/02/17) Subjective the pt is pw waxing and waning of consciousness. calm. non verbal. not responsive Objective Last 24 Hour Vital Signs Date Time Temp Pulse Resp B/P (MAP) Pulse Ox O2 Delivery O2 Flow Rate FiO2 03/19/17 12:00 98.4 84 18 120/55 99 03/19/17 08:45 T-piece 8.0 30 03/19/17 08:45 98 T-piece 8.0 30 03/19/17 08:34 97.9 78 18 115/62 03/19/17 04:00 98.7 86 18 115/78 98 Trach Collar 03/19/17 01:11 T-piece 8.0 30 03/19/17 01:11 98 T-piece 8.0 30 03/19/17 00:00 Trach Collar 5.0 30 03/18/17 23:49 97.9 66 18 119/61 97 Trach Collar 9.0 03/18/17 20:00 Trach Collar 9.0 30 03/18/17 19:58 T-piece 8.0 30 03/18/17 19:57 94 T-piece 8.0 30 03/18/17 19:57 98.9 88 18 130/62 100 Trach Collar 9.0 03/18/17 15:59 97.7 86 20 96/64 99 Intake and Output 03/19/17 03/20/17 19:00 07:00 Intake Total 630 ml Balance 630 ml Intake Free Water 300 ml Tube Feeding 330 ml Laboratory Tests 03/19/17 07:55: White Blood Count 6.8, Red Blood Count 3.67L, Hemoglobin 10.5L, Hematocrit 33.5L , Mean Corpuscular Volume 91, Mean Corpuscular Hemoglobin 28.6, Mean Corpuscular Hemoglobin Concent 31.4L, Red Cell Distribution Width 15.3H, Platelet Count 267, Mean Platelet Volume 7.5, Neutrophils (%) (Auto) 57.3, Lymphocytes (%) (Auto) 26.6, Monocytes (%) (Auto) 13.7H, Eosinophils (%) (Auto) 1.6, Basophils (%) (Auto) 0.7, Sodium Level 136, Potassium Level 3.9, Chloride Level 94L, Carbon Dioxide Level 38H, Anion Gap 4L, Blood Urea Nitrogen 27H, Creatinine 1.3, Estimat Glomerular Filtration Rate , Glucose Level 204H, Calcium Level 9.8, Random Amikacin Level 20.2 Height (Feet): 6 Height (Inches): 0.00 Weight (Pounds): 180 General Appearance: no apparent distress, lethargic, confused Neurologic: disoriented, unresponsive, depressed affect Fortunato Aldrich M.D. Mar 19, 2017 15:17
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
[2017-03-19 16:00] VITALS: BP 115/54
[2017-03-19 20:00] VITALS: BP 115/59
[2017-03-19] MEDS: Vancomycin 1.5 GM/D5W 250ML IVPB SCH (21:59)
[2017-03-20] MEDS: NovoLOG Insulin Flexpen SUBQ SCH ×3 (05:49→18:12)
[2017-03-20 08:00] VITALS: BP 105/61
[2017-03-20] MEDS: Pantoprazole Inj IV SCH (09:29)
[2017-03-20] MEDS: Depakote 125mg Sprinkles GT SCH ×2 (09:29→21:04)
[2017-03-20] MEDS: levETIRAcetam 500mg/5ml Liquid GT SCH ×2 (09:29→21:05)
[2017-03-20] MEDS: Heparin 5000 units/ml inj SUBQ SCH ×2 (09:30→21:05)
[2017-03-20 12:00] VITALS: BP 123/57
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
--- NOTE | 2017-03-20 14:17 | Infectious Diseases Prog Note ---
Assessment/Plan Assessment/Plan A) 1) worsening consolidation on chest x-ray, ? new aspiration pna/HCAP, hx KPC /Klebsiella uti, hx pseudomonas pna/providencia pna - sputum culture with gram negative organism so far - f/u chest x-ray - pending 2) proteus/strep/staph aureus/enterococcus sacral wound infection - s/p abx, sacral wound clean and other wounds stable 3) chronic olvera, elevated cr noted 4) trach, no vent 5) sz, dm, htn, anemia, arrhythmia, af, dementia, qp, cva, weakness, dysphagia, g-tube 6) allergies - negative, fh-nc, sh-negative, mar noted, notes and records noted 7) d/w RN P) 1) amikacin and cefepime, discontinue vancomycin 2) check labs, sc, and f/u chest x-ray 3) wound care per protocol 4) continue treatment per primary and consultants 5) orders entered and noted Subjective Constitutional: Denies: fever HEENT: Denies: congestion Respiratory: Denies: shortness of breath Cardiovascular: Denies: chest pain Gastrointestinal/Abdominal: Denies: nausea, vomiting, diarrhea Genitourinary: Reports: other - no olvera Neurologic: Denies: headache Psychiatric: Denies: depression Skin: Denies: rash Hematologic: Denies: bleeding Musculoskeletal: Denies: pain Allergies: Coded Allergies: No Known Allergies (Unverified , 01/02/17) Objective Vital Signs Last 24 Hour Vital Signs Date Time Temp Pulse Resp B/P (MAP) Pulse Ox O2 Delivery O2 Flow Rate FiO2 03/20/17 13:16 T-piece 8.0 30 03/20/17 13:16 99 T-piece 8.0 30 03/20/17 12:00 98.0 89 20 123/57 99 03/20/17 12:00 Trach Collar 8.0 30 03/20/17 08:00 98.1 89 20 105/61 100 03/20/17 08:00 Trach Collar 8.0 30 03/20/17 07:22 T-piece 8.0 30 03/20/17 07:20 94 T-piece 8.0 30 03/20/17 04:00 Trach Collar 8.0 30 03/20/17 01:37 T-piece 8.0 30 03/20/17 01:37 99 T-piece 8.0 30 03/20/17 00:02 Trach Collar 8.0 30 03/19/17 21:10 T-piece 8.0 30 03/19/17 21:08 97 T-piece 8.0 30 03/19/17 20:00 98.2 79 20 115/59 100 03/19/17 20:00 Trach Collar 8.0 30 03/19/17 16:00 98.1 85 18 115/54 100 03/19/17 16:00 100 Trach Collar 8.0 30 Height (Feet): 6 Height (Inches): 0.00 Weight (Pounds): 180 General Appearance: no acute distress HEENT: normocephalic, atraumatic, anicteric, mucous membranes moist, EOMI, pharynx normal, supple, no JVD Respiratory/Chest: crackles/rales, rhonchi - bilaterally Cardiovascular: normal rate, regular rhythm, no gallop/murmur, no JVD Abdomen: normal bowel sounds, soft, non tender, no organomegaly, non distended Genitourinary: other - no olvera Extremities: no cyanosis Skin: no rash, other - wounds covered Neurologic/Psychiatric: brim stiffener II-XII grossly normal, motor weakness, other - generalized weakness, occ opens eyes Lymphatic: no neck adenopathy Musculoskeletal: no effusion Objective 03/18 - chest x-ray - Impression: Suspect developing consolidation of the left lung base. Correlate with clinical findings Microbiology Date/Time Source Procedure Growth Status 03/18/17 20:55 Sputum Gram Stain - Final Resulted 03/18/17 20:55 Sputum Culture - Preliminary Gram Negative Bacillus 1 Resulted 03/04/17 17:00 Stool Clostridium difficile Toxin Assay - Final Complete 03/04/17 12:30 Urine,Clean Catch Urine Culture - Final K.pneumoniae Carbapenem Resist Complete 03/04/17 19:00 Sacral Wound Gram Stain - Final Complete 03/04/17 19:00 Wound Culture - Final Proteus Mirabilis Staphylococcus Aureus - Mrsa Enterococcus Faecalis Complete Microbiology Date/Time Source Procedure Growth Status 03/18/17 20:55 Sputum Gram Stain - Final Resulted 03/18/17 20:55 Sputum Culture - Preliminary Gram Negative Bacillus 1 Resulted Labs Test 03/18/17 05:00 03/19/17 07:55 White Blood Count 8.3 K/UL (4.8-10.8) 6.8 K/UL (4.8-10.8) Red Blood Count 3.45 M/UL (4.70-6.10) 3.67 M/UL (4.70-6.10) Hemoglobin 10.0 G/DL (14.2-18.0) 10.5 G/DL (14.2-18.0) Hematocrit 31.2 % (42.0-52.0) 33.5 % (42.0-52.0) Mean Corpuscular Volume 91 FL (80-99) 91 FL (80-99) Mean Corpuscular Hemoglobin 29.0 PG (27.0-31.0) 28.6 PG (27.0-31.0) Mean Corpuscular Hemoglobin Concent 32.1 G/DL (32.0-36.0) 31.4 G/DL (32.0-36.0) Red Cell Distribution Width 15.8 % (11.6-14.8) 15.3 % (11.6-14.8) Platelet Count 272 K/UL (150-450) 267 K/UL (150-450) Mean Platelet Volume 7.6 FL (6.5-10.1) 7.5 FL (6.5-10.1) Neutrophils (%) (Auto) 52.7 % (45.0-75.0) 57.3 % (45.0-75.0) Lymphocytes (%) (Auto) 28.7 % (20.0-45.0) 26.6 % (20.0-45.0) Monocytes (%) (Auto) 15.7 % (1.0-10.0) 13.7 % (1.0-10.0) Eosinophils (%) (Auto) 1.8 % (0.0-3.0) 1.6 % (0.0-3.0) Basophils (%) (Auto) 1.1 % (0.0-2.0) 0.7 % (0.0-2.0) Sodium Level 136 MMOL/L (136-145) 136 MMOL/L (136-145) Potassium Level 4.8 MMOL/L (3.5-5.1) 3.9 MMOL/L (3.5-5.1) Chloride Level 95 MMOL/L (98-107) 94 MMOL/L (98-107) Carbon Dioxide Level 35 MMOL/L (21-32) 38 MMOL/L (21-32) Anion Gap 6 mmol/L (5-15) 4 mmol/L (5-15) Blood Urea Nitrogen 26 mg/dL (7-18) 27 mg/dL (7-18) Creatinine 1.2 MG/DL (0.55-1.30) 1.3 MG/DL (0.55-1.30) Estimat Glomerular Filtration Rate mL/min (>60) mL/min (>60) Glucose Level 171 MG/DL (74-106) 204 MG/DL (74-106) Calcium Level 9.7 MG/DL (8.5-10.1) 9.8 MG/DL (8.5-10.1) Random Amikacin Level 20.2 MG/L Current Medications Medications (Trade) Dose Ordered Sig/Dorie Route PRN Reason Start Time Stop Time Status Last Admin Dose Admin Acetaminophen (Tylenol) 650 mg Q4H PRN ORAL T>100.5 03/07/17 03:30 04/03/17 15:29 Amikacin Protocol (Amikacin pharmacy to dose) 1 ea DAILY PRN MISC Per rx protocol 03/18/17 18:15 04/17/17 18:14 Amikacin Sulfate 1200 mg/Sodium Chloride 114.8 ml @ 229.6 mls/ hr Q48H IV 03/20/17 20:00 03/27/17 19:59 Cefepime HCl 1 gm/ Dextrose 50 ml @ 100 mls/hr Q12HR IVPB 03/18/17 21:00 03/25/17 20:59 03/20/17 09:29 Dextrose (Dextrose 50%) STAT PRN IV Hypoglycemia 03/07/17 15:30 04/03/17 15:29 Divalproex Sodium (Depakote Sprinkles) 250 mg Q12HR GT 03/07/17 09:00 04/03/17 20:59 03/20/17 09:29 Glycopyrrolate (Robinul) 0.2 mg Q8H PRN IV large secretions 03/17/17 17:00 04/16/17 16:59 03/17/17 20:09 Heparin Sodium (Porcine) (Heparin 5000 units/ml) 5,000 units EVERY 12 HOURS SUBQ 03/07/17 09:00 04/03/17 20:59 03/20/17 09:30 Insulin Aspart (NovoLOG) Q6HR SUBQ 03/07/17 00:00 04/03/17 20:59 03/20/17 12:48 Levetiracetam (Keppra) 500 mg Q12HR GT 03/07/17 09:00 04/03/17 20:59 03/20/17 09:29 Ondansetron HCl (Zofran) 4 mg Q6H PRN IVP Nausea & Vomiting 03/07/17 03:30 04/03/17 15:29 Pantoprazole (Protonix) 40 mg DAILY IV 03/07/17 09:00 04/04/17 08:59 03/20/17 09:29 Polyethylene Glycol (Miralax) 17 gm DAILYPRN PRN GT Constipation 03/07/17 18:15 04/06/17 18:14 03/17/17 06:19 Vancomycin HCl (Vanco rx to dose) 1 ea DAILY PRN MISC Per rx protocol 03/18/17 18:15 04/17/17 18:14 Vancomycin HCl/ Dextrose 250 ml @ 125 mls/hr Q24H IVPB 03/18/17 22:00 03/23/17 21:59 03/19/17 21:59 JENNIFER BEVERLY Mar 20, 2017 14:17
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
[2017-03-20] MEDS ORDERED: Sterile Water Irrig 1000ml IRRIG ONE (15:24)
[2017-03-20] MEDS ORDERED: Tubing IV Secondary IV ONE ×2 (15:24→15:32)
[2017-03-20 16:00] VITALS: BP 111/65
[2017-03-20 19:32] VITALS: BP 126/60
[2017-03-20] MEDS ORDERED: Amikacin 1,200 MG in NS 110 ML IV SCH (20:00)
[2017-03-20 23:08] VITALS: BP 138/66
[2017-03-21] MEDS: NovoLOG Insulin Flexpen SUBQ SCH ×5 (00:38→23:59)
[2017-03-21 04:00] VITALS: BP 126/57
[2017-03-21 07:50] LABS: BASOPHILS % (AUTO) 0.5 % (0.0-2.0); LYMPHOCYTES % (AUTO) 14.7 % (20.0-45.0); MEAN CORPUSCULAR HEMOGLOBIN 29.6 PG (27.0-31.0); MEAN CORPUSCULAR HGB CONC 32.4 G/DL (32.0-36.0); MEAN CORPUSCULAR VOLUME 92 FL (80-99); MEAN PLATELET VOLUME 7.4 FL (6.5-10.1); MONOCYTES % (AUTO) 12.4 % (1.0-10.0); NEUTROPHILS % (AUTO) 71.3 % (45.0-75.0); PLATELET COUNT 232 K/UL (150-450); RED BLOOD COUNT 3.35 M/UL (4.70-6.10); RED CELL DISTRIBUTION WIDTH 15.2 % (11.6-14.8); WHITE BLOOD COUNT 9.1 K/UL (4.8-10.8)
[2017-03-21 08:00] VITALS: BP 133/63
[2017-03-21 08:13] LABS: ANION GAP 4 mmol/L (5-15); CALCIUM 9.6 MG/DL (8.5-10.1); CARBON DIOXIDE 36 MMOL/L (21-32); CHLORIDE 94 MMOL/L (98-107); CREATININE 1.1 MG/DL (0.55-1.30); POTASSIUM 3.8 MMOL/L (3.5-5.1); SODIUM 134 MMOL/L (136-145)
[2017-03-21] MEDS: Depakote 125mg Sprinkles GT SCH ×2 (09:06→20:08)
[2017-03-21] MEDS: levETIRAcetam 500mg/5ml Liquid GT SCH ×2 (09:06→20:07)
[2017-03-21] MEDS: Pantoprazole Inj IV SCH (09:06)
[2017-03-21] MEDS: Heparin 5000 units/ml inj SUBQ SCH ×2 (09:07→20:09)
--- NOTE | 2017-03-21 10:39 | Diagnostic Imaging Report ---
Indication: Dyspnea Comparison: 03/18/17 A single view chest radiograph was obtained. Findings: There is basilar atelectasis. Heart is enlarged. Tracheostomy noted. Curvilinear lucency at the left lung base stable over multiple exams on prior studies. Atelectasis is stable. Impression: Stable findings
[2017-03-21 12:00] VITALS: BP 114/57
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
[2017-03-21] MEDS ORDERED: Albuterol/Ipratropium 3ml neb HHN PRN (13:15)
--- NOTE | 2017-03-21 13:17 | General Progress Note ---
Assessment/Plan Problem List: (1) UTI (urinary tract infection) Assessment & Plan: 2/2 MDR Klebsiella ICD Codes: N39.0 - Urinary tract infection, site not specified SNOMED: 79378316 Qualifiers: Qualified Codes: T83.511A - Infection and inflammatory reaction due to indwelling urethral catheter, initial encounter; N39.0 - Urinary tract infection , site not specified (2) Aspiration pneumonia ICD Codes: J69.0 - Pneumonitis due to inhalation of food and vomit SNOMED: 121097176 (3) Acute toxic metabolic encephalopathy (4) Chronic respiratory failure Assessment & Plan: with hypoxia s/p tracheostomy ICD Codes: J96.10 - Chronic respiratory failure, unspecified whether with hypoxia or hypercapnia SNOMED: 53175965 (5) Paroxysmal A-fib ICD Codes: I48.0 - Paroxysmal atrial fibrillation SNOMED: 808345214 (6) Advanced dementia ICD Codes: F03.90 - Unspecified dementia without behavioral disturbance SNOMED: 29953046 (7) Functional quadriplegia ICD Codes: R53.2 - Functional quadriplegia SNOMED: 621526215320194 (8) Tracheostomy in place ICD Codes: Z93.0 - Tracheostomy status SNOMED: 831963097 (9) S/P percutaneous endoscopic gastrostomy (PEG) tube placement ICD Codes: Z93.1 - Gastrostomy status SNOMED: 819171115 (10) Anemia ICD Codes: D64.9 - Anemia, unspecified SNOMED: 349190453 Qualifiers: Qualified Codes: D64.9 - Anemia, unspecified (11) Gastritis ICD Codes: K29.70 - Gastritis, unspecified, without bleeding SNOMED: 9810725 (12) Seizure disorder ICD Codes: G40.909 - Epilepsy, unspecified, not intractable, without status epilepticus SNOMED: 521346859 (13) HTN (hypertension) ICD Codes: I10 - Essential (primary) hypertension SNOMED: 48542558 (14) Diabetes mellitus ICD Codes: E11.9 - Type 2 diabetes mellitus without complications SNOMED: 63980170 Qualifiers: Qualified Codes: E11.8 - Type 2 diabetes mellitus with unspecified complications (15) Pressure ulcer Assessment & Plan: #1 Right lateral 1st metatarsal head pressure ulcer with yellow scab adhered to wound bed #2 Right Heel unstageable pressure ulcer #3 Sacral unstageable pressure ulcer #4 Left heel DTI pressure ulcer ICD Codes: L89.90 - Pressure ulcer of unspecified site, unspecified stage SNOMED: 633353904 Status: stable Assessment/Plan Antibiotics resumed per ID given CXR w/ LLL consolidation, concern for aspiration PNA: cefepime, amikacin (03/18-), s/p vanco (03/18-03/20) Sputum cx shows Pseudmonas and Proteus s/p Vancomycin, polymyxin, cefepime and flagyl (course ended 03/14/17 per ID) s/p levaquin, cefepime and amikacin in ED on 03/04 ID and pulm consulted, appreciate rec's s/p olvera exchange on 03/05/17 F/u cultures--urine cx w/ >100K Klebsiella w/ carbapenem resistance Cont O2 via trach PRN Duonebs PRN Trend CBC, BMP Cont SNF meds Supportive care Wound care CM consulted for d/c back to SNF, awaiting placement. Pt has run out of Medicare SNF days and he has no secondary insurance. He has not qualified for [facility] in past. Awaiting discussion w/ son. Consider home w/ hospice if family agrees. Family stating they are not able to care for pt at home. Son is appealing d/c per CM. Son now consider home w/ hospice and attempting to hire caregivers. Son states will bring in caregivers for training SW filed APS and for public guardian referral on 03/18/17 DVT Prophylaxis: SCD, HSQ Code Status: Full Hospital Classification Declaration: Based on this initial evaluation, and depending on the patient's clinical course, I anticipate that this patient will require hospitalization for 1-2 days for UTI, AMS and close respiratory/ hemodynamic monitoring. Disposition: Once the patient is stable to leave the hospital, I anticipate the patient will likely be discharged to the following environment: back to SNF vs home w/ hospice or health health + caregiver Discussed with patient/family, nursing staff, SW/CM, pulm, ID regarding clinical status, treatment course, and disposition planning. D/w ID re plan for abx Time of note may not reflect time of encounter. Subjective Date patient seen: Mar 21, 2017 Time patient seen: 13:17 ROS Limited/Unobtainable: Yes Allergies: Coded Allergies: No Known Allergies (Unverified , 01/02/17) Subjective No acute o/n events HDS Urine cx shows >100K Klebisella w/ carbapenem resistance Olvera exchanged on 03/06/17 Restarted on abx per ID given CXR w/ worsening LLL consolidation. Secretions decreasing. Sputum cx shows Pseudomonas and Proteus Awaiting placement. Spoke to pt's who deferred to son Manuelito. Left msg for Manuelito, awaiting call back. Son appealing discharge per CM. SW has filed APS and public guardian referral Son now considering home w/ hospice and attempting to hire caregivers. Per RN, son called and stated he would bring caregivers in for training Pt bedbound and nonverbal at baseline Unable to obtain ROS 2/2 dementia and pt nonverbal Objective Last 24 Hour Vital Signs Date Time Temp Pulse Resp B/P (MAP) Pulse Ox O2 Delivery O2 Flow Rate FiO2 03/21/17 12:50 100 T-piece 8.0 30 03/21/17 12:50 T-piece 8.0 30 03/21/17 08:00 97.3 65 20 133/63 100 03/21/17 07:24 T-piece 8.0 30 03/21/17 07:24 99 T-piece 8.0 30 03/21/17 04:09 Trach Collar 8.0 30 03/21/17 04:00 97.3 89 20 126/57 100 Room Air 03/21/17 01:06 98 T-piece 8.0 30 03/21/17 01:05 T-piece 8.0 30 03/20/17 23:08 97.3 84 20 138/66 97 Trach Collar 03/20/17 20:30 97 T-piece 8.0 30 03/20/17 20:00 T-piece 8.0 30 03/20/17 20:00 Trach Collar 8.0 30 03/20/17 19:32 97.3 83 20 126/60 99 Trach Collar 03/20/17 16:00 97.3 91 20 111/65 100 Intake and Output 03/21/17 03/22/17 19:00 07:00 # Bowel Movements 1 Laboratory Tests 03/21/17 06:10: White Blood Count 9.1, Red Blood Count 3.35L, Hemoglobin 9.9L, Hematocrit 30.7L , Mean Corpuscular Volume 92, Mean Corpuscular Hemoglobin 29.6, Mean Corpuscular Hemoglobin Concent 32.4, Red Cell Distribution Width 15.2H, Platelet Count 232, Mean Platelet Volume 7.4, Neutrophils (%) (Auto) 71.3, Lymphocytes (%) (Auto) 14.7L, Monocytes (%) (Auto) 12.4H, Eosinophils (%) (Auto ) 1.0, Basophils (%) (Auto) 0.5, Sodium Level 134L, Potassium Level 3.8, Chloride Level 94L, Carbon Dioxide Level 36H, Anion Gap 4L, Blood Urea Nitrogen 26H, Creatinine 1.1, Estimat Glomerular Filtration Rate , Glucose Level 211H, Calcium Level 9.6 Height (Feet): 6 Height (Inches): 0.00 Weight (Pounds): 180 Objective General: eyes closed, nonverbal, unresponsive to voice and painful stimuli Head: normocephalic, without obvious abnormality, atraumatic Eyes: conjunctivae/corneas clear. PERRL, EOM's intact Throat: lips, mucosa, and tongue normal. MMM Neck: supple, symmetrical, trachea midline, and no JVD Lungs: +rhonchi b/l, decreased breath sounds on L side Heart: regular rate and rhythm, S1, S2 normal, no murmur, click, rub or gallop Abdomen: soft, non-tender, non-distended, bowel sounds normal; no masses or organomegaly Extremities: extremities normal, atraumatic, no cyanosis or edema Pulses: 2+ and symmetric Skin: skin color, texture, turgor normal; no rashes or lesions Neurologic: unable to assess Travis Hinojosa M.D. Mar 21, 2017 13:17
[2017-03-21] MEDS ORDERED: Tubing IV Secondary IV ONE (14:50)
[2017-03-21 16:00] VITALS: BP 124/68
[2017-03-21 20:00] VITALS: BP 138/77
[2017-03-22] VITALS: BP 118/80
[2017-03-22 04:00] VITALS: BP 114/67
[2017-03-22] MEDS: NovoLOG Insulin Flexpen SUBQ SCH ×4 (05:47→23:51)
[2017-03-22 08:00] VITALS: BP 117/58
[2017-03-22 08:18] LABS: BASOPHILS % (AUTO) 0.8 % (0.0-2.0); EOSINOPHILS % (AUTO) 0.4 % (0.0-3.0); LYMPHOCYTES % (AUTO) 22.1 % (20.0-45.0); MEAN CORPUSCULAR HEMOGLOBIN 29.7 PG (27.0-31.0); MEAN CORPUSCULAR HGB CONC 32.7 G/DL (32.0-36.0); MEAN CORPUSCULAR VOLUME 91 FL (80-99); MEAN PLATELET VOLUME 7.7 FL (6.5-10.1); MONOCYTES % (AUTO) 10.6 % (1.0-10.0); NEUTROPHILS % (AUTO) 66.1 % (45.0-75.0); PLATELET COUNT 241 K/UL (150-450); RED BLOOD COUNT 3.03 M/UL (4.70-6.10); RED CELL DISTRIBUTION WIDTH 15.3 % (11.6-14.8); WHITE BLOOD COUNT 10.7 K/UL (4.8-10.8)
[2017-03-22 08:29] LABS: ANION GAP 5 mmol/L (5-15); CALCIUM 9.5 MG/DL (8.5-10.1); CARBON DIOXIDE 36 MMOL/L (21-32); CHLORIDE 94 MMOL/L (98-107); CREATININE 1.4 MG/DL (0.55-1.30); POTASSIUM 4.2 MMOL/L (3.5-5.1); SODIUM 135 MMOL/L (136-145)
[2017-03-22] MEDS: Pantoprazole Inj IV SCH (09:43)
[2017-03-22] MEDS: Depakote 125mg Sprinkles GT SCH ×2 (09:43→21:15)
[2017-03-22] MEDS: levETIRAcetam 500mg/5ml Liquid GT SCH ×2 (09:43→21:16)
[2017-03-22] MEDS: Heparin 5000 units/ml inj SUBQ SCH ×2 (09:49→21:17)
--- NOTE | 2017-03-22 10:37 | Diagnostic Imaging Report ---
Indication: SOB Technique: One view of the chest Comparison: 03/21/2017 Findings: Tracheostomy, right infrahilar atelectasis, left basilar semi-lunar density, left lateral basilar atelectasis this, all unchanged. No new infiltrates or effusions. Normal heart size Impression: Unchanged, over one day, findings as above.
[2017-03-22 12:00] VITALS: BP 129/67
--- NOTE | 2017-03-22 14:23 | Infectious Diseases Prog Note ---
Assessment/Plan Assessment/Plan A) 1) proteus/pseudomonas pna, worsening consolidation on chest x-ray, hx KPC/ Klebsiella uti, hx pseudomonas pseudomonas/providencia pna - chest x-ray - no change - increased cr noted 2) proteus/strep/staph aureus/enterococcus sacral wound infection - s/p abx, sacral wound clean and other wounds stable 3) chronic olvera, elevated cr noted 4) trach, no vent 5) sz, dm, htn, anemia, arrhythmia, af, dementia, qp, cva, weakness, dysphagia, g-tube 6) allergies - negative, fh-nc, sh-negative, mar noted, notes and records noted 7) d/w RN P) 1) change abx to meropenem x 5 days more to complete abx course 2) check labs, sc, and f/u chest x-ray 3) wound care per protocol 4) continue treatment per primary and consultants 5) orders entered and noted 6) d/w Dr. Robles 7) avoid nephrotoxic abx Subjective Constitutional: Denies: fever HEENT: Denies: congestion Respiratory: Denies: shortness of breath Cardiovascular: Denies: chest pain Gastrointestinal/Abdominal: Denies: nausea, vomiting, diarrhea Genitourinary: Denies: dysuria Neurologic: Denies: headache Psychiatric: Denies: depression Skin: Denies: rash Hematologic: Denies: bleeding Musculoskeletal: Denies: pain Allergies: Coded Allergies: No Known Allergies (Unverified , 01/02/17) Objective Vital Signs Last 24 Hour Vital Signs Date Time Temp Pulse Resp B/P (MAP) Pulse Ox O2 Delivery O2 Flow Rate FiO2 03/22/17 12:42 98 T-piece 6.0 28 03/22/17 12:42 T-piece 6.0 28 03/22/17 12:00 97.2 85 19 129/67 96 Room Air 03/22/17 08:00 98.6 91 17 117/58 97 Room Air 03/22/17 07:30 95 20 T-piece 8.0 30 03/22/17 07:29 T-piece 8.0 30 03/22/17 07:29 98 T-piece 8.0 30 03/22/17 05:37 98.8 96 98 Trach Collar 8.0 30 03/22/17 05:20 98.8 03/22/17 04:00 99.0 109 20 114/67 97 Room Air 03/22/17 01:20 T-piece 8.0 30 03/22/17 01:19 99 T-piece 8.0 30 03/22/17 01:19 99 T-piece 8.0 30 03/22/17 00:00 Trach Collar 8.0 30 03/22/17 00:00 99.5 127 22 118/80 99 Room Air 03/21/17 21:36 T-piece 8.0 30 03/21/17 21:36 99 T-piece 8.0 30 03/21/17 20:00 97.7 90 20 138/77 100 Room Air 03/21/17 20:00 Trach Collar 8.0 30 03/21/17 16:00 98.1 94 20 124/68 100 03/21/17 16:00 Trach Collar 8.0 30 Height (Feet): 6 Height (Inches): 0.00 Weight (Pounds): 180 General Appearance: no acute distress HEENT: normocephalic, atraumatic, anicteric, mucous membranes moist, EOMI, pharynx normal, supple, no JVD, status post trach Respiratory/Chest: no accessory muscle use, decreased breath sounds, crackles/ rales, rhonchi - bilaterally Cardiovascular: normal rate, regular rhythm, no gallop/murmur Abdomen: normal bowel sounds, soft, non tender, no organomegaly, non distended Genitourinary: other - + olvera - urine cloudy Extremities: no cyanosis Skin: no rash 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 Correlate with clinical findings 03/22 - chest x-ray: Procedure: XRAY Chest 1v Indication: SOB Technique: One view of the chest Comparison: 03/21/2017 Findings: Tracheostomy, right infrahilar atelectasis, left basilar semi-lunar density, left lateral basilar atelectasis this, all unchanged. No new infiltrates or effusions. Normal heart size Impression: Unchanged, over one day, findings as above. Intake and Output 03/22/17 03/23/17 19:00 07:00 Intake Total 50 ml Balance 50 ml IV Total 50 ml Microbiology Date/Time Source Procedure Growth Status 03/18/17 20:55 Sputum Gram Stain - Final Resulted 03/18/17 20:55 Sputum Culture - Preliminary Pseudomonas Aeruginosa Proteus Mirabilis Resulted 03/04/17 17:00 Stool Clostridium difficile Toxin Assay - Final Complete 03/04/17 12:30 Urine,Clean Catch Urine Culture - Final K.pneumoniae Carbapenem Resist Complete 03/04/17 19:00 Sacral Wound Gram Stain - Final Complete 03/04/17 19:00 Wound Culture - Final Proteus Mirabilis Staphylococcus Aureus - Mrsa Enterococcus Faecalis Complete Laboratory Tests Test 03/21/17 21:05 03/22/17 06:42 Vancomycin Level Trough 10.8 ug/mL (5.0-12.0) White Blood Count 10.7 K/UL (4.8-10.8) Red Blood Count 3.03 M/UL (4.70-6.10) L Hemoglobin 9.0 G/DL (14.2-18.0) L Hematocrit 27.4 % (42.0-52.0) L Mean Corpuscular Volume 91 FL (80-99) Mean Corpuscular Hemoglobin 29.7 PG (27.0-31.0) Mean Corpuscular Hemoglobin Concent 32.7 G/DL (32.0-36.0) Red Cell Distribution Width 15.3 % (11.6-14.8) H Platelet Count 241 K/UL (150-450) Mean Platelet Volume 7.7 FL (6.5-10.1) Neutrophils (%) (Auto) 66.1 % (45.0-75.0) Lymphocytes (%) (Auto) 22.1 % (20.0-45.0) Monocytes (%) (Auto) 10.6 % (1.0-10.0) H Eosinophils (%) (Auto) 0.4 % (0.0-3.0) Basophils (%) (Auto) 0.8 % (0.0-2.0) Sodium Level 135 MMOL/L (136-145) L Potassium Level 4.2 MMOL/L (3.5-5.1) Chloride Level 94 MMOL/L (98-107) L Carbon Dioxide Level 36 MMOL/L (21-32) H Anion Gap 5 mmol/L (5-15) Blood Urea Nitrogen 34 mg/dL (7-18) H Creatinine 1.4 MG/DL (0.55-1.30) H Estimat Glomerular Filtration Rate mL/min (>60) Glucose Level 185 MG/DL (74-106) H Calcium Level 9.5 MG/DL (8.5-10.1) Current Medications Medications (Trade) Dose Ordered Sig/Dorie Route PRN Reason Start Time Stop Time Status Last Admin Dose Admin Acetaminophen (Tylenol) 650 mg Q4H PRN ORAL T>100.5 03/07/17 03:30 04/03/17 15:29 03/22/17 04:21 Albuterol/ Ipratropium (Albuterol/ Ipratropium) 3 ml Q4H PRN HHN Shortness of Breath 03/21/17 13:15 03/26/17 13:14 Amikacin Protocol (Amikacin pharmacy to dose) 1 ea DAILY PRN MISC Per rx protocol 03/18/17 18:15 04/17/17 18:14 Amikacin Sulfate 1200 mg/Sodium Chloride 114.8 ml @ 229.6 mls/ hr Q48H IV 03/20/17 20:00 03/27/17 19:59 03/20/17 21:03 Cefepime HCl 1 gm/ Dextrose 50 ml @ 100 mls/hr Q12HR IVPB 03/18/17 21:00 03/25/17 20:59 03/22/17 09:45 Dextrose (Dextrose 50%) STAT PRN IV Hypoglycemia 03/07/17 15:30 04/03/17 15:29 Divalproex Sodium (Depakote Sprinkles) 250 mg Q12HR GT 03/07/17 09:00 04/03/17 20:59 03/22/17 09:43 Glycopyrrolate (Robinul) 0.2 mg Q8H PRN IV large secretions 03/17/17 17:00 04/16/17 16:59 03/17/17 20:09 Heparin Sodium (Porcine) (Heparin 5000 units/ml) 5,000 units EVERY 12 HOURS SUBQ 03/07/17 09:00 04/03/17 20:59 03/22/17 09:49 Insulin Aspart (NovoLOG) Q6HR SUBQ 03/07/17 00:00 04/03/17 20:59 03/22/17 12:40 Levetiracetam (Keppra) 500 mg Q12HR GT 03/07/17 09:00 04/03/17 20:59 03/22/17 09:43 Ondansetron HCl (Zofran) 4 mg Q6H PRN IVP Nausea & Vomiting 03/07/17 03:30 04/03/17 15:29 Pantoprazole (Protonix) 40 mg DAILY IV 03/07/17 09:00 04/04/17 08:59 03/22/17 09:43 Polyethylene Glycol (Miralax) 17 gm DAILYPRN PRN GT Constipation 03/07/17 18:15 04/06/17 18:14 03/17/17 06:19 JENNIFER BEVERLY Mar 22, 2017 14:23
[2017-03-22 16:00] VITALS: BP 135/68
--- NOTE | 2017-03-22 16:34 | Pulmonology Progress Note ---
Assessment/Plan Problems: (1) Sepsis (2) Nosocomial pneumonia (3) Anemia (4) Sacral decubitus ulcer (5) Paroxysmal a-fib (6) G tube feedings (7) Advanced dementia (8) Tracheostomy in place (9) Functional quadriplegia Assessment/Plan cxr reviewed, no changes somnolent, comfortable frequent suctioning tolerating feeding wound care. all reviewed Subjective ROS Limited/Unobtainable: No Constitutional: Reports: no symptoms HEENT: Repors: no symptoms Respiratory: Reports: no symptoms Allergies: Coded Allergies: No Known Allergies (Unverified , 01/02/17) Objective Last 24 Hour Vital Signs Date Time Temp Pulse Resp B/P (MAP) Pulse Ox O2 Delivery O2 Flow Rate FiO2 03/22/17 12:42 98 T-piece 6.0 28 03/22/17 12:42 T-piece 6.0 28 03/22/17 12:00 97.2 85 19 129/67 96 Room Air 03/22/17 08:00 98.6 91 17 117/58 97 Room Air 03/22/17 07:30 95 20 T-piece 8.0 30 03/22/17 07:29 T-piece 8.0 30 03/22/17 07:29 98 T-piece 8.0 30 03/22/17 05:37 98.8 96 98 Trach Collar 8.0 30 03/22/17 05:20 98.8 03/22/17 04:00 99.0 109 20 114/67 97 Room Air 03/22/17 01:20 T-piece 8.0 30 03/22/17 01:19 99 T-piece 8.0 30 03/22/17 01:19 99 T-piece 8.0 30 03/22/17 00:00 Trach Collar 8.0 30 03/22/17 00:00 99.5 127 22 118/80 99 Room Air 03/21/17 21:36 T-piece 8.0 30 03/21/17 21:36 99 T-piece 8.0 30 03/21/17 20:00 97.7 90 20 138/77 100 Room Air 03/21/17 20:00 Trach Collar 8.0 30 Intake and Output 03/22/17 03/23/17 19:00 07:00 Intake Total 50 ml Balance 50 ml IV Total 50 ml Objective General Appearance: WD/WN HEENT: normocephalic, anicteric, trach intact Cardiovascular: normal peripheral pulses, normal rate Abdomen: normal bowel sounds, no organomegaly Genitourinary: normal external genitalia Extremities: no clubbing Skin: no lesions Lymphatic: no neck adenopathy Laboratory Tests 03/21/17 21:05: Vancomycin Level Trough 10.8 03/22/17 06:42: White Blood Count 10.7, Red Blood Count 3.03L, Hemoglobin 9.0L, Hematocrit 27.4L , Mean Corpuscular Volume 91, Mean Corpuscular Hemoglobin 29.7, Mean Corpuscular Hemoglobin Concent 32.7, Red Cell Distribution Width 15.3H, Platelet Count 241, Mean Platelet Volume 7.7, Neutrophils (%) (Auto) 66.1, Lymphocytes (%) (Auto) 22.1, Monocytes (%) (Auto) 10.6H, Eosinophils (%) (Auto) 0.4, Basophils (%) (Auto) 0.8, Sodium Level 135L, Potassium Level 4.2, Chloride Level 94L, Carbon Dioxide Level 36H, Anion Gap 5, Blood Urea Nitrogen 34H, Creatinine 1.4H, Estimat Glomerular Filtration Rate , Glucose Level 185H, Calcium Level 9.5 Current Medications Medications (Trade) Dose Ordered Sig/Dorie Route PRN Reason Start Time Stop Time Status Last Admin Dose Admin Acetaminophen (Tylenol) 650 mg Q4H PRN ORAL T>100.5 03/07/17 03:30 04/03/17 15:29 03/22/17 04:21 Albuterol/ Ipratropium (Albuterol/ Ipratropium) 3 ml Q4H PRN HHN Shortness of Breath 03/21/17 13:15 03/26/17 13:14 Dextrose (Dextrose 50%) STAT PRN IV Hypoglycemia 03/07/17 15:30 04/03/17 15:29 Divalproex Sodium (Depakote Sprinkles) 250 mg Q12HR GT 03/07/17 09:00 04/03/17 20:59 03/22/17 09:43 Glycopyrrolate (Robinul) 0.2 mg Q8H PRN IV large secretions 03/17/17 17:00 04/16/17 16:59 11/29/17 20:09 Heparin Sodium (Porcine) (Heparin 5000 units/ml) 5,000 units EVERY 12 HOURS SUBQ 03/07/17 09:00 04/03/17 20:59 03/22/17 09:49 Insulin Aspart (NovoLOG) Q6HR SUBQ 03/07/17 00:00 04/03/17 20:59 03/22/17 12:40 Levetiracetam (Keppra) 500 mg Q12HR GT 03/07/17 09:00 04/03/17 20:59 03/22/17 09:43 Meropenem 1 gm/ Sodium Chloride 55 ml @ 110 mls/hr Q12HR IVPB 03/22/17 21:00 03/27/17 20:59 Ondansetron HCl (Zofran) 4 mg Q6H PRN IVP Nausea & Vomiting 03/07/17 03:30 04/03/17 15:29 Pantoprazole (Protonix) 40 mg DAILY IV 03/07/17 09:00 04/04/17 08:59 03/22/17 09:43 Polyethylene Glycol (Miralax) 17 gm DAILYPRN PRN GT Constipation 03/07/17 18:15 04/06/17 18:14 03/17/17 06:19 BAM SCHAEFFER Mar 22, 2017 16:34
[2017-03-22 20:06] VITALS: BP 109/58
[2017-03-22] MEDS: Meropenem 1 GM in NS 55 ML IVPB SCH (21:16)
--- NOTE | 2017-03-22 22:48 | General Progress Note ---
Assessment/Plan Status: stable Assessment/Plan encephalopathy -no med changes Subjective Allergies: Coded Allergies: No Known Allergies (Unverified , 01/02/17) Subjective the pt is pw waxing and waning of consciousness. calm. non verbal. not responsive Objective Last 24 Hour Vital Signs Date Time Temp Pulse Resp B/P (MAP) Pulse Ox O2 Delivery O2 Flow Rate FiO2 03/22/17 20:23 Trach Collar 5.0 30 03/22/17 20:16 T-piece 6.0 28 03/22/17 20:16 88 20 T-piece 6.0 28 03/22/17 20:16 98 T-piece 6.0 28 03/22/17 20:06 97.7 77 18 109/58 100 03/22/17 16:00 97.7 84 20 135/68 99 Trach Collar 6.0 03/22/17 12:42 98 T-piece 6.0 28 03/22/17 12:42 T-piece 6.0 28 03/22/17 12:00 97.2 85 19 129/67 96 Room Air 03/22/17 08:00 98.6 91 17 117/58 97 Room Air 03/22/17 07:30 95 20 T-piece 8.0 30 03/22/17 07:29 T-piece 8.0 30 03/22/17 07:29 98 T-piece 8.0 30 03/22/17 05:37 98.8 96 98 Trach Collar 8.0 30 03/22/17 05:20 98.8 03/22/17 04:00 99.0 109 20 114/67 97 Room Air 03/22/17 01:20 T-piece 8.0 30 03/22/17 01:19 99 T-piece 8.0 30 03/22/17 01:19 99 T-piece 8.0 30 03/22/17 00:00 Trach Collar 8.0 30 03/22/17 00:00 99.5 127 22 118/80 99 Room Air Intake and Output 03/22/17 03/23/17 19:00 07:00 Intake Total 600 ml Balance 600 ml IV Total 50 ml Tube Feeding 550 ml # Voids 3 # Bowel Movements 1 Laboratory Tests 03/22/17 06:42: White Blood Count 10.7, Red Blood Count 3.03L, Hemoglobin 9.0L, Hematocrit 27.4L , Mean Corpuscular Volume 91, Mean Corpuscular Hemoglobin 29.7, Mean Corpuscular Hemoglobin Concent 32.7, Red Cell Distribution Width 15.3H, Platelet Count 241, Mean Platelet Volume 7.7, Neutrophils (%) (Auto) 66.1, Lymphocytes (%) (Auto) 22.1, Monocytes (%) (Auto) 10.6H, Eosinophils (%) (Auto) 0.4, Basophils (%) (Auto) 0.8, Sodium Level 135L, Potassium Level 4.2, Chloride Level 94L, Carbon Dioxide Level 36H, Anion Gap 5, Blood Urea Nitrogen 34H, Creatinine 1.4H, Estimat Glomerular Filtration Rate , Glucose Level 185H, Calcium Level 9.5 Height (Feet): 6 Height (Inches): 0.00 Weight (Pounds): 180 Fortunato Aldrich M.D. Mar 22, 2017 22:48
[2017-03-23 00:47] VITALS: BP 105/61
[2017-03-23 04:00] VITALS: BP 129/65
[2017-03-23] MEDS: NovoLOG Insulin Flexpen SUBQ SCH ×4 (06:00→23:33)
[2017-03-23 07:54] VITALS: BP 109/61
--- NOTE | 2017-03-23 08:14 | General Progress Note ---
Assessment/Plan Problem List: (1) UTI (urinary tract infection) Assessment & Plan: 2/2 MDR Klebsiella ICD Codes: N39.0 - Urinary tract infection, site not specified SNOMED: 86257480 Qualifiers: Qualified Codes: T83.511A - Infection and inflammatory reaction due to indwelling urethral catheter, initial encounter; N39.0 - Urinary tract infection , site not specified (2) Aspiration pneumonia ICD Codes: J69.0 - Pneumonitis due to inhalation of food and vomit SNOMED: 399675046 (3) Acute toxic metabolic encephalopathy (4) Chronic respiratory failure Assessment & Plan: with hypoxia s/p tracheostomy ICD Codes: J96.10 - Chronic respiratory failure, unspecified whether with hypoxia or hypercapnia SNOMED: 59955302 (5) Paroxysmal A-fib ICD Codes: I48.0 - Paroxysmal atrial fibrillation SNOMED: 550796757 (6) Advanced dementia ICD Codes: F03.90 - Unspecified dementia without behavioral disturbance SNOMED: 46078123 (7) Functional quadriplegia ICD Codes: R53.2 - Functional quadriplegia SNOMED: 054827657029997 (8) Tracheostomy in place ICD Codes: Z93.0 - Tracheostomy status SNOMED: 957948377 (9) S/P percutaneous endoscopic gastrostomy (PEG) tube placement ICD Codes: Z93.1 - Gastrostomy status SNOMED: 022080142 (10) Anemia ICD Codes: D64.9 - Anemia, unspecified SNOMED: 270920902 Qualifiers: Qualified Codes: D64.9 - Anemia, unspecified (11) Gastritis ICD Codes: K29.70 - Gastritis, unspecified, without bleeding SNOMED: 3588708 (12) Seizure disorder ICD Codes: G40.909 - Epilepsy, unspecified, not intractable, without status epilepticus SNOMED: 385961294 (13) HTN (hypertension) ICD Codes: I10 - Essential (primary) hypertension SNOMED: 22295880 (14) Diabetes mellitus ICD Codes: E11.9 - Type 2 diabetes mellitus without complications SNOMED: 04956643 Qualifiers: Qualified Codes: E11.8 - Type 2 diabetes mellitus with unspecified complications (15) Pressure ulcer Assessment & Plan: #1 Right lateral 1st metatarsal head pressure ulcer with yellow scab adhered to wound bed #2 Right Heel unstageable pressure ulcer #3 Sacral unstageable pressure ulcer #4 Left heel DTI pressure ulcer ICD Codes: L89.90 - Pressure ulcer of unspecified site, unspecified stage SNOMED: 138367637 Status: stable Assessment/Plan Antibiotics resumed per ID given CXR w/ LLL consolidation, concern for aspiration PNA: cefepime, amikacin (03/18-), s/p vanco (03/18-03/20) Sputum cx shows Pseudomonas and Proteus s/p Vancomycin, polymyxin, cefepime and flagyl (course ended 03/14/17 per ID) s/p levaquin, cefepime and amikacin in ED on 03/04 ID and pulm consulted, appreciate rec's s/p olvera exchange on 03/05/17 F/u cultures--urine cx w/ >100K Klebsiella w/ carbapenem resistance Cont O2 via trach PRN Duonebs PRN Trend CBC, BMP Cont SNF meds Supportive care Wound care CM consulted for d/c back to SNF, awaiting placement. Pt has run out of Medicare SNF days and he has no secondary insurance. He has not qualified for [facility] in past. Awaiting discussion w/ son. Consider home w/ hospice if family agrees. Family stating they are not able to care for pt at home. Son is appealing d/c per CM. Son now consider home w/ hospice and attempting to hire caregivers. Son states will bring in caregivers for training SW filed APS and for public guardian referral on 03/18/17 DVT Prophylaxis: SCD, HSQ Code Status: Full Hospital Classification Declaration: Based on this initial evaluation, and depending on the patient's clinical course, I anticipate that this patient will require hospitalization for 1-2 days for UTI, AMS and close respiratory/ hemodynamic monitoring. Disposition: Once the patient is stable to leave the hospital, I anticipate the patient will likely be discharged to the following environment: back to SNF vs home w/ hospice or health health + caregiver Discussed with patient/family, nursing staff, SW/CM, pulm, ID regarding clinical status, treatment course, and disposition planning. D/w ID re plan for abx Time of note may not reflect time of encounter. Subjective Date patient seen: Mar 22, 2017 Time patient seen: 15:00 ROS Limited/Unobtainable: Yes Allergies: Coded Allergies: No Known Allergies (Unverified , 01/02/17) Subjective No acute o/n events HDS Urine cx shows >100K Klebisella w/ carbapenem resistance Olvera exchanged on 03/06/17 Restarted on abx per ID given CXR w/ worsening LLL consolidation. Secretions decreasing. Sputum cx shows Pseudomonas and Proteus Awaiting placement. Spoke to pt's who deferred to son Manuelito. Left msg for [place], awaiting call back. Son appealing discharge per CM. SW has filed APS and public guardian referral Son now considering home w/ hospice and attempting to hire caregivers. Per RN, son called and stated he would bring caregivers in for training Pt bedbound and nonverbal at baseline Unable to obtain ROS 2/2 dementia and pt nonverbal Objective Last 24 Hour Vital Signs Date Time Temp Pulse Resp B/P (MAP) Pulse Ox O2 Delivery O2 Flow Rate FiO2 03/23/17 07:54 97.5 92 22 109/61 100 03/23/17 06:55 96 18 T-piece 6.0 03/23/17 06:55 T-piece 6.0 03/23/17 06:55 100 T-piece 6.0 03/23/17 04:00 Trach Collar 5.0 30 03/23/17 04:00 97.6 94 18 129/65 100 03/23/17 01:20 T-piece 6.0 28 03/23/17 01:20 98 T-piece 6.0 28 03/23/17 00:47 97.4 83 17 105/61 100 03/22/17 20:23 Trach Collar 5.0 30 03/22/17 20:16 T-piece 6.0 03/22/17 20:16 88 20 T-piece 6.0 03/22/17 20:16 98 T-piece 6.0 03/22/17 20:06 97.7 77 18 109/58 100 03/22/17 16:00 97.7 84 20 135/68 99 Trach Collar 6.0 03/22/17 12:42 98 T-piece 6.0 03/22/17 12:42 T-piece 6.0 28 03/22/17 12:00 97.2 85 19 129/67 96 Room Air Height (Feet): 6 Height (Inches): 0.00 Weight (Pounds): 180 Objective General: eyes closed, nonverbal, unresponsive to voice and painful stimuli Head: normocephalic, without obvious abnormality, atraumatic Eyes: conjunctivae/corneas clear. PERRL, EOM's intact Throat: lips, mucosa, and tongue normal. MMM Neck: supple, symmetrical, trachea midline, and no JVD Lungs: +rhonchi b/l, decreased breath sounds on L side Heart: regular rate and rhythm, S1, S2 normal, no murmur, click, rub or gallop Abdomen: soft, non-tender, non-distended, bowel sounds normal; no masses or organomegaly Extremities: extremities normal, atraumatic, no cyanosis or edema Pulses: 2+ and symmetric Skin: skin color, texture, turgor normal; no rashes or lesions Neurologic: unable to assess Travis Hinojosa M.D. Mar 23, 2017 08:14
[2017-03-23] MEDS: levETIRAcetam 500mg/5ml Liquid GT SCH ×2 (09:37→20:28)
[2017-03-23] MEDS: Depakote 125mg Sprinkles GT SCH ×2 (09:37→20:28)
[2017-03-23] MEDS: Pantoprazole Inj IV SCH (09:38)
[2017-03-23] MEDS: Heparin 5000 units/ml inj SUBQ SCH ×2 (09:40→20:29)
[2017-03-23] MEDS: Meropenem 1 GM in NS 55 ML IVPB SCH ×2 (09:52→20:28)
[2017-03-23 11:49] VITALS: BP 126/71
--- NOTE | 2017-03-23 14:53 | Cardiology Report ---
APPROVED REPORT EKG Measurement Heart [id number] MI 150P18 [id number] Normal sinus rhythm Left axis deviation Septal infarct, age undetermined Abnormal ECG
--- NOTE | 2017-03-23 15:16 | General Progress Note ---
Assessment/Plan Status: stable Assessment/Plan encephalopathy -no med changes Subjective Allergies: Coded Allergies: No Known Allergies (Unverified , 01/02/17) Subjective the pt is pw waxing and waning of consciousness. calm. non verbal. not responsive Objective Last 24 Hour Vital Signs Date Time Temp Pulse Resp B/P (MAP) Pulse Ox O2 Delivery O2 Flow Rate FiO2 03/23/17 12:51 T-piece 6.0 28 03/23/17 12:51 99 T-piece 6.0 28 03/23/17 11:49 97.3 88 23 126/71 100 03/23/17 07:54 97.5 92 22 109/61 100 03/23/17 06:55 96 18 T-piece 6.0 03/23/17 06:55 T-piece 6.0 28 03/23/17 06:55 100 T-piece 6.0 28 03/23/17 04:00 Trach Collar 5.0 30 03/23/17 04:00 97.6 94 18 129/65 100 03/23/17 01:20 T-piece 6.0 28 03/23/17 01:20 98 T-piece 6.0 28 03/23/17 00:47 97.4 83 17 105/61 100 03/22/17 20:23 Trach Collar 5.0 30 03/22/17 20:16 T-piece 6.0 28 03/22/17 20:16 88 20 T-piece 6.0 28 03/22/17 20:16 98 T-piece 6.0 28 03/22/17 20:06 97.7 77 18 109/58 100 03/22/17 16:00 97.7 84 20 135/68 99 Trach Collar 6.0 Height (Feet): 6 Height (Inches): 0.00 Weight (Pounds): 180 General Appearance: no apparent distress, lethargic, confused Neurologic: unresponsive, depressed affect Fortunato Aldrich M.D. Mar 23, 2017 15:16
--- NOTE | 2017-03-23 15:29 | Pulmonology Progress Note ---
Assessment/Plan Problems: (1) Sepsis (2) Nosocomial pneumonia (3) Anemia (4) Sacral decubitus ulcer (5) Paroxysmal a-fib (6) G tube feedings (7) Advanced dementia (8) Tracheostomy in place (9) Functional quadriplegia Assessment/Plan no changes somnolent, comfortable frequent suctioning tolerating feeding wound care. all reviewed pt's son has signed with a hospice company Subjective ROS Limited/Unobtainable: No Constitutional: Reports: no symptoms HEENT: Repors: no symptoms Respiratory: Reports: no symptoms Allergies: Coded Allergies: No Known Allergies (Unverified , 01/02/17) Objective Last 24 Hour Vital Signs Date Time Temp Pulse Resp B/P (MAP) Pulse Ox O2 Delivery O2 Flow Rate FiO2 03/23/17 12:51 T-piece 6.0 03/23/17 12:51 99 T-piece 6.0 28 03/23/17 11:49 97.3 88 23 126/71 100 03/23/17 07:54 97.5 92 22 109/61 100 03/23/17 06:55 96 18 T-piece 6.0 03/23/17 06:55 T-piece 6.0 03/23/17 06:55 100 T-piece 6.0 03/23/17 04:00 Trach Collar 5.0 30 03/23/17 04:00 97.6 94 18 129/65 100 03/23/17 01:20 T-piece 6.0 03/23/17 01:20 98 T-piece 6.0 03/23/17 00:47 97.4 83 17 105/61 100 03/22/17 20:23 Trach Collar 5.0 30 03/22/17 20:16 T-piece 6.0 03/22/17 20:16 88 20 T-piece 6.0 03/22/17 20:16 98 T-piece 6.0 03/22/17 20:06 97.7 77 18 109/58 100 03/22/17 16:00 97.7 84 20 135/68 99 Trach Collar 6.0 Objective General Appearance: WD/WN HEENT: normocephalic, anicteric, trach intact Cardiovascular: normal peripheral pulses, normal rate Abdomen: normal bowel sounds, no organomegaly Genitourinary: normal external genitalia Extremities: no clubbing Skin: no lesions Lymphatic: no neck adenopathy Current Medications Medications (Trade) Dose Ordered Sig/Dorie Route PRN Reason Start Time Stop Time Status Last Admin Dose Admin Acetaminophen (Tylenol) 650 mg Q4H PRN ORAL T>100.5 03/07/17 03:30 04/03/17 15:29 03/22/17 04:21 Albuterol/ Ipratropium (Albuterol/ Ipratropium) 3 ml Q4H PRN HHN Shortness of Breath 03/21/17 13:15 03/26/17 13:14 Dextrose (Dextrose 50%) STAT PRN IV Hypoglycemia 03/07/17 15:30 04/03/17 15:29 Divalproex Sodium (Depakote Sprinkles) 250 mg Q12HR GT 03/07/17 09:00 04/03/17 20:59 03/23/17 09:37 Glycopyrrolate (Robinul) 0.2 mg Q8H PRN IV large secretions 03/17/17 17:00 04/16/17 16:59 03/17/17 20:09 Heparin Sodium (Porcine) (Heparin 5000 units/ml) 5,000 units EVERY 12 HOURS SUBQ 03/07/17 09:00 04/03/17 20:59 03/23/17 09:40 Insulin Aspart (NovoLOG) Q6HR SUBQ 03/07/17 00:00 04/03/17 20:59 03/23/17 12:00 Levetiracetam (Keppra) 500 mg Q12HR GT 03/07/17 09:00 04/03/17 20:59 03/23/17 09:37 Meropenem 1 gm/ Sodium Chloride 55 ml @ 110 mls/hr Q12HR IVPB 03/22/17 21:00 03/27/17 20:59 03/23/17 09:52 Ondansetron HCl (Zofran) 4 mg Q6H PRN IVP Nausea & Vomiting 03/07/17 03:30 04/03/17 15:29 Pantoprazole (Protonix) 40 mg DAILY IV 03/07/17 09:00 04/04/17 08:59 03/23/17 09:38 Polyethylene Glycol (Miralax) 17 gm DAILYPRN PRN GT Constipation 03/07/17 18:15 04/06/17 18:14 03/17/17 06:19 BAM SCHAEFFER Mar 23, 2017 15:29
--- NOTE | 2017-03-23 15:39 | General Progress Note ---
Assessment/Plan Problem List: (1) UTI (urinary tract infection) Assessment & Plan: 2/2 MDR Klebsiella ICD Codes: N39.0 - Urinary tract infection, site not specified SNOMED: 96694718 Qualifiers: Qualified Codes: T83.511A - Infection and inflammatory reaction due to indwelling urethral catheter, initial encounter; N39.0 - Urinary tract infection , site not specified (2) Aspiration pneumonia ICD Codes: J69.0 - Pneumonitis due to inhalation of food and vomit SNOMED: 263733216 (3) Acute toxic metabolic encephalopathy (4) Chronic respiratory failure Assessment & Plan: with hypoxia s/p tracheostomy ICD Codes: J96.10 - Chronic respiratory failure, unspecified whether with hypoxia or hypercapnia SNOMED: 57588649 (5) Paroxysmal A-fib ICD Codes: I48.0 - Paroxysmal atrial fibrillation SNOMED: 517516801 (6) Advanced dementia ICD Codes: F03.90 - Unspecified dementia without behavioral disturbance SNOMED: 33294190 (7) Functional quadriplegia ICD Codes: R53.2 - Functional quadriplegia SNOMED: 949097244910815 (8) Tracheostomy in place ICD Codes: Z93.0 - Tracheostomy status SNOMED: 604415905 (9) S/P percutaneous endoscopic gastrostomy (PEG) tube placement ICD Codes: Z93.1 - Gastrostomy status SNOMED: 759359065 (10) Anemia ICD Codes: D64.9 - Anemia, unspecified SNOMED: 651254891 Qualifiers: Qualified Codes: D64.9 - Anemia, unspecified (11) Gastritis ICD Codes: K29.70 - Gastritis, unspecified, without bleeding SNOMED: 8002487 (12) Seizure disorder ICD Codes: G40.909 - Epilepsy, unspecified, not intractable, without status epilepticus SNOMED: 845789180 (13) HTN (hypertension) ICD Codes: I10 - Essential (primary) hypertension SNOMED: 53921307 (14) Diabetes mellitus ICD Codes: E11.9 - Type 2 diabetes mellitus without complications SNOMED: 08249422 Qualifiers: Qualified Codes: E11.8 - Type 2 diabetes mellitus with unspecified complications (15) Pressure ulcer Assessment & Plan: #1 Right lateral 1st metatarsal head pressure ulcer with yellow scab adhered to wound bed #2 Right Heel unstageable pressure ulcer #3 Sacral unstageable pressure ulcer #4 Left heel DTI pressure ulcer ICD Codes: L89.90 - Pressure ulcer of unspecified site, unspecified stage SNOMED: 498923411 Status: stable Assessment/Plan Antibiotics resumed per ID given CXR w/ LLL consolidation, concern for aspiration PNA: cefepime, amikacin (03/18-)--per ID can d/c off abx s/p vanco (03/18-03/20) Sputum cx shows Pseudomonas and Proteus s/p Vancomycin, polymyxin, cefepime and flagyl (course ended 03/14/17 per ID) s/p levaquin, cefepime and amikacin in ED on 03/04 ID and pulm consulted, appreciate rec's s/p olvera exchange on 03/05/17 F/u cultures--urine cx w/ >100K Klebsiella w/ carbapenem resistance Cont O2 via trach PRN Duonebs PRN Trend CBC, BMP Cont SNF meds Supportive care Wound care CM consulted for d/c back to SNF, awaiting placement. Pt has run out of Medicare SNF days and he has no secondary insurance. He has not qualified for [facility] in past. Awaiting discussion w/ son. Consider home w/ hospice if family agrees. Family stating they are not able to care for pt at home. Son is appealing d/c per CM. SW filed APS and for public guardian referral on 03/18/17 Son has now signed up with hospice and has hired caregivers. Plan for d/c home w / hospice likely tomorrow DVT Prophylaxis: SCD, HSQ Code Status: Full Hospital Classification Declaration: Based on this initial evaluation, and depending on the patient's clinical course, I anticipate that this patient will require hospitalization for 1-2 days for UTI, AMS and close respiratory/ hemodynamic monitoring. Disposition: Once the patient is stable to leave the hospital, I anticipate the patient will likely be discharged to the following environment: back to SNF vs home w/ hospice or health health + caregiver Discussed with patient/family, nursing staff, SW/CM, pulm, ID regarding clinical status, treatment course, and disposition planning. D/w ID re plan for abx. D/w son re plan of care, hospice Time of note may not reflect time of encounter. Subjective Date patient seen: Mar 23, 2017 Time patient seen: 15:39 ROS Limited/Unobtainable: Yes Allergies: Coded Allergies: No Known Allergies (Unverified , 01/02/17) Subjective No acute o/n events HDS Urine cx shows >100K Klebisella w/ carbapenem resistance Olvera exchanged on 03/06/17 Restarted on abx per ID given CXR w/ worsening LLL consolidation. Secretions decreasing. Sputum cx shows Pseudomonas and Proteus Awaiting placement. Spoke to pt's who deferred to son Manuelito. Left msg for Manuelito, awaiting call back. Son appealing discharge per CM. SW has filed APS and public guardian referral Son at bedside today and awaiting caregivers arrival for training. Son has now signed up with hospice and is now ready to take pt home. D/w son extensively regarding plan of care Pt bedbound and nonverbal at baseline Unable to obtain ROS 2/2 dementia and pt nonverbal Objective Last 24 Hour Vital Signs Date Time Temp Pulse Resp B/P (MAP) Pulse Ox O2 Delivery O2 Flow Rate FiO2 03/23/17 12:51 T-piece 6.0 03/23/17 12:51 99 T-piece 6.0 03/23/17 11:49 97.3 88 23 126/71 100 03/23/17 07:54 97.5 92 22 109/61 100 03/23/17 06:55 96 18 T-piece 6.0 03/23/17 06:55 T-piece 6.0 28 03/23/17 06:55 100 T-piece 6.0 03/23/17 04:00 Trach Collar 5.0 30 03/23/17 04:00 97.6 94 18 129/65 100 03/23/17 01:20 T-piece 6.0 03/23/17 01:20 98 T-piece 6.0 03/23/17 00:47 97.4 83 17 105/61 100 03/22/17 20:23 Trach Collar 5.0 30 03/22/17 20:16 T-piece 6.0 28 03/22/17 20:16 88 20 T-piece 6.0 28 03/22/17 20:16 98 T-piece 6.0 28 03/22/17 20:06 97.7 77 18 109/58 100 03/22/17 16:00 97.7 84 20 135/68 99 Trach Collar 6.0 Height (Feet): 6 Height (Inches): 0.00 Weight (Pounds): 180 Objective General: eyes closed, nonverbal, unresponsive to voice and painful stimuli Head: normocephalic, without obvious abnormality, atraumatic Eyes: conjunctivae/corneas clear. PERRL, EOM's intact Throat: lips, mucosa, and tongue normal. MMM Neck: supple, symmetrical, trachea midline, and no JVD Lungs: +rhonchi b/l, decreased breath sounds on L side Heart: regular rate and rhythm, S1, S2 normal, no murmur, click, rub or gallop Abdomen: soft, non-tender, non-distended, bowel sounds normal; no masses or organomegaly Extremities: extremities normal, atraumatic, no cyanosis or edema Pulses: 2+ and symmetric Skin: skin color, texture, turgor normal; no rashes or lesions Neurologic: unable to assess Travis Hinojosa M.D. Mar 23, 2017 15:39
[2017-03-23 16:02] VITALS: BP 133/69
--- NOTE | 2017-03-23 19:48 | Infectious Diseases Prog Note ---
Assessment/Plan Assessment/Plan A) 1) proteus/pseudomonas pna, worsening consolidation on chest x-ray, hx KPC/ Klebsiella uti, hx pseudomonas pseudomonas/providencia pna - chest x-ray - no change - clinically stable 2) proteus/strep/staph aureus/enterococcus sacral wound infection - s/p abx, sacral wound clean and other wounds stable 3) chronic olvera, elevated cr noted 4) trach, no vent 5) sz, dm, htn, anemia, arrhythmia, af, dementia, qp, cva, weakness, dysphagia, g-tube 6) allergies - negative, fh-nc, sh-negative, mar noted, notes and records noted 7) d/w RN P) 1) meropenem - finish abx course, can discharge off abx 2) f/u labs and chest x-ray 3) wound care per protocol 4) continue treatment per primary and consultants 5) orders entered and noted 6) d/w Dr. Robles 7) plan on hospice Subjective Constitutional: Denies: fever HEENT: Reports: congestion - mild Respiratory: Denies: shortness of breath Breasts: Denies: discharge Cardiovascular: Denies: chest pain Gastrointestinal/Abdominal: Denies: nausea, vomiting, diarrhea Genitourinary: Reports: other - + condom catheter Neurologic: Denies: no symptoms Psychiatric: Denies: no symptoms Skin: Denies: rash Hematologic: Denies: bleeding Musculoskeletal: Denies: pain Allergies: Coded Allergies: No Known Allergies (Unverified , 01/02/17) Objective Vital Signs Last 24 Hour Vital Signs Date Time Temp Pulse Resp B/P (MAP) Pulse Ox O2 Delivery O2 Flow Rate FiO2 03/23/17 16:02 97.7 91 18 133/69 99 03/23/17 12:51 T-piece 6.0 03/23/17 12:51 99 T-piece 6.0 03/23/17 11:49 97.3 88 23 126/71 100 03/23/17 07:54 97.5 92 22 109/61 100 03/23/17 06:55 96 18 T-piece 6.0 03/23/17 06:55 T-piece 6.0 28 03/23/17 06:55 100 T-piece 6.0 03/23/17 04:00 Trach Collar 5.0 30 03/23/17 04:00 97.6 94 18 129/65 100 03/23/17 01:20 T-piece 6.0 28 03/23/17 01:20 98 T-piece 6.0 28 03/23/17 00:47 97.4 83 17 105/61 100 03/22/17 20:23 Trach Collar 5.0 30 03/22/17 20:16 T-piece 6.0 28 03/22/17 20:16 88 20 T-piece 6.0 28 03/22/17 20:16 98 T-piece 6.0 28 03/22/17 20:06 97.7 77 18 109/58 100 Height (Feet): 6 Height (Inches): 0.00 Weight (Pounds): 180 General Appearance: no acute distress HEENT: atraumatic, anicteric, mucous membranes moist, pharynx normal, supple, no JVD, status post trach Respiratory/Chest: crackles/rales, rhonchi - bilaterally Cardiovascular: normal rate, regular rhythm, no gallop/murmur, no JVD Abdomen: normal bowel sounds, soft, non tender, no organomegaly, non distended Genitourinary: other - condom catheter - urine clear Extremities: no cyanosis Skin: no rash 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 Correlate with clinical findings 03/22 - chest x-ray: Procedure: XRAY Chest 1v Indication: SOB Technique: One view of the chest Comparison: 03/21/2017 Findings: Tracheostomy, right infrahilar atelectasis, left basilar semi-lunar density, left lateral basilar atelectasis this, all unchanged. No new infiltrates or effusions. Normal heart size Impression: Unchanged, over one day, findings as above. Microbiology Date/Time Source Procedure Growth Status 03/18/17 20:55 Sputum Gram Stain - Final Complete 03/18/17 20:55 Sputum Culture - Final Pseudomonas Aeruginosa Proteus Mirabilis Esbl Complete 03/04/17 17:00 Stool Clostridium difficile Toxin Assay - Final Complete 03/04/17 12:30 Urine,Clean Catch Urine Culture - Final K.pneumoniae Carbapenem Resist Complete 03/04/17 19:00 Sacral Wound Gram Stain - Final Complete 03/04/17 19:00 Wound Culture - Final Proteus Mirabilis Staphylococcus Aureus - Mrsa Enterococcus Faecalis Complete Labs Test 03/21/17 06:10 03/21/17 21:05 03/22/17 06:42 White Blood Count 9.1 K/UL (4.8-10.8) 10.7 K/UL (4.8-10.8) Red Blood Count 3.35 M/UL (4.70-6.10) 3.03 M/UL (4.70-6.10) Hemoglobin 9.9 G/DL (14.2-18.0) 9.0 G/DL (14.2-18.0) Hematocrit 30.7 % (42.0-52.0) 27.4 % (42.0-52.0) Mean Corpuscular Volume 92 FL (80-99) 91 FL (80-99) Mean Corpuscular Hemoglobin 29.6 PG (27.0-31.0) 29.7 PG (27.0-31.0) Mean Corpuscular Hemoglobin Concent 32.4 G/DL (32.0-36.0) 32.7 G/DL (32.0-36.0) Red Cell Distribution Width 15.2 % (11.6-14.8) 15.3 % (11.6-14.8) Platelet Count 232 K/UL (150-450) 241 K/UL (150-450) Mean Platelet Volume 7.4 FL (6.5-10.1) 7.7 FL (6.5-10.1) Neutrophils (%) (Auto) 71.3 % (45.0-75.0) 66.1 % (45.0-75.0) Lymphocytes (%) (Auto) 14.7 % (20.0-45.0) 22.1 % (20.0-45.0) Monocytes (%) (Auto) 12.4 % (1.0-10.0) 10.6 % (1.0-10.0) Eosinophils (%) (Auto) 1.0 % (0.0-3.0) 0.4 % (0.0-3.0) Basophils (%) (Auto) 0.5 % (0.0-2.0) 0.8 % (0.0-2.0) Sodium Level 134 MMOL/L (136-145) 135 MMOL/L (136-145) Potassium Level 3.8 MMOL/L (3.5-5.1) 4.2 MMOL/L (3.5-5.1) Chloride Level 94 MMOL/L (98-107) 94 MMOL/L (98-107) Carbon Dioxide Level 36 MMOL/L (21-32) 36 MMOL/L (21-32) Anion Gap 4 mmol/L (5-15) 5 mmol/L (5-15) Blood Urea Nitrogen 26 mg/dL (7-18) 34 mg/dL (7-18) Creatinine 1.1 MG/DL (0.55-1.30) 1.4 MG/DL (0.55-1.30) Estimat Glomerular Filtration Rate mL/min (>60) mL/min (>60) Glucose Level 211 MG/DL (74-106) 185 MG/DL (74-106) Calcium Level 9.6 MG/DL (8.5-10.1) 9.5 MG/DL (8.5-10.1) Vancomycin Level Trough 10.8 ug/mL (5.0-12.0) Current Medications Medications (Trade) Dose Ordered Sig/Dorie Route PRN Reason Start Time Stop Time Status Last Admin Dose Admin Acetaminophen (Tylenol) 650 mg Q4H PRN ORAL T>100.5 03/07/17 03:30 04/03/17 15:29 03/22/17 04:21 Albuterol/ Ipratropium (Albuterol/ Ipratropium) 3 ml Q4H PRN HHN Shortness of Breath 03/21/17 13:15 03/26/17 13:14 Dextrose (Dextrose 50%) STAT PRN IV Hypoglycemia 03/07/17 15:30 04/03/17 15:29 Divalproex Sodium (Depakote Sprinkles) 250 mg Q12HR GT 03/07/17 09:00 04/03/17 20:59 03/23/17 09:37 Glycopyrrolate (Robinul) 0.2 mg Q8H PRN IV large secretions 03/17/17 17:00 04/16/17 16:59 03/17/17 20:09 Heparin Sodium (Porcine) (Heparin 5000 units/ml) 5,000 units EVERY 12 HOURS SUBQ 03/07/17 09:00 04/03/17 20:59 03/23/17 09:40 Insulin Aspart (NovoLOG) Q6HR SUBQ 03/07/17 00:00 04/03/17 20:59 03/23/17 18:08 Levetiracetam (Keppra) 500 mg Q12HR GT 03/07/17 09:00 04/03/17 20:59 03/23/17 09:37 Meropenem 1 gm/ Sodium Chloride 55 ml @ 110 mls/hr Q12HR IVPB 03/22/17 21:00 03/27/17 20:59 03/23/17 09:52 Ondansetron HCl (Zofran) 4 mg Q6H PRN IVP Nausea & Vomiting 03/07/17 03:30 04/03/17 15:29 Pantoprazole (Protonix) 40 mg DAILY IV 03/07/17 09:00 04/04/17 08:59 03/23/17 09:38 Polyethylene Glycol (Miralax) 17 gm DAILYPRN PRN GT Constipation 03/07/17 18:15 04/06/17 18:14 03/17/17 06:19 JENNIFER BEVERLY Mar 23, 2017 19:48
[2017-03-23 20:00] VITALS: BP 117/61
[2017-03-24] MEDS: NovoLOG Insulin Flexpen SUBQ SCH ×2 (06:15→11:54)
[2017-03-24 06:51] LABS: ANION GAP 4 mmol/L (5-15); CARBON DIOXIDE 38 MMOL/L (21-32); CHLORIDE 96 MMOL/L (98-107); CREATININE 1.2 MG/DL (0.55-1.30); POTASSIUM 4.4 MMOL/L (3.5-5.1); SODIUM 138 MMOL/L (136-145)
[2017-03-24 07:04] LABS: BASOPHILS % (AUTO) 1.1 % (0.0-2.0); EOSINOPHILS % (AUTO) 2.1 % (0.0-3.0); LYMPHOCYTES % (AUTO) 25.4 % (20.0-45.0); MEAN CORPUSCULAR HEMOGLOBIN 28.4 PG (27.0-31.0); MEAN CORPUSCULAR HGB CONC 31.1 G/DL (32.0-36.0); MEAN CORPUSCULAR VOLUME 91 FL (80-99); MEAN PLATELET VOLUME 7.1 FL (6.5-10.1); MONOCYTES % (AUTO) 11.2 % (1.0-10.0); NEUTROPHILS % (AUTO) 60.3 % (45.0-75.0); PLATELET COUNT 249 K/UL (150-450); RED CELL DISTRIBUTION WIDTH 15.1 % (11.6-14.8); WHITE BLOOD COUNT 8.2 K/UL (4.8-10.8)
[2017-03-24 07:48] VITALS: BP 120/56
[2017-03-24] MEDS: levETIRAcetam 500mg/5ml Liquid GT SCH (08:12)
[2017-03-24] MEDS: Pantoprazole Inj IV SCH (08:12)
[2017-03-24] MEDS: Depakote 125mg Sprinkles GT SCH (08:12)
[2017-03-24] MEDS: Meropenem 1 GM in NS 55 ML IVPB SCH (08:12)
[2017-03-24] MEDS: Heparin 5000 units/ml inj SUBQ SCH (08:28)
--- NOTE | 2017-03-24 10:01 | Wound Nurse Progress Note ---
Wound RN Progress Note Wound Consult Reassessment -noted good progress no further deterioration present, current wound care remains effective. #1 Right 1st metatarsal head pressure ulcer with yellow scab adhered to wound bed-noted good progress, no further deterioration present, scab has resolved , dry intact skin. #2 Right Heel unstageable pressure ulcer- no further deterioration, remains unstageable, current treatment remains effective. #3 Sacral unstageable pressure ulcer- noted good progress, noted wound bed with pink in color 75%,maroon 10%, yellow 25% , current wound care effective. 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 presents with lovell color. resolving Recommendation -Right Heel unstageable pressure ulcer and Sacral unstageable pressure ulcer, Cleanse with saline, pat dry, apply skin barrier film, apply Therahoney gel wound bed, cover Biatain Silicone drg daily and PRN soiled/dislodged -Right lateral 1st metatarsal head pressure ulcer with yellow scab adhered to wound bed and Left heel DTI pressure ulcer, Cleanse with saline, pat dry, apply skin barrier film daily and leave area open to air -Keep clean and dry -Turn and reposition -Low air loss mattress -Optimize nutrition -Offload both heels -Heel protector on both heels -Assess and f/u with MD for any changes of condition to skin noted. RUSH CAMPOS Mar 24, 2017 10:01
--- NOTE | 2017-03-24 11:10 | General Progress Note ---
Assessment/Plan Status: stable Assessment/Plan encephalopathy -no med changes Subjective Neurologic/Psychiatric: Reports: anxiety, depressed, emotional problems Allergies: Coded Allergies: No Known Allergies (Unverified , 01/02/17) Subjective the pt is pw waxing and waning of consciousness. calm. non verbal. not responsive Objective Last 24 Hour Vital Signs Date Time Temp Pulse Resp B/P (MAP) Pulse Ox O2 Delivery O2 Flow Rate FiO2 03/24/17 10:27 120 18 T-piece 6.0 03/24/17 10:27 T-piece 6.0 28 03/24/17 10:26 99 T-piece 6.0 28 03/24/17 07:48 98.1 94 19 120/56 100 Trach Collar 5.0 30 03/24/17 04:59 Trach Collar 5.0 30 03/24/17 04:08 T-piece 6.0 03/24/17 04:08 99 T-piece 6.0 03/24/17 00:08 Trach Collar 5.0 30 03/23/17 20:17 T-piece 6.0 03/23/17 20:17 99 T-piece 6.0 28 03/23/17 20:16 99 18 T-piece 6.0 28 03/23/17 20:00 97.7 87 20 117/61 100 03/23/17 20:00 Trach Collar 5.0 30 03/23/17 16:02 97.7 91 18 133/69 99 03/23/17 12:51 T-piece 6.0 28 03/23/17 12:51 99 T-piece 6.0 03/23/17 11:49 97.3 88 23 126/71 100 Intake and Output 03/24/17 03/25/17 19:00 07:00 Intake Total 370 ml Balance 370 ml Intake Free Water 150 ml IV Total 55 ml Tube Feeding 165 ml Laboratory Tests 03/24/17 05:40: White Blood Count 8.2, Red Blood Count 3.40L, Hemoglobin 9.6L, Hematocrit 31.0L , Mean Corpuscular Volume 91, Mean Corpuscular Hemoglobin 28.4, Mean Corpuscular Hemoglobin Concent 31.1L, Red Cell Distribution Width 15.1H, Platelet Count 249, Mean Platelet Volume 7.1, Neutrophils (%) (Auto) 60.3, Lymphocytes (%) (Auto) 25.4, Monocytes (%) (Auto) 11.2H, Eosinophils (%) (Auto) 2.1, Basophils (%) (Auto) 1.1, Sodium Level 138, Potassium Level 4.4, Chloride Level 96L, Carbon Dioxide Level 38H, Anion Gap 4L, Blood Urea Nitrogen 30H, Creatinine 1.2, Estimat Glomerular Filtration Rate , Glucose Level 206H, Calcium Level 10.0 Height (Feet): 6 Height (Inches): 0.00 Weight (Pounds): 180 General Appearance: no apparent distress, alert, confused Fortunato Aldrich M.D. Mar 24, 2017 11:10
[2017-03-24 12:04] VITALS: BP 108/62
--- NOTE | 2017-03-24 13:28 | Infectious Diseases Prog Note ---
Assessment/Plan Assessment/Plan A) 1) proteus/pseudomonas pna, worsening consolidation on chest x-ray, hx KPC/ Klebsiella uti, hx pseudomonas pseudomonas/providencia pna - chest x-ray - no change - clinically stable 2) proteus/strep/staph aureus/enterococcus sacral wound infection - s/p abx, sacral wound clean and other wounds stable 3) chronic olvera, elevated cr noted 4) trach, no vent 5) sz, dm, htn, anemia, arrhythmia, af, dementia, qp, cva, weakness, dysphagia, g-tube 6) allergies - negative, fh-nc, sh-negative, mar noted, notes and records noted 7) d/w RN P) 1) meropenem - continue for now, finish abx course, can discharge off abx 2) f/u labs and chest x-ray 3) wound care per protocol 4) continue treatment per primary and consultants 5) orders entered and noted 6) d/w Dr. Robles 7) plan on hospice Subjective Constitutional: Reports: fatigue, Denies: fever HEENT: Denies: congestion Respiratory: Denies: shortness of breath Cardiovascular: Denies: chest pain Gastrointestinal/Abdominal: Denies: nausea Genitourinary: Denies: dysuria, hematuria Neurologic: Reports: weakness, other - lethargic Psychiatric: Denies: no symptoms Skin: Denies: rash Hematologic: Denies: no symptoms Musculoskeletal: Denies: pain Allergies: Coded Allergies: No Known Allergies (Unverified , 01/02/17) Objective Vital Signs Last 24 Hour Vital Signs Date Time Temp Pulse Resp B/P (MAP) Pulse Ox O2 Delivery O2 Flow Rate FiO2 03/24/17 12:59 99 T-piece 6.0 03/24/17 12:59 T-piece 6.0 28 03/24/17 12:04 98.3 93 18 108/62 99 03/24/17 10:27 120 18 T-piece 6.0 28 03/24/17 10:27 T-piece 6.0 28 03/24/17 10:26 99 T-piece 6.0 28 03/24/17 07:48 98.1 94 19 120/56 100 Trach Collar 5.0 30 03/24/17 04:59 Trach Collar 5.0 30 03/24/17 04:08 T-piece 6.0 28 03/24/17 04:08 99 T-piece 6.0 28 03/24/17 00:08 Trach Collar 5.0 30 03/23/17 20:17 T-piece 6.0 28 03/23/17 20:17 99 T-piece 6.0 28 03/23/17 20:16 99 18 T-piece 6.0 28 03/23/17 20:00 97.7 87 20 117/61 100 03/23/17 20:00 Trach Collar 5.0 30 03/23/17 16:02 97.7 91 18 133/69 99 Height (Feet): 6 Height (Inches): 0.00 Weight (Pounds): 180 General Appearance: no acute distress HEENT: normocephalic, atraumatic, anicteric, mucous membranes moist, pharynx normal, supple, no JVD, status post trach Respiratory/Chest: crackles/rales, rhonchi - bilaterally Cardiovascular: normal rate, regular rhythm, no gallop/murmur, no JVD Abdomen: normal bowel sounds, soft, non tender, no organomegaly, non distended Genitourinary: other - + olvera - urine clear Extremities: no cyanosis Skin: no rash, other - wounds covered 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 Correlate with clinical findings 03/22 - chest x-ray: Procedure: XRAY Chest 1v Indication: SOB Technique: One view of the chest Comparison: 03/21/2017 Findings: Tracheostomy, right infrahilar atelectasis, left basilar semi-lunar density, left lateral basilar atelectasis this, all unchanged. No new infiltrates or effusions. Normal heart size Impression: Unchanged, over one day, findings as above. Microbiology Date/Time Source Procedure Growth Status 03/18/17 20:55 Sputum Gram Stain - Final Complete 03/18/17 20:55 Sputum Culture - Final Pseudomonas Aeruginosa Proteus Mirabilis Esbl Complete 03/04/17 17:00 Stool Clostridium difficile Toxin Assay - Final Complete 03/04/17 12:30 Urine,Clean Catch Urine Culture - Final K.pneumoniae Carbapenem Resist Complete 03/04/17 19:00 Sacral Wound Gram Stain - Final Complete 03/04/17 19:00 Wound Culture - Final Proteus Mirabilis Staphylococcus Aureus - Mrsa Enterococcus Faecalis Complete Laboratory Tests Test 03/24/17 05:40 White Blood Count 8.2 K/UL (4.8-10.8) Red Blood Count 3.40 M/UL (4.70-6.10) L Hemoglobin 9.6 G/DL (14.2-18.0) L Hematocrit 31.0 % (42.0-52.0) L Mean Corpuscular Volume 91 FL (80-99) Mean Corpuscular Hemoglobin 28.4 PG (27.0-31.0) Mean Corpuscular Hemoglobin Concent 31.1 G/DL (32.0-36.0) L Red Cell Distribution Width 15.1 % (11.6-14.8) H Platelet Count 249 K/UL (150-450) Mean Platelet Volume 7.1 FL (6.5-10.1) Neutrophils (%) (Auto) 60.3 % (45.0-75.0) Lymphocytes (%) (Auto) 25.4 % (20.0-45.0) Monocytes (%) (Auto) 11.2 % (1.0-10.0) H Eosinophils (%) (Auto) 2.1 % (0.0-3.0) Basophils (%) (Auto) 1.1 % (0.0-2.0) Sodium Level 138 MMOL/L (136-145) Potassium Level 4.4 MMOL/L (3.5-5.1) Chloride Level 96 MMOL/L (98-107) L Carbon Dioxide Level 38 MMOL/L (21-32) H Anion Gap 4 mmol/L (5-15) L Blood Urea Nitrogen 30 mg/dL (7-18) H Creatinine 1.2 MG/DL (0.55-1.30) Estimat Glomerular Filtration Rate mL/min (>60) Glucose Level 206 MG/DL (74-106) H Calcium Level 10.0 MG/DL (8.5-10.1) Current Medications Medications (Trade) Dose Ordered Sig/Dorie Route PRN Reason Start Time Stop Time Status Last Admin Dose Admin Acetaminophen (Tylenol) 650 mg Q4H PRN ORAL T>100.5 03/07/17 03:30 04/03/17 15:29 03/22/17 04:21 Albuterol/ Ipratropium (Albuterol/ Ipratropium) 3 ml Q4H PRN HHN Shortness of Breath 03/21/17 13:15 03/26/17 13:14 Dextrose (Dextrose 50%) STAT PRN IV Hypoglycemia 03/07/17 15:30 04/03/17 15:29 Divalproex Sodium (Depakote Sprinkles) 250 mg Q12HR GT 03/07/17 09:00 04/03/17 20:59 03/24/17 08:12 Glycopyrrolate (Robinul) 0.2 mg Q8H PRN IV large secretions 03/17/17 17:00 04/16/17 16:59 03/17/17 20:09 Heparin Sodium (Porcine) (Heparin 5000 units/ml) 5,000 units EVERY 12 HOURS SUBQ 03/07/17 09:00 04/03/17 20:59 03/24/17 08:28 Insulin Aspart (NovoLOG) Q6HR SUBQ 03/07/17 00:00 04/03/17 20:59 03/24/17 11:54 Levetiracetam (Keppra) 500 mg Q12HR GT 03/07/17 09:00 04/03/17 20:59 03/24/17 08:12 Meropenem 1 gm/ Sodium Chloride 55 ml @ 110 mls/hr Q12HR IVPB 03/22/17 21:00 03/27/17 20:59 03/24/17 08:12 Ondansetron HCl (Zofran) 4 mg Q6H PRN IVP Nausea & Vomiting 03/07/17 03:30 04/03/17 15:29 Pantoprazole (Protonix) 40 mg DAILY IV 03/07/17 09:00 04/04/17 08:59 03/24/17 08:12 Polyethylene Glycol (Miralax) 17 gm DAILYPRN PRN GT Constipation 03/07/17 18:15 04/06/17 18:14 03/17/17 06:19 JENNIFER BEVERLY Mar 24, 2017 13:27
[2017-03-24 15:45] VITALS: BP 107/53
--- NOTE | 2017-03-24 16:16 | Pulmonology Progress Note ---
Assessment/Plan Problems: (1) Sepsis (2) Nosocomial pneumonia (3) Anemia (4) Sacral decubitus ulcer (5) Paroxysmal a-fib (6) G tube feedings (7) Advanced dementia (8) Tracheostomy in place (9) Functional quadriplegia Assessment/Plan no changes d/w son extensively somnolent, comfortable frequent suctioning tolerating feeding wound care. all reviewed pt's son has signed with a hospice company Subjective ROS Limited/Unobtainable: No Constitutional: Reports: no symptoms HEENT: Repors: no symptoms Respiratory: Reports: no symptoms Cardiovascular: Reports: no symptoms Allergies: Coded Allergies: No Known Allergies (Unverified , 01/02/17) Objective Last 24 Hour Vital Signs Date Time Temp Pulse Resp B/P (MAP) Pulse Ox O2 Delivery O2 Flow Rate FiO2 03/24/17 15:45 98.2 95 18 107/53 100 Trach Collar 5.0 30 03/24/17 12:59 99 T-piece 6.0 28 03/24/17 12:59 T-piece 6.0 28 03/24/17 12:04 98.3 93 18 108/62 99 03/24/17 10:27 120 18 T-piece 6.0 28 03/24/17 10:27 T-piece 6.0 28 03/24/17 10:26 99 T-piece 6.0 28 03/24/17 07:48 98.1 94 19 120/56 100 Trach Collar 5.0 30 03/24/17 04:59 Trach Collar 5.0 30 03/24/17 04:08 T-piece 6.0 28 03/24/17 04:08 99 T-piece 6.0 28 03/24/17 00:08 Trach Collar 5.0 30 03/23/17 20:17 T-piece 6.0 28 03/23/17 20:17 99 T-piece 6.0 28 03/23/17 20:16 99 18 T-piece 6.0 28 03/23/17 20:00 97.7 87 20 117/61 100 03/23/17 20:00 Trach Collar 5.0 30 Intake and Output 03/24/17 03/25/17 19:00 07:00 Intake Total 795 ml Output Total 200 ml Balance 595 ml Intake Free Water 300 ml IV Total 55 ml Tube Feeding 440 ml Output Urine Total 200 ml Objective General Appearance: WD/WN HEENT: normocephalic, anicteric, trach intact Cardiovascular: normal peripheral pulses, normal rate Abdomen: normal bowel sounds, no organomegaly Genitourinary: normal external genitalia Extremities: no clubbing Skin: no lesions Lymphatic: no neck adenopathy Laboratory Tests 03/24/17 05:40: White Blood Count 8.2, Red Blood Count 3.40L, Hemoglobin 9.6L, Hematocrit 31.0L , Mean Corpuscular Volume 91, Mean Corpuscular Hemoglobin 28.4, Mean Corpuscular Hemoglobin Concent 31.1L, Red Cell Distribution Width 15.1H, Platelet Count 249, Mean Platelet Volume 7.1, Neutrophils (%) (Auto) 60.3, Lymphocytes (%) (Auto) 25.4, Monocytes (%) (Auto) 11.2H, Eosinophils (%) (Auto) 2.1, Basophils (%) (Auto) 1.1, Sodium Level 138, Potassium Level 4.4, Chloride Level 96L, Carbon Dioxide Level 38H, Anion Gap 4L, Blood Urea Nitrogen 30H, Creatinine 1.2, Estimat Glomerular Filtration Rate , Glucose Level 206H, Calcium Level 10.0 Current Medications Medications (Trade) Dose Ordered Sig/Dorie Route PRN Reason Start Time Stop Time Status Last Admin Dose Admin Acetaminophen (Tylenol) 650 mg Q4H PRN ORAL T>100.5 03/07/17 03:30 04/03/17 15:29 03/22/17 04:21 Albuterol/ Ipratropium (Albuterol/ Ipratropium) 3 ml Q4H PRN HHN Shortness of Breath 03/21/17 13:15 03/26/17 13:14 Dextrose (Dextrose 50%) STAT PRN IV Hypoglycemia 03/07/17 15:30 04/03/17 15:29 Divalproex Sodium (Depakote Sprinkles) 250 mg Q12HR GT 03/07/17 09:00 04/03/17 20:59 03/24/17 08:12 Glycopyrrolate (Robinul) 0.2 mg Q8H PRN IV large secretions 03/17/17 17:00 04/16/17 16:59 03/17/17 20:09 Heparin Sodium (Porcine) (Heparin 5000 units/ml) 5,000 units EVERY 12 HOURS SUBQ 03/07/17 09:00 04/03/17 20:59 03/24/17 08:28 Insulin Aspart (NovoLOG) Q6HR SUBQ 03/07/17 00:00 04/03/17 20:59 03/24/17 11:54 Levetiracetam (Keppra) 500 mg Q12HR GT 03/07/17 09:00 04/03/17 20:59 03/24/17 08:12 Meropenem 1 gm/ Sodium Chloride 55 ml @ 110 mls/hr Q12HR IVPB 03/22/17 21:00 03/27/17 20:59 03/24/17 08:12 Ondansetron HCl (Zofran) 4 mg Q6H PRN IVP Nausea & Vomiting 03/07/17 03:30 04/03/17 15:29 Pantoprazole (Protonix) 40 mg DAILY IV 03/07/17 09:00 04/04/17 08:59 03/24/17 08:12 Polyethylene Glycol (Miralax) 17 gm DAILYPRN PRN GT Constipation 03/07/17 18:15 04/06/17 18:14 03/17/17 06:19 BAM SCHAEFFER Mar 24, 2017 16:16
[2017-03-24] MEDS ORDERED: NS 500ML ONE (16:59)
[2017-03-24] MEDS ORDERED: Tubing IV Secondary IV ONE (16:59)
[2017-03-24] MEDS ORDERED: Sterile Water Irrig 1000ml IRRIG ONE (16:59)
--- NOTE | 2017-03-24 17:00 | Discharge Summary ---
Discharge Summary Hospital Course Date of Admission Mar 04, 2017 at 15:50 Date of Discharge 03/24/17 Admitting Diagnosis Pneumonia, UTI HPI 81 year old male with pmh of HTN, DM2, pAfib, gastritis, seizure disorder, advanced dementia, s/p trach and PEG, recurrently infected sacral decubitus ulcers, bed bound and nonverbal at baseline who presents from SNF with tachycardia and lethargy. Pt recently admitted and discharged 02/08/17 for severe sepsis 2/2 aspiration PNA and UTI w/ MDR Klebsiella and pseudomonas. Pt found ot have HR up to 118 at SNF. He was also more lethargic than baseline. In ED, VSS. Pt found to have UTI and possible pneumonia. Consultations Pulmonary, Infectious disease Hospital Course Pt was admitted and seen by ID and pulm. There was concern for recurrent aspiration pneumonia as well as UTI. Pt was continued on broad-spectrum antibiotics. Pt with multidrug resistant Klebsiella growing in urine. Antibiotics were adjusted per ID. Fole was exchanged. Pt was planned for discharge back to SNF but it was found that pt had run out of medicare days. Pt also had no secondary insurance as [employer] application had been denied in past given pt's assets. Pt's family states unable to pay out of pocket for SNF and unable to care for him at home. Ater extensive discussion, pt's son agreed to hospice and he was able to hire a caregiver for assistance at home. Pt was ultimately discharged home with hospice. Discharge diagnoses (1) UTI (urinary tract infection) Assessment & Plan: 2/2 MDR Klebsiella ICD Codes: N39.0 - Urinary tract infection, site not specified SNOMED: 53822617 Qualifiers: Qualified Codes: T83.511A - Infection and inflammatory reaction due to indwelling urethral catheter, initial encounter; N39.0 - Urinary tract infection , site not specified (2) Aspiration pneumonia ICD Codes: J69.0 - Pneumonitis due to inhalation of food and vomit SNOMED: 147980852 (3) Acute toxic metabolic encephalopathy (4) Chronic respiratory failure Assessment & Plan: with hypoxia s/p tracheostomy ICD Codes: J96.10 - Chronic respiratory failure, unspecified whether with hypoxia or hypercapnia SNOMED: 89589380 (5) Paroxysmal A-fib ICD Codes: I48.0 - Paroxysmal atrial fibrillation SNOMED: 259699992 (6) Advanced dementia ICD Codes: F03.90 - Unspecified dementia without behavioral disturbance SNOMED: 03128621 (7) Functional quadriplegia ICD Codes: R53.2 - Functional quadriplegia SNOMED: 500588884016459 (8) Tracheostomy in place ICD Codes: Z93.0 - Tracheostomy status SNOMED: 761488241 (9) S/P percutaneous endoscopic gastrostomy (PEG) tube placement ICD Codes: Z93.1 - Gastrostomy status SNOMED: 920649423 (10) Anemia ICD Codes: D64.9 - Anemia, unspecified SNOMED: 216994115 Qualifiers: Qualified Codes: D64.9 - Anemia, unspecified (11) Gastritis ICD Codes: K29.70 - Gastritis, unspecified, without bleeding SNOMED: 6044538 (12) Seizure disorder ICD Codes: G40.909 - Epilepsy, unspecified, not intractable, without status epilepticus SNOMED: 458936269 (13) HTN (hypertension) ICD Codes: I10 - Essential (primary) hypertension SNOMED: 67367420 (14) Diabetes mellitus ICD Codes: E11.9 - Type 2 diabetes mellitus without complications SNOMED: 20138092 Qualifiers: Qualified Codes: E11.8 - Type 2 diabetes mellitus with unspecified complications (15) Pressure ulcer Assessment & Plan: #1 Right lateral 1st metatarsal head pressure ulcer with yellow scab adhered to wound bed #2 Right Heel unstageable pressure ulcer #3 Sacral unstageable pressure ulcer #4 Left heel DTI pressure ulcer ICD Codes: L89.90 - Pressure ulcer of unspecified site, unspecified stage SNOMED: 284437481 Discharge physical exam General: eyes closed, non-verbal, unresponsive to voice or painful stimuli Head: normocephalic, without obvious abnormality, atraumatic Eyes: conjunctivae/corneas clear. PERRL, EOM's intact Throat: lips, mucosa, and tongue normal. MMM Neck: supple, symmetrical, trachea midline, and no JVD Lungs: clear to auscultation bilaterally Heart: regular rate and rhythm, S1, S2 normal, no murmur, click, rub or gallop Abdomen: soft, non-tender, non-distended, bowel sounds normal; no masses or organomegaly : +olvera Extremities: extremities normal, atraumatic, no cyanosis or edema Pulses: 2+ and symmetric Skin: skin color, texture, turgor normal; no rashes or lesions Neurologic: unable to asssess Discharge Medications Continued Medications: Acetaminophen* (Acetaminophen*) 160 Mg/5 Ml Liquid 320 MG GT Q6H PRN for Mild Pain/Temp > 100.5, ML Amino Acids/Protein Hydrolys (Pro-Stat Liquid) 30 Ml Liquid.pkt 30 ML GT DAILY, ML Ascorbic Acid* (Vitamin C*) 250 Mg Tablet Unknown Dose GT DAILY, #30 TAB 0 Refills Ascorbic Acid* (Vitamin C*) 250 Mg Tablet 250 MG GT DAILY, #30 TAB 0 Refills Chlorhexidine Gluconate* (Hibiclens*) 118 Ml Liquid 5 OZ ORAL EVERY 12 HOURS, ML Divalproex Sodium* (Depakote*) 250 Mg Tablet.dr 250 MG PO Q12HR, TAB Docusate Sodium (Docusate Sodium) 50 Mg/5 Ml Liquid 100 MG GT TWICE A DAY, EA Docusate Sodium* (Colace*) 100 Mg Capsule 100 MG ORAL TWICE A DAY, CAP Famotidine (Famotidine) 20 Mg Tablet 20 MG GT TWICE A DAY, #60 TAB 0 Refills Ferrous Sulfate (Ferrous Sulfate) 220 Mg/5 Ml Elixir 7.5 MG GT DAILY, ML Heparin Sod (Porcine) (Heparin Sodium*) 5 000/1 Ml Vial 5000 UNITS SUBQ EVERY 12 HOURS, VIAL Hydrocodone Bit/Acetaminophen 5-325* ([place] 5-325 Tablet*) 1 Each Tablet 1 TAB ORAL Q6HR PRN for For Pain, TAB Insulin Aspart* (Novolog*) 100 Unit/1 Ml Insuln.pen 0 SUBQ BEFORE MEALS AND HS, #1 EA 0 Refills Insulin Aspart* (Novolog*) 100 Unit/1 Ml Insuln.pen 0 SUBQ, #1 EA 0 Refills Insulin Detemir (Levemir Flextouch) 100 Unit/1 Ml Insuln.pen 42 UNIT SQ BID, EA Ipratropium/Albuterol Sulfate (Combivent Respimat Inhal [place]) 4 Gm Mist.inhal 3 ML IH EVERY 6 HOURS PRN for Shortness of Breath, GM Ipratropium/Albuterol Sulfate (DuoNeb 0.5-3(2.5)mg/3ml) 3 Ml Ampul.neb 3 ML HHN, EA Lacosamide (Vimpat) 100 Mg Tablet 100 MG GT EVERY 12 HOURS, TAB Levetiracetam (Keppra) 500 Mg Tablet 500 MG ORAL EVERY 12 HOURS, #60 TAB 0 Refills Levetiracetam* (Levetiracetam*) 100 Mg/1 Ml Solution 1500 MG GT BID Metoprolol Tartrate (Metoprolol Tartrate) 25 Mg Tablet 12.5 MG GT Q12HR, #60 TAB Ondansetron* (Zofran*) 4 Mg Tablet 4 MG ORAL Q4HR PRN for Nausea & Vomiting, TAB Ondansetron* (Zofran*) 4 Mg Tablet 4 MG GT Q4HR PRN for Nausea & Vomiting, TAB Pantoprazole* (Protonix*) 40 Mg Tablet.dr 40 MG ORAL DAILY, TAB Polyethylene Glycol 3350* (Polyethylene Glycol 3350*) 17 Gm Powd.pack 17 GM GT DAILY PRN for Constipation, PACKET Polyethylene Glycol 3350* (Miralax*) 17 Gm Powd.pack 17 GM ORAL DAILY, PACKET Valproate Sodium (Depakene) 250 Mg/5 Ml Solution 500 MG GT EVERY 8 HOURS Zinc Sulfate (Zinc Sulfate*) 220 Mg Capsule 220 MG GT DAILY, CAP 0 Refills Discharge Condition Upon Discharge: stable Discharge Disposition Patient was discharged to home w/ hospice Discharge Diagnoses: Travis Hinojosa M.D. Mar 24, 2017 17:00
== END 2017-03-24 17:00 | disposition hospice, home (50) | DRG 177 ==
LOC: EDUNIT# 11:52 → EDBD 11:52 → EMR 12:25 → 2E 15:50 → EDBEDREQ 16:28 → 4E 03-06 23:21
DX: J69.0 Pneumonitis due to inhalation of food and vomit (principal); L89.154 Pressure ulcer of sacral region, stage 4; L89.614 Pressure ulcer of right heel, stage 4; G92 Toxic encephalopathy; R40.3 Persistent vegetative state; J96.11 Chronic respiratory failure with hypoxia; R53.2 Functional quadriplegia; N39.0 Urinary tract infection, site not specified; J98.11 Atelectasis; J15.1 Pneumonia due to Pseudomonas; Z93.0 Tracheostomy status; I48.0 Paroxysmal atrial fibrillation; F03.90 Unspecified dementia, unspecified severity, without behavioral disturbance, psychotic disturbance, mood disturbance, and anxiety; R13.10 Dysphagia, unspecified; I10 Essential (primary) hypertension; Z93.1 Gastrostomy status; D64.9 Anemia, unspecified; K29.70 Gastritis, unspecified, without bleeding; G40.909 Epilepsy, unspecified, not intractable, without status epilepticus; E11.9 Type 2 diabetes mellitus without complications
CPT/HCPCS: 36415; 71010; 72220; 80048; 80053; 80069; 80150; 80202; 81003; 82550; 82607; 82746; 82962; 83540; 83550; 83615; 83735; 83880; 84100; 84484; 85007; 85025; 85044; 85060; 85610; 85651; 85730; 86140; 87070; 87081; 87086; 87181; 87205; 87324; 93005; 93970; 94640; 94664; 94760; 99285; J1815; J7620